=== PATIENT | female | born 1985 | race Caucasian/White ===

== ENCOUNTER 2017-11-25 15:09 | Emergency (ER) | payer MEDICAID, SELFPAY ==
[2017-11-25 15:10] VITALS: BP 127/87; PULSE 89; RESP 16; TEMP 36.2; O2SAT 100; BMI 22.4
--- NOTE | 2017-11-25 15:54 | ED.DCSUM_ITS ---
- ER Visit Summary Date of Service: 11/25/17 Chief Complaint: Wrist pain History of Present Illness: The patient is a 32 F who fractured her left wrist 3 days ago. She was seen at urgent care. She did not require reduction. She was placed in a sugar tong splint. She has had increasing pain yesterday and today. She has been elevating her wrist. Denies any numbness. Has any systemic symptoms. Physical Examination: Vitals unremarkable. Neurovascular intact distally. Mild diffuse swelling to the hand and wrist. Compartments are soft. Good range of motion. Skin intact. Test Results: None indicated Emergency Department Course and Treatment: Old splint was removed. Patient had some swelling and pain. The pain is not out of proportion. She does not have pulselessness, paresthesias, pain with passive range of motion, pallor, or any other signs of compartment syndrome. Skin is intact. AP splint applied. Patient tolerated this well. Neurovascularly intact distally. OARRS report was negative. Patient was given a short course of [place]. Rest, ice, elevate. Follow-up with orthopedics as planned in 3 days. Treatment Plan: As above Disposition: Discharged Impression: 1. Fractured left wrist subsequent encounter This note was generated with [employer] dictation software. It may contain incorrect words, spelling, and punctuation that were not noted in review of the chart prior to signing ED Disposition - Plan for ED Patient: Chief Complaint: Upper Extremity Injury Referrals: Care Physician,No Primary [Primary Care Provider] -
--- NOTE | 2017-11-25 15:56 | DCINST.ED_ITS ---
ED Disposition - Plan for ED Patient: Chief Complaint: Upper Extremity Injury Instructions: ED Splint Care Fiberglass Prescriptions: Hydrocodone Bitart/Apap 5-325 [[place] 5MG-325MG] 1 tab PO Q6H PRN PRN 3 Days #10 tab PRN Reason: Pain Additional Instructions: Follow-up with your orthopedic doctor as scheduled.
== END 2017-11-25 16:04 | disposition home or self-care (01) ==
LOC: ED 15:33
PROVIDERS: Emergency Provider Emergency Medicine
DX: S62.102A Fracture of unspecified carpal bone, left wrist, initial encounter for closed fracture (principal); X58.XXXA Exposure to other specified factors, initial encounter; Y93.9 Activity, unspecified; Y92.9 Unspecified place or not applicable; Z72.0 Tobacco use
CPT/HCPCS: 29125; 99282

== ENCOUNTER → 2017-12-28 13:46 | Outpatient (CLI) | payer MEDICAID, SELFPAY ==
[2017-12-28 16:05] LABS: Anion Gap 7 (5-15); BUN 24 mg/dL (7-18); BUN/Creat Ratio 30.9 RATIO (10-20); Calcium,Total 9.1 mg/dL (8.5-10.1); Chloride 103 mmol/L (98-107); Creatinine, Serum 0.78 mg/dL (0.55-1.02); EST Glomerular Filtration Rate 91 mL/min (>60); Est Glom Filt Rate - Afr Amer 111 mL/min (>60); Free T3 2.5 pg/mL (2.18-3.98); Glucose 95 mg/dL (74-106); Sodium Level 136 mmol/L (136-145); T4 Free Direct 0.81 ng/dL (0.76-1.46); Thyroid Stim Hormone (TSH) 0.34 uIU/mL (0.358-3.74)
[2017-12-28 17:21] LABS: Chlamydia Trachomatis by PCR Negative (Negative); Neisserai gonorrhoeae by PCR Negative (Negative); Probe Check PASS; Sample Adequacy Control PASS; Specimen Processing Control PASS
[2018-01-05 11:47] LABS: HPV HC, High Risk Positive (Negative)
[2018-01-05 12:30] LABS: HPV Reflexed? YES, CHARGE PATIENT
== END ==
PROVIDERS: Visit Provider Obstetrics & Gynecology
DX: R60.9 Edema, unspecified (principal); R23.8 Other skin changes; Z12.4 Encounter for screening for malignant neoplasm of cervix; Z11.3 Encounter for screening for infections with a predominantly sexual mode of transmission
CPT/HCPCS: 36415; 80048; 84439; 84443; 84481; 87491; 87591; 87624; 88175; G0145

== ENCOUNTER 2018-12-31 10:13 | Inpatient (IN) | payer MEDICAID, SELFPAY ==
[2018-12-31] VITALS (8 sets, daily range): BP systolic 86–119; BP diastolic 49–70; PULSE 79–125; RESP 12–16; TEMP 37.2–38.6; O2SAT 94–100; BMI 26.4; BMI 26.7; BMI 26.8
[2018-12-31 10:51] LABS: Mucous, Urine 0 SEEN /hpf (<or=2+)
[2018-12-31] MEDS: 0.9% Normal Saline 1,000 ML 999 ML IV (10:51)
[2018-12-31 11:00] LABS: Absolute Lymphocyte Count 0.56 X10^3/uL (0.83-4.51); Absolute Neutrophil Count 1.2 X10^3/uL (2.0-7.7); Hematocrit 43.3 % (37-47); Hemoglobin 15.2 g/dL (12.0-15.0); Lymphocyte # 0.56 X10^3/ul (4.0); Lymphocyte % 29.2 % (19-41); Mean Corp Hgb Conc 35.1 g/dL (32-36); Mean Corpuscular Hgb 33.5 pg (27.0-32.0); Mean Corpuscular Volume 95.4 fL (81-99); Mean Platelet Vol. 9.9 fl (6.2-12.0); Monocyte# 0.13 X10^3/uL; Monocyte% 6.8 % (0-10); NRBC Flagged by Analyzer 0 % (0-5); Neutrophil # 1.22 X10^3/uL (2.7-7.7); Neutrophil % 63.5 % (47-70); POSITIVE DIFFERENTIAL YES; POSITIVE MORPHOLOGY YES; Platelet Count 88 K/mm3 (150-450); RBC Distribution Width SD 45.1 fl (35.1-43.9); Red Blood Count 4.54 M/mm3 (4.2-5.4); White Blood Count 1.9 K/mm3 (4.4-11.0)
--- NOTE | 2018-12-31 11:00 | ED.DCSUM_ITS ---
- ER Visit Summary Date of Service: 12/31/18 Chief Complaint: UTI History of Present Illness: The patient is a 33 F with UTI symptoms. She has urinary frequency and dysuria as well as lower abdominal pain and mid back pain. She was started on antibiotics 3 days ago at urgent care. She is not feeling any better. She thinks she was started on Bactrim but is not 100% sure. Reports fevers as high as 102. Denies any other associated symptoms. Physical Examination: Afebrile and vital signs unremarkable except for heart rate of 125. No acute distress. Skin appears normal. Abdomen soft and nontender. No guarding or rebound. CVAs are nontender. Test Results: Basic labs, lactate, urinalysis, hCG pending. Culture pending. Emergency Department Course and Treatment: Patient treated with fluids and Toradol while awaiting results. White count is 1.9 and hemoglobin 15.2. Sodium 132, potassium 3.1, creatinine 1.37. Urinalysis shows elevated leukocyte esterase, nitrites, blood, 5-10 white cells. Culture pending. Lactate negative. hCG negative. Treatment Plan: Patient treated with fluids and Toradol. On reevaluation, she is stable. She does meet sepsis criteria. I believe she would benefit from inpatient care even her failed outpatient care. Hospitalist will admit. She was treated with Rocephin. Disposition: As above Impression: 1. UTI 2. Sepsis This note was generated with [employer] dictation software. It may contain incorrect words, spelling, and punctuation that were not noted in review of the chart prior to signing ED Disposition - Plan for ED Patient: Referrals: Care Physician,No Primary [Primary Care Provider] -
[2018-12-31 11:10] LABS: Differential Indicated SCAN CRITERIA MET
[2018-12-31 11:11] LABS: Anion Gap 9 (5-15); BUN 11 mg/dL (7-18); Calcium,Total 8.5 mg/dL (8.5-10.1); Chloride 101 mmol/L (98-107); Creatinine, Serum 1.37 mg/dL (0.55-1.02); EST Glomerular Filtration Rate 47 mL/min (>60); Est Glom Filt Rate - Afr Amer 57 mL/min (>60); Estimated Creatinine Clearance 41.95 ml/min; Glucose 102 mg/dL (74-106); Potassium 3.1 mmol/L (3.5-5.1); Sodium Level 132 mmol/L (136-145)
[2018-12-31 11:19] LABS: Color, Urine Yellow (Yellow); Glucose, Dipstick Normal (Normal); Ketone-Dipstick 5 mg/dl (Negative); Leukocyte Esterase-Dipstick 100 /ul (Negative); Nitrite-Dipstick Positive (Negative); Occult Blood-Urine 150 /ul (Negative); Protein-Dipstick 100 mg/dl (Negative); Urine Bilirubin Dipstick 1 mg/dL (Negative); Urine Clarity Cloudy (Clear); Urine Urobilinogen 1 mg/dl (Normal)
[2018-12-31 11:20] LABS: Lactic Acid 0.8 mmol/L (0.4-2.0)
[2018-12-31 11:20] LABS: Internal QC Validated? YES +Cl - CLEAR BKGD; Pregnancy, Urine Negative Negative
[2018-12-31] MEDS: Ketorolac 15 MG/ML Vial IV ×2 (11:21→22:18)
[2018-12-31 11:30] LABS: Bacteria 1+ /hpf (None Seen); Red Blood Cells-Urine 0-5 SEEN /hpf (0-5); Squamous Epithelial Cells - UA 5-10 SEEN /hpf (5-10); White Blood Cells 5-10 SEEN /hpf (0-5)
[2018-12-31 11:48] LABS: Platelet Estimate MOD DEC (ADEQ)
[2018-12-31 11:49] LABS: Red Cell Morphology NORM C+C NORMAL (NORM C&C)
[2018-12-31] MEDS: Ceftriaxone 1 GM/50 ML BAG IV (12:42)
[2018-12-31] MEDS: 0.9% Normal Saline 1,000 ML 150 ML IV ×2 (13:50→20:25)
[2018-12-31 15:08] LABS: Prothrombin Time (Protime)PT. 12.9 SECONDS (11.7-14.9)
--- NOTE | 2018-12-31 15:20 | CT_ITS ---
STUDY: CT ABDOMEN AND PELVIS WITHOUT CONTRAST REASON FOR EXAM: Female, 33 years old. UTI SYMPTOMS/LOW ABD AND BACK PAIN RADIATION DOSAGE (If Supplied By Facility): CTDIvol = ( 6.86 ) mGy, DLP = ( 310.58 ) mGycm TECHNIQUE: Transaxial images were obtained from the dome of the diaphragm to the symphysis pubis without oral contrast, and without intravenous contrast. Sagittal and coronal images were reconstructed. Individualized dose optimization techniques were used for this CT. COMPARISON: None. FINDINGS: The visualized lung bases are unremarkable. The visualized portions of the heart are within normal limits. Normal liver. The gallbladder is contracted. Normal spleen. Normal pancreas. Normal bilateral adrenal glands. Normal right kidney. Normal left kidney. No definite renal or ureteral stones are seen. There is no hydronephrosis on either side. Evaluation of the GI tract is limited by absence of oral contrast. Cannot exclude stomach wall thickening. No dilated loops of bowel or evidence for obstruction. Cannot exclude segmental thickening of the guillermo of the small or large bowel. Cannot exclude enteritis or colitis. Moderate diffuse fecal retention. Question previous appendectomy. Correlate with history. Normal abdominal aorta. Normal inferior vena cava. Normal retroperitoneum. Normal urinary bladder. Normal visualized uterus. Normal abdominal wall. Normal osseous structures. CT/Abdomen/Pelvis without Cont IMPRESSION: No definite acute abnormality. Evaluation of the GI tract is limited without oral contrast. Electronically Signed: Lucho Nguyen MD at 17:06 EDT , Service support ,
[2018-12-31] MEDS: Potassium Chloride 10mEq/100mL 10 MEQ/100 ML IV.SOLN. 100 MEQ IV BOLUS ×3 (16:19→18:34)
[2018-12-31] MEDS: Acetaminophen 325 MG Tablet 650 MG PO ×2 (17:10→23:11)
--- NOTE | 2018-12-31 19:45 | HP.PCM_ITS ---
Problem List (1) Pyelonephritis Status: Acute (2) Severe sepsis Status: Acute (3) Leukopenia Status: Acute Qualifiers: Neutropenia type: other drug-induced Comment: Likely secondary to Bactrim (4) Thrombocytopenia Status: Acute (5) Tobacco dependence Status: Chronic (6) Migraines Status: Chronic Comment: pt has self diagnosed herself (7) Adverse drug reaction Status: Acute Comment: Leukopenia and thrombocytopenia suspected to be secondary to Bactrim (8) Hyponatremia Status: Acute (9) Hypokalemia Status: Acute History of Present Illness Date of Admission: 12/31/18 Chief Complaint: Urinary frequency, urgency and dysuria The patient is a 33 year old F with no significant past medical history who presented to the emergency department at [facility] on 12/31/2018 complaining of burning with urination, urinary frequency, low back pain and suprapubic discomfort. She had recently been seen in an urgent care and was placed on Bactrim for suspected urinary tract infection. She has had fevers to 103 degrees. Vital signs of presentation to the emergency room were temperature 98.9, pulse rate 125, blood pressure 119/70, respiratory rate 16 and she was 94 to 97% saturated on room air. CBC was remarkable for a white blood cell count of 1.9 and platelets of 88,000. BMP was remarkable for a low sodium at 132, low potassium at 3.1, BUN of 11 and a creatinine of 1.37. Creatinine on 12/28/2017 was 0.78. UA showed positive nitrites with 5-10 WBCs per high-power field, 5-10 squamous epithelial cells and +1 bacteria. Urine culture and blood cultures were sent. She was admitted to the hospital with a diagnosis of severe sepsis with acute renal failure likely secondary to acute pyelonephritis, and thrombocytopenia and leukopenia likely secondary to adverse reaction to Bactrim. 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 Denies: Chills, Fever, Weight Change HEENT: Reports: Head Aches. Denies: Sinus Congestion, Sinus Drainage Cardiovascular: Denies: Chest Pain, Palpitations Respiratory: Denies: Cough, Shortness of breath at rest, Sputum production Gastrointestinal: Reports: Abdominal Pain - Suprapubic in location, Nausea. Denies: Vomiting Genitourinary: Reports: Frequency, Hesitancy, Urgency. Denies: Dysuria Gynecological: Denies: Vaginal discharge Musculoskeletal: Reports: Back Pain - Low back pain bilaterally, no flank tenderness. Denies: Joint Pain, Joint Tenderness Skin: Denies: Rash, Wounds Neurological: Denies: Numbness, Tingling, Focal weakness Psychiatric: Denies: Anxiety, Depression, Homicidal Ideations, Suicidal Ideations Hematologic/ Lymphatic: Denies: Easy Bruising, Easy Bleeding, Hx of blood clot VTE Information - Inpt Only VTE Present on Admission: No VTE Mechan Device Prophylaxis: None VTE Pharm Prophylaxis ordered?: No Reason prophylaxis not ordered:: Treatment Not Indicated - Low risk for DVT the patient is ambulatory Patient Problems: Active and Suspected Problems Pyelonephritis (Acute) Severe sepsis (Acute) Leukopenia (Acute) Likely secondary to Bactrim Thrombocytopenia (Acute) Adverse drug reaction (Acute) Leukopenia and thrombocytopenia suspected to be secondary to Bactrim Hyponatremia (Acute) Hypokalemia (Acute) - Physical Exam General: Alert, Oriented x3, Cooperative HEENT: Atraumatic, PERRLA, EOMI, Normocephalic Neck: Supple, No JVD, Negative Carotid Bruits Lungs: No rhonchi, No rales, Wheezes - She has persistent inspiratory wheeze in the right base posteriorly Cardiovascular: Regular rate, No murmurs Abdomen: Bowel Sounds Present, Soft, Non Tender, Non-Distended Extremities: No clubbing, No cyanosis, No edema, Capillary Refill Less than 3 Seconds Skin: No rashes, No breakdown Musculoskeletal: No Tenderness to Palpation of Joints or Extremities Neurological: Cranial nerves II-XII grossly intact, Neuro grossly intact Psych/Mental Status: Normal Affect, Appropriate Vital Signs Temp Pulse Resp BP Pulse Ox 100.2 F H 83 16 101/49 L 99 12/31/18 18:00 12/31/18 17:31 12/31/18 17:31 12/31/18 17:31 12/31/18 17:31 Oxygen Delivery Method Room Air Weight: 137 lb 2 oz Body Mass Index (BMI) 26.7 Intake and Output for Last 24 Hours 12/29/18 12/30/18 12/31/18 23:59 23:59 23:59 Intake Total 1242 / 1242 Balance 1242 / 1242 Laboratory Tests Past 24 Hrs 12/31/18 12/31/18 12/31/18 10:10 10:10 10:40 WBC 1.9 L RBC 4.54 Hgb 15.2 H Hct 43.3 MCV 95.4 MCH 33.5 H MCHC 35.1 RDW Std Deviation 45.1 H RDW Coeff of Deb 13.0 Plt Count 88 L MPV 9.9 Immature Gran % (Auto) 0.500 Neut % (Auto) 63.5 Lymph % (Auto) 29.2 [place] % (Auto) 6.8 Eos % (Auto) 0.0 Baso % (Auto) 0.0 Absolute Neuts (auto) 1.2 L Absolute Lymphs (auto) 0.56 L Nucleated RBC % 0 Differential Comment Diff Path Review May foll Platelet Estimate MOD DEC RBC Morphology NORM C+C PT INR Sodium Potassium Chloride Carbon Dioxide Anion Gap BUN Creatinine Estim Creat Clear Calc Est GFR (MDRD) Af Amer Est GFR (MDRD) Non-Af BUN/Creatinine Ratio Glucose Lactic Acid Calcium Urine Color Yellow Urine Clarity Cloudy Urine pH 6.0 Ur Specific [place] 1.020 Urine Protein 100 H Urine Glucose (UA) Normal Urine Ketones 5 H Urine Occult Blood 150 H Urine Nitrite Positive H Urine Bilirubin 1 H Urine Urobilinogen 1 H Ur Leukocyte Esterase 100 H Urine RBC 0-5 SEEN Urine WBC 5-10 SEEN Ur Squamous Epith Cells 5-10 SEEN Urine Bacteria 1+ Urine Mucus 0 SEEN Urine Test Negative 12/31/18 12/31/18 12/31/18 10:40 10:40 14:35 WBC RBC Hgb Hct MCV MCH MCHC RDW Std Deviation RDW Coeff of Deb Plt Count MPV Immature Gran % (Auto) Neut % (Auto) Lymph % (Auto) [place] % (Auto) Eos % (Auto) Baso % (Auto) Absolute Neuts (auto) Absolute Lymphs (auto) Nucleated RBC % Differential Comment Diff Path Review Platelet Estimate RBC Morphology PT 12.9 INR 1.0 Sodium 132 L Potassium 3.1 L Chloride 101 Carbon Dioxide 22.0 Anion Gap 9 BUN 11 Creatinine 1.37 H Estim Creat Clear Calc 41.95 Est GFR (MDRD) Af Amer 57 L Est GFR (MDRD) Non-Af 47 L BUN/Creatinine Ratio 8.0 L Glucose 102 Lactic Acid 0.8 Calcium 8.5 Urine Color Urine Clarity Urine pH Ur Specific [place] Urine Protein Urine Glucose (UA) Urine Ketones Urine Occult Blood Urine Nitrite Urine Bilirubin Urine Urobilinogen Ur Leukocyte Esterase Urine RBC Urine WBC Ur Squamous Epith Cells Urine Bacteria Urine Mucus Urine Test Assessment/Plan All Active Problems Pyelonephritis (Acute) Severe sepsis (Acute) Leukopenia (Acute) Thrombocytopenia (Acute) Adverse drug reaction (Acute) Hyponatremia (Acute) Hypokalemia (Acute) Impressions 1. Severe sepsis secondary to pyelonephritis with acute renal failure 2. Leukopenia and thrombocytopenia-suspect secondary to adverse reaction to Bactrim 3. Tobacco dependence 4. Hyponatremia 5. Hypokalemia Urine and blood cultures X 2 Hydrate Recheck the lab in the AM Start Rocephin 1 g IV daily No DVT prophylaxis needed because the risk is 0-1 and the patient is ambulatory She was able to eat a regular lunch with no nausea no vomiting. CT scan of the abdomen and pelvis without contrast to rule out nephrolithiasis Code Visit Inpatient E&M: 21674 Init Hosp L3
[2018-12-31] MEDS: 0.9% NaCl Peripheral Flush Adult/Peds IV (22:18)
[2019-01-01] VITALS (9 sets, daily range): BP systolic 85–115; BP diastolic 50–66; PULSE 78–90; RESP 16–18; TEMP 36.8–38.1; O2SAT 94–100
[2019-01-01] MEDS: 0.9% Normal Saline 1,000 ML 150 ML IV ×4 (03:45→23:50)
[2019-01-01] MEDS: Acetaminophen 325 MG Tablet 650 MG PO ×4 (05:13→23:50)
[2019-01-01 06:55] LABS: Hematocrit 36.1 % (37-47); Hemoglobin 12.4 g/dL (12.0-15.0); Mean Corp Hgb Conc 34.3 g/dL (32-36); Mean Corpuscular Hgb 33.6 pg (27.0-32.0); Mean Corpuscular Volume 97.8 fL (81-99); Mean Platelet Vol. 10.4 fl (6.2-12.0); POSITIVE COUNT YES; Platelet Count 67 K/mm3 (150-450); RBC Distribution Width CV 13.2 % (11.6-14.6); RBC Distribution Width SD 47.1 fl (35.1-43.9); Red Blood Count 3.69 M/mm3 (4.2-5.4)
[2019-01-01 07:06] LABS: White Blood Count 1.4 K/mm3 (4.4-11.0)
[2019-01-01 07:07] LABS: Scan Indicated on CBC? Y/N YES- FLAGS NOTED
[2019-01-01 07:28] LABS: ALB/GLOB Ratio 0.9 RATIO (0.9-2.4); AST(SGOT) 48 U/L (15-37); Alanine Aminotransfer ALT/SGPT 32 U/L (13-56); Albumin, Serum 2.4 g/dL (3.2-5.0); Alkaline Phosphatase 74 U/L (45-117); Anion Gap 8 (5-15); BUN 7 mg/dL (7-18); BUN/Creat Ratio 8.5 RATIO (10-20); Calcium,Total 7.2 mg/dL (8.5-10.1); Chloride 113 mmol/L (98-107); Creatinine, Serum 0.83 mg/dL (0.55-1.02); EST Glomerular Filtration Rate 85 mL/min (>60); Est Glom Filt Rate - Afr Amer 102 mL/min (>60); Estimated Creatinine Clearance 69.25 ml/min; Globulin 2.7 g/dL (2.2-4.2); Glucose 108 mg/dL (74-106); Protein, Total 5.1 g/dL (6.4-8.2); Sodium Level 141 mmol/L (136-145)
--- NOTE | 2019-01-01 09:19 | PN_ITS ---
Patient Problems: Active and Suspected Problems Pyelonephritis (Acute) Severe sepsis (Acute) Leukopenia (Acute) Likely secondary to Bactrim Thrombocytopenia (Acute) Adverse drug reaction (Acute) Leukopenia and thrombocytopenia suspected to be secondary to Bactrim Hyponatremia (Acute) Hypokalemia (Acute) Subjective: Day #2 Rocephin, Day #1 Levaquin Patient has severe sepsis secondary to UTI that was started on Bactrim on Monday. Today, she still has a low WBC count, neutropenic and thrombocytopenic. She is placed on a neutropenic diet and is placed on reverse isolation protocol. Patient admitted to abdominal and back pain consistent with the pain she was having yesterday. She admitted that she did not get much sleep overnight due to the pain and that the Percocet that she was given only helped temporarily. She had chills overnight and was placed on scheduled acetaminophen. She said that she feels less dehydrated and denies having dysuria. Temperature has returned to normal at 98.3, on scheduled Tylenol Blood pressure remains low-normal at 85/50 to 119/70 with the left arm running lower than the right arm over the past 24hrs. Patient is 98% on room air. - Physical Exam General: Alert, Oriented x3, Cooperative, - - mild distress secondary to abdominal and back pain HEENT: Atraumatic, PERRLA, EOMI Oral: Moist Mucosa Lungs: Clear to auscultation, Normal air movement, No rhonchi Cardiovascular: Regular rate, Regular Rhythm, Normal S1, Normal S2, No murmurs Abdomen: Bowel Sounds Present, Non-Distended, Tender - No guarding with palpatio n, no masses, - - pain unchanged from yesterday Extremities: No clubbing, No cyanosis, No edema Neurological: Neuro grossly intact Psych/Mental Status: Normal Affect, Appropriate Vital Signs Temp Pulse Resp BP Pulse Ox 98.3 F 78 16 94/52 L 98 01/01/19 03:29 01/01/19 03:29 01/01/19 03:29 01/01/19 06:33 01/01/19 07:06 Oxygen Delivery Method Room Air Weight: 137 lb 2 oz Body Mass Index (BMI) 26.7 Intake and Output for Last 24 Hours 12/30/18 12/31/18 01/01/19 23:59 23:59 23:59 Intake Total 2867 / 2867 627 / 627 Balance 2867 / 2867 627 / 627 Laboratory Tests Past 24 Hrs 12/31/18 12/31/18 12/31/18 10:10 10:10 10:40 WBC 1.9 L RBC 4.54 Hgb 15.2 H Hct 43.3 MCV 95.4 MCH 33.5 H MCHC 35.1 RDW Std Deviation 45.1 H RDW Coeff of Deb 13.0 Plt Count 88 L MPV 9.9 Immature Gran % (Auto) 0.500 Neut % (Auto) 63.5 Lymph % (Auto) 29.2 [place] % (Auto) 6.8 Eos % (Auto) 0.0 Baso % (Auto) 0.0 Absolute Neuts (auto) 1.2 L Absolute Lymphs (auto) 0.56 L Nucleated RBC % 0 Differential Comment Diff Path Review May foll Platelet Estimate MOD DEC RBC Morphology NORM C+C PT INR Sodium Potassium Chloride Carbon Dioxide Anion Gap BUN Creatinine Estim Creat Clear Calc Est GFR (MDRD) Af Amer Est GFR (MDRD) Non-Af BUN/Creatinine Ratio Glucose Lactic Acid Calcium Total Bilirubin AST ALT Alkaline Phosphatase Total Protein Albumin Globulin Albumin/Globulin Ratio Urine Color Yellow Urine Clarity Cloudy Urine pH 6.0 Ur Specific [place] 1.020 Urine Protein 100 H Urine Glucose (UA) Normal Urine Ketones 5 H Urine Occult Blood 150 H Urine Nitrite Positive H Urine Bilirubin 1 H Urine Urobilinogen 1 H Ur Leukocyte Esterase 100 H Urine RBC 0-5 SEEN Urine WBC 5-10 SEEN Ur Squamous Epith Cells 5-10 SEEN Urine Bacteria 1+ Urine Mucus 0 SEEN Urine Test Negative 12/31/18 12/31/18 12/31/18 10:40 10:40 14:35 WBC RBC Hgb Hct MCV MCH MCHC RDW Std Deviation RDW Coeff of Deb Plt Count MPV Immature Gran % (Auto) Neut % (Auto) Lymph % (Auto) [place] % (Auto) Eos % (Auto) Baso % (Auto) Absolute Neuts (auto) Absolute Lymphs (auto) Nucleated RBC % Differential Comment Diff Path Review Platelet Estimate RBC Morphology PT 12.9 INR 1.0 Sodium 132 L Potassium 3.1 L Chloride 101 Carbon Dioxide 22.0 Anion Gap 9 BUN 11 Creatinine 1.37 H Estim Creat Clear Calc 41.95 Est GFR (MDRD) Af Amer 57 L Est GFR (MDRD) Non-Af 47 L BUN/Creatinine Ratio 8.0 L Glucose 102 Lactic Acid 0.8 Calcium 8.5 Total Bilirubin AST ALT Alkaline Phosphatase Total Protein Albumin Globulin Albumin/Globulin Ratio Urine Color Urine Clarity Urine pH Ur Specific [place] Urine Protein Urine Glucose (UA) Urine Ketones Urine Occult Blood Urine Nitrite Urine Bilirubin Urine Urobilinogen Ur Leukocyte Esterase Urine RBC Urine WBC Ur Squamous Epith Cells Urine Bacteria Urine Mucus Urine Test 01/01/19 01/01/19 05:29 05:29 WBC 1.4 L* RBC 3.69 L Hgb 12.4 Hct 36.1 L MCV 97.8 MCH 33.6 H MCHC 34.3 RDW Std Deviation 47.1 H RDW Coeff of Deb 13.2 Plt Count 67 L MPV 10.4 Immature Gran % (Auto) Neut % (Auto) Lymph % (Auto) [place] % (Auto) Eos % (Auto) Baso % (Auto) Absolute Neuts (auto) Absolute Lymphs (auto) Nucleated RBC % Differential Comment Diff Path Review Platelet Estimate RBC Morphology PT INR Sodium 141 Potassium 4.0 Chloride 113 H Carbon Dioxide 20.0 L Anion Gap 8 BUN 7 Creatinine 0.83 Estim Creat Clear Calc 69.25 Est GFR (MDRD) Af Amer 102 Est GFR (MDRD) Non-Af 85 BUN/Creatinine Ratio 8.5 L Glucose 108 H Lactic Acid Calcium 7.2 L Total Bilirubin 0.20 AST 48 H ALT 32 Alkaline Phosphatase 74 Total Protein 5.1 L Albumin 2.4 L Globulin 2.7 Albumin/Globulin Ratio 0.9 Urine Color Urine Clarity Urine pH Ur Specific [place] Urine Protein Urine Glucose (UA) Urine Ketones Urine Occult Blood Urine Nitrite Urine Bilirubin Urine Urobilinogen Ur Leukocyte Esterase Urine RBC Urine WBC Ur Squamous Epith Cells Urine Bacteria Urine Mucus Urine Test Medical Necessity - Tobacco Use Smoking Status: Current every day smoker - 1 pack/day x 20 years Tobacco Use: Cigarettes Assessment/Plan All Active Problems Pyelonephritis (Acute) Severe sepsis (Acute) Leukopenia (Acute) Thrombocytopenia (Acute) Adverse drug reaction (Acute) Hyponatremia (Acute) Hypokalemia (Acute) Impressions 1. Severe sepsis secondary to UTI/ pyelonephritis 2. WBC count down to 1.4 from 1.9 and platelets are down to 67 from 88 secondary to adverse reaction to Bactrim 3. Tobacco dependence -Start Oxycodan q4hrs PRN for severe pain -continue acetaminophen 650mg PO Q6hr scheduled to control fever and chills -continue Rocephin 1gm in 50mL @ 200mL/hr IV Q24hrs -start Levaquin 500mg in 100mL @ 100mL/hr IV Q24hr for better coverage until cultures and sensitivities return -Start Granix to help stimulate WBC production -Start neutropenic diet and reverse isolation to prevent spread of infection while leukopenic -CT ruled out kidney stones was negative and no chris-nephric stranding -Consult to infectious disease placed to discuss severity of symptoms -Consult to heme/onc placed to discuss leukopenia -encourage smoking cessation -Patient does not require DVT prophylaxis secondary to low risk and she is ambulatory -Recheck lab in the a.m. Code Visit Inpatient E&M: 20559 Subs Hosp L2
[2019-01-01] MEDS: levoFLOXacin IV 500 MG/100 ML BAG 100 MG IV (09:49)
[2019-01-01] MEDS: Ceftriaxone 1 GM/50 ML BAG IV (09:49)
[2019-01-01] MEDS: oxyCODONE 5 MG Tablet 10 MG PO ×3 (09:49→19:15)
[2019-01-01 10:05] LABS: Lactic Acid 0.8 mmol/L (0.4-2.0)
[2019-01-01] MEDS: TBO-FILGRASTIM 300 MCG/0.5 ML ML SC (10:37)
--- NOTE | 2019-01-01 11:16 | CASEMGMT ---
CHAS STRAUSS assessment: Face to Face with patient for initial transition planning/care coordination assessment. CHAS STRAUSS introduced self and role at [facility], pt voices understanding and consents to assessment at this time. Pt is sitting up in chair in no distress at this time. Pt is A/Ox4 at this time and answers all questions appropriately at this time. Care providers, pharmacy, and demographics verified at this time. PCP: Pt states currently has no PCP, but would like a list of in-network providers. Specialists: Pt states no current specialists. [facility]erred [facility]: [facility] Insurance: [facility] Prescription Benefit: [facility] Living Will/HPOA: Pt states does not have LW/HPOA and declines info at this time. LNOK: Ilan Dow, father; Lili Dow, father Living Arrangements: Pt states lives with her children in a house and states no concerns at home at this time. Pt states is independent with ADL's. Transportation: Pt states she drives her self and states no transportation concerns. DME/HHC: Pt states no current DME or need for any at this time. Pt states no hx of HHC or SNF at this time. Pt states no concerns with going home at time of discharge. 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 Pt states does smoke 1 pk/day and rarely drinks ETOH. Pt states no further concerns/needs at this time. CM to follow for any further discharge planning/needs. Advised pt to ask for CM if any further questions/concerns/needs arise, voices understanding. Pt Goal: Home [place] CHAS STRAUSS
--- NOTE | 2019-01-01 16:26 | NURSING ---
REPORT CALLED AND GIVEN TO MIKEL DOHERTY AND NO QUESTIONS VOICED. PT MADE AWARE AND ASSISTED WITH PACKING UP BELONGINGS FOR TRANSFER.
--- NOTE | 2019-01-01 17:05 | ONC.CONS.INP ---
Consult Referring Physician: Dr. Brad Deleon. Consult Results: Leukopenia and Thrombocytopenia. Subjective Date of Service:: 01/01/19 Chief Complaint: Back pain/Dysuria History of Present Illness: 33 y.o.woman with no significant past medical history presented to [facility] emergency department on 12/31/2018 complaining of burning with urination, urinary frequency, low back pain, fever and suprapubic discomfort. She had recently been seen in an urgent care and was placed on Bactrim for suspected urinary tract infection. CBC was remarkable for a white blood cell count of 1.9 and platelets of 88,000. She was therefore admitted to the hospital with sepsis and on Ceftriaxone. She is feeling better now. Past Medical History: Chronic Problems Tobacco dependence (Chronic) Migraines (Chronic) pt has self diagnosed herself Past Medical/Surgical History: Past Medical History - Most Recent Inpatient Visit Past Medical History Start: 12/31/18 13:16 Text: Status: Complete Freq: ONCE Protocol: Document 12/31/18 13:16 KB (Rec: 12/31/18 13:26 KB [id number]) BMI Required to complete PMH What is Patient's BMI 26.8 Past Medical History Unable History Recalled Yes Query Text:Pt Unable/Family Not Present Neurologic Medical History Hx Stroke/TIA No Hx Dementia/Alzheimer's No Hx Parkinson's Disease No Hx Seizures No Hx Multiple Sclerosis No Hx Migraines Yes: Not diagnosed Cardiac Medical History VTE Present on Admission No Hx of Deep Vein Thrombosis/VTE/PE No Hx Hypertension No Hx Chest Pain/Angina No Hx Heart Attack No Hx Cardiac Surgery/Stents/Etc. No Hx Heart Failure No Hx Pacemaker/AICD No Hx Irregular Heartbeat and/or Afib No Hx Anticoagulant Therapy No Query Text:(Coumadin, Aspirin, Plavix, Xarelto, etc.) Hx Pain in Legs when Walking/Leg Cramps No Respiratory Medical History Hx COPD No Hx Emphysema No Hx Smoking Yes Smoking Status Current every day smoker Years Smoking 20 Packs Smoked per Day 1 Hx Smoking Cessation Counseling No Hx Smoking Exposure No Hx Tobacco Use in last 12 months Yes Sent to [facility] Yes Hx of Pipe Smoking No Hx of Cigar Smoking No Hx Sleep Apnea No Do you snore loudly (louder than talking No or can be heard through closed doors)? Do you often feel tired/ fatigued/ No sleepy during daytime? Has anyone observed you stop breathing No during sleep? STOP Results Negative GI Medical History Hx Ulcer No Hx Hepatitis No Hx Cirrhosis No Hx GI Bleed No Hx Unplanned Weight Loss No Genitourinary Medical History Indwelling Catheter in Place on Arrival/ No Admission Hx Renal Disease No Hx Dialysis No Musculoskeletal History Hx Arthritis No Hx Rheumatoid Arthritis No Endocrine Medical History Hx Diabetes No Hx Thyroid Disease No Hematologic Medical History Hx of Blood Transfusion No Hx of Transfusion in last 3 Months No Ever experience any problems with No transfusion(s)? Hx of Preganancy in last 3 Months No Nurse Filling Out Transfusion & KBRENNER Questions: Date: 12/31/18 Time: 13:25 Psycho/Social Medical History Hx Depression No Hx Anxiety No Hx Behavior Disorder No Hx Alcohol Use Yes: On occasion Hx Substance Use No Other Medical History Hx Blood Disorders No Hx Anemia No Hx Cancer No Hx Drug Resistant Organism No Wound/Pressure Injury Present on Arrival No /Admission Query Text:If yes, chart assessment in Shift/Clinical Findings Central Line/PICC/VAD Present on Arrival Yes /Admission Antibiotics within last 7 days? Yes Name of Antibiotic (Include dose/# days Bactrim taken if known) Last day ATB taken 12/31/18 Methicillin Resistant Staphylococcus aureus Screening Active MRSA No Risk for Readmission Number of Risk Factors 1 At Risk for Readmission Patient is Not at Risk Patient is eligible for Call Back N Maternal Family History: No pertinent history, - - No family history nephrolithiasis Paternal Family History: No pertinent history, - - No family history of kidney stones - Social History Smoking Status: Current every day smoker - 1 pack/day x 20 years Tobacco Use: Cigarettes Alcohol: Occasional Drugs: None Allergies/Adverse Reactions: Allergy/AdvReac Type Severity Reaction Status Date / Time sulfamethoxazole Allergy Low Verified 01/01/19 08:52 [From Bactrim] neutrophils trimethoprim [From Bactrim] Allergy Low Verified 01/01/19 08:52 neutrophils Review of Systems Constitutional:: Denies: Fever, Sweats, Weight loss, Appetite change, Chills Cardiovascular:: Denies: Chest pain, Palpitations, Dyspnea on exertion, Orthopnea, PND, Shortness of breath Respiratory: Denies: Cough, Hemoptysis, Shortness of Breath, Wheezing Gastrointestinal:: Denies: Abdominal pain, Nausea, Vomiting, Diarrhea, Constipation, Hematochezia Genitourinary: Denies: Dysuria, Hematuria, 15, Flank pain Musculoskeletal:: Denies: Back pain, Myalgia, Arthralgia Skin: Denies: Rash, Skin Changes, Wounds Neurological:: Denies: Headache, Dizziness, Visual changes, Tinnitus, Hearing loss Psychiatric: Denies: Anxiety, Depression, Homicidal Ideations, Suicidal Ideations Vital Signs Height 5 ft Weight: 62.199 kg Weight in Pounds 137.1 lbs Pulse Ox 98 Temperature 100.5 F Pulse Rate 83 Respiratory Rate 16 Blood Pressure [BP] 103/63 Blood Pressure 115/60 Blood Pressure Position [BP] Semi-Fowlers Blood Pressure Position Semi-Fowlers - Physical Exam General: Alert, Oriented x3, No apparent distress HEENT: Atraumatic, PERRLA, EOMI, Normocephalic Oropharynx:: Dry mucosa Neck:: Supple, Trachea midline. Negative for: JVD, bilateral Cardiac:: Regular rate, Regular rhythm, Normal S1, Normal S2. Negative for: Murmur Lungs: Clear to auscultation, Excusion symmetrical. Negative for: Rhonchi, Wheezes Abdomen:: Bowel sounds x 4, Soft, Non-tender, Non-distended. Negative for: Hepatosplenomegaly Extremities:: Negative for: Cyanosis, Edema Neurological: Neuro grossly intact Skin:: Negative for: Lesions, Rash, Petechiae, Ecchymosis Psychiatric:: Appropriate affect, Euthymic Lymphatics:: Negative for: Cervical lymphadenopathy, Supraclavicular lymphadenopathy, Axillary lymphadenopathy Laboratory Data: Microbiology 12/31/18 10:10 Urine Culture - Preliminary Urine, Clean Catch Culture exhibits no growth. Laboratory Tests 01/01/19 01/01/19 01/01/19 Range/Units 09:05 05:29 05:29 WBC 1.4 L* (4.4-11.0) K/mm3 RBC 3.69 L (4.2-5.4) M/mm3 Hgb 12.4 (12.0-15.0) g/dL Hct 36.1 L (37-47) % MCV 97.8 (81-99) fL MCH 33.6 H (27.0-32.0) pg MCHC 34.3 (32-36) g/dL RDW Std Deviation 47.1 H (35.1-43.9) fl RDW Coeff of Deb 13.2 (11.6-14.6) % Plt Count 67 L (150-450) K/mm3 MPV 10.4 (6.2-12.0) fl Differential Comment Sodium 141 (136-145) mmol/L Potassium 4.0 (3.5-5.1) mmol/L Chloride 113 H (98-107) mmol/L Carbon Dioxide 20.0 L (21.0-32.0) mmol/L Anion Gap 8 (5-15) BUN 7 (7-18) mg/dL Creatinine 0.83 (0.55-1.02) mg/dL Estim Creat Clear Calc 69.25 ml/min Est GFR (MDRD) Af Amer 102 (>60) mL/min Est GFR (MDRD) Non-Af 85 (>60) mL/min BUN/Creatinine Ratio 8.5 L (10-20) RATIO Glucose 108 H (74-106) mg/dL Lactic Acid 0.8 (0.4-2.0) mmol/L Calcium 7.2 L (8.5-10.1) mg/dL Total Bilirubin 0.20 (0.20-1.00) mg/dL AST 48 H (15-37) U/L ALT 32 (13-56) U/L Alkaline Phosphatase 74 (45-117) U/L Total Protein 5.1 L (6.4-8.2) g/dL Albumin 2.4 L (3.2-5.0) g/dL Globulin 2.7 (2.2-4.2) g/dL Albumin/Globulin Ratio 0.9 (0.9-2.4) RATIO Diagnostic Data: Diagnostic Data Abdomen/Pelvis CT 12/31/18 15:20 IMPRESSION: No definite acute abnormality. Evaluation of the GI tract is limited without oral contrast. Electronically Signed: Lucho Nguyen MD at 17:06 EDT , Service support , Assessment and Plan Leukopenia and Thrombocytopenia, etiology is multifactorial including sepsis, reaction to Bactrim. I believe it will resolved as sepsis is controlled and pt is off Bactrim. Suggestion is observe for now and continue management for sepsis. Transfuse Platelets if it decreases to 10K or less. Will not follow further during this admission. Call if new problems arise. Thank Medications: Prescriptions This Visit Medication Instructions Recorded NK 12/31/18 Medications Added to Medication List This Visit Category Date Time Status Ceftriaxone [Rocephin] Med 01/01/19 10:00 Active 1 gm in 50 ml IV Q24 Oxycodone [Oxyir] Med 01/01/19 09:36 Active 10 mg PO Q4H PRN PRN Tbo-Filgrastim [Granix] Med 01/01/19 10:00 Active 300 mcg SC DAILY levoFLOXacin IV [Levaquin IV] Med 01/01/19 10:00 Active 500 mg in 100 ml IV Q24 Primary Care Provider: No Primary Care Phys Referring Provider: Dariela Deleon DO - Problem List (1) Severe sepsis Status: Acute (2) Leukopenia Status: Acute Qualifiers: Neutropenia type: due to infection Comment: Likely secondary to Bactrim (3) Thrombocytopenia Status: Acute Code Visit Office Visits / Consults: [id number] IP Consult L5
[2019-01-01] MEDS: Ondansetron 4 MG/2 ML Vial IV (17:12)
[2019-01-02] VITALS (9 sets, daily range): BP systolic 90–120; BP diastolic 54–72; PULSE 87–99; RESP 16–24; TEMP 37.6–38.7; O2SAT 86–96
[2019-01-02] MEDS: Acetaminophen 325 MG Tablet 650 MG PO ×2 (05:04→20:21)
[2019-01-02] MEDS: oxyCODONE 5 MG Tablet 10 MG PO ×3 (05:06→17:28)
--- NOTE | 2019-01-02 05:21 | RAD_ITS ---
STUDY: X-RAY CHEST REASON FOR EXAM: Female, 33 years old. Inspiratory wheezing and shortness of breath. TECHNIQUE: Single AP portable view of the chest. COMPARISON: Prior comparison studies are not available for review at this time. FINDINGS: There is hyperinflation of the lungs consistent with chronic obstructive lung disease (COPD). There is mild prominence of bronchovascular markings. There is no demonstrated pleural abnormality. Normal size heart. Normal mediastinum and ish. There is prominence of the pulmonary hilar arteries with peripheral pulmonary vascular congestion. Normal visualized aortic arch and descending thoracic aorta. Normal visualized thoracic spine. Normal visualized ribs, clavicles, and shoulders. There is no demonstrated abnormality of the visualized soft tissue structures of the upper abdomen. RAD/Chest 1 View (Portable) IMPRESSION: Mild pulmonary congestion. Differential considerations include acute exacerbation of reactive airway disease or COPD; a viral infection or mycoplasma pneumonitis. Electronically Signed: Lesia Ding MD at 6:24 EDT , Service support ,
[2019-01-02] MEDS: 0.9% NaCl Peripheral Flush Adult/Peds IV ×2 (05:44→10:36)
[2019-01-02] MEDS: Ondansetron 4 MG/2 ML Vial IV (05:44)
[2019-01-02 06:14] LABS: Absolute Lymphocyte Count 1.33 X10^3/uL (0.83-4.51); Absolute Neutrophil Count 11.3 X10^3/uL (2.0-7.7); Basophil# 0.02 X10^3/uL; Basophil% 0.2 % (0-1); Hematocrit 36.8 % (37-47); Hemoglobin 12.7 g/dL (12.0-15.0); Lymphocyte # 1.33 X10^3/ul (4.0); Lymphocyte % 10.1 % (19-41); Mean Corp Hgb Conc 34.5 g/dL (32-36); Mean Corpuscular Volume 98.7 fL (81-99); Mean Platelet Vol. 10.7 fl (6.2-12.0); Monocyte# 0.16 X10^3/uL; Monocyte% 1.2 % (0-10); NRBC Flagged by Analyzer 0 % (0-5); Neutrophil # 11.25 X10^3/uL (2.7-7.7); Neutrophil % 85.6 % (47-70); POSITIVE MORPHOLOGY YES; Platelet Count 71 K/mm3 (150-450); RBC Distribution Width CV 13.6 % (11.6-14.6); RBC Distribution Width SD 49.2 fl (35.1-43.9); Red Blood Count 3.73 M/mm3 (4.2-5.4); White Blood Count 13.1 K/mm3 (4.4-11.0)
[2019-01-02 06:19] LABS: Differential Indicated SCAN CRITERIA MET
--- NOTE | 2019-01-02 06:31 | NURSING ---
Pt very distressed with her breathing. Was on the phone asking to be picked up saying 'she just wants to get out of here'. Pt states she feels worse today than she has felt. Pt remains to have 02 sats of 95% on RA and lungs now sound clear anteriorly. Placed pt on 2L 02 for comfort. Explained physiological process of sepsis. Pt distressed that her weight is up and concerned about fluid overload. Asked for the IV to be stopped. Same attended. Reassured pt that this nurse was doing everything to assist her. Offered to call to Dr to obtain an order for a breathing treatment to see if that would help her SOB - pt declined. Educated pt on positional changes to assist with breathing, incentive spirometer and reassured pt. Will continue to monitor closely.
[2019-01-02 07:06] LABS: Differential Comment SCANNED; Platelet Estimate MOD DEC (ADEQ)
--- NOTE | 2019-01-02 07:20 | NURSING ---
Pt's mother arrived on unit. Concerned about daughter's complaints. Vitals taken again as charted. Pt had removed 02. Reiterated same information about sepsis to mother. Pt stated she now had chest pain due to all the anxiety she was having. Stated she wanted to get out of here and go to [facility] and that we 'were doing nothing for her'. This nurse tried to reassure pt that all necessary actions were being taken. Advised pt that I would have to notify the Dr that she was having chest pain and get an EKG ordered. The pt said 'not to bother' as she would refuse the EKG and wanted to leave. Tried again to reassure pt and asked again about her chest pain. She denied having any chest pain. Pt's mother would like to speak to the Dr about their concerns. Stated the charge nurse had alerted the Dr of this. Will follow up on same.
--- NOTE | 2019-01-02 08:35 | CPS ---
Pt family member made me aware of a white pill under patient table on the floor. Lisset DOHERTY was called and came to room to address issue.
[2019-01-02] MEDS: Ceftriaxone 1 GM/50 ML BAG IV (10:33)
[2019-01-02] MEDS: TBO-FILGRASTIM 300 MCG/0.5 ML ML SC (10:33)
[2019-01-02] MEDS: levoFLOXacin IV 500 MG/100 ML BAG 100 MG IV (11:27)
--- NOTE | 2019-01-02 13:46 | PCM.HP.ID ---
Problem List (1) Pyelonephritis Status: Acute Reason for Consult: pyelonephritis Consulted by: Dr. Deleon History of Present Illness: The patient is a 33 year old F with no prior h/o uti, developed moderate sharp/aching back pain across lower back on 12/26. Denies abd pain or dysuria. Associated fever and chills. Went to urgent care, ucx done, given bactrim. Was feeling worse, came to ED 12/31, CT done, admitted on ceftriaxone. Developed dry cough, still with fever. Had leukopenia and thrombocytopenia as well as ANDREA. Seen by heme. Grider added 01/01. Labs improved, still some fever, back pain better. Full ROS performed and neg except as noted above. - Medical History Past Medical History (Chronic Problems): Chronic Problems Tobacco dependence (Chronic) Migraines (Chronic) pt has self diagnosed herself Allergies/Adverse Reactions: Allergies sulfamethoxazole [From Bactrim] Allergy (Verified 01/01/19 08:52) Low neutrophils trimethoprim [From Bactrim] Allergy (Verified 01/01/19 08:52) Low neutrophils Home Medications: Ambulatory Orders Medication Instructions Recorded NK 12/31/18 - Social History Tobacco Use: cigarettes Vital Signs Temp Pulse Resp BP Pulse Ox 99.7 F H 87 16 94/61 95 01/02/19 12:59 01/02/19 12:59 01/02/19 12:59 01/02/19 12:59 01/02/19 12:59 Oxygen Flow Rate (L/min) 2 Oxygen Delivery Method Room Air Weight: 66 kg Body Mass Index (BMI) 26.7 Microbiology Past 72 Hours 12/31/18 14:35 Blood Culture - Preliminary Blood Culture (Wb) - Arm Right No growth in 48 hours. 12/31/18 10:10 Urine Culture - Final Urine, Clean Catch Mixed Gram Positive Organisms Laboratory Tests Past 24 Hrs 01/02/19 06:00 WBC 13.1 H RBC 3.73 L Hgb 12.7 Hct 36.8 L MCV 98.7 MCH 34.0 H MCHC 34.5 RDW Std Deviation 49.2 H RDW Coeff of Deb 13.6 Plt Count 71 L MPV 10.7 Immature Gran % (Auto) 2.900 H Neut % (Auto) 85.6 H Lymph % (Auto) 10.1 L [place] % (Auto) 1.2 Eos % (Auto) 0.0 Baso % (Auto) 0.2 Absolute Neuts (auto) 11.3 H Absolute Lymphs (auto) 1.33 Nucleated RBC % 0 Differential Comment SCANNED Platelet Estimate MOD DEC - Other Studies Radiology: [] reviewed Other Studies: [] Route of nutrition/ use of supplements: [] Nutritional Intake: [] IV Site: [] Hernandez Catheter: [] - Physical Exam General: Alert, Oriented x3, Cooperative, No apparent distress HEENT: Atraumatic, PERRLA, EOMI Neck: Supple, No Nodes Lungs: Clear to auscultation, Normal air movement Cardiovascular: Regular rate, Regular Rhythm Abdomen: Soft, Non Tender, Non-Distended, - - no back pain Extremities: No edema Skin: No rashes IV Site: Peripheral, without redness Musculoskeletal: No Tenderness to Palpation of Joints or Extremities Neurological: Cranial nerves II-XII grossly intact - Assessment/Plan Antibiotics: [] Assessment/Plan: [] Active and Suspected Problems Pyelonephritis (Acute) Severe sepsis (Acute) Leukopenia (Acute) Likely secondary to Bactrim Thrombocytopenia (Acute) Adverse drug reaction (Acute) Leukopenia and thrombocytopenia suspected to be secondary to Bactrim Hyponatremia (Acute) Hypokalemia (Acute) Enterococcus pyelonephritis - complicated by bone marrow suppression and ANDREA associated with bactrim. Spoke with [facility] micro lab, cxs and susc to be faxed to floor. Will stop ceftriaxone. Check resp viral pcr given ongoing fever and cough. Will continue levaquin while fax is pending; may be able to narrow to amoxicillin if it is sensitive. Will follow, thank you.
[2019-01-02 15:36] LABS: Pathologist Review Reviewed
[2019-01-02 15:45] LABS: Pathologist Review Reviewed
[2019-01-03] MEDS: Acetaminophen 325 MG Tablet 650 MG PO ×3 (00:55→11:26)
[2019-01-03 02:12] VITALS: BP 98/47; PULSE 70; RESP 16; TEMP 37.2; O2SAT 97
--- NOTE | 2019-01-03 06:08 | PN_ITS ---
Patient Problems: Active and Suspected Problems Pyelonephritis (Acute) Severe sepsis (Acute) Leukopenia (Acute) Likely secondary to Bactrim Thrombocytopenia (Acute) Adverse drug reaction (Acute) Leukopenia and thrombocytopenia suspected to be secondary to Bactrim Hyponatremia (Acute) Hypokalemia (Acute) Subjective: Day #3 Levaquin All events the past [address] Arellano's consult-lab at [facility] confirms the patient grew enterococcus from the initial urine culture. Rocephin was discontinued and the patient remains on Levaquin. T-max yesterday was 101.6. Current temperature is 99 ?F..... She last had acetaminophen at 0549 Respiratory panel ordered by Dr. Arellano is pending. - Physical Exam Vital Signs Temp Pulse Resp BP Pulse Ox 99 F 70 16 98/47 L 97 01/03/19 02:12 01/03/19 02:12 01/03/19 02:12 01/03/19 02:12 01/03/19 02:12 Oxygen Flow Rate (L/min) 2 Oxygen Delivery Method Room Air Weight: 145 lb 8.081 oz Body Mass Index (BMI) 26.7 Intake and Output for Last 24 Hours 01/01/19 01/02/19 01/03/19 23:59 23:59 23:59 Intake Total 4822 / 4822 1520 / 1920 400 / 400 Output Total 350 / 350 Balance 4472 / 4472 1520 / 1920 400 / 400 Microbiology Past 72 Hours 12/31/18 14:35 Blood Culture - Preliminary Blood Culture (Wb) - Arm Right No growth in 48 hours. 12/31/18 10:10 Urine Culture - Final Urine, Clean Catch Mixed Gram Positive Organisms Laboratory Tests Past 24 Hrs 12/31/18 01/01/19 01/02/19 10:40 05:29 06:00 WBC 13.1 H RBC 3.73 L Hgb 12.7 Hct 36.8 L MCV 98.7 MCH 34.0 H MCHC 34.5 RDW Std Deviation 49.2 H RDW Coeff of Deb 13.6 Plt Count 71 L MPV 10.7 Immature Gran % (Auto) 2.900 H Neut % (Auto) 85.6 H Lymph % (Auto) 10.1 L [place] % (Auto) 1.2 Eos % (Auto) 0.0 Baso % (Auto) 0.2 Absolute Neuts (auto) 11.3 H Absolute Lymphs (auto) 1.33 Nucleated RBC % 0 Differential Comment SCANNED Diff Path Review Reviewed Reviewed Platelet Estimate MOD DEC Medical Necessity - Tobacco Use Smoking Status: Current every day smoker - 1 pack/day x 20 years Tobacco Use: Cigarettes Assessment/Plan All Active Problems Pyelonephritis (Acute) Severe sepsis (Acute) Leukopenia (Acute) Thrombocytopenia (Acute) Adverse drug reaction (Acute) Hyponatremia (Acute) Hypokalemia (Acute)
[2019-01-03 06:49] LABS: Hematocrit 38.7 % (37-47); Hemoglobin 13.5 g/dL (12.0-15.0); Mean Corp Hgb Conc 34.9 g/dL (32-36); Mean Corpuscular Hgb 34.3 pg (27.0-32.0); Mean Corpuscular Volume 98.2 fL (81-99); Mean Platelet Vol. 10.2 fl (6.2-12.0); Platelet Count 91 K/mm3 (150-450); RBC Distribution Width CV 13.6 % (11.6-14.6); RBC Distribution Width SD 49.6 fl (35.1-43.9); Red Blood Count 3.94 M/mm3 (4.2-5.4); White Blood Count 19.3 K/mm3 (4.4-11.0)
[2019-01-03] MEDS: oxyCODONE 5 MG Tablet 10 MG PO ×2 (06:54→11:25)
[2019-01-03 07:08] LABS: Anion Gap 10 (5-15); BUN 4 mg/dL (7-18); BUN/Creat Ratio 5.2 RATIO (10-20); Calcium,Total 8.3 mg/dL (8.5-10.1); Chloride 105 mmol/L (98-107); Creatinine, Serum 0.77 mg/dL (0.55-1.02); EST Glomerular Filtration Rate 91 mL/min (>60); Est Glom Filt Rate - Afr Amer 111 mL/min (>60); Estimated Creatinine Clearance 74.64 ml/min; Glucose 88 mg/dL (74-106); Potassium 3.8 mmol/L (3.5-5.1); Sodium Level 139 mmol/L (136-145)
[2019-01-03 10:06] VITALS: BP 93/55; PULSE 83; RESP 18; TEMP 37.4; O2SAT 97
[2019-01-03] MEDS: 0.9% NaCl Peripheral Flush Adult/Peds IV (10:16)
[2019-01-03] MEDS: levoFLOXacin IV 500 MG/100 ML BAG 100 MG IV (10:17)
[2019-01-03 10:38] VITALS: O2SAT 96
--- NOTE | 2019-01-03 11:40 | CASEMGMT ---
RN CM NOTE: Pt given list of local PCP's from [facility] website. Pt voices appreciation. Jorge AGUILAR RN CM
--- NOTE | 2019-01-03 11:59 | DCINST_ITS ---
- Discharge Diagnoses Current Active Problems: Current Active and Chronic Problems Pyelonephritis (Acute) Severe sepsis (Acute) Leukopenia (Acute) Likely secondary to Bactrim Thrombocytopenia (Acute) Tobacco dependence (Chronic) Migraines (Chronic) pt has self diagnosed herself Adverse drug reaction (Acute) Leukopenia and thrombocytopenia suspected to be secondary to Bactrim Hyponatremia (Acute) Hypokalemia (Acute) You will use the following diet at home:: No restrictions, Other - I recommend you takea probiotic while taking antibiotics or eat yogurt daily to prevent yeast infections and loose stools Your food should be the consistency of: Regular Your liquids should be the consistency of: Regular/Thin Discharge Activity: May not drive while taking narcotic pain medications. Return to work on:: 01/07/19 Call your doctor if you observe: Fever of 101 or Higher, Inability to urinate, - - Call your PCP if severe diarrhea ( > 5 stools a day), painful sores in the mouth, painful swallowing, rash or itching. Taking a probiotic such as Lactobacillus or Kefir can help with loose stools while taking antibiotics. Additional Instructions: You should list Bactrim/sulfa drugs as an allergy in the future because you should never take this medication again. Make sure to TAKE ALL of the antibiotics or the infection may come back. If you are taking control pills you should use additional protection for the next month because the antibiotics can cause the pill to be ineffective. Allergies/Adverse Reactions: Allergies sulfamethoxazole [From Bactrim] Allergy (Verified 01/01/19 08:52) Low neutrophils trimethoprim [From Bactrim] Allergy (Verified 01/01/19 08:52) Low neutrophils Medications to take at Discharge Amoxicillin 1,000 mg PO TID #42 tab 01/03/19 Oxycodone HCl/Acetaminophen [Percocet 5/325] 1 tab PO Q4H PRN PRN 7 Days #12 tab 01/03/19 The following prescriptions were given: Amoxicillin 1,000 mg PO TID #42 tab Prescription Printed Oxycodone HCl/Acetaminophen [Percocet 5/325] 1 tab PO Q4H PRN PRN 7 Days #12 tab PRN Reason: Pain Prescription Printed Primary Care Physician: Care Physician,No Primary [Primary Care Provider] - Please follow up with your Primary Care Physician in: 7-10 days Test Results: Test results from this visit will be discussed in further detail at your follow- up appointment, if applicable. Proposed Discharge Date: 01/03/19
--- NOTE | 2019-01-03 12:05 | PCM.DC.SUM ---
Discharge Date and Diagnosis Date of Admission: 12/31/18 Date of Discharge: 01/03/19 - Primary Discharge Diagnosis Active and Suspected Problems Pyelonephritis (Acute) Severe sepsis (Acute) secondary to suspected pyelonephritis due to enterococcus faecalis Adverse drug reaction (Acute) - Leukopenia and thrombocytopenia suspected to be secondary to Bactrim Acute renal failure-resolved Hypokalemia-resolved Hyponatremia-resolved Dehydration - Secondary Discharge Diagnosis Chronic Problems Tobacco dependence (Chronic) Migraines (Chronic) pt has self diagnosed herself Hospital Course and Treatment Imaging Results: Clinical Impression(s) from Imaging Studies Abdomen/Pelvis CT 12/31/18 15:20 IMPRESSION: No definite acute abnormality. Evaluation of the GI tract is limited without oral contrast. Electronically Signed: Lucho Nguyen MD at 17:06 EDT , Service support , Chest X-Ray 01/02/19 05:21 IMPRESSION: Mild pulmonary congestion. Differential considerations include acute exacerbation of reactive airway disease or COPD; a viral infection or mycoplasma pneumonitis. Electronically Signed: Lesia Ding MD at 6:24 EDT , Service support , Laboratory Results - last 24 hr 01/03/19 01/03/19 06:36 06:36 WBC 19.3 H RBC 3.94 L Hgb 13.5 Hct 38.7 MCV 98.2 MCH 34.3 H MCHC 34.9 RDW Std Deviation 49.6 H RDW Coeff of Deb 13.6 Plt Count 91 L MPV 10.2 Sodium 139 Potassium 3.8 Chloride 105 Carbon Dioxide 24.0 Anion Gap 10 BUN 4 L Creatinine 0.77 Estim Creat Clear Calc 74.64 Est GFR (MDRD) Af Amer 111 Est GFR (MDRD) Non-Af 91 BUN/Creatinine Ratio 5.2 L Glucose 88 Calcium 8.3 L Microbiology 01/02/19 13:15 Mucosa - Nasopharyngeal Respiratory Panel (PCR) - Final 12/31/18 14:35 Blood Culture (Wb) - Arm Right Blood Culture - Preliminary No growth in 48 hours. 12/31/18 10:10 Urine, Clean Catch Urine Culture - Final Mixed Gram Positive Organisms Dr. Chidi Arellano-infectious disease Dr. Michael Hannah-hematology Operations: None Procedures: None Summary of Care Provided: The patient is a 33 year old F with no significant past medical history other than tobacco dependence who presented to the emergency department at [facility] on 12/31/2018 complaining of burning with urination, urinary frequency, low back pain and suprapubic discomfort. She had recently been seen in an urgent care and was placed on Bactrim for suspected urinary tract infection. She had fevers to 103 degrees. Vital signs at presentation to the emergency room were temperature 98.9, pulse rate 125, blood pressure 119/70, respiratory rate 16 and she was 94 to 97% saturated on room air. CBC was remarkable for a white blood cell count of 1.9 and platelets of 88,000. BMP was remarkable for a low sodium at 132, low potassium at 3.1, BUN of 11 and a creatinine of 1.37. Creatinine on 12/28/2017 was 0.78. Lactic acid was 0.8. UA showed positive nitrites with 5-10 WBCs per high-power field, 5-10 squamous epithelial cells and +1 bacteria. Urine culture and blood cultures were sent. She was admitted to the hospital with a diagnosis of severe sepsis with acute renal failure likely secondary to acute pyelonephritis, and thrombocytopenia and leukopenia likely secondary to adverse reaction to Bactrim. She was started on Rocephin and intravenous fluids. DVT pharmacologic prophylaxis was held due to thrombocytopenia. CT scan of the abdomen and pelvis was ordered mild nephrolithiasis, hydronephrosis and perinephric stranding. The CT scan showed no definite acute abnormality. The left kidney and right kidney were normal. There were no definite stone seen. On 01/01/2019 the white blood cell count dropped to 1.4 and platelets were 67,000. She continued to have fevers. Dr. Hannah from hematology was consulted and felt that the leukopenia and thrombocytopenia were likely secondary to combined reaction to Bactrim and sepsis. Creatinine improved with hydration and on 01/01/2019 was 0.83. Sodium was 141 and the potassium was 4.0. she was started on Granix to stimulate WBC production. Levaquin was added to the Rocephin. On 01/02/19 the white blood cell count was 13.1. Hemoglobin was stable and the platelets were up to 71,000. She continued to have fevers and Dr. Arellano was consulted to participate in care. Dr. Arellano was able to obtain a report from [facility] lab and the urine culture was + for enterococcus. The urine culture at [facility] was negative with less than 1000 colonies of mixed contaminants. On 01/03/2019 we received a faxed copy of the enterococcal sensitivities and the bacteria was sensitive to amoxicillin. Temperature on the date of discharge was 98.6 prior to discharge. Vital signs were stable and she denied dysuria, urinary frequency, urinary hesitancy, suprapubic pain and back pain. She was discharged home on amoxicillin 1 g p.o. every 8 hours to complete 10 days of treatment. She will follow-up with her PCP in 7 to 10 days. She was advised to use an alternate method of control other than control pills for the next month as the control pills may not be effective with recent antibiotic. PHYSICAL EXAM: GENERAL: alert, oriented X 3, Cooperative, NAD ORAL: moist mucosa, no mucosal lesions NECK: No JVD, supple, trachea midline LUNGS: CTA, symmetric chest expansion HEART: RRR, Normal S1 and S2, no rub, no gallop ABDOMEN: soft, NT, ND, BS present, no guarding with palpation EXTREMITIES: no edema, no cyanosis, no calf tenderness SKIN: No rashes, no breakdown NEUROLOGIC: no focal neurologic deficits PSYCH: appropriate, normal affect, pleasant This note was generated with [employer] dictation software. It may contain incorrect words, spelling, and punctuation that were not noted in checking the note before signing. - Physical Exam Vital Signs Temp Pulse Resp BP Pulse Ox 99.4 F H 83 18 93/55 L 96 01/03/19 10:01/03/19 10:01/03/19 10:01/03/19 10:01/03/19 10:38 Oxygen Flow Rate (L/min) 2 Oxygen Delivery Method Room Air Weight: 145 lb 8.081 oz Body Mass Index (BMI) 26.7 Intake and Output for Last 24 Hours 01/01/19 01/02/19 01/03/19 23:59 23:59 23:59 Intake Total 4822 / 4822 1520 / 1920 1000 / 1000 Output Total 350 / 350 Balance 4472 / 4472 1520 / 1920 1000 / 1000 Microbiology Past 72 Hours 01/02/19 13:15 Respiratory Panel (PCR) - Final Mucosa - Nasopharyngeal 12/31/18 14:35 Blood Culture - Preliminary Blood Culture (Wb) - Arm Right No growth in 48 hours. 12/31/18 10:10 Urine Culture - Final Urine, Clean Catch Mixed Gram Positive Organisms Laboratory Tests Past 24 Hrs 12/31/18 01/01/19 01/03/19 10:40 05:29 06:36 WBC 19.3 H RBC 3.94 L Hgb 13.5 Hct 38.7 MCV 98.2 MCH 34.3 H MCHC 34.9 RDW Std Deviation 49.6 H RDW Coeff of Deb 13.6 Plt Count 91 L MPV 10.2 Differential Comment Diff Path Review Reviewed Reviewed Sodium Potassium Chloride Carbon Dioxide Anion Gap BUN Creatinine Estim Creat Clear Calc Est GFR (MDRD) Af Amer Est GFR (MDRD) Non-Af BUN/Creatinine Ratio Glucose Calcium 01/03/19 06:36 WBC RBC Hgb Hct MCV MCH MCHC RDW Std Deviation RDW Coeff of Deb Plt Count MPV Differential Comment Diff Path Review Sodium 139 Potassium 3.8 Chloride 105 Carbon Dioxide 24.0 Anion Gap 10 BUN 4 L Creatinine 0.77 Estim Creat Clear Calc 74.64 Est GFR (MDRD) Af Amer 111 Est GFR (MDRD) Non-Af 91 BUN/Creatinine Ratio 5.2 L Glucose 88 Calcium 8.3 L Discharge Activity: May not drive while taking narcotic pain medications. Return to work on:: 01/07/19 Call your doctor if you observe: Fever of 101 or Higher, Inability to urinate, - - Call your PCP if severe diarrhea ( > 5 stools a day), painful sores in the mouth, painful swallowing, rash or itching. Taking a probiotic such as Lactobacillus or Kefir can help with loose stools while taking antibiotics. Home Medications: Medications to take at Discharge Amoxicillin 1,000 mg PO TID #42 tab 01/03/19 Oxycodone HCl/Acetaminophen [Percocet 5/325] 1 tab PO Q4H PRN PRN 7 Days #12 tab 01/03/19 Following Prescrptions Were Given to Patient: Amoxicillin 1,000 mg PO TID #42 tab Prescription Printed Oxycodone HCl/Acetaminophen [Percocet 5/325] 1 tab PO Q4H PRN PRN 7 Days #12 tab PRN Reason: Pain Prescription Printed Primary Care Physician: Care Physician,No Primary [Primary Care Provider] - Please follow up with your Primary Care Physician in: 7-10 days Disposition: Home Minutes spent on discharge:: 30 Patient Condition:: Good Medical Necessity - Tobacco Use Smoking Status: Current every day smoker - 1 pack/day x 20 years Tobacco Use: Cigarettes Meaningful Use Info Meaningful Use Diagnoses (Choose all that apply): None applicable Code Visit Inpatient E&M: 27965 Disch Hosp
[2019-01-03 13:24] VITALS: BP 92/62; PULSE 78; RESP 16; TEMP 37; O2SAT 95
--- NOTE | 2019-01-03 18:06 | PN_ITS ---
Progress Note Late entry for 01/02/2019-computer was down Continued to have fevers with a T-max of 101.6. Vital signs are stable. Pulse ox is 95 to 97% on room air. All lab was personally reviewed. The white blood cell count is 13.1 today after starting Granix yesterday. Hemoglobin is stable and platelets are 71,000, up from 67,000 yesterday. Urine culture grew mixed gram-positive organisms, less than 1000 colonies. She does not know if her urine culture was done at [facility] on the date that she presented with urinary tract symptoms. She denies dysuria, urinary hesitancy or suprapubic pain today. PHYSICAL EXAM: GENERAL: alert, oriented X 3, Cooperative, NAD ORAL: moist mucosa, no mucosal lesions NECK: No JVD, supple, trachea midline LUNGS: CTA, symmetric chest expansion HEART: RRR, Normal S1 and S2, no rub, no gallop ABDOMEN: soft, NT, ND, BS present, no guarding with palpation EXTREMITIES: no edema, no cyanosis, no calf tenderness SKIN: No rashes, no breakdown NEUROLOGIC: no focal neurologic deficits PSYCH: appropriate, normal affect, pleasant 1. Severe sepsis secondary to UTI/ pyelonephritis 2. Leukopenia and thrombocytopenia secondary to adverse drug reaction to Bactrim 3. Tobacco dependence Will call [facility] to see if they have a urine culture prior to starting Bactrim Continue Rocephin and Levaquin Consult Dr. Arellano to participate in management Recheck BMP and CBC in the a.m. If the white blood cell count remains greater than 10,000 we will discontinue Granix at that time. Code Visit Inpatient E&M: 59362 Subs Hosp L2
== END 2019-01-03 13:25 | disposition home or self-care (01) | DRG 720 ==
LOC: ED 11:16 → PCU 13:01 → MS3 01-01 16:23
PROVIDERS: Admitting Provider Internal Medicine; Emergency Provider Emergency Medicine; Referring Provider Internal Medicine; Visit Provider Internal Medicine
DX: A41.9 Sepsis, unspecified organism (principal); N10 Acute pyelonephritis; B95.2 Enterococcus as the cause of diseases classified elsewhere; R65.20 Severe sepsis without septic shock; N17.9 Acute kidney failure, unspecified; D70.2 Other drug-induced agranulocytosis; D69.59 Other secondary thrombocytopenia; T36.8X5A Adverse effect of other systemic antibiotics, initial encounter; E87.6 Hypokalemia; E87.1 Hypo-osmolality and hyponatremia; E86.0 Dehydration; F17.210 Nicotine dependence, cigarettes, uncomplicated
CPT/HCPCS: 36415; 71045; 74176; 80048; 80053; 81001; 81025; 83605; 85025; 85027; 85610; 87040; 87086; 87088; 87633; 94762; 97802; 99284; 99406; J7030; A4216; J1447; J2405

== ENCOUNTER 2019-02-04 19:09 | Emergency (ER) | payer MEDICAID, SELFPAY ==
[2018-12-31 13:16] VITALS: BMI 26.7
[2019-02-04 19:09] VITALS: BP 133/81; PULSE 99; RESP 18; TEMP 36.8; O2SAT 98; BMI 25.6
--- NOTE | 2019-02-04 19:26 | ED.DCSUM_ITS ---
History of Present Illness Chief Complaint: Bite Informant: Patient Onset: Today - Bit by cat multiple times this morning Context: Sudden Onset Quality: Swelling and pain Location: Upper extremity bilateral Current Severity: Mild Maximum Severity: Moderate Worsened by: Touching volar surface left long finger Relieved by: Nothing Associated Symptoms: Pain and swelling Narrative: Patient States that her because dog entered area. She has multiple bite to the right and left hand as well as right arm. There are scratches noted right and left forearm. She has not noted any drainage. Her concern is swelling of the left long finger. She was admitted 3 weeks ago for sepsis. She just completed a course of antibiotics. She is on no immunosuppressive meds. She states she is allergic to sulfa. She denies fever or chills. She denies nausea or vomiting. She denies loss of use of her fingers/hands. Prior similar symptoms: No Recent Illness/Hospitalization: Yes - Past Medical History (1) Pyelonephritis Status: Acute (2) Thrombocytopenia Status: Acute (3) Acute renal failure Status: Resolved Past Medical History - Allergies and Home Meds Allergies/Adverse Reactions: Allergies sulfamethoxazole [From Bactrim] Allergy (Verified 01/01/19 08:52) Low neutrophils trimethoprim [From Bactrim] Allergy (Verified 01/01/19 08:52) Low neutrophils Primary Care Physician: Care Physician,No Primary [Primary Care Provider] - Prior records reviewed: Yes Surgical History: noncontributory Lives: With Family Smoking Status: Current every day smoker - 1 pack/day x 20 years Alcohol: Rare Drugs: None - Family History Maternal Family History: Reports: No pertinent history, - - No family history nephrolithiasis Paternal Family History: Reports: No pertinent history, - - No family history of kidney stones Review of Systems General: Denies: Chills, Fever, Malaise, Sweats Cardiovascular: Denies: Chest pain, Palpitations Respiratory: Denies: Dyspnea, Dyspnea on exertion Gastrointestinal: Denies: Nausea, Vomiting, Diarrhea Musculoskeletal: Reports: Swelling - Left long finger. Denies: Myalgias, Arthralgias, Neck pain, Back pain, Extremity Pain - Right and left hand Skin: Reports: Wounds - Bite katz right and left upper extremity. Denies: Rash, Abscess, Abrasions Endocrine: Denies: Polyuria, Polydipsia Hematologic: Denies: Easy bruising, Easy bleeding Allergy: Denies: Uticaria, Swelling of the mouth, Swelling of the tongue Physical Exam Vital Signs/Narrative: Vital Signs Temp Pulse Resp BP Pulse Ox 02/04/19 19:09 98.2 F 99 18 133/81 H 98 Inital Vital Signs reviewed: Yes General: Well nourished, Well developed, No Acute Distress Head: Normocephalic, Atraumatic Eyes: Perrl, EOMI ENT: Moist mucous membranes, No rhinorrhea Neck: Supple, Nontender Cardiovascular: Regular rate, Regular rhythm, No murmurs Respiratory: No distress, CTA bilaterally, Chest nontender Back: Nontender, Normal Inspection Extremities: No edema, Tenderness Skin: Normal color, No rash, Trauma - There are 3 puncture wounds noted left long finger. There is one on the radial and ulnar side of the left long finger between the DIP and PIP joint. There is a puncture wound radial side proximal to the PIP joint. There is swelling of that digit. There is no pain to palpation over the flexor tendon. There is no pain with forced extension of the finger. There is a puncture wound crease of the MCP joint volar surface left index finger. There is no pain the patient over the flexor tendons. There is no pain with forced extension of the digit. There is no swelling noted. There is no erythema with any of the wounds nor is or lymphangitis. There is no epitrochlear or axillary lymphadenopathy. There are scratches noted forearm. There is a possible bite radial/volar proximal right arm. Neurological: Alert, Oriented x3, Cranial nerves II-XII grossly intact, Normal Strength, Normal Sensation Psychological: Normal affect, Normal Mood Diagnostic/Tx/Re-eval - Medical Decision Making Patient has multiple bite katz from cat scratch. Since she does not have all ergy to penicillin she was treated with Augmentin. She received first dose in the emergency department. She was instructed that she cannot follow-up with her primary care physician in 48 hours to return to the emergency department for evaluation. ED Disposition - Plan for ED Patient: Disposition: Home or Assisted Living Diagnosis: Cat bite of finger, Cat bite of left hand, Cat scratch of left forearm, Cat bite of right upper arm Instructions: Cat Bite Prescriptions: Amox/Clavulanate Tablet [Augmentin Tablet] 875 mg PO Q12H #14 tab Prescription Printed Referrals: Care Physician,No Primary [Primary Care Provider] - Additional Instructions: The name of your primary care provider is on your insurance card provided to you by care source. If you are not able to be seen by that provider in 48 hours please return to the emergency department for reevaluation. In spite of treatment with antibiotics there is still a significant chance of developing infection. If you note colored drainage. Have pain with movement of any of your fingers or red streak extending into your hand or forearm return to the emergency department immediately. Take antibiotics until gone
[2019-02-04 19:27] VITALS: BP 132/83; PULSE 82; RESP 16; TEMP 36.7; O2SAT 99
[2019-02-04] MEDS: Amox/Clavulanate 875 MG Tablet PO (19:40)
[2019-02-04 19:43] VITALS: BP 132/83; PULSE 82; RESP 16; O2SAT 99
== END 2019-02-04 19:44 | disposition home or self-care (01) ==
PROVIDERS: Emergency Provider Emergency Medicine
DX: S61.452A Open bite of left hand, initial encounter (principal); W55.01XA Bitten by cat, initial encounter; S61.451A Open bite of right hand, initial encounter; S41.151A Open bite of right upper arm, initial encounter; S50.812A Abrasion of left forearm, initial encounter; S50.811A Abrasion of right forearm, initial encounter
CPT/HCPCS: 99282

== ENCOUNTER → 2019-05-23 13:16 | Outpatient (CLI) | payer MEDICAID, SELFPAY | PROVIDERS: Referring Provider Obstetrics & Gynecology; Visit Provider Obstetrics & Gynecology | DX: Z12.4 Encounter for screening for malignant neoplasm of cervix (principal); Z11.3 Encounter for screening for infections with a predominantly sexual mode of transmission ==

== ENCOUNTER → 2019-07-03 | Outpatient (CLI) | payer MEDICAID, SELFPAY ==
--- NOTE | 2019-07-03 | IMM_PTH ---
PATIENT: ALMA DELIA HAYNES LOC: [facility] U#:[id number] AGE/SX: 33/F ROOM: RE07/03/[address]: Dr. Margie Nolen MD : 1985 BED: DIS: 07/03/2019 SPEC #: [id number] RECD: 07/05/19 13:10 STATUS: AVELINO REQ #: [id number] AARON: 07/03/19 00:[address]: Margie Baker DEPT: IMMUNOHISTOCHEMISTRY RECD BY: Shawna Novak ENTERED: 07/05/19 13:11 SP TYPE: IMMUNO OTHR DR: No Primary Care Phys Tissues: C - Uterine cervix, NOS Procedures: p16 (initial) KI-67 (add) PHYSICIAN & INSTITUTION [place] [id number] SPECIMEN INFORMATION: Tissue Source: C - Cervical biopsy at 1 o'clock Clinical Info: LGSIL, positive HR/HPV Specimen Number: [id number] CPT code: 57415, 87140 METHODOLOGY: Deparaffinized sections of prefer/formalin-fixed tissue or PAP/DQ stained slides are incubated with monoclonal/polyclonal antibodies/oligonucleotide probes. Localization is made via biotin free immunoperoxidase method. Appropriate controls are performed and reacted as expected. Results on target cell population are indicated in the following table: RESULTS: ANTIBODY / CLONE RESULT Block C P16 (E6H4) positive, focal, patchy Ki-67 (30-9) negative These tests were developed and their performance characteristics determined by [facility]. They may not have been cleared or approved by the U.S. Food and Drug Administration. The FDA has determined that such clearance or approval is not necessary. The above immunohistochemical/dualISH markers are ordered and reviewed by the Pathologist. INTERPRETATION: C. Cervix at 1 o'clock, biopsy: Consistent with focal HPV change/KIM I. AM:nirmal 07/08/19
--- NOTE | 2019-07-03 10:20 | CER_PTH ---
PATIENT: ALMA DELIA HAYNES LOC: [facility] U#:[id number] AGE/SX: 33/F ROOM: RE07/03/[address]: Dr. Margie Nolen MD : 1985 BED: DIS: 07/03/2019 SPEC #: [id number] RECD: 07/03/19 15:56 STATUS: AVELINO RENiharika #: [id number] AARON: 07/03/19 10:[address]: Margie Baker DEPT: SURGICAL PATHOLOGY RECD BY: Raji Maurer ENTERED: 07/04/19 08:13 SP TYPE: CERV OTHR DR: No Primary Care Phys Tissues: A - Uterine cervix, NOS B - Uterine cervix, NOS C - Uterine cervix, NOS Procedures: Surgery Specimen Level IV HEADER OPERATION: Colposcopy PRE-OP DIAGNOSIS: LGSIL, positive HR/HPV TISSUE SUBMITTED: A - ECC, B - Cervical biopsy 10 o'clock, C - Cervical biopsy 1 o'clock MICROSCOPIC DIAGNOSIS A. Endocervix, curettings: Fragments of endometrium with marked chronic endometritis. Scant strips of benign superficial endocervix. B. Cervix at 10 o'clock, biopsy: Rare fragments of endocervix with mild chronic inflammation. C. Cervix at 1 o'clock, biopsy: Focal HPV change/KIM I (LGSIL). Squamous metaplasia and chronic inflammation. See comment. AM:nirmal 07/05/19 COMMENT C. Results from immunohistochemistry ([id number]) for surrogate HPV marker (p16) will be reported separately. Reference is made to the patient's previous cervical biopsy from 2014 ([id number]) in which mild and focal moderate squamous dysplasia was identified. Case has been reviewed in consultation with Dr. Hernandez who concurs with the above diagnosis. IDC:[id number] MICROSCOPIC DESCRIPTION Slides are reviewed. GROSS DESCRIPTION A - Received in fixative is one container labeled with the patient's name and designated ECC. The specimen consists of multiple fragments of hemorrhagic mucoid tissue that in aggregate measure 3 x 2.5 x 0.1 cm. The specimen is totally submitted in one cassette. B - Received in fixative is one container labeled with the patient's name and designated cervical biopsy 10 o'clock. The specimen consists of multiple irregular fragments of garcia mucoid tissue that in aggregate measure 1 x 0.1 x 0.1 cm. The specimen is totally submitted in one cassette. C - Received in fixative is one container labeled with the patient's name and designated cervical biopsy 1 o'clock. The specimen consists of one irregular fragment of light garcia soft tissue that measures 0.3 x 0.2 x 0.1 cm. The specimen is totally submitted in one cassette. / SJ:rg 07/04/19 TC:3 CPT: 61410 x3
[2019-07-03 17:19] LABS: Probe Check PASS; Sample Adequacy Control PASS; Specimen Processing Control PASS; Trichomonas Vag DNA by PCR Negative (Negative)
== END | disposition home or self-care (01) ==
LOC: LABSPEC 14:23
PROVIDERS: Visit Provider Obstetrics & Gynecology
DX: A59.01 Trichomonal vulvovaginitis (principal); R87.612 Low grade squamous intraepithelial lesion on cytologic smear of cervix (LGSIL)
CPT/HCPCS: 87661; 88305; 88341; 88342

== ENCOUNTER → 2019-11-13 | Outpatient (CLI) | payer MEDICAID, SELFPAY ==
[2019-07-11 10:26] VITALS: BMI 25.6
--- OUTSIDE RECORDS SUMMARY | 2020-03-22 11:24 | XMS RPT_ITS | CCD ---
:1985 External Reference #:[id number] Author Organization [facility] Care Team Providers Name Role Phone Unavailable Unavailable Unavailable Results Result Name Value Range Unit Interpretation Flag Date Location tsh on 2019-05-03 TSH Qn 0.502 0.270-4.200 uU/mL Normal 05-03-2019 [facility] ([id number]) Comment: Result Comment: If the patie nt is , TSH reference range varies by gestational period: First Trimester (weeks 9-12) : 0.180-2.990 mcIU/mL Second Trimester: 0.110-3.98 0 mcIU/mL Third Trimester: 0.480-4.710 mcIU/mL Salvatore Dorsey et al. A Practica l Approach for the Verifications and Determination of Site- and Trimester-Specific Reference Intervals for Thyroid Function tests in . Thyroid, 2019:29:3:412-420. Al agueda Bryant, et al. 2017 Guide lines of the [place] [employer] Association for the Diagnosis and Management of Thyroid Disease during and the . Thyroid, 2017:27:3:315-389. Performed By: #### TSH, FT4, T3, MICRO, TG ####[facility] [address] [place], [place] [phone] tpo antibody on 201 02-13-29 TPO Antibody 2.0 <5.6 IU/mL Normal 05-03-2019 [facility] ([id number]) Comment: Performed By: #### TSH, FT4, T3, MICRO, TG ####[facility] [address] [place], [place] [phone] thyroglobulin on 20 23-04-29 TG Antibody Screen 3.2 <14.4 IU/mL Normal 05-03-2019 [facility] ([id number]) Comment: Performed By: #### TSH, FT4, T3, MICRO, TG ####[facility] [place], [place] [phone] Thyroglobulin 13.3 1.6-59.9 ng/mL Normal 05-03-2019 [facility] ([id number]) Comment: Result Comment: Test analyze d by the Siemens Immulite method Performed By: #### TSH, FT4, T3, MICRO, TG ####[facility] [place] [phone] t3 on 2019-05-03 T3 182 79-165 ng/dL High 05-03-2019 [facility] ([id number]) Comment: Performed By: #### TSH, FT4, T3, MICRO, TG ####[place] [address] [place], [place] [phone] free t4 on Free T4 [Mass/Vol] 1.3 0.9-1.7 ng/dL Normal 05-03-2019 [facility] ([id number]) Comment: Performed By: #### TSH, FT4, T3, MICRO, TG ####[place] [address] [place] [phone] urine culture on 21-12-26 Bacteria Sp. Request/Comment: - Specimen received in preservative Critically 12-29-2018 [place] identified Cx Culture Result - >=100,000 C FU/ml Enterococcus faecalis --> ABNORMAL ALERT Cephalosporins, clindamycin, and TMP-SMX are not effective for the treatment of enterococcal infections. --> ABNORMAL abnormal Clinic Nom (U) ALERT <10,000 CFU/ml Normal urogenital marques [place] ORGANISM: Enterococcus faecalis ([id number]) METHOD: Minimum inhibitory concentration(Vitek) Antibiotic Interp MARQUIS Status Ampicillin SUSCEPTIBLE <=2 F Nitrofurantoin SUSCEPTIBLE <=16 F Vancomycin SUSCEPTIBLE 1 F Comment: Performed By: #### URCUL ### #[facility], [place] [phone] progress on 2018-12 PROGRESS HNO ID: [id number] Normal 12-29-2018 [facility] Author: Liana Guthrie [place] ([id number]) Service: ? Author Type: Nurse Practitioner Type: Progress Notes Filed: 12/29/2018 3:57 PM Note Text: Subjective HPI Alma Delia Dow is a 33 year old female who presents with fever and dysuria for the last 2-3 days. Patient also reports some mid back pain that has been worse the last 24 hours. Has taken ibuprofen a nd AZO as needed. She has felt feverish, but no nausea, vomiting, or d iaphoresis. Normal appetite and energy level. Review of Systems Constitutional: Positive for chills and fever. Negative for diaphoresis. Respiratory: Negative for shortness of breath. Cardiovascular: Negative for chest pain. Genitourinary: Positive for dysuria. Negative for flank pain , frequency, hematuria and urgency. Musculoskeletal: Negative for back pain, joint pain and myal gias. Neurological: Negative for dizziness, seizures, loss of cons ciousness and weakness. BP 102/78 Pulse 86 Temp (!) 38.8 ?C (101.8 ?F) (Right Ty mpanic) Resp 14 Wt 61.2 kg (135 lb) BMI 26.37 kg/m? PAST MEDICAL HISTORY Diagnosis Date - NEGATIVE MEDICAL HISTORY PAST SURGICAL HISTORY Procedure Laterality Date - APPENDECTOMY age 12 - TONSILLECTOMY AND ADENOIDECTOMY HX age 6 ALLERGIES Patient has no known allergies. MEDICATIONS buPROPion XL (WELLBUTRIN XL) 300 mg 24 hr tablet Take 1 tabl et by mouth once daily. Ethinyl Estradiol-Norelgestrom (ORTHO EVRA) 150-35 mcg/24 hr Apply 1 Patch as directed once each week. sulfamethoxazole-trimethoprim (BACTRIM DS,SEPTRA DS) 800-160 mg per tablet Take 1 tablet by mouth twice daily for 7 days. SUMAtriptan (IMITREX) 25 mg tablet Take 1 tablet by mouth as needed. May repeat dose after 2 hours if ineffective albuterol HFA (VENTOLIN HFA) 90 mcg/actuation inhaler Inhale 2 Puffs as instructed every 4 hours as needed for Wheezing/Shortness of Breath. Czkefawrphsnhgz-Htiydomcd-VV (BROMFED DM) 2-30-10 mg/5 mL sy rup Take 5-10 ml po q6h prn pseudoephedrine (SUDAFED) 30 mg tablet Take 1 tablet by mout h every 4 hours as needed. fluticasone (FLONASE) 50 mcg/actuation nasal spray Use 1 Spr ay in each nostril once daily. FAMILY HISTORY Problem Relation Age of Onset - Diabetes Father type 2 - other (parkinsons) Maternal Grandmother Social History Tobacco Use - Smoking status: Current Every Day Smoker Packs/day: 0.50 Start date: 06/25/2003 - Smokeless tobacco: Never Used Substance Use Topics - Alcohol use: Yes Comment: rare - Drug use: No Objective Physical Exam Constitutional: She is oriented to person, place, and time a nd well-developed, well-nourished, and in no distress. She appe ars to not be writhing in pain and not dehydrated. She does not have a sic kly appearance. HENT: Head: Normocephalic and atraumatic. Eyes: Conjunctivae are normal. Cardiovascular: Normal rate, regular rhythm, normal heart so unds and intact distal pulses. Exam reveals no gallop and no friction rub. No murmur heard. Pulmonary/Chest: Effort normal and breath sounds normal. No respiratory distress. She has no wheezes. She has no rales. She exhibits no tenderness. Abdominal: Soft. Bowel sounds are normal. She exhibits no di stension and no mass. There is no tenderness. There is no rebound, no gua rding and no CVA tenderness. Musculoskeletal: She exhibits no edema. Lymphadenopathy: She has no cervical adenopathy. Neurological: She is alert and oriented to person, place, an d time. Gait normal. Skin: Skin is warm and dry. She is not diaphoretic. Psychiatric: Mood, memory, affect and judgment normal. ASSESSMENT/PLAN: 1. Dysuria - ICD9: 788.1, ICD10: R30.0 (primary diagnosis) Acute - no acute abdomen on exam, no CVA tenderness with percussio n - urine result suspected to be skewed due to AZO - concern of fever with inaccurate urine result, discussed t his with patient - red flag symptoms reviewed- instructed to go to ED immedia tely if symptoms do not improve in the next 8-12 hours or if worse b efore that time - Send urine for culture - Patient education for prevention given - URINE CULTURE - SULFAMETHOXAZOLE 800 MG-TRIMETHOPRIM 160 MG TABLET 2. Acute midline low back pain without sciatica - ICD9: 724. 2, ICD10: M54.5 - 2/2 to urinary symptoms suspected - Bedrest for 2-3 days - Warm moist heat for 20 min three times a day - NSAIDS All of the above discussed with the patient in detail. [place]y wells is in agreement with the above plan. Treatment and plan of care di scussed including course of treatment, possible medication side effe cts, and what to watch for in regards to worsening signs and symptoms. All questions addressed. FIORELLA Lincoln on 2018-12-29 CNOV Office Visit (UCWSTR) Normal 12-30-19 [place] ALMA DELIA Hudson ([id number]) 1985 [facility] Date Time Provider Department ([id number]) 12/29/18 3:00 PM LIANA GUTHRIE [facility] During your visit today, we recorded the following informati on about you: Temperature Pulse Respiration Blood pressure 101.8 degrees 86/minute 14/minute 102/78 Weight 61.2 kg Liana Guthrie APRN.CNP 12/29/2018 3:57 PM Signed Subjective HPI Alma Delia Wyman Paloma is a 33 year old female who pr esents with fever and dysuria for the last 2-3 days. Patient also reports some mid b ack pain that has been worse the last 24 hours. Has taken ibuprofen and AZO a s needed. She has felt feverish, but no nausea, vomiting, or diaphoresi s. Normal appetite and energy level. Review of Systems Constitutional: Positive for chills and fever. Negative for diaphoresis. Respiratory: Negative for shortness of breath. Cardiovascular: Negative for chest pain. Genitourinary: Positive for dysuria. Negative for flank pain , frequency, hematuria and urgency. Musculoskeletal: Negative for back pain, joint pain and myal gias. Neurological: Negative for dizziness, seizures, loss of cons ciousness and weakness. BP 102/78 Pulse 86 Temp (!) 38.8 ?C (101.8 ?F) (Right Ty mpanic) Resp 14 Wt 61.2 kg (135 lb) BMI 26.37 kg/m? PAST MEDICAL HISTORY Diagnosis Date - NEGATIVE MEDICAL HISTORY PAST SURGICAL HISTORY Procedure Laterality Date - APPENDECTOMY age 12 - TONSILLECTOMY AND ADENOIDECTOMY HX age 6 ALLERGIES Patient has no known allergies. MEDICATIONS buPROPion XL (WELLBUTRIN XL) 300 mg 24 hr tablet Take 1 tablet by mouth once daily. Ethinyl Estradiol-Norelgestrom (ORTHO EVRA) 150- 35 mcg/24 hr Apply 1 Patch as directed once each week. sulfamethoxazole-trimethopri m (BACTRIM DS,SEPTRA DS) 800-160 mg per tablet Take 1 tablet by mouth twice daily for 7 days. SUMAtriptan (IMITREX) 25 mg tablet Take 1 tablet by mouth as needed. May repeat dose after 2 hours if ineffective albuterol HFA (VENTOLIN HFA) 90 mcg/actuation inhaler Inhale 2 Puffs as instructed every 4 hours as needed for Wheezing/Shortness of Breath. Fenfnbekshuwzgh-Hlmjktwro-OV (BROMFED DM) 2-30-10 mg/5 mL syrup Take 5-10 ml po q6h prn pseudoephedrine (SUDAFED) 30 mg tablet T hawk 1 tablet by mouth every 4 hours as needed. fluticasone (FLONASE) 50 mcg/actuation n wade spray Use 1 [place] in each nostril once daily. FAMILY HISTORY Problem Relation Age of Onset - Diabetes Father type 2 - other (parkinsons) Maternal Grandmother Social History Tobacco Use - Smoking status: Current Every Day Smoker Packs/day: 0.50 Start date: 06/25/2003 - Smokeless tobacco: Never Used Substance Use Topics - Alcohol use: Yes Comment: rare - Drug use: No Objective Physical Exam Constitutional: She is oriented to perso n, place, and time and well-developed, well-nourished, and in no distress. She appears to not be writhing in pain and not dehydrated. She does not have a sickly appearance. HENT: Head: Normocephalic and atraumatic. Eyes: Conjunctivae are normal. Cardiovascular: Normal rate, regular rhythm, normal heart sounds and intact distal pulses. Exam reveals no gallop and no friction rub. No murmur heard. Pulmonary/Chest: Effort normal and breath sounds normal. No respiratory distress. She has no wheezes. She has no rales. She exhibi ts no tenderness. Abdominal: Soft. Bowel sounds are normal. She exhibits no distension and no mass. There is no tenderness. There is no rebound, no guardi ng and no CVA tenderness. Musculoskeletal: She exhibits no edema. Lymphadenopathy: She has no cervical adenopathy. Neurological: She is alert and oriented to person, place, an d time. Gait normal. Skin: Skin is warm and dry. She is not diaphoretic. Psychiatric: Mood, memory, affect and judgment normal. ASSESSMENT/PLAN: 1. Dysuria - ICD9: 788.1, ICD10: R30.0 (primary diagnosis) Acute - no acute abdomen on exam, no CVA tenderness with percussio n - urine result suspected to be skewed due to AZO - concern of fever with inaccurate urine result, discu ssed this with patient - red flag symptoms reviewed - instructed to go to ED immediately if symptoms do not improve in the next 8-12 hours or if worse before that t citlali - Send urine for culture - Patient education for prevention given - URINE CULTURE - SULFAMETHOXAZOLE 800 MG-TRIMETHOPRIM 160 MG TABLET 2. Acute midline low back pain without sciatica - ICD9: 72 4.2, ICD10: M54.5 - 2/2 to urinary symptoms suspected - Bedrest for 2-3 days - Warm moist heat for 20 min three times a day - NSAIDS All of the above discussed with the celia ent in detail. Patient is in agreement with the above plan. Treatment and plan of care discussed including course of treatment, possible medication side effects, and what to watch for in regards to worsening signs and symptoms. All questions addressed. Liana Guthrie, CRISTINO.ACCOUNT RESOLUTION SPECIALIST Referring Provider: SELF [[id number]] Allergies As of Date: 12/29/2018 (No Known Allergies) Date Reviewed: 12/29/2018 Reviewed by: Liana Guthrie - Fully Assessed Reason for Visit: possible kidney infection [Other] Primary Visit Diagnosis:Dysuria [R30.0] Other Visit Diagnosis:Acute midline low back pain without sc iatica [M54.5] Order(s):UA DIP, URINE (POC) [[id number]] Order #: [id number] ec. #:[id number] URINE CULTURE [SQURCUL] Order #: [id number] sulfamethoxazole-trimethoprim (BACTRIM DS,SEPTRA DS) 800-160 mg per tabletTake 1 tablet by mouth twice daily for 7 days.Disp: 14 tabletRfl: 0 Prescriptions as of 12/29/2018 Sig: BUPROPION XL 300 MG 24 HR TAB Take 1 tablet by mouth once d* NORELGESTROMIN 150 MCG-E.ESTR* Apply 1 Patch as directed onc * SULFAMETHOXAZOLE 800 MG-TRIME* Take 1 tablet by mouth twice * SUMATRIPTAN 25 MG TABLET Take 1 tablet by mouth as nee* ALBUTEROL SULFATE HFA 90 MCG/* Inhale 2 Puffs as instructed * Patient not taking: Reported on 09/11/2018 BROMPHENIRAMINE-PSEUDOEPHEDRI* Take 5-10 ml po q6h prn Patient not taking: Reported on 09/11/2018 PSEUDOEPHEDRINE 30 MG TABLET Take 1 tablet by mouth every * Patient not taking: Reported on 11/23/2017 FLUTICASONE PROPIONATE 50 MCG* Use 1 [place] in each nostril o * Problem List As Of Date 12/29/2018 Noted Resolved Tobacco dependence [F17.200] INVALID FOR* Prescriptions ordered this encounter Disp Refills Start End SULFAMETHOXAZOLE 800 MG-TRIMETHOPRIM* 14 t* 0 12/29/201808/2018 Route: ORAL Sig: Take 1 tablet by mouth twice daily for 7 days. Encounter Status:Closed by NICOLAS GREGG.LIANA BAILEY on 12/29 us thyroid/parathyroid on 2018-09-25 US THYROID/PARATHYROID * * *Final Report* * * Jay Jay spencer 09-25-2018 [place] DATE OF EXAM: Sep 25 2018 9:49AM Clinic WRU [id number] - US THYROID/PARATHYROID / [place] PROCEDURE REASON: multiple diagnoses ([id number]) * * * * Physician Interpretation * * * * ULTRASOUND OF THE THYROID GLAND HISTORY: Hoarse voice quality Neck fullness TECHNIQUE: Ultrasound of the thyroid gland. Grayscale and co gracie Doppler images. Images were obtained and stored in a permanent archi ve. COMPARISON: none RESULT: Thyroid gland is normal size. The right thyroid lobe measures 5.3 x 1.6 x 1.5 cm. The left thyroid lobe measures 4.9 x 1 x 1.8 cm. The thyroid isthmus measures 2 mm in thickness. Parenchyma: The parenchyma is homogeneous. Right-sided nodules: none. Left-sided nodules: none. - IMPRESSION: No abnormality identified. Store Protection Specialist: PSCMaximino Transcribe Date/Time: Sep 25 2018 1:13P Dictated by : COLIN CALLOWAY MD This examination was interpreted and the report reviewed and electronically signed by: COLIN CALLOWAY MD on Sep 25 2018 1:14PM EST [id number] progress on 2018-09 PROGRESS HNO ID: [id number] Normal 09-25-2018 [facility] Author: Sharon Carrillo Rdms [place] ([id number]) Service: ? Author Type: ? Type: Progress Notes Filed: 09/25/2018 10:00 AM Note Text: Radiology Service Progress Note PATIENT NAME: Alma Delia Dow DATE OF SERVICE: September 25, 2018 TIME: 9:59 AM PATIENT IDENTITY VERIFICATION COMPLETED USING TWO (2) METHOD S: Patient confirmed name verbally and Date of . PATIENT GENDER DATA: Female. status: status: NO. PATIENT RELEVANT IMPLANT DATA REVIEWED: Not Applicable RADIOLOGY DEPARTMENT: Ultrasound PERIPHERAL IV DATA: Not applicable SIGNED BY: Sharon Carr[address] Rdms September 25, 2018 9:59 AM vitamin d 25 hydroxy on 2018-09-11 Vitamin D 25 Hydroxy 31.4 31.0-80.0 ng/mL Normal 9 [facility] ([id number]) Comment: Result Comment: Classificati on of 25 [place] Vitamin D status: Insufficiency/Moderate Defic iency: < or = 30 ng/mL Sufficiency/Optimal Levels: 31 to 80 ng/mL Toxicity: > 100 ng/mL Test performed by chemilumin escent immunoassay. Performed By: #### CBC, TSH, WSR, VITD, FT4, T3, B12, ANAIFS #### [facility] [address] [place], [place] [phone] vitamin b12 on 2018 Cobalamin (Vitamin B12) 797 237-4748 pg/mL Normal 2018 [facility] [Mass/Vol] [place] ([id number]) Comment: Performed By: #### CBC, TSH, WSR, VITD, FT4, T3, B12, ANAIFS ####[facility] [address] [place], [place] [phone] tsh on 2018-09-11 TSH Qn 0.616 0.400-5.500 uU/mL Normal 09-11-2018 [facility] ([id number]) Comment: Result Comment: If the patie nt is , TSH reference range varies by gestational period: First Trimester 0.100-2.500 uU/mL Second Trimester 0.200-3.000 uU/mL Third Trimester 0.300-3.000 uU/mL References: 1. Cardoso, Kristin rivers M, Cody EK, et al. Management of Thyroid Dysfunction during and : An Endocrine Society Clinical Practice Guideline. J Clin Endocrinol Metab, 2012:97:3366-5443. 2. Jez BRUNO. Overview of thyroid disease in . UpToDate. 2016. Accessed on November 20, 2015. Performed By: #### CBC, TSH, WSR, VITD, FT4, T3, B12, ANAIFS #### [facility] [address] [place], [place] [address] t3 on 2018-09-11 T3 175 79-165 ng/dL High 09-11-2018 [facility] ([id number]) Comment: Performed By: #### CBC, TSH, WSR, VITD, FT4, T3, B12, ANAIFS ####[facility] [address] [place], [place] [phone] sed rate westergren on 2018-09-11 Sed Rate Westergren 5 0-20 mm/hr Normal 09-11-2018 [facility] ([id number]) Comment: Performed By: #### CBC, TSH, WSR, VITD, FT4, T3, B12, ANAIFS #### [facility] [address] [place], [place] [address] progress on 2018-09 PROGRESS HNO ID: [id number] Normal 09-11-2018 [facility] Author: Ward (Larry Operator) Al [place] ([id number]) Service: ? Author Type: Nurse Practitioner Type: Progress Notes Filed: 09/11/2018 10:24 AM Note Text: HPI/CC: Alma Delia Dow is a 32 year old female who presen for [facility] adult [facility]. New concerns today include Thyroid Thyroid concerns: ongoing for the last ~6 years. 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 States she has been borderline. Lately sh wes has been extremely fatigued- sleeps 7-8 hours a night, complains of c hange in voice quality since being sick over ~3 months ago, gaining weight despite exercise and diet- up almost 10 lbs since May. Associat ed symptoms include dry eyes and skin, hot and cold intolerances, sweati ng and swelling and numbness/tingling of the hands and feet intermi ttently. Exercises regularly with Walking squats, ab roller and push ups. Eats a lot of veggies. Works 2 jobs. Smoker 1/2 ppd. Interested in quitting. Complains of chronic headaches. Occurring nearly daily, star ting gradually. Located at neck, temporal and occipital lobe. Exa cerbated by light and sound. Better with rest and dark room. Occasional nausea. No hx of migraines. Treated with Tylenol and ibuprofen with limite d relief. Drinks no/minimal caffeine and ETOH. No recent head injury o r trauma. REVIEW OF SYSTEMS: GENERAL:night sweats, gained ~10lbs since May DERMATOLOGIC: Denies any new skin conditions, rashes or quiroz ging moles. EYES: Denies recent visual changes. and Last eye exam was 2018 ENT: Denies hearing loss or tinnitus, last dental exam 6-8 m onths ago RESPIRATORY: Positive for cough. CARDIOVASCULAR: Denies any chest pain with exertion or at re st, palpitations, syncope BREASTS: Denies any breast lumps, tenderness, dimpling, skin changes, or nipple discharge. GASTROINTESTINAL: Denies any nausea, vomiting, abdominal george n, heartburn, changes in bowel habit, Denies any rectal bleeding. GENITOURINARY: Denies any urinary frequency, urgency, incont inence, dysuria. Denies vaginal odor, discharge or lesions. Denies i rregular vaginal bleeding or spotting. BSE? 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 HISTORIES PAST MEDICAL HISTORY Diagnosis Date - NEGATIVE MEDICAL HISTORY PAST SURGICAL HISTORY Procedure Laterality Date - APPENDECTOMY age 12 - TONSILLECTOMY AND ADENOIDECTOMY HX age 6 FAMILY HISTORY Problem Relation Age of Onset - Diabetes Father type 2 - other (parkinsons) Maternal Grandmother Social History Socioeconomic History Marital status: Single Spouse name: Not on file Number of children: Not on file Years of education: Not on file Highest education level: Not on file Social Needs Financial resource strain: Not on file Food insecurity - worry: Not on file Food insecurity - inability: Not on file Transportation needs - medical: Not on file Transportation needs - non-medical: Not on file Occupational History Not on file Tobacco Use Smoking status: Current Every Day Smoker Packs/day: 0.50 Start date: 06/25/2003 Smokeless tobacco: Never Used Substance and Sexual Activity Alcohol use: Yes Comment: rare Drug use: No Sexual activity: Yes Partners: Male control/protection: Other Comment: OrthoEva Patch Other Topics Concerns: Not on file Social History Narrative Engaged, has 3 children with 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 Exercises with weights at home, regularly. Healthier diet most of the time. Current Outpatient Medications on File Prior to Visit: albuterol HFA (VENTOLIN HFA) 90 mcg/actuation inhaler Inhale 2 Puffs as instructed every 4 hours as needed for Wheezing/Shortness of Breath. (Patient not taking: Reported on 09/11/2018 ) Gnfansivirkblfq-Lafwfnzta-WZ (BROMFED DM) 2-30-10 mg/5 mL sy rup Take 5-10 ml po q6h prn (Patient not taking: Reported on 09/11/2018 ) pseudoephedrine (SUDAFED) 30 mg tablet Take 1 tablet by mout h every 4 hours as needed. (Patient not taking: Reported on 11/23/2017 ) fluticasone (FLONASE) 50 mcg/actuation nasal spray Use 1 Spr ay in each nostril once daily. Ethinyl Estradiol-Norelgestrom (ORTHO EVRA) 150-35 mcg/24 hr Apply 1 Patch as directed once each week. No current facility-administered medications on file prior t o visit. ALLERGIES No Known Allergies OBJECTIVE/PHYSICAL EXAMINATION: BP 112/66 Pulse 82 Temp 37 ?C (98.6 ?F) (Temporal) Res p 16 Wt 64.4 kg (142 lb) SpO2 98% BMI 27.73 kg/m? General appearance: Well appearing, alert, in no acute distr ess, well-hydrated, well nourished. Skin: Skin color, texture, turgor normal, no suspicious rash es or lesions Head: Normocephalic, no masses, lesions, tenderness or abnor malities Eyes: Anicteric sclera. Extraocular movements are intact. Ears: External ears normal, canals clear, TM's normal Nose/Sinuses: Nares normal, septum midline, Oropharynx: Lips, mucosa, and tongue normal, teeth and gums normal, oropharynx normal Neck: Supple, no adenopathy; neck fullness without palpable nodules Lungs: Lungs clear to auscultation. No wheezing, rhonchi, ra les Heart: regular rate and rythm without murmur, normal S1 and S2 Abdomen: Normal abdominal exam, Abdomen soft, non-tender. Vaibhav wel sounds normal. No masses, organomegaly Extremities: No deformities, edema, skin discoloration, club paola or cyanosis. Good capillary refill. Musculoskeletal: {musculoskeletal:803::Spine range of motio n normal. Muscular strength intact,No joint Neuro:Awake, alert and oriented x 3, Cranial nerves II-XII g rossly intact, Normal gait and No involuntary motions. ASSESSMENT/PLAN: 1. Encounter for well adult exam with abnormal findings - IC D9: V70.0, ICD10: Z00.01 (primary diagnosis) - Encouraged monthly Breast Self Exam - Recommended regular aerobic exercise. - Check labs as ordered - Follow up for annual exam in one year. 2. Fatigue, unspecified type - ICD9: 780.79, ICD10: R53.83 - TSH BLD - T4 FREE/FREE THYROX - T3 BLD - CBC - VITAMIN D 25 HYDROXY - VITAMIN B12 BLOOD - Follow up to be determined by laboratory studies 3. Hoarse voice quality - ICD9: 784.42, ICD10: R49.0 - TSH BLD - T4 FREE/FREE THYROX - T3 BLD - US THYROID/PARATHYROID - Follow up to be determined by laboratory studies 4. Edema of hand - ICD9: 782.3, ICD10: R60.0 - TSH BLD - T4 FREE/FREE THYROX - T3 BLD - DEDRICK BY IFA SCREEN - SED RATE WESTERGREN - Follow up to be determined by laboratory studies 5. Edema of both feet - ICD9: 782.3, ICD10: R60.0 - TSH BLD - T4 FREE/FREE THYROX - T3 BLD - DEDRICK BY IFA SCREEN - SED RATE WESTERGREN - Follow up to be determined by laboratory studies 6. Dry eye - ICD9: 375.15, ICD10: H04.129 - TSH BLD - T4 FREE/FREE THYROX - T3 BLD - DEDRICK BY IFA SCREEN - SED RATE WESTERGREN - Follow up to be determined by laboratory studies 7. Chronic nonintractable headache, unspecified headache typ e - ICD9: 784.0, ICD10: R51 - SUMATRIPTAN 25 MG TABLET 8. Neck fullness - ICD9: 784.2, ICD10: R22.1 - US THYROID/PARATHYROID 9. Tobacco abuse counseling - ICD9: V65.42, 305.1, ICD10: Z7 1.6 - Cessation encouraged. - Physiologic and physical aspects of tobacco addiction as w ell as strategies for quitting were discussed. - Counseling was given focusing on the harmful effects of th is addiction especially given the patient's medical condition(s) which wi ll be worsened because of the chemicals in tobacco. - Counseling was given 3-4 minutes. - Recommended to called 1-800-QUIT NOW - Prescription for bupropion (Wellbutrin) given - BUPROPION XL 300 MG 24 HR TAB Prescription instructions reviewed with patient as applicabl e. Potential red flag symptoms discussed with the patient. Reviewed appro priate action plan to take if red flag symptoms occur. Patient agreeable t o treatment plan. Ward Bloom APRN.ACCOUNT RESOLUTION SPECIALIST free t4 on Free T4 [Mass/Vol] 1.1 0.9-1.7 ng/dL Normal 09-11-2018 [facility] ([id number]) Comment: Performed By: #### CBC, TSH, WSR, VITD, FT4, T3, B12, ANAIFS ####[facility] [id number] [place], [place] [phone] cnov on 2018-09-11 CNOV Office Visit (INTMWS) Normal 09-12-[address] [facility] ALMA DELIA DOW ([id number]) 1985 [facility] Date Time Provider Department ([id number]) 09/11/18 9:00 AM WARD BLOOM (ACCOUNT RESOLUTION SPECIALIST) INTMWS During your visit today, we recorded the following informati on about you: Temperature Pulse Respiration Blood pressure 98.6 degrees 82/minute 16/minute 112/66 Weight 64.4 kg Ward Bloom APRN.CNP 09/11/2018 10:24 AM Signed HPI/CC: Alma Deliagerri Dow is a 32 year old female who presents for a well adult [facility]. New concerns today include Thyroid Thyroid concerns: ongoing for the last ~6 years. Lab w ork previously checked by EVENT REPRESENTATIVE. States she has been borderline. Lately she has be en extremely fatigued- sleeps 7-8 hours a night, comp lains of change in voice quality since being sick over ~3 months ago, gaining weight despite exer cise and diet- up almost 10 lbs since May. Associated symptoms incl ude dry eyes and skin, hot and cold intolerances, sweating and swelling and numbness/tingling of the hands and feet intermittently. Exercises regularly with Walking squats, ab roller and push ups. Eats a lot of veggies. Works 2 jobs. Smoker 1/2 ppd. Interested in quitting. Complains of chronic headaches. Occurring nearly daily, st arting gradually. Located at neck, temporal and occipital lobe. Ex acerbated by light and sound. Better with rest and dark room. Occasion al nausea. No hx of migraines. Treated with Tylenol and ibuprofen with limited relief. Drinks no/minimal caffeine and ETOH. No recent head injury or trauma. REVIEW OF SYSTEMS: GENERAL:night sweats, gained ~10lbs since May DERMATOLOGIC: Denies any new skin conditions, rashes or quiroz ging moles. EYES: Denies recent visual changes. and Last eye exam was 2018 ENT: Denies hearing loss or tinnitus, last dental exam 6-8 m onths ago RESPIRATORY: Positive for cough. CARDIOVASCULAR: Denies any chest pain with exert ion or at rest, palpitations, syncope BREASTS: Denies any breast l umps, tenderness, dimpling, skin changes, or nipple discharge. GASTROINTESTINAL: Denies any nausea, vomiting, abdominal george n, heartburn, changes in bowel habit, Denies any rectal bleeding. GENITOURINARY: Denies any urinary frequency, urgency, incontinence, dysuria. Denies vaginal odor, dischar ge or lesions. Denies irregular vaginal bleeding or spotting. BSE? yes Last Pap 8 months ago PIT LABORER: NEURO: Denies any tremors, dizziness, ve rtigo, memory loss, confusion., Denies weakness, See HPI PSYCHIATRIC: + anxiety ENDOCRINE: Denies any polyuria or polydipsia. HISTORIES PAST MEDICAL HISTORY Diagnosis Date - NEGATIVE MEDICAL HISTORY PAST SURGICAL HISTORY Procedure Laterality Date - APPENDECTOMY age 12 - TONSILLECTOMY AND ADENOIDECTOMY HX age 6 FAMILY HISTORY Problem Relation Age of Onset - Diabetes Father type 2 - other (parkinsons) Maternal Grandmother Social History Socioeconomic History Marital status: Single Spouse name: Not on file Number of children: Not on file Years of education: Not on file Highest education level: Not on file Social Needs Financial resource strain: Not on file Food insecurity - worry: Not on file Food insecurity - inability: Not on file Transportation needs - medical: Not on file Transportation needs - non-medical: Not on file Occupational History Not on file Tobacco Use Smoking status: Current Every Day Smoker Packs/day: 0.50 Start date: 06/25/2003 Smokeless tobacco: Never Used Substance and Sexual Activity Alcohol use: Yes Comment: rare Drug use: No Sexual activity: Yes Partners: Male control/protection: Other Comment: OrthoEva Patch Other Topics Concerns: Not on file Social History Narrative Engaged, has 3 children with 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 Exercises with weights at home, regularly. Healthier diet most of the time. Current Outpatient Medications on File Prior to Visit: albuterol HFA (VENTOLIN HFA) 90 mcg/actuation inhaler Inhale 2 Puffs as instructed every 4 hours as needed for Wheezing/ Shortness of Breath. (Patient not taking: Reported on 09/11/2018 ) Aanoytwniwaxdcq-Huhijxxyb-DC (BROMFED DM) 2-30-10 mg/5 mL syrup Take 5-10 ml po q6h prn (Patient not taking: Reported on 09/11/2018 ) pseudoephedrine (SUDAFED) 30 mg tablet T hawk 1 tablet by mouth every 4 hours as needed. (Patient not taking: Reported on 11/23/2017 ) fluticasone (FLONASE) 50 mcg/actuation n wade spray Use 1 Chugwater in each nostril once daily. Ethinyl Estradiol-Norelgestrom (ORTHO EVRA) 150- 35 mcg/24 hr Apply 1 Patch as directed once each week. No current facility-administered medications on file prior t o visit. ALLERGIES No Known Allergies OBJECTIVE/PHYSICAL EXAMINATION: BP 112/66 Pulse 82 Temp 37 ?C (98.6 ?F) (Temporal) Res p 16 Wt 64.4 kg (142 lb) SpO2 98% BMI 27.73 kg/m? General appearance: Well robinson earing, alert, in no acute distress, well-hydrated, well nourished. Skin: Skin color, texture, turgor normal, no suspicious rash es or lesions Head: Normocephalic, no masses, lesions, tenderness or abnor malities Eyes: Anicteric sclera. Extraocular movements are intact. Ears: External ears normal, canals clear, TM's normal Nose/Sinuses: Nares normal, septum midline, Oropharynx: Lips, mucosa, and tongue nor mal, teeth and gums normal, oropharynx normal Neck: Supple, no adenopathy; neck fullness without palpable nodules Lungs: Lungs clear to auscultation. No wheezing, rhonchi, ra les Heart: regular rate and rythm without murmur, normal S1 and S2 Abdomen: Normal abdominal exam, Abdomen soft, non-tender. Bowel sounds normal. No masses, organomegaly Extremities: No deformities, edema, skin discolo ration, clubbing or cyanosis. Good capillary refill. Musculoskeletal: {musculoskeletal:803:: Spine range of motion normal. Muscular strength intact,No joint Neuro:Awake, alert and oriented x 3, Cranial nerves II-XII g rossly intact, Normal gait and No involuntary motions. ASSESSMENT/PLAN: 1. Encounter for well adult exam with abnormal f indings - ICD9: V70.0, ICD10: Z00.01 (primary diagnosis) - Encouraged monthly Breast Self Exam - Recommended regular aerobic exercise. - Check labs as ordered - Follow up for annual exam in one year. 2. Fatigue, unspecified type - ICD9: 780.79, ICD10: R53.83 - TSH BLD - T4 FREE/FREE THYROX - T3 BLD - CBC - VITAMIN D 25 HYDROXY - VITAMIN B12 BLOOD - Follow up to be determined by laboratory studies 3. Hoarse voice quality - ICD9: 784.42, ICD10: R49.0 - TSH BLD - T4 FREE/FREE THYROX - T3 BLD - US THYROID/PARATHYROID - Follow up to be determined by laboratory studies 4. Edema of hand - ICD9: 782.3, ICD10: R60.0 - TSH BLD - T4 FREE/FREE THYROX - T3 BLD - DEDRICK BY IFA SCREEN - SED RATE WESTERGREN - Follow up to be determined by laboratory studies 5. Edema of both feet - ICD9: 782.3, ICD10: R60.0 - TSH BLD - T4 FREE/FREE THYROX - T3 BLD - DEDRICK BY IFA SCREEN - SED RATE WESTERGREN - Follow up to be determined by laboratory studies 6. Dry eye - ICD9: 375.15, ICD10: H04.129 - TSH BLD - T4 FREE/FREE THYROX - T3 BLD - DEDRICK BY IFA SCREEN - SED RATE WESTERGREN - Follow up to be determined by laboratory studies 7. Chronic nonintractable headache, unspecified headac he type - ICD9: 784.0, ICD10: R51 - SUMATRIPTAN 25 MG TABLET 8. Neck fullness - ICD9: 784.2, ICD10: R22.1 - US THYROID/PARATHYROID 9. Tobacco abuse counseling - ICD9: V65.42, 305.1, ICD10: Z7 1.6 - Cessation encouraged. - Physiologic and physical aspects of tobacco ad diction as well as strategies for quitting were discussed. - Counseling was given focusing on the harmful effects of th is addiction especially given the patient's medical condition(s) which wi ll be worsened because of the chemicals in tobacco. - Counseling was given 3-4 minutes. - Recommended to called 1-800-QUIT NOW - Prescription for bupropion (Wellbutrin) given - BUPROPION XL 300 MG 24 HR TAB Prescription instructions reviewed with patient as robinson licable. Potential red flag symptoms discussed with the patient. Review ed appropriate action plan to take if red flag symptoms occur. Patient agreeable to treatm ent plan. Ward Bloom APRN.LEO Bloom APRN.LEO 09/11/2018 9:51 AM Signed SMOKING CESSATION Stopping smoking is the most important thing you can do to protect your current and future health, as well as that of your famil y. It is the most potent risk factor for the future develo pment of coronary artery disease and heart attacks. Smoking is both an addiction and a learned behavior. T he nicotine withdrawal takes anywhere from 2-4 weeks and results in symptoms such as irritability, fatigue, insomnia, coughing, dizziness, poor concentration, hunger and cigarette cravings. After the nicotine withdrawa l period, the learned linkage between certain acts or situations and cigarette use remain. Strategies to deal with these must be deve loped along with new behaviors to ensure successful smoking cessation. STRATEGIES TOWARD SMOKING CESSATION - Make a list of the reasons why you want to quit, plus the benefits to be gained, and compare them to the reasons why you should sarah nue to smoke. - Pick a specific quit date. - If you are interested in using nicotine patches or gum t o assist with the nicotine withdrawal, let the staff know. - Inform friends, family, and co-workers that you are quitting and when your quit date is. Ask for their understanding and support. - Prepare your environment by removing a ll cigarettes prior to your quit date. - Prior to your quit date, avoid smoking in places where y ou spend a lot of time (such as the house, work, car). - From previous quit attempts, identify what helped you to s top smoking. - From previous quit attempts, identify what triggered rel apse. How can you avoid that again? - What things (situations, emotions) do you anticipate will be most challenging, especially in the first few weeks, to your quit ting effort? - What can you do to address these challenges? - Avoid (or limit) alcohol consumption during the quitting p rocess. - If your spouse or close coworker tash zepeda smoke, consider quitting together or at the very least, develop specific plans to maintain you r cigarette abstinence while in the home or at work. - Take each day, each hour, each craving, one at a time. Every step or action you take toward smoking cessation is a success. The only roger lure is the failure to try. - The health of you and your family, is worth the effort. STOP SMOKING CHECK LIST Preparing to Quit: ___ Make a personal pact with yourself to quit. ___ Pick a date for quitting completely. (My date to quit is ____.) ___ Write down on a card the three most importan t reasons for quitting. Carry the card with you from now on. Look at it several times a da y. ___ Prior to quitting, elimi darby smoking completely in 2 or 3 of your high risk situations. ___ Reduce consumption to one pack per day or less. ___ Change to a less desirable brand of cigarettes. ___ Discard your coffee roaster helper. Use matches. Carry your cigarett es in a different place. ___ Spend a little time each day picturing in your mind stre ssful events occurring in the future and you not smoking. Actual Quitting: The First Two Weeks ___ Get rid of all cigarettes. Put away all smoking relate d objects such as ashtrays. Ask the people you live with not to smoke in your presence for the first two weeks. ___ Spend as much time as possible with non-smoking people. ___ Keep busy, especially on evenings and weekends. ___ Avoid high risk situations (large parties, bars, etc.). ___ Spend lots of time in places that prohibit or discoura ge smoking (e.g., theaters, libraries.) ___ Drink plenty of fluids. ___ Don't substitute food or sugar based products for cigarettes. Use approved substitutions. (... ice water, high bulk/low calorie foods, sugarless gum, mouthwash, brushing teeth.) ___ Begin or increase regular exercise program. ___ When experiencing withdrawal effects: 1. Remind yourself why you are quitting (from your card). 2. Remind yourself that whatever discomfort you are experien cing is only a tiny fraction of the probable discomfort ass ociated with continued smoking. 3. Practice deep breathing or other relaxation techniques - tapes. ___ Remind yourself that you can free yo urself from this unhealthy, expensive, messy habit and become a non-smoker. Maintenance of Quitting: After two weeks ___ Remind yourself that the desire to smoke is linked to a great many situations, people and emotional stress. ___ When you do have a desire to smoke, remember that it onl y lasts a few seconds: distract yourself and leave the situation if necess kan. ___ After each desire to smoke has passed, pat y ourself on the back, you have just made progress in breaking the habit forever. ___ Save the money on wasted on cigarettes in a special fund and buy yourself something nice. Maintenance of Quitting: After Two Months ___ Be particularly vigilant when unusual life events occur. (.. weddings, holidays, vacations.) ___ Be particularly vigilant when stressful life events occu r (e.g., relationship problems, financial or work problems.) ___ Remind yourself regularly that not smoking is completely within your personal control. ___ Never lull yourself into thinking yo u are out of danger and you can safely have a cigarette or two. -- you cannot!!!!! ___ If, by chance, you do sl ip and have one or more cigarettes, do not conclude that all is lost. Return to complete abstinence imme diately and learn from your experience. ___ If you have gained signi ficant weight since quitting, now is the time to do something about it. ___ Each time you see a cigarettes advertisement, shane nd yourself of why you quit. Also remember that a powerful industry spends bi llions of dollars each year trying to get people like yourself re-hooked. Recommend: [place] Tobacco Quit Line: 2-218-Doiu-Now (8-832-163 -4968) [place] [employer] [employer]: for help and tip s to quit smoking Referring Provider: SELF [200] Allergies As of Date: 09/11/2018 (No Known Allergies) Date Reviewed: 09/11/2018 Reviewed by: Maddy Reynolds Ma - Fully Assessed Reason for Visit: Establish Care [42] Cmt: Needs primary care Primary Visit Diagnosis:Encounter for well adult exam with abnormal findings [Z00.01] Other Visit Diagnoses:Fatigue, unspecified type [R53.83] Hoarse voice quality [R49.0] Edema of hand [R60.0] Edema of both feet [R60.0] Dry eye [H04.129] Chronic nonintractable headache, unspecified headache type [R51] Neck fullness [R22.1] Tobacco abuse counseling [Z71.6] Order(s):TSH BLD [SQTSH] Order #: [id number] FUTURE T4 FREE/FREE THYROX [SQFT4] Order #: [id number] FUTURE T3 BLD [SQT3] Order #: [id number] FUTURE DEDRIKC BY IFA SCREEN [SQANAIFS] Order #: [id number] FUTURE SED RATE WESTERGREN [SQWSR] Order #: [id number] FUTURE CBC [SQCBC] Order #: [id number] FUTURE VITAMIN D 25 HYDROXY [SQVITD] Order #: [id number] FUTURE VITAMIN B12 BLOOD [SQB12] Order #: [id number] FUTURE SUMAtriptan (IMITREX) 25 mg tabletTake 1 tablet by mouth as needed. May repeat dose after 2 hours if ineffectiveDisp: 9 tabletRf l: 1 buPROPion XL (WELLBUTRIN XL) 300 mg 24 hr tabletTake 1 table t by mouth once daily.Disp: 30 tabletRfl: 2 US THYROID/PARATHYROID [[id number]] Order #: [id number] FUTURE Prescriptions as of 09/11/2018 Sig: SUMATRIPTAN 25 MG TABLET Take 1 tablet by mouth as nee* BUPROPION XL 300 MG 24 HR TAB Take 1 tablet by mouth once d* ALBUTEROL SULFATE HFA 90 MCG/* Inhale 2 Puffs as instructed * Patient not taking: Reported on 09/11/2018 BROMPHENIRAMINE-PSEUDOEPHEDRI* Take 5-10 ml po q6h prn Patient not taking: Reported on 09/11/2018 PSEUDOEPHEDRINE 30 MG TABLET Take 1 tablet by mouth every * Patient not taking: Reported on 11/23/2017 FLUTICASONE PROPIONATE 50 MCG* Use 1 Chugwater in each nostril o * NORELGESTROMIN 150 MCG-E.ESTR* Apply 1 Patch as directed onc * Problem List As Of Date 09/11/2018 Noted Resolved Tobacco dependence [F17.200] INVALID FOR* Other instructions from your clinician: SMOKING CESSATION Stopping smoking is the most important thing you can do to p rotect your current and future health, as well as that of your family. I t is the most potent risk factor for the future development of coronary ar kiana disease and heart attacks. Smoking is both an addiction and a learned behavior. The bernie otine withdrawal takes anywhere from 2-4 weeks and results in symp toms such as irritability, fatigue, insomnia, coughing, dizziness, poor c oncentration, hunger and cigarette cravings. After the nicotine withdrawal period, the learned linkage between certain acts or situations and cigar ette use remain. Strategies to deal with these must be developed gladys g with new behaviors to ensure successful smoking cessation. STRATEGIES TOWARD SMOKING CESSATION - Make a list of the reasons why you want to quit, plus the benefits to be gained, and compare them to the reasons why you should sarah nue to smoke. - Pick a specific quit date. - If you are interested in using nicotine patches or gum to assist with the nicotine withdrawal, let the staff know. - Inform friends, family, and co-workers that you are quitti ng and when your quit date is. Ask for their understanding and support. - Prepare your environment by removing all cigarettes prior to your quit date. - Prior to your quit date, avoid smoking in places where you spend a lot of time (such as the house, work, car). - From previous quit attempts, identify what helped you to s top smoking. - From previous quit attempts, identify what triggered relap se. How can you avoid that again? - What things (situations, emotions) do you anticipate will be most challenging, especially in the first few weeks, to your quit ting effort? - What can you do to address these challenges? - Avoid (or limit) alcohol consumption during the quitting p rocess. - If your spouse or close coworker currently smoke, consider quitting together or at the very least, develop specific plans to sonya ntain your cigarette abstinence while in the home or at work. - Take each day, each hour, each craving, one at a time. Jen ry step or action you take toward smoking cessation is a success. The o nly failure is the failure to try. - The health of you and your family, is worth the effort. STOP SMOKING CHECK LIST Preparing to Quit: ___ Make a personal pact with yourself to quit. ___ Pick a date for quitting completely. (My date to quit is ____.) ___ Write down on a card the three most important reasons fo r quitting. Carry the card with you from now on. Look at it several time s a day. ___ Prior to quitting, eliminate smoking completely in 2 or 3 of your high risk situations. ___ Reduce consumption to one pack per day or less. ___ Change to a less desirable brand of cigarettes. ___ Discard your coffee roaster helper. Use matches. Carry your cigarettes in a different place. ___ Spend a little time each day picturing in your mind stre ssful events occurring in the future and you not smoking. Actual Quitting: The First Two Weeks ___ Get rid of all cigarettes. Put away all smoking related objects such as ashtrays. Ask the people you live with not to smoke in yo ur presence for the first two weeks. ___ Spend as much time as possible with non-smoking people. ___ Keep busy, especially on evenings and weekends. ___ Avoid high risk situations (large parties, bars, etc.). ___ Spend lots of time in places that prohibit or discourage smoking (e.g., theaters, libraries.) ___ Drink plenty of fluids. ___ Don't substitute food or sugar based products for cigare ttes. Use approved substitutions. (... ice water, high bulk/low calori e foods, sugarless gum, mouthwash, brushing teeth.) ___ Begin or increase regular exercise program. ___ When experiencing withdrawal effects: 1. Remind yourself why you are quitting (from your card). 2. Remind yourself that whatever discomfort you are experiencing is only a tiny fraction of the probable discomf ort associated with continued smoking. 3. Practice deep breathing or other relaxation techniques - tapes. ___ Remind yourself that you can free yourself from this unh ealthy, expensive, messy habit and become a non-smoker. Maintenance of Quitting: After two weeks ___ Remind yourself that the desire to smoke is linked to a great many situations, people and emotional stress. ___ When you do have a desire to smoke, remember that it onl y lasts a few seconds: distract yourself and leave the situation if necess kan. ___ After each desire to smoke has passed, pat yourself on t he back, you have just made progress in breaking the habit forever. ___ Save the money on wasted on cigarettes in a special fun d and buy yourself something nice. Maintenance of Quitting: After Two Months ___ Be particularly vigilant when unusual life events occur. (.. weddings, holidays, vacations.) ___ Be particularly vigilant when stressful life events occu r (e.g., relationship problems, financial or work problems.) ___ Remind yourself regularly that not smoking is completely within your personal control. ___ Never lull yourself into thinking you are out of danger and you can safely have a cigarette or two. -- you cannot!!!!! ___ If, by chance, you do slip and have one or more cigarett es, do not conclude that all is lost. Return to complete abstinence i mmediately and learn from your experience. ___ If you have gained significant weight since quitting, no w is the time to do something about it. ___ Each time you see a cigarettes advertisement, remind you rself of why you quit. Also remember that a [employer] industry spends bill ions of dollars each year trying to get people like yourself cortney maryamshadia. Recommend: [place] Tobacco Quit Line: 2-176-Hqpg-Now () [place] [employer] [employer]: for help and tips to quit smoking Prescriptions ordered this encounter Disp Refills Start End SUMATRIPTAN 25 MG TABLET 9 ta* 1 09/11/2018 Route: ORAL Sig: Take 1 tablet by mouth as needed. May repeat dose after 2 hours if ineffective BUPROPION XL 300 MG 24 HR TAB 30 t* 2 09/11/2018 Route: ORAL Sig: Take 1 tablet by mouth once daily. Encounter Status:Closed by WARD BLOOM CNP on 09/11/18 cbc on 2018-09-11 Absolute nRBC <0.01 <0.01 Normal 09-11-2018 [facility] ([id number]) Comment: Performed By: #### CBC, TSH, WSR, VITD, FT4, T3, B12, ANAIFS #### [facility] [address] [address] Erythrocyte distribution 13.2 11.5-15.0 % Normal 09-11 [facility] width (RBC) [Ratio] [place] ([id number]) Comment: Performed By: #### CBC, TSH, WSR, VITD, FT4, T3, B12, ANAIFS #### [facility] [address] [address] Hematocrit (Bld) [Volume 38.8 36.0-46.0 % Normal 09-11 [facility] fraction] [place] ([id number]) Comment: Performed By: #### CBC, TSH, WSR, VITD, FT4, T3, B12, ANAIFS #### [facility] [address] [address] Hemoglobin (Bld) 12.8 11.5-15.5 g/dL Normal 09-11-2018 [facility] [Mass/Vol] [place] ([id number]) Comment: Performed By: #### CBC, TSH, WSR, VITD, FT4, T3, B12, ANAIFS #### [facility] [address] [address] MCH (RBC) [Entitic mass] 33.2 26.0-34.0 pG Normal 09-11 [facility] ([id number]) Comment: Performed By: #### CBC, TSH, WSR, VITD, FT4, T3, B12, ANAIFS #### [facility] [address] [address] MCHC (RBC) [Mass/Vol] 33.0 30.5-36.0 g/dL Normal 09-12-19 19 [facility] ([id number]) Comment: Performed By: #### CBC, TSH, WSR, VITD, FT4, T3, B12, ANAIFS #### [facility] [address] [place], [place] [address] MCV (RBC) [Entitic vol] 100.5 80.0-100.0 fL High 09-11 [facility] ([id number]) Comment: Performed By: #### CBC, TSH, WSR, VITD, FT4, T3, B12, ANAIFS #### [facility] [place], [place] [address] Platelet mean volume 9.5 9.0-12.7 fL Normal 9 [facility] (Bld) [Entitic vol] ([id number]) Comment: Performed By: #### CBC, TSH, WSR, VITD, FT4, T3, B12, ANAIFS #### [facility] [place], [place] [address] Platelets (Bld) [#/Vol] 407 150-400 k/uL High 2018 [facility] ([id number]) Comment: Performed By: #### CBC, TSH, WSR, VITD, FT4, T3, B12, ANAIFS #### [facility] [place], [place] [address] RBC (Bld) [#/Vol] 3.86 3.90-5.20 m/uL Low 09-11-2018 C [facility] ([id number]) Comment: Performed By: #### CBC, TSH, WSR, VITD, FT4, T3, B12, ANAIFS #### [facility] [address] [place], [place] [address] WBC (Bld) [#/Vol] 8.25 3.70-11.00 k/uL Normal 09-11-2018 [facility] ([id number]) Comment: Performed By: #### CBC, TSH, WSR, VITD, FT4, T3, B12, ANAIFS #### [facility] [address] [place], [place] [address] dedrick by ifa on 09-11 DEDRICK Pattern Not applicable for Normal 9 [facility] negative result. [facility] ([id number]) Comment: Performed By: #### CBC, TSH, WSR, VITD, FT4, T3, B12, ANAIFS ####[facility] [address] [place], [place] [phone] DEDRICK Titer Negative Negative Normal 09-11-2018 [facility] ([id number]) Comment: Result Comment: Normal range : negative at <1:80 serum dilution. Performed By: #### CBC, TSH, WSR, VITD, FT4, T3, B12, ANAIFS ####[facility] [address] [place], [place] [phone] Nuclear Ab IF (S) Negative Negative Normal 09-11-2018 [facility] [Titer] [place] ([id number]) Comment: Result Comment: Normal range : negative at <1:80 serum dilution. Approximately 6% of patients with connective tissue diseases with low positive EIA values are negative by IFA. Recommend follow-up with specific antinuclear antibodies if clinically indicated. Performed By: #### CBC, TSH, WSR, VITD, FT4, T3, B12, ANAIFS ####[facility] [id number] [place], [place] [phone] xr chest 2v frontal/lat on 2018-05-11 XR CHEST 2V * * *Final Report* * * Normal 05-11 [facility] FRONTAL/LAT DATE OF EXAM: May 11 2018 2:03PM [place] WOX [id number] - XR CHEST 2V FRONTAL/LAT / ([id number]) PROCEDURE REASON: Cough * * * * Physician Interpretation * * * * EXAMINATION: CHEST RADIOGRAPH (2 VIEW FRONTAL and LATERAL) Clinical History: Cough M: XC2_4 Comparison: None RESULT: Lines, tubes, and devices: None. Lungs and pleura: No consolidation, pleural effusion or pneu mothorax. Cardiomediastinal silhouette: Within normal limits. Other: No acute osseous abnormality. IMPRESSION: No acute radiographic abnormality. Store Protection Specialist: SILAS Transcribe Date/Time: May 11 2018 2:07P Dictated by : NIC GUTIERREZ MD This examination was interpreted and the report reviewed and electronically signed by: NIC GUTIERREZ MD on May 11 2018 2:08PM EST [id number] progress on 2018-05 PROGRESS HNO ID: [id number] Normal 05-11-2018 [facility] Author: Delmy () Elliot Dingveland ([id number]) Service: (none) Author Type: Cake Press Operator Helper Type: Progress Notes Filed: 05/11/2018 2:04 PM Note Text: Radiology Service Progress Note PATIENT NAME: Alma Delia Dow DATE OF SERVICE: May 11, 2018 TIME: 2:04 PM PATIENT IDENTITY VERIFICATION COMPLETED USING TWO (2) METHOD S: Patient confirmed name verbally and Date of . PATIENT GENDER DATA: Female. status: : No status: NO. PATIENT RELEVANT IMPLANT DATA REVIEWED: Not Applicable RADIOLOGY DEPARTMENT: General X-ray: Exam(s) Completed: Ches t X-Ray PERIPHERAL IV DATA: Not applicable SIGNED BY: RT Mj May 11, 2018 2:04 PM PROGRESS HNO ID: [id number] Normal 05-11-2018 [facility] Author: Roselyn Esparza ([id number]) Service: (none) Author Type: Nurse Practitioner Type: Progress Notes Filed: 05/11/2018 3:09 PM Note Text: Subjective HPI HPI Alma Delia Dow is a 32 year old female who presents t manasa for CC of cough, nasal congestion. This started 7 days ago. Has tried otc medication. Was seen in on 05/02 treated for URI and OM. Cough worse. Patient is an everyday smoker. Denies possibility of being p regnant. .Patient presents with: Cough Sinus Infection,frequent/recurring PAST MEDICAL HISTORY Diagnosis Date - NEGATIVE MEDICAL HISTORY PAST SURGICAL HISTORY Procedure Laterality Date - APPENDECTOMY age 12 - TONSILLECTOMY AND ADENOIDECTOMY HX age 6 ALLERGIES Patient has no known allergies. -This section reviewed with patient, no changes MEDICATIONS Rouqzzmsvfvuvcu-Dhvhijvzy-QH (BROMFED DM) 2-30-10 mg/5 mL sy rup Take 5-10 ml po q6h prn cefdinir (OMNICEF) 300 mg capsule Take 1 capsule by mouth tw ice daily for 10 days. fluticasone (FLONASE) 50 mcg/actuation nasal spray Use 1 Spr ay in each nostril once daily. Ethinyl Estradiol-Norelgestrom (ORTHO EVRA) 150-35 mcg/24 hr Apply 1 Patch as directed once each week. pseudoephedrine (SUDAFED) 30 mg tablet Take 1 tablet by mout h every 4 hours as needed. FAMILY HISTORY Problem Relation Age of Onset - Diabetes Father type 2 - other (parkinsons [Other]) Maternal Grandmother Social History Substance Use Topics - Smoking status: Current Every Day Smoker Packs/day: 0.50 Start date: 06/25/2003 - Smokeless tobacco: Never Used - Alcohol use Yes Comment: rare Review of Systems Constitutional: Negative for chills, fever and weight loss. HENT: Positive for congestion and sore throat. Negative for ear pain and nosebleeds. Respiratory: Positive for cough. Negative for shortness of b reath and wheezing. Musculoskeletal: Negative for neck pain. Objective Blood pressure 100/86, pulse 109, temperature 37.5 ?C (99.5 ?F), temperature source Left Tympanic, resp. rate 16, weight 60.3 kg (133 lb), SpO2 96 %. Physical Exam Constitutional: She is oriented to person, place, and time a nd well-developed, well-nourished, and in no distress. Non-toxi c appearance. She does not have a sickly appearance. No distress. HENT: Head: Normocephalic and atraumatic. Right Ear: Hearing, tympanic membrane, external ear and ear canal normal. Left Ear: Hearing, tympanic membrane, external ear and ear c anal normal. Nose: Nose normal. Mouth/Throat: Uvula is midline, oropharynx is clear and mois t and mucous membranes are normal. Eyes: Pupils are equal, round, and reactive to light. Conjun ctivae and lids are normal. Right eye exhibits no discharge. Left eye e xhibits no discharge. No scleral icterus. Neck: Trachea normal and normal range of motion. Neck supple . Cardiovascular: Normal rate, regular rhythm and normal heart sounds. Pulmonary/Chest: Effort normal. She has rales in the left lo wer field. Lungs clear after nebulizer treatment Lymphadenopathy: She has no cervical adenopathy. Neurological: She is alert and oriented to person, place, an d time. Skin: No rash noted. She is not diaphoretic. ASSESSMENT/PLAN: 1. Cough - ICD9: 786.2, ICD10: R05 (primary diagnosis) As below, discussed smoking cessation -If you experience chest pain/shortness of breath go to ER - ALBUTEROL SULFATE 2.5 MG/3 ML (0.083 %) SOLUTION FOR NEBUL IZATION - XR CHEST 2V FRONTAL/LAT - Dictated by : NIC Vee MD Impression IMPRESSION: No acute radiographic abnormality. - PREDNISONE 20 MG TABLET - ALBUTEROL SULFATE HFA 90 MCG/ACTUATION AEROSOL INHALER 2. URI with cough and congestion - ICD9: 465.9, ICD10: J06.9 - Discussed viral etiology and rationale for treatment. - Symptomatic treatment with prn analgesia - Supportive care with fluids and rest - Follow up in 3-5 days if symptoms persist or sooner if wor sening of symptoms - ALBUTEROL SULFATE 2.5 MG/3 ML (0.083 %) SOLUTION FOR NEBUL IZATION - XR CHEST 2V FRONTAL/LAT - PREDNISONE 20 MG TABLET - ALBUTEROL SULFATE HFA 90 MCG/ACTUATION AEROSOL INHALER Prescription instructions reviewed with patient as applicabl e. Patient advised if symptoms do not improve or if symptoms worsen jason ner, to contact the office for further evaluation by their primary c are physician. Potential red flag symptoms discussed with the patient. Revteresa ewed appropriate action plan to take if red flag symptoms occur. Patient agreeable to treatment plan. Roselyn Knott APRN.LEO gonzalez on 2018-05-11 CNOV Office Visit (UCWSTR) Normal 05-11-20 18 [place] [facility] ALMA DELIA DOW ([id number]) 1985 [address] [place] Date Time Provider Department ([id number]) 05/11/18 1:00 PM ROSELYN KNOTT (LEO) [facility] During your visit today, we recorded the following informati on about you: Temperature Pulse Respiration Blood pressure 99.5 degrees 109/minute 16/minute 100/86 Weight 60.3 kg Roselyn Knott APRN.CNP 05/11/2018 3:09 PM Signed Subjective HPI HPI Alma Delia Dow is a 32 year old female who presents t manasa for CC of cough, nasal congestion. This started 7 days ago. Has trie d otc medication. Was seen in on 05/02 treated for URI and OM. Cough worse. Patient is an everyday smoker. Denies possibility of being . .Patient presents with: Cough Sinus Infection,frequent/recurring PAST MEDICAL HISTORY Diagnosis Date - NEGATIVE MEDICAL HISTORY PAST SURGICAL HISTORY Procedure Laterality Date - APPENDECTOMY age 12 - TONSILLECTOMY AND ADENOIDECTOMY HX age 6 ALLERGIES Patient has no known allergies. -This section reviewed with patient, no changes MEDICATIONS Mspkekwbeevuoaw-Ipaqvfaem-JG (BROMFED DM) 2-30-10 mg/5 mL syrup Take 5-10 ml po q6h prn cefdinir (OMNICEF) 300 mg capsule Take 1 capsule by mo uth twice daily for 10 days. fluticasone (FLONASE) 50 mcg/actuation n wade spray Use 1 [place] in each nostril once daily. Ethinyl Estradiol-Norelgestrom (ORTHO EVRA) 150- 35 mcg/24 hr Apply 1 Patch as directed once each week. pseudoephedrine (SUDAFED) 30 mg tablet T hawk 1 tablet by mouth every 4 hours as needed. FAMILY HISTORY Problem Relation Age of Onset - Diabetes Father type 2 - other (parkinsons [Other]) Maternal Grandmother Social History Substance Use Topics - Smoking status: Current Every Day Smoker Packs/day: 0.50 Start date: 06/25/2003 - Smokeless tobacco: Never Used - Alcohol use Yes Comment: rare Review of Systems Constitutional: Negative for chills, fever and weight loss. HENT: Positive for congestion and sore throat. Negative for ear pain and nosebleeds. Respiratory: Positive for co ugh. Negative for shortness of breath and wheezing. Musculoskeletal: Negative for neck pain. Objective Blood pressure 100/86, pulse 109, temperature 37.5 ?C (99.5 ?F), temperature source Left Tympanic, resp. rate 16, weight 60.3 kg (133 lb) , SpO2 96 %. Physical Exam Constitutional: She is oriented to perso n, place, and time and well-developed, well-nourished, and in no distress. Non-toxic ap pearance. She does not have a sickly appearance. No distress. HENT: Head: Normocephalic and atraumatic. Right Ear: Hearing, tympanic membrane, external ear and ear canal normal. Left Ear: Hearing, tympanic membrane, external ear and ear c anal normal. Nose: Nose normal. Mouth/Throat: Uvula is midline, oropharynx is clear and mois t and mucous membranes are normal. Eyes: Pupils are equal, roun d, and reactive to light. Conjunctivae and lids are normal. Right eye exhibits no discharge. Left eye exhibits no discharge. No scleral icterus. Neck: Trachea normal and normal range of motion. Neck supple . Cardiovascular: Normal rate, regular rhythm and normal heart sounds. Pulmonary/Chest: Effort normal. She has rales in the left lo wer field. Lungs clear after nebulizer treatment Lymphadenopathy: She has no cervical adenopathy. Neurological: She is alert and oriented to person, place, an d time. Skin: No rash noted. She is not diaphoretic. ASSESSMENT/PLAN: 1. Cough - ICD9: 786.2, ICD10: R05 (primary diagnosis) As below, discussed smoking cessation -If you experience chest pain/shortness of breath go to ER - ALBUTEROL SULFATE 2.5 MG/3 ML (0.083 %) SOLUTION FOR NEBUL IZATION - XR CHEST 2V FRONTAL/LAT - Dictated by : NIC Vee MD Impression IMPRESSION: No acute radiographic abnormality. - PREDNISONE 20 MG TABLET - ALBUTEROL SULFATE HFA 90 MCG/ACTUATION AEROSOL INHALER 2. URI with cough and congestion - ICD9: 465.9, ICD10: J06.9 - Discussed viral etiology and rationale for treatment. - Symptomatic treatment with prn analgesia - Supportive care with fluids and rest - Follow up in 3-5 days if symptoms pers ist or sooner if worsening of symptoms - ALBUTEROL SULFATE 2.5 MG/3 ML (0.083 %) SOLUTION FOR NEBUL IZATION - XR CHEST 2V FRONTAL/LAT - PREDNISONE 20 MG TABLET - ALBUTEROL SULFATE HFA 90 MCG/ACTUATION AEROSOL INHALER Prescription instructions reviewed with patient as applicable. Patient advised if symptoms do not improve or if symptom s worsen sooner, to contact the office for further evaluation by their primary care physician. Birdie wellsial red flag symptoms discussed with the patient. Reviewed ap propriate action plan to take if red flag symptoms occur. Patient agreeable to treatment p vernell. Roselyn Knott APRN.LEO Childs Ma 05/11/2018 1:37 PM Signed 2.5 solution aerosol treatme nt given per doctor's orders. Prior to treatment O2 Sat is 96%. Treatment completed. O2 sat is 99%. Tolerated we ll. Referring Provider: SELF [[id number]] Allergies As of Date: 05/11/2018 (No Known Allergies) Date Reviewed: 05/11/2018 Reviewed by: Roselyn (Larry Operator) - Fully Assessed Reason for Visit: Cough [28] Sinus Infection,frequent/recurring [1167] Primary Visit Diagnosis:Cough [R05] Other Visit Diagnosis:URI with cough and congestion [J06.9] Order(s):[] albuterol 2.5 mg /3 mL (0.083 %) 2.5 mg (PROVENTIL)Disp: Rfl: XR CHEST 2V FRONTAL/LAT [[id number]] Order #: [id number] FUTURE predniSONE (DELTASONE) 20 mg tabletTake 2 tablets by mouth o nce daily for 5 days.Disp: 10 tabletRfl: 0 albuterol HFA (VENTOLIN HFA) 90 mcg/actuation inhalerInhale 2 Puffs as instructed every 4 hours as needed for Wheezing/Shortness of Breath.Disp: 1 InhalerRfl: 0 Prescriptions as of 05/11/2018 Sig: BROMPHENIRAMINE-PSEUDOEPHEDRI* Take 5-10 ml po q6h prn CEFDINIR 300 MG CAPSULE Take 1 capsule by mouth twice* FLUTICASONE 50 MCG/ACTUATION * Use 1 [place] in each nostril o * NORELGESTROMIN 150 MCG-E.ESTR* Apply 1 Patch as directed onc * PREDNISONE 20 MG TABLET Take 2 tablets by mouth once * ALBUTEROL SULFATE HFA 90 MCG/* Inhale 2 Puffs as instructed * PSEUDOEPHEDRINE 30 MG TABLET Take 1 tablet by mouth every * Patient not taking: Reported on 11/23/2017 Problem List As Of Date 05/11/2018 Noted Resolved Tobacco dependence [F17.200] INVALID FOR* Visit Notes: >> Liana Childs Ma MonMay 11, 2018 1:36 PM Status: Si gned 2.5 solution aerosol treatment given per doctor's orders. Pr ior to treatment O2 Sat is 96%. Treatment completed. O2 sat is 99%. Tolerated well. Prescriptions ordered this encounter Disp Refills Start End ALBUTEROL SULFATE 2.5 MG/3 ML (0.083* 05/11/2018 05/11/2018 Route: INHALATION PREDNISONE 20 MG TABLET 10 t* 0 05/11/2018 05/16/2018 Route: ORAL Sig: Take 2 tablets by mouth once daily for 5 days. ALBUTEROL SULFATE HFA 90 MCG/ACTUATI* 1 In* 0 05/11/2018 Route: INHALATION Sig: Inhale 2 Puffs as instructed every 4 hours as needed fo r Wheezing/Shortness of Breath. Encounter Status:Closed by ROSELYN KNOTT CNP on 05/11/18 Summary Purpose Family History No Family History Records Found Advance Directives No Advanced Directives Records Found Additional Source Comments FOR RECORDS PERTAINING TO PATIENTS WHO ARE OR HAVE BEEN ENROLLED IN A CHEMICAL DEPENDENCY/SUBSTANCE ABUSE PROGRAM, SOME INFORMATION MAY BE OMITTED. This clinical summary was aggregated from multiple sources. Caution should be exercised in using it in the provision of clinical care. This summary normalizes information from multiple sources, and as a consequence, information in this document may materially changethe coding, format and clinical context of patient data. In addition, data may be omittedin some cases. CLINICAL DECISIONS SHOULD BE BASED ON THE PRIMARY CLINICAL RECORDS. [facility] provides no warranty or guarantee of the accuracy or completeness of information in this document. UNRECOGNIZED CONTENT PROVIDED BELOW FOR UNRECOGNIZED SECTION INFORMATION SOURCE DATE CREATED AUTHOR AUTHOR'S DALTON N 05/09/2019 [facility]
== END | disposition home or self-care (01) ==
PROVIDERS: Visit Provider Obstetrics & Gynecology
DX: N30.00 Acute cystitis without hematuria (principal)
CPT/HCPCS: 87086

== ENCOUNTER → 2019-11-22 16:41 | Outpatient (CLI) | payer MEDICAID, SELFPAY ==
[2019-07-11 10:26] VITALS: BMI 25.6
[2019-11-22 17:02] LABS: Bacteria 0 SEEN /hpf (None Seen); Mucous, Urine 0 SEEN /hpf (<or=2+); Red Blood Cells-Urine 0 SEEN /hpf (0-5); Squamous Epithelial Cells - UA 0 SEEN /hpf (5-10); White Blood Cells 0 SEEN /hpf (0-5)
[2019-11-22 17:20] LABS: Color, Urine Straw (Yellow); Glucose, Dipstick Normal (Normal); Ketone-Dipstick Negative (Negative); Leukocyte Esterase-Dipstick Negative /ul (Negative); Nitrite-Dipstick Negative (Negative); Occult Blood-Urine 50 /ul (Negative); Protein-Dipstick Negative (Negative); Specific Gravity, Urine 1.005 (1.002-1.030); Urine Bilirubin Dipstick Negative (Negative); Urine Clarity Clear (Clear); Urine Urobilinogen Normal (Normal); Urine pH 6.5 (5.0 - 8.0)
== END ==
PROVIDERS: Referring Provider Obstetrics & Gynecology; Visit Provider Obstetrics & Gynecology
DX: R30.0 Dysuria (principal)
CPT/HCPCS: 81001; 87086; 87088

== ENCOUNTER 2021-01-07 21:46 | Emergency (ER) | payer MEDICAID, SELFPAY ==
[2019-07-11 10:26] VITALS: BMI 25.6
[2021-01-07 21:48] VITALS: BP 126/99; PULSE 128; RESP 16; TEMP 36.2; O2SAT 98; BMI 30.5
--- NOTE | 2021-01-07 22:41 | ED.RN ---
PT LEFT WITHOUT BEING SEEN AT 2225, REPORTED TO STAFF THAT SHE WAS NOT BEING SEEN FAST ENOUGH.
== END 2021-01-07 22:25 | disposition left against medical advice (07) ==
LOC: ED 22:41
DX: R69 Illness, unspecified (principal); Z53.21 Procedure and treatment not carried out due to patient leaving prior to being seen by health care provider

== ENCOUNTER 2021-03-19 12:33 | Emergency (ER) | payer MEDICAID, SELFPAY ==
[2021-03-19 12:33] VITALS: BP 139/90; PULSE 99; RESP 18; TEMP 36.2; O2SAT 98; BMI 30.4
--- NOTE | 2021-03-19 15:31 | ED.RN ---
prior to pt going back to ED room, she yelled at education counselor because a critical patient was taken back to a room before her. The patient ended up leaving prior to being seen by ED physician. Nikky, special police officer, also talked to pt about her behavior and negative comments being made about nursing staff.
== END 2021-03-19 15:00 | disposition left against medical advice (07) ==
LOC: ED 15:03
PROVIDERS: Emergency Provider Emergency Medicine
DX: R69 Illness, unspecified (principal); Z53.21 Procedure and treatment not carried out due to patient leaving prior to being seen by health care provider
CPT/HCPCS: 99281

== ENCOUNTER 2022-01-29 21:09 | Emergency (ER) | payer MEDICAID, SELFPAY ==
[2022-01-29 21:11] VITALS: BP 136/96; PULSE 141; RESP 15; TEMP 37.2; O2SAT 99; BMI 32.2
--- NOTE | 2022-01-29 21:25 | RAD_ITS ---
STUDY: X-RAY - LEFT RADIUS AND ULNA REASON FOR EXAM: Female, 36 years old. INJURY TECHNIQUE: 2 view(s) of the forearm. COMPARISON: None. FINDINGS: There is no demonstrated soft tissue swelling. Acute medially displaced oblique fractures of the distal shaft of the radius and ulna. RAD/Forearm 2 Views IMPRESSION: Acute medially displaced oblique fractures of the distal shaft of the radius and ulna. Electronically Signed: Lamin Curry MD at 22:08 EDT ,
--- NOTE | 2022-01-29 22:00 | EX.ED.UPPERE ---
HPI History of Present Illness Chief Complaint: Upper Extremity Injury Informant: patient Occured/Mechanism Mechanism/Context: Yes fall Onset/Context/Timing Onset: Today (JPTA) Context: Sudden Onset Timing: Continuous Quality of Pain: Aching Location: L forearm Current Severity: Severe Maximum Severity: Severe Worsened by: movement Relieved by: nothing Associated Symptoms Associated Symptoms: Positive for Loss of Funtion; Negative for Parasthesia or Weakness Narrative Narrative: Patient states she fell off of a porch step, injured her left forearm, scraped her right leg as well but she is able to walk on it and it is not hurting. Just her left forearm is injured. Last ate around 1800, 4 hours prior to arrival. Vwei-iyue-ibblvpxz. [facility], [facility] Medical History Abnormal results of thyroid function studies Hair loss Hx of sepsis Insomnia Malaise and fatigue Smoker Unspecified voice and resonance disorder Home Medications hydrocodone-acetaminophen 5-325mg 5mg-325mg 1 tab PO Q4H PRN PRN Pain 2 days #10 TABLETS 01/29/22 [Rx Last Taken Unknown] Allergy/AdvReac Type Severity Reaction Status Date / Time sulfamethoxazole Allergy Low Verified 03/19/21 12:33 [From Bactrim] neutrophils trimethoprim [From Bactrim] Allergy Low Verified 03/19/21 12:33 neutrophils Family History Mother Cancer Aunt Thyroid disorder Grandfather CVA (cerebral vascular accident) Parkinsons Surgical History History of appendectomy History of oral surgery History of tonsillectomy Social History Smoking Status: Current every day smoker tobacco type: cigarettes alcohol intake: current alcohol intake frequency: a few times a month substance use type: does not use what type of physical activity do you participate in: other ROS ROS ED Constitutional Constitutional ED: Denies chills or fever(s) Musculoskeletal Musculoskeletal: Reports extremity pain; Denies neck pain Integumentary Denies Abrasions, rash or wounds Neurologic Neurologic: Denies paresthesias or weakness EXAM Physical Exam Const Vital Signs: 01/29/22 21:11 Temperature 98.9 F Temperature Source Temporal Pulse Rate 141 H Respiratory Rate 15 Blood Pressure 136/96 H Blood Pressure Mean 109 Pulse Ox 99 Oxygen Delivery Method Room Air Positive well nourished and well developed General Appearance ED: well developed and NAD Neck full ROM and supple Back/Spine normal ROM and normal to inspection Extremity Extremity Narrative: Close deformity of the right mid forearm. 2+/4 radial pulse. Neurovascularly intact distally. Limited range of motion of the elbow and wrist due to pain. No other major trauma to the other 3 extremities, shoulder nontender on the left. Neuro oriented x3, no focal motor deficits and no sensory deficits noted Sensorium / Orientation: alert Psych mental status grossly normal and thought process normal Mood & Affect: tearful Skin no wounds Skin Narrative: Abrasion medial aspect of right lower leg, no bony tenderness, no ankle tenderness. Rashes: no rashes MDM MDM MDM Narrative Medical decision making narrative: X-rays 2 view left forearm on my interpretation shows displaced and overriding both bone mid forearm fracture. Discussed this with orthopedics Dr. Armstrong. He advises splinting the patient in position as is and referring to the office and outpatient schedule outpatient surgery. This was done see the procedure note. She tolerated it well, she was treated with analgesics prior. Procedures Upper Extremity Splints Upper Extremity Splint: Orthoglass and - (Sugar-tong anterior-posterior splint down to the hand, placed elbow at 90 degrees. Neurovascularly intact distally after placement. Tolerated well. No complications.) Splint Fabrication: Fabricated Location: Left Discharge Plan Triage Chief Complaint: Upper Extremity Injury ED Provider: Spencer Hernández Dx/Rx/DC Orders Clinical Impression: Closed fracture of multiple bones of left forearm Instructions: ED Fracture, Upper Extremity Prescriptions: New hydrocodone-acetaminophen [hydrocodone-acetaminophen] 5-325 mg tablet 1 tab PO Q4H PRN PRN (Reason: Pain) 2 Days Qty: 10 0RF Primary Care Provider: Care Physician,No Primary Referrals: Joseph Armstrong DO [Med Staff - Active Staff] - As soon as possible Care Physician,No Primary [Primary Care Provider] - Disposition Disposition: Home, Self Care
[2022-01-29] MEDS: Ondansetron 4 MG/2 ML Vial IV (22:08)
[2022-01-29] MEDS: fentaNYL 100 MCG/2 ML Ampul 50 MCG IV (22:08)
[2022-01-29] MEDS: Morphine 4 MG/ML Syringe IV (22:57)
[2022-01-29 23:17] VITALS: RESP 18
== END 2022-01-29 23:17 | disposition home or self-care (01) ==
PROVIDERS: Emergency Provider Emergency Medicine; Visit Provider Emergency Medicine
DX: S52.332A Displaced oblique fracture of shaft of left radius, initial encounter for closed fracture (principal); S52.232A Displaced oblique fracture of shaft of left ulna, initial encounter for closed fracture; W10.9XXA Fall (on) (from) unspecified stairs and steps, initial encounter; F17.210 Nicotine dependence, cigarettes, uncomplicated
CPT/HCPCS: 29126; 73090; 96374; 96375; 99283; A4216; J2405

== ENCOUNTER 2022-02-04 11:04 | Day surgery (SDC) | payer MEDICAID, SELFPAY ==
[2022-02-04 11:29] VITALS: BP 110/56; PULSE 110; RESP 16; TEMP 36.3; O2SAT 99; BMI 33.6
[2022-02-04] MEDS: Lactated Ringers 1,000 ML 15 ML IV (11:33)
[2022-02-04 11:34] LABS: Internal QC Validated? YES +Cl - CLEAR BKGD; Pregnancy, Urine Negative Negative
[2022-02-04] MEDS: Cefazolin 2 GM in 0.9% Normal Saline 100 ML IV (12:49)
--- NOTE | 2022-02-04 12:50 | RAD_ITS ---
STUDY: X-RAY - LEFT WRIST REASON FOR EXAM: Female, 36 years old. FX TECHNIQUE: 1 view(s) of the wrist were obtained. COMPARISON: 01/29/2022 FINDINGS: Extending across the distal radial ulnar shafts or surgical placement there is anatomic alignment of the fractures RAD/Wrist 2 Views IMPRESSION: ORIF distal radial and ulnar shaft fractures. Electronically Signed: Yanick Perez MD, ANCELMO at 16:53 EDT ,
[2022-02-04 15:19] VITALS: BP 110/56; BP 117/75; PULSE 99; RESP 16; TEMP 36.8; O2SAT 90
--- NOTE | 2022-02-04 15:28 | DCINST_ITS ---
Discharge Instructions Follow Up Care Test Results: Test results from this visit will be discussed in further detail at your follow- up appointment, if applicable. Discharge Plan Admission Primary Reason for Your Visit: Left forearm surgery Attending Provider: Joseph Reece Primary Care Provider: Ewa Mcgowan Primary Instructions Additional Instructions / Restrictions: Follow preprinted instructions from your surgeons office Discharge Orders/Prescriptions Prescriptions: New oxycodone 5 mg tablet 5 mg PO Q4H PRN (Reason: pain) 7 Days Qty: 42 0RF No Action acetaminophen [Tylenol] 325 mg Tablet 650 mg PO Q6H PRN (Reason: PRN) oxycodone-acetaminophen [Percocet] 5-325 mg Tablet 1 - 2 tab PO Q6H PRN (Reason: Pain) Referrals / Follow Up: Care Physician,Ewa Primary [Primary Care Provider] - Disposition Disposition (needs filled in before D/C Order can be placed): Home, Self Care
--- NOTE | 2022-02-04 15:28 | OP.PCM_ITS ---
Report of Operation Date of Procedure: 02/04/22 Description of Surgical Findings:: Preoperative diagnosis: 1. Closed distal transverse third left radial shaft fracture 2. Closed distal transverse third left ulnar shaft fracture Postoperative diagnosis: 1. Closed distal transverse third left radial shaft fracture 2. Closed distal transverse third left ulnar shaft fracture Procedure: 1. Open reduction internal fixation left radial shaft 2. Open reduction internal fixation left ulnar shaft Surgeon: Joseph Reece DO Navy Material Inspector: Lelia Allen PA-C Anesthesia: General endotracheal with axillary block Anesthesiologist: Dr. Hernandez Complications: None Drains: None Estimated blood loss: 50 cc Urinary output: None recorded IV fluids: 1400 cc crystalloid Specimens: None Surgical implants: Synthes 3.5 mm LCDC plate 7 hole x2 with cortical screws x12 Surgical indications: This is a 36-year-old female [id number] who had a fall on an outstretched left hand when she fell off a porch step 01/29/2022. This was an isolated injury. She was seen in the emergency department at [facility] that evening. X-rays revealed a distal third both bone forearm fracture. She was splinted. She followed up in my office 01/31/2022. Patient was neurovascularly intact. There was no concern for compartment syndrome at that time. I recommended surgical intervention in the form of open reduction internal fixation of both the radius and ulna. I reviewed the risks, benefits, alternatives the procedure. Risks included but were not limited to bleeding, infection, loss of life limb, need for additional surgery, nonhealing bone or wounds, compartment syndrome, neurovascular injury, DVT or PE, restricted range of motion, prolonged immobilization, risk of anesthesia. Patient expressed understanding his risk and wished to proceed with surgery. Description of procedure: Patient was seen in preoperative holding area. She was identified by name, medical record number, date of . The operative extremity was marked with a surgical marker. We confirmed informed consent with the patient and all questions were answered to his satisfaction. An axillary block was administered prior to the procedure by anesthesia staff. At time of her procedure, patient was brought to the operative suite and positioned supine on a standard operating table. All bony prominences were well-padded. General anesthesia was administered. After adequate anesthesia and LMA was placed/secured, a well-padded pneumatic tourniquet was applied to the upper arm of the operative extremity. We then spun the bed 90 degrees. We prepped and draped the operative extremity in a normal, sterile orthopedic fashion. We then performed a timeout with all parties in attendance in agreement the side, site, and operation be performed. No concerns were voiced and we elected to proceed. 2 g Ancef was administered for antibiotic prophylaxis prior to the incision by anesthesia staff. I first exsanguinated the operative extremity with an Esmarch bandage. Tourniquet was inflated to 250 mmHg. Esmarch was removed. Tourniquet remained up for approximately 70 minutes. I first turned my attention to the radius. I planned a standard Angel approach to the volar radius. Longitudinal incision was made along the distal third of the forearm in the line connecting the radial styloid to the biceps tendon. Approximately 10 cm full-thickness skin incision was made. I dissected sharply down the level of the fascia. Self-retaining retractors were placed. I opened the volar sheath of the flexor carpi radialis tendon. I split this fascial incision proximally. I retracted the FCR ulnarly. I swept the flexor pollicis longus muscle belly ulnarly as well. This exposed the pronator quadratus which was subperiosteally elevated and its proximal half. Fracture site was encountered. To expose proximally, identified the radial artery and its accompanying veins. Perforating vessels were exposed and cauterized. I mobilized the vessel. The interval between the vessel and the superficial branch of radial nerve was developed radially as well. I then was able to work radially to the vessel identified in the brachial radialis. I bluntly dissected deep identifying the distalmost portion of the pronator teres. I was able to bluntly elevate the distal 1 cm of the pronator teres. I then achieved an anatomic reduction with my production administrative assistant pulling longitudinal traction and using a lobster claw clamps on both bone segments. I then selected a 7 hole 3.5 mm LCDC plate from [employer]. I held this in place with us with the lobster claws. I placed a bicortical cortex screw in the distal segment. I then placed an eccentric bicortical cortex screw in the proximal segment achieving excellent compression across the anatomically reduced radius. C-arm was brought in to confirm anatomic reduction and appropriate hardware positioning. I then drilled for neutral concentric bicortical cortex screws both proximal and distal achieving 3 bicortical cortex screws both proximal and distal to the fracture site. I then turned my attention to the ulna. A standard subcutaneous ulnar approach was planned. Longitudinal incision was made sharply with a 15 blade scalpel through skin and subcutaneous tissue. I elevated the flexor carpi ulnaris from the volar surface of the ulna. Fracture was encountered. I debrided hematoma from the fracture site. I then anatomically reduced the fracture site with a lobster claw clamp. I selected a 7 hole 3.5 mm LCDC plate from [employer]. This was held in place with clamps. In similar fashion of the radius, I drilled a neutral bicortical cortex screw to compress the plate the bone in the distal segment. I then drilled and eccentric compression cortex screw in the proximal segment. This achieved anatomic compression across the fracture site. I then placed additional cortex screws proximal and distal to the fracture site in neutral fashion. I achieved 3 bicortical cortex screws in both the proximal and distal segments. I then brought in fluoroscopy to confirm anatomic reduction and appropriate hardware positioning and size. I brought the forearm through range of motion and was able to passively supinate and pronate the forearm 90 degrees respectively. The DRUJ was then stressed as there appeared to be questionable widening on preoperative films. There was a negative piano lorenz sign and no significant shuck across the DRUJ. I then copiously irrigated the wounds with normal saline solution. Tourniquet was deflated. There was good return of perfusion to the hand. The radial pulse returned without significant bleeding. Hemostasis was excellent. I closed both wounds with buried dermal stitch using a 2-0 Vicryl suture in simple fashion. Skin was finally reapproximated with 3-0 nylon suture with simple sutures in the radial incision and horizontal mattress in the ulnar incision. Skin was under minimal tension. Compartments were soft and compressible. Sterile compression dressing was then applied. A well-padded volar-based short arm splint was applied. Patient was safely extubated in the operative suite after anesthesia was reversed. She was transferred to her gurney and subsequently to PACU in stable condition. Need for skilled production administrative assistant: Lelia Allen PA-C was critical to the outcome of the case. During the course of the procedure the physician production administrative assistant played a vital role. Her intimate knowledge of my steps in the procedure aided in safe and expedient completion of the procedure. The PA played a vital role in positioning particularly in obtaining the appropriate positioning. The PA was also vital in the retraction of soft tissues during the exposure and protecting vital structures. The PA was also vital and obtaining fracture reduction and assisting with hardware placement. She also played a vital role in closure and splint application with my direct supervision. Post Operative Plan: Weightbearing: Nonweightbearing operative extremity Antibiotics: 2 g Ancef x 1 dose preoperatively DVT Prophylaxis: Aspirin 81 mg twice daily starting tomorrow, early mobilization Hernandez: None Dressing: Maintain splint, keep it clean dry and intact until follow-up X-Rays: 2 weeks postop in the office Pain Medication: Oxycodone refill sent to her pharmacy Follow-up: 2 weeks post-operatively with me in the office
[2022-02-04 15:30] VITALS: BP 110/56; BP 113/75; PULSE 100; RESP 16; O2SAT 91
[2022-02-04 15:41] VITALS: BP 109/76; BP 110/56; PULSE 93; RESP 16; TEMP 36.6; O2SAT 92
[2022-02-04 16:16] VITALS: BP 110/56
== END 2022-02-04 16:21 | disposition home or self-care (01) ==
LOC: SDC 11:04 → AC 11:06
PROVIDERS: Anesthesiology; Visit Provider Student in an Organized Health Care Education/Training Program
PROC: (CPT 25575; principal; 2022-02-04 12:15)
DX: S52.322A Displaced transverse fracture of shaft of left radius, initial encounter for closed fracture (principal); S52.602A Unspecified fracture of lower end of left ulna, initial encounter for closed fracture; W17.89XA Other fall from one level to another, initial encounter; F17.210 Nicotine dependence, cigarettes, uncomplicated
CPT/HCPCS: 25575; 01830; 73100; 76000; 81025; C1713; J7120; J2405

== ENCOUNTER → 2022-11-17 | Outpatient (CLI) | payer MEDICAID, SELFPAY ==
[2022-11-21 11:07] LABS: HPV APTIMA, High Risk Negative (Negative)
== END | disposition home or self-care (01) ==
LOC: WOBLAB 11:45
PROVIDERS: Visit Provider Nurse Practitioner Women's Health
DX: Z12.4 Encounter for screening for malignant neoplasm of cervix (principal)
CPT/HCPCS: 87624; 88175; G0145

== ENCOUNTER → 2023-06-08 | Outpatient (CLI) | payer MEDICAID, SELFPAY ==
--- NOTE | 2023-06-08 13:12 | RAD_ITS ---
STUDY: X-RAY - LEFT WRIST REASON FOR EXAM: Female, 37 years old. Wrist pain TECHNIQUE: 4 view(s) of the wrist were obtained. COMPARISON: February 04, 2022 FINDINGS: Plate and screw fixation of the distal radius and ulna with anatomic alignment and callus formation at the fracture sites. Fracture of the distal ulna, unchanged. RAD/Wrist min 3 Views IMPRESSION: Stable ORIF of distal radius and ulna. No complicating features. Electronically Signed: Jacob Comer MD at 13:28 EST ,
--- OUTSIDE RECORDS SUMMARY | 2023-06-08 15:25 | XMS RPT_ITS | CCD ---
Author Name Unknown Address [address] [place] [address] [address] [place] [id number] Organization [facility] Care Team Providers Care Weekday Babysitter Name Role Phone Unavailable Primary Care Provider Unavailabl e Allergies Allergy Classification Reported Allergen(s) Allergy Type Date of Onset Reaction(s) Facility (2 sources) Sulfamethoxazole ; Translations: [SULFAMETHOXAZOL E] Drug Allergy 01-01-2019 Other: See Comments [facility] (2 sources) Trimethoprim; Translations: [TRIMETHOPRIM] Drug Allergy 01-01-2019 Other: See Comments [facility] Medications Current Medications Medication Drug Class(es) Dates Sig (Normalized) Sig (Original) cefdinir 300 mg oral capsule (1 source) Cephalosporin Antibacterial Start: 04-23-2023 End: 04-30-2023 take 1 capsule by mouth twice daily cefdinir (OMNICEF) 300 mg capsule Indications: Acute otitis media, right Take 1 capsule by mouth two times a day for 7 days. 14 capsule 0 04/23/2023 04/30/2023 Active Completed/Discontinued Medications Medication Drug Class(es) Dates Sig (Normalized) Sig (Original) Acetaminophen (1 source) acetaminophen (T YLENOL 8 HOUR ORAL) Take by mouth. 0 Active Problems Problem Classification Problem Date Documented Da te Episodic/Chronic Otitis media and related conditions (1 source) Acute right otitis media; Translations: [Otitis media, unspecified, right ear] 04-23-2023 Episodic Substance-related disorders (1 source) Tobacco dependence syndrome; Translations: [Nicotine dependence, unspecified, uncomplicated] Onset: 03-25-2014 03-25-2014 Chronic Results Test Name Value Interpretation Reference Range Facil ity Vital Signs Date Time Vital Sign Value Performing Clinician Faci lity 04-23-2023 14:42-0500 Body temperature 98.2 [degF] Diana Veronica APRN.INTERFACE ANALYST Work Phone: [facility] 04-23-2023 14:42-0500 Body weight 75.75 kg Diana Veronica APRN.INTERFACE ANALYST Work Phone: [facility] 04-23-2023 14:42-0500 Diastolic blood pressure 90 mm[Hg] Diana Veronica APRN.INTERFACE ANALYST Work Phone: [facility] 04-23-2023 14:42-0500 Heart rate 111 /min Diana Veronica APRN.INTERFACE ANALYST Work Phone: [facility] 04-23-2023 14:42-0500 Respiratory rate 16 /min Diana Veronica APRN.INTERFACE ANALYST Work Phone: [facility] 04-23-2023 14:42-0500 SaO2% (BldA) [Mass fraction] 98 % Diana Veronica APRN.INTERFACE ANALYST Work Phone: [facility] 04-23-2023 14:42-0500 Systolic blood pressure 128 mm[Hg] Diana Veronica APRN.INTERFACE ANALYST Work Phone: [facility] Encounters Encounter Date Encounter Type Care Provider Facility Start: 04-23-2023 End: 04-23-2023 ambulatory Facility:[facility] Start: 04-23-2023 End: 04-23-2023 Patient encounter procedure Diana Veronica APRN.INTERFACE ANALYST Work Phone: [facility] Plan of Treatment Date Care Activity Detail Author Start: 11-05-2026 Urine microalbumin profile DTaP,Tdap,Td Vaccine (2 - Td or Tdap) [facility] Start: 02-03-2023 Influenza vaccination Influenza Vacc ine (#1) [facility] Start: 06-05-2022 Depression Assessment Depression Ass essment [facility] Start: 12-10-2018 Pap Testing Pap Testing [facility] Start: 11-18-2015 HPV Testing HPV Testing [facility] Start: 11-18-2003 Hepatitis C Screening Hepatitis C Sc emili [facility] Start: 11-18-2003 HIV Screening HIV Screening [facility] Start: 11-18-1991 Pneumococcal vaccination Pneum ococcal Vaccine (1 - PCV) [facility] Start: 05-19-1986 Covid-19 Vaccine (#1) Covid-19 Vacci ne (#1) [facility] Start: 1985 Hepatitis B Vaccine (1 of 3 - 3-dose series) Hepatitis B Vaccine (1 of 3 - 3-dose series) [facility] Immunizations Immunization Date Immunization Notes Care Provider Suzie boo 03-02-2009 influenza virus vacc ine, unspecified formulation Diana Veronica APRN.INTERFACE ANALYST Work Phone: [facility] Payers Date Payer Category Payer Medicaid [facility] A[facility] MEDICAID [id number] 2022-Present [phone] [address] [place] [address] Medicaid [id number] 2022 Medicaid [id number] Social History Date Type Detail Facility [facility] Start: 06-25-2003 History of tobacco use Cigarette Smo ker [facility] Start: 05-11-2020 End: 01-17-2022 Cigarettes smoked current (pack per day) - Reported 0.5 [facility] Start: 01-17-2022 Tobacco use and exposure Smoke less tobacco non-user [facility] Start: 04-23-2023 Alcohol intake Current drinke r of alcohol (finding) [facility] Start: 05-11-2020 End: 04-23-2023 Tobacco use panel [facility] National Score (1-10 0), lower number is lower risk Not on file [facility] Start: 03-25-2014 [facility] Start: 1985 Sex Assigned At Not on file [facility] Progress note 04-23-2023 Note Date & Type Note Facility 04-23-2023 Note HNO ID: [id number] Author: Diana Veronica APRN.INTERFACE ANALYST Service: ? Author Type: Nurse Practitioner Type: Progress Notes Filed: 04/23/2023 2:56 PM Note Text: This note was created using NoteWriter. Subjective Alma Delia Haynes is a 37 year old female here for right ear pain. Patient reports she was treated for OM 2 weeks ago with amox however she did not complete it because it made her throw up. Objective BP 128/90 Pulse 111 Temp 36.8 ?C (98.2 ?F) Resp 16 Wt 75.8 kg (167 lb) LMP 01/11/2021 SpO2 98% BMI 32.61 kg/m? Physical Exam PHYSICAL EXAMINATION: General appearance: Well appearing, alert, in no acute distress, well-hydrated, well nourished. Ears: Positive findings: erythema and edema of ear canal: on right Assessment and Plan Problem List Items Addressed This Visit None Visit Diagnoses Acute otitis media, right - Primary Relevant Medications cefdinir (OMNICEF) 300 mg capsule [facility] History of Present illness Narrative 04-23-2023 Diana Veronica APRN.INTERFACE ANALYST - 04/23/2023 2:50 PM EST Note Date & Type Note Facility 04-23-2023 History of Presen t illness Narrative This note was created using [employer]. Subjective Alma Delia Haynes is a 37 year old female here for right ear pain. Patient reports she was treated for OM 2 weeks ago with amox however she did not complete it because it made her throw up. Objective BP 128/90 Pulse 111 Temp 36.8 C (98.2 F) Resp 16 Wt 75.8 kg (167 lb) LMP 01/11/2021 SpO2 98% BMI 32.61 kg/m Physical Exam PHYSICAL EXAMINATION: General appearance: Well appearing, alert, in no acute distress, well-hydrated, well nourished. Ears: Positive findings: erythema and edema of ear canal: on right Assessment and Plan Problem List Items Addressed This Visit None Visit Diagnoses Acute otitis media, right - Primary Relevant Medications cefdinir (OMNICEF) 300 mg capsule documented in this encounter [facility] Evaluation note Note Date & Type Note Facility documented in this encounter [facility] Summary Purpose Family History No Family History Records Found Advance Directives No Advanced Directives Records Found Additional Source Comments Source Comments (unrecognize d section and content) In the event this informatio n is protected by the Federal Confidentiality of Alcohol and Drug Abuse Patient Records regulations: The Federal rules restrict any use of the information to criminally investigate or prosecute any alcohol or drug abuse patient.[facility] Reason for Visit (unrecogniz ed section and content) INFORMATION SOURCE (unrecogn ized section and content) FOR RECORDS PERTAINING TO PATIENTS WHO ARE OR HAVE BEEN ENROLLED IN A CHEMICAL DEPENDENCY/SUBSTANCEABUSE PROGRAM, SOME INFORMATION MAY BE OMITTED. This clinical summary was aggregated from multiple sources. Caution should be exercised in using it in the provision of clinical care. This summary normalizes information from multiple sources, and as a consequence, information in this document may materially change the coding, format and clinical context of patient data. In addition, data may be omitted in some cases. CLINICAL DECISIONS SHOULD BE BASED ON THE PRIMARY CLINICAL RECORDS. [facility]. provides no warranty or guarantee of the accuracy or completeness of information in this document.
== END | disposition home or self-care (01) ==
LOC: MTRAD 13:12
PROVIDERS: Referring Provider Physician Assistant Surgical; Visit Provider Physician Assistant Surgical
DX: S66.912A Strain of unspecified muscle, fascia and tendon at wrist and hand level, left hand, initial encounter (principal)
CPT/HCPCS: 73110

== ENCOUNTER → 2023-06-08 | Outpatient (CLI) | payer MEDICAID, SELFPAY ==
--- NOTE | 2023-06-08 16:41 | CT_ITS ---
STUDY: CT LEFT UPPER EXTREMITY / FOREARM REASON FOR EXAM: Female, 37 years old. left wrist include forearm -- left wrist include forearm - eval fracture pattern RADIATION DOSAGE (If Supplied By Facility): CTDIvol = ( 24.58 ) mGy, DLP = ( 701.96 ) mGycm TECHNIQUE: High resolution transaxial imaging was performed without the administration of intravenous contrast material. Multiplanar coronal, sagittal images and 3-D were reformatted. Individualized dose optimization techniques were used for this CT. COMPARISON: None. FINDINGS: There is a fixation plate through the mid distal radial and ulnar shaft. There is acute comminuted fracture involving the distal ulna including the ulnar styloid process. There is a subtle, slightly oblique fracture of indeterminate age involving the distal radial shaft, crossing the distal screw through the distal fixation plate. Remainder of the radius is normal. CT/Extremity Upper without Contra IMPRESSION: Acute comminuted fracture of the distal ulna at the diaphyseal metaphyseal junction and involving the ulnar styloid process. Slightly oblique fracture involving the distal radial shaft traversing the area of fixation screw of the distal plate of exact age indeterminate. No other fractures are seen. Electronically Signed: Mirtha Whittaker MD at 17:08 EST ,
--- OUTSIDE RECORDS SUMMARY | 2023-06-08 18:53 | XMS RPT_ITS | CCD ---
Author Name Unknown Address [address] [place] [address] [address] [place] [id number] Organization [facility] Care Team Providers Care Obstetrics Tech Name Role Phone Unavailable Primary Care Provider Unavailabl e Allergies Allergy Classification Reported Allergen(s) Allergy Type Date of Onset Reaction(s) Facility (2 sources) Sulfamethoxazole ; Translations: [SULFAMETHOXAZOL E] Drug Allergy 01-01-2019 Other: See Comments [facility] (2 sources) Trimethoprim; Translations: [TRIMETHOPRIM] Drug Allergy 01-01-2019 Other: See Comments [facility] Medications Current Medications Medication Drug Class(es) Dates [...] 14:42-0500 Body temperature 98.2 [degF] Diana Veronica APRN.[employer]ATH [employer]UTION [employer]KER Work Phone: [facility] 04-23-2023 14:42-0500 Body weight 75.75 kg Diana Veronica APRN.[employer] Work Phone: [facility] 04-23-2023 14:42-0500 Diastolic blood pressure 90 mm[Hg] Diana Veronica APRN.[employer] Work Phone: [facility] 04-23-2023 14:42-0500 Heart rate 111 /min Diana Veronica APRN.[employer]UTION [employer] Work Phone: [facility] 04-23-2023 14:42-0500 Respiratory rate 16 /min Diana Veronica APRN.[employer]ATH SOLUTION [employer] Work Phone: [facility] 04-23-2023 14:42-0500 SaO2% (BldA) [Mass fraction] 98 % Diana Veronica APRN.[employer]ATH SOLUTION [employer]ER Work Phone: [facility] 04-23-2023 14:42-0500 Systolic blood pressure 128 mm[Hg] Diana Veronica APRN.[employer]ATH SOLUTION [employer]ER Work Phone: [facility] Encounters Encounter Date Encounter Type Care Provider Facility Start: 04-23-2023 End: 04-23-2023 ambulatory Facility:[facility] Start: 04-23-2023 End: 04-23-2023 Patient encounter procedure Diana Veronica APRN.[employer]ATH [employer]UTION [employer]KER Work Phone: [facility] Plan of Treatment Date Care Activity Detail Author Start: 11-05-2026 Urine microalbumin profile DTaP,Tdap,Td Vaccine (2 - Td or Tdap) [facility] Start: 02-03-2023 Influenza vaccination Influenza Vacc ine (#1) [facility] Start: 06-05-2022 Depression Assessment Depression Ass essment [facility] Start: 12-10-2018 Pap Testing Pap Testing [facility] Start: 11-18-2015 HPV Testing HPV Testing [facility] Start: 11-18-2003 Hepatitis C Screening Hepatitis C Sc emili [facility] Start: 11-18-2003 HIV Screening HIV Screening [facility] Start: 11-18-1991 Pneumococcal vaccination Pneum ococcal Vaccine (1 - PCV) [facility] Start: 05-19-1986 Covid-19 Vaccine (#1) Covid-19 Vacci ne (#1) [facility] Start: 1985 Hepatitis B Vaccine (1 of 3 - 3-dose series) Hepatitis B Vaccine (1 of 3 - 3-dose series) [facility] Immunizations Immunization Date Immunization Notes Care Provider Suzie boo 03-02-2009 influenza virus vacc ine, unspecified formulation Diana Veronica APRN.[employer] Work Phone: [facility] Payers Date Payer Category Payer [facility] MEDICAID [id number] 2022-Present [phone] [address] [place] [address] Medicaid [id number] 2022 Medicaid [id number] Social History Date Type Detail Facility Start: [facility] Start: 06-25-2003 History of tobacco use Cigarette Smo ker [facility] Start: 05-11-2020 End: 01-17-2022 Cigarettes smoked current (pack per day) - Reported 0.5 [facility] Start: 01-17-2022 Tobacco use and exposure Smoke less tobacco non-user [facility] Start: 04-23-2023 Alcohol intake Current drinke r of alcohol (finding) [facility] Start: 05-11-2020 End: 04-23-2023 Tobacco use panel [facility] National Score (1-10 0), lower number is lower risk Not on file [facility] Start: 03-25-2014 [facility] Start: 1985 Sex Assigned At Not on file [facility] Progress note 04-23-2023 Note Date & Type Note Facility 04-23-2023 Note HNO ID: [id number] Author: Diana Veronica APRN.[employer] Service: ? Author Type: Nurse Practitioner Type: [...] Relevant Medications cefdinir (OMNICEF) 300 mg capsule [facility] History of Present illness Narrative 04-23-2023 Diana Veronica APRN.[employer]ATH SOLUTION [employer]KER - 04/23/2023 2:50 PM EST Note Date & Type Note Facility 04-23-2023 History of Presen t illness Narrative This note was created using [employer]. Subjective Alma Delia Haynes is a 37 [...] 300 mg capsule documented in this encounter [facility] Evaluation note Note Date & Type Note Facility documented in this encounter [facility] Summary Purpose Family History No Family History [...] or prosecute any alcohol or drug abuse patient.[facility] Reason for Visit (unrecogniz ed section and [...] BE BASED ON THE PRIMARY CLINICAL RECORDS. [facility]. provides no warranty or guarantee of the accuracy or completeness of information in this document.
== END | disposition home or self-care (01) ==
LOC: CT 16:39
PROVIDERS: Referring Provider Orthopaedic Surgery Sports Medicine; Visit Provider Orthopaedic Surgery Sports Medicine
DX: S52.602A Unspecified fracture of lower end of left ulna, initial encounter for closed fracture (principal); S66.912A Strain of unspecified muscle, fascia and tendon at wrist and hand level, left hand, initial encounter
CPT/HCPCS: 73110; 73200

== ENCOUNTER 2024-11-06 11:14 | Inpatient (IN) | payer MEDICAID, SELFPAY ==
[2024-11-06] VITALS (19 sets, daily range): BP systolic 85–125; BP diastolic 49–84; PULSE 98–132; RESP 16–28; TEMP 36.7–39.4; O2SAT 88–100; BMI 23.3; BMI 24.0
[2024-11-06] MEDS: 0.9% Normal Saline (1000mL) 1,000 ML 1000 ML IV ×2 (11:47→14:14)
[2024-11-06] MEDS: Ondansetron 4 MG/2 ML Vial IV ×3 (11:55→22:04)
--- NOTE | 2024-11-06 11:55 | RAD_ITS ---
PROCEDURE: CHEST PA AND LATERAL 11/06/2024 REASON FOR EXAM: COUGH, FEVER, WHEEZING TECHNIQUE: Frontal and lateral views of the chest. COMPARISON: AP chest of 01/02/2019. RAD/Chest PA and Lateral IMPRESSION: Lungs are relatively hypoinflated, but appear clear of acute disease. No pleural effusion or pneumothorax is noted. The cardiomediastinal silhouette is within the normal range. Mild thoracic spine dextroscoliosis is seen, with mild degenerative changes pre sent. No acute osseous changes seen. Reading Location: [id number]
--- NOTE | 2024-11-06 12:02 | EX.ED.DYSGE1 ---
HPI History of Present Illness Chief Complaint: Shortness of Breath Detail of Chief Complaint: Shortness of breath, nonproductive cough presently, documented Tmax 105.0 ? Informant: patient and spouse/S.O. Onset/Context/Timing Onset: Weeks (Onset of illness approximately 3 weeks ago) Context: Sudden Onset Timing: Continuous and Waxes and wanes Quality: Cough, wheezing, fever Location: Respiratory Current Severity: Mild Maximum Severity: Severe Worsened by: Nothing specific Relieved by: Nothing Associated Symptoms Associated Symptoms: Per HPI narrative Narrative Narrative: Patient is a 38-year-old female. She has been ill for approximately 3 weeks. She initially had a productive cough of colored sputum. Her cough is now nonproductive. She completed a course of doxycycline 3 days ago. In spite of completing the antibiotic she continues to have fevers. Fevers been waxing and waning for the past 3 weeks. She does report mild congestion. Denies headache. Denies ear pain. She does report mild shortness of breath with cough. She denies chest discomfort. She denies history of VTE. She denies leg pain, swelling discoloration other than the bruising from falling yesterday. She denies GI or symptoms. She is a smoker. She was seen at the [facility] urgent care and diagnosed with a clinical pneumonia. Prior similar symptoms: Yes Recent Illness/Hospitalization: Yes PFSH [facility] Medical History Anemia Migraine headache Gastric reflux Hoarseness Hx of sepsis Smoker Abnormal results of thyroid function studies Malaise and fatigue Unspecified voice and resonance disorder Hair loss Insomnia Home Medications ?Medication ?Instructions ?Recorded ?Last Taken ?Type NK 11/06/24 Unknown History Allergy/AdvReac Type Severity Reaction Status Date / Time sulfamethoxazole (From Allergy Low Verified 11/06/24 11:15 Bactrim) neutrophils trimethoprim (From Bactrim) Allergy Low Verified 11/06/24 11:15 neutrophils Family History Mother Cancer Aunt Thyroid disorder Grandfather CVA (cerebral vascular accident) Parkinsons Surgical History Hx of foot surgery History of oral surgery History of appendectomy History of tonsillectomy Social History (Updated 11/06/24 @ 12:17 by Marilyn Gramajo) household members: significant other current occupational status: employed Smoking Status: Current every day smoker tobacco type: cigarettes alcohol intake: current alcohol intake frequency: a few times a month substance use type: does not use what type of physical activity do you participate in: other ROS ROS ED Constitutional Constitutional ED: Reports chills, fever(s) and sweats; Denies subjective or weight loss Eyes Eyes: Denies blurry vision or change in vision ENT ENT ED: Reports sore throat; Denies ear pain or rhinorrhea Cardiovascular Cardiovascular: Denies chest pain, orthopnea, palpitations or paroxysmal nocturnal dyspnea Respiratory/Chest Respiratory/Chest: Reports cough and dyspnea; Denies dyspnea on exertion, orthopnea, paroxysmal nocturnal dyspnea or sputum Gastrointestinal Gastrointestinal: Reports nausea; Denies abdominal pain or vomiting Genitourinary Genitourinary ED: Denies dysuria, hematuria or urinary frequency Musculoskeletal Musculoskeletal: Reports arthralgias and myalgias; Denies back pain Integumentary Denies rash Neurologic Neurologic: Reports weakness; Denies headache(s) or paresthesias Endocrine Endocrinology: Reports cold intolerance and heat intolerance Hematologic/Lymphatic Hematologic/Lymphatic: Reports systems reviewed and no addt'l complaints, except as documented EXAM Physical Exam Const Vital Signs: 11/06/24 11:15 11/06/24 12:07 11/06/24 12:16 Temperature 98.4 F 98.1 F Temperature Source Oral Oral Pulse Rate 117 H 102 H 103 H Respiratory Rate 16 16 18 Respiratory Depth Respiratory Pattern Normal Blood Pressure 94/64 85/49 L Blood Pressure Mean 74 61 Pulse Ox 98 98 Oxygen Delivery Method Room Air 11/06/24 12:18 11/06/24 13:14 11/06/24 15:00 Temperature Temperature Source Pulse Rate 98 100 Respiratory Rate 17 17 Respiratory Depth Normal Respiratory Pattern Normal Blood Pressure 94/66 100/61 Blood Pressure Mean 75 74 Pulse Ox 99 96 Oxygen Delivery Method Room Air Room Air Positive well nourished and well developed General Appearance ED: well developed and NAD; Negative for cyanotic, diaphoretic or pallor HEENT Reports dry mucous membranes Negative for trauma or tenderness Mouth ED: Yes dry mucous membranes Mouth: dry mucous membranes Eyes PERRL and EOMs intact bilaterally General Eye ED: Negative for pale conjunctiva or scleral icterus Neck no lymphadenopathy, supple and no JVD Chest Wall inspection of chest normal and palpation of chest normal Resp normal respiratory effort Auscultation: wheezes expiratory wheezes and scattered wheezes (Predominantly lower lung anne) Cardio regular rhythm, S1 normal heart sound, S2 normal heart sound and no murmurs Rate: tachycardic GI normal to inspection, nondistended, normoactive bowel sounds, non-tender, non-distended and no masses; Negative for hepatosplenomegaly Back/Spine no CVA tenderness Extremity normal to inspection General Extremety ED: Negative for edema or tenderness General Extremity: Negative for edema Neuro oriented x3 and CN's II-XII intact bilaterally Sensorium / Orientation: alert Psych mental status grossly normal Skin Skin Narrative: Patient has a lenticular rash. Capillary refill is delayed. General Skin Exam: Negative for jaundice or pallor MDM MDM MDM Narrative Medical decision making narrative: The patient having symptoms for 3 weeks fever up to 105 with mild arthralgias may represent a viral infection recent antibiotics did not help. Since she is tachycardic mottled with delayed capillary fill 1 L of normal saline was ordered. Sepsis workup was undertaken. Because she is wheezing albuterol was ordered. Patient was seen by orthopedics in 2023 and for wrist problems by Dr. Nitin Scott and Dr. Reece respectively. She was seen by Dr. Shiva Knott for thyroid abnormality. She was seen by me February 2019 for cat bite. And she was admitted in January 2019 for adverse drug reaction and Dr. Arndt's note was reviewed. History & Record Review Additional record(s) reviewed:: Prior inpatient record, Prior outpatient record, Prior ED visit and Prior labs Lab Data Attestation: I reviewed the patient's lab results. Lab results narrative: CBC is normal. Differential reveals a mild shift. H&H is 9.2 and 27.3 with normal indices. Most recent hemoglobin was 13 5 and 38.7 on January 03, 2019. Lactate is less than 1. Electrolyte panel is unremarkable. Liver enzymes are slightly elevated 74 and 42. Alkaline phosphatase elevated at 429. Labs: Laboratory Results - last 24 hr 11/06/24 11:49 WBC 5.1 RBC 3.08 L Hgb 9.2 L Hct 27.3 L MCV 88.6 MCH 29.9 MCHC 33.7 RDW Std Deviation 50.0 H RDW Coeff of Deb 15.5 H Plt Count 155 MPV 11.0 Immature Gran % (Auto) 0.400 Neut % (Auto) 90.1 H Lymph % (Auto) 4.9 L [place] % (Auto) 3.4 Eos % (Auto) 1.0 Baso % (Auto) 0.2 Absolute Neuts (auto) 4.6 Absolute Lymphs (auto) 0.25 L Nucleated RBC % 0 Sodium 135 Potassium 2.8 L Chloride 100 Carbon Dioxide 21.8 Anion Gap 13 BUN 13 Creatinine 0.80 Estim Creat Clear Calc 68.49 Est GFR (MDRD) Non-Af 97 BUN/Creatinine Ratio 16.6 Glucose 105 H Lactic Acid < 1.0 Calcium 9.0 Total Bilirubin 0.45 AST 74 H ALT 42 H Alkaline Phosphatase 429 H Total Protein 6.5 Albumin 3.2 L Globulin 3.3 Albumin/Globulin Ratio 1.0 Rapid antigen for COVID, RSV and influenza was negative. Radiography Chest X-Ray - ED: 2 View and Read by ED Physician (Independently reviewed interpreted by me 46 as negative for any acute process. Question may be some increased interstitial markings near the right heart border. Cardiac size is normal. Hilum is normal. There is no evidence of obvious infiltrate, effusion. There is no pneumothorax. Osseous stru) Diagnostic Testing: Clinical Impression(s) from Imaging Studies Chest X-Ray 11/06/24 11:55 IMPRESSION: Lungs are relatively hypoinflated, but appear clear of acute disease. No pleural effusion or pneumothorax is noted. The cardiomediastinal silhouette is within the normal range. Mild thoracic spine dextroscoliosis is seen, with mild degenerative changes present. No acute osseous changes seen. Reading Location: [address] Management Discussion w/another healthcare provider: Hospitalist (Case discussed with hospitalist. Full admit PCU. Antibiotics were changed after discussion with Dr. Shayy Dodson) Treatment and Re-Evaluation :: Patient was reassessed at 1350. First liter is infused. Her blood pressure is lower. Her systolic is 87. Second liter was ordered wide open. Comments:: Patient was reassessed at 1500. Blood pressure is 106. Pulse ox is 90 to 93% with a good waveform. Amatory pulse ox was ordered. Vital Sign Attestation:: Patient pulse ox was 80% with ambulation. In light of the fact that she had a normal chest x-ray is hypoxic now and has had tachycardia CTA of the chest was obtained to rule out PE. CTA of the chest reveals multilobar pneumonia. Initially ordered Rocephin and azithromycin. After speaking with the hospitalist Dr. Dodson she requested levofloxacin. Critical Care Time Critical Care Time: Yes Critical care time (excluding procedures): 30-74 minutes (32), Including time spent: (History, physical, documentation, independent rotation laboratory results chest x-ray and CT, numerous repeat evaluations and treatment for hypotension), Discussing w/Patient &/or Family/Machine Adjuster, Discussing w/Consultants and Arranging Admission or Transfer Discharge Plan Triage Chief Complaint: Shortness of Breath ED Provider: Parish Frias Dx/Rx/DC Orders Clinical Impression: Bilateral interstitial pneumonia, Acute hypotension, Hypoxia, Rigors Prescriptions: No Action NK Primary Care Provider: Care Physician,No Primary Referrals: Care Physician,No Primary [Primary Care Provider] - Print Language: German Disposition Disposition: Acute Care Hospital [facility]
[2024-11-06] MEDS: Albuterol 2.5 MG/3 ML VIAL.NEB. INHALATION (12:05)
[2024-11-06 12:23] LABS: Absolute Lymphocyte Count 0.25 X10^3/uL (0.83-4.51); Absolute Neutrophil Count 4.6 X10^3/uL (2.0-7.7); Basophil# 0.01 X10^3/uL; Basophil% 0.2 % (0-1); Eosinophil# 0.05 X10^3/uL; Hematocrit 27.3 % (37-47); Hemoglobin 9.2 g/dL (12.0-15.0); Lymphocyte # 0.25 X10^3/ul (0.83-4.51); Lymphocyte % 4.9 % (19-41); Mean Corp Hgb Conc 33.7 g/dL (32-36); Mean Corpuscular Hgb 29.9 pg (27.0-32.0); Mean Corpuscular Volume 88.6 fL (81-99); Monocyte# 0.17 X10^3/uL; Monocyte% 3.4 % (0-10); NRBC Flagged by Analyzer 0 % (0-5); Neutrophil # 4.56 X10^3/uL (2.7-7.7); Neutrophil % 90.1 % (47-70); POSITIVE DIFFERENTIAL YES; Platelet Count 155 K/mm3 (150-450); RBC Distribution Width CV 15.5 % (11.6-14.6); Red Blood Count 3.08 M/mm3 (4.2-5.4); White Blood Count 5.1 K/mm3 (4.4-11.0)
[2024-11-06 12:36] LABS: AST(SGOT) 74 U/L (<=31); Alanine Aminotransfer ALT/SGPT 42 U/L (<=34); Albumin, Serum 3.2 g/dL (3.5-5.0); Alkaline Phosphatase 429 U/L (35-104); Anion Gap 13 (5-15); BUN 13 mg/dL (4-19); BUN/Creat Ratio 16.6 RATIO (10-20); Carbon Dioxide 21.8 mmol/L (21.0-32.0); Chloride 100 mmol/L (98-108); EST Glomerular Filtration Rate 97 (>60); Estimated Creatinine Clearance 68.49 ml/min (50-250); Globulin 3.3 g/dL (2.2-4.2); Glucose 105 mg/dL (70-99); Lactic Acid < 1.0 mmol/L (0.0-2.0); Potassium 2.8 mmol/L (3.3-5.1); Protein, Total 6.5 g/dL (5.9-8.4); Sodium Level 135 mmol/L (133-145); Total Bilirubin 0.45 mg/dL (0.00-1.30)
--- NOTE | 2024-11-06 15:06 | CT_ITS ---
EXAM: CT Angiography Chest Without and With Intravenous Contrast CLINICAL INDICATION: SHORTNESS OF BREATH, HYPOXIA, HISTORY OF SMOKING A TECHNIQUE: Axial computed tomographic angiography images of the chest without and with intravenous contrast. This CT exam was performed using one or more of the following dose reduction techniques: automated exposure control, adjustment of the mA and/or kV according to patient size, and/or use of iterative reconstruction technique. MIP reconstructed images were created and reviewed. COMPARISON: No relevant prior studies available. FINDINGS: LIMITATIONS: Suboptimal opacification of the pulmonary arteries. PULMONARY ARTERIES: No pulmonary embolism is identified. Some of the distal pulmonary arteries cannot be evaluated due to suboptimal opacification. AORTA: No acute findings. No thoracic aortic aneurysm. LUNGS AND PLEURAL SPACES: Multifocal ground-glass attenuation of both lungs, likely multifocal pneumonia. No mass. No significant effusion. HEART: Unremarkable. No cardiomegaly. No significant pericardial effusion. No evidence of RV dysfunction. BONES/JOINTS: No acute fracture. No dislocation. SOFT TISSUES: Unremarkable. LYMPH NODES: Unremarkable. No enlarged lymph nodes. CT/CTA Chest W/WO Contrast IMPRESSION: 1. No pulmonary embolism is identified. Some of the distal pulmonary arteries cannot be evaluated due to suboptimal opacification. 2. Multifocal ground-glass attenuation of both lungs, likely multifocal pneumo ar. Reading Location: [id number]
--- NOTE | 2024-11-06 15:49 | PCM.HP.STD ---
HPI - General General Date of Admission: 11/06/24 Date of Service: 11/06/24 Chief Complaint: Shortness of breath HPI Narrative ALMA DELIA HAYNES, is a 38 F who presented to the emergency department [facility] on 11/06/2024 with a chief complaint of shortness of breath, nonproductive cough and fevers. She reports her Tmax at home has been 105 degrees. She reports that she has been acutely ill for about 3 weeks but has been feeling poorly for about 4 months. She states she has had intermittent fevers and cough. She sought attention for the first time for the symptoms about 3 weeks ago at which time she was prescribed doxycycline. She completed the antibiotic course 3 days ago but continues to feel poorly. She has had weight loss due to decreased appetite, fevers, chills, rigors, mild congestion and cough that has been productive up into the last 24 hours or so. She does not have a family history of autoimmune disease. She denies any rashes but does complain of myalgias particularly in her legs. Vital signs on presentation showed a temperature of 98.4, heart rate 117, respiratory 16, blood pressure was 94/64 and pulse ox was 98% on room air initially. CBC shows a normal white count but it does show an anemia with a hemoglobin of 9.2. Baseline recently is unclear. She has a history of thrombocytopenia but currently her platelet count is elevated at 155,000. Chemistry panel shows significant hypokalemia with potassium of 2.8 but was otherwise unremarkable. Lactic acid was less than 1. LFTs are slightly abnormal with an AST of 74 and an ALT of 42. Alk phos is elevated at 429,000. Chest x-ray was overtly unremarkable. CTA was performed due to her symptoms and showed no PE but multifocal ground glass attenuation in both lungs consistent with multifocal pneumonia. She was treated with Levaquin emergency department and request for admission was made. [facility] Medical History Anemia Migraine headache Gastric reflux Hoarseness Hx of sepsis Smoker Abnormal results of thyroid function studies Malaise and fatigue Unspecified voice and resonance disorder Hair loss Insomnia Home Medications ?Medication ?Instructions ?Recorded ?Last Taken ?Type NK 11/06/24 Unknown History Allergy/AdvReac Type Severity Reaction Status Date / Time sulfamethoxazole (From Allergy Low Verified 11/06/24 11:15 Bactrim) neutrophils trimethoprim (From Bactrim) Allergy Low Verified 11/06/24 11:15 neutrophils Family History Mother Cancer Aunt Thyroid disorder Grandfather CVA (cerebral vascular accident) Parkinsons Surgical History Hx of foot surgery History of oral surgery History of appendectomy History of tonsillectomy Social History household members: significant other current occupational status: employed Smoking Status: Current every day smoker tobacco type: cigarettes alcohol intake: current alcohol intake frequency: a few times a month substance use type: does not use what type of physical activity do you participate in: other ROS Constitutional Constitutional: Reports anorexia, change in weight, chills, fatigue, fever(s), malaise, night sweats and weakness Eyes Eyes: Denies blurry vision, change in eye color, change in vision, discharge from eye(s), double vision, erythema, eye pain, loss of vision or other ENT HEENT: Reports nasal congestion; Denies abnormal hearing, dysphagia, ear pain, epistaxis, headache(s), hearing loss, nasal discharge, post nasal drip, sinus pressure, sore throat or other Cardiovascular Cardiovascular: Reports dyspnea on exertion; Denies chest pain, claudication, edema, lightheadedness, orthopnea, palpitations, paroxysmal nocturnal dyspnea, rapid heart rate, syncope or other Respiratory/Chest Respiratory/Chest: Reports cough, dyspnea, excessive phlegm production, productive cough, shortness of breath at rest, shortness of breath with exertion and wheezing; Denies hemoptysis or other Gastrointestinal Gastrointestinal: Reports nausea; Denies abdominal pain, coffee ground emesis, constipation, diarrhea, dyspepsia, hematemesis, hematochezia, loose stools, melena, vomiting or other Genitourinary Genitourinary: Denies burning urination, difficulty urinating, dysuria, hematuria, nocturia, urinary frequency, urinary hesitancy, urinary incontinence, urinary urgency or other Musculoskeletal Musculoskeletal: Reports myalgias; Denies arthralgias, back pain, joint pain, joint stiffness, joint swelling, neck pain or other Neurologic Neurologic: Denies abnormal gait, abnormal speech, confusion, disequilibrium, dizziness, focal weakness, headache(s), numbness, paresthesias, seizure-like activity, seizures, syncope, tingling, tremor(s) or other Psychiatric Psychiatric: Denies anxiety, depression, homicidal ideation, suicidal ideation or other Endocrine Endocrinology: Denies change in body appearance, cold intolerance, excessive sweating, heat intolerance, polydipsia, polyuria or other Hematologic/Lymphatic Hematologic/Lymphatic: Denies anemia, easy bleeding, easy bruising, lymphadenopathy or other Allergic/Immunologic Allergic/Immunologic: Denies rhinitis, hives, eczemia, asthma or other Vital Signs Vital Signs Vital Signs: 11/06/24 11:15 11/06/24 12:07 11/06/24 12:16 Temperature 98.4 F 98.1 F Temperature Source Oral Oral Pulse Rate 117 H 102 H 103 H Respiratory Rate 16 16 18 Respiratory Depth Respiratory Pattern Normal Blood Pressure 94/64 85/49 L Blood Pressure Mean 74 61 Pulse Ox 98 98 Oxygen Delivery Method Room Air 11/06/24 12:18 11/06/24 13:14 11/06/24 15:00 Temperature Temperature Source Pulse Rate 98 100 Respiratory Rate 17 17 Respiratory Depth Normal Respiratory Pattern Normal Blood Pressure 94/66 100/61 Blood Pressure Mean 75 74 Pulse Ox 99 96 Oxygen Delivery Method Room Air Room Air Weight Weight: 54.1 kg Body Mass Index (BMI) 23.3 Physical Exam Const alert, oriented x3 and average body habitus; Negative for no apparent distress or healthy appearing Constitutional Narrative: Ill-appearing, middle-aged, white female, appears older than stated age, lying in bed, currently has rigors, appears toxic, significant other at bedside General Appearance: cooperative HEENT normocephalic, head/scalp atraumatic, hearing grossly normal bilaterally and moist oral mucous membranes HEENT Narrative: Mallampati 2, no thrush Eyes conjunctivae normal Eyes Narrative: No scleral icterus, conjunctiva are mildly pale bilateral Neck supple Neck Narrative: Trachea midline Resp no retractions, no use of accessory muscles and No clear to auscultation bilaterally Resp Narrative: , Tachypneic scattered crackles and end expiratory wheezes with adventitious sounds noted throughout Auscultation: crackles and wheezes; Negative for rhonchi Cardio regular rhythm, S1 normal heart sound, S2 normal heart sound, no murmurs, no rub, no gallops and no clicks Cardio Narrative: Tachycardia GI normal to inspection, nondistended, normoactive bowel sounds and soft to palpation Extremity no clubbing, cyanosis or edema Extremity Narrative: 2+ pedal and radial pulses Neuro oriented x3, moves all extremities and no focal motor deficits Neuro Narrative: Appears generally weak Speech: speech normal Psych Psych Narrative: Affect is flat but appropriate for current situation Results Lab / Micro Data 11/06/24 11:49 11/06/24 11:49 Labs: Laboratory Results - last 24 hr 11/06/24 11:49: WBC 5.1, RBC 3.08 L, Hgb 9.2 L, Hct 27.3 L, MCV 88.6, MCH 29.9, MCHC 33.7, RDW Std Deviation 50.0 H, RDW Coeff of Deb 15.5 H, Plt Count 155, MPV 11.0, Immature Gran % (Auto) 0.400, Neut % (Auto) 90.1 H, Lymph % (Auto) 4.9 L, [place] % (Auto) 3.4, Eos % (Auto) 1.0, Baso % (Auto) 0.2, Absolute Neuts (auto) 4.6, Absolute Lymphs (auto) 0.25 L, Nucleated RBC % 0, Sodium 135, Potassium 2.8 L, Chloride 100, Carbon Dioxide 21.8, Anion Gap 13, BUN 13, Creatinine 0.80, Estim Creat Clear Calc 68.49, Est GFR (MDRD) Non-Af 97, BUN/Creatinine Ratio 16.6, Glucose 105 H, Lactic Acid < 1.0, Calcium 9.0, Total Bilirubin 0.45, AST 74 H, ALT 42 H, Alkaline Phosphatase 429 H, Total Protein 6.5, Albumin 3.2 L, Globulin 3.3, Albumin/Globulin Ratio 1.0 Micro: Microbiology 11/06/24 11:49 Mucosa - Nose SARS-CoV-2, Influenza & RSV (PCR) - Final Imaging Radiology Impression Chest X-Ray 11/06/24 11:55 IMPRESSION: Lungs are relatively hypoinflated, but appear clear of acute disease. No pleural effusion or pneumothorax is noted. The cardiomediastinal silhouette is within the normal range. Mild thoracic spine dextroscoliosis is seen, with mild degenerative changes present. No acute osseous changes seen. Reading Location: [address] Assessment & Plan Assessment/Plan (1) Hypoxia: (2) Acute hypotension: (3) Bilateral interstitial pneumonia: (4) Anemia: (5) Hypokalemia: PLAN: Plan Hypoxia secondary to bilateral interstitial pneumonia - CT is markedly abnormal - With fevers suspect this is bilateral pneumonia - Check MRSA PCR - Continue Levaquin as initiated emergency department - Add vancomycin for MRSA coverage due to the extensiveness of the pneumonia - Aggressive pulmonary toilet - Solu-Medrol 40 every 8 - I-S and Acapella - COVID/flu/RSV is negative - Check respiratory viral panel - Check strep pneumo and Legionella antigens - Continue oxygen at 2 L and wean as able - will need ambulatory pulse ox prior to discharge - Will check for autoimmune issues with ANCA and DERDICK as well as ESR, CRP due to marked anemia in conjunction with the above and ongoing fevers and rigors for months - Consult pulmonary medicine with the extensiveness of her pneumonia on imaging Hypokalemia - 60 mill equivalents p.o. potassium - Recheck in a.m. - Check a magnesium level Acute hypotension - Has been fluid responsive and maps have all been greater than 65 - Cultures are all pending - Antibiotics as above - Lactic acid was within normal limits Anemia - Recent baseline is unknown - Check iron studies - check ferritin - Check reticulocyte count - Suspect may be related to the acute illness above Transaminitis - Suspect related to the above - Will trend - No current further workup needed at this time Tobacco abuse - Recommend cessation - Nicotine patch available DVT Prophylaxis - Lovenox subcu daily CODE STATUS - Verified is full code on admission Charges/Coding Visit Charges Inpatient E&M: 54148 Init Hosp L3
[2024-11-06] MEDS: levoFLOXacin IV 750 MG/150 ML BAG 100 MG IV (16:17)
[2024-11-06] MEDS: Acetaminophen 325 MG Tablet 650 MG PO (16:53)
[2024-11-06 17:37] LABS: Platelet Count 145 K/mm3 (150-450); RET-HE 29.6 pg (30-35); Reticulocyte Count 1.09 % (0.5-1.5)
[2024-11-06 17:48] LABS: Erythrocyte Sedimentation Rate 28 mm/hr (0-30)
[2024-11-06 17:50] LABS: Internal QC Validated? YES +Cl - CLEAR BKGD; Pregnancy, Urine Negative Negative
[2024-11-06 17:51] LABS: Record Kit Lot#,Urine Preg 947241
[2024-11-06 18:28] LABS: Ferritin 1130 ng/mL (22-378); Procalcitonin 0.53 ng/mL (<=0.10)
--- NOTE | 2024-11-06 18:31 | PCMCONS.TICU ---
HPI Consult Data Date of Consult: 11/06/24 HPI Narrative HPI Narrative: ALMA DELIA HAYNES, is a 38 F who presents [facility] Medical History Anemia Migraine headache Gastric reflux Hoarseness Hx of sepsis Smoker Abnormal results of thyroid function studies Malaise and fatigue Unspecified voice and resonance disorder Hair loss Insomnia Home Medications ?Medication ?Instructions ?Recorded ?Last Taken ?Type NK 11/06/24 Unknown History Allergy/AdvReac Type Severity Reaction Status Date / Time sulfamethoxazole (From Allergy Low Verified 11/06/24 11:15 Bactrim) neutrophils trimethoprim (From Bactrim) Allergy Low Verified 11/06/24 11:15 neutrophils Family History Mother Cancer Aunt Thyroid disorder Grandfather CVA (cerebral vascular accident) Parkinsons Surgical History Hx of foot surgery History of oral surgery History of appendectomy History of tonsillectomy Social History (Updated 11/06/24 @ 12:17 by Marilyn Gramajo) household members: significant other current occupational status: employed Smoking Status: Current every day smoker tobacco type: cigarettes alcohol intake: current alcohol intake frequency: a few times a month substance use type: does not use what type of physical activity do you participate in: other Objective Data Objective Data Vital Signs: Vital Signs Last response Temperature 39.4 C H 11/06/24 16:47 Temperature Source Oral 11/06/24 16:47 Pulse Rate 120 H 11/06/24 16:47 Respiratory Rate 20 H 11/06/24 16:47 Respiratory Effort Short of Breath 11/06/24 17:14 Respiratory Depth Normal 11/06/24 17:14 Respiratory Pattern Normal 11/06/24 17:14 Blood Pressure 125/72 H 11/06/24 16:47 Blood Pressure Mean 89 11/06/24 16:47 Blood Pressure Source Monitor 11/06/24 16:47 Blood Pressure Position Semi-Fowlers 11/06/24 16:47 Blood Pressure Location Left Arm 11/06/24 16:47 Pulse Ox 93 11/06/24 18:00 Oxygen Delivery Method Nasal Cannula 11/06/24 18:00 Oxygen Flow Rate (L/min) 3 11/06/24 18:00 I&O: I&O Last 24 Hours 11/05/24 11/06/24 11/06/24 23:59 11:59 23:59 Intake Total 215 / 2150 Output Total 500 / 500 Balance 1650 / 1650 I&O: Total Stay 11/06/24 11:14 thru 11/06/24 18:07 Intake Total 2150 Output Total 500 Balance 1650 Current Meds Ordered / Administered: Current meds ordered / Administered Generic Name Dose Route Start Last Admin Trade Name Freq PRN Reason Stop Dose Admin Acetaminophen 650 mg 11/06/24 16:42 11/06/24 16:53 Acetaminophen 325 Mg Tablet PO 650 mg Q6H PRN PRN Administration Pain 1-10 Or Fever>100.7 Albuterol Sulfate 2.5 mg 11/06/24 16:42 Albuterol 2.5 Mg/3 Ml Vial.Neb. INHALATION Q2H PRN PRN SOB &/OR WHEEZING Albuterol/Ipratropium 3 ml 11/06/24 16:42 Ipratropium/Albuterol Sulfate 3 Ml Ampul.Neb INHALATION Q4H.RT SHANIA Enoxaparin Sodium 40 mg 11/07/24 10:00 Enoxaparin 40 Mg/0.4 Ml Syringe SC DAILY SHANIA Guaifenesin 1,200 mg 11/06/24 22:00 Guaifenesin 1,200 Mg Tablet PO BID SHANIA Levofloxacin 750 mg in 150 mls @ 100 mls/hr 11/07/24 10:00 Levaquin Iv IV 11/14/24 10:01 Q24 SHANIA Sodium Chloride 250 mls @ 15 mls/hr 11/06/24 17:03 IV .[id number] PRN Saline Flush Sodium Chloride 250 mls @ 15 mls/hr 11/06/24 17:03 IV .[id number] PRN Additional IVPB Infusion Methylprednisolone 40 mg 11/06/24 22:00 Methylprednisolone 40 Mg/Ml Vial IV Q8 SHANIA Nicotine 21 mg 11/07/24 10:00 Nicotine 21 Mg Patch TD DAILY SHANIA Ondansetron HCl 4 mg 11/06/24 16:42 Ondansetron 4 Mg/2 Ml Vial IV Q8H PRN PRN NAUSEA/VOMITING Senna/Docusate Sodium 2 tablet 11/06/24 16:42 Senna/Docusate Sodium 1 Tablet PO BID PRN PRN Constipation Sodium Chloride 10 - 40 ml 11/06/24 17:03 0.9% Saline Lock 10 Ml Syringe IV UD PRN SALINE FLUSH Lab / Micro Data 11/06/24 11:49 11/06/24 11:49 Labs: Laboratory Results - last 24 hr 11/06/24 11:49: WBC 5.1, RBC 3.08 L, Hgb 9.2 L, Hct 27.3 L, MCV 88.6, MCH 29.9, MCHC 33.7, RDW Std Deviation 50.0 H, RDW Coeff of Deb 15.5 H, Plt Count 155, MPV 11.0, Immature Gran % (Auto) 0.400, Neut % (Auto) 90.1 H, Lymph % (Auto) 4.9 L, [place] % (Auto) 3.4, Eos % (Auto) 1.0, Baso % (Auto) 0.2, Absolute Neuts (auto) 4.6, Absolute Lymphs (auto) 0.25 L, Nucleated RBC % 0, Sodium 135, Potassium 2.8 L, Chloride 100, Carbon Dioxide 21.8, Anion Gap 13, BUN 13, Creatinine 0.80, Estim Creat Clear Calc 68.49, Est GFR (MDRD) Non-Af 97, BUN/Creatinine Ratio 16.6, Glucose 105 H, Lactic Acid < 1.0, Calcium 9.0, Total Bilirubin 0.45, AST 74 H, ALT 42 H, Alkaline Phosphatase 429 H, Total Protein 6.5, Albumin 3.2 L, Globulin 3.3, Albumin/Globulin Ratio 1.0 11/06/24 17:23: ESR 28, Retic Count 1.09, Immature Retic Fraction 9.90, Retic Hgb Equivalent 29.6 L, Iron Saturation 10.0 L, Ferritin 1130 H, Procalcitonin 0.53 H, KENNETH-1 Antibody TNP, Sm (Olson) Antibody TNP, [employer] SENIOR MANAGER Antibody TNP, Scl-70 Scleroderma Ab TNP, Antichromatin Antibodies TNP, Centromere B Antibody TNP 11/06/24 : Urine Test Negative Micro: Microbiology 11/06/24 Unknown Urine, Random Legionella Antigen - Final 11/06/24 Unknown Urine, Random Streptococcus pneumoniae Antigen (M - Final 11/06/24 11:49 Mucosa - Nose SARS-CoV-2, Influenza & RSV (PCR) - Final Imaging Radiology Impression Chest X-Ray 11/06/24 11:55 IMPRESSION: Lungs are relatively hypoinflated, but appear clear of acute disease. No pleural effusion or pneumothorax is noted. The cardiomediastinal silhouette is within the normal range. Mild thoracic spine dextroscoliosis is seen, with mild degenerative changes present. No acute osseous changes seen. Reading Location: [id number] Chest CTA 11/06/24 15:06 IMPRESSION: 1. No pulmonary embolism is identified. Some of the distal pulmonary arteries cannot be evaluated due to suboptimal opacification. 2. Multifocal ground-glass attenuation of both lungs, likely multifocal pneumonia. Reading Location: [facility] Assessment and Plan . Assessment and plan: HPI 38 yo previously healthy female smoker admitted 11/06/24 w/ several weeks to months of cough, dyspnea, fever. She says she had influenza infection in Jun, initially felt improved at that time, but soon began to have recurrent symptoms including dry cough, malaise, ARNOLD, and intermittent fevers. She apparently has not sought medical attention until a few weeks ago at which time she was prescribed ABX and prednisone. She says that she did not feel much better when taking these. She has not had much in the wasof associated symptoms - no CP, no edema, no hemoptysis, minimal sputum. She is a smoker. She drinks alcohol occasionally. She denies illicit drug use. No significant travel. No known ill contacts. No reported exposures. 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 She does not report known illnesses and does not report taking any medications routinely. Noted fever in the ED. She is breathing 3 LPM O2 comfortably at rest. She appears ill, but NAD and is not toxic. Lab reveals anemia as well as elevated LFT, w/ significant elevation alkaline phosphatase. Micro studies are pending. CT chest reveals extensive bilateral alveolar infiltrates in all lobes. No significant LULU, no effusions. She has been started on empiric anti-bacterials and IV steroids. EXAM GEN NAD VS as above HEENT o/p clear NECK supple COR RRR CHEST bronchial ABD soft EXT no edema SKIN w/d EL NF ASSESSMENT/PLAN 1. Subacute febrile illness w/ extensive bilateral alveolar infiltrates on CT chest. Extensive DDX at this time. Micro studies are pending. At this time, check UA, LDH, p-BNP, UDS, HIV serology. Await micro studies. Follow clinically on empiric treatment. Anticipate a high likelihood she will require diagnostic bronchoscopy at some point soon. The entirety of this encounter was done via Telemedicine
[2024-11-06 19:25] LABS: Iron 23 ug/dL (50-170); Iron Binding Capacity,Unsat 198 ug/dL (228-428)
[2024-11-06 19:45] LABS: Iron Binding Capacity,Total 221 ug/dL (250-450); PERCENT IRON SATURATION 10.4 % (13-59)
[2024-11-06] MEDS: Ipratropium/Albuterol Sulfate 3 ML AMPUL.NEB INHALATION (19:55)
--- OUTSIDE RECORDS SUMMARY | 2024-11-06 20:53 | XMS RPT_ITS | CCD ---
Author Organization [facility] Care Team Providers Care Tub Wash Operator Name Role Phone Unavailable Primary Care Provider Unavailabl e Care Physician, No Primary Primary Care Provider Unavailable Care Physician, No Primary Referring Provider Un available LILLI Melgar Attending Provider MD Nitin Scott Attending Provider Care Physician, No Primary Referring Unava ilable Care Physician, No Primary Primary Care Unava ilable Nitin Scott Attending Unavailable Care Physician, No Primary Referring Unava ilable Care Physician, No Primary Primary Care Unava ilable Nitin Scott Attending Unavailable Care Physician, No Primary Primary Care Unava ilable Care Physician, No Primary Referring Unava ilable Nitin Scott Attending Unavailable Mitchell Palmer Attending Unavailable Care Physician, No Primary Primary Care Unava ilable Care Physician, No Primary Referring Unava ilable Care Physician, No Primary Primary Care Unava ilable Nitin Scott Attending Unavailable Care Physician, No Primary Referring Unava ilable Care Physician, No Primary Primary Care Unava ilable Nitin Scott Attending Unavailable Casey Melgar Attending Unavailable Care Physician, No Primary Primary Care Unava ilable Care Physician, No Primary Referring Unava ilMarilyn Malone Attending Unavailable Care Physician, No Primary Primary Care Unava ilable Nitin Scott Referring Unavailable Care Physician, No Primary Primary Care Unava ilNitin Frank Attending Unavailable Casey Melgar Attending Unavailable Care Physician, No Primary Primary Care Gayva Casey Singletary Referring Unavailable Unavailable Primary Care Provider Cirilo Potts MD, Kyung Primary Care Provider Allergies Allergy Classification Reported Allergen(s) Allergy Type Date of Onset Reaction(s) Facility (9 sources) Sulfamethoxazole; Translations: [SULFAMETHOXAZOLE] Drug Allergy 9 Other: See [facility] (9 sources) Trimethoprim; Translations: [TRIMETHOPRIM] Drug Allergy 9 Other: See Comments [facility] (1 source) Sulfamethoxazole Drug Allergy 4 [facility] (1 source) Trimethoprim Drug Allergy 4 [facility] Medications Current Medications Medication Drug Class(es) Dates Sig (Normalized) Sig (Original) acetaminophen 325 mg oral tablet (8 sources) Start: 02-03-2022 take 2 tablets by mouth every six hours Acetaminophen (Tylenol) 325 mg Tablet Active 650 MG PO EVERY 6 HOURS February 02, 2022 11:00pm End: 01-15-2024 acetaminophen (TYLENOL 8 LALO R ORAL) Take by mouth. 01/15/2024 Discontinued End: 01-15-2024 acetaminophen (TYLENOL 8 LALO R ORAL) Take by mouth. 0 01/15/2024 Discontinued acetaminophen (T YLENOL 8 HOUR ORAL) Take by mouth. 0 Active Comment on above: Take by mouth. [id number] 200 actuat albuterol 0.09 mg/actuat metered dose inhaler (5 sources) beta2-Adrenergic Agonist Start: 01-15-2024 take 2 puff(s) by inhalation every four hours as needed for wheezing albuterol HFA (PROVENTIL HFA, VENTOLIN HFA) 90 mcg/actuation inhaler Indications: Wheezing Inhale 2 Puffs as instructed every 4 hours as needed for wheezing/shortness of breath. 18 g 0 01/15/2024 Active Start: 05-11-2018 End: 01-15-2024 take 2 puff(s) by inhalation every four hours as needed for wheezing albuterol HFA (VENTOLIN HFA) 90 mcg/actuation inhaler Indications: Cough , URI with cough and congestion Inhale 2 Puffs as instructed every 4 hours as needed for Wheezing/Shortness of Breath. 1 Inhaler 05/11/2018 01/15/2024 Discontinued Comment on above: Inhale 2 Puffs as in structed every 4 hours as needed for Wheezing/Shortness of Breath. benzonatate 100 mg oral capsule (1 source) Non-narcotic Antitussive Start: 2023 End: 2023 take 1 capsule by mouth every eight hours as needed for cough and cough benzonatate (TESSALON PERLE) 100 mg capsule Indications: Acute cough Take 1 capsule by mouth every 8 hours as needed for cough for up to 15 days. 30 capsule 0 01/15/2024 01/30/2024 Active cefdinir 300 mg oral capsule (1 source) Cephalosporin Antibacterial Start: 2022 End: 2022 take 1 capsule by mouth twice daily cefdinir (OMNICEF) 300 mg capsule Indications: Acute otitis media, right Take 1 capsule by mouth two times a day for 7 days. 14 capsule 0 04/23/2023 04/30/2023 Active Comment on above: Take 1 capsule by mo [facility] two times a day for 7 days. 168 hr ethinyl estradiol 0.88599 mg/hr / norelgestromin 0.15334 mg/hr transdermal system (4 sources) Progestin, Estrogen apply 1 dose transdermal route every week norelgestromin-et hinyl estradiol (XULANE, ZAFEMY) patch 150-35 mcg/24 hr Apply 1 Patch as directed once each week. Active Comment on above: Apply 1 Patch as dir ected once each week. fluticasone propionate 0.05 mg/actuat metered dose nasal spray (7 sources) Corticosteroid Start: 2020 take 2 spray(s) by mouth once daily fluticasone (FLONASE) 50 mcg/actuation nasal spray Use 2 Sprays in each nostril once daily. Rinse mouth after use. 1 Each 0 02/03/2021 Active Start: 08-06-2016 End: 01-15-2024 take 1 spray(s) nasal route once daily fluticasone (FLONASE) 50 mcg/actuation nasal spray Indications: Acute OREN (middle ear effusion), left Use 1 [place]ox[place] in each nostril once daily. 16 g 2 08/06/2016 01/15/2024 Discontinued Comment on above: Use 1 [place] in each nostril once daily. Use 2 Sprays in each nostril once daily. Rinse mouth after use. Inhalational Spacing Device (1 source) Start: 01-15-2024 End: 01-15-2024 Inhalational Spacing Device Indications: Wheezing 1 Device one time only for 1 dose. 1 Each 0 01/15/2024 01/15/2024 Active Completed/Discontinued Medications Medication Drug Class(es) Dates Sig (Normalized) Sig (Original) acetaminophen 325 mg / oxyCODONE hydrochloride 5 mg oral tablet (10 sources) Opioid Agonist Start: 06-08-2023 End: 06-12-2023 take 1 tablet by mouth every four hours Oxycodone-Acetamino phen (Percocet) 5-325 mg tablet Discontinued 1 TABLET PO Q4H 22 09June 08, 2023 June 12, 2023 12:04am Start: 02-03-2022 End: 06-08-2023 take 1 tablet by mouth every six hours Oxycodone-Acetaminophen (Percocet) 5-325 mg Tablet Discontinued 1 - 2 TABLET PO EVERY 6 HOURS February 02, 2022 11:00pm June 08, 2023 2:32pm Start: 01-03-2019 End: 01-12-2019 take 1 tablet by mouth every four hours as needed Oxycodone-Acetaminophen Discontinued 1 TABLET PO EVERY 4 HOURS NEEDED 12 7 January 03, 2019 January 11, 2019 11:09pm amoxicillin 500 mg oral tablet (4 sources) Penicillin-class Antibacterial Start: 01-03-2019 End: 07-08-2019 take 1000 mg by mouth three times daily Amoxicillin Discontinued 1000 MG PO THREE TIMES A DAY 42 January 02, 2019 11:00pm July 08, 2019 9:28am amoxicillin 875 mg / clavulanate 125 mg oral tablet (4 sources) Penicillin-class Antibacterial Start: 02-04-2019 End: 07-08-2019 take 875 mg by mouth every twelve hours Amoxicillin-Pot Clavulanate Discontinued 875 MG PO Q12H 14 February 03, 2019 11:00pm July 08, 2019 9:28am brompheniramine maleate 0.4 mg/ml / dextromethorphan hydrobromide 2 mg/ml / pseudoephedrine hydrochloride 6 mg/ml oral solution (4 sources) alpha-Adrenergic Agonist, Uncompetitive F-tvcbwk-J-aspartate Receptor Antagonist, Sigma-1 Agonist Start: 05-02-2018 End: 01-15-2024 take 5-10 mL by mouth every six hours as needed Brompheniramine-Pse udoeph-DM (BROMFED DM) 2-30-10 mg/5 mL syrup Take 5-10 ml po q6h prn 120 mL 05/02/2018 01/15/2024 Discontinued Comment on above: Take 5-10 ml po q6h prn 24 hr buPROPion hydrochloride 300 mg extended release oral tablet (4 sources) Aminoketone Start: 09-11-2018 End: 01-15-2024 take 1 tablet by mouth once daily buPROPion XL (WELLBUTRIN XL) 300 mg 24 hr tablet Indications: Tobacco abuse counseling Take 1 tablet by mouth once daily. 30 tablet 2 09/11/2018 01/15/2024 Discontinued Comment on above: Take 1 tablet by soren th once daily. cyclobenzaprine hydrochloride 10 mg oral tablet (3 sources) Muscle Relaxant Start: 01-28-2021 End: 01-15-2024 take 1 tablet by mouth every eight hours as needed cyclobenzaprine (FLEXERIL) 10 mg tablet Take 1 tablet by mouth three times daily as needed for muscle spasm. 21 tablet 0 01/28/2021 01/15/2024 Discontinued Comment on above: Take 1 tablet by soren th three times daily as needed for muscle spasm. oxyCODONE hydrochloride 5 mg oral tablet (4 sources) Opioid Agonist Start: 02-04-2022 End: 06-08-2023 take 5 mg by mouth every four hours Oxycodone Discontinued 5 MG PO Q4H 42 7 February 04, 2022 June 08, 2023 1:00pm pseudoephedrine hydrochloride 30 mg oral tablet (4 sources) alpha-Adrenergic Agonist Start: 08-06-2016 End: 01-15-2024 take 1 tablet by mouth every four hours as needed pseudoephedrine (SUDAFED) 30 mg tablet Indications: Acute OREN (middle ear effusion), left Take 1 tablet by mouth every 4 hours as needed. 30 tablet 08/06/2016 01/15/2024 Discontinued Comment on above: Take 1 tablet by soren th every 4 hours as needed. SUMAtriptan 25 mg oral tablet (4 sources) Serotonin-1b and Serotonin-1d Receptor Agonist Start: 09-11-2018 End: 01-15-2024 take 1 tablet by mouth every two hours as needed SUMAtriptan (IMITREX) 25 mg tablet Indications: Chronic nonintractable headache, unspecified headache type Take 1 tablet by mouth as needed. May repeat dose after 2 hours if ineffective 9 tablet 1 09/11/2018 01/15/2024 Discontinued Comment on above: Take 1 tablet by soren th as needed. May repeat dose after 2 hours if ineffective Problems Active Problems Problem Classification Problem Date Documented Da te Episodic/Chronic Acute and unspecified renal failure (4 sources) Acute renal failure syndrome; Translations: [Acute kidney failure, unspecified] 02-04-2019 Episodic Coagulation and hemorrhagic disorders (4 sources) Platelet count below reference range; Translations: [Thrombocytopenia, unspecified] 02-04-2019 Chronic Diseases of white blood cells (4 sources) Leukopenia; Translations: [Decreased white blood cell count, unspecified] 02-04-2019 Chronic E Codes: Adverse effects of medical drugs (4 sources) Adverse reaction to drug; Translations: [Adverse effect of unspecified drugs, medicaments and biological substances, initial encounter] 02-04-2019 Episodic Fluid and electrolyte disorders (8 sources) Hyponatremia; Translations: [Hypo-osmolality and hyponatremia] 02-04-2019 Episodic Fracture of upper limb (11 sources) Multiple fractures of forearm; Translations: [Unspecified fracture of left forearm, initial encounter for closed fracture] Onset: 07-04-2023 02-06-2022 Episodic Headache; including migraine (4 sources) Migraine; Translations: [Migraine, unspecified, not intractable, without status migrainosus] 02-04-2019 Chronic Open wounds of extremities (12 sources) Cat bite - wound; Translations: [Open bite of unspecified finger without damage to nail, initial encounter] 02-05-2019 Episodic Other injuries and conditions due to external causes (4 sources) Puncture wound - injury; Translations: [Other injury of unspecified body region, initial encounter] 11-06-2016 Episodic Other lower respiratory disease (1 source) Cough; Translations: [Acute cough] 01-15-2024 Episodic Other lower respiratory disease (1 source) Wheezing; Translations: [Wheezing] 01-15-2024 Episodic Other non-traumatic joint disorders (1 source) Pain in right shoulder; Translations: [Pain in joint, shoulder region] 01-28-2021 Episodic Other upper respiratory infections (1 source) Sore throat symptom; Translations: [Acute pharyngitis, unspecified] 01-15-2024 Episodic Otitis media and related conditions (2 sources) Acute right otitis media; Translations: [Otitis media, unspecified, right ear] 04-23-2023 Episodic Septicemia (except in labor) (4 sources) Sepsis; Translations: [Sepsis, unspecified organism] 02-04-2019 Episodic Sprains and strains (5 sources) Injury of wrist; Translations: [Strain of unspecified muscle, fascia and tendon at wrist and hand level, left hand, initial encounter] Onset: 06-14-2023 06-08-2023 Episodic Substance-related disorders (8 sources) Tobacco dependence syndrome; Translations: [Nicotine dependence, unspecified, uncomplicated] Onset: 03-25-2014 02-04-2019 Chronic Superficial injury; contusion (5 sources) Cat scratch injury; Translations: [Abrasion of left forearm, initial encounter] 02-05-2019 Episodic Urinary tract infections (4 sources) Pyelonephritis; Translations: [Tubulo-interstitia l nephritis, not specified as acute or chronic] 02-04-2019 Episodic Past or Other Problems Problem Classification Problem Date Documented Da te Episodic/Chronic Other screening for suspected conditions (not mental disorders or infectious disease) (1 source) Encounter for screening for malignant neoplasm of cervix; Translations: [Encounter for screening for malignant neoplasm of cervix] Onset: 11-22-2022 Episodic Results Test Name Value Interpretation Reference Range Facility [facility] 01-15-2024 CNOV Office Visit (UCWSTR ) ALMA DELIA DOW ([id number]) 1985 F Date Time Provider Department 01/15/24 6:45 PM KENDRICK CABRERA [facility] During your visit today, we recorded the following information about you: Temperature Pulse Respiration Blood pressure 98 degrees 101/minute 18/minute 138/84 Weight 73.5 kg Kendrick Cabrera MD 01/15/2024 7:18 PM Signed Patient presents with: Sore Throat: ST x 1 week HPI: Feeling sick for 1 week. Negative COVID test 3 days ago, worried she has strep throat or pneumonia. Positive symptoms: sore throat, feels a lump in the upper throat today, waxing and waning Cough, chest tightness/burning, Feverish/sweats, Body Aches, Earache, Nasal Congestion, Rhinorrhea, Headache, Negative symptoms: Vomiting, Diarrhea, OTC: Dayquil, salt water. Son's inhaler relieved chest tightness. Smoker. PAST MEDICAL HISTORY No date: NEGATIVE MEDICAL HISTORY MEDICATIONS: Current Outpatient Medications Medication Sig fluticasone (FLONASE) 50 mcg/actuation nasal spray Use 2 Sprays in each nostril once daily. Rinse mouth after use. norelgestromin-ethiny l estradiol (XULANE, ZAFEMY) patch 150-35 mcg/24 hr Apply 1 Patch as directed once each week. No current facility-administered medications for this visit. ALLERGIES: ALLERGIES Allergen Reactions Sulfamethoxazole Other: See Comments Low neutrophils Trimethoprim Other: See Comments Low neutrophils VITALS: BP 138/84 Pulse 101 Temp 36.7 ?C (98 ?F) (Tympanic) Resp 18 Wt 73.5 kg (162 lb 0.6 oz) LMP 01/11/2021 SpO2 98% BMI 31.65 kg/m? PHYSICAL EXAM: GEN: mildly ill appearing HEENT: PERRL, EOMI, conjunctiva clear Ears: canals clear. Remote TM scars. TMs without erythema, bulge, or effusion Sinuses: non-tender frontal sinus, non-tender maxillary sinuses Throat: moist mucous membranes, mild erythema, no exudate Neck: supple, no thyromegaly, no lymphadenopathy HEART: regular rate and rhythm, no murmurs LUNGS: clear to auscultation, no wheezes or crackles, no increased WOB ASSESSMENT/PLAN: 1. Sore throat - ICD9: 462, ICD10: J02.9 (primary diagnosis) - STREP A MOLECULAR (POC) - negative. 2. Acute cough - ICD9: 786.2, ICD10: R05.1 3. Wheezing - ICD9: 786.07, ICD10: R06.2 - suspect viral URI. - Discussed supportive care treatment with rest, cold medicine, and analgesia. - ALBUTEROL SULFATE HFA 90 MCG/ACTUATION AEROSOL INHALER - has used in the past, likely some component of COPD. - INHALATIONAL SPACING DEVICE - BENZONATATE 100 MG CAPSULE Kendrick Cabrera MD Allergies As of Date: 01/15/2024 Noted Allergy Reaction SULFAMETHOXAZOLE 01/01/2019 14 - Other: See Comments Comments: Low neutrophils TRIMETHOPRIM 01/01/2019 14 - Other: See Comments Comments: Low neutrophils Date Reviewed: 01/15/2024 Reviewed by: Kaylee Adler LPN - Fully Assessed Reason for Visit: Sore Throat [200] Cmt: ST x 1 week Primary Visit Diagnosis:Sore throat [J02.9] Other Visit Diagnoses:Acute cough [R05.1] Wheezing [R06.2] Order(s):STREP A MOLECULAR (POC) [1834480] Order #: [id number]. #:[id number] albuterol HFA (PROVENTIL HFA, VENTOLIN HFA) 90 mcg/actuation inhalerInhale 2 Puffs as instructed every 4 hours as needed for wheezing/shortness of breath.Disp: 18 gRfl: 0 Inhalational Spacing Device1 Device one time only for 1 dose.Disp: 1 EachRfl: 0 benzonatate (TESSALON PERLE) 100 mg capsuleTake 1 capsule by mouth every 8 hours as needed for cough for up to 15 days.Disp: 30 capsuleRfl: 0 Prescriptions as of 01/15/2024 - albuterol HFA (PROVENTIL HFA, VENTOLIN HFA) 90 mcg/actuation inhaler Inhale 2 Puffs as instructed every 4 hours as needed for wheezing/shortness of breath. - Inhalational Spacing Device 1 Device one time only for 1 dose. - benzonatate (TESSALON PERLE) 100 mg capsule Take 1 capsule by mouth every 8 hours as needed for cough for up to 15 days. - fluticasone (FLONASE) 50 mcg/actuation nasal spray Use 2 Sprays in each nostril once daily. Rinse mouth after use. - norelgestromin-ethiny l estradiol (XULANE, ZAFEMY) patch 150-35 mcg/24 hr Apply 1 Patch as directed once each week. Problem List As Of Date 01/15/2024 Noted Resolved Tobacco dependence [F17.200] 03/25/2014 Prescriptions ordered this encounter Disp Refills Start End ALBUTEROL SULFATE HFA 90 MCG/ACTUATI* 18 g 0 01/15/2024 Cmt: Generic or brand: dispense inhaler preferred by patient/insurance unless CODY flag is selected. Route: INHALATION Sig: Inhale 2 Puffs as instructed every 4 hours as needed for wheezing/shortness of breath. INHALATIONAL SPACING DEVICE 1 Ea* 0 01/15/2024 01/15/2024 Route: Misc Si Device one time only for 1 dose. BENZONATATE 100 MG CAPSULE 30 c* 0 01/15/2024 01/30/2024 Route: ORAL Sig: Take 1 capsule by mouth every 8 hours as needed for cough for up to 15 days. Medications Dis (more content not included)... Normal [facility] STREP A MOLECULAR (POC)on Procedural Control Valid [facility] Strep A (POCT) Negative Negative [facility] CNOVon 08-21-2023 CNOV Office Visit (UCWSTR ) ALMA DELIA DOW ([id number]) 1985 F Date Time Provider Department 08/21/23 7:00 PM DEL WU [facility] During your visit today, we recorded the following information about you: Temperature Pulse Respiration Blood pressure 98.8 degrees 94/minute 16/minute 122/78 Weight 73.3 kg Del Wu APRN.ASSISTANT ASSOCIATE PROFESSOR 08/21/2023 7:02 PM Signed Subjective HPI Nontoxic-appearing female presents urgent care chief complaint bilateral ear pain. Duration of symptoms 4 days. Associated symptoms bilateral ear discomfort. States recently got over the flu or a similar virus. Presents today for evaluation. Most bothersome symptom today is ear pressure. States has some discomfort. Feels like ears are clogged. No ear trauma otorrhea loss hearing. Denies any fever body aches chills productive cough chest pain shortness of breath pleuritic pain hemoptysis nausea vomiting abdominal pain change in bowel or bladder habits. Past medical history prescription medication use and allergies reviewed. .Patient presents with: Ear Pain: Bilateral ear pain x 4 days PAST MEDICAL HISTORY Diagnosis Date NEGATIVE MEDICAL HISTORY PAST SURGICAL HISTORY Procedure Laterality Date APPENDECTOMY age 12 TONSILLECTOMY AND ADENOIDECTOMY HX age 6 ALLERGIES Sulfamethoxazole and Trimethoprim MEDICATIONS fluticasone (FLONASE) 50 mcg/actuation nasal spray Use 2 Sprays in each nostril once daily. Rinse mouth after use. norelgestromin-ethiny l estradiol (XULANE, ZAFEMY) patch 150-35 mcg/24 hr Apply 1 Patch as directed once each week. acetaminophen (TYLENOL 8 HOUR ORAL) Take by mouth. (Patient not taking: Reported on 04/23/2023) cyclobenzaprine (FLEXERIL) 10 mg tablet Take 1 tablet by mouth three times daily as needed for muscle spasm. (Patient not taking: Reported on 03/17/2021) SUMAtriptan (IMITREX) 25 mg tablet Take 1 tablet by mouth as needed. May repeat dose after 2 hours if ineffective (Patient not taking: Reported on 01/28/2021) buPROPion XL (WELLBUTRIN XL) 300 mg 24 hr tablet Take 1 tablet by mouth once daily. (Patient not taking: Reported on 01/28/2021) albuterol HFA (VENTOLIN HFA) 90 mcg/actuation inhaler Inhale 2 Puffs as instructed every 4 hours as needed for Wheezing/Shortness of Breath. (Patient not taking: Reported on 04/23/2023) Brompheniramine-Pseud oeph-DM (BROMFED DM) 2-30-10 mg/5 mL syrup Take 5-10 ml po q6h prn (Patient not taking: Reported on 03/17/2021) pseudoephedrine (SUDAFED) 30 mg tablet Take 1 tablet by mouth every 4 hours as needed. (Patient not taking: Reported on 03/17/2021) fluticasone (FLONASE) 50 mcg/actuation nasal spray Use 1 [place] in each nostril once daily. (Patient not taking: Reported on 04/23/2023) FAMILY HISTORY Problem Relation Age of Onset Diabetes Father type 2 other (parkinsons) Maternal Grandmother Social History Tobacco Use Smoking status: Every Day Packs/day: .5 Types: Cigarettes Start date: 06/25/2003 Smokeless tobacco: Never Substance Use Topics Alcohol use: Yes Comment: rare Drug use: No BP 122/78 Pulse 94 Temp 37.1 ?C (98.8 ?F) (Tympanic) Resp 16 Wt 73.3 kg (161 lb 9.6 oz) LMP 01/11/2021 SpO2 97% BMI 31.56 kg/m? Review of Systems Constitutional: Negative for chills, fever and malaise/fatigue. HENT: Positive for congestion and ear pain. Negative for ear discharge, hearing loss, sinus pain, sore throat and tinnitus. Eyes: Negative for blurred vision, pain, discharge and redness. Respiratory: Negative for cough, hemoptysis, sputum production, shortness of breath, wheezing and stridor. Cardiovascular: Negative for chest pain. Gastrointestinal: Negative for abdominal pain, diarrhea, nausea and vomiting. Musculoskeletal: Negative for myalgias. Skin: Negative for itching and rash. Neurological: Negative for dizziness and headaches. Objective Physical Exam Constitutional: General: She is not in acute distress. Appearance: She is not diaphoretic. HENT: Head: Normocephalic. Jaw: No trismus, tenderness, swelling or pain on movement. Right Ear: Tympanic membrane, ear canal and external ear normal. Left Ear: Tympanic membrane, ear canal and external ear normal. Ears: Comments: Clear fluid noted behind bilateral TMs. Mouth/Throat: Mouth: Mucous membranes are moist. Pharynx: Oropharynx is clear. Uvula midline. No pharyngeal swelling, oropharyngeal exudate, posterior oropharyngeal erythema or uvula swelling. Eyes: Conjunctiva/sclera: Conjunctivae normal. Pupils: Pupils are equal, round, and reactive to light. Cardiovascular: Rate and Rhythm: Normal rate and regular rhythm. Heart sounds: Normal heart sounds. Pulmonary: Effort: Pulmonary effort is normal. No tachypnea, accessory muscle usage or respiratory distress. Breath sounds: Normal breath sounds. No stridor. No wheezing, rhonchi or rale (more content not included)... Normal [facility] Orthopedic Visit Reporton Orthopedic Visit Report [facility] [address] [place] [id number] OFFICE VISIT Date of Service: 07/04/23 MR#: [id number] Acct: [id number] Name: ALMA DELIA DOW Rep #: [id number] : 1985 Provider: Dr. Nitin ahuja MD Age/Sex: 37/F Location: [facility] Status: Signed Intake Vital Signs 06/08/23 12:59 07/03/23 08:44 Height 5 ft 5 ft Intake Visit Reasons: LEFT WRIST Chief Complaint: left wrist injury Accompanied by: Self Allergies sulfamethoxazole [From Bactrim] Allergy (Verified 07/04/23 15:52) Low neutrophils trimethoprim [From Bactrim] Allergy (Verified 07/04/23 15:52) Low neutrophils Medications acetaminophen 325 mg tablet (Tylenol) 650 mg PO Q6H PRN PRN 02/03/22 [History Confirmed 07/04/23] PFSH Medical History Abnormal results of thyroid function studies Anemia Gastric reflux Hair loss Hoarseness Hx of sepsis Insomnia Malaise and fatigue Migraine headache Smoker Unspecified voice and resonance disorder Surgical History History of appendectomy History of oral surgery History of tonsillectomy Hx of foot surgery Family History Mother Cancer Aunt Thyroid disorder Grandfather CVA (cerebral vascular accident) Parkinsons Social History Smoking Status: Current every day smoker tobacco type: cigarettes alcohol intake: current alcohol intake frequency: a few times a month substance use type: does not use what type of physical activity do you participate in: other HPI LEFT WRIST Details: This documentation accurately reflects the service provided and the decisions made by me, Dr. Nitin Scott MD 07/04/23 1111. Part of today???s visit was documented by [ ], acting as scribe. ALMA DELIA DOW is a 37 year old F here today for 3 weeks FU left distal ulna fracture. doing well, sometimes gets some swelling, cast fitting well though, no pain, able to do some light carrying at work. Ortho Exam General General: Yes no acute distress Neurologic: Yes alert and Yes oriented x3 Psychologic: Yes reasonable and appropriate Right Wrist/Hand Skin/Wound: Yes CDI, No Swelling, No Ecchymosis and Yes nail intact Left Wrist/Hand Skin/Wound: Yes CDI, No Swelling, No Ecchymosis, Yes nail intact, Yes capillary refill normal and No erythema Motor: EPL: 4, FDP-2: 4, 1st Dorsal Interosseous: 4 and APB: 4 Sensation: Radial: I, Ulnar: I and Median: I WRIST: hand normal Supplemental Info xr of the wrist 3 views - callous at radius and ulna indicating was both bones fractures, but alignment is same and in acceptable position Coding Level of Care Code Off vis,est,level 3 Diagnoses Fracture of distal end of left ulna S52.602A Assessment and Plan Assessment and Plan (1) Fracture of distal end of left ulna: Status: Acute Plan: ALMA DELIA DOW is a 37 year old F here today for 3 weeks FU left distal radius and ulna fracture. Patient doing well. Alignment acceptable. Recommend avoid heavy lifting, FU in 3 more weeks to dc cast. No further concerns. Orders: Orders Wrist min 3 Views Today S52.602A - Unspecified fracture of lower end of left ulna, initial encounter for closed fracture 07/04/23 1607 Date Nitin Scott MD [facility] Signature: Date (if applicable) CC: Normal [facility] Wrist min 3 Viewson 07-04-19 24 Wrist min 3 Views [facility] [address] [place] [address] Wrist min 3 Views MR#: [id number] Acct: [id number] Name: ALMA DELIA DOW Rep #: [id number] : 1985 F 37 From: Joseph Morgan DO PCP: Care Physician,No Primary Status: DEP AMB Study: Wrist min 3 Views Date of Exam: 07/04/23 Exam# [id number] Ordering Dr: Nitin Scott MD [id number] INDICATION: fu EXAMINATION/TECHNIQUE : X-RAY - LEFT XR Wrist Min 3 Views 3 VIEWS COMPARISON: June 08, 2023 wrist x-rays. __ FINDINGS: Fine osseous detail appeared by casting material. SOFT TISSUES: Interval decrease in soft tissue swelling. No soft tissue gas. BONES/JOINTS: Internal fixation plate volar, distal radial and ulnar diaphysis. Hardware obscuring is radius and ulna fractures. There is some visible periosteal reaction and subtle cortical irregularity distal radius at the level of the distal end of the hardware. There is also a transverse fracture distal ulnar metadiaphysis, unchanged. This is not covered by the internal fixation plate. New periosteal bone formation at this fracture. Ulnar styloid process fracture is visible. RAD/Wrist min 3 Views IMPRESSION: Internal fixation plates distal radius and ulna metadiaphysis. Stabilized fracture is not visible through the hardware. Additional nonstabilized transverse fracture distal ulnar metaphysis and ulnar styloid process with associated new bone formation. No significant malalignment. Electronically Signed: Joseph Morgan DO at 23:10 EST , CC: Dr. Nitin Scott MD; No Primary Care Physician Rn Endocrinology: Signed Normal [facility] Orthopedic Visit Reporton Orthopedic Visit Report [facility] [address] [place] [address] [address] [place] [address] OFFICE VISIT Date of Service: 06/13/23 MR#: [id number] Acct: [id number] Name: ALMA DELIA ODW Zamzam Rep #: [id number] : 1985 Provider: Dr. Nitin ahuja MD Age/Sex: 37/F Location: [facility] Status: Signed with Addenda ADDENDUM by Amber Kellogg on 06/13/23 at 1058 Office Procedure Documentation entered by Amber Kellogg 06/13/23 10:58: Cast Applied Cast Cast placed: Short arm cast applied to Left Asher Asher Material: No Date cc: * Signed Intake Vital Signs 06/08/23 12:59 Height 5 ft Weight: 168 lb 4 oz BMI 32.8 BP 110/74 Blood Pressure Location Rt brachial Position Sitting Respiration 16 Pulse 110 H Pulse Source NIBP Temp 98.3 F Temp Source Temporal Pulse Oximetry (%) 98 Oxygen Delivery Method room air Intake Visit Reasons: LEFT WRIST Chief Complaint: left wrist injury Accompanied by: Mother Is patient in pain?: Yes Allergies sulfamethoxazole [From Bactrim] Allergy (Verified 06/13/23 10:00) Low neutrophils trimethoprim [From Bactrim] Allergy (Verified 06/13/23 10:00) Low neutrophils Medications acetaminophen 325 mg tablet (Tylenol) 650 mg PO Q6H PRN PRN 02/03/22 [History Confirmed 06/13/23] PFSH Medical History Abnormal results of thyroid function studies Anemia Gastric reflux Hair loss Hoarseness Hx of sepsis Insomnia Malaise and fatigue Migraine headache Smoker Unspecified voice and resonance disorder Surgical History History of appendectomy History of oral surgery History of tonsillectomy Hx of foot surgery Family History Mother Cancer Aunt Thyroid disorder Grandfather CVA (cerebral vascular accident) Parkinsons Social History Smoking Status: Current every day smoker tobacco type: cigarettes alcohol intake: current alcohol intake frequency: a few times a month substance use type: does not use what type of physical activity do you participate in: other HPI LEFT WRIST Details: This documentation accurately reflects the service provided and the decisions made by me, Dr. Nitin Sctot MD 06/13/23925. Part of today???s visit was documented by [ ], acting as scribe. ALMA DELIA DOW is a 37 year old F here today for FU L wrist CT to eval Distal ulna fracture. Ortho Exam General General: Yes no acute distress Neurologic: Yes alert and Yes oriented x3 Psychologic: Yes reasonable and appropriate Right Wrist/Hand Skin/Wound: Yes Swelling and No Ecchymosis Left Wrist/Hand Skin/Wound: Yes CDI, Yes Swelling, No Ecchymosis, Yes nail intact, Yes capillary refill normal and No erythema Motor: EPL: 4, FDP-2: 4, 1st Dorsal Interosseous: 4 and APB: 4 Sensation: Radial: I, Ulnar: I and Median: I WRIST: hand swollen Supplemental Info [facility] Imaging Services [address] [address] Extremity Upper without Contra MR#: [id number] Acct: [id number] Name: ALMA DELIA DOW Rep #: [id number] : 1985 F 37 From: Mirtha Whittaker MD PCP: Care Physician,No Primary Status: REG CLI Study: Extremity Upper without Contra Date of Exam: 06/08/23 Exam# [id number] Ordering Dr: Nitin Scott MD [id number] STUDY: CT LEFT UPPER EXTREMITY / FOREARM REASON FOR EXAM: Female, 37 years old. left wrist include forearm -- left wrist include forearm - eval fracture pattern RADIATION DOSAGE (If Supplied By Facility): CTDIvol = ( 24.58 ) mGy, DLP = ( 701.96 ) mGycm TECHNIQUE: High resolution transaxial imaging was performed without the administration of intravenous contrast material. Multiplanar coronal, sagittal images and 3-D were reformatted. Individualized dose optimization techniques were used for this CT. COMPARISON: None. FINDINGS: There is a fixation plate through the mid distal radial and ulnar shaft. There is acute comminuted fracture involving the distal ulna including the ulnar styloid process. There is a subtle, slightly oblique fracture of indeterminate age involving the distal radial shaft, crossing the distal screw through the distal fixation plate. Remainder of the radius is normal. CT/Extremity Upper without Contra IMPRESSION: Acute comminuted fracture of the distal (more content not included)... Normal [facility] Extremity Upper without Cont raon 06-08-2023 Extremity Upper without Contra [facility] Imaging Services [address] [place] [address] Extremity Upper without Contra MR#: [id number] Acct: [id number] Name: ALMA DELIA DOW Rep #: [id number] : 1985 F 37 From: Mirtha Wihttaker MD PCP: Care Physician,No Primary Status: REG CLI Study: Extremity Upper without Contra Date of Exam: 0 06/08/23 Exam# [id number] Ordering Dr: Nitin Scott MD [id number] STUDY: CT LEFT UPPER EXTREMITY / FOREARM REASON FOR EXAM: Female, 37 years old. left wrist include forearm -- left wrist include forearm - eval fracture pattern RADIATION DOSAGE (If Supplied By Facility): CTDIvol = ( 24.58 ) mGy, DLP = ( 701.96 ) mGycm TECHNIQUE: High resolution transaxial imaging was performed without the administration of intravenous contrast material. Multiplanar coronal, sagittal images and 3-D were reformatted. Individualized dose optimization techniques were used for this CT. COMPARISON: None. FINDINGS: There is a fixation plate through the mid distal radial and ulnar shaft. There is acute comminuted fracture involving the distal ulna including the ulnar styloid process. There is a subtle, slightly oblique fracture of indeterminate age involving the distal radial shaft, crossing the distal screw through the distal fixation plate. Remainder of the radius is normal. CT/Extremity Upper without Contra IMPRESSION: Acute comminuted fracture of the distal ulna at the diaphyseal metaphyseal junction and involving the ulnar styloid process. Slightly oblique fracture involving the distal radial shaft traversing the area of fixation screw of the distal plate of exact age indeterminate. No other fractures are seen. Electronically Signed: Mirtha Whittaker MD at 17:08 EST , CC: Dr. Nitin Scott MD; No Primary Care Physician Rn Endocrinology: Signed [facility] Orthopedic Visit Reporton Orthopedic Visit Report [facility] [address] [place] [address] [address] [place] [address] OFFICE VISIT Date of Service: 06/08/23 MR#: [id number] Acct: [id number] Name: ALMA DELIA DOW Zamzam Rep #: [id number] : 1985 Provider: Dr. Nitin ahuja MD Age/Sex: 37/F Location: [facility] Status: Signed Intake Vital Signs 02/04/22 11:29 06/08/23 12:59 Height 5 ft 5 ft Intake Visit Reasons: LEFT WRIST Chief Complaint: left wrist injury Accompanied by: Significant Other Is patient in pain?: Yes (9-10) Allergies sulfamethoxazole [From Bactrim] Allergy (Verified 06/08/23 14:32) Low neutrophils trimethoprim [From Bactrim] Allergy (Verified 06/08/23 14:32) Low neutrophils Medications acetaminophen 325 mg tablet (Tylenol) 650 mg PO Q6H PRN PRN 02/03/22 [History Confirmed 06/08/23] oxycodone-acetaminoph en 5 mg-325 mg tablet (Percocet) 1 tab PO Q4H PRN pain 4 days #20 tabs 06/08/23 [Rx Confirmed 06/08/23] PFSH Medical History Abnormal results of thyroid function studies Anemia Gastric reflux Hair loss Hoarseness Hx of sepsis Insomnia Malaise and fatigue Migraine headache Smoker Unspecified voice and resonance disorder Surgical History History of appendectomy History of oral surgery History of tonsillectomy Hx of foot surgery Family History Mother Cancer Aunt Thyroid disorder Grandfather CVA (cerebral vascular accident) Parkinsons Social History Smoking Status: Current every day smoker tobacco type: cigarettes alcohol intake: current alcohol intake frequency: a few times a month substance use type: does not use what type of physical activity do you participate in: other HPI LEFT WRIST Details: This documentation accurately reflects the service provided and the decisions made by me, Dr. Nitin Scott MD 06/08/23 7552. Part of today???s visit was documented by [ ], acting as scribe. ALMA DELIA DOW is a 37 year old F here today for L wrist injury, yesterday, tripped over dog leash, L handed, FOOSH now, mostly ulnar pain but whole wrist hurts, had a prior injury had a both bones forearm fracture, the steps flipped 1 year ago feb [address]. saw [address] phan 1 yr ago for both bones ORIF, but now refusing her insurance. cigs - 1 ppd. 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 [employer]. Ortho Exam General General: Yes no acute distress Neurologic: Yes alert and Yes oriented x3 Psychologic: Yes reasonable and appropriate Right Wrist/Hand Skin/Wound: Yes Swelling (++) and Yes Ecchymosis Left Wrist/Hand Skin/Wound: Yes CDI, Yes Swelling (++), Yes Ecchymosis, Yes nail intact, Yes capillary refill normal and No erythema Left Wrist: Yes Tender to palpate triangular fibrocartilage complex and Yes Distal radioulnar joint Motor: EPL: 4, FDP-2: 4, 1st Dorsal Interosseous: 4 and APB: 4 Sensation: Radial: I, Ulnar: I and Median: I WRIST: ++ swelling ulnar side, pain at both DR and DU, healed incisions, lateral incision mid ulna healed. Supplemental Info [facility] Imaging Services [address] [address] Wrist 2 Views MR#: [id number] Acct: [id number] Name: POLLO DOWHENRY Reno Rep #: [id number] : 1985 F 36 From: Yanick Perez MD PCP: Care Physician,No Primary Status: DEP [facility] Study: Wrist 2 Views Date of Exam: 02/04/22 Exam# [id number] Ordering Dr: Joseph Phan DO STUDY: X-RAY - LEFT WRIST REASON FOR EXAM: Female, 36 years old. FX TECHNIQUE: 1 view(s) of the wrist were obtained. COMPARISON: 01/29/2022 FINDINGS: Extending across the distal radial ulnar shafts or surgical placement there is anatomic alignment of the fractures RAD/Wrist 2 Views IMPRESSION: ORIF distal radial and ulnar shaft fractures. Electronically Signed: Yanick Perez MD, ANCELMO at 16:53 EDT , [facility] Imaging Services [address] [place] [address] Wrist min 3 Views MR#: [id number] Acct: [id number] Name: ALMA DELIA DOW Rep #: [id number] : 1985 F 37 From: Jacob Comer MD PCP: Care Physician,No Primary Status: REG CLI Study: Wrist min 3 Views Date of Exam: 06/08/23 Exam# [id number] Ordering Dr: Casey Padilla (more content not included)... [facility] Urgent Care Visit Reporton 0 06-08-2023 Urgent Care Visit Report [facility] [address], [address] [place] [address] OFFICE VISIT Date of Service: 06/08/23 MR#: [id number] Acct: [id number] Name: ALMA DELIA DOW Rep #: [id number] : 1985 Provider: LILLI Chavez Age/Sex: 37/F Location: [facility] Status: Signed Intake Vital Signs 02/04/22 11:29 06/08/23 12:59 Height 5 ft 5 ft Weight: 168 lb 4 oz BMI 32.8 BP 110/74 Blood Pressure Location Rt brachial Position Sitting Respiration 16 Pulse 110 H Pulse Source NIBP Temp 98.3 F Temp Source Temporal Pulse Oximetry (%) 98 Oxygen Delivery Method room air Intake Visit Reasons: LEFT WRIST INJURY Chief Complaint: left wrist injury Senior Financial Consultant Required: No Is patient in pain?: Yes Allergies sulfamethoxazole [From Bactrim] Allergy (Verified 06/08/23 13:00) Low neutrophils trimethoprim [From Bactrim] Allergy (Verified 06/08/23 13:00) Low neutrophils Medications acetaminophen 325 mg tablet (Tylenol) 650 mg PO Q6H PRN PRN 02/03/22 [History Confirmed 02/03/22] oxycodone-acetaminoph en 5 mg-325 mg tablet (Percocet) 1 - 2 tab PO Q6H PRN Pain 02/03/22 [History Confirmed 02/03/22] Is last menstrual period known: No Post menopausal: No Patient : No Nurse's Note: left wrist injury yesterday. + swelling to left wrist and left hand/ fingers. pt unsure if injury to hand or forearm. previous surgery to forearm with hardware. PFSH Medical History Abnormal results of thyroid function studies Anemia Gastric reflux Hair loss Hoarseness Hx of sepsis Insomnia Malaise and fatigue Migraine headache Smoker Unspecified voice and resonance disorder Surgical History History of appendectomy History of oral surgery History of tonsillectomy Hx of foot surgery Family History Mother Cancer Aunt Thyroid disorder Grandfather CVA (cerebral vascular accident) Parkinsons Social History Smoking Status: Current every day smoker tobacco type: cigarettes alcohol intake: current alcohol intake frequency: a few times a month substance use type: does not use what type of physical activity do you participate in: other HPI HPI Chief Complaint: left wrist injury Details: ALMA DELIA MALCUIT, is a 37 F who presents to the office today for initial evaluation of left wrist injury. Patient states that yesterday she tripped and fell catching herself with her left hand and has had pain to the left hand since then. She localizes most of her pain to the distal ulnar left wrist. Patient does have a history of fixation of both the left ulna and radius approximately year ago. Patient states that she has had some swelling to the left wrist and will not move it secondary to the pain. No other associated symptoms or alleviating/aggravati ng factors. ROS Const Constitutional: No other (6 system ROS completed with pertinent findings in the HPI otherwise normal.) Exam Const General: cooperative and healthy appearing Skin General: no rashes or lesions noted Neuro General: patient alert and CN's II-XI intact bilaterally Extrem General: capillary refill normal Other: Pain to palpation left lateral wrist distal ulna with slight deformity upon palpation. Appropriate distal pulses intact throughout as well as sensation to light touch. Psych Appearance: grossly normal Mental Status: mental status grossly normal Coding Level of Care Code Off vis,new,level 4 Diagnoses Strain of left wrist S66.912A Fracture of distal end of left ulna S52.602A Assessment and Plan Assessment and Plan (1) Strain of left wrist: Status: Acute (2) Fracture of distal end of left ulna: Status: Acute Orders: Orders Wrist min 3 Views Today S66.912A - Strain of unspecified muscle, fascia and tendon at wrist and hand level, left hand, initial encounter Plan X-ray of the left wrist read and interpreted by myself finding a comminuted fracture of the left distal ulna. Awaiting radiology interpretation at time of patient discharge. Conversation was had with [facility] as the patient did have an appointment scheduled for tomorrow and it was determined to have the patient report there for further evaluation and joseph atment of the ulna. Patient verbalized understanding and agreement with all the above. 06/08/23 1422 Date Casey REEDER Cosignly Signature: Date (if applicable) CC: Normal [facility] Wrist min 3 Viewson 06-08-19 Wrist min 3 Views [facility] Imaging Services [address] [place] [address] Wrist min 3 Views MR#: [id number] Acct: [id number] Name: ALMA DELIA DOW Rep #: [id number] : 1985 F 37 From: Jacob Comer MD PCP: Care Physician,No Primary Status: REG CLI Study: Wrist min 3 Views Date of Exam: 06/08/23 Exam# [id number] Ordering Dr: Casey Padilla ADDENDUM by Dr. Jacob Comer MD on 06/08/23 at 1422 ======== ADDENDUM ======== [id number] Patient has a history of fall. New comminuted distal ulnar fracture which was not seen on the comparison study of February 04, 2022. Electronically Signed: Jacob Comer MD at 14:22 EST , 06/08/23 1422 Date cc: LILLI Chavez; No Primary Care Physician * Signed ADDENDUM by Dr. Jacob Comer MD on 06/08/23 at 1422 RAD/Wrist min 3 Views IMPRESSION: undefined 06/08/23 1429 Date cc: LILLI Chavez; No Primary Care Physician * Signed [id number] STUDY: X-RAY - LEFT WRIST REASON FOR EXAM: Female, 37 years old. Wrist pain TECHNIQUE: 4 view(s) of the wrist were obtained. COMPARISON: February 04, 2022 FINDINGS: Plate and screw fixation of the distal radius and ulna with anatomic alignment and callus formation at the fracture sites. Fracture of the distal ulna, unchanged. RAD/Wrist min 3 Views IMPRESSION: Stable ORIF of distal radius and ulna. No complicating features. Electronically Signed: Jacob Comer MD at 13:28 EST Reading Location ID and State: [address] [facility] , Service support , CC: LILLI Chavez; No Primary Care Physician Rn Endocrinology: Signed [facility] CNOVon 04-23-2023 CNOV Office Visit (UCWSTR ) ALMA DELIA DOW ([id number]) 1985 F Date Time Provider Department 04/23/23 2:30 PM [facility] During your visit today, we recorded the following information about you: Temperature Pulse Respiration Blood pressure 98.2 degrees 111/minute 16/minute 128/90 Weight 75.8 kg Marina Veronica APRN.ASSISTANT ASSOCIATE PROFESSOR 04/23/2023 2:56 PM Signed This note was created using NoteWriter. Subjective Alma Delia Zamzam Paloma is a 37 year old female here [...] Relevant Medications cefdinir (OMNICEF) 300 mg capsule Referring Provider: SELF [200] Allergies As of Date: 04/23/2023 Noted Allergy Reaction SULFAMETHOXAZOLE 01/01/2019 14 - Other: See Comments Comments: Low neutrophils TRIMETHOPRIM 01/01/2019 14 - Other: See Comments Comments: Low neutrophils Date Reviewed: 04/23/2023 Reviewed by: Xochitl Padilla LPN - Fully Assessed Reason for Visit: Ear Pain [817] Cmt: Right ear x4 days Primary Visit Diagnosis:Acute otitis media, right [H66.91] Order(s):cefdinir (OMNICEF) 300 mg capsuleTake 1 capsule by mouth two times a day for 7 days.Disp: 14 capsuleRfl: 0 Prescriptions as of 04/23/2023 - cefdinir (OMNICEF) 300 mg capsule Take 1 capsule by mouth two times a day for 7 days. - fluticasone (FLONASE) 50 mcg/actuation nasal spray Use 2 Sprays in each nostril once daily. Rinse mouth after use. - acetaminophen (TYLENOL 8 HOUR ORAL) Take by mouth. - cyclobenzaprine (FLEXERIL) 10 mg tablet Take 1 tablet by mouth three times daily as needed for muscle spasm. - SUMAtriptan (IMITREX) 25 mg tablet Take 1 tablet by mouth as needed. May repeat dose after 2 hours if ineffective - buPROPion XL (WELLBUTRIN XL) 300 mg 24 hr tablet Take 1 tablet by mouth once daily. - albuterol HFA (VENTOLIN HFA) 90 mcg/actuation inhaler Inhale 2 Puffs as instructed every 4 hours as needed for Wheezing/Shortness of Breath. - Brompheniramine-Pseud oeph-DM (BROMFED DM) 2-30-10 mg/5 mL syrup Take 5-10 ml po q6h prn - pseudoephedrine (SUDAFED) 30 mg tablet Take 1 tablet by mouth every 4 hours as needed. - fluticasone (FLONASE) 50 mcg/actuation nasal spray Use 1 Roxobel in each nostril once daily. - norelgestromin-ethiny l estradiol (XULANE, ZAFEMY) patch 150-35 mcg/24 hr Apply 1 Patch as directed once each week. Problem List As Of Date 04/23/2023 Noted Resolved Tobacco dependence [F17.200] 03/25/2014 Prescriptions ordered this encounter Disp Refills Start End CEFDINIR 300 MG CAPSULE 14 c* 0 04/23/2023 04/30/2023 Route: ORAL Sig: Take 1 capsule by mouth two times a day for 7 days. Encounter Status:Closed by MARINA VERONICA on 04/23/23 Normal [facility] PAP IG HPV APTIMA 16/18,45on 11-21-2022 ADEQ Comment Normal . [facility] Comment on above: Order Comment: Speci men Comment: [id number] Specimen Comment: Source.............Cervix;Endocervix Specimen Comment: LMP / Prev Treat...[id number] Specimen Comment: No. of containers..01 ThinPrep Vial Result Comment: Sati sfactory for evaluation. Endocervical and/or squamous metaplastic cells (endocervical component) are present. Performed By: #### L 7400.0280 #### [facility] [address] [place], [place], [id number] COMM . Normal . [facility] Comment on above: Order Comment: Speci men Comment: [id number] Specimen Comment: Source.............Cervix;Endocervix Specimen Comment: LMP / Prev Treat...[id number] Specimen Comment: No. of containers..01 ThinPrep Vial Performed By: #### L 7400.0280 #### [facility] [address] [place], [place], [address] COMMENT Comment Normal . [facility] Comment on above: Order Comment: Speci men Comment: [id number] Specimen Comment: Source.............Cervix;Endocervix Specimen Comment: LMP / Prev Treat...[id number] Specimen Comment: No. of containers..01 ThinPrep Vial Result Comment: This liquid based ThinPrep(R) pap test was screened with the use of an image guided system. Performed By: #### L 7400.0280 #### [facility] [address] [place], [place], [id number] DIAG Comment Normal . [facility] Comment on above: Order Comment: Speci men Comment: [id number] Specimen Comment: Source.............Cervix;Endocervix Specimen Comment: LMP / Prev Treat...[id number] Specimen Comment: No. of containers..01 ThinPrep Vial Result Comment: NEGA TIVE FOR INTRAEPITHELIAL LESION OR MALIGNANCY. Performed By: #### L 7400.0280 #### [facility] [address] [place], [place], [id number] HPV APTIMA, HR Negative Normal Negative [facility] Comment on above: Order Comment: Speci men Comment: [id number] Specimen Comment: Source.............Cervix;Endocervix Specimen Comment: LMP / Prev Treat...[id number] Specimen Comment: No. of containers..01 ThinPrep Vial Result Comment: This nucleic acid amplification test detects fourteen high- risk HPV types (16,18,31,33,35,39,45,51,52,56,58,59,66,68) without differentiation. Performed By: #### L 7400.0280 #### [facility] [address] [place], [place], [id number] HPV Genesis Rfx Comment Normal . [facility] Comment on above: Order Comment: Speci men Comment: [id number] Specimen Comment: Source.............Cervix;Endocervix Specimen Comment: LMP / Prev Treat...[id number] Specimen Comment: No. of containers..01 ThinPrep Vial Result Comment: Crit erophelia not met, HPV Genotype not performed. Performed at: - [address] [id number] Instrumentation Tech: Adele Nino MD, Phone: [phone] Performed at: = - [facility] [id number] Instrumentation Tech: Adele Nino MD, Phone: [phone] Performed By: #### L [id number] #### [facility] [address] [facility] [place], [address] PAPSMR Comment Normal . [facility] Comment on above: Order Comment: Speci men Comment: [id number] Specimen Comment: Source.............Cervix;Endocervix Specimen Comment: LMP / Prev Treat...[id number] Specimen Comment: No. of containers..01 ThinPrep Vial Result Comment: The Pap smear is a screening test designed to aid in the detection of premalignant and malignant conditions of the uterine cervix. It is not a diagnostic procedure and should not be used as the sole means of detecting cervical cancer. Both false-positive and false-negative reports do occur. Performed By: #### L 7400.0280 #### [facility] [address] [place], [place], [id number] PERFORM Comment Normal . [facility] Comment on above: Order Comment: Speci men Comment: [id number] Specimen Comment: Source.............Cervix;Endocervix Specimen Comment: LMP / Prev Treat...[id number] Specimen Comment: No. of containers..01 ThinPrep Vial Result Comment: Sam Guthrie Outpatient Physical Therapist Assistant (ASCP) Performed By: #### L [id number] #### [facility] [address] [place], [address] Cervical or vagninal specime n microscopic examination by cytology stain (reported asOrdered By: Marilyn Hazel on 2022 Cytology report Cyto stain Doc (Cvx/Vag) Comment . [facility] Comment on above: The Pap smear is a s creening test designed to aid in thedetection of premalignant and malignant conditions of theuterine cervix. It is not a diagnostic procedure andshould not be used as the sole means of detecting cervicalcancer. Both false-positive and false-negative reports dooccur. Detection in cervical specim en of any of human papilloma virus (HPV) 16, 18, 31, 33,Ordered By: Marilyn Hazel on 2022 HPV 16+18+31+33+35+39+45+51 +52+56+58+59+66+68 DNA Probe+sig amp Ql (Cvx) Negative Negative [facility] Comment on above: This nucleic acid am plification test detects fourteen high-risk HPV types (16,18,31,33,35,39,45,51,52,56,58,59,66,68)without differentiation. Laboratory - CytologyOrdered By: Marilyn Hazel on 2022 Director Of Patient Financial Services Cyto stain Nom (Cvx/Vag) [ID] Comment . [facility] Comment on above: Nitin Guthrie, Cyto technologist (ASCP) Laboratory - Miscellaneous t estsOrdered By: Marilyn Haezl on 2022 Service comment (Unsp spec) [Interp] Comment . [facility] Comment on above: This liquid based Th inPrep(R) pap test was screened withthe use of an image guided system. Service comment (Unsp spec) [Interp] . . [facility] Liquid-based cerv Pap + CT/G C by JULISSA hough reflex to high-risk HPV for ASCUSOrdered By: Marilyn Hazel on 2022 Cytology report Cyto stain.thin prep Doc (Cvx/Vag) Comment . [facility] Comment on above: Criteria not met, HP V Genotype not performed.Performed at: [address] [id number] Director: Adele Nino MD, Phone: [phone] at: =G - [facility] [place], [place] [id number] Director: Adele Nino MD, Phone: [phone] No Panel InformationOrdered By: Marilyn Hazel on 2022 Pathology report final diagnosis Narrative Comment . [facility] Comment on above: NEGATIVE FOR INTRAEP ITHELIAL LESION OR MALIGNANCY. Laboratory - Chemistry and C hemistry - challengeon 02-04-2022 HCG ( test) Ql (U) Negative [facility] Work Phone: Comment on above: Very dilute urine sp ecimens, as indicated by a low specificgravity, may not contain industrial sales representative levels of hCG. If is still suspected, a first morning urinespecimen should be collected 48 hours later and tested. No Panel Informationon 01-28 Radiology Study observation (narrative) [facility] XR Ribs - right Views and est PAon 01-28-2021 IMPRESSION: No acute findings. Rn Endocrinology: SILAS Transcribe Date/Time: Jan 28 2021 4:50P Dictated by : JUNG ASHLEY MD This examination was interpreted and the report reviewed and electronically signed by: JUNG ASHLEY MD on Jan 28 2021 4:55PM EST DIVISION OF RADIOLOGY * * *Final Report* * * DATE OF EXAM: Jan 28 2021 4:46PM WOX 5244 - XR RIB/CHST 3V AP RIB/OBL/CHST R / PROCEDURE REASON: multiple diagnoses * * * * Physician Interpretation * * * * XR RIB/CHST 3V AP RIB/OBL/CHST R CLINICAL HISTORY: Acute pain of right shoulder Contusion of chest wall, unspecified laterality, initial encounter COMPARISON: None. RESULT: Lungs are clear. No cardiomegaly. No pulmonary edema. No acute right rib fracture. DIVISION OF RADIOLOGY Provider, Jacinda Juan Carlos Peres - 01/28/2021 * * *Final Report* * * DATE OF EXAM: Jan 28 2021 4:46PM WOX 5244 - XR RIB/CHST 3V AP RIB/OBL/CHST R / PROCEDURE REASON: multiple diagnoses * * * * Physician Interpretation * * * * XR RIB/CHST 3V AP RIB/OBL/CHST R CLINICAL HISTORY: Acute pain of right shoulder Contusion of chest wall, unspecified laterality, initial encounter COMPARISON: None. RESULT: Lungs are clear. No cardiomegaly. No pulmonary edema. No acute right rib fracture. IMPRESSION IMPRESSION: No acute findings. Rn Endocrinology: PSCB Transcribe Date/Time: Jan 28 2021 4:50P Dictated by : JUNG ASHLEY MD This examination was interpreted and the report reviewed and electronically signed by: JUNG ASHLEY MD on Jan 28 2021 4:55PM EST [facility] XR Shoulder - right 3 Viewso n 01-28-2021 IMPRESSION: No acute radiographic abnormalities seen in the right shoulder. Rn Endocrinology: PSCB Transcribe Date/Time: Jan 28 2021 4:49P Dictated by : PRITESH ROBINS MD This examination was interpreted and the report reviewed and electronically signed by: PRITESH ROBINS MD on Jan 28 2021 4:51PM EST DIVISION OF RADIOLOGY * * *Final Report* * * DATE OF EXAM: Jan 28 2021 4:46PM WOX 5253 - XR SHLDR >/=3V AP/GOLDIE AP/OTHR RT / PROCEDURE REASON: multiple diagnoses * * * * Physician Interpretation * * * * EXAM TITLE: XR SHLDR >/=3V AP/GOLDIE AP/OTHR RT EXAM DATE/TIME: 01/28/2021 4:46 PM COMPARISON: None. CLINICAL INDICATION/HISTORY: Injury to weeks ago. TECHNIQUE: AP, true AP and Y views of the right shoulder are presented FINDINGS: No acute fractures or subluxations are noted. The acromioclavicular and glenohumeral joint spaces are preserved. The acromiohumeral interval is maintained. The mineralization of the bones is normal. There is no significant soft tissue swelling. DIVISION OF RADIOLOGY Provider, Violetta Rangel [facility] - 01/28/2021 * * *Final Report* * * DATE OF EXAM: Jan 28 2021 4:46PM WOX 5253 - XR SHLDR >/=3V AP/GOLDIE AP/OTHR RT / PROCEDURE REASON: multiple diagnoses * * * * Physician Interpretation * * * * EXAM TITLE: XR SHLDR >/=3V AP/GOLDIE AP/OTHR RT EXAM DATE/TIME: 01/28/2021 4:46 PM COMPARISON: None. CLINICAL INDICATION/HISTORY: Injury to weeks ago. TECHNIQUE: AP, true AP and Y views of the right shoulder are presented FINDINGS: No acute fractures or subluxations are noted. The acromioclavicular and glenohumeral joint spaces are preserved. The acromiohumeral interval is maintained. The mineralization of the bones is normal. There is no significant soft tissue swelling. IMPRESSION IMPRESSION: No acute radiographic abnormalities seen in the right shoulder. Rn Endocrinology: PSCB Transcribe Date/Time: Jan 28 2021 4:49P Dictated by : PRITESH ROBINS MD This examination was interpreted and the report reviewed and electronically signed by: PRITESH ROBINS MD on Jan 28 2021 4:51PM EST [facility] XR Shoulder - right 3 ViewsO rdered By: [facility] Provider on 01-28-2021 [facility] Vital Signs Date Time Vital Sign Value Performing Clinician Facility 01-15-2024 18:47-0400 Body mass index (BMI) [Ratio] 31.65 kg/m2 Kendrick Cabrera MD Work Phone: [facility] 01-15-2024 18:47-0400 Body temperature 98.01 [degF] Kendrick Cabrera MD Work Phone: [facility] 01-15-2024 18:47-0400 Body weight 73.5 kg Kendrick Cabrera MD Work Phone: [facility] 01-15-2024 18:47-0400 Diastolic blood pressure 84 mm[Hg] Kendrick Cabrera MD Work Phone: [facility] 01-15-2024 18:47-0400 Heart rate 101 /min Kendrick Cabrera MD Work Phone: [facility] 01-15-2024 18:47-0400 Respiratory rate 18 /min Kendrick Cabrera MD Work Phone: [facility] 01-15-2024 18:47-0400 SaO2% (BldA) [Mass fraction] 98 % Kendrick Cabrera MD Work Phone: [facility] 01-15-2024 18:47-0400 Systolic blood pressure 138 mm[Hg] Kendrick Cabrera MD Work Phone: [facility] 08-21-2023 18:51-0400 Body temperature 98.8 [degF] Del Pendlebury FACILITY OPERATIONS MANAGER.ASSISTANT ASSOCIATE PROFESSOR Work Phone: [facility] 08-21-2023 18:51-0400 Body weight 73.3 kg Del Pendlebury FACILITY OPERATIONS MANAGER.ASSISTANT ASSOCIATE PROFESSOR Work Phone: [facility] 08-21-2023 18:51-0400 Diastolic blood pressure 78 mm[Hg] Del Pendlebury FACILITY OPERATIONS MANAGER.ASSISTANT ASSOCIATE PROFESSOR Work Phone: [facility] 08-21-2023 18:51-0400 Heart rate 94 /min Del Pendlebury FACILITY OPERATIONS MANAGER.ASSISTANT ASSOCIATE PROFESSOR Work Phone: [facility] 08-21-2023 18:51-0400 Respiratory rate 16 /min Del Pendlebury FACILITY OPERATIONS MANAGER.ASSISTANT ASSOCIATE PROFESSOR Work Phone: [facility] 08-21-2023 18:51-0400 SaO2% (BldA) [Mass fraction] 97 % Del Pendlebury FACILITY OPERATIONS MANAGER.ASSISTANT ASSOCIATE PROFESSOR Work Phone: [facility] 08-21-2023 18:51-0400 Systolic blood pressure 122 mm[Hg] Del Pendlebury FACILITY OPERATIONS MANAGER.ASSISTANT ASSOCIATE PROFESSOR Work Phone: [facility] 06-08-2023 12:59-0500 Body height 152.4 cm No Primary Care Physician [facility] 06-08-2023 12:59-0500 Body mass index (BMI) [Ratio] 32.8 kg/m2 No Primary Care Physician [facility] 06-08-2023 12:59-0500 Body temperature 98.3 [degF] No Primary Care Physician [facility] 06-08-2023 12:59-0500 Body weight 76.31 kg No Primary Care Physician [facility] 06-08-2023 12:59-0500 Diastolic blood pressure 74 mm[Hg] No Primary Care Physician [facility] 06-08-2023 12:59-0500 Heart rate 110 /min No Primary Care Physician [facility] 06-08-2023 12:59-0500 Respiratory rate 16 /min No Primary Care Physician [facility] 06-08-2023 12:59-0500 SaO2% (BldA) [Mass fraction] 98 % No Primary Care Physician [facility] 06-08-2023 12:59-0500 Systolic blood pressure 110 mm[Hg] No Primary Care Physician [facility] 04-23-2023 14:42-0500 Body temperature 98.2 [degF] Marina Veronica APRN.ASSISTANT ASSOCIATE PROFESSOR Work Phone: [facility] 04-23-2023 14:42-0500 Body weight 75.75 kg Marina Veronica APRN.ASSISTANT ASSOCIATE PROFESSOR Work Phone: [facility] 04-23-2023 14:42-0500 Diastolic blood pressure 90 mm[Hg] Marina Veronica APRN.ASSISTANT ASSOCIATE PROFESSOR Work Phone: [facility] 04-23-2023 14:42-0500 Heart rate 111 /min Marina Veronica APRN.ASSISTANT ASSOCIATE PROFESSOR Work Phone: [facility] 04-23-2023 14:42-0500 Respiratory rate 16 /min Marina Veronica APRN.ASSISTANT ASSOCIATE PROFESSOR Work Phone: [facility] 04-23-2023 14:42-0500 SaO2% (BldA) [Mass fraction] 98 % Marina Veronica APRN.ASSISTANT ASSOCIATE PROFESSOR Work Phone: [facility] 04-23-2023 14:42-0500 Systolic blood pressure 128 mm[Hg] Marina Veronica APRN.ASSISTANT ASSOCIATE PROFESSOR Work Phone: [facility] 02-04-2022 15:41-0400 Body temperature 97.9 [degF] [facility] Work Phone: 02-04-2022 15:41-0400 Diastolic blood pressure 76 mm[Hg] [facility] Work Phone: 02-04-2022 15:41-0400 Heart rate 93 /min [facility] Work Phone: 02-04-2022 15:41-0400 Respiratory rate 16 /min [facility] Work Phone: 02-04-2022 15:41-0400 SaO2% (BldA) [Mass fraction] 92 % [facility] Work Phone: 02-04-2022 15:41-0400 Systolic blood pressure 109 mm[Hg] [facility] Work Phone: 02-04-2022 11:29-0400 Body height 152.4 cm [facility] Work Phone: 02-04-2022 11:29-0400 Body mass index (BMI) [Ratio] 33.6 kg/m2 [facility] Work Phone: 02-04-2022 11:29-0400 Body weight 78.1 kg [facility] Work Phone: 01-29-2022 23:17-0400 Respiratory rate 18 /min [facility] Work Phone: 01-29-2022 21:11-0400 Body mass index (BMI) [Ratio] 32.2 kg/m2 [facility] Work Phone: 01-29-2022 21:11-0400 Body temperature 98.9 [degF] [facility] Work Phone: 01-29-2022 21:11-0400 Body weight 74.84 kg [facility] Work Phone: 01-29-2022 21:11-0400 Diastolic blood pressure 96 mm[Hg] [facility] Work Phone: 01-29-2022 21:11-0400 Heart rate 141 /min [facility] Work Phone: 01-29-2022 21:11-0400 SaO2% (BldA) [Mass fraction] 99 % [facility] Work Phone: 01-29-2022 21:11-0400 Systolic blood pressure 136 mm[Hg] [facility] Work Phone: Encounters Encounter Date Encounter Type Care Provider Facility Start: 01-15-2024 End: 01-15-2024 ambulatory Facility:[facility] Start: 01-15-2024 End: 01-15-2024 Patient encounter procedure Kendrick Cabrera MD Work Phone: [facility] Comment on above: Sore throat (Primary Dx); Acute cough; Wheezing Start: 08-21-2023 End: 08-21-2023 ambulatory Facility:[facility] Start: 08-21-2023 End: 08-21-2023 Office outpatient visit 15 minutes Del Wu APRN.CNP Work Phone: [facility] Comment on above: Eustachian tube dysf unction, bilateral (Primary Dx) Start: 07-25-2023 ambulatory No Primary Car e Physician Facility:[facility] Start: 07-04-2023 End: 07-04-2023 ambulatory No Primary Care Physician Facility:[facility] Start: 06-27-2023 ambulatory No Primary Car e Physician Facility:[facility] Start: 06-13-2023 End: 06-13-2023 ambulatory No Primary Care Physician Facility:[facility] Start: 06-13-2023 Patient encounter procedure No Primary Care Physician [facility] Work Phone: Start: 06-08-2023 End: 06-08-2023 Patient encounter procedure No Primary Care Physician [facility] Work Phone: Start: 06-08-2023 End: 06-08-2023 ambulatory No Primary Care Physician [facility] Work Phone: Start: 06-08-2023 End: 06-08-2023 ambulatory Casey REEDER Facility:[facility] Start: 06-08-2023 End: 06-08-2023 Patient encounter procedure No Primary Care Physician [facility] Work Phone: Start: 06-08-2023 End: 06-08-2023 ambulatory No Primary Care Physician [facility] Work Phone: Start: 06-08-2023 End: 06-08-2023 Patient encounter procedure No Primary Care Physician [facility] Work Phone: Start: 04-23-2023 End: 04-23-2023 ambulatory Facility:[facility] Start: 04-23-2023 End: 04-23-2023 Patient encounter procedure Marina Veronica APRN.ASSISTANT ASSOCIATE PROFESSOR Work Phone: [facility] Comment on above: Acute otitis media, right (Primary Dx) Start: 2022 End: 2022 ambulatory Marilyn Hazel [facility] Work Phone: Start: 2022 End: 2022 Patient encounter procedure [facility] [place] [facility] Start: 02-04-2022 End: 02-04-2022 Admission to same day surgery center [facility] Start: 02-04-2022 End: 02-04-2022 ambulatory [facility] Work Phone: Start: 01-29-2022 End: 01-29-2022 Emergency department patient visit [facility] Start: 01-28-2021 End: 01-28-2021 Subsequent hospital visit by physician Salvador [facility] Work Phone: Radiology Comment on above: Acute pain of right shoulder [M25.511] Procedures Date Procedure Procedure Detail Performing Clinician Start: 01-15-2024 AYLEEN Foster MOLECULAR (POC) Samantha Guzmán APRN.ASSISTANT ASSOCIATE PROFESSOR Work Phone: Start: 06-08-2023 CT of upper limb wit hout contrast No Primary Care Physician Start: 06-08-2023 Plain x-ray of wrist No Primary Care Physician Start: 02-04-2022 Fluoroscopic guidance Start: 02-04-2022 Open reduction of fr acture with internal fixation Start: 01-29-2022 X-ray of radius and ulna Start: 01-28-2021 Radex ribs uni w/posteroant ch minimum 3 views Nalini Allen FACILITY OPERATIONS MANAGER.ASSISTANT ASSOCIATE PROFESSOR Work Phone: Plan of Treatment Date Care Activity Detail Author Start: 11-05-2026 Urine microalbumin profile DTaP,Tdap,Td Vaccine (2 - Td or Tdap) [facility] Start: 02-04-2024 Covid-19 Vaccine ( season) Covid-19 Vaccine ( season) [facility] Start: 02-04-2024 Influenza vaccination Influenza Vaccine (#1) [facility] Start: 06-08-2023 Radex wrist complete minimum 3 views X-RAY EXAM OF WRIST [facility] Start: 06-05-2023 Depression Assessment Depression Assessment [facility] Start: 02-03-2023 Covid-19 Vaccine ( season) Covid-19 Vaccine ( season) [facility] Start: 02-03-2023 Influenza vaccination Influenza Vaccine (#1) [facility] Start: 06-05-2022 Depression Assessment Depression Assessment [facility] Start: 02-04-2022 Application of ice collar, cap or bag [facility] Work Phone: Start: 02-04-2022 Catheterization of vein [facility] Work Phone: Start: 02-04-2022 Elevation of affected extremity [facility] Work Phone: Start: 02-04-2022 Following clinical pathway protocol [facility] Work Phone: Start: 02-04-2022 Patient discharge [facility] Work Phone: Start: 02-04-2022 Procedure discontinued [facility] Work Phone: Start: 02-04-2022 Taking patient vital signs [facility] Work Phone: Start: 02-04-[address] [facility] Work Phone: Start: 02-04-2022 [facility] Work Phone: Start: 02-04-2022 Plain x-ray of wrist Wrist 2 Views [facility] Work Phone: Start: 02-04-2022 XR Wrist 2 Views [facility] Work Phone: Start: 02-04-2022 Medication education [facility] Work Phone: Start: 01-29-2022 Application short arm splint dynamic APPLY FOREARM SPLINT [facility] Work Phone: Start: 12-10-2018 Pap Testing Pap Testing [facility] Start: 12-10-2018 Screening for malignant neoplasm of cervix Pap Testing [facility] Start: 12-10-2016 Screening for malignant neoplasm of cervix Cervical Cancer Screening [facility] Start: 11-18-2015 HPV Testing HPV Testing [facility] Start: 11-18-2015 Screening for malignant neoplasm of cervix HPV Testing [facility] Start: 2004 Hepatitis B Vaccine (1 of 3 - 19+ 3-dose series) Hepatitis B Vaccine (1 of 3 - 19+ 3-dose series) [facility] Start: 11-18-2003 Anxiety Screening Anxiety Screening [facility] Start: 11-18-2003 Depression Screening Depression Screening [facility] Start: 11-18-2003 Hepatitis C Screening Hepatitis C Screening [facility] Start: 11-18-2003 Hepatitis C screening Hepatitis C Screening [facility] Start: 11-18-2003 HIV Screening HIV Screening [facility] Start: 11-18-2003 HIV screening HIV Screening [facility] Start: 11-18-1991 Pneumococcal vaccination [facility] Start: 05-19-1986 Covid-19 Vaccine (#1) Covid-19 Vaccine (#1) [facility] Start: 1985 Hepatitis B Vaccine (1 of 3 - 3-dose series) Hepatitis B Vaccine (1 of 3 - 3-dose series) [facility] Patient Education ED Fracture, U pper Extremity [facility] Work Phone: Patient referral [facility] Work Phone: Immunizations Immunization Date Immunization Notes Care Provider Suzie boo 11-05-2016 tetanus toxoid, redu blake diphtheria toxoid, and acellular pertussis vaccine, adsorbed [facility] 03-02-2009 influenza virus vaccine, unspecified formulation Marina Veronica APRN.ASSISTANT ASSOCIATE PROFESSOR Work Phone: [facility] Payers Date Payer Category Payer Self-pay [id number] 2022 Unknown [id number] 2022 Unknown [id number] 2011 Medicaid [id number] Unknown [id number] 2.16.8 [id number] Unknown [id number] 2.16.8 [id number] Unknown [id number] 2.16.8 [id number] Unknown [id number] 2.16.8 [id number] Unknown [id number] 2.16.8 [id number] Unknown [id number] 2.16.8 [id number] Unknown [id number] 2.16.8 [id number] Unknown [id number] 2.16.8 [id number] Unknown [id number] 2.16.8 [id number] Unknown [id number] 2.16.8 [id number] Social History Date Type Detail Facility Start: 02-03-2022 End: 06-13-2023 Tobacco smoking status CAIS Unknown if ever smoked [facility] Start: 02-04-2019 Rare [facility] Start: 02-04-2019 None [facility] Start: 02-04-2019 With Family [facility] Start: 12-31-2018 Cigarettes [facility] Start: 1985 Sex Assigned At Female [facility] Start: 06-25-2003 End: 01-17-2022 Tobacco smoking status NHIS Smokes tobacco daily [facility] Start: 06-25-2003 History of tobacco use Cigarette Smoker [facility] Start: 05-11-2020 End: 01-17-2022 Cigarettes smoked current (pack per day) - Reported 0.5 [facility] Start: 03-25-2014 End: 01-17-2022 Tobacco use and exposure Smokeless tobacco non-user [facility] Start: 01-28-2021 End: 04-23-2023 Alcohol intake Current drinker of alcohol (finding) [facility] Start: 05-11-2020 End: 04-23-2023 Tobacco use panel [facility] National Score (1-100), lower number is lower risk Not on file [facility] Start: 03-25-2014 Alcohol Comment [facility] Start: 1985 Sex Assigned At Not on file C [facility] Start: 12-29-2020 End: 01-28-2021 Exposure to SARS-CoV-2 (event) Yes [facility] NEGATED: Highlighted row [facility] Work Phone: Medical Equipment Procedure Code Equipment Code Equipment Origin al Text Equipment Identifier Dates ORIF, fracture, wrist 3.5 mm cortex screws, self-tapping FDA Start: 02-04-2022 ORIF, fracture, wrist ([id number]) Orthopaedic bone screw, non-bioabsorbable, non-sterile ()[id number] FDA Start: 02-04-2022 ORIF, fracture, wrist ([id number]) Orthopaedic fixation plate, non-bioabsorbable, sterile ()[id number] FDA Start: 02-04-2022 ORIF, fracture, wrist 3.5 mm cortex screws, self-tapping FDA Start: 02-04-2022 ORIF, fracture, wrist 3.5 mm cortex screws, self-tapping FDA Start: 02-04-2022 ORIF, fracture, wrist 3.5 mm cortex screws, self-tapping FDA Start: 02-04-2022 ORIF, fracture, wrist 3.5 mm cortex screws, self-tapping FDA Start: 02-04-2022 ORIF, fracture, wrist 3.5 mm cortex screws, self-tapping FDA Start: 02-04-2022 ORIF, fracture, wrist 3.5 mm cortex screws, self-tapping FDA Start: 02-04-2022 ORIF, fracture, wrist 3.5 mm cortex screws, self-tapping FDA Start: 02-04-2022 ORIF, fracture, wrist 3.5 mm cortex screws, self-tapping FDA Start: 02-04-2022 ORIF, fracture, wrist 3.5 mm cortex screws, self-tapping FDA Start: 02-04-2022 ORIF, fracture, wrist 3.5 mm cortex screws, self-tapping FDA Start: 02-04-2022 ORIF, fracture, wrist 3.5 mm cortex screws, self-tapping FDA Start: 02-04-2022 ORIF, fracture, wrist 3.5 mm cortex screws, self-tapping FDA Start: 02-04-2022 ORIF, fracture, wrist 3.5 mm cortex screws, self-tapping FDA Start: 02-04-2022 ORIF, fracture, wrist 3.5 mm cortex screws, self-tapping FDA Start: 02-04-2022 ORIF, fracture, wrist 3.5 mm cortex screws, self-tapping FDA Start: 02-04-2022 ORIF, fracture, wrist 3.5 mm cortex screws, self-tapping FDA Start: 02-04-2022 ORIF, fracture, wrist 3.5 mm cortex screws, self-tapping FDA Start: 02-04-2022 Goals Date Patient Goal Desired Activity /State Mental Status Date Assessment Result Facility 02-04-2022 Cognitive function Voice/Name [facility] Work Phone: Clinical Notes 01-28-2021 to 01-15-2024 Kendrick Cabrera MD - 01/15/2024 6:51 PM Del Saucedo APRN.ASSISTANT ASSOCIATE PROFESSOR - 08/21/2023 6:59 PM Marina Vazquez APRN.ASSISTANT ASSOCIATE PROFESSOR - 04/23/2023 2:50 PM EST Note Date & Type Note Facility 01-15-2024 Note HNO ID: [id number] Author: KENDRICK CABRERA MD Service: ? Author Type: Physician Type: Progress Notes Filed: 01/15/2024 19:18 Note Text: Patient presents with: Sore Throat: ST x 1 week HPI: Feeling sick for 1 week. Negative COVID test 3 days ago, worried she has strep throat or pneumonia. Positive symptoms: sore throat, feels a lump in the upper throat today, waxing and waning Cough, chest tightness/burning, Feverish/sweats, Body Aches, Earache, Nasal Congestion, Rhinorrhea, Headache, Negative symptoms: Vomiting, Diarrhea, OTC: Dayquil, salt water. Son's inhaler relieved chest tightness. Smoker. PAST MEDICAL HISTORY No date: NEGATIVE MEDICAL HISTORY MEDICATIONS: Current Outpatient Medications Medication Sig fluticasone (FLONASE) 50 mcg/actuation nasal spray Use 2 Sprays in each nostril once daily. Rinse mouth after use. norelgestromin-ethinyl estradiol (XULANE, ZAFEMY) patch 150-35 mcg/24 hr Apply 1 Patch as directed once each week. No current facility-administered medications for this visit. ALLERGIES: ALLERGIES Allergen Reactions Sulfamethoxazole Other: See Comments Low neutrophils Trimethoprim Other: See Comments Low neutrophils VITALS: BP 138/84 Pulse 101 Temp 36.7 ?C (98 ?F) (Tympanic) Resp 18 Wt 73.5 kg (162 lb 0.6 oz) LMP 01/11/2021 SpO2 98% BMI 31.65 kg/m? PHYSICAL EXAM: GEN: mildly ill appearing HEENT: PERRL, EOMI, conjunctiva clear Ears: canals clear. Remote TM scars. TMs without erythema, bulge, or effusion Sinuses: non-tender frontal sinus, non-tender maxillary sinuses Throat: moist mucous membranes, mild erythema, no exudate Neck: supple, no thyromegaly, no lymphadenopathy HEART: regular rate and rhythm, no murmurs LUNGS: clear to auscultation, no wheezes or crackles, no increased WOB ASSESSMENT/PLAN: 1. Sore throat - ICD9: 462, ICD10: J02.9 (primary diagnosis) - STREP A MOLECULAR (POC) - negative. 2. Acute cough - ICD9: 786.2, ICD10: R05.1 3. Wheezing - ICD9: 786.07, ICD10: R06.2 - suspect viral URI. - Discussed supportive care treatment with rest, cold medicine, and analgesia. - ALBUTEROL SULFATE HFA 90 MCG/ACTUATION AEROSOL INHALER - has used in the past, likely some component of COPD. - INHALATIONAL SPACING DEVICE - BENZONATATE 100 MG CAPSULE Kendrick Cabrera MD [facility] 01-15-2024 History of Present illness Narrative Patient presents with: Sore Throat: ST x 1 week HPI: Feeling sick for 1 week. Negative COVID test 3 days ago, worried she has strep throat or pneumonia. Positive symptoms: sore throat, feels a lump in the upper throat today, waxing and waning Cough, chest tightness/burning, Feverish/sweats, Body Aches, Earache, Nasal Congestion, Rhinorrhea, Headache, Negative symptoms: Vomiting, Diarrhea, OTC: Dayquil, salt water. Son's inhaler relieved chest tightness. Smoker. PAST MEDICAL HISTORY No date: NEGATIVE MEDICAL HISTORY MEDICATIONS: Current Outpatient Medications Medication Sig fluticasone (FLONASE) 50 mcg/actuation nasal spray Use 2 Sprays in each nostril once daily. Rinse mouth after use. norelgestromin-ethinyl estradiol (XULANE, ZAFEMY) patch 150-35 mcg/24 hr Apply 1 Patch as directed once each week. No current facility-administered medications for this visit. ALLERGIES: ALLERGIES Allergen Reactions Sulfamethoxazole Other: See Comments Low neutrophils Trimethoprim Other: See Comments Low neutrophils VITALS: BP 138/84 Pulse 101 Temp 36.7 C (98 F) (Tympanic) Resp 18 Wt 73.5 kg (162 lb 0.6 oz) LMP 01/11/2021 SpO2 98% BMI 31.65 kg/m PHYSICAL EXAM: GEN: mildly ill appearing HEENT: PERRL, EOMI, conjunctiva clear Ears: canals clear. Remote TM scars. TMs without erythema, bulge, or effusion Sinuses: non-tender frontal sinus, non-tender maxillary sinuses Throat: moist mucous membranes, mild erythema, no exudate Neck: supple, no thyromegaly, no lymphadenopathy HEART: regular rate and rhythm, no murmurs LUNGS: clear to auscultation, no wheezes or crackles, no increased WOB ASSESSMENT/PLAN: 1. Sore throat - ICD9: 462, ICD10: J02.9 (primary diagnosis) - STREP A MOLECULAR (POC) - negative. 2. Acute cough - ICD9: 786.2, ICD10: R05.1 3. Wheezing - ICD9: 786.07, ICD10: R06.2 - suspect viral URI. - Discussed supportive care treatment with rest, cold medicine, and analgesia. - ALBUTEROL SULFATE HFA 90 MCG/ACTUATION AEROSOL INHALER - has used in the past, likely some component of COPD. - INHALATIONAL SPACING DEVICE - BENZONATATE 100 MG CAPSULE Kendrick Cabrera MD documented in this encounter [facility] 08-21-2023 Note HNO ID: [id number] Author: DEL WU APRN.ASSISTANT ASSOCIATE PROFESSOR Service: ? Author Type: Nurse Practitioner Type: Progress Notes Filed: 08/21/2023 19:02 Note Text: Subjective HPI Nontoxic-appearing female presents urgent care chief complaint bilateral ear pain. Duration of symptoms 4 days. Associated symptoms bilateral ear discomfort. States recently got over the flu or a similar virus. Presents today for evaluation. Most bothersome symptom today is ear pressure. States has some discomfort. Feels like ears are clogged. No ear trauma otorrhea loss hearing. Denies any fever body aches chills productive cough chest pain shortness of breath pleuritic pain hemoptysis nausea vomiting abdominal pain change in bowel or bladder habits. Past medical history prescription medication use and allergies reviewed. .Patient presents with: Ear Pain: Bilateral ear pain x 4 days PAST MEDICAL HISTORY Diagnosis Date NEGATIVE MEDICAL HISTORY PAST SURGICAL HISTORY Procedure Laterality Date APPENDECTOMY age 12 TONSILLECTOMY AND ADENOIDECTOMY HX age 6 ALLERGIES Sulfamethoxazole and Trimethoprim MEDICATIONS fluticasone (FLONASE) 50 mcg/actuation nasal spray Use 2 Sprays in each nostril once daily. Rinse mouth after use. norelgestromin-ethinyl estradiol (XULANE, ZAFEMY) patch 150-35 mcg/24 hr Apply 1 Patch as directed once each week. acetaminophen (TYLENOL 8 HOUR ORAL) Take by mouth. (Patient not taking: Reported on 04/23/2023) cyclobenzaprine (FLEXERIL) 10 mg tablet Take 1 tablet by mouth three times daily as needed for muscle spasm. (Patient not taking: Reported on 03/17/2021) SUMAtriptan (IMITREX) 25 mg tablet Take 1 tablet by mouth as needed. May repeat dose after 2 hours if ineffective (Patient not taking: Reported on 01/28/2021) buPROPion XL (WELLBUTRIN XL) 300 mg 24 hr tablet Take 1 tablet by mouth once daily. (Patient not taking: Reported on 01/28/2021) albuterol HFA (VENTOLIN HFA) 90 mcg/actuation inhaler Inhale 2 Puffs as instructed every 4 hours as needed for Wheezing/Shortness of Breath. (Patient not taking: Reported on 04/23/2023) Dghndlsrqfznbly-Preymvxgy-NK (BROMFED DM) 2-30-10 mg/5 mL syrup Take 5-10 ml po q6h prn (Patient not taking: Reported on 03/17/2021) pseudoephedrine (SUDAFED) 30 mg tablet Take 1 tablet by mouth every 4 hours as needed. (Patient not taking: Reported on 03/17/2021) fluticasone (FLONASE) 50 mcg/actuation nasal spray Use 1 [place] in each nostril once daily. (Patient not taking: Reported on 04/23/2023) FAMILY HISTORY Problem Relation Age of Onset Diabetes Father type 2 other (parkinsons) Maternal Grandmother Social History Tobacco Use Smoking status: Every Day Packs/day: .5 Types: Cigarettes Start date: 06/25/2003 Smokeless tobacco: Never Substance Use Topics Alcohol use: Yes Comment: rare Drug use: No BP 122/78 Pulse 94 Temp 37.1 ?C (98.8 ?F) (Tympanic) Resp 16 Wt 73.3 kg (161 lb 9.6 oz) LMP 01/11/2021 SpO2 97% BMI 31.56 kg/m? Review of Systems Constitutional: Negative for chills, fever and malaise/fatigue. HENT: Positive for congestion and ear pain. Negative for ear discharge, hearing loss, sinus pain, sore throat and tinnitus. Eyes: Negative for blurred vision, pain, discharge and redness. Respiratory: Negative for cough, hemoptysis, sputum production, shortness of breath, wheezing and stridor. Cardiovascular: Negative for chest pain. Gastrointestinal: Negative for abdominal pain, diarrhea, nausea and vomiting. Musculoskeletal: Negative for myalgias. Skin: Negative for itching and rash. Neurological: Negative for dizziness and headaches. Objective Physical Exam Constitutional: General: She is not in acute distress. Appearance: She is not diaphoretic. HENT: Head: Normocephalic. Jaw: No trismus, tenderness, swelling or pain on movement. Right Ear: Tympanic membrane, ear canal and external ear normal. Left Ear: Tympanic membrane, ear canal and external ear normal. Ears: Comments: Clear fluid noted behind bilateral TMs. Mouth/Throat: Mouth: Mucous membranes are moist. Pharynx: Oropharynx is clear. Uvula midline. No pharyngeal swelling, oropharyngeal exudate, posterior oropharyngeal erythema or uvula swelling. Eyes: Conjunctiva/sclera: Conjunctivae normal. Pupils: Pupils are equal, round, and reactive to light. Cardiovascular: Rate and Rhythm: Normal rate and regular rhythm. Heart sounds: Normal heart sounds. Pulmonary: Effort: Pulmonary effort is normal. No tachypnea, accessory muscle usage or respiratory distress. Breath sounds: Normal breath sounds. No stridor. No wheezing, rhonchi or rales. Abdominal: General: There is no distension. Palpations: Abdomen is soft. Tenderness: There is no abdominal tenderness. There is no guarding or rebound. Musculoskeletal: Cervical back: Normal range of motion and neck supple. No edema, erythema, rigidity or tenderness. No pain with (more content not included)... [facility] 08-21-2023 History of Present illness Narrative Subjective HPI Nontoxic-appearing female presents urgent care chief complaint bilateral ear pain. Duration of symptoms 4 days. Associated symptoms bilateral ear discomfort. States recently got over the flu or a similar virus. Presents today for evaluation. Most bothersome symptom today is ear pressure. States has some discomfort. Feels like ears are clogged. No ear trauma otorrhea loss hearing. Denies any fever body aches chills productive cough chest pain shortness of breath pleuritic pain hemoptysis nausea vomiting abdominal pain change in bowel or bladder habits. Past medical history prescription medication use and allergies reviewed. .Patient presents with: Ear Pain: Bilateral ear pain x 4 days PAST MEDICAL HISTORY Diagnosis Date NEGATIVE MEDICAL HISTORY PAST SURGICAL HISTORY Procedure Laterality Date APPENDECTOMY age 12 TONSILLECTOMY AND ADENOIDECTOMY HX age 6 ALLERGIES Sulfamethoxazole and Trimethoprim MEDICATIONS fluticasone (FLONASE) 50 mcg/actuation nasal spray Use 2 Sprays in each nostril once daily. Rinse mouth after use. norelgestromin-ethinyl estradiol (XULANE, ZAFEMY) patch 150-35 mcg/24 hr Apply 1 Patch as directed once each week. acetaminophen (TYLENOL 8 HOUR ORAL) Take by mouth. (Patient not taking: Reported on 04/23/2023) cyclobenzaprine (FLEXERIL) 10 mg tablet Take 1 tablet by mouth three times daily as needed for muscle spasm. (Patient not taking: Reported on 03/17/2021) SUMAtriptan (IMITREX) 25 mg tablet Take 1 tablet by mouth as needed. May repeat dose after 2 hours if ineffective (Patient not taking: Reported on 01/28/2021) buPROPion XL (WELLBUTRIN XL) 300 mg 24 hr tablet Take 1 tablet by mouth once daily. (Patient not taking: Reported on 01/28/2021) albuterol HFA (VENTOLIN HFA) 90 mcg/actuation inhaler Inhale 2 Puffs as instructed every 4 hours as needed for Wheezing/Shortness of Breath. (Patient not taking: Reported on 04/23/2023) Xxzatuowhchgnhq-Yjvfeqjiv-GT (BROMFED DM) 2-30-10 mg/5 mL syrup Take 5-10 ml po q6h prn (Patient not taking: Reported on 03/17/2021) pseudoephedrine (SUDAFED) 30 mg tablet Take 1 tablet by mouth every 4 hours as needed. (Patient not taking: Reported on 03/17/2021) fluticasone (FLONASE) 50 mcg/actuation nasal spray Use 1 [place] in each nostril once daily. (Patient not taking: Reported on 04/23/2023) FAMILY HISTORY Problem Relation Age of Onset Diabetes Father type 2 other (parkinsons) Maternal Grandmother Social History Tobacco Use Smoking status: Every Day Packs/day: .5 Types: Cigarettes Start date: 06/25/2003 Smokeless tobacco: Never Substance Use Topics Alcohol use: Yes Comment: rare Drug use: No BP 122/78 Pulse 94 Temp 37.1 C (98.8 F) (Tympanic) Resp 16 Wt 73.3 kg (161 lb 9.6 oz) LMP 01/11/2021 SpO2 97% BMI 31.56 kg/m Review of Systems Constitutional: Negative for chills, fever and malaise/fatigue. HENT: Positive for congestion and ear pain. Negative for ear discharge, hearing loss, sinus pain, sore throat and tinnitus. Eyes: Negative for blurred vision, pain, discharge and redness. Respiratory: Negative for cough, hemoptysis, sputum production, shortness of breath, wheezing and stridor. Cardiovascular: Negative for chest pain. Gastrointestinal: Negative for abdominal pain, diarrhea, nausea and vomiting. Musculoskeletal: Negative for myalgias. Skin: Negative for itching and rash. Neurological: Negative for dizziness and headaches. Objective Physical Exam Constitutional: General: She is not in acute distress. Appearance: She is not diaphoretic. HENT: Head: Normocephalic. Jaw: No trismus, tenderness, swelling or pain on movement. Right Ear: Tympanic membrane, ear canal and external ear normal. Left Ear: Tympanic membrane, ear canal and external ear normal. Ears: Comments: Clear fluid noted behind bilateral TMs. Mouth/Throat: Mouth: Mucous membranes are moist. Pharynx: Oropharynx is clear. Uvula midline. No pharyngeal swelling, oropharyngeal exudate, posterior oropharyngeal erythema or uvula swelling. Eyes: Conjunctiva/sclera: Conjunctivae normal. Pupils: Pupils are equal, round, and reactive to light. Cardiovascular: Rate and Rhythm: Normal rate and regular rhythm. Heart sounds: Normal heart sounds. Pulmonary: Effort: Pulmonary effort is normal. No tachypnea, accessory muscle usage or respiratory distress. Breath sounds: Normal breath sounds. No stridor. No wheezing, rhonchi or rales. Abdominal: General: There is no distension. Palpations: Abdomen is soft. Tenderness: There is no abdominal tenderness. There is no guarding or rebound. Musculoskeletal: Cervical back: Normal range of motion and neck supple. No edema, erythema, rigidity or tenderness. No pain with movement. Normal range of motion. Lymphadenopathy: Cervical: No cervical adenopathy. Skin: General: Skin is warm and dry. Neurological: Mental Status: She is alert and oriented to person, place, and time. ASSESSMENT/PLAN: 1. Eustachian tube dysfunction, bilateral - ICD9: 381.81, ICD10: H69.93 No evidence of bacterial infection noted on today's exam. Treat as eustachian tube dysfunction. Antihistamines and Flonase discussed. Patient was educated on supportive therapies. Patient will follow up with primary care provider as needed. Patient was instructed to immediately proceed to emergency room for any new, worsening, or symptoms lasting longer than anticipated. The patient's clinical presentation is otherwise unremarkable at this time. Based on exam and clinical finding, the patient is stable for discharge. Plan of care was discussed with patient. Patient verbalizes understanding and agrees to plan of care. This note was generated using WiLin[employer] software. It may contain errors in wording, punctuation, or spelling. Del Wu APRN.LEO documented in this encounter [facility] 04-23-2023 Note HNO ID: [id number] Author: Marina Veronica APRN.LEO Service: ? Author Type: Nurse Practitioner Type: Progress Notes Filed: 04/23/2023 2:56 PM Note Text: This note was created using shopp. Subjective Alma Delia Dow is a 37 year old female here [...] Relevant Medications cefdinir (OMNICEF) 300 mg capsule [facility] 04-23-2023 History of Present illness Narrative This note was created using shopp. Subjective Alma Delia Dow is a 37 year old female here [...] 300 mg capsule documented in this encounter [facility] 2022 Note [facility] Pap Smear Specimen Adequacy 2022 11:30am Comment . Satisfactory for evaluation. Endocervical and/or squamous metaplasticcells (endocervical component) are present. Comment on above: Satisfactory for wes luation. Endocervical and/or squamous metaplasticcells (endocervical component) are present. 01-28-2021 History of Present illness Narrative Radiology Service Progress Note PATIENT NAME: Alma Delia Dow DATE OF SERVICE: January 28, 2021 TIME: 4:28 PM PATIENT IDENTITY VERIFICATION COMPLETED USING TWO (2) IDENTIFIERS: Name and Date of confirmed by patient verbally. FALL SCREENING: Has the patient had 2 falls in the last year or 1 fall with injury or currently using an Ambulatory Assistive Device (Walker, Cane, Wheelchair, Crutches, etc.)? No PATIENT GENDER DATA: Female. status: : No status: NO. PATIENT RELEVANT IMPLANT DATA REVIEWED: Not Applicable RADIOLOGY DEPARTMENT: General X-ray: Exam(s) Completed: Rib X-Ray: Right Upper Extremity X-Ray(s): Shoulder, AP / TRUE AP / SUPRA OUTLET right PERIPHERAL IV DATA: Not applicable SIGNED BY: RT Jacob(R) January 28, 2021 4:28 PM documented in this encounter [facility] Evaluation note No assessment inform ation available [facility] Work Phone: Evaluation note Diagnosis Acute otitis media, right- Primary Unspecified otitis media [facility] Diagnosis Onset Date Resolution Status Fracture of distal end of left ulna acute Strain of left wrist acute Fracture of distal end of left ulna acute [facility] Work Phone: Evaluation note* Diagnosis Eustachian tube dysfunction, bilateral- Primary documented in this encounter [facility] note* Diagnosis Sore throat- Primary Acute pharyngitis Acute cough Wheezing [facility] Diagnosis Acute pain of right shoulder Contusion of chest wall, unspecified laterality, initial encounter documented in this encounter [facility] Discharge instructions Additional Instructions Follow preprinted instructions from your surgeons office Implant Used?: Yes [facility] Work Phone: Reason for referral (narrative)* Diagnostic Procedure Only (Urgent) - Closed Specialty Diagnoses / Procedures Referred By Contac t Referred To Contact XR IMAGING Diagnoses Acute pain of right shoulder Contusion of chest wall, unspecified laterality, initial encounter Procedures XR RIBS/CHEST 3V AP RIB/OBLS/CXR RT X-RAY RIBS, CHEST 3+ VW Nalini Allen, CRISTINO.ASSISTANT ASSOCIATE PROFESSOR [address] [place] [address] [place] [id number] Referral ID Status Reason Start Date Expiration Date V isits Requested Visits Authorized Closed Auto-Generate d Referral 01/28/2021 02/27/2022 1 1 * Diagnostic Procedure Only (Urgent) - Closed Specialty Diagnoses / Procedures Referred By Contac t Referred To Contact XR IMAGING Diagnoses Acute pain of right shoulder Contusion of chest wall, unspecified laterality, initial encounter Procedures XR SHOULDER GENERAL 3V OR MORE AP/TRUE AP/OTHER RT X-RAY SHOULDER COMPLET MIN 2 VIEWS Nalini Allen APRN.ASSISTANT ASSOCIATE PROFESSOR [address] [place] [address] [place] [address] Referral ID Status Reason Start Date Expiration Date V isits Requested Visits Authorized Closed Auto-Generate d Referral 01/28/2021 02/27/2022 1 1 [facility] Diagnostic Procedure Only (Urgent) - Closed Specialty Diagnoses / Procedures Referred By Contac t Referred To Contact XR IMAGING Diagnoses Acute pain of right shoulder Contusion of chest wall, unspecified laterality, initial encounter Procedures XR RIBS/CHEST 3V AP RIB/OBLS/CXR RT X-RAY RIBS, CHEST 3+ VW Nalini Allen, CRISTINO.ASSISTANT ASSOCIATE PROFESSOR [address] [facility] [place] [address] [place] [address] Referral ID Status Reason Start Date Expiration Date V isits Requested Visits Authorized [id number] Closed Auto-Generate d Referral 01/28/2021 02/27/2022 1 1 [facility] Chief Complaint and Reason for Visit Chief Complaint LEFT ARM PAIN R/T IN JURY LT ORIF RADIUS ULNA Chief Complaint LEFT WRIST INJURY left wrist pain LEFT WRIST LT WRIST - EVAL FRACTURE PATTERN LEFT WRIST Reason for Visit Fracture of distal e nd of left ulna Strain of left wrist Fracture of distal end of left ulna Family History Relationship Condition Age at Onset Recorded Date/T citlali mother Malignant neoplasm Unknown aunt Disorder of thyroid Unknown grandfather Cerebrovascular accident (CVA) Unknown Parkinson's disease Unknown Advance Directives Advance Directive Response Recorded Date/ Time Living Will No February 03 11:56am Power of Tray Line Supervisor No February 03, 2022 11:56am Advance Directive Response Recorded Date/ Time Living Will No February 03 10:56am Power of Tray Line Supervisor No February 03, 2022 10:56am Summary Purpose Additional Source Comments Care Teams (unrecognized sec tion and content) Team Status: Active Member Role Status Dates No Primary Care Physician Family Provider Active No Primary Care Physician Primary Care Provider Active Team Status: Inactive Member Role Status Dates No Primary Care Physician Primary Care Provider Active LILI Long Attending Provider Active Team Status: Inactive Member Role Status Dates No Primary Care Physician Primary Care Provider, Refer ring Provider Active Nitin Scott MD Attending Provider Active Team Status: Inactive Member Role Status Dates No Primary Care Physician Primary Care Provider, Refer ring Provider Active Casey Randy PA, PA Attending Provider Active Team Status: Active Member Role Status Dates No Primary Care Physician Primary Care Provider, Refer ring Provider Active Nitin Scott MD Attending Provider Active Team Status: Inactive Member Role Status Dates No Primary Care Physician Primary Care Provider Active LILLI Prieto Attending Provider, Referring Provi tracy Active Team Status: Active Member Role Status Dates No Primary Care Physician Primary Care Provider Active Nitin Scott MD Attending Provider, Referring Prov ider Active Team Status: Inactive Member Role Status Dates No Primary Care Physician Primary Care Provider Active Nitin Scott MD Attending Provider, Referring Prov ider Active Tub Wash Operator Relationship Specialty Start Date End Date Kyung Potts MD [address] [place] [address] PCP - General Internal Medicine 09/26/18 01/16/22 Goals (unrecognized section and content) Goals may be documented in a n alternate sectionGoals may be documented in an alternate sectionGoals may be documented in an alternate section Source Comments (unrecognize d section and content) In the event this informatio n is protected by the Federal Confidentiality of Alcohol and Drug Abuse Patient Records regulations: The Federal rules restrict any use of the information to criminally investigate or prosecute any alcohol or drug abuse patient.[facility] the event this information is protected by the Federal Confidentiality of Alcohol and Drug Abuse Patient Records regulations: The Federal rules restrict any use of the information to criminally investigate or prosecute any alcohol or drug abuse patient.[facility] the event this information is protected by the Federal Confidentiality of Alcohol and Drug Abuse Patient Records regulations: The Federal rules restrict any use of the information to criminally investigate or prosecute any alcohol or drug abuse patient.[facility] the event this information is protected by the Federal Confidentiality of Alcohol and Drug Abuse Patient Records regulations: The Federal rules restrict any use of the information to criminally investigate or prosecute any alcohol or drug abuse patient.[facility] Reason for Visit (unrecogniz ed section and content) Reason Comments Ear Pain Right ear x4 days Reason Comments Ear Pain Bilateral ear pain x 4 days Reason Comments Sore Throat ST x 1 week INFORMATION SOURCE (unrecogn ized section and content) DATE CREATED AUTHOR 07/26/2023 [facility] DATE CREATED AUTHOR AUTHOR'S ORGANDORINA ATION 01/17/2024 [facility] FOR RECORDS PERTAINING TO PATIENTS WHO ARE [...] BE BASED ON THE PRIMARY CLINICAL RECORDS. [facility]. provides no warranty or guarantee of the accuracy or completeness of information in this document.
[2024-11-06 21:08] LABS: HIV Reactive (Nonreactive); Pro- Brain NATRIURETIC PEPTIDE 317 pg/mL (<=450)
[2024-11-06 21:23] LABS: LDH 467 U/L (84-246)
[2024-11-06 21:35] LABS: Bacteria 0 SEEN /hpf (None Seen); Mucous, Urine 0 SEEN /hpf (<or=2+)
[2024-11-06 21:41] LABS: Color, Urine Straw (Yellow); Glucose, Dipstick Normal (Normal); Ketone-Dipstick Negative (Negative); Leukocyte Esterase-Dipstick Negative /ul (Negative); Nitrite-Dipstick Negative (Negative); Occult Blood-Urine Negative /ul (Negative); Protein-Dipstick 15 mg/dl (Negative); Urine Bilirubin Dipstick Negative (Negative); Urine Clarity Clear (Clear); Urine Urobilinogen Normal (Normal); Urine pH 6.5 (5.0 - 8.0)
[2024-11-06 22:01] LABS: Amphetamine Urine NEGATIVE (<1000 ng/mL); Barbiturate Urine NEGATIVE (< 200 ng/mL); Benzodiazepine Urine NEGATIVE (< 200 ng/mL); Buprenorphine Urine NEGATIVE (< 200 ng/mL); Cocaine Urine NEGATIVE (< 300 ng/mL); Fentanyl, Urine NEGATIVE; Methadone Urine NEGATIVE (< 300 ng/mL); Opiates Urine NEGATIVE (< 300 ng/mL); Oxycodone, Urine NEGATIVE (< 100 ng/mL); PCP Urine NEGATIVE (< 25 ng/mL); THC Urine NEGATIVE (< 50 ng/mL)
[2024-11-06] MEDS: 0.9% Saline Lock 10 ML Syringe IV (22:04)
[2024-11-06] MEDS: Vancomycin HCl 1,500 MG in 0.9% Normal Saline (500mL Bag) 500 ML 250 MG IV (22:05)
[2024-11-06] MEDS: Ibuprofen 600 MG Tablet PO (22:15)
[2024-11-06 22:16] LABS: Red Blood Cells-Urine 0-5 SEEN /hpf (0-5); Squamous Epithelial Cells - UA 0-5 SEEN /hpf (5-10); White Blood Cells 0-5 SEEN /hpf (0-5)
[2024-11-06] MEDS: Potassium Chloride Oral Tablet 20 MEQ 60 MEQ PO (22:47)
[2024-11-06] MEDS: NYSTATIN 500,000 UNIT/5 ML UDC 500000 UNIT PO (22:53)
[2024-11-06] MEDS: guaiFENesin 1,200 MG Tablet 1200 MG PO (22:53)
--- NOTE | 2024-11-06 23:01 | PCM.RX.CS ---
Consult Antibiotic Management Pharmacy has been consulted to manage selected antibiotic: Vancomycin Type of Intervention Type of Consult: New start Suspected Infection Suspected Infection: Pneumonia Labs Labs: Sodium 135 mmol/L (133-145) 11/06/24 11:49 Potassium 2.8 mmol/L (3.3-5.1) L 11/06/24 11:49 Chloride 100 mmol/L (98-108) 11/06/24 11:49 Carbon Dioxide 21.8 mmol/L (21.0-32.0) 11/06/24 11:49 Anion Gap 13 (5-15) 11/06/24 11:49 BUN 13 mg/dL (4-19) 11/06/24 11:49 Creatinine 0.80 mg/dL (0.70-1.20) 11/06/24 11:49 Est GFR (MDRD) Non-Af 97 (>60) 11/06/24 11:49 BUN/Creatinine Ratio 16.6 RATIO (10-20) 11/06/24 11:49 Glucose 105 mg/dL (70-99) H 11/06/24 11:49 Microbiology Microbiology: Microbiology 11/06/24 17:54 Mucosa - Nasopharyngeal Respiratory Panel (PCR) - Final 11/06/24 Unknown Urine, Random Legionella Antigen - Final 11/06/24 Unknown Urine, Random Streptococcus pneumoniae Antigen (M - Final 11/06/24 11:49 Mucosa - Nose SARS-CoV-2, Influenza & RSV (PCR) - Final Dosing Weight Weight used for dosin.8 kg Estimated Creatinine Clearance Estimated Creatinine Clearance: 68 Goal Trough Goal Trough: 15-20 mcg/mL Pharmacy Plan for Drug Dosing Pharmacy Plan for Drug Dosing: Pharmacy Service will continue to monitor and adjust dosing as required. Follow-Up Labs Follow-Up Labs: Trough: Vancomycin Date/Time Labs Ordered Labs to be done on [date and time ordered]: 11/08/24 @3797
[2024-11-07] VITALS (12 sets, daily range): BP systolic 93–117; BP diastolic 58–79; PULSE 68–124; RESP 16–30; TEMP 36.4–38.8; O2SAT 93–99
--- NOTE | 2024-11-07 00:15 | PCM.HOSP.N ---
Hospitalist Note Patient with increasing oxygen requirements, ongoing tachypnea. BL multifocal PNA admission. Will obtain ABG to be cautious.
[2024-11-07] MEDS: Acetaminophen 325 MG Tablet 650 MG PO ×3 (00:48→18:19)
[2024-11-07] MEDS: 0.9% Normal Saline (1000mL) 1,000 ML 100 ML IV (00:49)
[2024-11-07 00:55] LABS: Allen Test Positive; Base Excess 0 mmol/L (-2 to +2); Bicarbonate 22.7 mmol/L (22-26); Blood Gas Specimen Type ART; Mode Not entered; O2 Delivery Device Cannula; PO2 69 mmHG (75-100); SITE L Radial; SO2 96 % (95-99); Total Carbon Dioxide 24 mmol/L; pCO2 28.6 mmHg (35-45); pH 7.51 (7.35-7.45)
[2024-11-07 03:15] LABS: M R Staph aureus DNA By PCR Negative (Negative); Probe Check PASS; Specimen Processing Control PASS
[2024-11-07] MEDS: 0.9% Saline Lock 10 ML Syringe IV ×2 (05:26→21:13)
[2024-11-07] MEDS: Ibuprofen 600 MG Tablet PO ×2 (05:26→19:58)
[2024-11-07 05:45] LABS: Absolute Neutrophil Count 4.8 X10^3/uL (2.0-7.7); Basophil# 0.01 X10^3/uL; Basophil% 0.2 % (0-1); Eosinophil# 0.01 X10^3/uL; Eosinophils% 0.2 % (0-5); Hematocrit 26.8 % (37-47); Hemoglobin 8.9 g/dL (12.0-15.0); Lymphocyte % 3.9 % (19-41); Mean Corp Hgb Conc 33.2 g/dL (32-36); Mean Corpuscular Hgb 30.1 pg (27.0-32.0); Mean Corpuscular Volume 90.5 fL (81-99); Mean Platelet Vol. 11.1 fl (6.2-12.0); Monocyte# 0.08 X10^3/uL; Monocyte% 1.6 % (0-10); NRBC Flagged by Analyzer 0 % (0-5); Neutrophil # 4.78 X10^3/uL (2.7-7.7); Neutrophil % 93.7 % (47-70); POSITIVE DIFFERENTIAL YES; Platelet Count 127 K/mm3 (150-450); RBC Distribution Width CV 15.7 % (11.6-14.6); RBC Distribution Width SD 52.1 fl (35.1-43.9); Red Blood Count 2.96 M/mm3 (4.2-5.4); White Blood Count 5.1 K/mm3 (4.4-11.0)
[2024-11-07 06:22] LABS: AST(SGOT) 89 U/L (<=31); Alanine Aminotransfer ALT/SGPT 39 U/L (<=34); Alkaline Phosphatase 463 U/L (35-104); Anion Gap 12 (5-15); BUN 11 mg/dL (4-19); BUN/Creat Ratio 13.5 RATIO (10-20); Calcium,Total 8.4 mg/dL (7.6-11.0); Carbon Dioxide 18.8 mmol/L (21.0-32.0); Chloride 107 mmol/L (98-108); Creatinine, Serum 0.79 mg/dL (0.70-1.20); EST Glomerular Filtration Rate 99 (>60); Estimated Creatinine Clearance 75.63 ml/min (50-250); Glucose 182 mg/dL (70-99); Magnesium 1.7 mg/dL (1.5-2.2); Potassium 3.8 mmol/L (3.3-5.1); Sodium Level 139 mmol/L (133-145); Total Bilirubin 0.48 mg/dL (0.00-1.30)
[2024-11-07] MEDS: Ipratropium/Albuterol Sulfate 3 ML AMPUL.NEB INHALATION ×2 (08:08→11:48)
--- NOTE | 2024-11-07 08:18 | PCM.PN.HOSP ---
Reason for Visit Reason for Visit: Diagnoses Anemia, unspecified (11/06/24) Hypokalemia (11/06/24) Hypotension, unspecified (11/06/24) Interstitial pulmonary disease, unspecified (11/06/24) Hypoxemia (11/06/24) Subjective Subjective Feeling much better. Had been ill for weeks. Denies IV drug abuse. Objective Data Objective Data Vital Signs: Vital Signs Temp Pulse Resp BP Pulse Ox O2 Del Method O2 Flow Rate 36.4 C L 78 20 H 96/66 94 Nasal Cannula 2 11/07/24 05:22 11/07/24 05:22 11/07/24 05:22 11/07/24 05:22 11/07/24 05:22 11/07/24 05:22 11/07/24 05:22 Oxygen Flow Rate (L/min) 2 Oxygen Delivery Method Nasal Cannula Weight: 55.8 kg Body Mass Index (BMI) 24.0 Intake & Output: Intake and Output for Last 24 Hours 11/05/24 11/06/24 11/07/24 23:59 23:59 23:59 Intake Total 2150 / 2150 530 / 530 Output Total 500 / 500 Balance 1650 / 1650 530 / 530 Lab / Micro Data 11/07/24 04:55 11/07/24 04:55 Labs: Laboratory Results - last 24 hr 11/06/24 11:49: WBC 5.1, RBC 3.08 L, Hgb 9.2 L, Hct 27.3 L, MCV 88.6, MCH 29.9, MCHC 33.7, RDW Std Deviation 50.0 H, RDW Coeff of Deb 15.5 H, Plt Count 155, MPV 11.0, Immature Gran % (Auto) 0.400, Neut % (Auto) 90.1 H, Lymph % (Auto) 4.9 L, [place] % (Auto) 3.4, Eos % (Auto) 1.0, Baso % (Auto) 0.2, Absolute Neuts (auto) 4.6, Absolute Lymphs (auto) 0.25 L, Nucleated RBC % 0, Sodium 135, Potassium 2.8 L, Chloride 100, Carbon Dioxide 21.8, Anion Gap 13, BUN 13, Creatinine 0.80, Estim Creat Clear Calc 68.49, Est GFR (MDRD) Non-Af 97, BUN/Creatinine Ratio 16.6, Glucose 105 H, Lactic Acid < 1.0, Calcium 9.0, Total Bilirubin 0.45, AST 74 H, ALT 42 H, Alkaline Phosphatase 429 H, Lactate Dehydrogenase 467 H, NT pro BNP II 317, Total Protein 6.5, Albumin 3.2 L, Globulin 3.3, Albumin/Globulin Ratio 1.0, HIV 1&2 Antibody Reactive H 11/06/24 17:23: ESR 28, Retic Count 1.09, Immature Retic Fraction 9.90, Retic Hgb Equivalent 29.6 L, Iron 23 L, TIBC 221 L, Iron Saturation 10.4 L, Unsaturated IBC 198 L, Ferritin 1130 H, C-React Prot Ext Range 56.70 H, Procalcitonin 0.53 H, KENNETH-1 Antibody Cancelled, SS-A/Ro IgG Antibody Cancelled, SS-B/La IgG Antibody Cancelled, Sm (Olson) Antibody Cancelled, CONCRETE LAYER Antibody Cancelled, Scl-70 Scleroderma Ab Cancelled, Double Strand DNA Ab Cancelled, Antichromatin Antibodies Cancelled, Centromere B Antibody Cancelled 11/06/24 18:26: ANCA Immunofluorescen Cancelled, c-ANCA Antibody Cancelled, Atypical p-ANCA Cancelled, p-ANCA Antibody Cancelled 11/06/24 18:31: Urine Color Straw, Urine Clarity Clear, Urine pH 6.5, Ur Specific [place] 1.010, Urine Protein 15 H, Urine Glucose (UA) Normal, Urine Ketones Negative, Urine Occult Blood Negative, Urine Nitrite Negative, Urine Bilirubin Negative, Urine Urobilinogen Normal, Ur Leukocyte Esterase Negative, Urine RBC 0-5 SEEN, Urine WBC 0-5 SEEN, Ur Squamous Epith Cells 0-5 SEEN, Urine Bacteria 0 SEEN, Urine Mucus 0 SEEN, Urine Opiates Screen NEGATIVE, U Buprenorphine Qual NEGATIVE, Ur Oxycodone Screen NEGATIVE, Urine Methadone Screen NEGATIVE, Urine Fentanyl Screen NEGATIVE, Ur Barbiturates Screen NEGATIVE, Ur Phencyclidine Scrn NEGATIVE, Ur Amphetamines Screen NEGATIVE, U Benzodiazepines Scrn NEGATIVE, Urine Cocaine Screen NEGATIVE, U Cannabinoids Screen NEGATIVE 11/06/24 22:22: MRSA (PCR) Negative 11/06/24 : Urine Test Negative 11/07/24 04:55: WBC 5.1, RBC 2.96 L, Hgb 8.9 L, Hct 26.8 L, MCV 90.5, MCH 30.1, MCHC 33.2, RDW Std Deviation 52.1 H, RDW Coeff of Deb 15.7 H, Plt Count 127 L, MPV 11.1, Immature Gran % (Auto) 0.400, Neut % (Auto) 93.7 H, Lymph % (Auto) 3.9 L, [place] % (Auto) 1.6, Eos % (Auto) 0.2, Baso % (Auto) 0.2, Absolute Neuts (auto) 4.8, Absolute Lymphs (auto) 0.20 L, Nucleated RBC % 0, Sodium 139, Potassium 3.8, Chloride 107, Carbon Dioxide 18.8 L, Anion Gap 12, BUN 11, Creatinine 0.79, Estim Creat Clear Calc 75.63, Est GFR (MDRD) Non-Af 99, BUN/Creatinine Ratio 13.5, Glucose 182 H, Calcium 8.4, Phosphorus 4.0, Magnesium 1.7, Total Bilirubin 0.48, AST 89 H, ALT 39 H, Alkaline Phosphatase 463 H, Total Protein 6.0, Albumin 3.0 L, Globulin 3.0, Albumin/Globulin Ratio 1.0 Micro: Microbiology 11/06/24 17:54 Mucosa - Nasopharyngeal Respiratory Panel (PCR) - Final 11/06/24 Unknown Urine, Random Legionella Antigen - Final 11/06/24 Unknown Urine, Random Streptococcus pneumoniae Antigen (M - Final 11/06/24 11:49 Mucosa - Nose SARS-CoV-2, Influenza & RSV (PCR) - Final ABG Data ABG results: ABG 11/07/24 00:52 Specimen Type ART Sample Site L Radial pH 7.51 H Bicarbonate Actual 22.7 Total CO2 24 Base Excess 0 O2 Saturation 96 O2 % 6.0 ABG pCO2 28.6 L ABG pO2 69 L Gaston Test Positive O2 Delivery Device Cannula Vent Mode Not entered Radiography Diagnostic Testing: Radiology Impression Chest X-Ray 11/06/24 11:55 IMPRESSION: Lungs are relatively hypoinflated, but appear clear of acute disease. No pleural effusion or pneumothorax is noted. The cardiomediastinal silhouette is within the normal range. Mild thoracic spine dextroscoliosis is seen, with mild degenerative changes present. No acute osseous changes seen. Reading Location: [address] Chest CTA 11/06/24 15:06 IMPRESSION: 1. No pulmonary embolism is identified. Some of the distal pulmonary arteries cannot be evaluated due to suboptimal opacification. 2. Multifocal ground-glass attenuation of both lungs, likely multifocal pneumonia. Reading Location: [facility] Physical Exam Const alert and no apparent distress Constitutional Narrative: up in chair. Became exasperated when told about the +HIV test. HEENT head/scalp atraumatic and moist oral mucous membranes Resp normal respiratory effort, no retractions, no use of accessory muscles and clear to auscultation bilaterally Cardio regular rate, regular rhythm, S1 normal heart sound and S2 normal heart sound GI normal to inspection, nondistended, normoactive bowel sounds, soft to palpation, non-tender and non-distended Assessment & Plan Assessment/Plan (1) Bilateral interstitial pneumonia: PLAN: Diffuse bilaterally. Unclear type. Given the +HIV test, concern for Pneumocystis jiroveci infection. On LVQ and vancomycin. Methylpred Methylpred, BDs, respiratory panel Blood culture pending autoimmune work ordered DW Dr. Cardona, plan for endoscopy. (2) HIV (human immunodeficiency virus infection): PLAN: Concern for active infection, even AIDS. ID consulted. CD4, Discussed with patient about the HIV test, need for additional testing. PLAN: Plan VTE prophylaxis: LMWH. Greater than 50 minutes of which was spent discussing with the patient about the HIV test results, discussing with specialists. Charges/Coding Visit Charges Inpatient E&M: 34735 Subs Hosp L3
--- NOTE | 2024-11-07 09:36 | PCM.PN.INT ---
Assessment & Plan Assessment/Plan (1) HIV (human immunodeficiency virus infection): (2) Hypoxia: PLAN: Plan RECOMMENDATIONS: 1. Supplemental oxygen to maintain saturations at or above 90%. 2. Continue empiric antimicrobials and steroids. 3. Given positive HIV screen, will proceed with bronchoscopy tomorrow, given concern for opportunistic infections. 4. N.p.o. after midnight. IMPRESSIONS: 1. Shortness of breath and hypoxemia Initially felt to be multifocal pneumonia. However, the patient subsequently screened positive for HIV. This would raise the concern for an opportunistic infection. Accordingly, antimicrobial therapy will be deferred to infectious diseases. Will plan to proceed with bronchoscopy tomorrow with BAL. The patient should be made n.p.o. after midnight. Supplemental oxygen will be weaned to maintain saturations at or above 90%. 2. Chronic tobacco dependency Complicates care, management, recovery and prognosis. Smoking cessation is advisable. This note was generated with [employer] dictation software. It may contain incorrect words, spelling, and punctuation that were not noted in checking the note before signing. Subjective Subjective The patient was seen and examined at the bedside this morning. Events from the last 24 hours have been reviewed. The patient is currently afebrile, hemodynamically stable and maintaining appropriate oxygen saturations on 2 L/min via nasal cannula. The patient reported that, overall, she feels much improved from a respiratory perspective since her admission. White blood cell count is normal. Chemistry profile was unremarkable. The patient is HIV test was found to be reactive. Therefore, infectious diseases consultation is going to be obtained. Objective Data Objective Data The patient's most recent lab work, culture data and imaging studies have all been personally reviewed. COVID, influenza and RSV PCR's were negative. Respiratory viral panel was negative. Blood cultures are pending. Strep and urine Legionella antigens were negative. Vital Signs: Vital Signs Temp Pulse Resp BP Pulse Ox O2 Del Method O2 Flow Rate 98.5 F 100 24 H 93/62 95 Nasal Cannula 2 11/07/24 08:24 11/07/24 08:52 11/07/24 08:52 11/07/24 08:24 11/07/24 08:53 11/07/24 08:57 11/07/24 08:57 Oxygen Flow Rate (L/min) 2 Oxygen Delivery Method Nasal Cannula Weight: 123 lb 0.287 oz Body Mass Index (BMI) 24.0 Intake & Output: Intake and Output for Last 24 Hours 11/05/24 11/06/24 11/07/24 23:59 23:59 23:59 Intake Total 2150 / 2150 530 / 530 Output Total 500 / 500 Balance 1650 / 1650 530 / 530 Lab / Micro Data Attestation: I reviewed the patient's lab results. 11/07/24 04:55 11/07/24 04:55 Labs: Laboratory Results - last 24 hr 11/06/24 11:49: WBC 5.1, RBC 3.08 L, Hgb 9.2 L, Hct 27.3 L, MCV 88.6, MCH 29.9, MCHC 33.7, RDW Std Deviation 50.0 H, RDW Coeff of Deb 15.5 H, Plt Count 155, MPV 11.0, Immature Gran % (Auto) 0.400, Neut % (Auto) 90.1 H, Lymph % (Auto) 4.9 L, [place] % (Auto) 3.4, Eos % (Auto) 1.0, Baso % (Auto) 0.2, Absolute Neuts (auto) 4.6, Absolute Lymphs (auto) 0.25 L, Nucleated RBC % 0, Sodium 135, Potassium 2.8 L, Chloride 100, Carbon Dioxide 21.8, Anion Gap 13, BUN 13, Creatinine 0.80, Estim Creat Clear Calc 68.49, Est GFR (MDRD) Non-Af 97, BUN/Creatinine Ratio 16.6, Glucose 105 H, Lactic Acid < 1.0, Calcium 9.0, Total Bilirubin 0.45, AST 74 H, ALT 42 H, Alkaline Phosphatase 429 H, Lactate Dehydrogenase 467 H, NT pro BNP II 317, Total Protein 6.5, Albumin 3.2 L, Globulin 3.3, Albumin/Globulin Ratio 1.0, HIV 1&2 Antibody Reactive H 11/06/24 17:23: ESR 28, Retic Count 1.09, Immature Retic Fraction 9.90, Retic Hgb Equivalent 29.6 L, Iron 23 L, TIBC 221 L, Iron Saturation 10.4 L, Unsaturated IBC 198 L, Ferritin 1130 H, C-React Prot Ext Range 56.70 H, Procalcitonin 0.53 H, KENNETH-1 Antibody Cancelled, SS-A/Ro IgG Antibody Cancelled, SS-B/La IgG Antibody Cancelled, Sm (Olson) Antibody Cancelled, CHARGE ACCOUNT IDENTIFICATION CLERK Antibody Cancelled, Scl-70 Scleroderma Ab Cancelled, Double Strand DNA Ab Cancelled, Antichromatin Antibodies Cancelled, Centromere B Antibody Cancelled 11/06/24 18:26: ANCA Immunofluorescen Cancelled, c-ANCA Antibody Cancelled, Atypical p-ANCA Cancelled, p-ANCA Antibody Cancelled 11/06/24 18:31: Urine Color Straw, Urine Clarity Clear, Urine pH 6.5, Ur Specific [place] 1.010, Urine Protein 15 H, Urine Glucose (UA) Normal, Urine Ketones Negative, Urine Occult Blood Negative, Urine Nitrite Negative, Urine Bilirubin Negative, Urine Urobilinogen Normal, Ur Leukocyte Esterase Negative, Urine RBC 0-5 SEEN, Urine WBC 0-5 SEEN, Ur Squamous Epith Cells 0-5 SEEN, Urine Bacteria 0 SEEN, Urine Mucus 0 SEEN, Urine Opiates Screen NEGATIVE, U Buprenorphine Qual NEGATIVE, Ur Oxycodone Screen NEGATIVE, Urine Methadone Screen NEGATIVE, Urine Fentanyl Screen NEGATIVE, Ur Barbiturates Screen NEGATIVE, Ur Phencyclidine Scrn NEGATIVE, Ur Amphetamines Screen NEGATIVE, U Benzodiazepines Scrn NEGATIVE, Urine Cocaine Screen NEGATIVE, U Cannabinoids Screen NEGATIVE 11/06/24 22:22: MRSA (PCR) Negative 11/06/24 : Urine Test Negative 11/07/24 04:55: WBC 5.1, RBC 2.96 L, Hgb 8.9 L, Hct 26.8 L, MCV 90.5, MCH 30.1, MCHC 33.2, RDW Std Deviation 52.1 H, RDW Coeff of Deb 15.7 H, Plt Count 127 L, MPV 11.1, Immature Gran % (Auto) 0.400, Neut % (Auto) 93.7 H, Lymph % (Auto) 3.9 L, [place] % (Auto) 1.6, Eos % (Auto) 0.2, Baso % (Auto) 0.2, Absolute Neuts (auto) 4.8, Absolute Lymphs (auto) 0.20 L, Nucleated RBC % 0, Sodium 139, Potassium 3.8, Chloride 107, Carbon Dioxide 18.8 L, Anion Gap 12, BUN 11, Creatinine 0.79, Estim Creat Clear Calc 75.63, Est GFR (MDRD) Non-Af 99, BUN/Creatinine Ratio 13.5, Glucose 182 H, Calcium 8.4, Phosphorus 4.0, Magnesium 1.7, Total Bilirubin 0.48, AST 89 H, ALT 39 H, Alkaline Phosphatase 463 H, Total Protein 6.0, Albumin 3.0 L, Globulin 3.0, Albumin/Globulin Ratio 1.0 Micro: Microbiology 11/06/24 17:54 Mucosa - Nasopharyngeal Respiratory Panel (PCR) - Final 11/06/24 Unknown Urine, Random Legionella Antigen - Final 11/06/24 Unknown Urine, Random Streptococcus pneumoniae Antigen (M - Final 11/06/24 11:49 Mucosa - Nose SARS-CoV-2, Influenza & RSV (PCR) - Final ABG Data ABG results: ABG 11/07/24 00:52 Specimen Type ART Sample Site L Radial pH 7.51 H Bicarbonate Actual 22.7 Total CO2 24 Base Excess 0 O2 Saturation 96 O2 % 6.0 ABG pCO2 28.6 L ABG pO2 69 L Gaston Test Positive O2 Delivery Device Cannula Vent Mode Not entered Radiography Diagnostic Testing: Radiology Impression Chest X-Ray 11/06/24 11:55 IMPRESSION: Lungs are relatively hypoinflated, but appear clear of acute disease. No pleural effusion or pneumothorax is noted. The cardiomediastinal silhouette is within the normal range. Mild thoracic spine dextroscoliosis is seen, with mild degenerative changes present. No acute osseous changes seen. Reading Location: [address] Chest CTA 11/06/24 15:06 IMPRESSION: 1. No pulmonary embolism is identified. Some of the distal pulmonary arteries cannot be evaluated due to suboptimal opacification. 2. Multifocal ground-glass attenuation of both lungs, likely multifocal pneumonia. Reading Location: [id number] Physical Exam Const alert and no apparent distress Constitutional Narrative: Sitting in bedside recliner. General Appearance: cooperative HEENT normocephalic, head/scalp atraumatic and moist oral mucous membranes Eyes PERRL, EOMs intact bilaterally and conjunctivae normal Neck supple General: trachea midline Chest inspection of chest normal Resp normal respiratory effort Auscultation: rales Cardio regular rate and regular rhythm GI normal to inspection, nondistended, normoactive bowel sounds Extremity no clubbing, cyanosis or edema Skin no rashes or lesions noted Neuro CN's II-XII intact bilaterally, moves all extremities and no focal motor deficits Psych cooperative and affect normal Charges/Coding Visit Charges Inpatient E&M: 66834 Subs Hosp L2
[2024-11-07] MEDS: Ondansetron 4 MG/2 ML Vial IV ×2 (10:54→19:58)
[2024-11-07] MEDS: Vancomycin HCl 750 MG in 0.9% Normal Saline (250mL Bag) 250 ML 250 MG IV ×2 (10:54→22:18)
[2024-11-07] MEDS: guaiFENesin 1,200 MG Tablet 1200 MG PO ×3 (10:55→20:57)
[2024-11-07] MEDS: Enoxaparin 40 MG/0.4 ML Syringe SC (10:55)
[2024-11-07] MEDS: NYSTATIN 500,000 UNIT/5 ML UDC 500000 UNIT PO ×4 (10:55→21:11)
--- NOTE | 2024-11-07 11:05 | CON.PCM.ID_ITS ---
Assessment & Plan Assessment/Plan (1) Bilateral interstitial pneumonia: (2) HIV (human immunodeficiency virus infection): PLAN: HIV prelim (+) with hypoxia and several months of dyspnea, dry cough, fatigue, weight loss. CT shows bilat interstitial infiltrates. Concern for OI. Will test for ebv, cmv, histo, crypto, toxo. Uags neg. Resp pcr panel neg. D/w pulm, bronch planned for tomorrow; would send for PJP staining, AFB, fungal, and bacterial cultures. High concern for PJP, will check LDH. ABG done. On solumedrol. Has h/o bactrim reaction (ANDREA and bone marrow suppression), so will order clinda and primaquine if available. Cover with vanc/cefepime for now. For HIV, counseled her re: risk factors for HIV spread, natural history of illness, and role of treatment. Will check viral load, genotype, CD4, STI screen, TB IGRA, lipid panel, and hepatitis screen. Mild transaminitis here. She does not want family to know diagnosis. For reported thrush, will do fluconazole. Will follow, thank you, d/w Dr. Adams and Dr. Cardona HPI Consult Data Date of Consult: 11/07/24 HPI Narrative Reason for Consultation: hiv HPI Narrative: ALMA DELIA HAYNES, is a 38 F with minimal PMH, presented 6/4 to ED with 5 months dry cough, dyspnea, 20lb weight loss, chills/sweats/fever, and fatigue. Reports poor appetite due to her shortness of breath. No pain or difficulty swallowing. No rash. No diarrhea. No vision changes. No swollen lymph nodes. No sick contacts. Came to ED, CT showed diffuse interstitial infiltrates, admitted on vanc, levaquin, and solumedrol. HIV prelim test now (+). She does not want her family to know at this point. Full ROS performed and neg except as noted above. Exposure history: Denies h/o IVDU, no known HIV (+) partners. Has 3 children, 12, 16, and 18. Does not know when last hiv test was. Denies any h/o STI in the past. Has a dog and cats at home, no exposure to other animals. Only travel recently was to [place] in August. [facility] Medical History Anemia Migraine headache Gastric reflux Hoarseness Hx of sepsis Smoker Abnormal results of thyroid function studies Malaise and fatigue Unspecified voice and resonance disorder Hair loss Insomnia Home Medications ?Medication ?Instructions ?Recorded ?Last Taken ?Type NK 11/06/24 Unknown History Allergy/AdvReac Type Severity Reaction Status Date / Time sulfamethoxazole (From Allergy Low Verified 11/06/24 11:15 Bactrim) neutrophils trimethoprim (From Bactrim) Allergy Low Verified 11/06/24 11:15 neutrophils Family History Mother Cancer Aunt Thyroid disorder Grandfather CVA (cerebral vascular accident) Parkinsons Surgical History Hx of foot surgery History of oral surgery History of appendectomy History of tonsillectomy Social History household members: significant other current occupational status: employed Smoking Status: Current every day smoker tobacco type: cigarettes alcohol intake: current alcohol intake frequency: a few times a month substance use type: does not use what type of physical activity do you participate in: other Physical Exam Const alert, oriented x3 and no apparent distress General Appearance: cooperative HEENT normocephalic and head/scalp atraumatic Eyes PERRL and EOMs intact bilaterally Neck supple and No nodes Resp clear to auscultation bilaterally Auscultation: diminished lung sounds Cardio regular rate and regular rhythm GI soft to palpation, non-tender and non-distended Extremity General Extremity: Negative for edema Skin no rashes or lesions noted Neuro CN's II-XII intact bilaterally Lab / Micro Data Attestation: I reviewed the patient's lab results. 11/07/24 04:55 11/07/24 04:55 Labs: Laboratory Results - last 24 hr 11/06/24 11:49: WBC 5.1, RBC 3.08 L, Hgb 9.2 L, Hct 27.3 L, MCV 88.6, MCH 29.9, MCHC 33.7, RDW Std Deviation 50.0 H, RDW Coeff of Deb 15.5 H, Plt Count 155, MPV 11.0, Immature Gran % (Auto) 0.400, Neut % (Auto) 90.1 H, Lymph % (Auto) 4.9 L, [place] % (Auto) 3.4, Eos % (Auto) 1.0, Baso % (Auto) 0.2, Absolute Neuts (auto) 4.6, Absolute Lymphs (auto) 0.25 L, Nucleated RBC % 0, Sodium 135, Potassium 2.8 L, Chloride 100, Carbon Dioxide 21.8, Anion Gap 13, BUN 13, Creatinine 0.80, Estim Creat Clear Calc 68.49, Est GFR (MDRD) Non-Af 97, BUN/Creatinine Ratio 16.6, Glucose 105 H, Lactic Acid < 1.0, Calcium 9.0, Total Bilirubin 0.45, AST 74 H, ALT 42 H, Alkaline Phosphatase 429 H, Lactate Dehydrogenase 467 H, NT pro BNP II 317, Total Protein 6.5, Albumin 3.2 L, Globulin 3.3, Albumin/Globulin Ratio 1.0, HIV 1&2 Antibody Reactive H 11/06/24 17:23: ESR 28, Retic Count 1.09, Immature Retic Fraction 9.90, Retic Hgb Equivalent 29.6 L, Iron 23 L, TIBC 221 L, Iron Saturation 10.4 L, U nsaturated IBC 198 L, Ferritin 1130 H, C-React Prot Ext Range 56.70 H, P rocalcitonin 0.53 H, KENNETH-1 Antibody Cancelled, SS-A/Ro IgG Antibody Cancelled, SS-B/La IgG Antibody Cancelled, Sm ([place]) Antibody Cancelled, [employer] Antibody Cancelled, Scl-70 Scleroderma Ab Cancelled, Double Strand DNA Ab Cancelled, Antichromatin Antibodies Cancelled, Centromere B Antibody Cancelled 11/06/24 18:26: ANCA Immunofluorescen Cancelled, c-ANCA Antibody Cancelled, Atypical p-ANCA Cancelled, p-ANCA Antibody Cancelled 11/06/24 18:31: Urine Color Straw, Urine Clarity Clear, Urine pH 6.5, Ur Specific [place] 1.010, Urine Protein 15 H, Urine Glucose (UA) Normal, Urine Ketones Negative, Urine Occult Blood Negative, Urine Nitrite Negative, Urine Bilirubin Negative, Urine Urobilinogen Normal, Ur Leukocyte Esterase Negative, Urine RBC 0-5 SEEN, Urine WBC 0-5 SEEN, Ur Squamous Epith Cells 0-5 SEEN, Urine Bacteria 0 SEEN, Urine Mucus 0 SEEN, Urine Opiates Screen NEGATIVE, U Buprenorphine Qual NEGATIVE, Ur Oxycodone Screen NEGATIVE, Urine Methadone Screen NEGATIVE, Urine Fentanyl Screen NEGATIVE, Ur Barbiturates Screen NEGATIVE, Ur Phencyclidine Scrn NEGATIVE, Ur Amphetamines Screen NEGATIVE, U Benzodiazepines Scrn NEGATIVE, Urine Cocaine Screen NEGATIVE, U Cannabinoids Screen NEGATIVE 11/06/24 22:22: MRSA (PCR) Negative 11/06/24 : Urine Test Negative 11/07/24 04:55: WBC 5.1, RBC 2.96 L, Hgb 8.9 L, Hct 26.8 L, MCV 90.5, MCH 30.1, MCHC 33.2, RDW Std Deviation 52.1 H, RDW Coeff of Deb 15.7 H, Plt Count 127 L, MPV 11.1, Immature Gran % (Auto) 0.400, Neut % (Auto) 93.7 H, Lymph % (Auto) 3.9 L, [place] % (Auto) 1.6, Eos % (Auto) 0.2, Baso % (Auto) 0.2, Absolute Neuts (auto) 4.8, Absolute Lymphs (auto) 0.20 L, Nucleated RBC % 0, Sodium 139, Potassium 3.8, Chloride 107, Carbon Dioxide 18.8 L, Anion Gap 12, BUN 11, Creatinine 0.79, Estim Creat Clear Calc 75.63, Est GFR (MDRD) Non-Af 99, BUN/Creatinine Ratio 13.5, Glucose 182 H, Calcium 8.4, Phosphorus 4.0, Magnesium 1.7, Total Bilirubin 0.48, AST 89 H, ALT 39 H, Alkaline Phosphatase 463 H, Total Protein 6.0, Albumin 3.0 L, Globulin 3.0, Albumin/Globulin Ratio 1.0 Micro: Microbiology 11/06/24 17:54 Mucosa - Nasopharyngeal Respiratory Panel (PCR) - Final 11/06/24 Unknown Urine, Random Legionella Antigen - Final 11/06/24 Unknown Urine, Random Streptococcus pneumoniae Antigen (M - Final 11/06/24 11:49 Mucosa - Nose SARS-CoV-2, Influenza & RSV (PCR) - Final ABG Data ABG results: ABG 11/07/24 00:52 Specimen Type ART Sample Site L Radial pH 7.51 H Bicarbonate Actual 22.7 Total CO2 24 Base Excess 0 O2 Saturation 96 O2 % 6.0 ABG pCO2 28.6 L ABG pO2 69 L [place] Test Positive O2 Delivery Device Cannula Vent Mode Not entered Imaging Radiology Impression Chest X-Ray 11/06/24 11:55 IMPRESSION: Lungs are relatively hypoinflated, but appear clear of acute disease. No pleural effusion or pneumothorax is noted. The cardiomediastinal silhouette is within the normal range. Mild thoracic spine dextroscoliosis is seen, with mild degenerative changes present. No acute osseous changes seen. Reading Location: [id number] Chest CTA 11/06/24 15:06 IMPRESSION: 1. No pulmonary embolism is identified. Some of the distal pulmonary arteries cannot be evaluated due to suboptimal opacification. 2. Multifocal ground-glass attenuation of both lungs, likely multifocal pneumonia. Reading Location: [id number]
[2024-11-07 11:48] LABS: Hepatitis B Surface Antigen Nonreactive (Nonreactive); Hepatitis C Antibody Nonreactive (Nonreactive); LDH 599 U/L (84-246); Syphilis Antibodies Nonreactive (Nonreactive)
[2024-11-07] MEDS: Cefepime HCl 2 GM in 0.9% Normal Saline (100mL MB+) 100 ML IV ×3 (11:54→21:01)
[2024-11-07 12:06] LABS: Hepatitis B Surface Antibody Nonreactive
[2024-11-07] MEDS: Fluconazole 100 MG Tablet 200 MG PO (12:54)
[2024-11-07] MEDS: Clindamycin 600 MG/50 ML BAG 100 MG IV ×2 (14:41→21:02)
[2024-11-07] MEDS: LORazepam 1 MG Tablet PO (18:19)
--- OUTSIDE RECORDS SUMMARY | 2024-11-07 21:08 | XMS RPT_ITS | CCD ---
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 Name Role Phone Unavailable Primary Care Provider Unavailabl e Care Physician, No Primary Primary Care Provider Unavailable Care Physician, No Primary Referring Provider Un available LILLI Melgar Attending Provider MD Nitin Scott Attending Provider Unavailable Primary Care Provider UnavailKyung Thompson MD Primary Care Provider Care Physician, No Primary Primary Care Unava ilShayy Lin Attending Unavailable Shayy Dodson Admitting Unavailable Damian Lorenzo Consulting Unavailable Rick Charles Consulting Unavailable Kee Rodgers Consulting Unavailable Rangel Cardona Consulting Unavailable Martell Yin Consulting Unavailable Martin Rodriguez Consulting Unavailable Irving Torres Consulting Unavailable Krissy Wolfe Consulting Unavailab Miguel Vogt Consulting Unavailable Jimmy Nelson Consulting Unavailable Juan Carlos Padilla Consulting Unavailable Maddie Hess Consulting Unavailable Nan Watson Consulting Unavailable Sabina Balderas Consulting Unavailable Nicole, Davey Consulting Unavailable Wilmer Amin Consulting Unavailable Juan DavidIgor carrion Consulting Unavailable Dhesuresh, Sammy Consulting Unavailable Noah Peterson Consulting Unavailable Suhail Thorpe Consulting Unavailable Antwon Razo Consulting Unavailable Mark Coker Consulting Unavailable Walt Krishnan Consulting Unavailable Shayy Dodson Consulting Unavailable Mora López Attending Unavailable Pb Adams Attending Unavailable Chidi Arellano Consulting Unavailable Rangel Cardona Attending Unavailable Pb Adams Consulting Unavailable Allergies Allergy Classification Reported Allergen(s) Allergy Type Date of Onset Reaction(s) Facility (9 sources) Sulfamethoxazole; Translations: [SULFAMETHOXAZOLE] Drug Allergy 201 9 Other: See [facility] (9 sources) Trimethoprim; Translations: [TRIMETHOPRIM] Drug Allergy 9 Other: See Comments [facility] (1 source) Sulfamethoxazole Drug Allergy 5 [facility] (1 source) Trimethoprim Drug Allergy 5 [facility] Medications Current Medications Medication Drug [...] Active Comment on above: Take by mouth. [id number] 200 actuat albuterol 0.09 mg/actuat metered dose [...] Comment on above: Take 1 capsule by [facility] two times a day for 7 days. 168 hr ethinyl estradiol 0.42638 mg/hr / norelgestromin 0.85036 mg/hr transdermal system (4 sources) Progestin, Estrogen [...] OREN (middle ear effusion), left Use 1 Peel in each nostril once daily. 16 g 2 08/06/2016 01/15/2024 Discontinued Comment on above: Use 1 Peel in each nostril once daily. Use 2 [...] oral solution (4 sources) alpha-Adrenergic Agonist, Uncompetitive L-zbzkad-Y-aspartate Receptor Antagonist, Sigma-1 Agonist Start: 05-02-2018 End: [...] dose after 2 hours if ineffective Problems Problem Classification Problem Date Documented Date Episodic/Chronic Acute and unspecified renal failure (4 sources) Acute renal failure syndrome; Translations: [Acute kidney failure, unspecified] 02-04-2019 Episodic Coagulation and hemorrhagic disorders (4 sources) Platelet count below reference range; Translations: [Thrombocytopenia, unspecified] 02-04-2019 Chronic Deficiency and other anemia (1 source) Anemia, unspecified; Translations: [Anemia, unspecified] Onset: 11-07-2024 Episodic Diseases of white blood cells (4 sources) Leukopenia; Translations: [Decreased white blood cell count, unspecified] 02-04-2019 Chronic E Codes: Adverse effects of medical drugs (4 sources) Adverse reaction to drug; Translations: [Adverse effect of unspecified drugs, medicaments and biological substances, initial encounter] 02-04-2019 Episodic Fluid and electrolyte disorders (9 sources) Hyponatremia; Translations: [Hypo-osmolality and hyponatremia] Onset: 11-07-2024 02-04-2019 Episodic Fracture of upper limb (10 sources) Multiple fractures of forearm; Translations: [Unspecified fracture of left forearm, initial encounter for closed fracture] 02-06-2022 Episodic Headache; including migraine (4 sources) Migraine; Translations: [Migraine, unspecified, not intractable, without status migrainosus] 02-04-2019 Chronic HIV infection (1 source) Asymptomatic human immunodeficiency virus [HIV] infection status; Translations: [Asymptomatic human immunodeficiency virus [HIV] infection status] Onset: 11-07-2024 Chronic Open wounds of extremities (12 sources) Cat bite - wound; Translations: [Open bite of unspecified finger without damage to nail, initial encounter] 02-05-2019 Episodic Other circulatory disease (1 source) Hypotension, unspecified; Translations: [Hypotension, unspecified] Onset: 11-07-2024 Episodic Other injuries and conditions due to external causes (4 sources) Puncture wound - injury; Translations: [Other injury of unspecified body region, initial encounter] 11-06-2016 Episodic Other lower respiratory disease (1 source) Interstitial pulmonary disease, unspecified; Translations: [Interstitial pulmonary disease, unspecified] Onset: 11-07-2024 Chronic Other lower respiratory disease (1 source) Cough; Translations: [Acute cough] 01-15-2024 Episodic Other lower respiratory disease (1 source) Wheezing; Translations: [Wheezing] 01-15-2024 Episodic Other lower respiratory disease (1 source) Hypoxemia; Translations: [Hypoxemia] Onset: 11-07-2024 Episodic Other non-traumatic joint disorders (1 source) [...] unspecified organism] 02-04-2019 Episodic Sprains and strains (4 sources) Injury of wrist; Translations: [Strain of unspecified muscle, fascia and tendon at wrist and hand level, left hand, initial encounter] 06-08-2023 Episodic Substance-related disorders (8 sources) Tobacco dependence syndrome; Translations: [Nicotine dependence, unspecified, uncomplicated] Onset: 03-25-2014 02-04-2019 Chronic Superficial injury; contusion (5 sources) Cat scratch injury; Translations: [Abrasion of left forearm, initial encounter] 02-05-2019 Episodic Urinary tract infections (4 sources) Pyelonephritis; Translations: [Tubulo-interstitial nephritis, not specified as acute or chronic] 02-04-2019 Episodic Results Test Name Value Interpretation Reference Range Facil ity Blood Gases by [facility] 025 NEGIN TEST Positive Normal [facility] Comment on above: Performed By: #### L 509.7001, L501.6710, L503.6030, L100.9950, L503.6550, L101.9900 #### [facility] [address] [place], [address] Base excess Calc (Bld) [Moles/Vol] 0 mmol/L Normal -2 to +2 [facility] Comment on above: Performed By: #### L 509.7001, L501.6710, L503.6030, L100.9950, L503.6550, L101.9900 #### [facility] [address] [place], [address] Blood Gas Type ART [facility] Comment on above: Performed By: #### L 509.7001, L501.6710, L503.6030, L100.9950, L503.6550, L101.9900 #### [facility] [address] [place], [address] CO2 [Moles/Vol] 24 mmol/L Normal [facility] Comment on above: Performed By: #### L 509.7001, L501.6710, L503.6030, L100.9950, L503.6550, L101.9900 #### [facility] [address] [place], [address] FI02 6.0 [facility] Comment on above: Performed By: #### L 509.7001, L501.6710, L503.6030, L100.9950, L503.6550, L101.9900 #### [facility] [address] [place], [address] HCO3 (Bld) [Moles/Vol] 22.7 mmol/L Normal 22-26 [facility] Comment on above: Performed By: #### L 509.7001, L501.6710, L503.6030, L100.9950, L503.6550, L101.9900 #### [facility] [address] [place], [address] Mode Not entered [facility] Comment on above: Performed By: #### L 509.7001, L501.6710, L503.6030, L100.9950, L503.6550, L101.9900 #### [facility] [address] [place], [address] O2 Delivery Dev Cannula Normal [facility] Comment on above: Performed By: #### L 509.7001, L501.6710, L503.6030, L100.9950, L503.6550, L101.9900 #### [facility] [address] [place], [address] pCO2 28.6 mmHg Low 35-45 [facility] Comment on above: Performed By: #### L 509.7001, L501.6710, L503.6030, L100.9950, L503.6550, L101.9900 #### [facility] [address] [place], [address] pH (Bld) 7.51 [pH] High 7.35-7.45 [facility] Comment on above: Performed By: #### L 509.7001, L501.6710, L503.6030, L100.9950, L503.6550, L101.9900 #### [facility] [address] [place], [address] PO2 69 mmHG Low 75-100 [facility] Comment on above: Performed By: #### L 509.7001, L501.6710, L503.6030, L100.9950, L503.6550, L101.9900 #### [facility] [address] [place], [address] SITE L Radial Normal [facility] Comment on above: Performed By: #### L 509.7001, L501.6710, L503.6030, L100.9950, L503.6550, L101.9900 #### [facility] [address] [place], [address] SO2 96 Normal 95-99 [facility] Comment on above: Performed By: #### L 509.7001, L501.6710, L503.6030, L100.9950, L503.6550, L101.9900 #### [facility] [address] [place], [address] CBC W/Diff, Automatedon 06-0 5-2025 Absolute Lymph 0.20 X10 3/uL Low 0.83-4.51 [facility] Comment on above: Performed By: #### L 509.7001, L501.6710, L503.6030, L100.9950, L503.6550, L101.9900 #### [facility] [address] [place], [address] Absolute Neut 4.8 X10 3/uL Normal 2.0-7.7 [facility] Comment on above: Performed By: #### L 509.7001, L501.6710, L503.6030, L100.9950, L503.6550, L101.9900 #### [facility] [address] [place], [address] Basophils/100 WBC (Bld) 0.2 % Normal 0-1 [facility] Comment on above: Performed By: #### L 509.7001, L501.6710, L503.6030, L100.9950, L503.6550, L101.9900 #### [facility] [address] [place], [address] Eosinophils/100 WBC (Bld) 0.2 % Normal 0-5 [facility] Comment on above: Performed By: #### L 509.7001, L501.6710, L503.6030, L100.9950, L503.6550, L101.9900 #### [facility] [address] [place], [address] Erythrocyte distribution width (RBC) [Ratio] 15.7 % High 11.6-14.6 [facility] Comment on above: Performed By: #### L 509.7001, L501.6710, L503.6030, L100.9950, L503.6550, L101.9900 #### [facility] [address] [place], [address] Hematocrit (Bld) [Volume fraction] 26.8 % Low 37-47 [facility] Comment on above: Performed By: #### L 509.7001, L501.6710, L503.6030, L100.9950, L503.6550, L101.9900 #### [facility] [address] [place], [address] Hemoglobin (Bld) [Mass/Vol] 8.9 g/dL Low 12.0-15.0 [facility] Comment on above: Performed By: #### L 509.7001, L501.6710, L503.6030, L100.9950, L503.6550, L101.9900 #### [facility] [address] [place], [address] IG% 0.400 Normal 0.0-0.9 [facility] Comment on above: Result Comment: IG% - Immature Granulocytes (promyelocytes, myelocytes and metamyelocytes) > 1% indicates that a LEFT SHIFT is Present. Performed By: #### L 509.7001, L501.6710, L503.6030, L100.9950, L503.6550, L101.9900 #### [facility] [address] [place], [address] Lymphocytes/100 WBC (Bld) 3.9 % Low 19-41 [facility] Comment on above: Performed By: #### L 509.7001, L501.6710, L503.6030, L100.9950, L503.6550, L101.9900 #### [facility] [address] [place], [address] MCH (RBC) [Entitic mass] 30.1 pg Normal 27.0-32.0 [facility] Comment on above: Performed By: #### L 509.7001, L501.6710, L503.6030, L100.9950, L503.6550, L101.9900 #### [facility] [address] [place], [address] MCHC (RBC) [Mass/Vol] 33.2 g/dL Normal 32-36 [facility] Comment on above: Performed By: #### L 509.7001, L501.6710, L503.6030, L100.9950, L503.6550, L101.9900 #### [facility] [address] [place], [address] MCV (RBC) [Entitic vol] 90.5 fL Normal 81-99 [facility] Comment on above: Performed By: #### L 509.7001, L501.6710, L503.6030, L100.9950, L503.6550, L101.9900 #### [facility] [address] [place], [address] Monocytes/100 WBC (Bld) 1.6 % Normal 0-10 [facility] Comment on above: Performed By: #### L 509.7001, L501.6710, L503.6030, L100.9950, L503.6550, L101.9900 #### [facility] [address] [place], [address] Neutrophils/100 WBC (Bld) 93.7 % High 47-70 [facility] Comment on above: Performed By: #### L 509.7001, L501.6710, L503.6030, L100.9950, L503.6550, L101.9900 #### [facility] [address] [place], [address] Nucleated RBC (Bld) [#/Vol] 0 10*3/uL Normal 0-5 [facility] Comment on above: Performed By: #### L 509.7001, L501.6710, L503.6030, L100.9950, L503.6550, L101.9900 #### [facility] [address] [place], [address] Platelet mean volume (Bld) [Entitic vol] 11.1 fL Normal 6.2-12.0 [facility] Comment on above: Performed By: #### L 509.7001, L501.6710, L503.6030, L100.9950, L503.6550, L101.9900 #### [facility] [address] [place], [address] Platelets (Bld) [#/Vol] 127 10*3/uL Low 150-450 [facility] Comment on above: Performed By: #### L 509.7001, L501.6710, L503.6030, L100.9950, L503.6550, L101.9900 #### [facility] [address] [place], [address] RBC (Bld) [#/Vol] 2.96 10*6/uL Low 4.2-5.4 [facility] Comment on above: Performed By: #### L 509.7001, L501.6710, L503.6030, L100.9950, L503.6550, L101.9900 #### [facility] [address] [place], [address] RDW SD 52.1 fl High 35.1-43.9 [facility] Comment on above: Performed By: #### L 509.7001, L501.6710, L503.6030, L100.9950, L503.6550, L101.9900 #### [facility] [address] [place], [address] WBC (Bld) [#/Vol] 5.1 10*3/uL Normal 4.4-11.0 [facility] Comment on above: Performed By: #### L 509.7001, L501.6710, L503.6030, L100.9950, L503.6550, L101.9900 #### [facility] [address] [place], [address] Comprehensive Metabolic Prof mton 11-07-2024 Albumin [Mass/Vol] 3.0 g/dL Low 3.5-5.0 [facility] Comment on above: Performed By: #### L 509.7001, L501.6710, L503.6030, L100.9950, L503.6550, L101.9900 #### [facility] [address] [place], [address] Albumin/Globulin [Mass ratio] 1.0 {ratio} Normal 0.9-2.4 [facility] Comment on above: Performed By: #### L 509.7001, L501.6710, L503.6030, L100.9950, L503.6550, L101.9900 #### [facility] [address] [place], [address] ALK PHOS 463 U/L High 35-104 [facility] Comment on above: Performed By: #### L 509.7001, L501.6710, L503.6030, L100.9950, L503.6550, L101.9900 #### [facility] [address] [place], [address] ALT [Catalytic activity/Vol] 39 U/L High <=34 [facility] Comment on above: Performed By: #### L 509.7001, L501.6710, L503.6030, L100.9950, L503.6550, L101.9900 #### [facility] [address] [place], [address] AST [Catalytic activity/Vol] 89 U/L High <=31 [facility] Comment on above: Performed By: #### L 509.7001, L501.6710, L503.6030, L100.9950, L503.6550, L101.9900 #### [facility] [address] [place], [address] Bilirubin [Mass/Vol] 0.48 mg/dL Normal 0.00-1.30 [facility] Comment on above: Performed By: #### L 509.7001, L501.6710, L503.6030, L100.9950, L503.6550, L101.9900 #### [facility] [address] [place], [address] BUN/CRE 13.5 RATIO Normal 10-20 [facility] Comment on above: Performed By: #### L 509.7001, L501.6710, L503.6030, L100.9950, L503.6550, L101.9900 #### [facility] [address] [place], [address] Calcium [Mass/Vol] 8.4 mg/dL Normal 7.6-11.0 [facility] Comment on above: Performed By: #### L 509.7001, L501.6710, L503.6030, L100.9950, L503.6550, L101.9900 #### [facility] [address] [place], [address] Chloride [Moles/Vol] 107 mmol/L Normal 98-108 [facility] Comment on above: Performed By: #### L 509.7001, L501.6710, L503.6030, L100.9950, L503.6550, L101.9900 #### [facility] [address] [place], [address] CO2 [Moles/Vol] 18.8 mmol/L Low 21.0-32.0 [facility] Comment on above: Performed By: #### L 509.7001, L501.6710, L503.6030, L100.9950, L503.6550, L101.9900 #### [facility] [address] [place], [address] Creatinine [Mass/Vol] 0.79 mg/dL Normal 0.70-1.20 [facility] Comment on above: Performed By: #### L 509.7001, L501.6710, L503.6030, L100.9950, L503.6550, L101.9900 #### [facility] [address] [place], [address] ECRCL 75.63 ml/min Normal 50-250 [facility] Comment on above: Performed By: #### L 509.7001, L501.6710, L503.6030, L100.9950, L503.6550, L101.9900 #### [facility] [address] [place], [address] GAP 12 Normal 5-15 [facility] Comment on above: Performed By: #### L 509.7001, L501.6710, L503.6030, L100.9950, L503.6550, L101.9900 #### [facility] [address] [place], [address] GFR/1.73 sq M.predicted among non-blacks MDRD (S/P/Bld) [Vol rate/Area] 99 mL/min/{1.73_m2} Normal >60 [facility] Comment on above: Result Comment: mL/m in/1.73m2 CKD-EPI Creatinine Equation (2020) Performed By: #### L 509.7001, L501.6710, L503.6030, L100.9950, L503.6550, L101.9900 #### [facility] [address] [place], [address] Globulin (S) [Mass/Vol] 3.0 g/dL Normal 2.2-4.2 [facility] Comment on above: Performed By: #### L 509.7001, L501.6710, L503.6030, L100.9950, L503.6550, L101.9900 #### [facility] [address] [place], [address] Glucose [Mass/Vol] 182 mg/dL High 70-99 [facility] Comment on above: Performed By: #### L 509.7001, L501.6710, L503.6030, L100.9950, L503.6550, L101.9900 #### [facility] [address] [place], [address] Potassium [Moles/Vol] 3.8 mmol/L Normal 3.3-5.1 [facility] Comment on above: Performed By: #### L 509.7001, L501.6710, L503.6030, L100.9950, L503.6550, L101.9900 #### [facility] [address] [place], [address] Sodium [Moles/Vol] 139 mmol/L Normal 133-145 [facility] Comment on above: Performed By: #### L 509.7001, L501.6710, L503.6030, L100.9950, L503.6550, L101.9900 #### [facility] [address] [place], [address] T PROT 6.0 g/dL Normal 5.9-8.4 [facility] Comment on above: Performed By: #### L 509.7001, L501.6710, L503.6030, L100.9950, L503.6550, L101.9900 #### [facility] [address] [place], [address] Urea nitrogen [Mass/Vol] 11 mg/dL Normal 4-19 [facility] Comment on above: Performed By: #### L 509.7001, L501.6710, L503.6030, L100.9950, L503.6550, L101.9900 #### [facility] [address] [place], [address] Consultation - Infectious Dx on 11-07-2024 Consultation - Infectious Dx [facility] Medical Records Department [address] [place] [address] Consultation - Infectious Dx 11/07/24 1105 MR#: [id number] Acct: [id number] Name: ALMA DELIA DOW Rep #: [id number] : 1985 38 From: Chidi Arellano MD PCP: Care Physician,No Primary Status:ADM CAROLEE Location: [place] [address] Assessment Plan Assessment/Plan (1) Bilateral interstitial pneumonia: (2) HIV (human immunodeficiency virus infection): PLAN: HIV prelim (+) with hypoxia and several months of dyspnea, dry cough, fatigue, weight loss. CT shows bilat interstitial infiltrates. Concern for OI. Will test for ebv, cmv, histo, crypto, toxo. Uags neg. Resp pcr panel neg. D/w pulm, bronch planned for tomorrow; would send for PJP staining, AFB, fungal, and bacterial cultures. High concern for PJP, will check LDH. ABG done. On solumedrol. Has h/o bactrim reaction (ANDREA and bone marrow suppression), so will order clinda and primaquine if available. Cover with vanc/cefepime for now. For HIV, counseled her re: risk factors for HIV spread, natural history of illness, and role of treatment. Will check viral load, genotype, CD4, STI screen, TB IGRA, lipid panel, and hepatitis screen. Mild transaminitis here. She does not want family to know diagnosis. For reported thrush, will do fluconazole. Will follow, thank you, d/w Dr. Adams and Dr. Cardona HPI Consult Data Date of Consult: 11/07/24 HPI Narrative Reason for Consultation: hiv HPI Narrative: ALMA DELIA DOW, is a 38 F with minimal PMH, presented 11/06 to ED with 5 months dry cough, dyspnea, 20lb weight loss, chills/sweats/fever, and fatigue. Reports poor appetite due to her shortness of breath. No pain or difficulty swallowing. No rash. No diarrhea. No vision changes. No swollen lymph nodes. No sick contacts. Came to ED, CT showed diffuse interstitial infiltrates, admitted on vanc, levaquin, and solumedrol. HIV prelim test now (+). She does not want her family to know at this point. Full ROS performed and neg except as noted above. Exposure history: Denies h/o IVDU, no known HIV (+) partners. Has 3 children, 12, 16, and 18. Does not know when last hiv test was. Denies any h/o STI in the past. Has a dog and cats at home, no exposure to other animals. Only travel recently was to [place] in August. [facility] Medical History Anemia Migraine headache Gastric reflux Hoarseness Hx of sepsis Smoker Abnormal results of thyroid function studies Malaise and fatigue Unspecified voice and resonance disorder Hair loss Insomnia Home Medications ???Medication ???Instructions ???Recorded ???Last Taken ???Type NK 11/06/24 Unknown History Allergy/AdvReac Type Severity Reaction Status Date / Time sulfamethoxazole (From Allergy Low Verified 11/06/24 11:15 Bactrim) neutrophils trimethoprim (From Bactrim) Allergy Low Verified 11/06/24 11:15 neutrophils Family History Mother Cancer Aunt Thyroid disorder Grandfather CVA (cerebral vascular accident) Parkinsons Surgical History Hx of foot surgery History of oral surgery History of appendectomy History of tonsillectomy Social History household members: significant other current occupational status: employed Smoking Status: Current every day smoker tobacco type: cigarettes alcohol intake: current alcohol intake frequency: a few times a month substance use type: does not use what type of physical activity do you participate in: other Physical Exam Const alert, oriented x3 and no apparent distress General Appearance: cooperative HEENT normocephalic and head/scalp atraumatic Eyes PERRL and EOMs intact bilaterally Neck supple and No nodes Resp clear to auscultation bilaterally Auscultation: diminished lung sounds Cardio regular rate and regular rhythm GI soft to palpation, non-tender and non-distended Extremity General Extremity: Negative for edema Skin no rashes or lesions noted Neuro CN's II-XII intact bilaterally Lab / Micro Data Attestation: I reviewed the patient's lab results. 11/07/24 04:55 11/07/24 04:55 Labs: Laboratory Results - last 24 hr 11/06/24 11:49: WBC 5.1, RBC 3.08 L, Hgb 9.2 L, Hct 27.3 L, MCV 88.6, MCH 29.9, MCHC 33.7, RDW Std Deviation 50.0 H, RDW Coeff of Deb 15.5 H, Plt Count 155, MPV 11.0, Immature Gran % (Auto) 0.400, N eut % (Auto) 90.1 H, Lymph % (Auto) 4.9 L, Hughes % (Auto) 3.4, Eos % (Auto) 1.0, Baso % (Auto) 0.2, Absolute Neuts (auto) 4.6, Absolute Lymphs (auto) 0.25 L, Nucleated RBC % 0, Sodium 135, Potassium 2.8 L, Chloride 100, Carbon Dioxide 21.8, Anion Gap 13, BUN 13, Creatinine 0 (more content not included)... Normal [facility] Hepatitis B Surface Antibody on 11-07-2024 HEP B Surf Ab Non-Reactive Normal [facility] Comment on above: Result Comment: <8.5 mIU/mL: Non-Reactive 8.5<= x <11.5 mIU/mL: Indeterminate >=11.5 mIU/mL: Reactive Non Reactive: Inconsistent with immunity less than <10 mIU/mL Reactive: Consistent with immunity greater than or equal to 10 mIU/mL Performed By: #### L 509.4191, L501.6710, L503.6030, L100.9950, L503.6550, L101.9900 #### [facility] [address] [place], [place], [id number] Hepatitis C Antibodyon 11-07 Hepatitis C Ab Non-Reactive Normal Nonreactive [facility] Comment on above: Order Comment: Reaso n for Exam: transaminitis Result Comment: Reac tive: Presumptive evidence of antibodies to HCV. Follow CDC recommendations for supplemental testing. Non-Reactive: Antibodies to HCV were not detected; does not exclude the possibility of exposure to HCV Reactive Results are presumptive evidence of antibodies to HCV. Follow CDC recommendations for supplemental testing. Order confirmation testing: HCV Quant by PCR testing - HCVPCR #[id number] Non Reactive: < 0.8 Equivocal: >/= 0.8 to < 1.0 Reactive: >/= 1.0 The [facility] requires that a reactive/equivocal HCV antibody result be sent out for confirmation. HCV Quant by PCR testing. Performed By: #### L 509.7001, L501.6710, L503.6030, L100.9950, L503.6550, L101.9900 #### [facility] [address] [place], [place], [id number] 11-07-2024 HEP B Surf Ag Non-Reactive Normal Nonreactive [facility] Comment on above: Order Comment: Reaso n for Exam: transaminitis Result Comment: Reac tive: Presumptive evidence of HBV. Repeatedly reactive samples must be confirmed using a neutralization test ([employer] HBsAg Confirmatory Test) Non-Reactive: HBsAg not detected; does not exclude the possibility of exposure to HBV Performed By: #### L 509.7001, L501.6710, L503.6030, L100.9950, L503.6550, L101.9900 #### [facility] [address] [place], [address] LDHon 11-07-2024 LDH 599 U/L High 84-246 [facility] Comment on above: Order Comment: Reaso n for Exam: transaminitis Performed By: #### L 509.7001, L501.6710, L503.6030, L100.9950, L503.6550, L101.9900 #### [facility] [address] [place], [address] M R Staph Aureus DNA by PCRo n 11-07-2024 MRSA DNA ASSAY Negative Normal Negative [facility] Comment on above: Performed By: #### L 509.7001, L501.6710, L503.6030, L100.9950, L503.6550, L101.9900 #### [facility] [address] [place], [address] Magnesiumon 11-07-2024 Magnesium [Mass/Vol] 1.7 mg/dL Normal 1.5-2.2 [facility] Comment on above: Performed By: #### L 509.7001, L501.6710, L503.6030, L100.9950, L503.6550, L101.9900 #### [facility] [address] [place], [place], [id number] Phosphoruson 11-07-2024 Phosphate [Mass/Vol] 4.0 mg/dL Normal 2.7-4.5 [facility] Comment on above: Performed By: #### L 509.7001, L501.6710, L503.6030, L100.9950, L503.6550, L101.9900 #### [facility] [address], [address] Syphilis Antibodieson 2024 Syphilis Abs Non-Reactive Normal Nonreactive [facility] Comment on above: Order Comment: Reaso n for Exam: transaminitis Performed By: #### L 509.7001, L501.6710, L503.6030, L100.9950, L503.6550, L101.9900 #### [facility] [address] [place], [address] DEDRICK Comprehensive Panelon DEDRICK TABLE TNP Normal [facility] Comment on above: Result Comment: WRON G TEST Performed By: #### L 3100.5440, L3300.1200 #### [facility] [address] [place], [address] ANTI-CENT B AB TNP Normal [facility] Comment on above: Result Comment: WRON G TEST Performed By: #### L 3100.5440, L3300.1200 #### [facility] [address] [place], [address] ANTI-KENNETH-1 TNP Normal [facility] Comment on above: Result Comment: WRON G TEST Performed By: #### L 3100.5440, L3300.1200 #### [facility] [address] [place], [address] ANTICHROMATIN TNP Normal [facility] Comment on above: Result Comment: WRON G TEST Performed By: #### L 3100.5440, L3300.1200 #### [facility] [address] [place], [address] ANTISCLERODERM TNP Normal [facility] Comment on above: Result Comment: WRON G TEST Performed By: #### L 3100.5440, L3300.1200 #### [facility] [address] [place], [address] BOX PULLER Ab TNP Normal [facility] Comment on above: Result Comment: WRON G TEST Performed By: #### L 3100.5440, L3300.1200 #### [facility] [address] [place], [address] TABARES Ab TNP Normal [facility] Comment on above: Result Comment: WRON G TEST Performed By: #### L 3100.5440, L3300.1200 #### [facility] [address] [place], [address] ANTI-DNA (DS)AB Normal [facility] Comment on above: Result Comment: WRON G TEST Performed By: #### L 3100.5440, L3300.1200 #### [facility] [address] [place], [address] ANTI-SS-A Normal [facility] Comment on above: Result Comment: WRON G TEST Performed By: #### L 3100.5440, L3300.1200 #### [facility] [address] [place], [address] ANTI-SS-B Normal [facility] Comment on above: Result Comment: WRON G TEST Performed By: #### L 3100.5440, L3300.1200 #### [facility] [address] [place], [address] ANCAon 11-06-2024 Cytoplasmic Ab Normal Neg:<1:20 [facility] Comment on above: Result Comment: DUPL ICATE Performed By: #### L 3100.5440, L3300.1200 #### [facility] [address] [place], [address] Perinuclear Ab. Normal Neg:<1:20 [facility] Comment on above: Result Comment: DUPL ICATE Performed By: #### L 3100.5440, L3300.1200 #### [facility] [address] [place], [address] CBC W/Diff, Automatedon 06-0 Absolute Lymph 0.25 X10 3/uL Low 0.83-4.51 [facility] Comment on above: Performed By: #### L 500.4050, L503.6005, L100.0100 #### [facility] [address] [place], [address] Absolute Neut 4.6 X10 3/uL Normal 2.0-7.7 [facility] Comment on above: Performed By: #### L 500.4050, L503.6005, L100.0100 #### [facility] [address] [place], [address] Basophils/100 WBC (Bld) 0.2 % Normal 0-1 [facility] Comment on above: Performed By: #### L 500.4050, L503.6005, L100.0100 #### [facility] [address] [place], [address] Eosinophils/100 WBC (Bld) 1.0 % Normal 0-5 [facility] Comment on above: Performed By: #### L 500.4050, L503.6005, L100.0100 #### [facility] [address] [place], [address] Erythrocyte distribution width (RBC) [Ratio] 15.5 % High 11.6-14.6 [facility] Comment on above: Performed By: #### L 500.4050, L503.6005, L100.0100 #### [facility] [address] [place], [address] Hematocrit (Bld) [Volume fraction] 27.3 % Low 37-47 [facility] Comment on above: Performed By: #### L 500.4050, L503.6005, L100.0100 #### [facility] [address] [place], [address] Hemoglobin (Bld) [Mass/Vol] 9.2 g/dL Low 12.0-15.0 [facility] Comment on above: Performed By: #### L 500.4050, L503.6005, L100.0100 #### [facility] [address] [place], [address] IG% 0.400 Normal 0.0-0.9 [facility] Comment on above: Result Comment: IG% - Immature Granulocytes (promyelocytes, myelocytes and metamyelocytes) > 1% indicates that a LEFT SHIFT is Present. Performed By: #### L 500.4050, L503.6005, L100.0100 #### [facility] [address] [place], [address] Lymphocytes/100 WBC (Bld) 4.9 % Low 19-41 [facility] Comment on above: Performed By: #### L 500.4050, L503.6005, L100.0100 #### [facility] [address] [place], [address] MCH (RBC) [Entitic mass] 29.9 pg Normal 27.0-32.0 [facility] Comment on above: Performed By: #### L 500.4050, L503.6005, L100.0100 #### [facility] [address] [place], [address] MCHC (RBC) [Mass/Vol] 33.7 g/dL Normal 32-36 [facility] Comment on above: Performed By: #### L 500.4050, L503.6005, L100.0100 #### [facility] [address] [place], [address] MCV (RBC) [Entitic vol] 88.6 fL Normal 81-99 [facility] Comment on above: Performed By: #### L 500.4050, L503.6005, L100.0100 #### [facility] [address] [place], [address] Monocytes/100 WBC (Bld) 3.4 % Normal 0-10 [facility] Comment on above: Performed By: #### L 500.4050, L503.6005, L100.0100 #### [facility] [address] [place], [address] Neutrophils/100 WBC (Bld) 90.1 % High 47-70 [facility] Comment on above: Performed By: #### L 500.4050, L503.6005, L100.0100 #### [facility] [address] [place], [address] Nucleated RBC (Bld) [#/Vol] 0 10*3/uL Normal 0-5 [facility] Comment on above: Performed By: #### L 500.4050, L503.6005, L100.0100 #### [facility] [address] [place], [address] Platelet mean volume (Bld) [Entitic vol] 11.0 fL Normal 6.2-12.0 [facility] Comment on above: Performed By: #### L 500.4050, L503.6005, L100.0100 #### [facility] [address] [place], [address] Platelets (Bld) [#/Vol] 155 10*3/uL Normal 150-450 [facility] Comment on above: Performed By: #### L 500.4050, L503.6005, L100.0100 #### [facility] [address] [place], [address] RBC (Bld) [#/Vol] 3.08 10*6/uL Low 4.2-5.4 [facility] Comment on above: Performed By: #### L 500.4050, L503.6005, L100.0100 #### [facility] [address] [place], [address] RDW SD 50.0 fl High 35.1-43.9 [facility] Comment on above: Performed By: #### L 500.4050, L503.6005, L100.0100 #### [facility] [address] [place], [address] WBC (Bld) [#/Vol] 5.1 10*3/uL Normal 4.4-11.0 [facility] Comment on above: Performed By: #### L 500.4050, L503.6005, L100.0100 #### [facility] [address] [place], [address] CRPon 11-06-2024 C-REACTIVE PROT 56.70 mg/L High 0.0-3.0 [facility] Comment on above: Performed By: #### L 509.7001, L501.6710, L503.6030, L100.9950, L503.6550, L101.9900 #### [facility] [address] [place], [address] CTA Chest W/WO Contraston CTA Chest W/WO Contrast [facility] [address] [place] [address] CTA Chest W/WO Contrast MR#: [id number] Acct: [id number] Name: ALMA DELIA DOW Rep #: [id number] : 1985 F 38 From: Yanick Davila MD PCP: Care Physician,No Primary Status: ADM IN Study: CTA Chest W/WO Contrast Date of Exam: 11/06/24 Exam# [id number] Ordering Dr: Parish Frias MD EXAM: CT Angiography Chest Without and With Intravenous Contrast CLINICAL INDICATION: SHORTNESS OF BREATH, HYPOXIA, HISTORY OF SMOKING A TECHNIQUE: Axial computed tomographic angiography images of the chest without and with intravenous contrast. This CT exam was performed using one or more of the following dose reduction techniques: automated exposure control, adjustment of the mA and/or kV according to patient size, and/or use of iterative reconstruction technique. MIP reconstructed images were created and reviewed. COMPARISON: No relevant prior studies available. FINDINGS: LIMITATIONS: Suboptimal opacification of the pulmonary arteries. PULMONARY ARTERIES: No pulmonary embolism is identified. Some of the distal pulmonary arteries cannot be evaluated due to suboptimal opacification. AORTA: No acute findings. No thoracic aortic aneurysm. LUNGS AND PLEURAL SPACES: Multifocal ground-glass attenuation of both lungs, likely multifocal pneumonia. No mass. No significant effusion. HEART: Unremarkable. No cardiomegaly. No significant pericardial effusion. No evidence of RV dysfunction. BONES/JOINTS: No acute fracture. No dislocation. SOFT TISSUES: Unremarkable. LYMPH NODES: Unremarkable. No enlarged lymph nodes. CT/CTA Chest W/WO Contrast IMPRESSION: 1. No pulmonary embolism is identified. Some of the distal pulmonary arteries cannot be evaluated due to suboptimal opacification. 2. Multifocal ground-glass attenuation of both lungs, likely multifocal pneumonia. Reading Location: [facility] CC: Dr. Parish Frias MD; No Primary Care Physician Surveillance Camera Technician: Signed Normal [facility] Chest PA and Lateralon 11-06 Chest PA and Lateral [facility] [address] [place], [place] [address] Chest PA and Lateral MR#: [id number] Acct: [id number] Name: ALMA DELIA DOW Rep #: [id number] : 1985 F 38 From: Martell Wyman PCP: Care Physician,No Primary Status: REG ER Study: Chest PA and Lateral Date of Exam: 11/06/24 Exam# [id number] Ordering Dr: Parish Frias MD PROCEDURE: CHEST PA AND LATERAL 11/06/2024 REASON FOR EXAM: COUGH, FEVER, WHEEZING TECHNIQUE: Frontal and lateral views of the chest. COMPARISON: AP chest of 01/02/2019. RAD/Chest PA and Lateral IMPRESSION: Lungs are relatively hypoinflated, but appear clear of acute disease. No pleural effusion or pneumothorax is noted. The cardiomediastinal silhouette is within the normal range. Mild thoracic spine dextroscoliosis is seen, with mild degenerative changes present. No acute osseous changes seen. Reading Location: [id number] CC: Dr. Parish Frias MD; No Primary Care Physician Surveillance Camera Technician: Signed Normal [facility] Comprehensive Metabolic Prof ilon 11-06-2024 Albumin [Mass/Vol] 3.2 g/dL Low 3.5-5.0 [facility] Comment on above: Performed By: #### L 500.4050, L503.6005, L100.0100 #### [facility] [address] [place], [place], [address] Albumin/Globulin [Mass ratio] 1.0 {ratio} Normal 0.9-2.4 [facility] Comment on above: Performed By: #### L 500.4050, L503.6005, L100.0100 #### [facility] [address] [place], [address] ALK PHOS 429 U/L High 35-104 [facility] Comment on above: Performed By: #### L 500.4050, L503.6005, L100.0100 #### [facility] [address] [place], [address] ALT [Catalytic activity/Vol] 42 U/L High <=34 [facility] Comment on above: Performed By: #### L 500.4050, L503.6005, L100.0100 #### [facility] [address] [place], [address] AST [Catalytic activity/Vol] 74 U/L High <=31 [facility] Comment on above: Performed By: #### L 500.4050, L503.6005, L100.0100 #### [facility] [address] [place], [address] Bilirubin [Mass/Vol] 0.45 mg/dL Normal 0.00-1.30 [facility] Comment on above: Performed By: #### L 500.4050, L503.6005, L100.0100 #### [facility] [address] [place], [address] BUN/CRE 16.6 RATIO Normal 10-20 [facility] Comment on above: Performed By: #### L 500.4050, L503.6005, L100.0100 #### [facility] [address] [place], [address] Calcium [Mass/Vol] 9.0 mg/dL Normal 7.6-11.0 [facility] Comment on above: Performed By: #### L 500.4050, L503.6005, L100.0100 #### [facility] [address] [place], [address] Chloride [Moles/Vol] 100 mmol/L Normal 98-108 [facility] Comment on above: Performed By: #### L 500.4050, L503.6005, L100.0100 #### [facility] [address] [place], [address] CO2 [Moles/Vol] 21.8 mmol/L Normal 21.0-32.0 [facility] Comment on above: Performed By: #### L 500.4050, L503.6005, L100.0100 #### [facility] [address] [place], [address] Creatinine [Mass/Vol] 0.80 mg/dL Normal 0.70-1.20 [facility] Comment on above: Performed By: #### L 500.4050, L503.6005, L100.0100 #### [facility] [address] [place], [address] ECRCL 68.49 ml/min Normal 50-250 [facility] Comment on above: Performed By: #### L 500.4050, L503.6005, L100.0100 #### [facility] [address] [place], [address] GAP 13 Normal 5-15 [facility] Comment on above: Performed By: #### L 500.4050, L503.6005, L100.0100 #### [facility] [address] [place], [address] GFR/1.73 sq M.predicted among non-blacks MDRD (S/P/Bld) [Vol rate/Area] 97 mL/min/{1.73_m2} Normal >60 [facility] Comment on above: Result Comment: mL/m in/1.73m2 CKD-EPI Creatinine Equation (2020) Performed By: #### L 500.4050, L503.6005, L100.0100 #### [facility] [address] [place], [address] Globulin (S) [Mass/Vol] 3.3 g/dL Normal 2.2-4.2 [facility] Comment on above: Performed By: #### L 500.4050, L503.6005, L100.0100 #### [facility] [address] [place], [address] Glucose [Mass/Vol] 105 mg/dL High 70-99 [facility] Comment on above: Performed By: #### L 500.4050, L503.6005, L100.0100 #### [facility] [address] [place], [address] Potassium [Moles/Vol] 2.8 mmol/L Low 3.3-5.1 [facility] Comment on above: Performed By: #### L 500.4050, L503.6005, L100.0100 #### [facility] [address] [place], [address] Sodium [Moles/Vol] 135 mmol/L Normal 133-145 [facility] Comment on above: Performed By: #### L 500.4050, L503.6005, L100.0100 #### [facility] [address] [place], [address] T PROT 6.5 g/dL Normal 5.9-8.4 [facility] Comment on above: Performed By: #### L 500.4050, L503.6005, L100.0100 #### [facility] [address] [place], [address] Urea nitrogen [Mass/Vol] 13 mg/dL Normal 4-19 [facility] Comment on above: Performed By: #### L 500.4050, L503.6005, L100.0100 #### [facility] [address] [place], [address] Consultation - Intensiviston 11-06-2024 Consultation - Raise Driller [facility] Medical Records Department [address] [place] [address] Consultation - Raise Driller 11/06/24 1831 MR#: [id number] Acct: [id number] Name: ALMA DELIA DOW Rep #: [id number] : 1985 38 From: Walt Krishnan MD PCP: Care Physician,No Primary Status:ADM IN Location: [place] [address] HPI Consult Data Date of Consult: 11/06/24 HPI Narrative HPI Narrative: ALMA DELIA DOW, is a 38 F who presents [facility] Medical History Anemia Migraine headache Gastric reflux Hoarseness Hx of sepsis Smoker Abnormal results of thyroid function studies Malaise and fatigue Unspecified voice and resonance disorder Hair loss Insomnia Home Medications ???Medication ???Instructions ???Recorded ???Last Taken ???Type NK 11/06/24 Unknown History Allergy/AdvReac Type Severity Reaction Status Date / Time sulfamethoxazole (From Allergy Low Verified 11/06/24 11:15 Bactrim) neutrophils trimethoprim (From Bactrim) Allergy Low Verified 11/06/24 11:15 neutrophils Family History Mother Cancer Aunt Thyroid disorder Grandfather CVA (cerebral vascular accident) Parkinsons Surgical History Hx of foot surgery History of oral surgery History of appendectomy History of tonsillectomy Social History (Updated 11/06/24 @ 12:17 by Marilyn Gramajo) household members: significant other current occupational status: employed Smoking Status: Current every day smoker tobacco type: cigarettes alcohol intake: current alcohol intake frequency: a few times a month substance use type: does not use what type of physical activity do you participate in: other Objective Data Objective Data Vital Signs: Vital Signs Last response 3 Temperature 39.4 C H 11/06/24 16:47 Temperature Source Oral 11/06/24 16:47 Pulse Rate 120 H 11/06/24 16:47 Respiratory Rate 20 H 11/06/24 16:47 Respiratory Effort Short of Breath 11/06/24 17:14 Respiratory Depth Normal 11/06/24 17:14 Respiratory Pattern Normal 11/06/24 17:14 Blood Pressure 125/72 H 11/06/24 16:47 Blood Pressure Mean 89 11/06/24 16:47 Blood Pressure Source Monitor 11/06/24 16:47 Blood Pressure Position Semi-Fowlers 11/06/24 16:47 Blood Pressure Location Left Arm 11/06/24 16:47 Pulse Ox 93 11/06/24 18:00 Oxygen Delivery Method Nasal Cannula 11/06/24 18:00 Oxygen Flow Rate (L/min) 3 11/06/24 18:00 I O: I O Last 24 Hours 3 11/05/24 11/06/24 11/06/24 23:59 11:59 23:59 Intake Total 2150 / 2150 Output Total 500 / 500 Balance 1650 / 1650 I O: Total Stay 3 11/06/24 11:14 thru 11/06/24 18:07 Intake Total 2150 Output Total 500 Balance 1650 Current Meds Ordered / Administered: Current meds ordered / Administered 3 Generic Name Dose Route Start Last Admin Trade Name Freq PRN Reason Stop Dose Admin Acetaminophen 650 mg 11/06/24 16:42 11/06/24 16:53 Acetaminophen 325 Mg Tablet PO 650 mg Q6H PRN PRN Administration Pain 1-10 Or Fever>100.7 Albuterol Sulfate 2.5 mg 11/06/24 16:42 Albuterol 2.5 Mg/3 Ml Vial.Neb. INHALATION Q2H PRN PRN SOB /OR WHEEZING Albuterol/Ipratropium 3 ml 11/06/24 16:42 Ipratropium/Albuterol Sulfate 3 Ml Ampul.Neb INHALATION Q4H.RT SHANIA Enoxaparin Sodium 40 mg 11/07/24 10:00 Enoxaparin 40 Mg/0.4 Ml Syringe SC DAILY SHANIA Guaifenesin 1,200 mg 11/06/24 22:00 Guaifenesin 1,200 Mg Tablet PO BID SHANIA Levofloxacin 750 mg in 150 mls @ 100 mls/hr 11/07/24 10:00 Levaquin Iv IV 11/14/24 10:01 Q24 SHANIA Sodium Chloride 250 mls @ 15 mls/hr 11/06/24 17:03 IV .[id number] PRN Saline Flush Sodium Chloride 250 mls @ 15 mls/hr 11/06/24 17:03 IV .[id number] PRN Additional IVPB Infusion Methylprednisolone 40 mg 11/06/24 22:00 Methylprednisolone 40 Mg/Ml Vial IV Q8 SHANIA Nicotine 21 mg 11/07/24 10:00 Nicotine 21 Mg Patch TD DAILY SHANIA Ondansetron HCl 4 mg 11/06/24 16:42 Ondansetron 4 Mg/2 Ml Vial IV Q8H PRN PRN NAUSEA/VOMITING Senna/Docusate Sodium 2 tablet 11/06/24 16:42 Senna/Docusate Sodium 1 Tablet PO BID PRN PRN Constipation Sodium Chloride 10 - 40 ml 11/06/24 17:03 0.9% Saline Lock 10 Ml Syringe IV UD PRN SALINE FLUSH Lab / Micro Data 11/06/24 11:49 11/06/24 11:49 Labs: Laboratory Results - last 24 hr 11/06/24 11:49: WBC 5.1, RBC 3.08 L, Hgb 9.2 L, Hct 27.3 L, MCV 88.6, MCH 29.9, MCHC 33.7, RDW Std Deviation 50.0 H, RDW Coeff of Deb 15.5 H, Plt Count 155, MPV 11.0, Immature Gran % (Auto) 0.400, N eut % (Auto) 90.1 H, Lymph % (Auto) 4.9 L, Hughes % (Auto) 3.4, Eos % (Auto) 1.0, Baso % (Auto) 0.2, Absolute Neuts (auto) 4.6, Abs (more content not included)... Normal [facility] Emergency Department Summary on 11-06-2024 Emergency Department Summary [facility] Medical Records Department [address] [place] [address] Emergency Department Summary 11/06/24 MR#: [id number] Acct: [id number] Name: ALMA DELIA DOW Rep #: [id number] : 1985 38 From: Parish Frais MD PCP: Care Physician,No Primary Status:REG ER Location: ED HPI History of Present Illness Chief Complaint: Shortness of Breath Detail of Chief Complaint: Shortness of breath, nonproductive cough presently, documented Tmax 105.0 ??? Informant: patient and spouse/S.O. Onset/Context/Timing Onset: Weeks (Onset of illness approximately 3 weeks ago) Context: Sudden Onset Timing: Continuous and Waxes and wanes Quality: Cough, wheezing, fever Location: Respiratory Current Severity: Mild Maximum Severity: Severe Worsened by: Nothing specific Relieved by: Nothing Associated Symptoms Associated Symptoms: Per HPI narrative Narrative Narrative: Patient is a 38-year-old female. She has been ill for approximately 3 weeks. She initially had a productive cough of colored sputum. Her cough is now nonproductive. She completed a course of doxycycline 3 days ago. In spite of completing the antibiotic she continues to have fevers. Fevers been waxing and waning for the past 3 weeks. She does report mild congestion. Denies headache. Denies ear pain. She does report mild shortness of breath with cough. She denies chest discomfort. She denies history of VTE. She denies leg pain, swelling discoloration other than the bruising from falling yesterday. She denies GI or symptoms. She is a smoker. She was seen at the [facility] urgent care and diagnosed with a clinical pneumonia. Prior similar symptoms: Yes Recent Illness/Hospitalizati on: Yes PFSH PFSH Medical History Anemia Migraine headache Gastric reflux Hoarseness Hx of sepsis Smoker Abnormal results of thyroid function studies Malaise and fatigue Unspecified voice and resonance disorder Hair loss Insomnia Home Medications ???Medication ???Instructions ???Recorded ???Last Taken ???Type NK 11/06/24 Unknown History Allergy/AdvReac Type Severity Reaction Status Date / Time sulfamethoxazole (From Allergy Low Verified 11/06/24 11:15 Bactrim) neutrophils trimethoprim (From Bactrim) Allergy Low Verified 11/06/24 11:15 neutrophils Family History Mother Cancer Aunt Thyroid disorder Grandfather CVA (cerebral vascular accident) Parkinsons Surgical History Hx of foot surgery History of oral surgery History of appendectomy History of tonsillectomy Social History (Updated 11/06/24 @ 12:17 by Marilyn Gramajo) household members: significant other current occupational status: employed Smoking Status: Current every day smoker tobacco type: cigarettes alcohol intake: current alcohol intake frequency: a few times a month substance use type: does not use what type of physical activity do you participate in: other ROS ROS ED Constitutional Constitutional ED: Reports chills, fever(s) and sweats; Denies subjective or weight loss Eyes Eyes: Denies blurry vision or change in vision ENT ENT ED: Reports sore throat; Denies ear pain or rhinorrhea Cardiovascular Cardiovascular: Denies chest pain, orthopnea, palpitations or paroxysmal nocturnal dyspnea Respiratory/Chest Respiratory/Chest: Reports cough and dyspnea; Denies dyspnea on exertion, orthopnea, paroxysmal nocturnal dyspnea or sputum Gastrointestinal Gastrointestinal: Reports nausea; Denies abdominal pain or vomiting Genitourinary Genitourinary ED: Denies dysuria, hematuria or urinary frequency Musculoskeletal Musculoskeletal: Reports arthralgias and myalgias; Denies back pain Integumentary Denies rash Neurologic Neurologic: Reports weakness; Denies headache(s) or paresthesias Endocrine Endocrinology: Reports cold intolerance and heat intolerance Hematologic/Lymphatic Hematologic/Lymphatic : Reports systems reviewed and no addt'l complaints, except as documented EXAM Physical Exam Const Vital Signs: 11/06/24 11:15 11/06/24 12:07 11/06/24 12:16 Temperature 98.4 F 98.1 F Temperature Source Oral Oral Pulse Rate 117 H 102 H 103 H Respiratory Rate 16 16 18 Respiratory Depth Respiratory Pattern Normal Blood Pressure 94/64 85/49 L Blood Pressure Mean 74 61 Pulse Ox 98 98 Oxygen Delivery Method Room Air 11/06/24 12:18 11/06/24 13:14 11/06/24 15:00 Temperature Temperature Source Pulse Rate 98 100 Respiratory Rate 17 17 Respiratory Depth Normal Respiratory Pattern Normal Blood Pressure 94/66 100/61 Blood Pressure Mean 75 74 Pulse Ox 99 96 Oxygen Delivery Method Room (more content not included)... Normal [facility] Erythrocyte Sed Rateon 11-06 SED RATE 28 mm/hr Normal 0-30 [facility] Comment on above: Performed By: #### L 509.7001, L501.6710, L503.6030, L100.9950, L503.6550, L101.9900 #### [facility] [address] [place], [address] Ferritinon 11-06-2024 Ferritin [Mass/Vol] 1130 ng/mL High 22-378 [facility] Comment on above: Performed By: #### L 509.7001, L501.6710, L503.6030, L100.9950, L503.6550, L101.9900 #### [facility] [address] [place], [address] H AND P Exam - Hospitaliston 11-06-2024 H&P Exam - Hospitalist [facility] Medical Records Department [address] [place] [address] H P Exam - Hospitalist 11/06/24 1549 MR#: [id number] Acct: [id number] Name: ALMA DELIA DOW Rep #: [id number] : 1985 38 From: Shayy Dodson DO PCP: Care Physician,No Primary Status:ADM IN Location: [place] [address] HPI - General General Date of Admission: 11/06/24 Date of Service: 11/06/24 Chief Complaint: Shortness of breath HPI Narrative ALMA DELIA DOW, is a 38 F who presented to the emergency department [facility] on 11/06/2024 with a chief complaint of shortness of breath, nonproductive cough and fevers. She reports her Tmax at home has been 105 degrees. She reports that she has been acutely ill for about 3 weeks but has been feeling poorly for about 4 months. She states she has had intermittent fevers and cough. She sought attention for the first time for the symptoms about 3 weeks ago at which time she was prescribed doxycycline. She completed the antibiotic course 3 days ago but continues to feel poorly. She has had weight loss due to decreased appetite, fevers, chills, rigors, mild congestion and cough that has been productive up into the last 24 hours or so. She does not have a family history of autoimmune disease. She denies any rashes but does complain of myalgias particularly in her legs. Vital signs on presentation showed a temperature of 98.4, heart rate 117, respiratory 16, blood pressure was 94/64 and pulse ox was 98% on room air initially. CBC shows a normal white count but it does show an anemia with a hemoglobin of 9.2. Baseline recently is unclear. She has a history of thrombocytopenia but currently her platelet count is elevated at 155,000. Chemistry panel shows significant hypokalemia with potassium of 2.8 but was otherwise unremarkable. Lactic acid was less than 1. LFTs are slightly abnormal with an AST of 74 and an ALT of 42. Alk phos is elevated at 429,000. Chest x-ray was overtly unremarkable. CTA was performed due to her symptoms and showed no PE but multifocal ground glass attenuation in both lungs consistent with multifocal pneumonia. She was treated with [facility] emergency department and request for admission was made. [facility] Medical History Anemia Migraine headache Gastric reflux Hoarseness Hx of sepsis Smoker Abnormal results of thyroid function studies Malaise and fatigue Unspecified voice and resonance disorder Hair loss Insomnia Home Medications ???Medication ???Instructions ???Recorded ???Last Taken ???Type NK 11/06/24 Unknown History Allergy/AdvReac Type Severity Reaction Status Date / Time sulfamethoxazole (From Allergy Low Verified 11/06/24 11:15 Bactrim) neutrophils trimethoprim (From Bactrim) Allergy Low Verified 11/06/24 11:15 neutrophils Family History Mother Cancer Aunt Thyroid disorder Grandfather CVA (cerebral vascular accident) Parkinsons Surgical History Hx of foot surgery History of oral surgery History of appendectomy History of tonsillectomy Social History household members: significant other current occupational status: employed Smoking Status: Current every day smoker tobacco type: cigarettes alcohol intake: current alcohol intake frequency: a few times a month substance use type: does not use what type of physical activity do you participate in: other ROS Constitutional Constitutional: Reports anorexia, change in weight, chills, fatigue, fever(s), malaise, night sweats and weakness Eyes Eyes: Denies blurry vision, change in eye color, change in vision, discharge from eye(s), double vision, erythema, eye pain, loss of vision or other ENT HEENT: Reports nasal congestion; Denies abnormal hearing, dysphagia, ear pain, epistaxis, headache(s), hearing loss, nasal discharge, post nasal drip, sinus pressure, sore throat or other Cardiovascular Cardiovascular: Reports dyspnea on exertion; Denies chest pain, claudication, edema, lightheadedness, orthopnea, palpitations, paroxysmal nocturnal dyspnea, rapid heart rate, syncope or other Respiratory/Chest Respiratory/Chest: Reports cough, dyspnea, excessive phlegm production, productive cough, shortness of breath at rest, shortness of breath with exertion and wheezing; Denies hemoptysis or other Gastrointestinal Gastrointestinal: Reports nausea; Denies abdominal pain, coffee ground emesis, constipation, diarrhea, dyspepsia, hematemesis, hematochezia, loose stools, melena, vomiting or other Genitourinary Genitourinary: Denies burning urination, difficulty urinating, dysuria, hematuria, nocturia, urinary frequency, urinary hesitancy (more content not included)... Normal [facility] HIVon 11-06-2024 HIV Reactive Abnormal Nonreactive [facility] Comment on above: Result Comment: Non- Reactive Reactive Repeatedly reactive samples must be confirmed according to CDC recommended confirmatory algorithms. The subresults for either HIVAG or AHIV can be used as an aid in the selection of the confirmation algorithm for reactive samples. Send out specimens with Reactive results to [facility] for confirmation. Order the HIV antibody detection and differentiation: #[id number] Performed By: #### L 509.7001, L501.6710, L503.6030, L100.9950, L503.6550, L101.9900 #### [facility] [address] [place], [address] Iron+Iron Binding Capacityon 11-06-2024 IRON SATURATION 10.4 Low 13-59 [facility] Comment on above: Result Comment: AMENDED REPORT 11/06/241944 IRON SATURATION previously reported as: 10.0 L % Performed By: #### L 509.7001, L501.6710, L503.6030, L100.9950, L503.6550, L101.9900 #### [facility] [address] [place], [address] TIBC 221 ug/dL Low 250-450 [facility] Comment on above: Performed By: #### L 509.7001, L501.6710, L503.6030, L100.9950, L503.6550, L101.9900 #### [facility] [address] [place], [address] L503.7505on 11-06-2024 Natriuretic peptide B (Bld) [Mass/Vol] 317 pg/mL Normal <=450 [facility] Comment on above: Result Comment: Hear t Failure Unlikely: < 300 pg/mL Heart Failure Likely < 50 Years: > 450 pg/mL 50-75 Years: > 900 pg/mL >75 Years: > 1800 pg/mL Performed By: #### L 509.7001, L501.6710, L503.6030, L100.9950, L503.6550, L101.9900 #### [facility] [address] [place], [address] L509.7001on 11-06-2024 Procalcitonin 0.53 ng/mL High <=0.10 [facility] Comment on above: Result Comment: Inte rpretation: <0.10-0.25 ng/mL: Antibiotic therapy discouraged. Bacterial infection unlikely. 0.25-0.50 ng/mL: Antibiotic therapy encouraged. Bacterial infection possible. >0.50 ng/mL: Antibiotic therapy strongly encouraged. Suggestive of presence of bacterial infection. PCT should always be interpreted in the clinical context of the patient. Therefore, clinicians should use the PCT results in conjunction with other laboratory findings and clinical signs of the patient. Performed By: #### L 509.7001, L501.6710, L503.6030, L100.9950, L503.6550, L101.9900 #### [facility] [address] [place], [address] LDHon 11-06-2024 LDH 467 U/L High 84-246 [facility] Comment on above: Performed By: #### L 509.7001, L501.6710, L503.6030, L100.9950, L503.6550, L101.9900 #### [facility] [address] [place], [address] Lactic Acidon 11-06-2024 Lactate [Moles/Vol] mmol/L Normal 0.0-2.0 [facility] Comment on above: Order Comment: Y Performed By: #### L 509.7001, L501.6710, L503.6030, L100.9950, L503.6550, L101.9900 #### [facility] [address] [place], [address] Legionella Antigen Urineon 0 11-06-2024 LEGU Comments: Only Recommended for severe cases of pneumonia Only Recommended for severe cases of pneumonia Legionella Antigen result interpretation: L pneumo Ag Ur Ql Negative Presumptive negative for Legionella pneumophila serogroup 1 antigen in urine, suggesting no recent or current infection. Legionella Ag, Urine Negative (See interpretation below) Normal [facility] Comment on above: Performed By: #### L 509.7001, L501.6710, L503.6030, L100.9950, L503.6550, L101.9900 #### [facility] [address] [place], [address] M100.678on 11-06-2024 M100.678 SARS-CoV-2 (COVID 19 ) Negative INFLUENZA A Negative INFLUENZA B Negative RSV PCR Negative Normal [facility] Comment on above: Performed By: #### L 509.7001, L501.6710, L503.6030, L100.9950, L503.6550, L101.9900 #### [facility] [address] [place], [place], [id number] ,Urineon 11-06-2024 Beta HCG ( test) Ql (U) Negative Normal [facility] Comment on above: Result Comment: Very dilute urine specimens, as indicated by a low specific gravity, may not contain sales support representative levels of hCG. If is still suspected, a first morning urine specimen should be collected 48 hours later and tested. Performed By: #### L 509.7001, L501.6710, L503.6030, L100.9950, L503.6550, L101.9900 #### [facility] [address] [place], [place], [id number] RESPIRATORY PANEL MOLECULARo n 11-06-2024 RP PANEL ADENOVIRUS Not Detected INFLUENZA A Not Detected INFLUENZA A (SUBTYPE H1) Not Detected INFLUENZA A (SUBTYPE H3) Not Detected INFLUENZA B Not Detected HUMAN METAPHNEUMO Not Detected PARAINFLUENZA 1 Not Detected PARAINFLUENZA 2 Not Detected PARAINFLUENZA 3 Not Detected PARAINFLUENZA 4 Not Detected RHINOVIRUS Not Detected RSV A Not Detected RSV B Not Detected Normal [facility] Comment on above: Performed By: #### L 509.7001, L501.6710, L503.6030, L100.9950, L503.6550, L101.9900 #### [facility] [address] [place], [address] Retic Panelon 11-06-2024 IM RET FRACTION 9.90 Normal 3.00-15.90 [facility] Comment on above: Performed By: #### L 509.7001, L501.6710, L503.6030, L100.9950, L503.6550, L101.9900 #### [facility] [address] [place], [place], [id number] RET-HE 29.6 pg Low 30-35 [facility] Comment on above: Performed By: #### L 509.7001, L501.6710, L503.6030, L100.9950, L503.6550, L101.9900 #### [facility] [address] [place], [place], [id number] Retic Count 1.09 Normal 0.5-1.5 [facility] Comment on above: Performed By: #### L 509.7001, L501.6710, L503.6030, L100.9950, L503.6550, L101.9900 #### [facility] [address] [place], [place], [id number] Strep pneumoniae Antig(UR,CS F)on 11-06-2024 STPAG Comments: Only Recommended for severe cases of pneumonia URINE INTERPRETATION Strep pneumoniae Antig(UR,CSF) Strep pneumoniae Antig(UR,CSF) Negative Urine Presumptive negative for pneumococcal pneumonia, suggesting no current or recent pneumococcal infection. Infection due to S pneumoniae cannot be ruled out since the antigen present in the sample may be below the detection limit of the test. Strep pneumo Test Negative URINE (See interpretation below) Normal [facility] Comment on above: Performed By: #### L 509.7001, L501.6710, L503.6030, L100.9950, L503.6550, L101.9900 #### [facility] [address] [facility] [address] [place], [address] Urinalysis, Completeon 11-06 EPI,SQUAMOUS 0-5 SEEN Normal 5-10 [facility] Comment on above: Order Comment: Urine , Random Performed By: #### L 509.7001, L501.6710, L503.6030, L100.9950, L503.6550, L101.9900 #### [facility] [address] [place], [place], [id number] RBC 0-5 SEEN Normal 0-5 [facility] Comment on above: Order Comment: Urine , Random Performed By: #### L 509.7001, L501.6710, L503.6030, L100.9950, L503.6550, L101.9900 #### [facility] [address] [place], [address] WBC 0-5 SEEN Normal 0-5 [facility] Comment on above: Order Comment: Urine , Random Performed By: #### L 509.7001, L501.6710, L503.6030, L100.9950, L503.6550, L101.9900 #### [facility] [address] [place], [address] BACTERIA 0 SEEN Normal None Seen [facility] Comment on above: Order Comment: Urine , Random Performed By: #### L 509.7001, L501.6710, L503.6030, L100.9950, L503.6550, L101.9900 #### [facility] [address] [place], [address] Mucus Ql (Urine sed) 0 SEEN Normal [facility] Comment on above: Order Comment: Urine , Random Performed By: #### L 509.7001, L501.6710, L503.6030, L100.9950, L503.6550, L101.9900 #### [facility] [address] [place], [address] Urine Drug Screen (VISTA)on 11-06-2024 AMPHETAMINES Negative Normal <1000 ng/mL [facility] Comment on above: Performed By: #### L 509.7001, L501.6710, L503.6030, L100.9950, L503.6550, L101.9900 #### [facility] [address] [place], [address] BARBITIURATES Negative Normal < 200 ng/mL [facility] Comment on above: Performed By: #### L 509.7001, L501.6710, L503.6030, L100.9950, L503.6550, L101.9900 #### [facility] [address] [place], [address] BENZODIAZIPINE Negative Normal < 200 ng/mL [facility] Comment on above: Performed By: #### L 509.7001, L501.6710, L503.6030, L100.9950, L503.6550, L101.9900 #### [facility] [address] [place], [place], [facility] BUP Ur Drug Scr Negative Normal < 200 ng/mL [facility] Comment on above: Performed By: #### L 509.7001, L501.6710, L503.6030, L100.9950, L503.6550, L101.9900 #### [facility] [address] [place], [address] COCAINE Negative Normal < 300 ng/mL [facility] Comment on above: Performed By: #### L 509.7001, L501.6710, L503.6030, L100.9950, L503.6550, L101.9900 #### [facility] [address] [place], [place], [facility] Fentanyl Negative Normal [facility] Comment on above: Performed By: #### L 509.7001, L501.6710, L503.6030, L100.9950, L503.6550, L101.9900 #### [facility] [address] [place], [place], [facility] METHADONE Negative Normal < 300 ng/mL [facility] Comment on above: Performed By: #### L 509.7001, L501.6710, L503.6030, L100.9950, L503.6550, L101.9900 #### [facility] [address] [place], [address] OPIATES Negative Normal < 300 ng/mL [facility] Comment on above: Performed By: #### L 509.7001, L501.6710, L503.6030, L100.9950, L503.6550, L101.9900 #### [facility] [address] [place], [address] OXYCODONE Negative Normal < 100 ng/mL [facility] Comment on above: Performed By: #### L 509.7001, L501.6710, L503.6030, L100.9950, L503.6550, L101.9900 #### [facility] [address] [place], [address] PCP Negative Normal < 25 ng/mL [facility] Comment on above: Performed By: #### L 509.7001, L501.6710, L503.6030, L100.9950, L503.6550, L101.9900 #### [facility] [address] [place], [facility] THC Negative Normal < 50 ng/mL [facility] Comment on above: Performed By: #### L 509.7001, L501.6710, L503.6030, L100.9950, L503.6550, L101.9900 #### [facility] [address] [place], [address] AMPHETAMINES Normal <1000 ng/mL [facility] Comment on above: Result Comment: DUPL ICATE ORDER, CONFIRMED WITH MARK (PCU) Performed By: #### L 509.7001, L501.6710, L503.6030, L100.9950, L503.6550, L101.9900 #### [facility] [address] [place], [address] BARBITIURATES Normal < 200 ng/mL [facility] Comment on above: Result Comment: DUPL ICATE ORDER, CONFIRMED WITH MARK (PCU) Performed By: #### L 509.7001, L501.6710, L503.6030, L100.9950, L503.6550, L101.9900 #### [facility] [address] [place], [place], [id number] ([address]) BENZODIAZIPINE Normal < 200 ng/mL [facility] Comment on above: Result Comment: DUPL ICATE ORDER, CONFIRMED WITH MARK (PCU) Performed By: #### L 509.7001, L501.6710, L503.6030, L100.9950, L503.6550, L101.9900 #### [facility] [address] [place], [address] BUP Ur Drug Scr Normal < 200 ng/mL [facility] Comment on above: Result Comment: DUPL ICATE ORDER, CONFIRMED WITH MARK (PCU) Performed By: #### L 509.7001, L501.6710, L503.6030, L100.9950, L503.6550, L101.9900 #### [facility] [address] [place], [address] COCAINE Normal < 300 ng/mL [facility] Comment on above: Result Comment: DUPL ICATE ORDER, CONFIRMED WITH MARK (PCU) Performed By: #### L 509.7001, L501.6710, L503.6030, L100.9950, L503.6550, L101.9900 #### [facility] [address] [place], [address] Fentanyl Normal [facility] Comment on above: Result Comment: DUPL ICATE ORDER, CONFIRMED WITH MARK (PCU) Performed By: #### L 509.7001, L501.6710, L503.6030, L100.9950, L503.6550, L101.9900 #### [facility] [address] [place], [address] METHADONE Normal < 300 ng/mL [facility] Comment on above: Result Comment: DUPL ICATE ORDER, CONFIRMED WITH MARK (PCU) Performed By: #### L 509.7001, L501.6710, L503.6030, L100.9950, L503.6550, L101.9900 #### [facility] [address] [place], [address] OPIATES Normal < 300 ng/mL [facility] Comment on above: Result Comment: DUPL ICATE ORDER, CONFIRMED WITH MARK (PCU) Performed By: #### L 509.7001, L501.6710, L503.6030, L100.9950, L503.6550, L101.9900 #### [facility] [address] [place], [address] OXYCODONE Normal < 100 ng/mL [facility] Comment on above: Result Comment: DUPL ICATE ORDER, CONFIRMED WITH MARK (PCU) Performed By: #### L 509.7001, L501.6710, L503.6030, L100.9950, L503.6550, L101.9900 #### [facility] [address] [place], [address] PCP Normal < 25 ng/mL [facility] Comment on above: Result Comment: DUPL ICATE ORDER, CONFIRMED WITH MARK (PCU) Performed By: #### L 509.7001, L501.6710, L503.6030, L100.9950, L503.6550, L101.9900 #### [facility] [address] [place], [address] THC Normal < 50 ng/mL [facility] Comment on above: Result Comment: DUPL ICATE ORDER, CONFIRMED WITH MARK (PCU) Performed By: #### L 509.7001, L501.6710, L503.6030, L100.9950, L503.6550, L101.9900 #### [facility] [address] [place], [address] CNOVon 01-15-2024 CNOV Office Visit (UCTR ) ALMA DELIA DOW ([id number]) 1985 F Date Time Provider Department 01/15/24 6:45 PM KENDRICK CABRERA [facility] During your visit today, we recorded the [...] [R05.1] Wheezing [R06.2] Order(s):STREP A MOLECULAR (POC) [[id number]] Order #: [id number]. #:[id number] albuterol HFA (PROVENTIL HFA, VENTOLIN HFA) 90 [...] Medications Dis (more content not included)... Normal [facility] STREP A MOLECULAR (POC)on Procedural Control Valid [facility] Strep A (POCT) Negative Negative [facility] CNOVon 08-21-2023 CNOV Office Visit (UCWSTR ) ALMA DELIA DOW ([id number]) 1985 F Date Time Provider Department 08/21/23 7:00 PM BRYCECLIFTONDEL [facility] During your visit today, we recorded the following information about you: Temperature Pulse Respiration Blood pressure 98.8 degrees 94/minute 16/minute 122/78 Weight 73.3 kg Del Wu APRN.FIGHTING VEHICLE INFANTRYMAN 08/21/2023 7:02 PM Signed Subjective HPI Nontoxic-appearing [...] (FLONASE) 50 mcg/actuation nasal spray Use 1 Peel in each nostril once daily. (Patient not [...] or rale (more content not included)... Normal [facility] CNOVon 04-23-2023 CNOV Office Visit (UCWSTR ) ALMA DELIA DOW ([id number]) 1985 F Date Time Provider Department 04/23/23 2:30 PM MARINA VERONICA [facility] During your visit today, we recorded the following information about you: Temperature Pulse Respiration Blood pressure 98.2 degrees 111/minute 16/minute 128/90 Weight 75.8 kg Marina Veronica APRN.FIGHTING VEHICLE INFANTRYMAN 04/23/2023 2:56 PM Signed This note was created using GLGriter. Subjective Alma Delia Wyman Paloma is a 37 year old female [...] (FLONASE) 50 mcg/actuation nasal spray Use 1 Peel in each nostril once daily. - norelgestromin-ethiny [...] Status:Closed by MARINA VERONICA on 04/23/23 Normal [facility] Cervical or vagninal specime n microscopic examination by cytology stain (reported asOrdered By: Marilyn Hazel on 2022 Cytology report Cyto stain Doc (Cvx/Vag) Comment . [facility] Comment on above: The Pap smear [...] 33,Ordered By: Marilyn Hazel on 2022 HPV 16+18+31+33+35+39+45+5 1+52+56+58+59+66+68 DNA Probe+sig amp Ql (Cvx) Negative Negative [facility] Comment on above: This nucleic acid am plification test detects fourteen high- risk HPV types (16,18,31,33,35,39,45,51,52,56,58,59,66,68)without differentiation. Laboratory - CytologyOrdered By: Marilyn Hazel on 2022 General Practitioner Cyto stain Nom (Cvx/Vag) [ID] Comment . [facility] Comment on above: Nitin Guthrie, Cyto technologist (ASCP) Laboratory - Miscellaneous t estsOrdered By: Marilyn Hazel on 2022 Service comment (Unsp spec) [Interp] Comment . [facility] Comment on above: This liquid based Th inPrep(R) pap test was screened withthe use of an image guided system. Service comment (Unsp spec) [Interp] . . [facility] Liquid-based cerv Pap + CT/G C by JULISSA w reflex to high-risk HPV for ASCUSOrdered By: Marilyn Hazel on 2022 Cytology report Cyto stain.thin prep Doc (Cvx/Vag) Comment . [facility] Comment on above: Criteria not met, HP V Genotype not performed.Performed at: WB - [facility] [address] [place], [place] [id number] Director: Adele Nino MD, Phone: [phone] at: =G - [facility] [address] [place], [place] [id number] Director: Adele Nino MD, Phone: [phone] No Panel InformationOrdered By: Marilyn Hazel on 2022 Pathology report final diagnosis Narrative Comment . [facility] Comment on above: NEGATIVE FOR INTRAEP ITHELIAL LESION OR MALIGNANCY. Laboratory - Chemistry and C hemistry - challengeon 02-04-2022 HCG ( test) Ql (U) Negative [facility] Work Phone: Comment on above: Very dilute urine sp ecimens, as indicated by a low specificgravity, may not contain sales support representative levels of hCG. If is still suspected, a first morning urinespecimen should be collected 48 hours later and tested. No Panel Informationon 01-28 Radiology Study observation (narrative) [facility] XR Ribs - right Views and est PAon 01-28-2021 IMPRESSION: No acute findings. Surveillance Camera Technician: SILAS Transcribe Date/Time: Jan 28 2021 4:50P Dictated by : JUNG ASHLEY MD This examination was interpreted and the report reviewed and electronically signed by: JUNG ASHLEY MD on Jan 28 2021 4:55PM [facility] DIVISION OF RADIOLOGY * * *Final Report* [...] right rib fracture. DIVISION OF RADIOLOGY Provider, [facility] - 01/28/2021 * * *Final Report* * [...] rib fracture. IMPRESSION IMPRESSION: No acute findings. Surveillance Camera Technician: [facility] HOSPITALInboundWriter Transcribe Date/Time: Jan 28 2021 4:50P Dictated by : JUNG ASHLEY MD This examination was interpreted and the report reviewed and electronically signed by: JUNG ASHLEY MD on Jan 28 2021 4:55PM [facility] XR Shoulder - right 3 Viewso n 01-28-2021 IMPRESSION: No acute radiographic abnormalities seen in the right shoulder. Surveillance Camera Technician: PSCInboundWriter Transcribe Date/Time: Jan 28 2021 4:49P Dictated by : PRITESH ROBINS MD This examination was interpreted and the report reviewed and electronically signed by: PRITESH ROBINS MD on Jan 28 2021 4:51PM [facility] DIVISION OF RADIOLOGY * * *Final Report* [...] tissue swelling. DIVISION OF RADIOLOGY Provider, Violetta gambino [place] - 01/28/2021 * * *Final Report* * [...] radiographic abnormalities seen in the right shoulder. Surveillance Camera Technician: SILAS Transcribe Date/Time: Jan 28 2021 4:49P Dictated by : PRITESH ROBINS MD This examination was interpreted and the report reviewed and electronically signed by: PRITESH ROBINS MD on Jan 28 2021 4:51PM [facility] XR Shoulder - right 3 ViewsO rdered By: Ccf Provider on 01-28-2021 [facility] Vital Signs Date Time Vital Sign Value Performing Clinician Facility 01-15-2024 18:47-0400 Body mass index (BMI) [Ratio] 31.65 kg/m2 Kendrick Cabrera MD Work Phone: [facility] 01-15-2024 18:47-0400 Body temperature 98.01 [degF] Kendrick Cabrera MD Work Phone: [facility] 01-15-2024 18:47-0400 Body weight 73.5 kg Kendrick Cabrera MD Work Phone: [facility] 01-15-2024 18:47-0400 Diastolic blood pressure 84 mm[Hg] Kendrick Cabrera MD Work Phone: [facility] 01-15-2024 18:47-0400 Heart rate 101 /min Kendrick Cabrera MD Work Phone: [facility] 01-15-2024 18:47-0400 Respiratory rate 18 /min Kendrick Cabrera MD Work Phone: [facility] 01-15-2024 18:47-0400 SaO2% (BldA) [Mass fraction] 98 % Kendrick Cabrera MD Work Phone: [facility] 01-15-2024 18:47-0400 Systolic blood pressure 138 mm[Hg] Kendrick Cabrera MD Work Phone: [facility] 08-21-2023 18:51-0400 Body temperature 98.8 [degF] Del Francesledestinee SHOE COBBLER.FIGHTING VEHICLE INFANTRYMAN Work Phone: [facility] 08-21-2023 18:51-0400 Body weight 73.3 kg Delorin Wu SHOE COBBLER.FIGHTING VEHICLE INFANTRYMAN Work Phone: [facility] 08-21-2023 18:51-0400 Diastolic blood pressure 78 mm[Hg] Del Pendledestinee SHOE COBBLER.FIGHTING VEHICLE INFANTRYMAN Work Phone: [facility] 08-21-2023 18:51-0400 Heart rate 94 /min Del Bryce SHOE COBBLER.FIGHTING VEHICLE INFANTRYMAN Work Phone: [facility] 08-21-2023 18:51-0400 Respiratory rate 16 /min Del Pendledestinee SHOE COBBLER.FIGHTING VEHICLE INFANTRYMAN Work Phone: [facility] 08-21-2023 18:51-0400 SaO2% (BldA) [Mass fraction] 97 % Del Wu SHOE COBBLER.FIGHTING VEHICLE INFANTRYMAN Work Phone: [facility] 08-21-2023 18:51-0400 Systolic blood pressure 122 mm[Hg] Del Wu SHOE COBBLER.FIGHTING VEHICLE INFANTRYMAN Work Phone: [facility] 06-08-2023 12:59-0500 Body height 152.4 cm No Primary Care Physician [facility] 06-08-2023 12:59-0500 Body mass index (BMI) [Ratio] 32.8 kg/m2 No Primary Care Physician [facility] 06-08-2023 12:59-0500 Body temperature 98.3 [degF] No Primary Care Physician [facility] 06-08-2023 12:59-0500 Body weight 76.31 kg No Primary Care Physician [facility] 06-08-2023 12:59-0500 Diastolic blood pressure 74 mm[Hg] No Primary Care Physician [facility] 06-08-2023 12:59-0500 Heart rate 110 /min No Primary Care Physician [facility] 06-08-2023 12:59-0500 Respiratory rate 16 /min No Primary Care Physician [facility] 06-08-2023 12:59-0500 SaO2% (BldA) [Mass fraction] 98 % No Primary Care Physician [facility] 06-08-2023 12:59-0500 Systolic blood pressure 110 mm[Hg] No Primary Care Physician [facility] 04-23-2023 14:42-0500 Body temperature 98.2 [degF] Marina Veronica APRN.FIGHTING VEHICLE INFANTRYMAN Work Phone: [facility] 04-23-2023 14:42-0500 Body weight 75.75 kg Marina Veronica APRN.FIGHTING VEHICLE INFANTRYMAN Work Phone: [facility] 04-23-2023 14:42-0500 Diastolic blood pressure 90 mm[Hg] Marina Veronica APRN.FIGHTING VEHICLE INFANTRYMAN Work Phone: [facility] 04-23-2023 14:42-0500 Heart rate 111 /min Marina Veronica APRN.FIGHTING VEHICLE INFANTRYMAN Work Phone: [facility] 04-23-2023 14:42-0500 Respiratory rate 16 /min Marina Veronica APRN.FIGHTING VEHICLE INFANTRYMAN Work Phone: [facility] 04-23-2023 14:42-0500 SaO2% (BldA) [Mass fraction] 98 % Marina Veronica APRN.FIGHTING VEHICLE INFANTRYMAN Work Phone: [facility] 04-23-2023 14:42-0500 Systolic blood pressure 128 mm[Hg] Marina Veronica APRN.FIGHTING VEHICLE INFANTRYMAN Work Phone: [facility] 02-04-2022 15:41-0400 Body temperature 97.9 [degF] [facility] Work Phone: 02-04-2022 15:41-0400 Diastolic blood pressure 76 mm[Hg] [facility] Work Phone: 02-04-2022 15:41-0400 Heart rate 93 /min [facility] Work Phone: 02-04-2022 15:41-0400 Respiratory rate 16 /min [facility] Work Phone: 02-04-2022 15:41-0400 SaO2% (BldA) [Mass fraction] 92 % [facility] Work Phone: 02-04-2022 15:41-0400 Systolic blood pressure 109 mm[Hg] [facility] Work Phone: 02-04-2022 11:29-0400 Body height 152.4 cm [facility] Work Phone: 02-04-2022 11:29-0400 Body mass index (BMI) [Ratio] 33.6 kg/m2 [facility] Work Phone: 02-04-2022 11:29-0400 Body weight 78.1 kg [facility] Work Phone: 01-29-2022 23:17-0400 Respiratory rate 18 /min [facility] Work Phone: 01-29-2022 21:11-0400 Body mass index (BMI) [Ratio] 32.2 kg/m2 [facility] Work Phone: 01-29-2022 21:11-0400 Body temperature 98.9 [degF] [facility] Work Phone: 01-29-2022 21:11-0400 Body weight 74.84 kg [facility] Work Phone: 01-29-2022 21:11-0400 Diastolic blood pressure 96 mm[Hg] [facility] Work Phone: 01-29-2022 21:11-0400 Heart rate 141 /min [facility] Work Phone: 01-29-2022 21:11-0400 SaO2% (BldA) [Mass fraction] 99 % [facility] Work Phone: 01-29-2022 21:11-0400 Systolic blood pressure 136 mm[Hg] [facility] Work Phone: Encounters Encounter Date Encounter Type Care Provider Facility Start: 11-06-2024 ambulatory No Primary Car e Physician Facility:[facility] Start: 11-06-2024 Evaluation and management of inpatient No Primary Care Physician Facility:[facility] Start: 01-15-2024 End: 01-15-2024 ambulatory Facility:[facility] Start: 01-15-2024 End: 01-15-2024 Patient encounter procedure Kendrick Cabrera MD Work Phone: [facility] Comment on above: Sore throat (Primary Dx); Acute cough; Wheezing Start: 08-21-2023 End: 08-21-2023 ambulatory Facility:[facility] Start: 08-21-2023 End: 08-21-2023 Office outpatient visit 15 minutes Del Wu APRN.CNP Work Phone: [facility] Comment on above: Eustachian tube dysf unction, bilateral (Primary Dx) Start: 06-13-2023 Patient encounter procedure No Primary Care Physician [facility] Work Phone: Start: 06-08-2023 End: 06-08-2023 ambulatory No Primary Care Physician [facility] Work Phone: Start: 06-08-2023 End: 06-08-2023 Patient encounter procedure No Primary Care Physician [facility] Work Phone: Start: 06-08-2023 End: 06-08-2023 Patient encounter procedure No Primary Care Physician [facility] Work Phone: Start: 06-08-2023 End: 06-08-2023 ambulatory No Primary Care Physician [facility] Work Phone: Start: 06-08-2023 End: 06-08-2023 Patient encounter procedure No Primary Care Physician [facility] Work Phone: Start: 04-23-2023 End: 04-23-2023 ambulatory Facility:[facility] Start: 04-23-2023 End: 04-23-2023 Patient encounter procedure Marina Veronica APRN.FIGHTING VEHICLE INFANTRYMAN Work Phone: [facility] Comment on above: Acute otitis media, right (Primary Dx) Start: 2022 End: 2022 ambulatory [facility] Work Phone: Start: 2022 End: 2022 Patient encounter procedure [facility] [place] [facility] Start: 02-04-2022 End: 02-04-2022 Admission to same day surgery center [facility] Start: 02-04-2022 End: 02-04-2022 ambulatory [facility] Work Phone: Start: 01-29-2022 End: 01-29-2022 Emergency department patient visit [facility] Start: 01-28-2021 End: 01-28-2021 Subsequent hospital visit by physician Xr [facility] Work Phone: Radiology Comment on above: Acute pain of right shoulder [M25.511] Procedures Date Procedure Procedure Detail Performing Clinician Start: 01-15-2024 STREP A MOLECULAR (POC) Samantha Guzmán APRN.FIGHTING VEHICLE INFANTRYMAN Work Phone: Start: 06-08-2023 CT of upper limb wit hout contrast No Primary Care Physician Start: 06-08-2023 Plain x-ray of wrist No Primary Care Physician Start: 02-04-2022 Fluoroscopic guidance Start: 02-04-2022 Open reduction of fr acture with internal fixation Start: 01-29-2022 X-ray of radius and ulna Start: 01-28-2021 Radex ribs uni w/posteroant ch minimum 3 views Nalini Allen APRN.FIGHTING VEHICLE INFANTRYMAN Work Phone: Plan of Treatment Date Care Activity Detail Author Start: 11-05-2026 Urine microalbumin profile DTaP,Tdap,Td Vaccine (2 - Td or Tdap) [facility] Start: 02-04-2024 Covid-19 Vaccine ( season) Covid-19 Vaccine () [facility] Start: 02-04-2024 Influenza vaccination Influenza Vaccine (#1) [facility] Start: 06-08-2023 Radex wrist complete minimum 3 views X-RAY EXAM OF WRIST [facility] Start: 06-05-2023 Depression Assessment Depression Assessment [facility] Start: 02-03-2023 Covid-19 Vaccine ( season) Covid-19 Vaccine ( season) [facility] Start: 02-03-2023 Influenza vaccination Influenza Vaccine (#1) [facility] Start: 06-05-2022 Depression Assessment Depression Assessment [facility] Start: 02-04-2022 Application of ice collar, cap or bag [facility] Work Phone: Start: 02-04-2022 Catheterization of vein [facility] Work Phone: Start: 02-04-2022 Elevation of affected extremity [facility] Work Phone: Start: 02-04-2022 Following clinical pathway protocol [facility] Work Phone: Start: 02-04-2022 Patient discharge [facility] Work Phone: Start: 02-04-2022 Procedure discontinued [facility] Work Phone: Start: 02-04-2022 Taking patient vital signs [facility] Work Phone: Start: 02-04-2022 Vital signs measurements [facility] Work Phone: Start: 02-04-2022 [facility] Work Phone: Start: 02-04-2022 Plain x-ray of wrist Wrist 2 Views [facility] Work Phone: Start: 02-04-2022 XR Wrist 2 Views [facility] Work Phone: Start: 02-04-2022 Medication education [facility] Work Phone: Start: 01-29-2022 Application short arm splint dynamic APPLY FOREARM SPLINT [facility] Work Phone: Start: 12-10-2018 Pap Testing Pap Testing [facility] Start: 12-10-2018 Screening for malignant neoplasm of cervix Pap Testing [facility] Start: 12-10-2016 Screening for malignant neoplasm of cervix Cervical Cancer Screening [facility] Start: 11-18-2015 HPV Testing HPV Testing [facility] Start: 11-18-2015 Screening for malignant neoplasm of cervix HPV Testing [facility] Start: 2004 Hepatitis B Vaccine (1 of 3 - 19+ 3-dose series) Hepatitis B Vaccine (1 of 3 - 19+ 3-dose series) [facility] Start: 11-18-2003 Anxiety Screening Anxiety Screening [facility] Start: 11-18-2003 Depression Screening Depression Screening [facility] Start: 11-18-2003 Hepatitis C Screening Hepatitis C Screening [facility] Start: 11-18-2003 Hepatitis C screening Hepatitis C Screening [facility] Start: 11-18-2003 HIV Screening HIV Screening [facility] Start: 11-18-2003 HIV screening HIV Screening [facility] Start: 11-18-1991 Pneumococcal vaccination [facility] Start: 05-19-1986 Covid-19 Vaccine (#1) Covid-19 Vaccine (#1) [facility] Start: 1985 Hepatitis B Vaccine (1 of 3 - 3-dose series) Hepatitis B Vaccine (1 of 3 - 3-dose series) [facility] Patient Education ED Fracture, U pper Extremity [facility] Work Phone: Patient referral [facility] Work Phone: Immunizations Immunization Date Immunization Notes Care Provider Suzie boo 11-05-2016 tetanus toxoid, redu blake diphtheria toxoid, and acellular pertussis vaccine, adsorbed [facility] 03-02-2009 influenza virus vaccine, unspecified formulation Marina Veronica APRN.FIGHTING VEHICLE INFANTRYMAN Work Phone: [facility] Payers Date Payer Category Payer Self-pay [id number] 2022 Medicaid [id number] 2022 Unknown [id number] 2011 Medicaid [id number] Unknown [id number] Unknown [id number] Unknown [id number] Unknown [id number] Social History Date Type Detail Facility Start: 02-03-2022 End: 06-13-2023 Tobacco smoking status [facility] Unknown if ever smoked [facility] Start: 02-04-2019 Rare [facility] Start: 02-04-2019 None [facility] Start: 02-04-2019 With Family [facility] Start: 12-31-2018 Cigarettes [facility] Start: 1985 Sex Assigned At Female W [facility] Start: 06-25-2003 End: 01-17-2022 Tobacco smoking status MEIS Smokes tobacco daily [facility] Start: 06-25-2003 History of tobacco use Cigarette Smoker [facility] Start: 05-11-2020 End: 01-17-2022 Cigarettes smoked current (pack per day) - Reported 0.5 [facility] Start: 03-25-2014 End: 01-17-2022 Tobacco use and exposure Smokeless tobacco non-user [facility] Start: 01-28-2021 End: 04-23-2023 Alcohol intake Current drinker of alcohol (finding) [facility] Start: 05-11-2020 End: 04-23-2023 Tobacco use panel [facility] National Score (1-100), lower number is lower risk Not on file [facility] Start: 03-25-2014 Alcohol Comment rare Eleanor kilgore [facility] Start: 1985 [facility]igned At [facility] Start: 12-29-2020 End: 01-28-2021 Exposure to SARS-CoV-2 (event) Yes [facility] NEGATED: Highlighted row [facility] Work Phone: Medical Equipment Procedure Code Equipment Code Equipment Origin al Text Equipment Identifier Dates ORIF, fracture, wrist 3.5 mm cortex screws, self-tapping FDA Start: 02-04-2022 ORIF, fracture, wrist ([id number]) Orthopaedic bone screw, non-bioabsorbable, non-sterile ()[id number] FDA Start: 02-04-2022 ORIF, fracture, wrist ([id number]) Orthopaedic fixation plate, non-bioabsorbable, sterile ()[id number] FDA Start: 02-04-2022 ORIF, fracture, wrist 3.5 [...] Assessment Result Facility 02-04-2022 Cognitive function Voice/Name [facility] Work Phone: Clinical Notes 01-28-2021 to 01-15-2024 Kendrick Cabrera MD - 01/15/2024 6:51 PM Del Saucedo APRN.FIGHTING VEHICLE INFANTRYMAN - 08/21/2023 6:59 PM Marina Vazquez APRN.FIGHTING VEHICLE INFANTRYMAN - 04/23/2023 2:50 PM EST Note Date & Type Note Facility 01-15-2024 Note HNO ID: [id number] Author: KENDRICK CABRERA MD Service: ? Author [...] BENZONATATE 100 MG CAPSULE Kendrick Cabrera MD [facility] 01-15-2024 History of Present illness Narrative [...] Kendrick Cabrera MD documented in this encounter [facility] 08-21-2023 Note HNO ID: [id number] Author: DEL WU APRN.FIGHTING VEHICLE INFANTRYMAN Service: ? Author Type: Nurse Practitioner Type: [...] Breath. (Patient not taking: Reported on 04/23/2023) Adthmkbpfputdoq-Dtruwztvm-ZH (BROMFED DM) 2-30-10 mg/5 mL syrup Take 5-10 ml po q6h prn (Patient not taking: Reported on 03/17/2021) pseudoephedrine (SUDAFED) 30 mg tablet Take 1 tablet by mouth every 4 hours as needed. (Patient not taking: Reported on 03/17/2021) fluticasone (FLONASE) 50 mcg/actuation nasal spray Use 1 Peel in each nostril once daily. (Patient not [...] No pain with (more content not included)... [facility] 08-21-2023 History of Present illness Narrative [...] Breath. (Patient not taking: Reported on 04/23/2023) Diejogvepxcmxay-Zyymkeaot-YH (BROMFED DM) 2-30-10 mg/5 mL syrup Take 5-10 ml po q6h prn (Patient not taking: Reported on 03/17/2021) pseudoephedrine (SUDAFED) 30 mg tablet Take 1 tablet by mouth every 4 hours as needed. (Patient not taking: Reported on 03/17/2021) fluticasone (FLONASE) 50 mcg/actuation nasal spray Use 1 Peel in each nostril once daily. (Patient not [...] of care. This note was generated using [employer] software. It may contain errors in wording, punctuation, or spelling. Del Wu APRN.ELO documented in this encounter [facility] 04-23-2023 Note HNO ID: [id number] Author: Marina Veronica APRN.LEO Service: ? Author Type: Nurse Practitioner Type: Progress Notes Filed: 04/23/2023 2:56 PM Note Text: This note was created using [employer]. Subjective Alma Delia Dow is a 37 [...] Relevant Medications cefdinir (OMNICEF) 300 mg capsule [facility] 04-23-2023 History of Present illness Narrative This note was created using [employer]. Subjective Alma Delia Dow is a 37 [...] 300 mg capsule documented in this encounter [facility] 2022 Note [facility] Pap Smear Specimen Adequacy 2022 11:30am [...] 2021 4:28 PM documented in this encounter [facility] Evaluation note No assessment inform ation available [facility] Work Phone: Evaluation note Diagnosis Acute otitis media, right- Primary Unspecified otitis media [facility] Diagnosis Onset Date Resolution Status Fracture of distal end of left ulna acute Strain of left wrist acute Fracture of distal end of left ulna acute [facility] Work Phone: Evaluation note* Diagnosis Eustachian tube dysfunction, bilateral- Primary [facility] Diagnosis Sore throat- Primary Acute pharyngitis Acute cough Wheezing [facility] Acute pain of right shoulder Contusion of chest wall, unspecified laterality, initial encounter documented in this encounter [facility] Discharge instructions Additional Instructions Follow preprinted instructions from your surgeons office Implant Used?: Yes [facility] Work Phone: Reason for referral (narrative)* Diagnostic Procedure Only (Urgent) - Closed Specialty Diagnoses / Procedures Referred By Ricardo t Referred To Contact XR IMAGING Diagnoses Acute pain of right shoulder Contusion of chest wall, unspecified laterality, initial encounter Procedures XR RIBS/CHEST 3V AP RIB/OBLS/CXR RT X-RAY RIBS, CHEST 3+ VW Nalini Allen APRN.FIGHTING VEHICLE INFANTRYMAN [address] [place] [address] [place] [address] Referral ID Status Reason Start Date Expiration Date V isits Requested Visits Authorized Closed Auto-Generate d Referral 01/28/2021 02/27/2022 1 1 * Diagnostic Procedure Only (Urgent) - Closed Specialty Diagnoses / Procedures Referred By Ricardo t Referred To Contact XR IMAGING Diagnoses Acute pain of right shoulder Contusion of chest wall, unspecified laterality, initial encounter Procedures XR SHOULDER GENERAL 3V OR MORE AP/TRUE AP/OTHER RT X-RAY SHOULDER COMPLET MIN 2 VIEWS Nalini Allen APRN.FIGHTING VEHICLE INFANTRYMAN [address] [phone] [place] [address] Referral ID Status Reason Start Date Expiration Date V isits Requested Visits Authorized Closed Auto-Generate d Referral 01/28/2021 02/27/2022 1 1 [facility] for visit Narrative* Diagnostic Procedure Only (Urgent) - Closed Specialty Diagnoses / Procedures Referred By Contac t Referred To Contact XR IMAGING Diagnoses Acute pain of right shoulder Contusion of chest wall, unspecified laterality, initial encounter Procedures XR RIBS/CHEST 3V AP RIB/OBLS/CXR RT X-RAY RIBS, CHEST 3+ VW Nalini Allen APRN.FIGHTING VEHICLE INFANTRYMAN [address] [phone] [place] [address] Referral ID Status Reason Start Date Expiration Date V isits Requested Visits Authorized [id number] Closed Auto-Generate d Referral 01/28/2021 02/27/2022 1 1 [facility] Chief Complaint and Reason for Visit Chief Complaint LEFT ARM PAIN R/T IN JURY LT ORIF RADIUS ULNA Chief Complaint LEFT WRIST INJURY left wrist pain LEFT WRIST LT WRIST - EVAL FRACTURE PATTERN LEFT WRIST Reason for Visit Fracture of distal e nd of left ulna Strain of left wrist Fracture of distal end of left ulna Family History No Family History Records Found Relationship Condition Age at Onset Recorded Date/T citlali mother Malignant neoplasm Unknown aunt Disorder of thyroid Unknown grandfather Cerebrovascular accident (CVA) Unknown Parkinson's disease Unknown Advance Directives No Advanced Directives Records Found Advance Directive Response Recorded Date/ Time Living Will No February 03 11:56am Power of [employer] Printing Machinist No February 03, 2022 11:56am Advance Directive Response Recorded Date/ Time Living Will No February 03 10:56am Power of [employer] Printing Machinist No February 03, 2022 10:56am Summary Purpose [...] Primary Care Provider, Refer ring Provider Active LILLI Prieto Attending Provider Active Team Status: Active Member [...] MD Attending Provider, Referring Prov ider Active [employer]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 Printing Relationship Specialty Start Date End Date Kyung Potts MD [address] [place] [address] PCP - General Internal Medicine 09/26/18 01/16/22 [...] or prosecute any alcohol or drug abuse patient.[facility] the event this information is protected by the Federal Confidentiality of Alcohol and Drug Abuse Patient Records regulations: The Federal rules restrict any use of the information to criminally investigate or prosecute any alcohol or drug abuse patient.[facility] the event this information is protected by the Federal Confidentiality of Alcohol and Drug Abuse Patient Records regulations: The Federal rules restrict any use of the information to criminally investigate or prosecute any alcohol or drug abuse patient.[facility] the event this information is protected by the Federal Confidentiality of Alcohol and Drug Abuse Patient Records regulations: The Federal rules restrict any use of the information to criminally investigate or prosecute any alcohol or drug abuse patient.[facility] Reason for Visit (unrecogniz ed section and content) Reason Comments Ear Pain Right ear x4 days Reason Comments Ear Pain Bilateral ear pain x 4 days Reason Comments Sore Throat ST x 1 week INFORMATION SOURCE (unrecogn ized section and content) DATE CREATED AUTHOR 01/17/2024 [facility] DATE CREATED AUTHOR AUTHOR'S FLOYD ATION 11/07/2024 [facility] FOR RECORDS PERTAINING TO PATIENTS WHO ARE [...] BE BASED ON THE PRIMARY CLINICAL RECORDS. [employer] [facility]. provides no warranty or guarantee of the accuracy or completeness of information in this document.
--- OUTSIDE RECORDS SUMMARY | 2024-11-07 21:08 | XMS RPT_ITS | CCD ---
Author Organization [facility] Care Team Providers Care Supervisor [employer] Name Role Phone Unavailable Primary Care Provider [...] [SULFAMETHOXAZOLE] Drug Allergy 201 9 Other: See [facility] (9 sources) Trimethoprim; Translations: [TRIMETHOPRIM] Drug Allergy 9 Other: See Comments [facility] (1 source) Sulfamethoxazole Drug Allergy 5 [facility] (1 source) Trimethoprim Drug Allergy 5 [facility] Medications Current Medications Medication Drug Class(es) [...] Active Comment on above: Take by mouth. [id number] 200 actuat albuterol 0.09 mg/actuat metered dose [...] Comment on above: Take 1 capsule by [facility] two times a day for 7 days. 168 hr ethinyl estradiol 0.50683 mg/hr / norelgestromin 0.37189 mg/hr transdermal system (4 sources) Progestin, Estrogen [...] OREN (middle ear effusion), left Use 1 [place] in each nostril once daily. 16 g 2 08/06/2016 01/15/2024 Discontinued Comment on above: Use 1 [place] in each nostril once daily. Use 2 [...] oral solution (4 sources) alpha-Adrenergic Agonist, Uncompetitive Z-mkxvfz-M-aspartate Receptor Antagonist, Sigma-1 Agonist Start: 05-02-2018 End: [...] Reference Range Facil ity Blood Gases by [facility] 025 NEGIN TEST Positive Normal [facility] Comment on above: Performed By: #### L 509.7001, L501.6710, L503.6030, L100.9950, L503.6550, L101.9900 #### [facility] [address] [place], [address] Base excess Calc (Bld) [Moles/Vol] 0 mmol/L Normal -2 to +2 [facility] Comment on above: Performed By: #### L 509.7001, L501.6710, L503.6030, L100.9950, L503.6550, L101.9900 #### [facility] [address] [place], [address] Blood Gas Type ART [facility] Comment on above: Performed By: #### L 509.7001, L501.6710, L503.6030, L100.9950, L503.6550, L101.9900 #### [facility] [address] [place], [address] CO2 [Moles/Vol] 24 mmol/L Normal [facility] Comment on above: Performed By: #### L 509.7001, L501.6710, L503.6030, L100.9950, L503.6550, L101.9900 #### [facility] [address] [place], [address] FI02 6.0 [facility] Comment on above: Performed By: #### L 509.7001, L501.6710, L503.6030, L100.9950, L503.6550, L101.9900 #### [facility] [address] [place], [address] HCO3 (Bld) [Moles/Vol] 22.7 mmol/L Normal 22-26 [facility] Comment on above: Performed By: #### L 509.7001, L501.6710, L503.6030, L100.9950, L503.6550, L101.9900 #### [facility] [address] [place], [address] Mode Not entered [facility] Comment on above: Performed By: #### L 509.7001, L501.6710, L503.6030, L100.9950, L503.6550, L101.9900 #### [facility] [address] [place], [address] O2 Delivery Dev Cannula Normal [facility] Comment on above: Performed By: #### L 509.7001, L501.6710, L503.6030, L100.9950, L503.6550, L101.9900 #### [facility] [address] [place], [address] pCO2 28.6 mmHg Low 35-45 [facility] Comment on above: Performed By: #### L 509.7001, L501.6710, L503.6030, L100.9950, L503.6550, L101.9900 #### [facility] [address] [place], [address] pH (Bld) 7.51 [pH] High 7.35-7.45 [facility] Comment on above: Performed By: #### L 509.7001, L501.6710, L503.6030, L100.9950, L503.6550, L101.9900 #### [facility] [address] [place], [address] PO2 69 mmHG Low 75-100 [facility] Comment on above: Performed By: #### L 509.7001, L501.6710, L503.6030, L100.9950, L503.6550, L101.9900 #### [facility] [address] [place], [address] SITE L Radial Normal [facility] Comment on above: Performed By: #### L 509.7001, L501.6710, L503.6030, L100.9950, L503.6550, L101.9900 #### [facility] [address] [place], [address] SO2 96 Normal 95-99 [facility] Comment on above: Performed By: #### L 509.7001, L501.6710, L503.6030, L100.9950, L503.6550, L101.9900 #### [facility] [address] [place], [address] CBC W/Diff, Automatedon 06-0 5-2025 Absolute Lymph 0.20 X10 3/uL Low 0.83-4.51 [facility] Comment on above: Performed By: #### L 509.7001, L501.6710, L503.6030, L100.9950, L503.6550, L101.9900 #### [facility] [address] [place], [address] Absolute Neut 4.8 X10 3/uL Normal 2.0-7.7 [facility] Comment on above: Performed By: #### L 509.7001, L501.6710, L503.6030, L100.9950, L503.6550, L101.9900 #### [facility] [address] [place], [address] Basophils/100 WBC (Bld) 0.2 % Normal 0-1 [facility] Comment on above: Performed By: #### L 509.7001, L501.6710, L503.6030, L100.9950, L503.6550, L101.9900 #### [facility] [address] [place], [address] Eosinophils/100 WBC (Bld) 0.2 % Normal 0-5 [facility] Comment on above: Performed By: #### L 509.7001, L501.6710, L503.6030, L100.9950, L503.6550, L101.9900 #### [facility] [address] [place], [address] Erythrocyte distribution width (RBC) [Ratio] 15.7 % High 11.6-14.6 [facility] Comment on above: Performed By: #### L 509.7001, L501.6710, L503.6030, L100.9950, L503.6550, L101.9900 #### [facility] [address] [place], [address] Hematocrit (Bld) [Volume fraction] 26.8 % Low 37-47 [facility] Comment on above: Performed By: #### L 509.7001, L501.6710, L503.6030, L100.9950, L503.6550, L101.9900 #### [facility] [address] [place], [address] Hemoglobin (Bld) [Mass/Vol] 8.9 g/dL Low 12.0-15.0 [facility] Comment on above: Performed By: #### L 509.7001, L501.6710, L503.6030, L100.9950, L503.6550, L101.9900 #### [facility] [address] [place], [address] IG% 0.400 Normal 0.0-0.9 [facility] Comment on above: Result Comment: IG% - Immature Granulocytes (promyelocytes, myelocytes and metamyelocytes) > 1% indicates that a LEFT SHIFT is Present. Performed By: #### L 509.7001, L501.6710, L503.6030, L100.9950, L503.6550, L101.9900 #### [facility] [address] [place], [address] Lymphocytes/100 WBC (Bld) 3.9 % Low 19-41 [facility] Comment on above: Performed By: #### L 509.7001, L501.6710, L503.6030, L100.9950, L503.6550, L101.9900 #### [facility] [address] [place], [address] MCH (RBC) [Entitic mass] 30.1 pg Normal 27.0-32.0 [facility] Comment on above: Performed By: #### L 509.7001, L501.6710, L503.6030, L100.9950, L503.6550, L101.9900 #### [facility] [address] [place], [address] MCHC (RBC) [Mass/Vol] 33.2 g/dL Normal 32-36 [facility] Comment on above: Performed By: #### L 509.7001, L501.6710, L503.6030, L100.9950, L503.6550, L101.9900 #### [facility] [address] [place], [address] MCV (RBC) [Entitic vol] 90.5 fL Normal 81-99 [facility] Comment on above: Performed By: #### L 509.7001, L501.6710, L503.6030, L100.9950, L503.6550, L101.9900 #### [facility] [address] [place], [address] Monocytes/100 WBC (Bld) 1.6 % Normal 0-10 [facility] Comment on above: Performed By: #### L 509.7001, L501.6710, L503.6030, L100.9950, L503.6550, L101.9900 #### [facility] [address] [place], [address] Neutrophils/100 WBC (Bld) 93.7 % High 47-70 [facility] Comment on above: Performed By: #### L 509.7001, L501.6710, L503.6030, L100.9950, L503.6550, L101.9900 #### [facility] [address] [place], [address] Nucleated RBC (Bld) [#/Vol] 0 10*3/uL Normal 0-5 [facility] Comment on above: Performed By: #### L 509.7001, L501.6710, L503.6030, L100.9950, L503.6550, L101.9900 #### [facility] [address] [place], [address] Platelet mean volume (Bld) [Entitic vol] 11.1 fL Normal 6.2-12.0 [facility] Comment on above: Performed By: #### L 509.7001, L501.6710, L503.6030, L100.9950, L503.6550, L101.9900 #### [facility] [address] [place], [address] Platelets (Bld) [#/Vol] 127 10*3/uL Low 150-450 [facility] Comment on above: Performed By: #### L 509.7001, L501.6710, L503.6030, L100.9950, L503.6550, L101.9900 #### [facility] [address] [place], [address] RBC (Bld) [#/Vol] 2.96 10*6/uL Low 4.2-5.4 [facility] Comment on above: Performed By: #### L 509.7001, L501.6710, L503.6030, L100.9950, L503.6550, L101.9900 #### [facility] [address] [place], [address] RDW SD 52.1 fl High 35.1-43.9 [facility] Comment on above: Performed By: #### L 509.7001, L501.6710, L503.6030, L100.9950, L503.6550, L101.9900 #### [facility] [address] [place], [address] WBC (Bld) [#/Vol] 5.1 10*3/uL Normal 4.4-11.0 [facility] Comment on above: Performed By: #### L 509.7001, L501.6710, L503.6030, L100.9950, L503.6550, L101.9900 #### [facility] [address] [place], [address] Comprehensive Metabolic Prof alon 11-07-2024 Albumin [Mass/Vol] 3.0 g/dL Low 3.5-5.0 [facility] Comment on above: Performed By: #### L 509.7001, L501.6710, L503.6030, L100.9950, L503.6550, L101.9900 #### [facility] [address] [place], [address] Albumin/Globulin [Mass ratio] 1.0 {ratio} Normal 0.9-2.4 [facility] Comment on above: Performed By: #### L 509.7001, L501.6710, L503.6030, L100.9950, L503.6550, L101.9900 #### [facility] [address] [place], [address] ALK PHOS 463 U/L High 35-104 [facility] Comment on above: Performed By: #### L 509.7001, L501.6710, L503.6030, L100.9950, L503.6550, L101.9900 #### [facility] [address] [place], [address] ALT [Catalytic activity/Vol] 39 U/L High <=34 [facility] Comment on above: Performed By: #### L 509.7001, L501.6710, L503.6030, L100.9950, L503.6550, L101.9900 #### [facility] [address] [place], [address] AST [Catalytic activity/Vol] 89 U/L High <=31 [facility] Comment on above: Performed By: #### L 509.7001, L501.6710, L503.6030, L100.9950, L503.6550, L101.9900 #### [facility] [address] [place], [address] Bilirubin [Mass/Vol] 0.48 mg/dL Normal 0.00-1.30 [facility] Comment on above: Performed By: #### L 509.7001, L501.6710, L503.6030, L100.9950, L503.6550, L101.9900 #### [facility] [address] [place], [address] BUN/CRE 13.5 RATIO Normal 10-20 [facility] Comment on above: Performed By: #### L 509.7001, L501.6710, L503.6030, L100.9950, L503.6550, L101.9900 #### [facility] [address] [place], [address] Calcium [Mass/Vol] 8.4 mg/dL Normal 7.6-11.0 [facility] Comment on above: Performed By: #### L 509.7001, L501.6710, L503.6030, L100.9950, L503.6550, L101.9900 #### [facility] [address] [place], [address] Chloride [Moles/Vol] 107 mmol/L Normal 98-108 [facility] Comment on above: Performed By: #### L 509.7001, L501.6710, L503.6030, L100.9950, L503.6550, L101.9900 #### [facility] [address] [place], [address] CO2 [Moles/Vol] 18.8 mmol/L Low 21.0-32.0 [facility] Comment on above: Performed By: #### L 509.7001, L501.6710, L503.6030, L100.9950, L503.6550, L101.9900 #### [facility] [address] [place], [address] Creatinine [Mass/Vol] 0.79 mg/dL Normal 0.70-1.20 [facility] Comment on above: Performed By: #### L 509.7001, L501.6710, L503.6030, L100.9950, L503.6550, L101.9900 #### [facility] [address] [place], [address] ECRCL 75.63 ml/min Normal 50-250 [facility] Comment on above: Performed By: #### L 509.7001, L501.6710, L503.6030, L100.9950, L503.6550, L101.9900 #### [facility] [address] [place], [address] GAP 12 Normal 5-15 [facility] Comment on above: Performed By: #### L 509.7001, L501.6710, L503.6030, L100.9950, L503.6550, L101.9900 #### [facility] [address] [place], [address] GFR/1.73 sq M.predicted among non-blacks MDRD (S/P/Bld) [Vol rate/Area] 99 mL/min/{1.73_m2} Normal >60 [facility] Comment on above: Result Comment: mL/m in/1.73m2 CKD-EPI Creatinine Equation (2020) Performed By: #### L 509.7001, L501.6710, L503.6030, L100.9950, L503.6550, L101.9900 #### [facility] [address] [place], [address] Globulin (S) [Mass/Vol] 3.0 g/dL Normal 2.2-4.2 [facility] Comment on above: Performed By: #### L 509.7001, L501.6710, L503.6030, L100.9950, L503.6550, L101.9900 #### [facility] [address] [place], [address] Glucose [Mass/Vol] 182 mg/dL High 70-99 [facility] Comment on above: Performed By: #### L 509.7001, L501.6710, L503.6030, L100.9950, L503.6550, L101.9900 #### [facility] [address] [place], [address] Potassium [Moles/Vol] 3.8 mmol/L Normal 3.3-5.1 [facility] Comment on above: Performed By: #### L 509.7001, L501.6710, L503.6030, L100.9950, L503.6550, L101.9900 #### [facility] [address] [place], [address] Sodium [Moles/Vol] 139 mmol/L Normal 133-145 [facility] Comment on above: Performed By: #### L 509.7001, L501.6710, L503.6030, L100.9950, L503.6550, L101.9900 #### [facility] [address] [place], [address] T PROT 6.0 g/dL Normal 5.9-8.4 [facility] Comment on above: Performed By: #### L 509.7001, L501.6710, L503.6030, L100.9950, L503.6550, L101.9900 #### [facility] [address] [place], [address] Urea nitrogen [Mass/Vol] 11 mg/dL Normal 4-19 [facility] Comment on above: Performed By: #### L 509.7001, L501.6710, L503.6030, L100.9950, L503.6550, L101.9900 #### [facility] [address] [place], [address] Consultation - Infectious Dx on 11-07-2024 Consultation - Infectious Dx [facility] Medical Records Department [address] [place] [address] Consultation - Infectious Dx 11/07/24 1105 MR#: [id number] Acct: [id number] Name: ALMA DELIA DOW Rep #: [id number] : 1985 38 From: Chidi Arellano MD PCP: Care Physician,No Primary Status:ADM CAROLEE Location: [place] [address] Assessment Plan Assessment/Plan (1) Bilateral interstitial pneumonia: [...] other animals. Only travel recently was to [place] in August. [facility] Medical History Anemia Migraine headache Gastric reflux [...] 90.1 H, Lymph % (Auto) 4.9 L, [place] % (Auto) 3.4, Eos % (Auto) 1.0, Baso % (Auto) 0.2, Absolute Neuts (auto) 4.6, Absolute Lymphs (auto) 0.25 L, Nucleated RBC % 0, Sodium 135, Potassium 2.8 L, Chloride 100, Carbon Dioxide 21.8, Anion Gap 13, BUN 13, Creatinine 0 (more content not included)... Normal [facility] Hepatitis B Surface Antibody on 11-07-2024 HEP B Surf Ab Non-Reactive Normal [facility] Comment on above: Result Comment: <8.5 mIU/mL: Non-Reactive 8.5<= x <11.5 mIU/mL: Indeterminate >=11.5 mIU/mL: Reactive Non Reactive: Inconsistent with immunity less than <10 mIU/mL Reactive: Consistent with immunity greater than or equal to 10 mIU/mL Performed By: #### L 509.5391, L501.6710, L503.6030, L100.9950, L503.6550, L101.9900 #### [facility] [address] [place], [place], [id number] Hepatitis C Antibodyon 11-07 Hepatitis C Ab Non-Reactive Normal Nonreactive [facility] Comment on above: Order Comment: Reaso n [...] HCV Quant by PCR testing - HCVPCR #[id number] Non Reactive: < 0.8 Equivocal: >/= 0.8 to < 1.0 Reactive: >/= 1.0 The [facility] requires that a reactive/equivocal HCV antibody result be sent out for confirmation. HCV Quant by PCR testing. Performed By: #### L 509.7001, L501.6710, L503.6030, L100.9950, L503.6550, L101.9900 #### [facility] [address] [facility] [place], [place], [address] L3890.6102on 11-07-2024 HEP B Surf Ag Non-Reactive Normal Nonreactive [facility] Comment on above: Order Comment: Reaso n for Exam: transaminitis Result Comment: Reac tive: Presumptive evidence of HBV. Repeatedly reactive samples must be confirmed using a neutralization test ([facility] HBsAg Confirmatory Test) Non-Reactive: HBsAg not detected; does not exclude the possibility of exposure to HBV Performed By: #### L 509.7001, L501.6710, L503.6030, L100.9950, L503.6550, L101.9900 #### [facility] [address] [place], [address] LDHon 11-07-2024 LDH 599 U/L High 84-246 [facility] Comment on above: Order Comment: Reaso n for Exam: transaminitis Performed By: #### L 509.7001, L501.6710, L503.6030, L100.9950, L503.6550, L101.9900 #### [facility] [address] [facility] [place], [address] M R Staph Aureus DNA by PCRo n 11-07-2024 MRSA DNA ASSAY Negative Normal Negative [facility] Comment on above: Performed By: #### L 509.7001, L501.6710, L503.6030, L100.9950, L503.6550, L101.9900 #### [facility] [address] [place], [address] Magnesiumon 11-07-2024 Magnesium [Mass/Vol] 1.7 mg/dL Normal 1.5-2.2 [facility] Comment on above: Performed By: #### L 509.7001, L501.6710, L503.6030, L100.9950, L503.6550, L101.9900 #### [facility] [address] [place], [place], [address] Phosphoruson 11-07-2024 Phosphate [Mass/Vol] 4.0 mg/dL Normal 2.7-4.5 [facility] Comment on above: Performed By: #### L 509.7001, L501.6710, L503.6030, L100.9950, L503.6550, L101.9900 #### [facility] [address] [facility] [place], [address] Syphilis Antibodieson 2024 Syphilis Abs Non-Reactive Normal Nonreactive [facility] Comment on above: Order Comment: Reaso n for Exam: transaminitis Performed By: #### L 509.7001, L501.6710, L503.6030, L100.9950, L503.6550, L101.9900 #### [facility] [address] [place], [address] DEDRICK Comprehensive Panelon DEDRICK TABLE TNP Normal [facility] Comment on above: Result Comment: WRON G TEST Performed By: #### L 3100.5440, L3300.1200 #### [facility] [address] [place], [address] ANTI-CENT B AB TNP Normal [facility] Comment on above: Result Comment: WRON G TEST Performed By: #### L 3100.5440, L3300.1200 #### [facility] [address] [place], [address] ANTI-KENNETH-1 TNP Normal [facility] Comment on above: Result Comment: WRON G TEST Performed By: #### L 3100.5440, L3300.1200 #### [facility] [address] [place], [address] ANTICHROMATIN TNP Normal [facility] Comment on above: Result Comment: WRON G TEST Performed By: #### L 3100.5440, L3300.1200 #### [facility] [address] [place], [address] ANTISCLERODERM TNP Normal [facility] Comment on above: Result Comment: WRON G TEST Performed By: #### L 3100.5440, L3300.1200 #### [facility] [address] [place], [address] NIPPLE MAKER Ab TNP Normal [facility] Comment on above: Result Comment: WRON G TEST Performed By: #### L 3100.5440, L3300.1200 #### [facility] [address] [place], [address] TABARES Ab TNP Normal [facility] Comment on above: Result Comment: WRON G TEST Performed By: #### L 3100.5440, L3300.1200 #### [facility] [address] [place], [address] ANTI-DNA (DS)AB Normal [facility] Comment on above: Result Comment: WRON G TEST Performed By: #### L 3100.5440, L3300.1200 #### [facility] [address] [place], [address] ANTI-SS-A Normal [facility] Comment on above: Result Comment: WRON G TEST Performed By: #### L 3100.5440, L3300.1200 #### [facility] [address] [place], [address] ANTI-SS-B Normal [facility] Comment on above: Result Comment: WRON G TEST Performed By: #### L 3100.5440, L3300.1200 #### [facility] [address] [place], [address] ANCAon 11-06-2024 Cytoplasmic Ab Normal Neg:<1:20 [facility] Comment on above: Result Comment: DUPL ICATE Performed By: #### L 3100.5440, L3300.1200 #### [facility] [address] [place], [address] Perinuclear Ab. Normal Neg:<1:20 [facility] Comment on above: Result Comment: DUPL ICATE Performed By: #### L 3100.5440, L3300.1200 #### [facility] [address] [place], [address] CBC W/Diff, Automatedon 06-0 Absolute Lymph 0.25 X10 3/uL Low 0.83-4.51 [facility] Comment on above: Performed By: #### L 500.4050, L503.6005, L100.0100 #### [facility] [address] [place], [address] Absolute Neut 4.6 X10 3/uL Normal 2.0-7.7 [facility] Comment on above: Performed By: #### L 500.4050, L503.6005, L100.0100 #### [facility] [address] [place], [address] Basophils/100 WBC (Bld) 0.2 % Normal 0-1 [facility] Comment on above: Performed By: #### L 500.4050, L503.6005, L100.0100 #### [facility] [address] [place], [address] Eosinophils/100 WBC (Bld) 1.0 % Normal 0-5 [facility] Comment on above: Performed By: #### L 500.4050, L503.6005, L100.0100 #### [facility] [address] [place], [address] Erythrocyte distribution width (RBC) [Ratio] 15.5 % High 11.6-14.6 [facility] Comment on above: Performed By: #### L 500.4050, L503.6005, L100.0100 #### [facility] [address] [place], [address] Hematocrit (Bld) [Volume fraction] 27.3 % Low 37-47 [facility] Comment on above: Performed By: #### L 500.4050, L503.6005, L100.0100 #### [facility] [address] [place], [address] Hemoglobin (Bld) [Mass/Vol] 9.2 g/dL Low 12.0-15.0 [facility] Comment on above: Performed By: #### L 500.4050, L503.6005, L100.0100 #### [facility] [address] [place], [address] IG% 0.400 Normal 0.0-0.9 [facility] Comment on above: Result Comment: IG% - Immature Granulocytes (promyelocytes, myelocytes and metamyelocytes) > 1% indicates that a LEFT SHIFT is Present. Performed By: #### L 500.4050, L503.6005, L100.0100 #### [facility] [address] [place], [address] Lymphocytes/100 WBC (Bld) 4.9 % Low 19-41 [facility] Comment on above: Performed By: #### L 500.4050, L503.6005, L100.0100 #### [facility] [address] [place], [address] MCH (RBC) [Entitic mass] 29.9 pg Normal 27.0-32.0 [facility] Comment on above: Performed By: #### L 500.4050, L503.6005, L100.0100 #### [facility] [address] [place], [address] MCHC (RBC) [Mass/Vol] 33.7 g/dL Normal 32-36 [facility] Comment on above: Performed By: #### L 500.4050, L503.6005, L100.0100 #### [facility] [address] [place], [address] MCV (RBC) [Entitic vol] 88.6 fL Normal 81-99 [facility] Comment on above: Performed By: #### L 500.4050, L503.6005, L100.0100 #### [facility] [address] [place], [address] Monocytes/100 WBC (Bld) 3.4 % Normal 0-10 [facility] Comment on above: Performed By: #### L 500.4050, L503.6005, L100.0100 #### [facility] [address] [place], [address] Neutrophils/100 WBC (Bld) 90.1 % High 47-70 [facility] Comment on above: Performed By: #### L 500.4050, L503.6005, L100.0100 #### [facility] [address] [place], [address] Nucleated RBC (Bld) [#/Vol] 0 10*3/uL Normal 0-5 [facility] Comment on above: Performed By: #### L 500.4050, L503.6005, L100.0100 #### [facility] [address] [place], [address] Platelet mean volume (Bld) [Entitic vol] 11.0 fL Normal 6.2-12.0 [facility] Comment on above: Performed By: #### L 500.4050, L503.6005, L100.0100 #### [facility] [address] [place], [address] Platelets (Bld) [#/Vol] 155 10*3/uL Normal 150-450 [facility] Comment on above: Performed By: #### L 500.4050, L503.6005, L100.0100 #### [facility] [address] [place], [address] RBC (Bld) [#/Vol] 3.08 10*6/uL Low 4.2-5.4 [facility] Comment on above: Performed By: #### L 500.4050, L503.6005, L100.0100 #### [facility] [address] [place], [address] RDW SD 50.0 fl High 35.1-43.9 [facility] Comment on above: Performed By: #### L 500.4050, L503.6005, L100.0100 #### [facility] [address] [place], [address] WBC (Bld) [#/Vol] 5.1 10*3/uL Normal 4.4-11.0 [facility] Comment on above: Performed By: #### L 500.4050, L503.6005, L100.0100 #### [facility] [address] [place], [address] CRPon 11-06-2024 C-REACTIVE PROT 56.70 mg/L High 0.0-3.0 [facility] Comment on above: Performed By: #### L 509.7001, L501.6710, L503.6030, L100.9950, L503.6550, L101.9900 #### [facility] [address] [place], [address] CTA Chest W/WO Contraston CTA Chest W/WO Contrast [facility] Imaging Services [address] [place] [address] CTA Chest W/WO Contrast MR#: [id number] Acct: [id number] Name: ALMA DELIA DOW Rep #: [id number] : 1985 F 38 From: Yanick Davila MD PCP: Care Physician,No Primary Status: ADM IN Study: CTA Chest W/WO Contrast Date of Exam: 11/06/24 Exam# [id number] Ordering Dr: Parish Frias MD EXAM: CT [...] both lungs, likely multifocal pneumonia. Reading Location: [facility] CC: Dr. Parish Frias MD; No Primary Care Physician Engraver Tender: Signed Normal [facility] Chest PA and Lateralon 11-06 Chest PA and Lateral [facility] Imaging Services [address] [place], [place] [address] Chest PA and Lateral MR#: [id number] Acct: [id number] Name: ALMA DELIA DOW Rep #: [id number] : 1985 F 38 From: Martell Wyman PCP: Care Physician,No Primary Status: REG ER Study: Chest PA and Lateral Date of Exam: 11/06/24 Exam# [id number] Ordering Dr: Parish Frias MD PROCEDURE: CHEST [...] No acute osseous changes seen. Reading Location: [id number] CC: Dr. Parish Frias MD; No Primary Care Physician Engraver Tender: Signed Normal [facility] Comprehensive Metabolic Prof ilon 11-06-2024 Albumin [Mass/Vol] 3.2 g/dL Low 3.5-5.0 [facility] Comment on above: Performed By: #### L 500.4050, L503.6005, L100.0100 #### [facility] [address] [facility] [place], [place], [id number] Albumin/Globulin [Mass ratio] 1.0 {ratio} Normal 0.9-2.4 [facility] Comment on above: Performed By: #### L 500.4050, L503.6005, L100.0100 #### [facility] [address] [place], [address] ALK PHOS 429 U/L High 35-104 [facility] Comment on above: Performed By: #### L 500.4050, L503.6005, L100.0100 #### [facility] [address] [place], [address] ALT [Catalytic activity/Vol] 42 U/L High <=34 [facility] Comment on above: Performed By: #### L 500.4050, L503.6005, L100.0100 #### [facility] [address] [place], [address] AST [Catalytic activity/Vol] 74 U/L High <=31 [facility] Comment on above: Performed By: #### L 500.4050, L503.6005, L100.0100 #### [facility] [address] [place], [address] Bilirubin [Mass/Vol] 0.45 mg/dL Normal 0.00-1.30 [facility] Comment on above: Performed By: #### L 500.4050, L503.6005, L100.0100 #### [facility] [address] [place], [address] BUN/CRE 16.6 RATIO Normal 10-20 [facility] Comment on above: Performed By: #### L 500.4050, L503.6005, L100.0100 #### [facility] [address] [place], [address] Calcium [Mass/Vol] 9.0 mg/dL Normal 7.6-11.0 [facility] Comment on above: Performed By: #### L 500.4050, L503.6005, L100.0100 #### [facility] [address] [place], [address] Chloride [Moles/Vol] 100 mmol/L Normal 98-108 [facility] Comment on above: Performed By: #### L 500.4050, L503.6005, L100.0100 #### [facility] [address] [place], [address] CO2 [Moles/Vol] 21.8 mmol/L Normal 21.0-32.0 [facility] Comment on above: Performed By: #### L 500.4050, L503.6005, L100.0100 #### [facility] [address] [place], [address] Creatinine [Mass/Vol] 0.80 mg/dL Normal 0.70-1.20 [facility] Comment on above: Performed By: #### L 500.4050, L503.6005, L100.0100 #### [facility] [address] [place], [address] ECRCL 68.49 ml/min Normal 50-250 [facility] Comment on above: Performed By: #### L 500.4050, L503.6005, L100.0100 #### [facility] [address] [place], [address] GAP 13 Normal 5-15 [facility] Comment on above: Performed By: #### L 500.4050, L503.6005, L100.0100 #### [facility] [address] [place], [address] GFR/1.73 sq M.predicted among non-blacks MDRD (S/P/Bld) [Vol rate/Area] 97 mL/min/{1.73_m2} Normal >60 [facility] Comment on above: Result Comment: mL/m in/1.73m2 CKD-EPI Creatinine Equation (2020) Performed By: #### L 500.4050, L503.6005, L100.0100 #### [facility] [address] [place], [address] Globulin (S) [Mass/Vol] 3.3 g/dL Normal 2.2-4.2 [facility] Comment on above: Performed By: #### L 500.4050, L503.6005, L100.0100 #### [facility] [address] [place], [address] Glucose [Mass/Vol] 105 mg/dL High 70-99 [facility] Comment on above: Performed By: #### L 500.4050, L503.6005, L100.0100 #### [facility] [address] [place], [address] Potassium [Moles/Vol] 2.8 mmol/L Low 3.3-5.1 [facility] Comment on above: Performed By: #### L 500.4050, L503.6005, L100.0100 #### [facility] [address] [place], [address] Sodium [Moles/Vol] 135 mmol/L Normal 133-145 [facility] Comment on above: Performed By: #### L 500.4050, L503.6005, L100.0100 #### [facility] [address] [place], [address] T PROT 6.5 g/dL Normal 5.9-8.4 [facility] Comment on above: Performed By: #### L 500.4050, L503.6005, L100.0100 #### [facility] [address] [place], [address] Urea nitrogen [Mass/Vol] 13 mg/dL Normal 4-19 [facility] Comment on above: Performed By: #### L 500.4050, L503.6005, L100.0100 #### [facility] [address] [place], [address] Consultation - Intensiviston 11-06-2024 Consultation - Manager Van [facility] Medical Records Department [address] [place] [address] Consultation - Manager Van 11/06/24 1831 MR#: [id number] Acct: [id number] Name: ALMA DELIA DOW Rep #: [id number] : 1985 38 From: Walt Krishnan MD PCP: Care Physician,No Primary Status:ADM IN Location: [place] [address] HPI Consult Data Date of Consult: 11/06/24 HPI Narrative HPI Narrative: ALMA DELIA DOW, is a 38 F who presents [facility] Medical History Anemia Migraine headache Gastric reflux [...] mls @ 15 mls/hr 11/06/24 17:03 IV .[id number] PRN Saline Flush Sodium Chloride 250 mls @ 15 mls/hr 11/06/24 17:03 IV .[id number] PRN Additional IVPB Infusion Methylprednisolone 40 mg [...] 90.1 H, Lymph % (Auto) 4.9 L, [place] % (Auto) 3.4, Eos % (Auto) 1.0, Baso % (Auto) 0.2, Absolute Neuts (auto) 4.6, Abs (more content not included)... Normal [facility] Emergency Department Summary on 11-06-2024 Emergency Department Summary [facility] Medical Records Department [address] [place] [address] Emergency Department Summary 11/06/24 MR#: [id number] Acct: [id number] Name: ALMA DELIA DOW Rep #: [id number] : 1985 38 From: Parish Frias MD PCP: Care Physician,No Primary Status:REG ER [...] a smoker. She was seen at the [facility] urgent care and diagnosed with a clinical [...] Method Room (more content not included)... Normal [facility] Erythrocyte Sed Rateon 11-06 SED RATE 28 mm/hr Normal 0-30 [facility] Comment on above: Performed By: #### L 509.7001, L501.6710, L503.6030, L100.9950, L503.6550, L101.9900 #### [facility] [address] [place], [address] Ferritinon 11-06-2024 Ferritin [Mass/Vol] 1130 ng/mL High 22-378 [facility] Comment on above: Performed By: #### L 509.7001, L501.6710, L503.6030, L100.9950, L503.6550, L101.9900 #### [facility] [address] [place], [address] H AND P Exam - Hospitaliston 11-06-2024 H&P Exam - Hospitalist [facility] Medical Records Department [address] [place] [address] H P Exam - Hospitalist 11/06/24 1549 MR#: [id number] Acct: [id number] Name: ALMA DELIA DOW Rep #: [id number] : 1985 38 From: Shayy Dodson DO PCP: Care Physician,No Primary Status:ADM IN Location: [place] [address] HPI - General General Date of Admission: 11/06/24 Date of Service: 11/06/24 Chief Complaint: Shortness of breath HPI Narrative ALMA DELIA DOW, is a 38 F who presented to the emergency department [facility] on 11/06/2024 with a chief complaint of [...] department and request for admission was made. [facility] Medical History Anemia Migraine headache Gastric reflux [...] urinary hesitancy (more content not included)... Normal [facility] HIVon 11-06-2024 HIV Reactive Abnormal Nonreactive [facility] Comment on above: Result Comment: Non- Reactive Reactive Repeatedly reactive samples must be confirmed according to CDC recommended confirmatory algorithms. The subresults for either HIVAG or AHIV can be used as an aid in the selection of the confirmation algorithm for reactive samples. Send out specimens with Reactive results to [facility] for confirmation. Order the HIV antibody detection and differentiation: #[id number] Performed By: #### L 509.7001, L501.6710, L503.6030, L100.9950, L503.6550, L101.9900 #### [facility] [address] [place], [address] Iron+Iron Binding Capacityon 11-06-2024 IRON SATURATION 10.4 Low 13-59 [facility] Comment on above: Result Comment: AMENDED REPORT 11/06/241944 IRON SATURATION previously reported as: 10.0 L % Performed By: #### L 509.7001, L501.6710, L503.6030, L100.9950, L503.6550, L101.9900 #### [facility] [address] [place], [address] TIBC 221 ug/dL Low 250-450 [facility] Comment on above: Performed By: #### L 509.7001, L501.6710, L503.6030, L100.9950, L503.6550, L101.9900 #### [facility] [address] [place], [address] L503.7505on 11-06-2024 Natriuretic peptide B (Bld) [Mass/Vol] 317 pg/mL Normal <=450 [facility] Comment on above: Result Comment: Hear t Failure Unlikely: < 300 pg/mL Heart Failure Likely < 50 Years: > 450 pg/mL 50-75 Years: > 900 pg/mL >75 Years: > 1800 pg/mL Performed By: #### L 509.7001, L501.6710, L503.6030, L100.9950, L503.6550, L101.9900 #### [facility] [address] [place], [address] L509.7001on 11-06-2024 Procalcitonin 0.53 ng/mL High <=0.10 [facility] Comment on above: Result Comment: Inte rpretation: [...] 509.7001, L501.6710, L503.6030, L100.9950, L503.6550, L101.9900 #### [facility] [address] [place], [address] LDHon 11-06-2024 LDH 467 U/L High 84-246 [facility] Comment on above: Performed By: #### L 509.7001, L501.6710, L503.6030, L100.9950, L503.6550, L101.9900 #### [facility] [address] [place], [address] Lactic Acidon 11-06-2024 Lactate [Moles/Vol] mmol/L Normal 0.0-2.0 [facility] Comment on above: Order Comment: Y Performed By: #### L 509.7001, L501.6710, L503.6030, L100.9950, L503.6550, L101.9900 #### [facility] [address] [place], [address] Legionella Antigen Urineon 0 11-06-2024 LEGU Comments: Only Recommended for severe cases of pneumonia Only Recommended for severe cases of pneumonia Legionella Antigen result interpretation: L pneumo Ag Ur Ql Negative Presumptive negative for Legionella pneumophila serogroup 1 antigen in urine, suggesting no recent or current infection. Legionella Ag, Urine Negative (See interpretation below) Normal [facility] Comment on above: Performed By: #### L 509.7001, L501.6710, L503.6030, L100.9950, L503.6550, L101.9900 #### [facility] [address] [place], [address] M100.678on 11-06-2024 M100.678 SARS-CoV-2 (COVID 19 ) Negative INFLUENZA A Negative INFLUENZA B Negative RSV PCR Negative Normal [facility] Comment on above: Performed By: #### L 509.7001, L501.6710, L503.6030, L100.9950, L503.6550, L101.9900 #### [facility] [address] [place], [place], [id number] ,Urineon 11-06-2024 Beta HCG ( test) Ql (U) Negative Normal [facility] Comment on above: Result Comment: Very dilute urine specimens, as indicated by a low specific gravity, may not contain food products sales representative levels of hCG. If is still suspected, a first morning urine specimen should be collected 48 hours later and tested. Performed By: #### L 509.7001, L501.6710, L503.6030, L100.9950, L503.6550, L101.9900 #### [facility] [address] [place], [place], [id number] RESPIRATORY PANEL MOLECULARo n 11-06-2024 RP PANEL ADENOVIRUS Not Detected INFLUENZA A Not Detected INFLUENZA A (SUBTYPE H1) Not Detected INFLUENZA A (SUBTYPE H3) Not Detected INFLUENZA B Not Detected HUMAN METAPHNEUMO Not Detected PARAINFLUENZA 1 Not Detected PARAINFLUENZA 2 Not Detected PARAINFLUENZA 3 Not Detected PARAINFLUENZA 4 Not Detected RHINOVIRUS Not Detected RSV A Not Detected RSV B Not Detected Normal [facility] Comment on above: Performed By: #### L 509.7001, L501.6710, L503.6030, L100.9950, L503.6550, L101.9900 #### [facility] [address] [place], [address] Retic Panelon 11-06-2024 IM RET FRACTION 9.90 Normal 3.00-15.90 [facility] Comment on above: Performed By: #### L 509.7001, L501.6710, L503.6030, L100.9950, L503.6550, L101.9900 #### [facility] [address] [place], [place], [id number] RET-HE 29.6 pg Low 30-35 [facility] Comment on above: Performed By: #### L 509.7001, L501.6710, L503.6030, L100.9950, L503.6550, L101.9900 #### [facility] [address] [place], [place], [address] Retic Count 1.09 Normal 0.5-1.5 [facility] Comment on above: Performed By: #### L 509.7001, L501.6710, L503.6030, L100.9950, L503.6550, L101.9900 #### [facility] [address] [place], [place], [address] Strep pneumoniae Antig(UR,CS F)on 11-06-2024 STPAG Comments: [...] Test Negative URINE (See interpretation below) Normal [facility] Comment on above: Performed By: #### L 509.7001, L501.6710, L503.6030, L100.9950, L503.6550, L101.9900 #### [facility] [address] [facility] [place], [address] Urinalysis, Completeon 11-06 EPI,SQUAMOUS 0-5 SEEN Normal 5-10 [facility] Comment on above: Order Comment: Urine , Random Performed By: #### L 509.7001, L501.6710, L503.6030, L100.9950, L503.6550, L101.9900 #### [facility] [address] [place], [place], [address] RBC 0-5 SEEN Normal 0-5 [facility] Comment on above: Order Comment: Urine , Random Performed By: #### L 509.7001, L501.6710, L503.6030, L100.9950, L503.6550, L101.9900 #### [facility] [address] [place], [address] WBC 0-5 SEEN Normal 0-5 [facility] Comment on above: Order Comment: Urine , Random Performed By: #### L 509.7001, L501.6710, L503.6030, L100.9950, L503.6550, L101.9900 #### [facility] [address] [place], [address] BACTERIA 0 SEEN Normal None Seen [facility] Comment on above: Order Comment: Urine , Random Performed By: #### L 509.7001, L501.6710, L503.6030, L100.9950, L503.6550, L101.9900 #### [facility] [address] [place], [address] Mucus Ql (Urine sed) 0 SEEN Normal [facility] Comment on above: Order Comment: Urine , Random Performed By: #### L 509.7001, L501.6710, L503.6030, L100.9950, L503.6550, L101.9900 #### [facility] [address] [place], [address] Urine Drug Screen (VISTA)on 11-06-2024 AMPHETAMINES Negative Normal <1000 ng/mL [facility] Comment on above: Performed By: #### L 509.7001, L501.6710, L503.6030, L100.9950, L503.6550, L101.9900 #### [facility] [address] [place], [address] BARBITIURATES Negative Normal < 200 ng/mL [facility] Comment on above: Performed By: #### L 509.7001, L501.6710, L503.6030, L100.9950, L503.6550, L101.9900 #### [facility] [address] [place], [address] BENZODIAZIPINE Negative Normal < 200 ng/mL [facility] Comment on above: Performed By: #### L 509.7001, L501.6710, L503.6030, L100.9950, L503.6550, L101.9900 #### [facility] [address] [place], [place], [facility] BUP Ur Drug Scr Negative Normal < 200 ng/mL [facility] Comment on above: Performed By: #### L 509.7001, L501.6710, L503.6030, L100.9950, L503.6550, L101.9900 #### [facility] [address] [place], [address] COCAINE Negative Normal < 300 ng/mL [facility] Comment on above: Performed By: #### L 509.7001, L501.6710, L503.6030, L100.9950, L503.6550, L101.9900 #### [facility] [address] [place], [place], [facility] Fentanyl Negative Normal [facility] Comment on above: Performed By: #### L 509.7001, L501.6710, L503.6030, L100.9950, L503.6550, L101.9900 #### [facility] [address] [place], [place], [facility] METHADONE Negative Normal < 300 ng/mL [facility] Comment on above: Performed By: #### L 509.7001, L501.6710, L503.6030, L100.9950, L503.6550, L101.9900 #### [facility] [address] [place], [address] OPIATES Negative Normal < 300 ng/mL [facility] Comment on above: Performed By: #### L 509.7001, L501.6710, L503.6030, L100.9950, L503.6550, L101.9900 #### [facility] [address] [place], [address] OXYCODONE Negative Normal < 100 ng/mL [facility] Comment on above: Performed By: #### L 509.7001, L501.6710, L503.6030, L100.9950, L503.6550, L101.9900 #### [facility] [address] [place], [address] PCP Negative Normal < 25 ng/mL [facility] Comment on above: Performed By: #### L 509.7001, L501.6710, L503.6030, L100.9950, L503.6550, L101.9900 #### [facility] [address] [place], [place], [facility] THC Negative Normal < 50 ng/mL [facility] Comment on above: Performed By: #### L 509.7001, L501.6710, L503.6030, L100.9950, L503.6550, L101.9900 #### [facility] [address] [place], [address] AMPHETAMINES Normal <1000 ng/mL [facility] Comment on above: Result Comment: DUPL ICATE ORDER, CONFIRMED WITH MARK (PCU) Performed By: #### L 509.7001, L501.6710, L503.6030, L100.9950, L503.6550, L101.9900 #### [facility] [address] [place], [address] BARBITIURATES Normal < 200 ng/mL [facility] Comment on above: Result Comment: DUPL ICATE ORDER, CONFIRMED WITH MARK (PCU) Performed By: #### L 509.7001, L501.6710, L503.6030, L100.9950, L503.6550, L101.9900 #### [facility] [address] [place], [place], [id number] ([address]) BENZODIAZIPINE Normal < 200 ng/mL [facility] Comment on above: Result Comment: DUPL ICATE ORDER, CONFIRMED WITH MARK (PCU) Performed By: #### L 509.7001, L501.6710, L503.6030, L100.9950, L503.6550, L101.9900 #### [facility] [address] [place], [address] BUP Ur Drug Scr Normal < 200 ng/mL [facility] Comment on above: Result Comment: DUPL ICATE ORDER, CONFIRMED WITH MARK (PCU) Performed By: #### L 509.7001, L501.6710, L503.6030, L100.9950, L503.6550, L101.9900 #### [facility] [address] [place], [address] COCAINE Normal < 300 ng/mL [facility] [facility] Comment on above: Result Comment: DUPL ICATE ORDER, CONFIRMED WITH MARK (PCU) Performed By: #### L 509.7001, L501.6710, L503.6030, L100.9950, L503.6550, L101.9900 #### [facility] [address] [place], [address] Fentanyl Normal [facility] Comment on above: Result Comment: DUPL ICATE ORDER, CONFIRMED WITH MARK (PCU) Performed By: #### L 509.7001, L501.6710, L503.6030, L100.9950, L503.6550, L101.9900 #### [facility] [address] [place], [address] METHADONE Normal < 300 ng/mL [facility] Comment on above: Result Comment: DUPL ICATE ORDER, CONFIRMED WITH MARK (PCU) Performed By: #### L 509.7001, L501.6710, L503.6030, L100.9950, L503.6550, L101.9900 #### [facility] [address] [place], [address] OPIATES Normal < 300 ng/mL [facility] Comment on above: Result Comment: DUPL ICATE ORDER, CONFIRMED WITH MARK (PCU) Performed By: #### L 509.7001, L501.6710, L503.6030, L100.9950, L503.6550, L101.9900 #### [facility] [address] [place], [address] OXYCODONE Normal < 100 ng/mL [facility] Comment on above: Result Comment: DUPL ICATE ORDER, CONFIRMED WITH MARK (PCU) Performed By: #### L 509.7001, L501.6710, L503.6030, L100.9950, L503.6550, L101.9900 #### [facility] [address] [place], [address] PCP Normal < 25 ng/mL [facility] Comment on above: Result Comment: DUPL ICATE ORDER, CONFIRMED WITH MARK (PCU) Performed By: #### L 509.7001, L501.6710, L503.6030, L100.9950, L503.6550, L101.9900 #### [facility] [address] [place], [address] THC Normal < 50 ng/mL [facility] Comment on above: Result Comment: DUPL ICATE ORDER, CONFIRMED WITH MARK (PCU) Performed By: #### L 509.7001, L501.6710, L503.6030, L100.9950, L503.6550, L101.9900 #### [facility] [address] [place], [address] CNOVon 01-15-2024 CNOV Office Visit (UCTR ) ALMA DELIA DOW ([id number]) 1985 F Date Time Provider Department 01/15/24 6:45 PM KENDRICK CABRERA [facility] During your visit today, we recorded [...] [R05.1] Wheezing [R06.2] Order(s):STREP A MOLECULAR (POC) [[id number]] Order #: [id number]. #:[id number] albuterol HFA (PROVENTIL HFA, VENTOLIN HFA) 90 [...] Medications Dis (more content not included)... Normal [facility] STREP A MOLECULAR (POC)on Procedural Control Valid [facility] Strep A (POCT) Negative Negative [facility] CNOVon 08-21-2023 CNOV Office Visit (UCWSTR ) ALMA DELIA DOW ([id number]) 1985 F Date Time Provider Department 08/21/23 7:00 PM BRYCECLIFTONDEL [facility] During your visit today, we recorded the following information about you: Temperature Pulse Respiration Blood pressure 98.8 degrees 94/minute 16/minute 122/78 Weight 73.3 kg Del Wu APRN.TRAVEL GUIDE 08/21/2023 7:02 PM Signed Subjective HPI Nontoxic-appearing [...] (FLONASE) 50 mcg/actuation nasal spray Use 1 [place] in each nostril once daily. (Patient not [...] or rale (more content not included)... Normal [facility] CNOVon 04-23-2023 CNOV Office Visit (UCWSTR ) ALMA DELIA DOW ([id number]) 1985 F Date Time Provider Department 04/23/23 2:30 PM MARINA VERONICA [facility] During your visit today, we recorded the following information about you: Temperature Pulse Respiration Blood pressure 98.2 degrees 111/minute 16/minute 128/90 Weight 75.8 kg Marina Veronica APRN.TRAVEL GUIDE 04/23/2023 2:56 PM Signed This note was created using Fanwardsriter. Subjective Alma Delia Wyman Paloma is a [...] (FLONASE) 50 mcg/actuation nasal spray Use 1 [place] in each nostril once daily. - norelgestromin-ethiny [...] Status:Closed by MARINA VERONICA on 04/23/23 Normal [facility] Cervical or vagninal specime n microscopic examination by cytology stain (reported asOrdered By: Marilyn Hazel on 2022 Cytology report Cyto stain Doc (Cvx/Vag) Comment . [facility] Comment on above: The Pap smear is [...] DNA Probe+sig amp Ql (Cvx) Negative Negative [facility] Comment on above: This nucleic acid am plification test detects fourteen high- risk HPV types (16,18,31,33,35,39,45,51,52,56,58,59,66,68)without differentiation. Laboratory - CytologyOrdered By: Marilyn Hazel on 2022 Leaf Conditioner Cyto stain Nom (Cvx/Vag) [ID] Comment . [facility] Comment on above: Nitin Guthrie, Cyto technologist (ASCP) Laboratory - Miscellaneous t estsOrdered By: Marilyn Hazel on 2022 Service comment (Unsp spec) [Interp] Comment . [facility] Comment on above: This liquid based Th inPrep(R) pap test was screened withthe use of an image guided system. Service comment (Unsp spec) [Interp] . . [facility] Liquid-based cerv Pap + CT/G C by JULISSA w reflex to high-risk HPV for ASCUSOrdered By: Marilyn Hazel on 2022 Cytology report Cyto stain.thin prep Doc (Cvx/Vag) Comment . [facility] Comment on above: Criteria not met, HP V Genotype not performed.Performed at: [facility] - [facility] [address] [place], [place] [id number] Director: Adele Nino MD, Phone: [phone] at: =G - [facility] [address] [place], [place] [id number] Director: Adele Nino MD, Phone: [phone] No Panel InformationOrdered By: Marilyn Hazel on 2022 Pathology report final diagnosis Narrative Comment . [facility] Comment on above: NEGATIVE FOR INTRAEP ITHELIAL LESION OR MALIGNANCY. Laboratory - Chemistry and C hemistry - challengeon 02-04-2022 HCG ( test) Ql (U) Negative [facility] Work Phone: Comment on above: Very dilute urine sp ecimens, as indicated by a low specificgravity, may not contain food products sales representative levels of hCG. If is still suspected, a first morning urinespecimen should be collected 48 hours later and tested. No Panel Informationon 01-28 Radiology Study observation (narrative) [facility] XR Ribs - right Views and est PAon 01-28-2021 IMPRESSION: No acute findings. Engraver Tender: SILAS Transcribe Date/Time: Jan 28 2021 4:50P Dictated by : JUNG ASHLEY MD This examination was interpreted and the report reviewed and electronically signed by: JUNG ASHLEY MD on Jan 28 2021 4:55PM [facility] DIVISION OF RADIOLOGY * * [...] right rib fracture. DIVISION OF RADIOLOGY Provider, [facility] - 01/28/2021 * * *Final Report* * [...] rib fracture. IMPRESSION IMPRESSION: No acute findings. Engraver Tender[facility] Transcribe Date/Time: Jan 28 2021 4:50P Dictated by : JUNG ASHLEY MD This examination was interpreted and the report reviewed and electronically signed by: JUNG ASHLEY MD on Jan 28 2021 4:55PM [facility] XR Shoulder - right 3 Viewso n 01-28-2021 IMPRESSION: No acute radiographic abnormalities seen in the right shoulder. Engraver Tender: [facility] Transcribe Date/Time: Jan 28 2021 4:49P Dictated by : PRITESH ROBINS MD This examination was interpreted and the report reviewed and electronically signed by: PRITESH ROBINS MD on Jan 28 2021 4:51PM [facility] DIVISION OF RADIOLOGY * * [...] swelling. DIVISION OF RADIOLOGY Provider, Violetta gambino [place] - 01/28/2021 * * *Final Report* * [...] radiographic abnormalities seen in the right shoulder. Engraver Tender: SILAS Transcribe Date/Time: Jan 28 2021 4:49P Dictated by : PRITESH ROBINS MD This examination was interpreted and the report reviewed and electronically signed by: PRITESH ROBINS MD on Jan 28 2021 4:51PM [facility] XR Shoulder - right 3 ViewsO rdered By: [facility] Provider on 01-28-2021 [facility] Vital Signs Date Time Vital Sign Value Performing Clinician Facility 01-15-2024 18:47-0400 Body mass index (BMI) [Ratio] 31.65 kg/m2 Kendrick Cabrera MD Work Phone: [facility] 01-15-2024 18:47-0400 Body temperature 98.01 [degF] Kendrick Cabrera MD Work Phone: [facility] 01-15-2024 18:47-0400 Body weight 73.5 kg Kendrick Cabrera MD Work Phone: [facility] 01-15-2024 18:47-0400 Diastolic blood pressure 84 mm[Hg] Kendrick Cabrera MD Work Phone: [facility] 01-15-2024 18:47-0400 Heart rate 101 /min Kendrick Cabrera MD Work Phone: [facility] 01-15-2024 18:47-0400 Respiratory rate 18 /min Kendrick Cabrera MD Work Phone: [facility] 01-15-2024 18:47-0400 SaO2% (BldA) [Mass fraction] 98 % Kendrick Cabrera MD Work Phone: [facility] 01-15-2024 18:47-0400 Systolic blood pressure 138 mm[Hg] Kendrick Cabrera MD Work Phone: [facility] 08-21-2023 18:51-0400 Body temperature 98.8 [degF] Del Francesledestinee TEST FIXTURE DESIGNER.TRAVEL GUIDE Work Phone: [facility] 08-21-2023 18:51-0400 Body weight 73.3 kg Delorin Wu TEST FIXTURE DESIGNER.TRAVEL GUIDE Work Phone: [facility] 08-21-2023 18:51-0400 Diastolic blood pressure 78 mm[Hg] Del Pendledestinee TEST FIXTURE DESIGNER.TRAVEL GUIDE Work Phone: [facility] 08-21-2023 18:51-0400 Heart rate 94 /min Del Bryce TEST FIXTURE DESIGNER.TRAVEL GUIDE Work Phone: [facility] 08-21-2023 18:51-0400 Respiratory rate 16 /min Del Pendledestinee TEST FIXTURE DESIGNER.TRAVEL GUIDE Work Phone: [facility] 08-21-2023 18:51-0400 SaO2% (BldA) [Mass fraction] 97 % Del Wu TEST FIXTURE DESIGNER.TRAVEL GUIDE Work Phone: [facility] 08-21-2023 18:51-0400 Systolic blood pressure 122 mm[Hg] Del Wu TEST FIXTURE DESIGNER.TRAVEL GUIDE Work Phone: [facility] 06-08-2023 12:59-0500 Body height 152.4 cm No Primary Care Physician [facility] 06-08-2023 12:59-0500 Body mass index (BMI) [Ratio] 32.8 kg/m2 No Primary Care Physician [facility] 06-08-2023 12:59-0500 Body temperature 98.3 [degF] No Primary Care Physician [facility] 06-08-2023 12:59-0500 Body weight 76.31 kg No Primary Care Physician [facility] 06-08-2023 12:59-0500 Diastolic blood pressure 74 mm[Hg] No Primary Care Physician [facility] 06-08-2023 12:59-0500 Heart rate 110 /min No Primary Care Physician [facility] 06-08-2023 12:59-0500 Respiratory rate 16 /min No Primary Care Physician [facility] 06-08-2023 12:59-0500 SaO2% (BldA) [Mass fraction] 98 % No Primary Care Physician [facility] 06-08-2023 12:59-0500 Systolic blood pressure 110 mm[Hg] No Primary Care Physician [facility] 04-23-2023 14:42-0500 Body temperature 98.2 [degF] Marina Veronica APRN.TRAVEL GUIDE Work Phone: [facility] 04-23-2023 14:42-0500 Body weight 75.75 kg Marina Vreonica APRN.TRAVEL GUIDE Work Phone: [facility] 04-23-2023 14:42-0500 Diastolic blood pressure 90 mm[Hg] Marina Veronica APRN.TRAVEL GUIDE Work Phone: [facility] 04-23-2023 14:42-0500 Heart rate 111 /min Marina Veronica APRN.TRAVEL GUIDE Work Phone: [facility] 04-23-2023 14:42-0500 Respiratory rate 16 /min Marina Veronica APRN.TRAVEL GUIDE Work Phone: [facility] 04-23-2023 14:42-0500 SaO2% (BldA) [Mass fraction] 98 % Marina Veronica APRN.TRAVEL GUIDE Work Phone: [facility] 04-23-2023 14:42-0500 Systolic blood pressure 128 mm[Hg] Marina Veronica APRN.TRAVEL GUIDE Work Phone: [facility] 02-04-2022 15:41-0400 Body temperature 97.9 [degF] [facility] Work Phone: 02-04-2022 15:41-0400 Diastolic blood pressure 76 mm[Hg] [facility] Work Phone: 02-04-2022 15:41-0400 Heart rate 93 /min [facility] Work Phone: 02-04-2022 15:41-0400 Respiratory rate 16 /min [facility] Work Phone: 02-04-2022 15:41-0400 SaO2% (BldA) [Mass fraction] 92 % [facility] Work Phone: 02-04-2022 15:41-0400 Systolic blood pressure 109 mm[Hg] [facility] Work Phone: 02-04-2022 11:29-0400 Body height 152.4 cm [facility] Work Phone: 02-04-2022 11:29-0400 Body mass index (BMI) [Ratio] 33.6 kg/m2 [facility] Work Phone: 02-04-2022 11:29-0400 Body weight 78.1 kg [facility] Work Phone: 01-29-2022 23:17-0400 Respiratory rate 18 /min [facility] Work Phone: 01-29-2022 21:11-0400 Body mass index (BMI) [Ratio] 32.2 kg/m2 [facility] Work Phone: 01-29-2022 21:11-0400 Body temperature 98.9 [degF] [facility] Work Phone: 01-29-2022 21:11-0400 Body weight 74.84 kg [facility] Work Phone: 01-29-2022 21:11-0400 Diastolic blood pressure 96 mm[Hg] [facility] Work Phone: 01-29-2022 21:11-0400 Heart rate 141 /min [facility] Work Phone: 01-29-2022 21:11-0400 SaO2% (BldA) [Mass fraction] 99 % [facility] Work Phone: 01-29-2022 21:11-0400 Systolic blood pressure 136 mm[Hg] [facility] Work Phone: Encounters Encounter Date Encounter Type Care Provider Facility Start: 11-06-2024 ambulatory No Primary Car e Physician Facility:[facility] Start: 11-06-2024 Evaluation and management of inpatient No Primary Care Physician Facility:[facility] Start: 01-15-2024 End: 01-15-2024 ambulatory Facility:[facility] Start: 01-15-2024 End: 01-15-2024 Patient encounter procedure Kendrick Cabrera MD Work Phone: [facility] Comment on above: Sore throat (Primary Dx); Acute cough; Wheezing Start: 08-21-2023 End: 08-21-2023 ambulatory Facility:[facility] Start: 08-21-2023 End: 08-21-2023 Office outpatient visit 15 minutes Del Wu APRN.CNP Work Phone: [facility] Comment on above: Eustachian tube dysf unction, bilateral (Primary Dx) Start: 06-13-2023 Patient encounter procedure No Primary Care Physician [facility] Work Phone: Start: 06-08-2023 End: 06-08-2023 ambulatory No Primary Care Physician [facility] Work Phone: Start: 06-08-2023 End: 06-08-2023 Patient encounter procedure No Primary Care Physician [facility] Work Phone: Start: 06-08-2023 End: 06-08-2023 Patient encounter procedure No Primary Care Physician [facility] Work Phone: Start: 06-08-2023 End: 06-08-2023 ambulatory No Primary Care Physician [facility] Work Phone: Start: 06-08-2023 End: 06-08-2023 Patient encounter procedure No Primary Care Physician 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 Start: 02-04-2022 End: 02-04-2022 Admission to same day surgery center [facility] Start: 02-04-2022 End: 02-04-2022 ambulatory [facility] Work Phone: Start: 01-29-2022 End: 01-29-2022 Emergency department patient visit [facility] Start: 01-28-2021 End: 01-28-2021 Subsequent hospital visit by physician Xr [facility] Work Phone: Radiology Comment on above: Acute pain of right shoulder [M25.511] Procedures Date Procedure Procedure Detail Performing Clinician Start: 01-15-2024 STREP A MOLECULAR (POC) Samantha Guzmán APRN.TRAVEL GUIDE Work Phone: Start: 06-08-2023 CT of upper limb wit hout contrast No Primary Care Physician Start: 06-08-2023 Plain x-ray of wrist No Primary Care Physician Start: 02-04-2022 Fluoroscopic guidance Start: 02-04-2022 Open reduction of fr acture with internal fixation Start: 01-29-2022 X-ray of radius and ulna Start: 01-28-2021 Radex ribs uni w/posteroant ch minimum 3 views Nalini Allen APRN.TRAVEL GUIDE Work Phone: Plan of Treatment Date Care Activity Detail Author Start: 11-05-2026 Urine microalbumin profile DTaP,Tdap,Td Vaccine (2 - Td or Tdap) [facility] Start: 02-04-2024 Covid-19 Vaccine ( season) Covid-19 Vaccine () [facility] Start: 02-04-2024 Influenza vaccination Influenza Vaccine (#1) [facility] Start: 06-08-2023 Radex wrist complete minimum 3 views X-RAY EXAM OF WRIST [facility] Start: 06-05-2023 Depression Assessment Depression Assessment [facility] Start: 02-03-2023 Covid-19 Vaccine ( season) Covid-19 Vaccine ( season) [facility] Start: 02-03-2023 Influenza vaccination Influenza Vaccine (#1) [facility] Start: 06-05-2022 Depression Assessment Depression Assessment [facility] Start: 02-04-2022 Application of ice collar, cap or bag [facility] Work Phone: Start: 02-04-2022 Catheterization of vein [facility] Work Phone: Start: 02-04-2022 Elevation of affected extremity [facility] Work Phone: Start: 02-04-2022 Following clinical pathway protocol [facility] Work Phone: Start: 02-04-2022 Patient discharge [facility] Work Phone: Start: 02-04-2022 Procedure discontinued [facility] Work Phone: Start: 02-04-2022 Taking patient vital signs [facility] Work Phone: Start: 02-04-2022 Vital signs measurements [facility] Work Phone: Start: 02-04-2022 [facility] Work Phone: Start: 02-04-2022 Plain x-ray of wrist Wrist 2 Views [facility] Work Phone: Start: 02-04-2022 XR Wrist 2 Views [facility] Work Phone: Start: 02-04-2022 Medication education [facility] Work Phone: Start: 01-29-2022 Application short arm splint dynamic APPLY FOREARM SPLINT [facility] Work Phone: Start: 12-10-2018 Pap Testing Pap Testing [facility] Start: 12-10-2018 Screening for malignant neoplasm of cervix Pap Testing [facility] Start: 12-10-2016 Screening for malignant neoplasm of cervix Cervical Cancer Screening [facility] Start: 11-18-2015 HPV Testing HPV Testing [facility] Start: 11-18-2015 Screening for malignant neoplasm of cervix HPV Testing [facility] Start: 2004 Hepatitis B Vaccine (1 of 3 - 19+ 3-dose series) Hepatitis B Vaccine (1 of 3 - 19+ 3-dose series) [facility] Start: 11-18-2003 Anxiety Screening Anxiety Screening [facility] Start: 11-18-2003 Depression Screening Depression Screening [facility] Start: 11-18-2003 Hepatitis C Screening Hepatitis C Screening [facility] Start: 11-18-2003 Hepatitis C screening Hepatitis C Screening [facility] Start: 11-18-2003 HIV Screening HIV Screening [facility] Start: 11-18-2003 HIV screening HIV Screening [facility] Start: 11-18-1991 Pneumococcal vaccination [facility] Start: 05-19-1986 Covid-19 Vaccine (#1) Covid-19 Vaccine (#1) [facility] Start: 1985 Hepatitis B Vaccine (1 of 3 - 3-dose series) Hepatitis B Vaccine (1 of 3 - 3-dose series) [facility] Patient Education ED Fracture, U pper Extremity [facility] Work Phone: Patient referral [facility] Work Phone: Immunizations Immunization Date Immunization Notes Care Provider Suzie boo 11-05-2016 tetanus toxoid, redu blake diphtheria toxoid, and acellular pertussis vaccine, adsorbed [facility] 03-02-2009 influenza virus vaccine, unspecified formulation Marina Veronica APRN.TRAVEL GUIDE Work Phone: [facility] Payers Date Payer Category Payer Self-pay [id number] 2022 Medicaid [id number] 2022 Unknown [id number] 2011 Medicaid [id number] Unknown [id number] Unknown [id number] Unknown [id number] Unknown [id number] [id number] Social History Date Type Detail Facility Start: 02-03-2022 End: 06-13-2023 Tobacco smoking status [facility] Unknown if ever smoked [facility] Start: 02-04-2019 Rare [facility] Start: 02-04-2019 None [facility] Start: 02-04-2019 With Family [facility] Start: 12-31-2018 Cigarettes [facility] Start: 1985 Sex Assigned At Female [facility] Start: 06-25-2003 End: 01-17-2022 Tobacco smoking status [facility] Smokes tobacco daily [facility] Start: 06-25-2003 History of tobacco use Cigarette Smoker [facility] Start: 05-11-2020 End: 01-17-2022 Cigarettes smoked current (pack per day) - Reported 0.5 [facility] Start: 03-25-2014 End: 01-17-2022 Tobacco use and exposure Smokeless tobacco non-user [facility] Start: 01-28-2021 End: 04-23-2023 Alcohol intake Current drinker of alcohol (finding) [facility] Start: 05-11-2020 End: 04-23-2023 Tobacco use panel [facility] National Score (1-100), lower number is lower risk Not on file [facility] Start: 03-25-2014 Alcohol Comment rare Eleanor kilgore [facility] Start: 1985 [facility] Start: 12-29-2020 End: 01-28-2021 Exposure to SARS-CoV-2 (event) Yes [facility] NEGATED: Highlighted row [facility] Work Phone: Medical Equipment Procedure Code Equipment Code Equipment Origin al Text Equipment Identifier Dates ORIF, fracture, wrist 3.5 mm cortex screws, self-tapping FDA Start: 02-04-2022 ORIF, fracture, wrist ([id number]) Orthopaedic bone screw, non-bioabsorbable, non-sterile ()[id number] FDA Start: 02-04-2022 ORIF, fracture, wrist ([id number]) Orthopaedic fixation plate, non-bioabsorbable, sterile ()[id number] FDA Start: 02-04-2022 ORIF, fracture, wrist 3.5 [...] Result Facility 02-04-2022 Cognitive function Voice/Name [facility] Work Phone: Clinical Notes 01-28-2021 to 01-15-2024 Kendrick Cabrera MD - 01/15/2024 6:51 PM Del Saucedo APRN.TRAVEL GUIDE - 08/21/2023 6:59 PM Marina Vazquez APRN.TRAVEL GUIDE - 04/23/2023 2:50 PM EST Note Date & Type Note Facility 01-15-2024 Note HNO ID: [id number] Author: KENDRICK CABRERA MD Service: ? Author [...] BENZONATATE 100 MG CAPSULE Kendrick Cabrera MD [facility] 01-15-2024 History of Present illness Narrative [...] Kendrick Cabrera MD documented in this encounter [facility] 08-21-2023 Note HNO ID: [id number] Author: DEL WU APRN.TRAVEL GUIDE Service: ? Author Type: Nurse Practitioner Type: [...] Breath. (Patient not taking: Reported on 04/23/2023) Rudgnmkrcqmrsfo-Ryqecbyij-FB (BROMFED DM) 2-30-10 mg/5 mL syrup Take 5-10 ml po q6h prn (Patient not taking: Reported on 03/17/2021) pseudoephedrine (SUDAFED) 30 mg tablet Take 1 tablet by mouth every 4 hours as needed. (Patient not taking: Reported on 03/17/2021) fluticasone (FLONASE) 50 mcg/actuation nasal spray Use 1 [place] in each nostril once daily. (Patient not [...] No pain with (more content not included)... [facility] 08-21-2023 History of Present illness Narrative [...] Breath. (Patient not taking: Reported on 04/23/2023) Ijwzuzfwjcxzqim-Twksjijoz-HH (BROMFED DM) 2-30-10 mg/5 mL syrup Take 5-10 ml po q6h prn (Patient not taking: Reported on 03/17/2021) pseudoephedrine (SUDAFED) 30 mg tablet Take 1 tablet by mouth every 4 hours as needed. (Patient not taking: Reported on 03/17/2021) fluticasone (FLONASE) 50 mcg/actuation nasal spray Use 1 [place] in each nostril once daily. (Patient not [...] of care. This note was generated using [employer] software. It may contain errors in wording, punctuation, or spelling. Del Wu APRN.ELO documented in this encounter [facility] 04-23-2023 Note HNO ID: [id number] Author: Marina Veronica APRN.LEO Service: ? Author Type: Nurse Practitioner Type: Progress Notes Filed: 04/23/2023 2:56 PM Note Text: This note was created using RF Arrays. Subjective Alma Delia Dow is a 37 [...] Relevant Medications cefdinir (OMNICEF) 300 mg capsule [facility] 04-23-2023 History of Present illness Narrative This note was created using RF Arrays. Subjective Alma Delia Dow is a 37 [...] 300 mg capsule documented in this encounter [facility] 2022 Note [facility] Pap Smear Specimen Adequacy 2022 11:30am Comment [...] 2021 4:28 PM documented in this encounter [facility] Evaluation note No assessment inform ation available [facility] Work Phone: Evaluation note Diagnosis Acute otitis media, right- Primary Unspecified otitis media [facility] Diagnosis Onset Date Resolution Status Fracture of distal end of left ulna acute Strain of left wrist acute Fracture of distal end of left ulna acute [facility] Work Phone: Evaluation note* Diagnosis Eustachian tube dysfunction, bilateral- Primary [facility] Diagnosis Sore throat- Primary Acute pharyngitis Acute cough Wheezing [facility] Acute pain of right shoulder Contusion of chest wall, unspecified laterality, initial encounter [facility] Additional Instructions Follow preprinted instructions from your surgeons office Implant Used?: Yes [facility] Work Phone: Reason for referral (narrative)* Diagnostic Procedure Only (Urgent) - Closed Specialty Diagnoses / Procedures Referred By Ricardo t Referred To Contact XR IMAGING Diagnoses Acute pain of right shoulder Contusion of chest wall, unspecified laterality, initial encounter Procedures XR RIBS/CHEST 3V AP RIB/OBLS/CXR RT X-RAY RIBS, CHEST 3+ VW Nalini Allen APRN.[employer]AV[employer] [address] [place] [address] [place] [address] Referral ID Status Reason Start Date Expiration [...] SHOULDER COMPLET MIN 2 VIEWS Nalini Allen APRN.[employer] [address] [place] [phone] [place] [address] Referral ID Status Reason Start Date Expiration Date V isits Requested Visits Authorized Closed Auto-Generate d Referral 01/28/2021 02/27/2022 1 1 [facility] for visit Narrative* Diagnostic Procedure Only (Urgent) - Closed Specialty Diagnoses / Procedures Referred By Contac t Referred To Contact XR IMAGING Diagnoses Acute pain of right shoulder Contusion of chest wall, unspecified laterality, initial encounter Procedures XR RIBS/CHEST 3V AP RIB/OBLS/CXR RT X-RAY RIBS, CHEST 3+ VW Nalini Allen APRN.TRAVEL GUIDE [address] [place] [phone] [place] [id number] Referral ID Status Reason Start Date Expiration Date V isits Requested Visits Authorized [id number] Closed Auto-Generate d Referral 01/28/2021 02/27/2022 1 1 [facility] Chief Complaint and Reason for Visit [...] Will No February 03 11:56am Power of Cribber No February 03, 2022 11:56am Advance Directive Response Recorded Date/ Time Living Will No February 03 10:56am Power of Cribber No February 03, 2022 10:56am Summary Purpose [...] MD Attending Provider, Referring Prov ider Active 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 [employer] Relationship Specialty Start Date End Date Kyung Potts MD [address] [place] [address] PCP - General Internal Medicine 09/26/18 01/16/22 [...] or prosecute any alcohol or drug abuse patient.[facility] the event this information is protected by the Federal Confidentiality of Alcohol and Drug Abuse Patient Records regulations: The Federal rules restrict any use of the information to criminally investigate or prosecute any alcohol or drug abuse patient.[facility] the event this information is protected by the Federal Confidentiality of Alcohol and Drug Abuse Patient Records regulations: The Federal rules restrict any use of the information to criminally investigate or prosecute any alcohol or drug abuse patient.[facility] the event this information is protected by the Federal Confidentiality of Alcohol and Drug Abuse Patient Records regulations: The Federal rules restrict any use of the information to criminally investigate or prosecute any alcohol or drug abuse patient.[facility] Reason for Visit (unrecogniz ed section and content) Reason Comments Ear Pain Right ear x4 days Reason Comments Ear Pain Bilateral ear pain x 4 days Reason Comments Sore Throat ST x 1 week INFORMATION SOURCE (unrecogn ized section and content) DATE CREATED AUTHOR 01/17/2024 [facility] DATE CREATED AUTHOR AUTHOR'S FLOYD ATION 11/07/2024 [facility] FOR RECORDS PERTAINING TO PATIENTS WHO [...] BE BASED ON THE PRIMARY CLINICAL RECORDS. [employer] [facility]. provides no warranty or guarantee of the accuracy or completeness of information in this document.
[2024-11-08] VITALS (10 sets, daily range): BP systolic 95–117; BP diastolic 58–84; PULSE 66–88; RESP 16–18; TEMP 36.2–36.7; O2SAT 96–100
--- NOTE | 2024-11-08 | FLU_PTH ---
PATIENT: ALMA DELIA HAYNES LOC: [facility] U#:[id number] AGE/SX: 38/F ROOM: [facility] RE11/06/[address]: Dr. Pb Adams DO : 1985 BED: 1 DIS: 11/09/2024 SPEC #: [id number] RECD: 11/08/24 11:38 STATUS: SOUT REQ #: [id number] AARON: 11/08/24 00:[address]: Rangel Cardona DEPT: CYTOLOGY RECD BY: Salo Alegria ENTERED: 11/08/24 13:42 SP TYPE: Fluid OTHR DR: MD Dr. Rick Duggan MD Dr. Bruce Arthur, MD Dr. Derek Brown, DO Dr. David P Myers, MD Dr. Eric Jopperi, DO Dr. Edward Matheis, MD Dr. Gautam Baskaran, MD Dr. Yordanos Habtegebriel, MD Dr. Hemant Dand, MD Dr. Jose Ochoa, MD Dr. Justin Wong, MD Dr. Kimber Foust, MD Dr. Kathryn Lee, DO Dr. Lamia Aljundi, MD Dr. Marisa Magana, MD Dr. Pritam Ghosh, MD Dr. Pavan Irukulla, MD Dr. Robert Leininger, MD Dr. Saad Farooqi, MD Dr. Sukhdeep Dhesi, DO Dr. Sujoy Gill, MD Dr. Soleyah Groves, MD Dr. Timothy Fernstrom, DO Dr. Vikram Anand, MD Dr. William Haden, MD No Primary Care Phys Tissues: A - Bronchus of right middle lobe Procedures: Special Stain Group II Special Stain Group I Surgery Specimen Level IV AFB Stain (control) GMS Stain (control) Cytospin Fluid Comments: @ Ordering doctor for SSII edited from to @ by AMY at 11/08/24 1345 @ Ordering doctor for SUIV edited from to @ by AMY at 11/08/24 1345 @ Ordering doctor for CYSPIN edited from to @ by AMY at 11/08/24 1345 @ Submitting doctor edited from to @ by AMY at 11/08/24 1345 HEADER OPERATION: Bronchoscopy PRE-OP DIAGNOSIS: Abnormal CT TISSUE SUBMITTED: A- Bronchial fluid for cytology DIAGNOSIS CYTOLOGY A. Right middle lobe, bronchial fluid (cytospin, cellblock), bronchoscopy: * No malignant cells identified. * GMS stain is negative for fungal organisms and pneumocystis. * AFB stain is negative for acid fast bacilli. CYTOLOGY STUDY Slides are reviewed. CYTOLOGY GROSS A. Received is 10 ml of thick-cloudy fluid labeled with the patient's name and and designated per the requisition as Right middle lobe. Submitted for cytology and cell block preparation. 11/08/2024 CPT: 57967 ,10660,46294n2
[2024-11-08] MEDS: LORazepam 1 MG Tablet PO ×3 (03:52→22:30)
[2024-11-08] MEDS: Famotidine 20 MG Tablet PO (04:09)
[2024-11-08 05:16] LABS: Absolute Lymphocyte Count 0.29 X10^3/uL (0.83-4.51); Absolute Neutrophil Count 4.7 X10^3/uL (2.0-7.7); Hematocrit 24.6 % (37-47); Hemoglobin 8.2 g/dL (12.0-15.0); Lymphocyte # 0.29 X10^3/ul (0.83-4.51); Lymphocyte % 5.5 % (19-41); Mean Corp Hgb Conc 33.3 g/dL (32-36); Mean Corpuscular Hgb 30.1 pg (27.0-32.0); Mean Corpuscular Volume 90.4 fL (81-99); Mean Platelet Vol. 10.7 fl (6.2-12.0); Monocyte# 0.21 X10^3/uL; NRBC Flagged by Analyzer 0 % (0-5); Neutrophil # 4.73 X10^3/uL (2.7-7.7); Neutrophil % 89.7 % (47-70); POSITIVE DIFFERENTIAL YES; Platelet Count 125 K/mm3 (150-450); RBC Distribution Width CV 15.7 % (11.6-14.6); Red Blood Count 2.72 M/mm3 (4.2-5.4); White Blood Count 5.3 K/mm3 (4.4-11.0)
[2024-11-08] MEDS: CLARIFY ORDER NOTE (05:39)
[2024-11-08 05:59] LABS: Anion Gap 12 (5-15); BUN 15 mg/dL (4-19); BUN/Creat Ratio 22.5 RATIO (10-20); Calcium,Total 9.1 mg/dL (7.6-11.0); Carbon Dioxide 16.8 mmol/L (21.0-32.0); Chloride 109 mmol/L (98-108); Creatinine, Serum 0.66 mg/dL (0.70-1.20); EST Glomerular Filtration Rate 115 (>60); Estimated Creatinine Clearance 90.53 ml/min (50-250); Glucose 163 mg/dL (70-99); Potassium 3.7 mmol/L (3.3-5.1); Sodium Level 138 mmol/L (133-145)
[2024-11-08] MEDS: Cefepime HCl 2 GM in 0.9% Normal Saline (100mL MB+) 100 ML IV ×3 (06:01→21:08)
[2024-11-08] MEDS: Clindamycin 600 MG/50 ML BAG 100 MG IV ×3 (06:01→21:08)
[2024-11-08] MEDS: 0.9% Saline Lock 10 ML Syringe IV ×5 (06:03→22:30)
[2024-11-08 06:07] LABS: Toxoplasma Gondii IgG < 3.0 IU/mL (0.0-7.1); Toxoplasma Gondii IgM < 3.0 AU/mL (0.0-7.9)
[2024-11-08 06:47] LABS: Cholesterol 177 mg/dL (<=200); High Density Lipoprotein 22 mg/dL; Low Density Lipoprotein Calc. 99 mg/dL; Triglycerides 279 mg/dL; Very Low Density Lipoprotein 56 mg/dL (5-40); cholesterol:hdl ratio screen 7.94
[2024-11-08] MEDS: Ondansetron 4 MG/2 ML Vial IV ×2 (08:49→21:02)
[2024-11-08] MEDS: Vancomycin Trough/Random Due 1 LAB MC ×2 (08:52→12:41)
--- NOTE | 2024-11-08 08:57 | PCM.PN.HOSP ---
Reason for Visit Reason for Visit: Diagnoses Anemia, unspecified (11/06/24) Hypokalemia (11/06/24) Hypotension, unspecified (11/06/24) Interstitial pulmonary disease, unspecified (11/06/24) Hypoxemia (11/06/24) Asymptomatic human immunodeficiency virus [HIV] infection status (11/06/24) Subjective Subjective Breathing better today. Objective Data Objective Data Vital Signs: Vital Signs Temp Pulse Resp BP Pulse Ox O2 Del Method O2 Flow Rate 36.8 C 87 18 116/78 99 Nasal Cannula 1 11/07/24 15:07 11/07/24 15:07 11/07/24 15:07 11/07/24 15:07 11/07/24 15:07 11/07/24 18:00 11/07/24 18:00 Oxygen Flow Rate (L/min) 1 Oxygen Delivery Method Nasal Cannula Weight: 55.8 kg Body Mass Index (BMI) 24.0 Intake & Output: Intake and Output for Last 24 Hours 11/06/24 11/07/24 11/08/24 23:59 23:59 23:59 Intake Total 2150 / 2150 3660 / 3660 150 / 150 Output Total 500 / 500 Balance 1650 / 1650 3660 / 3660 150 / 150 Medical Nutrition Assessment Dietitian: Malnutrition Criteria Met Start: 11/07/24 10:31 Freq: Status: Active Protocol: Document 11/07/24 11:07 SB (Rec: 11/07/24 11:08 SB [id number]) Nutrition Malnutrition Evidence of Yes Malnutrition Exists Malnutrition (severe Chronic ): Evidenced By Suboptimal Energy Intake (Severe),Weight Loss (Severe) Clinical Problem Chronic Disease or Condition Related Malnutrition Etiology severe related to inadequate oral intake Signs/Symptoms as evidenced by PO meeting <75% of estimated nutrition needs x 4 months and 18% weight loss x 6 months. Status Active Problem Recommendation Dietitian Continue regular diet. Recommendations/ Pt denied ONS at this time, will ask again at time of Changes follow up if PO is still poor. Will order orange/red Gatorade per pt request. Will monitor weight trends. Lab / Micro Data 11/08/24 04:19 11/08/24 04:19 Labs: Laboratory Results - last 24 hr 11/07/24 10:30: Lactate Dehydrogenase 599 H, Syphilis Total Ab Nonreactive, Chlamydia DNA (JULISSA) Cancelled, Hep Bs Antigen Nonreactive, Hep Bs Antibody Nonreactive, Hepatitis C Antibody Nonreactive, N.gonorrhoeae DNA (JULISSA) Cancelled, Toxoplasma IgG Ab < 3.0, Toxoplasma gondii IgM < 3.0, Toxoplasma Comment Comment 11/08/24 04:19: WBC 5.3, RBC 2.72 L, Hgb 8.2 L, Hct 24.6 L, MCV 90.4, MCH 30.1, MCHC 33.3, RDW Std Deviation 52.0 H, RDW Coeff of Deb 15.7 H, Plt Count 125 L, MPV 10.7, Immature Gran % (Auto) 0.800, Neut % (Auto) 89.7 H, Lymph % (Auto) 5.5 L, [place] % (Auto) 4.0, Eos % (Auto) 0.0, Baso % (Auto) 0.0, Absolute Neuts (auto) 4.7, Absolute Lymphs (auto) 0.29 L, Nucleated RBC % 0, Sodium 138, Potassium 3.7, Chloride 109 H, Carbon Dioxide 16.8 L, Anion Gap 12, BUN 15, Creatinine 0.66 L, Estim Creat Clear Calc 90.53, Est GFR (MDRD) Non-Af 115, BUN/Creatinine Ratio 22.5 H, Glucose 163 H, Calcium 9.1, Triglycerides 279 H, Cholesterol 177, LDL Cholesterol, Calc 99, VLDL Cholesterol 56 H, HDL Cholesterol 22 L, Cholesterol/HDL Ratio 7.94 Micro: Microbiology 11/07/24 Unknown Urine, Clean Catch Chlamydia/Neisseria (PCR) - Final 11/07/24 11:21 Nasal Secretion MRSA (PCR) - Final 11/06/24 17:54 Mucosa - Nasopharyngeal Respiratory Panel (PCR) - Final 11/06/24 Unknown Urine, Random Legionella Antigen - Final 11/06/24 Unknown Urine, Random Streptococcus pneumoniae Antigen (M - Final 11/06/24 11:49 Mucosa - Nose SARS-CoV-2, Influenza & RSV (PCR) - Final Physical Exam Const alert and no apparent distress HEENT head/scalp atraumatic and moist oral mucous membranes Resp normal respiratory effort, no retractions, no use of accessory muscles and clear to auscultation bilaterally Cardio regular rate, regular rhythm, S1 normal heart sound and S2 normal heart sound GI normal to inspection, nondistended, normoactive bowel sounds, soft to palpation, non-tender and non-distended Extremity normal to inspection and full ROM Assessment & Plan Assessment/Plan (1) Bilateral interstitial pneumonia: PLAN: Diffuse bilaterally. Unclear type. Given the +HIV test, concern for Pneumocystis jiroveci infection. On vancomycin, clindamycin, fluconazole. Methylpred Methylpred, BDs, respiratory panel Blood culture pending autoimmune work ordered DW Dr. Cardona, plan for endoscopy. (2) HIV (human immunodeficiency virus infection): PLAN: Concern for active infection, cannot rule out the possibility of AIDS at this time. ID consulted. CD4, viral load pending PLAN: Plan VTE prophylaxis: LMWH. Charges/Coding Visit Charges Inpatient E&M: 48773 Subs Hosp L2
--- NOTE | 2024-11-08 09:42 | PN.CC_ITS ---
Assessment & Plan Assessment/Plan (1) HIV (human immunodeficiency virus infection): (2) Hypoxia: PLAN: Plan RECOMMENDATIONS: 1. Supplemental oxygen, if needed, to maintain saturations at or above 90%. 2. Continue empiric antimicrobials and steroids, per ID recommendations. 3. Given positive HIV screen, will proceed with bronchoscopy later this morning, given concern for opportunistic infections. IMPRESSIONS: 1. Shortness of breath and hypoxemia Initially felt to be multifocal pneumonia. However, the patient subsequently screened positive for HIV. This would raise the concern for an opportunistic infection. Accordingly, antimicrobial therapy will be deferred to infectious diseases. Will plan to proceed with bronchoscopy with BAL later this morning. Continue supplemental oxygen, if needed, to maintain saturations at or above 90%. Will send BAL for AFB, fungal and bacterial cultures along with PCP stain. 2. Chronic tobacco dependency Complicates care, management, recovery and prognosis. Smoking cessation is advisable. This note was generated with [employer] dictation software. It may contain incorrect words, spelling, and punctuation that were not noted in checking the note before signing. Subjective Subjective The patient was seen and examined at the bedside this morning. Events from the last 24 hours have been reviewed. The patient is clinically stable with no overnight events reported. White blood cell count remains normal. Hemoglobin and platelet count are stable. Creatinine is within normal limits. There are plans to proceed with bronchoscopy with BAL later this morning. Objective Data Objective Data The patient's most recent lab work, culture data and imaging studies have all been personally reviewed. Vital Signs: Vital Signs Temp Pulse Resp BP Pulse Ox O2 Del Method O2 Flow Rate 98.2 F 87 18 116/78 99 Nasal Cannula 1 11/07/24 15:07 11/07/24 15:07 11/07/24 15:11/07/24 15:07 11/07/24 15:07 11/07/24 18:00 11/07/24 18:00 Oxygen Flow Rate (L/min) 1 Oxygen Delivery Method Nasal Cannula Weight: 123 lb 0.287 oz Body Mass Index (BMI) 24.0 Intake & Output: Intake and Output for Last 24 Hours 11/06/24 11/07/24 11/08/24 23:59 23:59 23:59 Intake Total 2150 / 2150 3660 / 3660 150 / 150 Output Total 500 / 500 Balance 1650 / 1650 3660 / 3660 150 / 150 Medical Nutrition Assessment Dietitian: Malnutrition Criteria Met Start: 11/07/24 10:31 Freq: Status: Active Protocol: Document 11/07/24 11:07 SB (Rec: 11/07/24 11:08 SB [id number]) Nutrition Malnutrition Evidence of Yes Malnutrition Exists Malnutrition (severe Chronic ): Evidenced By Suboptimal Energy Intake (Severe),Weight Loss (Severe) Clinical Problem Chronic Disease or Condition Related Malnutrition Etiology severe related to inadequate oral intake Signs/Symptoms as evidenced by PO meeting <75% of estimated nutrition needs x 4 months and 18% weight loss x 6 months. Status Active Problem Recommendation Dietitian Continue regular diet. Recommendations/ Pt denied ONS at this time, will ask again at time of Changes follow up if PO is still poor. Will order orange/red Gatorade per pt request. Will monitor weight trends. Lab / Micro Data Attestation: I reviewed the patient's lab results. 11/08/24 04:19 11/08/24 04:19 Labs: Laboratory Results - last 24 hr 11/07/24 10:30: Lactate Dehydrogenase 599 H, Syphilis Total Ab Nonreactive, Chlamydia DNA (JULISSA) Cancelled, Hep Bs Antigen Nonreactive, Hep Bs Antibody Nonreactive, Hepatitis C Antibody Nonreactive, N.gonorrhoeae DNA (JULISSA) Cancelled, Toxoplasma IgG Ab < 3.0, Toxoplasma gondii IgM < 3.0, Toxoplasma Comment Comment 11/08/24 04:19: WBC 5.3, RBC 2.72 L, Hgb 8.2 L, Hct 24.6 L, MCV 90.4, MCH 30.1, MCHC 33.3, RDW Std Deviation 52.0 H, RDW Coeff of Edb 15.7 H, Plt Count 125 L, MPV 10.7, Immature Gran % (Auto) 0.800, Neut % (Auto) 89.7 H, Lymph % (Auto) 5.5 L, [place] % (Auto) 4.0, Eos % (Auto) 0.0, Baso % (Auto) 0.0, Absolute Neuts (auto) 4.7, Absolute Lymphs (auto) 0.29 L, Nucleated RBC % 0, Sodium 138, Potassium 3.7, Chloride 109 H, Carbon Dioxide 16.8 L, Anion Gap 12, BUN 15, Creatinine 0.66 L, Estim Creat Clear Calc 90.53, Est GFR (MDRD) Non-Af 115, BUN/Creatinine Ratio 22.5 H, Glucose 163 H, Calcium 9.1, Triglycerides 279 H, Cholesterol 177, LDL Cholesterol, Calc 99, VLDL Cholesterol 56 H, HDL Cholesterol 22 L, Cholesterol/HDL Ratio 7.94 Micro: Microbiology 11/07/24 Unknown Urine, Clean Catch Chlamydia/Neisseria (PCR) - Final 11/07/24 11:21 Nasal Secretion MRSA (PCR) - Final 11/06/24 17:54 Mucosa - Nasopharyngeal Respiratory Panel (PCR) - Final 11/06/24 Unknown Urine, Random Legionella Antigen - Final 11/06/24 Unknown Urine, Random Streptococcus pneumoniae Antigen (M - Final 11/06/24 11:49 Mucosa - Nose SARS-CoV-2, Influenza & RSV (PCR) - Final Physical Exam Const alert, oriented x3 and no apparent distress General Appearance: cooperative HEENT normocephalic, head/scalp atraumatic and moist oral mucous membranes Eyes PERRL, EOMs intact bilaterally and conjunctivae normal Neck supple General: trachea midline Chest inspection of chest normal Resp normal respiratory effort Auscultation: rales Cardio regular rate and regular rhythm GI normal to inspection, nondistended, normoactive bowel sounds Extremity no clubbing, cyanosis or edema Skin no rashes or lesions noted Neuro CN's II-XII intact bilaterally, moves all extremities and no focal motor deficits Psych cooperative and affect normal Charges/Coding Visit Charges Inpatient E&M: 95448 Subs Hosp L2
--- NOTE | 2024-11-08 09:53 | PCM.RX.CS ---
Consult Antibiotic Management Pharmacy has been consulted to manage selected antibiotic: Vancomycin Type of Intervention Type of Consult: Follow-up Suspected Infection Suspected Infection: Pneumonia Prior Doses of Antibiotics Prior Doses of Antibiotics Received/Current Regimen: Vancomycin 750mg every 12 hours given 11/07/24 @ 1054,11/07/24 @ 2218 Labs Labs: Sodium 138 mmol/L (133-145) 11/08/24 04:19 Potassium 3.7 mmol/L (3.3-5.1) 11/08/24 04:19 Chloride 109 mmol/L (98-108) H 11/08/24 04:19 Carbon Dioxide 16.8 mmol/L (21.0-32.0) L 11/08/24 04:19 Anion Gap 12 (5-15) 11/08/24 04:19 BUN 15 mg/dL (4-19) 11/08/24 04:19 Creatinine 0.66 mg/dL (0.70-1.20) L 11/08/24 04:19 Est GFR (MDRD) Non-Af 115 (>60) 11/08/24 04:19 BUN/Creatinine Ratio 22.5 RATIO (10-20) H 11/08/24 04:19 Glucose 163 mg/dL (70-99) H 11/08/24 04:19 Vancomycin Trough 13.0 ug/mL (5.0-15.0) 11/08/24 09:10 Microbiology Microbiology: Microbiology 11/07/24 Unknown Urine, Clean Catch Chlamydia/Neisseria (PCR) - Final 11/07/24 11:21 Nasal Secretion MRSA (PCR) - Final 11/06/24 17:54 Mucosa - Nasopharyngeal Respiratory Panel (PCR) - Final 11/06/24 Unknown Urine, Random Legionella Antigen - Final 11/06/24 Unknown Urine, Random Streptococcus pneumoniae Antigen (M - Final 11/06/24 11:49 Mucosa - Nose SARS-CoV-2, Influenza & RSV (PCR) - Final Dosing Weight Weight used for dosin kg Estimated Creatinine Clearance Estimated Creatinine Clearance: 91 Goal Trough Goal Trough: 15-20 mcg/mL Pharmacy Plan for Drug Dosing Pharmacy Plan for Drug Dosing: New dosage due to trough level of 13. Vancomycin 1000mg every 12 hours Pharmacy Service will continue to monitor and adjust dosing as required. Follow-Up Labs Follow-Up Labs: Trough: Vancomycin Date/Time Labs Ordered Labs to be done on [date and time ordered]: 11/09/24 @ 7929
--- NOTE | 2024-11-08 10:09 | EKG12_ITS ---
Test Reason : PRE OP Blood Pressure : */* mmHG Vent. Rate : 71 BPM Atrial Rate : 71 BPM P-R Int : 146 ms QRS Dur : 90 ms QT Int : 396 ms P-R-T Axes : 64 47 24 degrees QTcB Int : 430 ms Normal sinus rhythm with sinus arrhythmia Normal ECG No previous ECGs available Confirmed by Joseph Currie ([id number]), proposal editor ISABELA GAMBOA ([id number]) on 11/11/2024 9:14:09 AM Referred By: JOEL Confirmed By: Joseph Currie
--- NOTE | 2024-11-08 10:09 | PCM.PRE.AN2 ---
ASA Classification* ASA Classification ASA Classification: 3 Assessment & Plan Anesthesia* Anesthesia Assessment Anesthesia Assessment: Discussed sedation and/or anesthesia options, risks, benefits, and alternatives with patient/parents/legal guardian/POA. Questions invited. The patient/parents/legal guardian/POA seems to understand and agrees to proceed with anesthesia plan. Reviewed the physical assessment, medical history, allergy history and patient home medications list prior to surgery/procedure/anesthetic and documented any changes. Performed airway and anesthesia risk assessments. Anesthesia Type Anesthesia Type: MAC (hiv PRECAUTIONS) Anesthesia Focused Assessment* Temperature: 97.5 F Pulse Rate: 71 Blood Pressure: 117/84 Respiratory Rate: 16 Pulse Ox: 96 Oxygen Flow Rate (L/min): 1 Airway Assessment Mouth opens: >3 cm Mallampati Score: II Focused Labs Anesthesia Preop lab: CBC WBC 5.3 K/mm3 (4.4-11.0) 11/08/24 04:19 11/08/24 RBC 2.72 M/mm3 (4.2-5.4) L 11/08/24 04:19 11/08/24 Hgb 8.2 g/dL (12.0-15.0) L 11/08/24 04:19 11/08/24 Hct 24.6 % (37-47) L 11/08/24 04:19 11/08/24 Plt Count 125 K/mm3 (150-450) L 11/08/24 04:19 11/08/24 CHEMISTRY Potassium 3.7 mmol/L (3.3-5.1) 11/08/24 04:19 11/08/24 Sodium 138 mmol/L (133-145) 11/08/24 04:19 11/08/24 Magnesium 1.7 mg/dL (1.5-2.2) 11/07/24 04:55 11/07/24 Phosphorus 4.0 mg/dL (2.7-4.5) 11/07/24 04:55 11/07/24 BUN 15 mg/dL (4-19) 11/08/24 04:19 11/08/24 Creatinine 0.66 mg/dL (0.70-1.20) L 11/08/24 04:19 11/08/24 Glucose 163 mg/dL (70-99) H 11/08/24 04:19 11/08/24 TSH 0.34 uIU/mL (0.358-3.74) L 12/28/17 12:30 12/28/17 COAG PT 12.9 SECONDS (11.7-14.9) 12/31/18 14:35 12/31/18 Urine Test Negative Negative 11/06/24 23:59 11/06/24 Pre-Assessment Diagnosis/Proposed Procedure Planned Operative Procedure(s): Bronchoscopy with washings Anesthesia History Anesthesia History - perl developer: Anesthesia History - perl developer Hx Hospitalization No 07/03/23 08:44 Any Problems With Anesthesia No 07/03/23 08:44 Cholinesterase deficiency No 07/03/23 08:44 You/Your Family Experience No 07/03/23 08:44 fever (hyperthermia) with Relationship Recent Exposure to Contagious No 07/03/23 08:44 Disease Does patient have nerve No 07/03/23 08:44 stimulator Patient instructed to have device shut off --Does patient have Pacemaker or ICD? When Was Last Pacemaker Check QUESTION #4 FULL TEXT: You/Your Family Experience fever (hyperthermia) with Anesthesia Last Oral Intake Last Oral intake: Last Oral Intake NPO since Meds taken in AM with sips of water? Meds patient instructed to take am of surgery PONV PONV - perl developer: PONV - perl developer Female HX of Motion Sickness HX of N/V After Surgery Non-Smoker Duration of Surgery greater than 60 minutes Number of Risk Factors PONV Score Height & Weight Height & Weight: Anesthesia: Height & Weight Height 5 ft 11/07/24 10:17 Weight: 55.8 kg 11/07/24 10:17 Body Mass Index (BMI) 24.0 11/06/24 16:46 Respiratory Assessment Respiratory Assessment - perl developer: Respiratory Tract Infection Hx - perl developer Hx Respiratory Tract Infection No 07/03/23 08:44 STOP Sleep Apnea STOP Sleep Apnea - perl developer: STOP Sleep Apnea - perl developer Hx Hypertension No 11/06/24 16:46 Hx Sleep Apnea No 11/06/24 16:46 CPAP BIPAP Do you snore loudly (louder No 11/06/24 16:46 than talking or can be heard Do you often feel tired/ No 11/06/24 16:46 fatigued/ sleepy during daytime? Has anyone observed you stop No 11/06/24 16:46 breathing during sleep? STOP Results Negative 11/06/24 16:46 QUESTION #5 FULL TEXT : Do you snore loudly (louder than talking or can be heard through closed doors)? Tobacco Use History Tobacco Use History - perl developer: Tobacco Use History - perl developer Tobacco Use Smoking Status Current every day smoker 11/07/24 08:54 Hx Tobacco Use Yes 11/06/24 16:46 Years Smoking Packs Smoked per Day Smoking Cessation Date was within the last 15 years Hx Smoking Cessation Date Hx Smoking Cessation No 11/06/24 16:46 Counseling Hematologic Medial History Hematologic Hx - perl developer: Hematologic Medical Hx - supervisor press room Hx of Blood Transfusion No 11/06/24 16:46 Hx of Transfusion in last 3 No 11/06/24 16:46 Months Date of Last Transfusion (if within last 3 months) Ever experience any problems No 11/06/24 16:46 with transfusion(s)? Specify any problems Hx of Preganancy in last 3 No 11/06/24 16:46 Months Nurse Filling Out Transfusion RVIZZO 11/06/24 16:46 & Questions: Date: 11/06/24 11/06/24 16:46 Time: 17:09 11/06/24 16:46 Patient unable to answer at this time (ie. confused, unrespo /Reproduction History /Reproductive History - perl developer: /Reproductive Hx- perl developer Hx Now Gestational Age (in weeks): EDC: Hx Hx Para Hx Section SAB No 11/06/24 11:15 Active Medications Active Medications: Current Medications Generic Name Dose Route Start Last Admin Trade Name Freq PRN Reason Stop Dose Admin Acetaminophen 650 mg 11/06/24 16:42 11/07/24 18:19 Acetaminophen 325 Mg Tablet PO 650 mg Q6H PRN PRN Administration Pain 1-10 Or Fever>100.7 Albuterol Sulfate 2.5 mg 11/06/24 16:42 Albuterol 2.5 Mg/3 Ml Vial.Neb. INHALATION Q2H PRN PRN SOB &/OR WHEEZING Albuterol/Ipratropium 3 ml 11/07/24 23:03 Ipratropium/Albuterol Sulfate 3 Ml Ampul.Neb INHALATION Q4H PRN PRN SHORTNESS OF BREATH Enoxaparin Sodium 40 mg 11/07/24 10:00 11/07/24 10:55 Enoxaparin 40 Mg/0.4 Ml Syringe SC 40 mg DAILY SHANIA Administration Fluconazole 100 mg 11/08/24 10:00 Fluconazole 100 Mg Tablet PO DAILY SHANIA Guaifenesin 1,200 mg 11/06/24 22:00 11/07/24 20:57 Guaifenesin 1,200 Mg Tablet PO 1,200 mg BID SHANIA Administration Sodium Chloride 250 mls @ 15 mls/hr 11/06/24 17:03 IV .[id number] PRN Saline Flush Sodium Chloride 250 mls @ 15 mls/hr 11/06/24 17:03 IV .[id number] PRN Additional IVPB Infusion Vancomycin IV-PHARMACY TO DOSE 500 mls @ 250 mls/hr 11/06/24 20:03 1 each/ Sodium Chloride IV PRN PRN Rx to Dose Protocol Cefepime HCl 2 gm/ Sodium 100 mls @ 200 mls/hr 11/07/24 09:55 11/08/24 06:35 Chloride IV Infused Q8 SHANIA Infusion Clindamycin Phosphate 600 mg in 50 mls @ 100 mls/hr 11/07/24 14:00 11/08/24 06:35 Cleocin IV Infused Q8 SHANIA Infusion Vancomycin HCl 1,000 mg in 200 mls @ 200 mls/hr 11/08/24 10:30 Vancomycin IV Q12H SHANIA Ibuprofen 600 mg 11/06/24 21:10 11/07/24 19:58 Ibuprofen 600 Mg Tablet PO 600 mg Q6H PRN PRN Administration Pain 1-10 or Fever Lorazepam 1 mg 11/07/24 18:10 11/08/24 03:52 Lorazepam 1 Mg Tablet PO 1 mg Q8H PRN PRN Administration ANXIETY Methylprednisolone 40 mg 11/06/24 22:00 11/08/24 06:00 Methylprednisolone 40 Mg/Ml Vial IV 40 mg Q8 SHANIA Administration Nicotine 21 mg 11/07/24 10:00 11/07/24 10:55 Nicotine 21 Mg Patch TD 21 mg DAILY SHANIA Administration Non-Formulary Medication 30 mg 11/07/24 11:15 Primaquine PO DAILY SHANIA Nystatin 500,000 unit 11/06/24 22:00 11/07/24 21:11 Nystatin 500,000 Unit/5 Ml Udc PO 500,000 unit 4X/DAY SHANIA Administration Ondansetron HCl 4 mg 11/06/24 16:42 11/08/24 08:49 Ondansetron 4 Mg/2 Ml Vial IV 4 mg Q8H PRN PRN Administration NAUSEA/VOMITING Senna/Docusate Sodium 2 tablet 11/06/24 16:42 Senna/Docusate Sodium 1 Tablet PO BID PRN PRN Constipation Sodium Chloride 10 - 40 ml 11/06/24 17:03 11/08/24 08:49 0.9% Saline Lock 10 Ml Syringe IV 10 ml UD PRN Administration SALINE FLUSH Vancomycin Protocol 1 lab 11/08/24 08:30 11/08/24 08:52 Vancomycin Trough/Random Due 11/08/24 10:30 1 lab DAILY SHANIA Administration Vancomycin Protocol 1 lab 11/09/24 21:00 Vancomycin Trough/Random Due 11/09/24 23:00 DAILY SHANIA PFSH Medical History Anemia Migraine headache Gastric reflux Hoarseness Hx of sepsis Smoker Abnormal results of thyroid function studies Malaise and fatigue Unspecified voice and resonance disorder Hair loss Insomnia Home Medications ?Medication ?Instructions ?Recorded ?Last Taken ?Type NK 11/06/24 Unknown History Allergy/AdvReac Type Severity Reaction Status Date / Time sulfamethoxazole (From Allergy Low Verified 11/06/24 11:15 Bactrim) neutrophils trimethoprim (From Bactrim) Allergy Low Verified 11/06/24 11:15 neutrophils Family History Mother Cancer Aunt Thyroid disorder Grandfather CVA (cerebral vascular accident) Parkinsons Surgical History Hx of foot surgery History of oral surgery History of appendectomy History of tonsillectomy Social History household members: significant other current occupational status: employed Smoking Status: Current every day smoker tobacco type: cigarettes alcohol intake: current alcohol intake frequency: a few times a month substance use type: does not use what type of physical activity do you participate in: other Review of Systems (Anesthesia) ROS Narrative System reviewed and no additional complaints, except as documented.
[2024-11-08] MEDS: Lidocaine 2% (5ml sdv) 5 ML VIAL.MPF ×4 (11:09→18:30)
[2024-11-08] MEDS: Lidocaine Jelly 2% 20 ML Syringe (URO-JET) 1 APPLIC (11:10)
--- NOTE | 2024-11-08 11:14 | OP.BRONCH_ITS ---
Patient Name: Rhonda Dow Procedure Date: 11/08/2024 10:39 AM Date of : 1985 Age: 38 Procedure: Bronchoscopy Indications: HIV positive with bilateral infiltrates Providers: Rangel Cardona MD Medicines: See the Anesthesia note for documentation of the administered medications Complications: No immediate complications Procedure: Pre-Anesthesia Assessment: - A History and Physical has been performed. Patient meds and allergies have been reviewed. The risks and benefits of the procedure and the sedation options and risks were discussed with the patient. All questions were answered and informed consent was obtained. Patient identification and proposed procedure were verified prior to the procedure by the physician and the nurse in the procedure room. Mental Status Examination: alert and oriented. Airway Examination: normal oropharyngeal airway. Respiratory Examination: clear to auscultation. CV Examination: normal. ASA Grade Assessment: II - A patient with mild systemic disease. After reviewing the risks and benefits, the patient was deemed in satisfactory condition to undergo the procedure. The anesthesia plan was to use monitored anesthesia care (MAC). Immediately prior to administration of medications, the patient was re-assessed for adequacy to receive sedatives. The heart rate, respiratory rate, oxygen saturations, blood pressure, adequacy of pulmonary ventilation, and response to care were monitored throughout the procedure. The physical status of the patient was re-assessed after the procedure. After I obtained informed consent, the scope was passed under direct vision. Throughout the procedure, the patient's blood pressure, pulse, and oxygen saturations were monitored continuously. The bronchoscope was introduced through the mouth and advanced to the tracheobronchial tree. The procedure was accomplished without difficulty. The patient tolerated the procedure well. Findings: The oropharynx appears normal. The larynx appears normal. The vocal cords appear normal. The subglottic space is normal. The trachea is of normal caliber. The tawanda is sharp. The tracheobronchial tree was examined to at least the first subsegmental level. Bronchial mucosa and anatomy are normal; there are no endobronchial lesions, and no secretions. The bronchoscope was advanced until wedged at the desired location for bronchoalveolar lavage. BAL was performed in the right middle lobe of the lung and sent for cell count, bacterial culture, viral smears & culture, fungal & AFB analysis and cytology for immunocompromised host protocol. 60 mL of fluid were instilled. 20 mL were returned. The return was cloudy. There were no mucoid plugs in the return fluid. Impression: - HIV positive with bilateral infiltrates - The airway examination was normal. - Bronchoalveolar lavage was performed. Recommendation: - Await BAL results. Procedure Code(s): --- Professional --- 68409, Bronchoscopy, rigid or flexible, including fluoroscopic guidance, when performed; with bronchial alveolar lavage Diagnosis Code(s): --- Professional --- B20, Human immunodeficiency virus [HIV] disease R91.8, Other nonspecific abnormal finding of lung field CPT copyright 2021 [employer]. All rights reserved. The codes documented in this report are preliminary and upon software support technician review may be revised to meet current compliance requirements. DO Rangel Cantrell MD 11/08/2024 11:13:51 AM This report has been signed electronically. Number of Addenda: 0 Note Initiated On: 11/08/2024 10:39 AM
--- NOTE | 2024-11-08 11:17 | PCM.POST.ANE ---
Anesthesia: Postop Eval I Current Vital Signs Temperature: 97.1 F Pulse Rate: 66 Blood Pressure: 104/73 Respiratory Rate: 16 Pulse Ox: 100 Oxygen Delivery Method: Non-Rebreather Oxygen Flow Rate (L/min): 10 Assessment Airway patent: No Spontaneous unlabored respirations: No Mental status: Asleep nausea: No Vomiting: No Anesthesia Complication: No Fluid Hydration Crystalloid volume administer (ml): 500 Total IV fluid infused: 500 Progress Note Anesthesia document: Postop Eval 1 completed: Yes
[2024-11-08 11:43] LABS: Cytology, Body Fluid / CSF SEE PATHOLOGY REPORT
[2024-11-08] MEDS: NYSTATIN 500,000 UNIT/5 ML UDC 500000 UNIT PO ×2 (11:54→14:33)
[2024-11-08] MEDS: Fluconazole 100 MG Tablet PO (11:54)
--- NOTE | 2024-11-08 12:17 | POSTOPAN2_ITS ---
Anesthesia Postop Eval I Sum Postop Eval Completion status Anesthesia document: Postop Eval 1 completed: Yes Anesthesia Postop Eval I Summary Anesthesia Postop Eval I Summary: Anesthesia Postop Eval I: Assessment Summary Airway patent No 11/08/24 11:18 DIRECTOR SERVICE.SOBR Spontaneous unlabored No 11/08/24 11:18 DIRECTOR SERVICE.SOBR respirations Mental status Asleep 11/08/24 11:18 DIRECTOR SERVICE.SOBR nausea No 11/08/24 11:18 DIRECTOR SERVICE.SOBR Vomiting No 11/08/24 11:18 DIRECTOR SERVICE.SOBR Anesthesia Postop Eval I: Fluid Summary Crystalloid volume administer 500 11/08/24 11:18 DIRECTOR SERVICE.SOBR (ml) Colloids volume administered ( ml) Blood Product volume administered (ml) Total IV fluid infused 500 11/08/24 11:18 DIRECTOR SERVICE.SOBR Anesthesia Postop Eval I: Summary Notes Anesthesia Complication No 11/08/24 11:18 DIRECTOR SERVICE.SOBR Anesthesia Complication Comment: Post-operative progress note Anesthesia: Postop Eval II Evaluation Mental status: Awake Pain Level: 1 nausea: No Vomiting: No
--- NOTE | 2024-11-08 12:17 | PCM.POSTANE2 ---
Anesthesia Postop Eval I Sum Postop Eval Completion status Anesthesia document: Postop Eval 1 completed: Yes Anesthesia Postop Eval I Summary Anesthesia Postop Eval I Summary: Anesthesia Postop Eval I: Assessment Summary Airway patent No 11/08/24 11:18 BUSINESS UNIT DIRECTOR.SOBR Spontaneous unlabored No 11/08/24 11:18 BUSINESS UNIT DIRECTOR.SOBR respirations Mental status Asleep 11/08/24 11:18 BUSINESS UNIT DIRECTOR.SOBR nausea No 11/08/24 11:18 BUSINESS UNIT DIRECTOR.SOBR Vomiting No 11/08/24 11:18 BUSINESS UNIT DIRECTOR.SOBR Anesthesia Postop Eval I: Fluid Summary Crystalloid volume administer 500 11/08/24 11:18 BUSINESS UNIT DIRECTOR.SOBR (ml) Colloids volume administered ( ml) Blood Product volume administered (ml) Total IV fluid infused 500 11/08/24 11:18 BUSINESS UNIT DIRECTOR.SOBR Anesthesia Postop Eval I: Summary Notes Anesthesia Complication No 11/08/24 11:18 BUSINESS UNIT DIRECTOR.SOBR Anesthesia Complication Comment: Post-operative progress note Anesthesia: Postop Eval II Evaluation Mental status: Awake Pain Level: 1 nausea: No Vomiting: No
[2024-11-08 12:20] LABS: Appearance/Body Fluid CLOUDY; Color/Body Fluid COLORLESS; Source- Body Fluid BRONCHIAL LAVAGE
[2024-11-08 12:25] LABS: Red Cell Count/Body Fluid 130 /mm3; White Blood Count/Body Fluid 670 /mm3
[2024-11-08] MEDS: Vancomycin IV 1,000 MG/200 ML BAG 200 MG IV ×2 (12:41→22:30)
[2024-11-08] MEDS: Enoxaparin 40 MG/0.4 ML Syringe SC (12:41)
--- NOTE | 2024-11-08 13:00 | CASEMGMT ---
CHAS STRAUSS Assessment Face to Face with patient for initial transition planning/care coordination assessment. CHAS STRAUSS introduced self and role at [facility], pt voices understanding. Pt is A&Ox4 and is resting comfortably in bed and is calm. Care providers, pharmacy, and demographics verified. Admitting dx: Hypoxia, CAP LACE Strata: 1 PCP: No PCP. Provider list given and encouraged to get established Specialists: Denies Preferred Pharmacy: [facility] Insurance: [employer] Prescription Benefit: Yes LNOK: Lili (Mom), Ilan (Dad) Living Arrangements: Pt lives with her 3 sons (ages 12, 16, and 18) in a single story home ADLs/IADLs: Indep Transportation: Self, family. Denies concerns DME: Nebulizer. Denies further uses or needs at this time HHC/SNF: Denies hx or needs Pt?s goal: Home Plan: home, anticipate no additional needs. Pt to get established with a PCP for follow up care. Pt states that she smokes around 6 cigarettes per day but denies cessation resources. Pt denies further needs at this time. Report given to GRID OPERATOR CM. Maximino Ding RN, CM
[2024-11-08 13:51] LABS: Lymphocytes 8 %; Neutrophil (Segs) 84 %; Other Cell Type/BF 8 %
[2024-11-08] MEDS: PRIMAQUINE PHOSPHATE 26.3 MG TABLET 52.6 MG PO (15:41)
--- NOTE | 2024-11-08 15:55 | PCM.PN.ID ---
Physical Exam Narrative Bronch done today, feeling better, sweats/fever/breathing improved. No n/v/d. Feeling upset and frustrated. Wants to go home. Const alert and no apparent distress General Appearance: cooperative Resp normal air movement and clear to auscultation bilaterally Cardio regular rate and regular rhythm GI soft to palpation, non-tender and non-distended Extremity General Extremity: Negative for edema Skin no rashes or lesions noted ID ID: Route of nutrition/ use of supplements: [] Nutritional Intake: [] IV Site: [] Hernandez Catheter: [] Assessment & Plan Assessment/Plan (1) Bilateral interstitial pneumonia: (2) HIV (human immunodeficiency virus infection): PLAN: HIV prelim (+) with hypoxia and several months of dyspnea, dry cough, fatigue, weight loss. CT shows bilat interstitial infiltrates. Concern for OI. Will test for ebv, cmv, histo, crypto, toxo. Uags neg. Resp pcr panel neg. D/w pulm, bronch done today; would send for PJP staining, AFB, fungal, and bacterial cultures. High concern for PJP, has elevated LDH. ABG done. On solumedrol. Has h/o bactrim reaction (ANDREA and bone marrow suppression), so 6/ started clinda and primaquine. Cover with vanc/cefepime for now. For HIV, counseled her re: risk factors for HIV spread, natural history of illness, and role of treatment. Checking viral load, genotype, CD4, STI screen, TB IGRA, lipid panel, and hepatitis screen. Mild transaminitis here. She does not want family to know diagnosis. For reported thrush, will do 10 days of fluconazole. Plan for discharge will be cefdinir for CAP coverage, clinda and primaquine for PJP coverage, fluconazole for thrush, and biktarvy for empiric HIV treatment. Gave her the # for [facility] and counseled her re: potential side effects and importance of compliance with hiv therapy. Will follow, thank you, d/w Dr. Adams and Dr. Cardona. ID followup in 1-2 weeks.
[2024-11-08] MEDS: Epinephrine (1 mg/ml) 1 MG/ML VIAL (18:29)
[2024-11-08] MEDS: Ibuprofen 600 MG Tablet PO (20:16)
[2024-11-09 03:15] VITALS: BP 101/67; PULSE 77; RESP 16; TEMP 36.6; O2SAT 99
[2024-11-09] MEDS: 0.9% Saline Lock 10 ML Syringe IV (06:02)
[2024-11-09] MEDS: Cefepime HCl 2 GM in 0.9% Normal Saline (100mL MB+) 100 ML IV (06:02)
[2024-11-09] MEDS: Clindamycin 600 MG/50 ML BAG 100 MG IV (06:02)
[2024-11-09 08:30] VITALS: BP 122/94; PULSE 92; RESP 17; TEMP 36.6; O2SAT 99
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
--- NOTE | 2024-11-09 09:19 | PCM.PN.HOSP ---
Reason for Visit Reason for Visit: Diagnoses Anemia, unspecified (11/06/24) Hypokalemia (11/06/24) Hypotension, unspecified (11/06/24) Interstitial pulmonary disease, unspecified (11/06/24) Hypoxemia (11/06/24) Asymptomatic human immunodeficiency virus [HIV] infection status (11/06/24) Subjective Subjective Feeling well. Breathing well. Objective Data Objective Data Vital Signs: Vital Signs Temp Pulse Resp BP Pulse Ox O2 Del Method O2 Flow Rate 36.6 C 92 17 122/94 H 99 Room Air 10 11/09/24 08:30 11/09/24 08:30 11/09/24 08:30 11/09/24 08:30 11/09/24 08:30 11/09/24 08:33 11/08/24 11:18 Oxygen Flow Rate (L/min) 10 Oxygen Delivery Method Room Air Weight: 55.8 kg Body Mass Index (BMI) 24.0 Intake & Output: Intake and Output for Last 24 Hours 11/07/24 11/08/24 11/09/24 23:59 23:59 23:59 Intake Total 3660 / 3860 1880 / 2880 1150 / 1150 Balance 3660 / 3860 1880 / 2880 1150 / 1150 Medical Nutrition Assessment Dietitian: Malnutrition Criteria Met Start: 11/07/24 10:31 Freq: Status: Active Protocol: Document 11/07/24 11:07 SB (Rec: 11/07/24 11:08 SB [id number]) Nutrition Malnutrition Evidence of Yes Malnutrition Exists Malnutrition (severe Chronic ): Evidenced By Suboptimal Energy Intake (Severe),Weight Loss (Severe) Clinical Problem Chronic Disease or Condition Related Malnutrition Etiology severe related to inadequate oral intake Signs/Symptoms as evidenced by PO meeting <75% of estimated nutrition needs x 4 months and 18% weight loss x 6 months. Status Active Problem Recommendation Dietitian Continue regular diet. Recommendations/ Pt denied ONS at this time, will ask again at time of Changes follow up if PO is still poor. Will order orange/red Gatorade per pt request. Will monitor weight trends. Lab / Micro Data 11/08/24 04:19 11/08/24 04:19 Labs: Laboratory Results - last 24 hr 11/07/24 15:14: Miscellaneous Test 2 Cancelled 11/08/24 09:10: Vancomycin Trough 13.0 11/08/24 11:37: Fluid Source BRONCHIAL LAVAGE, Fluid Color COLORLESS, Fluid Appearance CLOUDY, Fluid WBC 670, Fluid RBC 130, Fluid Tot Cell Count TNP, Fluid Neutrophils 84, Fluid Lymphocytes 8, Fluid Other Cells 8, Fl Pathologist Comment May follow, Fluid Comment 2 Not Reportable Micro: Microbiology 11/07/24 Unknown Urine, Clean Catch Chlamydia/Neisseria (PCR) - Final 11/07/24 11:21 Nasal Secretion MRSA (PCR) - Final 11/06/24 17:54 Mucosa - Nasopharyngeal Respiratory Panel (PCR) - Final 11/06/24 Unknown Urine, Random Legionella Antigen - Final 11/06/24 Unknown Urine, Random Streptococcus pneumoniae Antigen (M - Final 11/06/24 11:49 Mucosa - Nose SARS-CoV-2, Influenza & RSV (PCR) - Final Physical Exam Const alert and no apparent distress Constitutional Narrative: up in chair. no respiratory distress. Assessment & Plan Assessment/Plan (1) Bilateral interstitial pneumonia: PLAN: Diffuse bilaterally. Unclear type. Given the +HIV test, concern for Pneumocystis jiroveci infection. On vancomycin, clindamycin, fluconazole. Methylpred Methylpred, BDs, respiratory panel Blood culture pending autoimmune work ordered Endoscopy performed on 11/08 which was grossly normal DW Dr. Arellano on 11/08: ok for discharge on 11/09. Follow up with ID for results of the studies. Cefdinir for pneumonia. Fluconazole. Biktarvy. Primaquine (discussed w patient--not for malaria, but concern for PCP) (2) HIV (human immunodeficiency virus infection): PLAN: Concern for active infection, cannot rule out the possibility of AIDS at this time. ID consulted. CD4, viral load pending PLAN: Plan VTE prophylaxis: LMWH.
[2024-11-09] MEDS: Enoxaparin 40 MG/0.4 ML Syringe SC (10:02)
[2024-11-09] MEDS: Fluconazole 100 MG Tablet PO (10:02)
[2024-11-09] MEDS: LORazepam 1 MG Tablet PO (10:02)
[2024-11-09] MEDS: guaiFENesin 1,200 MG Tablet 1200 MG PO (10:02)
[2024-11-09] MEDS: Ondansetron 4 MG/2 ML Vial IV (10:02)
[2024-11-09] MEDS: PRIMAQUINE PHOSPHATE 26.3 MG TABLET 52.6 MG PO (10:02)
[2024-11-09] MEDS: Vancomycin IV 1,000 MG/200 ML BAG 200 MG IV (10:03)
[2024-11-09] MEDS: Acetaminophen 325 MG Tablet 650 MG PO (11:49)
--- NOTE | 2024-11-09 12:54 | PCM.DC.SUM ---
Providers Date of Admission: 11/06/24 Primary Care Physician: Ewa Primary Care Phys Consultations 11/06/24 16:42 Consult: Bread Wrapping Machine Feeder / Pulmonary Medicine Routine Consulting Provider: Intensivists/Pulmonary Med Reason for Consult: B interstitial infiltrates EMERGENT Consult: No Notified: Yes Date Notified: 11/06/24 Time Notified: 15:58 Method of Notification: Tele Med Consult placed 11/07/24 09:19 Consult: Infectious Disease Routine Consulting Provider: Chidi Arellano Reason for Consult: HIV + EMERGENT Consult: No Notified: Yes Date Notified: 11/07/24 Time Notified: 09:20 Method of Notification: Verbal Reason For Visit: HYPOXIA 2/2 CAP Diagnosis Discharge Diagnosis (1) Bilateral interstitial pneumonia: Status: Acute Code(s): J84.9 - Interstitial pulmonary disease, unspecified Plan: Diffuse bilaterally. Unclear type. Given the +HIV test, concern for Pneumocystis jiroveci infection. On vancomycin, clindamycin, fluconazole. Methylpred Methylpred, BDs, respiratory panel Blood culture pending autoimmune work ordered Endoscopy performed on 11/08 which was grossly normal DW Dr. Arellano on 11/08: ok for discharge on 11/09. Follow up with ID for results of the studies. Cefdinir for pneumonia. Fluconazole. Biktarvy. Primaquine (discussed w patient--not for malaria, but concern for PCP) (2) HIV (human immunodeficiency virus infection): Status: Acute Code(s): Z21 - Asymptomatic human immunodeficiency virus [HIV] infection status Plan: Concern for active infection, cannot rule out the possibility of AIDS at this time. ID consulted. CD4, viral load pending Plan VTE prophylaxis: LMWH. Medications at Discharge Home Medications bictegravir 50 mg-emtricitabine 200 mg-tenofovir alafenam 25 mg tablet (Biktarvy) 1 tab PO DAILY #30 tabs 11/08/24 cefdinir 300 mg capsule 300 mg PO BID #10 caps 11/08/24 clindamycin HCl 150 mg capsule (Cleocin HCl) 450 mg (3 x 150 mg) PO TID 19 days #171 caps 11/08/24 fluconazole 100 mg tablet 100 mg PO DAILY 7 days #7 tabs 11/08/24 primaquine 26.3 mg (15 mg base) tablet 52.6 mg (2 x 26.3 mg (15 mg base)) PO DAILY 19 days #38 tabs 11/08/24 Hospital Course Operations None Procedures Bronchoscopy Summary of Care Provided Minutes Spent on Discharge: 35 Medical Records Data Medical Nutrition Assessment Dietitian: Malnutrition Criteria Met Start: 11/07/24 10:31 Freq: Status: Active Protocol: Document 11/07/24 11:07 SB (Rec: 11/07/24 11:08 SB [id number]) Nutrition Malnutrition Evidence of Yes Malnutrition Exists Malnutrition (severe Chronic ): Evidenced By Suboptimal Energy Intake (Severe),Weight Loss (Severe) Clinical Problem Chronic Disease or Condition Related Malnutrition Etiology severe related to inadequate oral intake Signs/Symptoms as evidenced by PO meeting <75% of estimated nutrition needs x 4 months and 18% weight loss x 6 months. Status Active Problem Recommendation Dietitian Continue regular diet. Recommendations/ Pt denied ONS at this time, will ask again at time of Changes follow up if PO is still poor. Will order orange/red Gatorade per pt request. Will monitor weight trends. Weight / BMI Weight Weight: 55.8 kg Body Mass Index (BMI) 24.0 ABG / Lab / Microbiology Data 11/08/24 04:19 11/08/24 04:19 Laboratory: Laboratory Results - last 24 hr 11/07/24 15:14: Miscellaneous Test 2 Cancelled 11/08/24 11:37: Fluid Source BRONCHIAL LAVAGE, Fluid Color COLORLESS, Fluid Appearance CLOUDY, Fluid WBC 670, Fluid RBC 130, Fluid Tot Cell Count TNP, Fluid Neutrophils 84, Fluid Lymphocytes 8, Fluid Other Cells 8, Fl Pathologist Comment May follow Microbiology: Microbiology 11/08/24 11:37 Bronchial Lavage - Right Middle Lobe Respiratory Culture - Preliminary Presumptive C albicans 11/07/24 Unknown Urine, Clean Catch Chlamydia/Neisseria (PCR) - Final 11/07/24 11:21 Nasal Secretion MRSA (PCR) - Final 11/06/24 17:54 Mucosa - Nasopharyngeal Respiratory Panel (PCR) - Final 11/06/24 Unknown Urine, Random Legionella Antigen - Final 11/06/24 Unknown Urine, Random Streptococcus pneumoniae Antigen (M - Final 11/06/24 11:49 Mucosa - Nose SARS-CoV-2, Influenza & RSV (PCR) - Final D/C Instructions Discharge Diet: No restrictions DC O2, CPAP, BIPAP Needs Home O2 Discharge instructions: No Meaningful Use Info Meaningful Use Meaningful Use Diagnoses (Choose all that apply): None applicable Ischemic Stroke Statin Dosing Therapy Reference: STATIN DOSE THERAPY REFERENCE: * Patients > 75 years receive moderate or high dose statin therapy. * Patients 75 years or YOUNGER should receive HIGH intensity statin dose unless contraindicated. You will be required to document reason for non-treatment if statin daily dose does not meet guidelines. HIGH DOSE STATIN THERAPY DAILY Atorvastatin > than or = to 40 mg Rosuvastatin > than or = to 20 mg Amlodipine + Atorvastatin > than or = to 2.5/40 mg Ezetimibe + Simvastatin 10/80 mg Simvastatin 80mg Discharge Plan Admission Admit Date/Time: 11/06/24 15:43 Primary Reason for Your Visit: pneumonia Attending Provider: Pb Adams Primary Care Provider: Care Physician,No Primary Consulting Providers: Damian Lorenzo; Rick Charles; Kee Rodgers; Rangel Cardona; Martell Yin; Martin Rodriguez; Irving Torres; Krissy Wolfe; Miguel Bulter; Jimmy Nelson; Juan Carlos Padilla; Maddie Hess; Nan Watson; Sabina Balderas; Davey Rivera; Wilmer Amin; Igor Fall; Sammy Sandhu; Noah Peterson; Suhail Thorpe; Antwon Razo; Mark Coker; Walt Krishnan; Shayy Dodson; Chidi Arellano Discharge Orders/Prescriptions Prescriptions: New fluconazole 100 mg Tablet 100 mg PO DAILY 7 Days Qty: 7 0RF primaquine 26.3 mg (15 mg base) Tablet 52.6 mg PO DAILY 19 Days Qty: 38 0RF clindamycin HCl [Cleocin HCl] 150 mg capsule 450 mg PO TID 19 Days Qty: 171 0RF Biktarvy 50-200-25 mg tablet 1 tab PO DAILY Qty: 30 2RF cefdinir 300 mg capsule 300 mg PO BID Qty: 10 0RF Referrals / Follow Up: Haydee Paloma[facility] [Provider Group] - Within 2 Weeks Chidi Arellano MD [Med Staff - Active Staff] - Within 2 Weeks Care Physician,No Primary [Primary Care Provider] - Disposition Disposition (needs filled in before D/C Order can be placed): Home, Self Care Charges/Coding Visit Charges Inpatient E&M: 70696 Disch Hosp >30min
[2024-11-09 14:14] VITALS: BP 112/89; PULSE 87; RESP 18; TEMP 36.4; O2SAT 100
[2024-11-09 15:08] LABS: Cytoplasmic Ab (C-ANCA) <1:20 titer (Neg:<1:20); Perinuclear Ab (P-ANCA) <1:20 titer (Neg:<1:20)
[2024-11-10 20:12] LABS: Cryptococcus Ag, Serum Negative (Negative)
[2024-11-11 14:08] LABS: HIV-1 RNA by PCR, Quant. 763000 copies/mL (.); LOG10 HIV-1 RNA 5.883 (.)
[2024-11-11 14:08] LABS: Absolute CD4 Helper 47 /uL (359-1519); Basophils (Absolute) 0 x10E3/uL (0.0-0.2); Eosinophils 0 % (Not Estab.); Eosinophils (Absolute) 0 x10E3/uL (0.0-0.4); Hematocrit 28.7 % (34.0-46.6); Hemoglobin 8.6 g/dL (11.1-15.9); Immature Granulocytes 1 % (Not Estab.); Immature Granulocytes Absolute 0 x10E3/uL (0.0-0.1); Lymphs 4 % (Not Estab.); Lymphs (Absolute) 0.4 x10E3/uL (0.7-3.1); MCH 29.5 pg (26.6-33.0); MCV 98 fL (79-97); Monocytes 3 % (Not Estab.); Monocytes (Absolute) 0.2 x10E3/uL (0.1-0.9); Neutrophils 92 % (Not Estab.); Neutrophils (Absolute) 7.9 x10E3/uL (1.4-7.0); Percent % CD4 Pos. Lymph. 11.8 % (30.8-58.5); Platelets 134 x10E3/uL (150-450); RBC Count 2.92 x10E6/uL (3.77-5.28); RDW 15.8 % (11.7-15.4); WBC Count 8.5 x10E3/uL (3.4-10.8)
[2024-11-11 17:08] LABS: CMV Quant DNA log 3.431 (.); EBV Acute VCA IgM < 36.0 U/mL (0.0-35.9); EBV-VCA IgG > 600.0 U/mL (0.0-17.9); Hepatitis A AB, Total Negative (Negative); QNTFERON TB Mitogen Value 1.35 IU/mL (.); QNTFERON TB Nil Value 0.04 IU/mL (.); QNTFERON TB1+ Ag Value 0.04 IU/mL (.); QNTFERON TB2+ Ag Value 0.05 IU/mL (.); QNTIFERON TB Positive Criteria Negative (Negative)
[2024-11-12 11:15] LABS: Pathologist Comment/Body Fluid Reviewed
== END 2024-11-09 14:50 | disposition home or self-care (01) | DRG 142 ==
LOC: ED 15:45 → PCU 11-07 06:57
PROVIDERS: Internal Medicine; Internal Medicine Critical Care Medicine; Internal Medicine Infectious Disease; Admitting Provider Internal Medicine; Emergency Provider Emergency Medicine
PROC: 0BJ08ZZ Inspection of Tracheobronchial Tree, Via Natural or Artificial Opening Endoscopic (ICD-10-PCS; CPT 31622; principal; 2024-11-08 10:45)
DX: J84.9 Interstitial pulmonary disease, unspecified (principal); E43 Unspecified severe protein-calorie malnutrition; Z21 Asymptomatic human immunodeficiency virus [HIV] infection status; D64.9 Anemia, unspecified; E87.6 Hypokalemia; F17.210 Nicotine dependence, cigarettes, uncomplicated
CPT/HCPCS: 36415; 36600; 71046; 71275; 80048; 80053; 80061; 80202; 80307; 81001; 81025; 82728; 82803; 83540; 83550; 83605; 83615; 83735; 83880; 84100; 84145; 85025; 85045; 85652; 86037; 86140; 86225; 86361; 86480; 86664; 86665; 86703; 86706; 86708; 86777; 86778; 86780; 86803; 87015; 87040; 87070; 87101; 87116; 87205; 87206; 87252; 87340; 87449; 87491; 87497; 87536; 87591; 87631; 87633; 87641; 87899; 88108; 88305; 88313; 89050; 93005; 94640; 94668; 97802; 99252; 99285; Q9967; A4216; G0463; J0696; J2405

== ENCOUNTER → 2024-11-19 | Outpatient (CLI) | payer MEDICAID, SELFPAY ==
[2024-11-19 17:04] LABS: Absolute Lymphocyte Count 0.47 X10^3/uL (0.83-4.51); Absolute Neutrophil Count 4.2 X10^3/uL (2.0-7.7); Basophil# 0.02 X10^3/uL; Basophil% 0.4 % (0-1); Eosinophil# 0.13 X10^3/uL; Eosinophils% 2.5 % (0-5); Hematocrit 25.3 % (37-47); Hemoglobin 8.4 g/dL (12.0-15.0); Lymphocyte # 0.47 X10^3/ul (0.83-4.51); Lymphocyte % 9.2 % (19-41); Mean Corp Hgb Conc 33.2 g/dL (32-36); Mean Corpuscular Hgb 29.2 pg (27.0-32.0); Mean Corpuscular Volume 87.8 fL (81-99); Mean Platelet Vol. 11.3 fl (6.2-12.0); Monocyte# 0.26 X10^3/uL; Monocyte% 5.1 % (0-10); NRBC Flagged by Analyzer 0 % (0-5); Neutrophil % 82.4 % (47-70); POSITIVE DIFFERENTIAL YES; POSITIVE MORPHOLOGY YES; Platelet Count 244 K/mm3 (150-450); RBC Distribution Width CV 15.7 % (11.6-14.6); RBC Distribution Width SD 49.9 fl (35.1-43.9); Red Blood Count 2.88 M/mm3 (4.2-5.4); White Blood Count 5.1 K/mm3 (4.4-11.0)
[2024-11-19 17:28] LABS: AST(SGOT) 35 U/L (<=31); Alanine Aminotransfer ALT/SGPT 18 U/L (<=34); Albumin, Serum 3.2 g/dL (3.5-5.0); Alkaline Phosphatase 262 U/L (35-104); Anion Gap 17 (5-15); BUN 19 mg/dL (4-19); BUN/Creat Ratio 16.7 RATIO (10-20); Calcium,Total 9.4 mg/dL (7.6-11.0); Carbon Dioxide 18.6 mmol/L (21.0-32.0); Chloride 96 mmol/L (98-108); Creatinine, Serum 1.13 mg/dL (0.70-1.20); EST Glomerular Filtration Rate 63 (>60); Ferritin 771 ng/mL (22-378); Globulin 3.2 g/dL (2.2-4.2); Glucose 113 mg/dL (70-99); Iron 14 ug/dL (50-170); Iron Binding Capacity,Unsat 209 ug/dL (228-428); Potassium 3.2 mmol/L (3.3-5.1); Protein, Total 6.5 g/dL (5.9-8.4); Sodium Level 131 mmol/L (133-145); Total Bilirubin 0.55 mg/dL (0.00-1.30)
[2024-11-19 17:32] LABS: Differential Indicated SCAN CRITERIA MET
[2024-11-19 19:22] LABS: Iron Binding Capacity,Total 223 ug/dL (250-450)
[2024-11-19 22:51] LABS: Differential Comment SCANNED
[2024-11-19 22:53] LABS: Anisocytosis 1+; Platelet Estimate ADEQUATE (ADEQ); Polychromasia 1+
== END | disposition home or self-care (01) ==
LOC: VSLAB 11:29
PROVIDERS: PCP Nurse Practitioner Family; Visit Provider Nurse Practitioner Family
DX: D64.9 Anemia, unspecified (principal)
CPT/HCPCS: 36415; 80053; 82728; 83540; 83550; 85025

== ENCOUNTER 2024-11-20 13:34 | Inpatient (IN) | payer MEDICAID, SELFPAY ==
[2024-11-20] VITALS (27 sets, daily range): BP systolic 80–142; BP diastolic 40–81; PULSE 97–130; RESP 16–36; TEMP 36.4–39.2; O2SAT 90–99; BMI 21.9; BMI 22.5
[2024-11-20 14:00] LABS: Absolute Lymphocyte Count 0.16 X10^3/uL (0.83-4.51); Absolute Neutrophil Count 2.8 X10^3/uL (2.0-7.7); Basophil# 0.01 X10^3/uL; Basophil% 0.3 % (0-1); Differential Indicated SCAN CRITERIA MET; Eosinophil# 0.21 X10^3/uL; Eosinophils% 6.4 % (0-5); Hematocrit 25.2 % (37-47); Hemoglobin 8.6 g/dL (12.0-15.0); Lymphocyte # 0.16 X10^3/ul (0.83-4.51); Lymphocyte % 4.9 % (19-41); Mean Corp Hgb Conc 34.1 g/dL (32-36); Mean Corpuscular Hgb 29.6 pg (27.0-32.0); Mean Corpuscular Volume 86.6 fL (81-99); Mean Platelet Vol. 10.5 fl (6.2-12.0); Monocyte% 3.1 % (0-10); NRBC Flagged by Analyzer 0 % (0-5); Neutrophil # 2.77 X10^3/uL (2.7-7.7); Neutrophil % 84.7 % (47-70); POSITIVE DIFFERENTIAL YES; POSITIVE MORPHOLOGY YES; Platelet Count 228 K/mm3 (150-450); RBC Distribution Width CV 15.8 % (11.6-14.6); RBC Distribution Width SD 49.8 fl (35.1-43.9); Red Blood Count 2.91 M/mm3 (4.2-5.4); White Blood Count 3.3 K/mm3 (4.4-11.0)
[2024-11-20 14:18] LABS: Anion Gap 14 (5-15); BUN 22 mg/dL (4-19); BUN/Creat Ratio 22.6 RATIO (10-20); Calcium,Total 9.3 mg/dL (7.6-11.0); Carbon Dioxide 19.8 mmol/L (21.0-32.0); Chloride 97 mmol/L (98-108); Creatinine, Serum 0.98 mg/dL (0.70-1.20); EST Glomerular Filtration Rate 75 (>60); Estimated Creatinine Clearance 55.36 ml/min (50-250); Glucose 134 mg/dL (70-99); Potassium 2.9 mmol/L (3.3-5.1); Sodium Level 132 mmol/L (133-145)
--- NOTE | 2024-11-20 14:40 | RAD_ITS ---
PROCEDURE: CHEST PA AND LATERAL 11/20/2024 REASON FOR EXAM: FEVER, COUGH, HYPOXIA TECHNIQUE: CHEST PA AND LATERAL COMPARISON: Prior study dated November 06, 2024. FINDINGS: Hardware: EKG electrodes are seen. Heart: The heart size is normal. Mediastinum: The mediastinal contour is unremarkable. Lungs: Multifocal areas of ground-glass appearance throughout both lungs. Infectious process should be ruled out. Follow-up recommended. Bones: The bones are unremarkable. RAD/Chest PA and Lateral IMPRESSION: Multifocal bilateral areas of patchy airspace disease as described. Infectious process should be ruled out. Radiographic follow-up recommended. Reading Location: [place] [id number]
[2024-11-20] MEDS: Ipratropium/Albuterol Sulfate 3 ML AMPUL.NEB INHALATION (14:50)
[2024-11-20] MEDS: Albuterol 2.5 MG/3 ML VIAL.NEB. INHALATION ×4 (14:50→21:10)
--- NOTE | 2024-11-20 14:55 | EKG12_ITS ---
Test Reason : sob Blood Pressure : */* mmHG Vent. Rate : 127 BPM Atrial Rate : 127 BPM P-R Int : 128 ms QRS Dur : 86 ms QT Int : 298 ms P-R-T Axes : 67 59 19 degrees QTcB Int : 433 ms Sinus tachycardia Otherwise normal ECG Confirmed by LUCIE VELASQUEZ, DEIRDRE ([id number]), mapping editor ISABELA GABMOA ([id number]) on 11/22/2024 1:01:52 PM Referred By: Confirmed By: DEIRDRE FAULKNER MD
--- NOTE | 2024-11-20 14:59 | EX.ED.DYSGE1 ---
HPI History of Present Illness Chief Complaint: Shortness of Breath Informant: patient Onset/Context/Timing Onset: Days Context: Sudden Onset Timing: Intermittent Quality: Fever, chills increased shortness of breath Location: Generalized and respiratory Current Severity: Mild Maximum Severity: Moderate Worsened by: Walking Relieved by: Better with rest Associated Symptoms Associated Symptoms: HPI narrative Narrative Narrative: Patient is a 39-year-old female. She was admitted earlier this month for sepsis due to to bilateral incision ammonia. Patient was found to have HIV. Based on recent blood work that has returned since her admission patient has AIDS. She was unaware that she had AIDS. She is presently on antibiotics, antiviral for HIV and primaquine for presumed pneumocystis opportunistic infection. Patient presents because of fever, chills, increased shortness of breath and cough. She has thrush. She was discharged on a 7-day course of flucanazole. Recent Illness/Hospitalization: Yes [facility] Medical History Anemia Migraine headache Gastric reflux Hoarseness Hx of sepsis Smoker Abnormal results of thyroid function studies Malaise and fatigue Unspecified voice and resonance disorder Hair loss Insomnia Home Medications ?Medication ?Instructions ?Recorded ?Last Taken ?Type bictegravir 50 mg-emtricitabine 1 tab PO DAILY #30 tabs 11/08/24 Unknown Rx 200 mg-tenofovir alafenam 25 mg tablet (Biktarvy) cefdinir 300 mg capsule 300 mg PO BID #10 caps 11/08/24 Unknown Rx clindamycin HCl 150 mg capsule 450 mg (3 x 150 mg) PO TID 19 days 11/08/24 Unknown Rx (Cleocin HCl) #171 caps fluconazole 100 mg tablet 100 mg PO DAILY 7 days #7 tabs 11/08/24 Unknown Rx primaquine 26.3 mg (15 mg base) 52.6 mg (2 x 26.3 mg (15 mg base)) 11/08/24 Unknown Rx tablet PO DAILY 19 days #38 tabs lorazepam 0.5 mg tablet 0.5 mg PO BID PRN anxiety #6 tabs 11/09/24 Unknown Rx ondansetron HCl 8 mg tablet 8 mg PO Q8H PRN nausea and 11/09/24 Unknown Rx vomiting #10 tabs Allergy/AdvReac Type Severity Reaction Status Date / Time sulfamethoxazole (From Allergy Low Verified 11/20/24 13:38 Bactrim) neutrophils trimethoprim (From Bactrim) Allergy Low Verified 11/20/24 13:38 neutrophils Family History Mother Cancer Aunt Thyroid disorder Grandfather CVA (cerebral vascular accident) Parkinsons Surgical History Hx of foot surgery History of oral surgery History of appendectomy History of tonsillectomy Social History household members: significant other current occupational status: employed Smoking Status: Light Smoker (<10/day) alcohol intake: current alcohol intake frequency: a few times a month substance use type: does not use what type of physical activity do you participate in: other ROS ROS ED Constitutional Constitutional ED: Reports chills, fever(s), sweats and weight loss; Denies subjective Eyes Eyes: Denies blurry vision, change in vision or diplopia ENT ENT ED: Denies ear pain, rhinorrhea or sore throat Cardiovascular Cardiovascular: Reports palpitations and racing heartbeat; Denies chest pain, orthopnea or paroxysmal nocturnal dyspnea Respiratory/Chest Respiratory/Chest: Reports cough, dyspnea and dyspnea on exertion; Denies orthopnea or paroxysmal nocturnal dyspnea Gastrointestinal Gastrointestinal: Reports nausea; Denies abdominal pain or vomiting Genitourinary Genitourinary ED: Denies dysuria, hematuria or urinary frequency Musculoskeletal Musculoskeletal: Denies back pain or neck pain Integumentary Denies rash Neurologic Neurologic: Reports weakness; Denies headache(s) or paresthesias Hematologic/Lymphatic Hematologic/Lymphatic: Reports systems reviewed and no addt'l complaints, except as documented EXAM Physical Exam Const Vital Signs: 11/20/24 13:35 11/20/24 13:38 11/20/24 13:42 Temperature 101 F H 101 F H Temperature Source Oral Oral Pulse Rate 130 H 130 H Respiratory Rate 16 16 Respiratory Effort Respiratory Depth Respiratory Pattern Blood Pressure 142/78 H 142/78 H Blood Pressure Mean 99 99 Pulse Ox 92 92 Oxygen Delivery Method Room Air Room Air Room Air 11/20/24 13:42 11/20/24 14:06 11/20/24 14:38 Temperature 100.1 F H Temperature Source Axillary Pulse Rate 117 H Respiratory Rate 32 H Respiratory Effort Short of Breath Respiratory Depth Normal Respiratory Pattern Tachypnea Blood Pressure 80/40 L Blood Pressure Mean 53 Pulse Ox 93 93 Oxygen Delivery Method Room Air Room Air Room Air 11/20/24 14:52 11/20/24 15:29 Temperature Temperature Source Pulse Rate 113 H 127 H Respiratory Rate 18 30 H Respiratory Effort Respiratory Depth Respiratory Pattern Normal Blood Pressure 96/54 L Blood Pressure Mean 68 Pulse Ox 93 Oxygen Delivery Method Room Air Positive well nourished and well developed General Appearance ED: well developed; Negative for cyanotic, diaphoretic, NAD or pallor HEENT Reports dry mucous membranes Mouth ED: Yes dry mucous membranes Mouth: dry mucous membranes Eyes PERRL and EOMs intact bilaterally General Eye ED: Yes pale conjunctiva; Negative for scleral icterus Neck no lymphadenopathy, supple and no JVD Chest Wall inspection of chest normal and palpation of chest normal Resp normal respiratory effort and No clear to auscultation bilaterally Resp Narrative: Bilateral expiratory wheezing heard throughout. Bilateral rales on inspiration heard throughout. Cardio regular rhythm, S1 normal heart sound, S2 normal heart sound and no murmurs Rate: tachycardic GI normal to inspection, nondistended, normoactive bowel sounds, non-tender, non-distended and no masses; Negative for hepatosplenomegaly Back/Spine no CVA tenderness Extremity normal to inspection General Extremety ED: Negative for edema or tenderness General Extremity: Negative for edema Neuro oriented x3 and CN's II-XII intact bilaterally Sensorium / Orientation: alert Psych Mood & Affect: depressed Skin no rashes or lesions noted, no wounds and skin turgor normal General Skin Exam: Negative for jaundice or pallor Sepsis Attestation Sepsis Alert: Yes Sepsis Attestation: Agree w/Sepsis Date exam was performed: 11/20/24 Time exam was performed: 15:29 Possible Source of Sepsis: Pulmonary Sepsis Organ Dysfunction Criteria Present: SBP < 90 mmHg or MAP < 65 mmHg Fluid Resuscitation Fluid resuscitation indicated?: Yes Fluid Resuscitation ordered: 30 ml/kg fluid bolus ordered Amount of fluid ordered: 1,550 Sepsis Note Date exam was performed: 11/20/24 Time exam was performed: 15:57 Sepsis Attestation: Sepsis re-evaluation was performed Response to fluids: Fluid responsive hypotension (Blood pressure is 94/54 with a mean arterial pressure 75) MDM MDM MDM Narrative Medical decision making narrative: Case was discussed with infectious disease. Antibiotics were not initially started since she is present on antibiotics and on primaquine for presumed pneumocystis infection. After discussion with Dr. Arellano patient was started on vancomycin and Zosyn. Since patient was hypotensive she received a 30 cc/kg bolus. The hospitalist was paged for admission. Patient does meet criteria for sepsis. Lab Data Attestation: I reviewed the patient's lab results. Lab results narrative: Patient is neutropenic. She is also anemic. Based on prior labs she has iron deficiency anemia. Electrolyte panel is remarkable for hyponatremia, hypokalemia, CO2 is 19.8 with an anion gap of 14. BUN to creatinine ratio is elevated. Glucose is slightly elevated 134. LDH is greater than 2 times normal which raises concern for pneumocystis jiroveci infection. Labs: Laboratory Results - last 24 hr 11/20/24 11/20/24 13:46 14:15 WBC 3.3 L RBC 2.91 L Hgb 8.6 L Hct 25.2 L MCV 86.6 MCH 29.6 MCHC 34.1 RDW Std Deviation 49.8 H RDW Coeff of Deb 15.8 H Plt Count 228 MPV 10.5 Immature Gran % (Auto) 0.600 Neut % (Auto) 84.7 H Lymph % (Auto) 4.9 L Ripley % (Auto) 3.1 Eos % (Auto) 6.4 H Baso % (Auto) 0.3 Absolute Neuts (auto) 2.8 Absolute Lymphs (auto) 0.16 L Nucleated RBC % 0 Differential Comment COMMENT Sodium 132 L Potassium 2.9 L Chloride 97 L Carbon Dioxide 19.8 L Anion Gap 14 BUN 22 H Creatinine 0.98 Estim Creat Clear Calc 55.36 Est GFR (MDRD) Non-Af 75 BUN/Creatinine Ratio 22.6 H Glucose 134 H Calcium 9.3 Lactate Dehydrogenase 648 H Radiography Chest X-Ray - ED: 2 View and Read by ED Physician (Independent review interpreted by me as multifocal bilateral interstitial patchy infiltrates involving all lung anne. This is a significant change from her chest x-ray dated November 06. CT revealed bilateral interstitial patchy infiltrates that was performed on same date.) Diagnostic Testing: Clinical Impression(s) from Imaging Studies Chest X-Ray 11/20/24 14:40 IMPRESSION: Multifocal bilateral areas of patchy airspace disease as described. Infectious process should be ruled out. Radiographic follow-up recommended. Reading Location: [place] [id number] Management Discussion w/another healthcare provider: Instructor Of Spanish (Spoke with Dr. Arellano who has seen patient on prior admission. He recommended vancomycin and Zosyn. These were ordered.) Treatment and Re-Evaluation :: I was informed by nurse that her blood pressure has dropped to 80/40. She will receive a 30 cc/kg bolus. Blood cultures lactate was ordered. Since she is on multiple antiantibiotics, and concern for opportunistic infection we will contact infectious disease to discuss treatment options and what else should be added to her present regimen. Critical Care Time Critical Care Time: Yes Critical care time (excluding procedures): 30-74 minutes (34), Including time spent: (History, physical, documentation, independent rotation laboratory results and treatment for possible opportunistic infection.), Discussing w/Patient &/or Family/Principal Quality Engineer (Discussion with patient and family member regarding HIV, AIDS opportunistic infection sepsis), Discussing w/Consultants (Hospitalist and infectious disease) and Arranging Admission or Transfer Discharge Plan Triage Chief Complaint: Shortness of Breath ED Provider: Parish Frias Dx/Rx/DC Orders Clinical Impression: Bilateral interstitial pneumonia, Severe sepsis, Neutropenia associated with infection, Hyponatremia, Hypochloremia, Acute prerenal azotemia, Nondiabetic hyperglycemia, Iron deficiency anemia, Hypoxia Prescriptions: No Action fluconazole 100 mg Tablet 100 mg PO DAILY 7 Days Qty: 7 0RF primaquine 26.3 mg (15 mg base) Tablet 52.6 mg PO DAILY 19 Days Qty: 38 0RF clindamycin HCl [Cleocin HCl] 150 mg capsule 450 mg PO TID 19 Days Qty: 171 0RF Biktarvy 50-200-25 mg tablet 1 tab PO DAILY Qty: 30 2RF cefdinir 300 mg capsule 300 mg PO BID Qty: 10 0RF lorazepam 0.5 mg tablet 0.5 mg PO BID PRN (Reason: anxiety) Qty: 6 0RF ondansetron HCl 8 mg tablet 8 mg PO Q8H PRN (Reason: nausea and vomiting) Qty: 10 0RF Primary Care Provider: Tia Hudson Referrals: Tannhof,Tia, CONDUCTOR P[employer]MAN-C [Primary Care Provider] - Print Language: Luxembourger Disposition Disposition: Acute Care Hospital [facility]
[2024-11-20 15:22] LABS: LDH 648 U/L (84-246)
[2024-11-20] MEDS: 0.9% Normal Saline (1000mL) 1,000 ML 999 ML IV ×2 (15:26→16:41)
--- NOTE | 2024-11-20 15:53 | PCM.HP.STD ---
HPI - General General Date of Admission: 11/20/24 Date of Service: 11/20/24 Chief Complaint: Fevers/chills and shortness of breath HPI Narrative ALMA DELIA HAYNES, is a 39 F who presented to [facility] on 11/20/2024 with fever/chills and shortness of breath. Patient was recently hospitalized here from 11/06-11/09. Was found to be HIV positive and had a very low CD4 count of 47 with new diagnosis of AIDS. 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 Had bronchoscopy done with pulmonology but cultures have not resulted from that yet. ID followed and she was discharged home on Proquin and clindamycin for PJP as well as fluconazole for thrush and Biktarvy for HIV. Patient states she was doing fairly well at home until a few days ago when she developed fever/chills and mild worsening shortness of breath. In the ED today she was febrile to 101.0F, had sinus tachycardia in the 130s and was hypotensive to the 80s over 40s. Chest x-ray showed multifocal bilateral areas of airspace disease, similar to previous. Patient was satting in the low 90s on room air at rest. Case was discussed with Dr. Arellano who noted that patient could have new bacterial pneumonia in setting of immunocompromised condition; could also have some degree of immune reconstitution inflammatory syndrome (IRIS). Patient was started on 30 cc/kg fluid bolus as well as IV vancomycin and Zosyn. Hospitalist was then contacted for admission. I saw the patient at bedside in the ED, mother was present. Patient was mildly fatigued. But otherwise sitting back comfortably in bed, conversing normally, in no acute distress. She had fairly clear breath sounds bilaterally throughout and no coughing episodes during my encounter with her. She stated that it was primarily fevers over the past few days that have been concerning to her. She has been taking all of her medications as prescribed. She denies any other acute concerns currently. Will be admitted to the ICU for further management. [facility] Medical History Anemia Migraine headache Gastric reflux Hoarseness Hx of sepsis Smoker Abnormal results of thyroid function studies Malaise and fatigue Unspecified voice and resonance disorder Hair loss Insomnia Home Medications ?Medication ?Instructions ?Recorded ?Last Taken ?Type bictegravir 50 mg-emtricitabine 1 tab PO DAILY #30 tabs 11/08/24 Unknown Rx 200 mg-tenofovir alafenam 25 mg tablet (Biktarvy) cefdinir 300 mg capsule 300 mg PO BID #10 caps 11/08/24 Unknown Rx clindamycin HCl 150 mg capsule 450 mg (3 x 150 mg) PO TID 19 days 11/08/24 Unknown Rx (Cleocin HCl) #171 caps fluconazole 100 mg tablet 100 mg PO DAILY 7 days #7 tabs 11/08/24 Unknown Rx primaquine 26.3 mg (15 mg base) 52.6 mg (2 x 26.3 mg (15 mg base)) 11/08/24 Unknown Rx tablet PO DAILY 19 days #38 tabs lorazepam 0.5 mg tablet 0.5 mg PO BID PRN anxiety #6 tabs 11/09/24 Unknown Rx ondansetron HCl 8 mg tablet 8 mg PO Q8H PRN nausea and 11/09/24 Unknown Rx vomiting #10 tabs Allergy/AdvReac Type Severity Reaction Status Date / Time sulfamethoxazole (From Allergy Low Verified 11/20/24 13:38 Bactrim) neutrophils trimethoprim (From Bactrim) Allergy Low Verified 11/20/24 13:38 neutrophils Family History Mother Cancer Aunt Thyroid disorder Grandfather CVA (cerebral vascular accident) Parkinsons Surgical History Hx of foot surgery History of oral surgery History of appendectomy History of tonsillectomy Social History household members: significant other current occupational status: employed Smoking Status: Light Smoker (<10/day) alcohol intake: current alcohol intake frequency: a few times a month substance use type: does not use what type of physical activity do you participate in: other ROS Constitutional Constitutional: Reports chills, fatigue and fever(s); Denies weakness Eyes Eyes: Denies change in vision Cardiovascular Cardiovascular: Denies chest pain Respiratory/Chest Respiratory/Chest: Reports cough and shortness of breath with exertion; Denies productive cough, shortness of breath at rest or wheezing Gastrointestinal Gastrointestinal: Denies abdominal pain Musculoskeletal Musculoskeletal: Denies arthralgias or myalgias Neurologic Neurologic: Denies dizziness, focal weakness or headache(s) Vital Signs Vital Signs Vital Signs: 11/20/24 13:35 11/20/24 13:38 11/20/24 13:42 Temperature 101 F H 101 F H Temperature Source Oral Oral Pulse Rate 130 H 130 H Respiratory Rate 16 16 Respiratory Effort Respiratory Depth Respiratory Pattern Blood Pressure 142/78 H 142/78 H Blood Pressure Mean 99 99 Pulse Ox 92 92 Oxygen Delivery Method Room Air Room Air Room Air 11/20/24 13:42 11/20/24 14:06 11/20/24 14:38 Temperature 100.1 F H Temperature Source Axillary Pulse Rate 117 H Respiratory Rate 32 H Respiratory Effort Short of Breath Respiratory Depth Normal Respiratory Pattern Tachypnea Blood Pressure 80/40 L Blood Pressure Mean 53 Pulse Ox 93 93 Oxygen Delivery Method Room Air Room Air Room Air 11/20/24 14:52 11/20/24 15:29 Temperature Temperature Source Pulse Rate 113 H 127 H Respiratory Rate 18 30 H Respiratory Effort Respiratory Depth Respiratory Pattern Normal Blood Pressure 96/54 L Blood Pressure Mean 68 Pulse Ox 93 Oxygen Delivery Method Room Air Weight Weight: 50.831 kg Body Mass Index (BMI) 21.9 Physical Exam Const alert, oriented x3, no apparent distress and average body habitus Constitutional Narrative: Younger middle-aged female, mildly fatigued and flushed appearing but otherwise sitting back comfortably in bed, conversing normally, in no acute distress. General Appearance: cooperative and comfortable HEENT normocephalic, head/scalp atraumatic, hearing grossly normal bilaterally, nasal mucous membranes and turbinates normal and moist oral mucous membranes Eyes PERRL, EOMs intact bilaterally and conjunctivae normal Neck full ROM Chest inspection of chest normal Resp normal respiratory effort and no use of accessory muscles Resp Narrative: Breathing comfortably on room air at rest. Mildly diminished breath sounds in bilateral lung bases but otherwise good air movement throughout with no wheezing or crackles noted. Cardio no murmurs and peripheral pulses 2+ throughout Cardio Narrative: Tachycardic, regular rhythm. GI normal to inspection, nondistended, normoactive bowel sounds, soft to palpation, non-tender and non-distended Back/Spine normal ROM Extremity normal to inspection, full ROM and no pedal edema Skin no rashes or lesions noted Psych mental status grossly normal Results Lab / Micro Data 11/20/24 13:46 11/20/24 13:46 Labs: Laboratory Results - last 24 hr 11/20/24 13:46: WBC 3.3 L, RBC 2.91 L, Hgb 8.6 L, Hct 25.2 L, MCV 86.6, MCH 29.6, MCHC 34.1, RDW Std Deviation 49.8 H, RDW Coeff of Deb 15.8 H, Plt Count 228, MPV 10.5, Immature Gran % (Auto) 0.600, Neut % (Auto) 84.7 H, Lymph % (Auto) 4.9 L, [place] % (Auto) 3.1, Eos % (Auto) 6.4 H, Baso % (Auto) 0.3, Absolute Neuts (auto) 2.8, Absolute Lymphs (auto) 0.16 L, Nucleated RBC % 0, Differential Comment COMMENT, Sodium 132 L, Potassium 2.9 L, Chloride 97 L, Carbon Dioxide 19.8 L, Anion Gap 14, BUN 22 H, Creatinine 0.98, Estim Creat Clear Calc 55.36, Est GFR (MDRD) Non-Af 75, BUN/Creatinine Ratio 22.6 H, Glucose 134 H, Calcium 9.3 11/20/24 14:15: Lactate Dehydrogenase 648 H Imaging Radiology Impression Chest X-Ray 11/20/24 14:40 IMPRESSION: Multifocal bilateral areas of patchy airspace disease as described. Infectious process should be ruled out. Radiographic follow-up recommended. Reading Location: [facility]- Assessment & Plan Assessment/Plan (1) Sepsis: (2) Bilateral interstitial pneumonia: PLAN: Plan Patient is a 39-year-old female who presented [facility] ED on 11/20/2024 with fever/chills and shortness of breath. 1. Sepsis secondary to community-acquired bacterial pneumonia in setting of HIV/AIDS with recent PJP infection versus immune reconstitution inflammatory syndrome ? Admit under inpatient status to ICU. 911 Telecommunicator and ID consulted. Recently hospitalized from 11/06-11/09 for bilateral interstitial pneumonia. Found to be HIV positive and had CD4 count of 47 consistent with AIDS. Pulmonology followed and bronchoscopy was done but fluid results for PJP are still pending. ID followed and patient was started on treatment for presumed PJP with clindamycin and primaquine. Was also discharged home on Biktarvy. Presented on 11/20 with fever/chills and mild worsening shortness of breath. Chest x-ray showed bilateral interstitial infiltrates, similar to previous. Patient with saturations in the low 90s on room air at rest but only mild nonproductive cough noted. Met sepsis criteria on admit with SBP less than 90, fever, WBC count low at 3.3, sinus tachycardia and presumed pulmonary source of infection. Per ID, will treat with IV vancomycin and Zosyn for now. Will give 30 cc/kg of IV fluids and monitor blood pressure closely. Sputum culture, urine antigens and respiratory PCR panel sent. Continue clindamycin, primaquine and Biktarvy per ID. Presentation could also be due to IRIS in setting of recently initiated Biktarvy, but need to treat for infection at this time as well. Appreciate further ID and pulmonary recommendations. 2. Chronic normocytic anemia ? Hemoglobin 8.6 on admission, stable at baseline during prior admission. Iron studies during that admission showed elevated ferritin of 770 consistent with anemia of chronic disease. No further workup needed while inpatient. 3. Hypokalemia ? Potassium 2.9 on admit. Mag and Phos ordered. Follow-up a.m. potassium level and replete as needed. 4. Mild hyponatremia ? Sodium 132 on admit, stable from previous. Given IV fluids on admit as noted above. Follow-up a.m. sodium level. DVT prophylaxis: Lovenox CODE STATUS: Full code, verified Expected disposition: Home, TBD Total clinical time spent by myself addressing the patient's medical issues, reviewing all the data, and collaborating with patient's care team: 75 minutes. Charges/Coding Visit Charges Inpatient E&M: 13606 Init Hosp L3
--- NOTE | 2024-11-20 16:29 | PCM.CONS.GEN ---
Assessment & Plan Assessment/Plan (1) Hypoxia: (2) Bilateral interstitial pneumonia: (3) HIV (human immunodeficiency virus infection): PLAN: Recent dx of HIV/AIDS. No h/o ivdu. Treating empirically for PJP with clinda and primaquine. No new focal symptoms. Suspect IRIS as the cause but is at risk for other infections given immunosuppressed state. CD4 47, viral load 763k. Would check sputum cx, full resp pcr panel, and MRSA pcr. With PJP, would be at risk for pneumothorax but no change seen on cxr. Cont primaquine/clinda and biktarvy. Empiric vanc/zosyn. No sign of thrush on exam. If this is IRIS, treatment would be a short course of steroids. Will follow, thank you, d/w Dr. Frias and Tanya. HPI Consult Data Date of Consult: 11/20/24 HPI Narrative Reason for Consultation: fever HPI Narrative: ALMA DELIA HAYNES, is a 39 F with recent admit with new dx HIV/AIDS, treated for thrush and presumed PJP. Discharged on clinda/primaquine, fluconazole, cefdinir, and started biktarvy. Had been feeling better until one day of fever, mild increase in dry cough. No vision changes, no pain or difficulty swallowing. No sick contacts. No chest pain, abd pain, n/v/d. No new rash. Did scrape her knee recently, healing. Reports compliance with meds. Came to ED, had hypotension, plan is admit to icu. Full ROS performed and neg except as noted above. [facility] Medical History Anemia Migraine headache Gastric reflux Hoarseness Hx of sepsis Smoker Abnormal results of thyroid function studies Malaise and fatigue Unspecified voice and resonance disorder Hair loss Insomnia Home Medications ?Medication ?Instructions ?Recorded ?Last Taken ?Type bictegravir 50 mg-emtricitabine 1 tab PO DAILY #30 tabs 11/08/24 Unknown Rx 200 mg-tenofovir alafenam 25 mg tablet (Biktarvy) cefdinir 300 mg capsule 300 mg PO BID #10 caps 11/08/24 Unknown Rx clindamycin HCl 150 mg capsule 450 mg (3 x 150 mg) PO TID 19 days 11/08/24 Unknown Rx (Cleocin HCl) #171 caps fluconazole 100 mg tablet 100 mg PO DAILY 7 days #7 tabs 11/08/24 Unknown Rx primaquine 26.3 mg (15 mg base) 52.6 mg (2 x 26.3 mg (15 mg base)) 11/08/24 Unknown Rx tablet PO DAILY 19 days #38 tabs lorazepam 0.5 mg tablet 0.5 mg PO BID PRN anxiety #6 tabs 11/09/24 Unknown Rx ondansetron HCl 8 mg tablet 8 mg PO Q8H PRN nausea and 11/09/24 Unknown Rx vomiting #10 tabs Allergy/AdvReac Type Severity Reaction Status Date / Time sulfamethoxazole (From Allergy Low Verified 11/20/24 13:38 Bactrim) neutrophils trimethoprim (From Bactrim) Allergy Low Verified 11/20/24 13:38 neutrophils Family History Mother Cancer Aunt Thyroid disorder Grandfather CVA (cerebral vascular accident) Parkinsons Surgical History Hx of foot surgery History of oral surgery History of appendectomy History of tonsillectomy Social History household members: significant other current occupational status: employed Smoking Status: Light Smoker (<10/day) alcohol intake: current alcohol intake frequency: a few times a month substance use type: does not use what type of physical activity do you participate in: other Physical Exam Const alert, oriented x3 and no apparent distress General Appearance: cooperative HEENT normocephalic and head/scalp atraumatic Eyes PERRL and EOMs intact bilaterally Neck supple and No nodes Resp clear to auscultation bilaterally Auscultation: diminished lung sounds Cardio Rate: tachycardic GI soft to palpation, non-tender and non-distended Extremity General Extremity: Negative for edema Skin no rashes or lesions noted Neuro CN's II-XII intact bilaterally Lab / Micro Data Attestation: I reviewed the patient's lab results. 11/20/24 13:46 11/20/24 13:46 Labs: Laboratory Results - last 24 hr 11/20/24 13:46: WBC 3.3 L, RBC 2.91 L, Hgb 8.6 L, Hct 25.2 L, MCV 86.6, MCH 29.6, MCHC 34.1, RDW Std Deviation 49.8 H, RDW Coeff of Deb 15.8 H, Plt Count 228, MPV 10.5, Immature Gran % (Auto) 0.600, Neut % (Auto) 84.7 H, Lymph % (Auto) 4.9 L, [place] % (Auto) 3.1, Eos % (Auto) 6.4 H, Baso % (Auto) 0.3, Absolute Neuts (auto) 2.8, Absolute Lymphs (auto) 0.16 L, Nucleated RBC % 0, Differential Comment COMMENT, Sodium 132 L, Potassium 2.9 L, Chloride 97 L, Carbon Dioxide 19.8 L, Anion Gap 14, BUN 22 H, Creatinine 0.98, Estim Creat Clear Calc 55.36, Est GFR (MDRD) Non-Af 75, BUN/Creatinine Ratio 22.6 H, Glucose 134 H, Calcium 9.3 11/20/24 14:15: Lactate Dehydrogenase 648 H Imaging Radiology Impression Chest X-Ray 11/20/24 14:40 IMPRESSION: Multifocal bilateral areas of patchy airspace disease as described. Infectious process should be ruled out. Radiographic follow-up recommended. Reading Location: [place] [id number]
--- NOTE | 2024-11-20 16:38 | ED.RN ---
ATTEMPTED TO CALL REPORT TO ICU. NO ONE AVAILABLE TO TAKE REPORT AT THIS TIME
[2024-11-20 16:40] LABS: Lactic Acid 1.9 mmol/L (0.0-2.0)
[2024-11-20] MEDS: Piperacil/Tazobactam 3.375 GM in 0.9% Normal Saline (50mL MB+) 50 ML IV ×2 (16:41→21:06)
--- NOTE | 2024-11-20 16:42 | CASEMGMT ---
Social Work Patients last assessment was completed less than 30 days ago, patient verified no changes since last assessment. No further needs identified at this time. Gita Cooper, WELDER TECH, [employer]
[2024-11-20 16:45] LABS: Magnesium 1.7 mg/dL (1.5-2.2); Phosphorus 1.9 mg/dL (2.7-4.5)
--- NOTE | 2024-11-20 17:18 | ED.RN ---
REPORT CALLED TO ICU NURSE RAVINDER AT THIS TIME
[2024-11-20] MEDS: Vancomycin HCl 750 MG in 0.9% Normal Saline (250mL Bag) 250 ML 250 MG IV (17:31)
[2024-11-20] MEDS: Potassium Chloride Oral Tablet 20 MEQ 60 MEQ PO (17:31)
--- NOTE | 2024-11-20 19:48 | PCM.RX.CS ---
Consult Antibiotic Management Pharmacy has been consulted to manage selected antibiotic: Vancomycin Type of Intervention Type of Consult: New start Suspected Infection Suspected Infection: Other Labs Labs: Sodium 132 mmol/L (133-145) L 11/20/24 13:46 Potassium 2.9 mmol/L (3.3-5.1) L 11/20/24 13:46 Chloride 97 mmol/L (98-108) L 11/20/24 13:46 Carbon Dioxide 19.8 mmol/L (21.0-32.0) L 11/20/24 13:46 Anion Gap 14 (5-15) 11/20/24 13:46 BUN 22 mg/dL (4-19) H 11/20/24 13:46 Creatinine 0.98 mg/dL (0.70-1.20) 11/20/24 13:46 Est GFR (MDRD) Non-Af 75 (>60) 11/20/24 13:46 BUN/Creatinine Ratio 22.6 RATIO (10-20) H 11/20/24 13:46 Glucose 134 mg/dL (70-99) H 11/20/24 13:46 Microbiology Microbiology: Microbiology 11/20/24 18:10 Urine, Clean Catch Legionella Antigen - Final 11/20/24 18:10 Urine, Clean Catch Streptococcus pneumoniae Antigen (M - Final Goal Trough Goal Trough: 15-20 mcg/mL Pharmacy Plan for Drug Dosing Pharmacy Plan for Drug Dosing: NEW IV VANCOMYCIN Consulting Physician: Dr. Martínez Indication: R/O bacterial infection Goal Trough: 15-20 SrCr: 0.98 CrCl: 55 mL/min Comments: patient had initial dose of 750mg IV x1 in ED 11/20 @1731 Vancomycin Dose: 500mg IV Q12hr to start 11/21/24 @0500 Pending Level: 11/22/24 @0430, prior to 4th total dose per protocol Pharmacy Service will continue to monitor and adjust dosing as required.
[2024-11-20] MEDS: Ondansetron 4 MG/2 ML Vial IV (21:00)
[2024-11-20] MEDS: busPIRone 5 MG Tablet PO (21:04)
[2024-11-20] MEDS: MELATONIN 3 MG TABLET PO (21:04)
[2024-11-20] MEDS: guaiFENesin 10 ML UDC (200MG/10ML) PO (21:04)
[2024-11-20] MEDS: Acetaminophen 325 MG Tablet 650 MG PO (22:07)
[2024-11-20] MEDS: Clindamycin HCl 150 MG Capsule 450 MG PO (22:11)
--- OUTSIDE RECORDS SUMMARY | 2024-11-20 22:24 | XMS RPT_ITS | CCD ---
Author Organization [facility] Care Team Providers [employer] Name Role Phone Unavailable Primary Care Provider Unavailabl e Care Physician, No Primary Primary Care Provider Unavailable Care Physician, No Primary Referring Provider Un available LILLI Melgar Attending Provider [phone] MD Nitin Scott Attending Provider Unavailable Primary Care Provider Unavaililia Potts MD, Kyung Primary Care Provider Care Physician, No Primary Primary Care Provider Unavailable Rodriguez VELASQUEZ, Dr. Lugo Emergency Provider Dr. Shayy Dodson DO Admit Provider Dr. Shayy Dodson DO Attending Provider Dr. Shayy Dodson DO Other Provider Maura VELASQUEZ, Dr. Salgado Other Provider Araceli VELASQUEZ, Dr. Cabrera Other Provider Dr. Kee Rodgers MD Other Provider Dr. Rangel Cardona DO Other Provider [phone] Martell Yin MD Other Provider Dr. Martin Rodriguez MD Other Provider Melissa VELASQUEZ, Dr. Villatoro Other Provider Aiden VELASQUEZ, Dr. Rey Other Provider Carrie VELASQUEZ, Dr. Rivera Other Provider Dr. Jimmy Nelson MD Other Provider Randy VELASQUEZ, Dr. Rangel Other Provider [phone] Maddie Hess MD Other Provider Walter VELASQUEZ, Dr. [place] Other Provider Unavailabl wes Balderas MD, Dr. Muhammad Other Provider Nicole VELASQUEZ, Dr. Mariscal Other Provider [phone] Brennan VELASQUEZ, Dr. Guillen Other Provider Juan David VELASQUEZ, Dr. Costa Other Provider Phoebe HOOKER, Dr. Christianson Other Provider Kristen VELASQUEZ, Dr. Zamora Other Provider [phone] Maurilio VELASQUEZ, Dr. Jang Other Provider Dung HOOKER, Dr. Kapoor Other Provider John Paul VELASQUEZ, Dr. Flores Other Provider [phone] Eulogio VELASQUEZ, Dr. Godoy Other Provider Eileen VELASQUEZ, Dr. Murillo Other Provider Dr. Pb Adams DO Attending Provider [phone] Shayy Dodson DO Attending Provider Maribel VELASQUEZ, Dr. Mora Dorsey Attending Provider Dr. Rangel Cardona DO Attending Provider [phone] Dr. Pb Adams DO Other Provider [phone] [facility] Care Physician, No Primary Primary Care Unava ilable Damian Lorenzo Consulting Unavailable Shayy Dodson Admitting Unavailable Pb Adams Attending Unavailable Rick Charles Consulting Unavailable Kee Rodgers Consulting Unavailable Rangel Cardona Consulting Unavailable Martell Yin Consulting Unavailable Martin Rodriguez Consulting Unavailable Melissa, Irving Consulting Unavailable Krissy Wolfe Consulting Unavailab Miguel Vogt Consulting Unavailable Jimmy Nelson Consulting Unavailable Juan Carlos Padilla Consulting Unavailable Maddie Hess Consulting Unavailable Nan Watson Consulting Unavailable Sabina Balderas Consulting Unavailable Davey Rivera Consulting Unavailable Wilmer Amin Consulting Unavailable Igor Fall Consulting Unavailable Sammy Sandhu Consulting Unavailable Noah Peterson Consulting Unavailable [place], Soleyah Consulting Unavailable Fernstrom, Antwon Consulting Unavailable John Paul, Mark Consulting Unavailable Walt Krishnan Consulting Unavailable Shayy Dodson Consulting Unavailable Chidi Arellano Consulting Unavailable Care Physician, No Primary Primary Care Unava ilable Damian Lorenzo Consulting Unavailable Mora López Attending Unavailable Shayy Dodson Admitting Unavailable Rick Charles Consulting Unavailable Kee Rodgers Consulting Unavailable Rangel Cardona Consulting Unavailable Martell Yin Consulting Unavailable Martin Rodriguez Consulting Unavailable Irving Torres Consulting Unavailable Krissy Wolfe Consulting UnavailMiguel Leahy Consulting Unavailable NelsonJimmy wilkins Consulting Unavailable Juan Carlos Padilla Consulting Unavailable Maddie Hess Consulting Unavailable Nan Watson Consulting Unavailable Sabina Balderas Consulting Unavailable Davey Rivera Consulting Unavailable Wilmer Amin Consulting Unavailable Juan DavidIgor carrion Consulting Unavailable Dhesi, Sammy Consulting Unavailable Noah Peterson Consulting Unavailable Maurilio, Suhail Consulting Unavailable Fernstrom, Antwon Consulting Unavailable John Paul, Mark Consulting Unavailable Walt Krishnan Consulting Unavailable Shayy Dodson Consulting Unavailable Pb Adams Referring Unavailable Rangel Cardona Attending Unavailable Chidi Arellano Consulting Unavailable Pb Adams Consulting Unavailable Pb Adams Attending Unavailable Care Physician, No Primary Primary Care Unava ilable Joseph Currie Attending Unavailable Shayy Dodson Referring Unavailable Shayy Dodson Attending Unavailable Tia Hudson Primary Care Unavailable Tia Hudson Attending Unavailable Dr. Pb Adams DO Referring Provider [phone] Joseph Currie MD Attending Provider Dr. Shayy Dodson DO Referring Provider [phone] Tia Farrell Primary Care Provider Tia Farrell Attending Provider Dr. Cody Martínez DO Admit Provider Dr. Cody Martínez DO Attending Provider Allergies Allergy Classification Reported Allergen(s) Allergy Type Date of Onset Reaction(s) Facility (12 sources) Sulfamethoxazole; Translations: [SULFAMETHOXAZOLE] Drug Allergy 9 Other: See Comments [facility] (12 sources) Trimethoprim; Translations: [TRIMETHOPRIM] Drug Allergy 9 Other: See Comments [facility] (1 source) Sulfamethoxazole Drug Allergy 5 [facility] (1 source) Trimethoprim Drug Allergy 5 [facility] Medications Current Medications Medication Drug Class(es) Dates Sig (Normalized) Sig (Original) [id number] actuat albuterol 0.09 mg/actuat metered dose inhaler (6 sources) beta2-Adrenergic Agonist Start: 11-20-2024 Albuterol Sulfate 90 mcg/actuation HFA aerosol inhaler Active 2 NMA INHALATION EVERY 4 HOURS NEEDED as needed for wheezing November 20, 2024 12:00am Start: 01-15-2024 take 2 puff(s) by in halation every four hours as needed for wheezing [...] oral capsule (1 source) Non-narcotic Antitussive Start: End: take 1 capsule by mouth every eight hours as needed for cough and cough benzonatate (TESSALON PERLE) 100 mg capsule Indications: Acute cough Take 1 capsule by mouth every 8 hours as needed for cough for up to 15 days. 30 capsule 0 01/15/2024 01/30/2024 Active bictegravir 50 mg / emtricitabine 200 mg / tenofovir alafenamide 25 mg oral tablet (2 sources) Human Immunodeficiency Virus Nucleoside Analog Reverse Transcriptase Inhibitor Start: take 1 tablet by mouth once daily Bictegrav-Emtricit -Tenofov Ala (Biktarvy) 50-200-25 mg tablet Active 1 {tbl} PO DAILY November 08, 2024 12:00am busPIRone hydrochloride 5 mg oral tablet (1 source) Start: take 1 tablet by mouth three times daily Buspirone 5 mg tablet Active 5 mg PO THREE TIMES A DAY November 20, 2024 12:00am cefdinir 300 mg oral capsule (3 sources) Cephalosporin Antibacterial Start: take 1 capsule by mouth twice daily Cefdinir 300 mg capsule Active 300 mg PO TWICE A DAY November 08, 2024 12:00am Start: 04-23-2023 End: 04-30-2023 take 1 capsule by mouth twice daily cefdinir (OMNICEF) 300 mg capsule Indications: Acute otitis media, right Take 1 capsule by mouth two times a day for 7 days. 14 capsule 0 04/23/2023 04/30/2023 Active Comment on above: Take 1 capsule by [facility] two times a day for 7 days. clindamycin 150 mg oral capsule (2 sources) Lincosamide Antibacterial Start: take 3 capsules by mouth three times daily Clindamycin Hcl (Cleocin Hcl) 150 mg capsule Active 450 mg PO THREE TIMES A DAY 171 November 08, 2024 12:00am 168 hr ethinyl estradiol 0.40142 mg/hr / norelgestromin 0.06084 mg/hr transdermal system (4 sources) Progestin, Estrogen apply 1 dose transdermal route every week norelgestromin-eth inyl estradiol (XULANE, ZAFEMY) patch 150-35 mcg/24 hr Apply 1 Patch as directed once each week. Active Comment on above: Apply 1 Patch as dir ected once each week. fluconazole 100 mg oral tablet (2 sources) Azole Antifungal Start: take 1 tablet by mouth once daily Fluconazole 100 mg Tablet Active 100 mg PO DAILY 7 November 08, 2024 12:00am fluticasone propionate 0.05 mg/actuat metered dose nasal spray (7 sources) Corticosteroid Start: 09-01-2 021 take 2 spray(s) by mouth once daily fluticasone (FLONASE) 50 mcg/actuation nasal spray Use 2 Sprays in each nostril once daily. Rinse mouth after use. 1 Each 0 02/03/2021 Active Start: 08-06-2016 End: 01-15-2024 take 1 spray(s) nasal route once daily fluticasone (FLONASE) 50 mcg/actuation nasal spray Indications: Acute OREN (middle ear effusion), left Use 1 [place] in each nostril once daily. 16 g 2 08/06/2016 01/15/2024 Discontinued Comment on above: Use 1 [place] in each nostril once daily. Use 2 Sprays in each nostril once daily. Rinse mouth after use. Inhalational Spacing Device (1 source) Start: 01-15-20 End: 01-15-20 Inhalational Spacing Device Indications: Wheezing 1 Device one time only for 1 dose. 1 Each 0 01/15/2024 01/15/2024 Active LORazepam 0.5 mg oral tablet (2 sources) Benzodiazepine Start: 11-10-19 take 1 tablet by mouth twice daily as needed for anxiety Lorazepam 0.5 mg tablet Active 0.5 mg PO TWICE A DAY as needed for anxiety November 09, 2024 12:00am [place] (Nk) (1 source) Start: 11-07-19 [place] (Nk) Active November 06, 2024 12:00am ondansetron 8 mg oral tablet (2 sources) Serotonin-3 Receptor Antagonist Start: 11-10-19 take 1 tablet by mouth every eight hours as needed for nausea and vomiting Ondansetron Hcl 8 mg tablet Active 8 mg PO Q8H as needed for nausea and vomiting November 09, 2024 1:47pm primaquine phosphate 26.3 mg oral tablet (2 sources) Antimalarial Start: 11-09-19 Primaquine 26.3 mg (15 mg base) Tablet Active 52.6 mg PO DAILY 38 November 08, 2024 12:00am Completed/Discontinued Medications Medication Drug Class(es) Dates Sig (Normalized) Sig (Original) acetaminophen 325 mg oral tablet (11 sources) Start: 02-03-2022 End: 11-06-2024 take 2 tablets by mouth every six hours as needed Acetaminophen (Tylenol) 325 mg Tablet Discontinued 650 mg PO EVERY 6 HOURS as needed for PRN February 03, 2022 12:00am November 06, 2024 12:17pm End: 01-15-2024 acetaminophen (TYLENOL 8 LALO R ORAL) Take by mouth. 01/15/2024 Discontinued End: 01-15-2024 acetaminophen (TYLENOL 8 LALO R ORAL) Take by mouth. 0 01/15/2024 Discontinued acetaminophen (T YLENOL 8 HOUR ORAL) Take by mouth. 0 Active Comment on above: Take by mouth. acetaminophen 325 mg / oxyCODONE hydrochloride 5 mg oral tablet (20 sources) Opioid Agonist Start: 06-13-2023 End: 06-16-2023 Oxycodone-Acetaminophen (Percocet) 5-325 mg tablet Discontinued 1 {tbl} PO Q8H as needed for pain 14 3 June 13, 2023 June 15, 2023 1:00am June 16, 2023 1:05am Start: 06-08-2023 End: 06-12-2023 Oxycodone-Acetaminophen (Per cocet) 5-325 mg tablet Discontinued 1 {tbl} PO Q4H as needed for pain 20 4 June 08, 2023 June 11, 2023 1:00am June 12, 2023 1:04am Start: 02-03-2022 End: 06-08-2023 Oxycodone-Acetaminophen (Per cocet) 5-325 mg Tablet Discontinued 1 - 2 {tbl} PO EVERY 6 HOURS as needed for Pain February 03, 2022 12:00am June 08, 2023 3:32pm Start: 01-03-2019 End: 01-12-2019 Oxycodone-Acetaminophen 1 TA BLET tablet Discontinued 1 {tbl} PO EVERY 4 HOURS NEEDED as needed for Pain 12 January 03, 2019 January 09, 2019 12:00am January 12, 2019 12:09am Start: 01-03-2019 End: 01-12-2019 take 1 tablet by mouth every four hours as needed Oxycodone-Acetaminophen Discontinued 1 TABLET PO EVERY 4 HOURS NEEDED 12 January 03, 2019 January 11, 2019 11:09pm amoxicillin 500 mg oral tablet (7 sources) Penicillin-class Antibacterial Start: 01-03-2019 End: 07-08-2019 take 2 tablets by mouth three times daily Amoxicillin 500 MG tablet Discontinued 1000 mg PO THREE TIMES A DAY January 03, 2019 12:00am July 08, 2019 10:28am Start: 01-03-2019 End: 07-08-2019 take 1000 mg by mouth three times daily Amoxicillin Discontinued 1000 MG PO THREE TIMES A DAY January 02, 2019 11:00pm July 08, 2019 9:28am amoxicillin 875 mg / clavulanate 125 mg oral tablet (7 sources) Penicillin-class Antibacterial Start: 02-04-2019 End: 07-08-2019 take 1 tablet by mouth every twelve hours Amoxicillin-Pot Clavulanate 875 MG tablet Discontinued 875 mg PO Q12H February 04, 2019 12:00am July 08, 2019 10:28am brompheniramine maleate 0.4 mg/ml / dextromethorphan hydrobromide 2 mg/ml / pseudoephedrine hydrochloride 6 mg/ml oral solution (4 sources) alpha-Adrenergic Agonist, Uncompetitive [place]-R-aspartate Receptor Antagonist, Sigma-1 Agonist Start: 05-02-2018 End: [...] on above: Take 1 tablet by soren once daily. cyclobenzaprine hydrochloride 10 mg oral [...] spasm. oxyCODONE hydrochloride 5 mg oral tablet (7 sources) Opioid Agonist Start: 02-04-2022 End: 06-08-2023 take 1 tablet by mouth every four hours as needed for pain Oxycodone 5 mg tablet Discontinued 5 mg PO Q4H as needed for pain 42 7 February 04, 2022 June 08, 2023 2:00pm pseudoephedrine hydrochloride 30 mg oral tablet (4 [...] Date Episodic/Chronic Acute and unspecified renal failure (2 sources) Prerenal azotemia; Translations: [Unspecified kidney failure] 11-20-2024 Chronic Acute and unspecified renal failure (7 sources) Acute renal failure syndrome; Translations: [Acute kidney failure, unspecified] 02-04-2019 Episodic Coagulation and hemorrhagic disorders (7 sources) Platelet count below reference range; Translations: [Thrombocytopenia, unspecified] 02-04-2019 Chronic Deficiency and other anemia (6 sources) Anemia; Translations: [Anemia, unspecified] 11-06-2024 Episodic Deficiency and other anemia (1 source) Anemia, unspecified; Translations: [Anemia, unspecified] Onset: 11-19-2024 Episodic Deficiency and other anemia (2 sources) Iron deficiency anemia; Translations: [Iron deficiency anemia, unspecified] 11-20-2024 Episodic Diabetes mellitus without complication (2 sources) Non-diabetic hyperglycemia; Translations: [Hyperglycemia, unspecified] 11-20-2024 Episodic Diseases of white blood cells (9 sources) Leukopenia; Translations: [Decreased white blood cell count, unspecified] 02-04-2019 Chronic Comment on above: Likely secondary to Bactrim E Codes: Adverse effects of medical drugs (7 sources) Adverse reaction to drug; Translations: [Adverse effect of unspecified drugs, medicaments and biological substances, initial encounter] 02-04-2019 Episodic Comment on above: Leukopenia and throm bocytopenia suspected to be secondary to Bactrim Fluid and electrolyte disorders (20 sources) Hyponatremia; Translations: [Hypo-osmolality and hyponatremia] Onset: 11-18-2024 02-04-2019 Episodic Fracture of upper limb (16 sources) Multiple fractures of forearm; Translations: [Unspecified fracture of left forearm, initial encounter for closed fracture] 02-06-2022 Episodic Headache; including migraine (7 sources) Migraine; Translations: [Migraine, unspecified, not intractable, without status migrainosus] 02-04-2019 Chronic Comment on above: pt has self diagnose d herself HIV infection (6 sources) Human immunodeficiency virus infection; Translations: [Asymptomatic human immunodeficiency virus [HIV] infection status] Onset: 11-18-2024 11-07-2024 Chronic Open wounds of extremities (20 sources) Cat bite - wound; Translations: [Open bite of unspecified finger without damage to nail, initial encounter] 02-05-2019 Episodic Other circulatory disease (6 sources) Low blood pressure; Translations: [Hypotension, unspecified] 11-06-2024 Episodic Other circulatory disease (1 source) Hypotension, unspecified; Translations: [Hypotension, unspecified] Onset: 11-18-2024 Episodic Other injuries and conditions due to external causes (7 sources) Puncture wound - injury; Translations: [Other injury of unspecified body region, initial encounter] 11-06-2016 Episodic Other lower respiratory disease (8 sources) Interstitial pneumonia; Translations: [Interstitial pulmonary disease, unspecified] 11-06-2024 Chronic Other lower respiratory disease (2 sources) Interstitial pulmonary disease, unspecified; Translations: [Interstitial pulmonary disease, unspecified] Onset: 11-18-2024 Chronic Other lower respiratory disease (1 source) Cough; Translations: [Acute cough] 01-15-2024 Episodic Other lower respiratory disease (1 source) Wheezing; Translations: [Wheezing] 01-15-2024 Episodic Other lower respiratory disease (8 sources) Hypoxia; Translations: [Hypoxemia] 11-06-2024 Episodic Other lower respiratory disease (1 source) Hypoxemia; Translations: [Hypoxemia] Onset: 11-18-2024 Episodic Other non-traumatic joint disorders (1 source) Pain in right shoulder; Translations: [Pain in joint, shoulder region] 01-28-2021 Episodic Other upper respiratory infections (1 source) Sore throat symptom; Translations: [Acute pharyngitis, unspecified] 01-15-2024 Episodic Otitis media and related conditions (2 sources) Acute right otitis media; Translations: [Otitis media, unspecified, right ear] 04-23-2023 Episodic Residual codes; unclassified (6 sources) Rigor; Translations: [Other general symptoms and signs] 11-06-2024 Episodic Septicemia (except in labor) (11 sources) Sepsis; Translations: [Sepsis, unspecified organism] 02-04-2019 Episodic Sprains and strains (7 sources) Injury of wrist; Translations: [Strain of unspecified muscle, fascia and tendon at wrist and hand level, left hand, initial encounter] 06-08-2023 Episodic Substance-related disorders (11 sources) Tobacco dependence syndrome; Translations: [Nicotine dependence, unspecified, uncomplicated] Onset: 03-25-2014 02-04-2019 Chronic Superficial injury; contusion (8 sources) Cat scratch injury; Translations: [Abrasion of left forearm, initial encounter] 02-05-2019 Episodic Urinary tract infections (7 sources) Pyelonephritis; Translations: [Tubulo-interstitial nephritis, not specified as acute or chronic] 02-04-2019 Episodic Results Test Name Value Interpretation Reference Range Facility Absolute lymphocyte countOrd ered By: ED PROVIDER on 11-20-2024 Lymphocytes Auto (Unsp spec) [#/Vol] 0.16 10*3/uL Low 0.83-4.51 [facility] Absolute neutrophil countOrd ered By: ED PROVIDER on 11-20-2024 Neutrophils (Bld) [#/Vol] 2.8 10*3/uL 2.0-7.7 [facility] Anion gap in Serum or Plasma Ordered By: Parish Frias on 11-20-2024 Anion gap [Moles/Vol] 14 mmol/L 5-15 [facility] Automated lymphocyte count a s percentage of total leukocytesOrdered By: ED PROVIDER on 11-20-2024 Lymphocytes/100 WBC Auto (Unsp spec) 4.9 % Low 19-41 [facility] BUN/creatinine ratioOrdered By: Parish Frias on 11-20-2024 Urea nitrogen/Creatinine [Mass ratio] 22.6 mg/mg High 10-20 [facility] Basophil percentageOrdered B y: ED PROVIDER on 11-20-2024 Basophils/100 WBC (Bld) 0.3 % 0-1 [facility] Blood manual differential co mment interpretation (narrative result)Ordered By: Parish Frias on 11-20-2024 Manual differential comment Gerardo (Bld) [Interp] COMMENT [facility] Comment on above: LYMPHOPENIA. Carbon dioxide, total [Moles /volume] in Central venous bloodOrdered By: Parish Frias on 11-20-2024 CO2 [Moles/Vol] 19.8 mmol/L Low 21.0-32.0 [facility] Chloride assayOrdered By: Kip Frias on 11-20-2024 Chloride [Moles/Vol] 97 mmol/L Low 98-108 [facility] Eosinophil percentageOrdered By: ED PROVIDER on 11-20-2024 Eosinophils/100 WBC (Bld) 6.4 % High 0-5 [facility] Erythrocyte distribution wid th ratioOrdered By: ED PROVIDER on 11-20-2024 Erythrocyte distribution width (RBC) [Ratio] 15.8 % High 11.6-14.6 [facility] Erythrocyte distribution wid th standard deviationOrdered By: ED PROVIDER on 11-20-2024 Erythrocyte distribution width (RBC) [Ratio] 49.8 fl High 35.1-43.9 [facility] Glomerular filtration rate ( GFR) estimation/1.73 sq m using serum, plasma, or whole bOrdered By: Parish Frias on 11-20-2024 GFR/1.73 sq M.predicted among non-blacks MDRD (S/P/Bld) [Vol rate/Area] 75 mL/min/{1.73_m2} >60 [facility] Comment on above: mL/min/1.73m2 CKD-EP I Creatinine Equation (2020) Hematocrit Auto (Bld) [Volum e fraction]Ordered By: ED PROVIDER on 11-20-2024 Hematocrit (Bld) [Volume fraction] 25.2 % Low 37-47 [facility] Hemoglobin measurementOrdere d By: ED PROVIDER on 11-20-2024 Hemoglobin (Bld) [Mass/Vol] 8.6 g/dL Low 12.0-15. 0 [facility] Immature granulocytes/100 WB C Auto (Bld)Ordered By: ED PROVIDER on 11-20-2024 Immature granulocytes/100 WBC (Bld) 0.600 % 0.0-0.9 [facility] Comment on above: IG% - Immature Granu locytes (promyelocytes, myelocytes and metamyelocytes) > 1% indicates that a LEFT SHIFT is Present. Lactate dehydrogenase (LDH) measurementOrdered By: Parish Frias on 11-20-2024 LDH [Catalytic activity/Vol] 648 U/L High 84-246 [facility] Lactic acid measurementOrder ed By: Parish Frias on 11-20-2024 Lactate [Moles/Vol] 1.9 mmol/L 0.0-2.0 [facility] MCV (mean corpuscular volume ) determinationOrdered By: ED PROVIDER on 11-20-2024 MCV (RBC) [Entitic vol] 86.6 fL 81-99 [facility] Magnesium measurement (mass/ volume)Ordered By: Cody Martínez on 11-20-2024 Magnesium (Unsp spec) [Mass/Vol] 1.7 mg/dL 1.5-2.2 [facility] Mean corpuscular hemoglobin (MCH) determinationOrdered By: ED PROVIDER on 11-20-2024 MCH (RBC) [Entitic mass] 29.6 pg 27.0-32.0 [facility] Mean corpuscular hemoglobin concentration (MCHC) determinationOrdered By: ED PROVIDER on 11-20-2024 MCHC (RBC) [Mass/Vol] 34.1 g/dL 32-36 [facility] Mean platelet volume determi nationOrdered By: ED PROVIDER on 11-20-2024 Platelet mean volume (Bld) [Entitic vol] 10.5 fL 6.2-12.0 [facility] Monocyte percentageOrdered B y: ED PROVIDER on 11-20-2024 Monocytes/100 WBC (Bld) 3.1 % 0-10 [facility] Neutrophil percentageOrdered By: ED PROVIDER on 11-20-2024 Neutrophils/100 WBC (Bld) 84.7 % High 47-70 [facility] Nucleated red blood cell per centageOrdered By: ED PROVIDER on 11-20-2024 Nucleated RBC/100 WBC (Bld) [Ratio] 0 % 0-5 [facility] Platelet countOrdered By: ED PROVIDER on 11-20-2024 Platelets (Bld) [#/Vol] 228 10*3/uL 150-450 [facility] Potassium measurement (mass/ volume)Ordered By: Parish Frias on 11-20-2024 Potassium (Unsp spec) [Mass/Vol] 2.9 mmol/L Low 3.3-5.1 [facility] RBC Auto (Bld) [#/Vol]Ordere d By: ED PROVIDER on 11-20-2024 RBC (Bld) [#/Vol] 2.91 10*6/uL Low 4.2-5.4 [facility] Serum creatinine measurement (mass/volume)Ordered By: Parish Frias on 11-20-2024 Creatinine [Mass/Vol] 0.98 mg/dL 0.70-1.20 [facility] Serum glucose measurement (m ass/volume)Ordered By: Parish Frias on 11-20-2024 Glucose [Mass/Vol] 134 mg/dL High 70-99 [facility] Serum or plasma calcium eula urement (mass/volume)Ordered By: Parish Frias on 11-20-2024 Calcium [Mass/Vol] 9.3 mg/dL 7.6-11.0 [facility] Serum or plasma urea nitroge n measurement (mass/volume)Ordered By: Parish Frias on 11-20-2024 Urea nitrogen [Mass/Vol] 22 mg/dL High 4-19 [facility] Sodium levelOrdered By: Parish Frias on 11-20-2024 Sodium [Moles/Vol] 132 mmol/L Low 133-145 [facility] White blood cell (WBC) count Ordered By: ED PROVIDER on 11-20-2024 WBC (Bld) [#/Vol] 3.3 10*3/uL Low 4.4-11.0 [facility] Absolute lymphocyte countOrd ered By: Tia Hudson on 11-19-2024 Lymphocytes Auto (Unsp spec) [#/Vol] 0.47 10*3/uL Low 0.83-4.51 [facility] Absolute neutrophil countOrd ered By: Tia Hudson on 11-19-2024 Neutrophils (Bld) [#/Vol] 4.2 10*3/uL 2.0-7.7 [facility] Anion gap in Serum or Plasma Ordered By: Tia Hudson on 11-19-2024 Anion gap [Moles/Vol] 17 mmol/L High 5-15 [facility] Automated lymphocyte count a s percentage of total leukocytesOrdered By: Tia Hudson on 11-19-2024 Lymphocytes/100 WBC Auto (Unsp spec) 9.2 % Low 19-41 [facility] BUN/creatinine ratioOrdered By: Tia Hudson on 11-19-2024 Urea nitrogen/Creatinine [Mass ratio] 16.7 mg/mg 10-20 [facility] Basophil percentageOrdered B y: Tia Hudson on 11-19-2024 Basophils/100 WBC (Bld) 0.4 % 0-1 [facility] Bilirubin, totalOrdered By: Tia Hudson on 11-19-2024 Bilirubin [Mass/Vol] 0.55 mg/dL 0.00-1.30 [facility] Blood manual differential co mment interpretation (narrative result)Ordered By: Tia Hudson on 11-19-2024 Manual differential comment Gerardo (Bld) [Interp] SCANNED [facility] Blood polychromasia detectio n by light microscopyOrdered By: Tia Hudson on 11-19-2024 Polychromasia LM Ql (Bld) 1+ [facility] Carbon dioxide, total [Moles /volume] in Central venous bloodOrdered By: Tia Hudson on 11-19-2024 CO2 [Moles/Vol] 18.6 mmol/L Low 21.0-32.0 [facility] Chloride assayOrdered By: Jailyn Hudson on 11-19-2024 Chloride [Moles/Vol] 96 mmol/L Low 98-108 [facility] Eosinophil percentageOrdered By: Tia Hudson on 11-19-2024 Eosinophils/100 WBC (Bld) 2.5 % 0-5 [facility] Erythrocyte distribution wid th ratioOrdered By: Tia Hudson on 11-19-2024 Erythrocyte distribution width (RBC) [Ratio] 15.7 % High 11.6-14.6 [facility] Erythrocyte distribution wid th standard deviationOrdered By: Tiajasmin Hudson on 11-19-2024 Erythrocyte distribution width (RBC) [Ratio] 49.9 fl High 35.1-43.9 [facility] Glomerular filtration rate ( GFR) estimation/1.73 sq m using serum, plasma, or whole bOrdered By: Tia Hudson on 11-19-2024 GFR/1.73 sq M.predicted among non-blacks MDRD (S/P/Bld) [Vol rate/Area] 63 mL/min/{1.73_m2} >60 [facility] Comment on above: mL/min/1.73m2 CKD-EP I Creatinine Equation (2020) Hematocrit Auto (Bld) [Volum e fraction]Ordered By: Tia Hudson on 11-19-2024 Hematocrit (Bld) [Volume fraction] 25.3 % Low 37-47 [facility] Hemoglobin measurementOrdere d By: Tia Hudson on 11-19-2024 Hemoglobin (Bld) [Mass/Vol] 8.4 g/dL Low 12.0-15. 0 [facility] Immature granulocytes/100 WB C Auto (Bld)Ordered By: Tia Hudson on 11-19-2024 Immature granulocytes/100 WBC (Bld) 0.400 % 0.0-0.9 [facility] Comment on above: IG% - Immature Granu locytes (promyelocytes, myelocytes and metamyelocytes) > 1% indicates that a LEFT SHIFT is Present. Iron measurement (mass/mass) Ordered By: Tia Hudson on 11-19-2024 Iron (Unsp spec) [Mass/Mass] 14 ug/dL Low 50-170 [facility] - Chemistry and C hemistry - challengeOrdered By: Tia Hudson on 11-19-2024 AST [Catalytic activity/Vol] 35 U/L High <32 [facility] - Hematology and Cell countsOrdered By: Tia Hudson on 11-19-2024 Anisocytosis Ql (Bld) 1+ [facility] MCV (mean corpuscular volume ) determinationOrdered By: Tia Hudson on 11-19-2024 MCV (RBC) [Entitic vol] 87.8 fL 81-99 [facility] Mean corpuscular hemoglobin (MCH) determinationOrdered By: Tia Hudson on 11-19-2024 MCH (RBC) [Entitic mass] 29.2 pg 27.0-32.0 [facility] Mean corpuscular hemoglobin concentration (MCHC) determinationOrdered By: Tia Hudson on 11-19-2024 MCHC (RBC) [Mass/Vol] 33.2 g/dL 32-36 [facility] Mean platelet volume determi nationOrdered By: Tia Hudson on 11-19-2024 Platelet mean volume (Bld) [Entitic vol] 11.3 fL 6.2-12.0 [facility] Monocyte percentageOrdered B y: Tia Hudson on 11-19-2024 Monocytes/100 WBC (Bld) 5.1 % 0-10 [facility] Neutrophil percentageOrdered By: Tia Hudson on 11-19-2024 Neutrophils/100 WBC (Bld) 82.4 % High 47-70 [facility] No Panel InformationOrdered By: Tia Hudson on 11-19-2024 Unsaturated Iron Binding Capacity 209 ug/dL Low 228-428 [facility] Nucleated red blood cell per centageOrdered By: Tia Hudson on 11-19-2024 Nucleated RBC/100 WBC (Bld) [Ratio] 0 % 0-5 [facility] Platelet countOrdered By: Jailyn Hudson on 11-19-2024 Platelets (Bld) [#/Vol] 244 10*3/uL 150-450 [facility] Platelet estimateOrdered By: Tia Hudson on 11-19-2024 Platelets LM Ql (Bld) ADEQUATE ADEQ [facility] Potassium measurement (mass/ volume)Ordered By: Tia Hudson on 11-19-2024 Potassium (Unsp spec) [Mass/Vol] 3.2 mmol/L Low 3.3-5.1 [facility] RBC Auto (Bld) [#/Vol]Ordere d By: Tia Hudson on 11-19-2024 RBC (Bld) [#/Vol] 2.88 10*6/uL Low 4.2-5.4 [facility] Serum creatinine measurement (mass/volume)Ordered By: Tia Hudson on 11-19-2024 Creatinine [Mass/Vol] 1.13 mg/dL 0.70-1.20 [facility] Serum globulin measurementOr dered By: Tia Hudson on 11-19-2024 Globulin (S) [Mass/Vol] 3.2 g/dL 2.2-4.2 [facility] Serum glucose measurement (m ass/volume)Ordered By: Tia Hudson on 11-19-2024 Glucose [Mass/Vol] 113 mg/dL High 70-99 [facility] Serum or plasma alanine foss otransferase (ALT) measurementOrdered By: Tia Hudson on 11-19-2024 ALT [Catalytic activity/Vol] 18 U/L <35 [facility] Serum or plasma albumin eula urement (mass/volume)Ordered By: Tia Hudson on 11-19-2024 Albumin [Mass/Vol] 3.2 g/dL Low 3.5-5.0 [facility] Serum or plasma albumin/glob ulin mass ratioOrdered By: Tia Hudson on 11-19-2024 Albumin/Globulin [Mass ratio] 1.0 {ratio} 0.9-2.4 [facility] Serum or plasma alkaline aida sphatase measurementOrdered By: Tia Hudson 11-19-2024 ALP [Catalytic activity/Vol] 262 U/L High 35-104 [facility] Serum or plasma calcium eula urement (mass/volume)Ordered By: Tia Hudson on 11-19-2024 Calcium [Mass/Vol] 9.4 mg/dL 7.6-11.0 [facility] Serum or plasma ferritin hyun surement (mass/volume)Ordered By: Tia Hudson on 11-19-2024 Ferritin [Mass/Vol] 771 ng/mL High 22-378 [facility] Serum or plasma iron saturat ion measurement (mass fraction)Ordered By: Tia Hudson on 11-19-2024 Iron saturation [Mass fraction] 6.0 % Low 13-59 [facility] Comment on above: Previous reported re sult: 6.0 %Edited by: KYRA on 11/19/24:192 Serum or plasma urea nitroge n measurement (mass/volume)Ordered By: Tia Hudson on 11-19-2024 Urea nitrogen [Mass/Vol] 19 mg/dL 4-19 [facility] Sodium levelOrdered By: Tylor Hudson on 11-19-2024 Sodium [Moles/Vol] 131 mmol/L Low 133-145 [facility] Total proteinOrdered By: Raymond Hudson on 11-19-2024 Protein [Mass/Vol] 6.5 g/dL 5.9-8.4 [facility] White blood cell (WBC) count Ordered By: Tia Hudson on 11-19-2024 WBC (Bld) [#/Vol] 5.1 10*3/uL 4.4-11.0 [facility] L3410.9992on 11-15-2024 [facility] Misc. COMMENT Normal . [facility] Comment on above: Order Comment: Reaso n for Exam: transaminitis Result Comment: Test Ordered: 023084 GenoSure(R) MG Test(s) 403864-EWL GenoSure(R) MG; 587790- HIV GenoSure(R) MG was developed and its performance characteristics determined by [facility]. It has not been cleared or approved by the Food and Drug Administration. HIV GenoSure(R) MG Comment BN Reference Range: . Lalito gene amplicon adequate for sequencing HIV GenoSure(R) MG Comment INTL9 Reference Range: . The HIV-1 GenoSure(R) MG for this specimen has been completed. Performed at: BN - [address] [id number] Joint Creaser: Kendrick Lubin MD, Phone: [phone] Performed at: INTL9 - [employer] [address] [place] [address], [place] [id number] Joint Creaser: Maylin Alfred MD, Phone: [phone] Performed at: [address] [id number] Joint Creaser: Cullen Lema PhD, Phone: [phone] Performed By: #### L 3890.6102, L3400.8500, L509.8002, L3890.6202, L3100.0300, L3890.6301, L3400.8000, L504.2610, L3100.5850, L3890.4000 #### [facility] [address] [place], [address] Body Fluid Cell Count+Diffon 11-12-2024 PATH COMM/BF Reviewed Normal [facility] Comment on above: Order Comment: Reaso n for Exam: transaminitis Result Comment: NEUT ROPHILS - 80 LYMPHOCYTES - 2 MONOCYTES - 2 SQUAMOUS - 12 NO MALIGNANT CELLS IDENTIFIED. MANY CELLS ARE DEGENERATIVE, LIMITING THE DIFFERENTIAL CELL COUNT. Shana Terrazas MD 11/12/2024 AMENDED REPORT 11/12/24 1114 PATH COMM/BF previously reported as: May follow Performed By: #### L 3890.6102, L3400.8500, L509.8002, L3890.6202, L3100.0300, L3890.6301, L3400.8000, L504.2610, L3100.5850, L3890.4000 #### [facility] [address] [place], [place], [id number] Culture, Blood (WB)on 2024 CUB Blood cultures x2, from two different sites No growth in 5 days. Normal [facility] Comment on above: Performed By: #### L 3890.6102, L3400.8500, L509.8002, L3890.6202, L3100.0300, L3890.6301, L3400.8000, L504.2610, L3100.5850, L3890.4000 #### [facility] [address] [place], [address] CUB No growth in 5 days. Normal [facility] Comment on above: Performed By: #### L 3890.6102, L3400.8500, L509.8002, L3890.6202, L3100.0300, L3890.6301, L3400.8000, L504.2610, L3100.5850, L3890.4000 #### [facility] [address] [place], [address] L3410.9992on 11-12-2024 [facility]. COMMENT Normal . [facility] Comment on above: Order Comment: Reaso n for Exam: transaminitis Result Comment: Test Ordered: [id number] Histoplasma Gal'jackie Ag Ur Histoplasma Gal'jackie Ag Ur Negative BN Reference Range: <0.2 ng/mL Performed at: BN - [facility] [id number] Joint Creaser: Kendrick Lubin MD, Phone: [phone] Performed at: - [facility] [id number] Joint Creaser: Cullen Lema PhD, Phone: [phone] Performed By: #### L 3890.6102, L3400.8500, L509.8002, L3890.6202, L3100.0300, L3890.6301, L3400.8000, L504.2610, L3100.5850, L3890.4000 #### [facility] [address] [place], [address] CD4, T Lymph Finley Counton 11-11-2024 % CD4 POS.LYMPH 11.8 Low 30.8-58.5 [facility] Comment on above: Performed By: #### L 3890.0200 ####[facility] [address] [place], [address] ABSOLUTE CD4 47 /uL Low 359-1519 [facility] Comment on above: Performed By: #### L 3890.0200 ####[facility] [address] [place], [address] Basophils 0 Normal Not Estab. [facility] Comment on above: Performed By: #### L 3890.0200 ####[facility] [address] [place], [address] Basos Absolute 0 x10E3/uL Normal 0.0-0.2 [facility] Comment on above: Performed By: #### L 3890.0200 ####[facility] [address] [place], [address] Eos Absolute 0 x10E3/uL Normal 0.0-0.4 [facility] Comment on above: Performed By: #### L 3890.0200 ####[facility] [address] [place], [address] Eosinophils 0 Normal Not Estab. [facility] Comment on above: Performed By: #### L 3890.0200 ####[facility] [address] [place], [address] Erythrocyte distribution width (RBC) [Ratio] 15.8 % High 11.7-15.4 [facility] Comment on above: Performed By: #### L 3890.0200 ####[facility] [address] [place], [address] Hematocrit (Bld) [Volume fraction] 28.7 % Low 34.0-46.6 [facility] Comment on above: Performed By: #### L 3890.0200 ####[facility] [address] [place], [address] Hemoglobin (Bld) [Mass/Vol] 8.6 g/dL Low 11.1-15. 9 [facility] Comment on above: Performed By: #### L 3890.0200 ####[facility] [address] [place], [address] Imm Grans Abs 0 x10E3/uL Normal 0.0-0.1 [facility] Comment on above: Performed By: #### L 3890.0200 ####[facility] [address] [place], [address] Immature Cells TNP Normal . [facility] Comment on above: Performed By: #### L 3890.0200 ####[facility] [address] [place], [address] Immature Grans 1 Normal Not Estab. [facility] Comment on above: Performed By: #### L 3890.0200 ####[facility] [address] [place], [address] Lymphocytes 4 Normal Not Estab. [facility] Comment on above: Performed By: #### L 3890.0200 ####[facility] [address] [place], [address] Lymphocytes (Bld) [#/Vol] 0.4 10*3/uL Low 0.7-3.1 [facility] Comment on above: Performed By: #### L 3890.0200 ####[facility] [address] [place], [address] MCH (RBC) [Entitic mass] 29.5 pg Normal 26.6-33.0 [facility] Comment on above: Performed By: #### L 3890.0200 ####[facility] [address] [place], [address] MCHC (RBC) [Mass/Vol] 30.0 g/dL Low 31.5-35.7 [facility] Comment on above: Performed By: #### L 3890.0200 ####[facility] [address] [place], [address] MCV (RBC) [Entitic vol] 98 fL High 79-97 [facility] Comment on above: Performed By: #### L 3890.0200 ####[facility] [address] [place], [address] Monocytes 3 Normal Not Estab. [facility] Comment on above: Performed By: #### L 3890.0200 ####[facility] [address] [place], [address] Monos Absolute 0.2 x10E3/uL Normal 0.1-0.9 [facility] Comment on above: Performed By: #### L 3890.0200 ####[facility] [address] [place], [address] Neutro Absolute 7.9 x10E3/uL High 1.4-7.0 [facility] Comment on above: Performed By: #### L 3890.0200 ####[facility] [address] [place], [address] Neutrophils 92 Normal Not Estab. [facility] Comment on above: Performed By: #### L 3890.0200 ####[facility] [address] [place], [address] NRBC Count TNP Normal . [facility] Comment on above: Performed By: #### L 3890.0200 ####[facility] [address] [place], [address] Platelets (Bld) [#/Vol] 134 10*3/uL Low 150-450 [facility] Comment on above: Performed By: #### L 3890.0200 ####[facility] [address] [place], [address] RBC (Bld) [#/Vol] 2.92 10*6/uL Low 3.77-5.28 [facility] Comment on above: Performed By: #### L 3890.0200 ####[facility] [address] [place], [place], [address] WBC (Bld) [#/Vol] 8.5 10*3/uL Normal 3.4-10.8 [facility] Comment on above: Performed By: #### L 3890.0200 ####[facility] [address] [place], [place], [address] Cryptococcus Ag, Serumon Crypto.Ag,TITER TNP Normal [facility] Comment on above: Performed By: #### L 3890.6102, L3400.8500, L509.8002, L3890.6202, L3100.0300, L3890.6301, L3400.8000, L504.2610, L3100.5850, L3890.4000 #### [facility] [address] [place], [address] EBV Acute Prof IgG / IgMon 0 11-11-2024 EB Ab VCA, IgG > 600.0 High 0.0-17.9 [facility] Comment on above: Order Comment: Comme nts: urine Result Comment: Nega tive <18.0 Equivocal 18.0 - 21.9 Positive >21.9 Performed By: #### L 3890.6102, L3400.8500, L509.8002, L3890.6202, L3100.0300, L3890.6301, L3400.8000, L504.2610, L3100.5850, L3890.4000 ####[facility] [address] [place], [place], [address] EBV Ab VCA, IgM < 36.0 Normal 0.0-35.9 [facility] Comment on above: Order Comment: Comme nts: urine Result Comment: Nega tive <36.0 Equivocal 36.0 - 43.9 Positive >43.9 Performed By: #### L 3890.6102, L3400.8500, L509.8002, L3890.6202, L3100.0300, L3890.6301, L3400.8000, L504.2610, L3100.5850, L3890.4000 ####[facility] [address] [place], [place], [address] EBV NuAg Ab,IgG 139.0 U/mL High 0.0-17.9 [facility] Comment on above: Order Comment: Comme nts: urine Result Comment: Nega tive <18.0 Equivocal 18.0 - 21.9 Positive >21.9 Performed By: #### L 3890.6102, L3400.8500, L509.8002, L3890.6202, L3100.0300, L3890.6301, L3400.8000, L504.2610, L3100.5850, L3890.4000 ####[facility] [address] [place], [address] INTERPRETATION Comment Normal . [facility] Comment on above: Order Comment: Comme nts: urine Result Comment: EBV Interpretation Chart Lang: Antibody Present + Antibody Absent - Interpretation VCA-IgM VCA-IgG EBNA-IgG No previous infection/ - - - Susceptible Primary infection (new + + - or recent) Past Infection +or- + + See comment below* + - - *Results indicate infection with EBV at some time however cannot predict the timing of the infection since antibodies to EBNA usually develop after primary infection or, alternatively, approximately 5-10% of patients with EBV never develop antibodies to EBNA. Performed By: #### L 3890.6102, L3400.8500, L509.8002, L3890.6202, L3100.0300, L3890.6301, L3400.8000, L504.2610, L3100.5850, L3890.4000 ####[facility] [address] [place], [address] Gram Stainon 11-11-2024 GS Acceptable Specimen? Yes (<25 Epithelial cells per/lpf) Gram Stain Rare Gram positive cocci 2+ White Blood Cells Normal [facility] Comment on above: Performed By: #### L 3890.6102, L3400.8500, L509.8002, L3890.6202, L3100.0300, L3890.6301, L3400.8000, L504.2610, L3100.5850, L3890.4000 #### [facility] [address] [facility] [place], [place], [address] GS UNK UNK Acceptable Specimen? Yes (<25 Epithelial cells per/lpf) Gram Stain 2+ White Blood Cells Rare Gram positive cocci 1+ Epithelial cells Normal [facility] Comment on above: Performed By: #### L 3890.6102, L3400.8500, L509.8002, L3890.6202, L3100.0300, L3890.6301, L3400.8000, L504.2610, L3100.5850, L3890.4000 #### [facility] [address] [facility] [address] [place], [place], [address] HIV Viral Load Quanton 11-11 HIV-1 RNA, PCR 737984 copies/mL Normal . [facility] Comment on above: Result Comment: The reportable range for this assay is 20 to 10,000,000 copies HIV-1 RNA/mL. Performed By: #### L 3890.6102, L3400.8500, L509.8002, L3890.6202, L3100.0300, L3890.6301, L3400.8000, L504.2610, L3100.5850, L3890.4000 #### [facility] [address] [place], [place], [address] log10 HIV-1 RNA 5.883 Normal . [facility] Comment on above: Result Comment: Resu lt Units: nwx08tpwg/mL Performed at: [address] [id number] Joint Creaser: Kendrick Lubin MD, Phone: [phone] Performed By: #### L 3890.6102, L3400.8500, L509.8002, L3890.6202, L3100.0300, L3890.6301, L3400.8000, L504.2610, L3100.5850, L3890.4000 #### [facility] [address] [place], [place], [address] Hepatitis A AB, Totalon 06- HEPATITIS A,TOT Negative Normal Negative [facility] Comment on above: Order Comment: Comme nts: urine Result Comment: Comm ent: The HAV total antibody assay detects both IgG and IgM but does not differentiate between them. A negative result suggests susceptibility to infection. A positive result could be due to vaccination, previously resolved infection or active infection. Testing for HAV IgM should be performed if active HAV infection is suspected. [employer] offers profiles that will automatically reflex positive HAV total antibody results to IgM (e.g., panel #[id number] HAV Antibody w/ Rfx). Performed at: [address] [id number] Joint Creaser: Cullen Lema PhD, Phone: [phone] Performed at: [address] [id number] Joint Creaser: Kendrick Lubin MD, Phone: [phone] Performed By: #### L 3890.6102, L3400.8500, L509.8002, L3890.6202, L3100.0300, L3890.6301, L3400.8000, L504.2610, L3100.5850, L3890.4000 #### [facility] [address] [place], [place], [address] L3400.8500on 11-11-2024 CMV Quant DNA 2700 IU/mL Normal Negative [facility] Comment on above: Order Comment: Comme nts: urine Result Comment: The quantitative range of this assay is 200 to 1 million IU/mL. Performed By: #### L 3890.6102, L3400.8500, L509.8002, L3890.6202, L3100.0300, L3890.6301, L3400.8000, L504.2610, L3100.5850, L3890.4000 ####[facility] [address] [place], [address] CMV Quant DNA 3.431 Normal . [facility] Comment on above: Order Comment: Comme nts: urine Result Comment: Resu lt Units: log10 IU/mL Performed By: #### L 3890.6102, L3400.8500, L509.8002, L3890.6202, L3100.0300, L3890.6301, L3400.8000, L504.2610, L3100.5850, L3890.4000 ####[facility] [address] [place], [place], [address] Quantiferon TB-Gold+on 11-11 QFT MITOGEN DAMI 1.35 IU/mL Normal . [facility] Comment on above: Order Comment: Comme nts: urine Performed By: #### L 3890.6102, L3400.8500, L509.8002, L3890.6202, L3100.0300, L3890.6301, L3400.8000, L504.2610, L3100.5850, L3890.4000 ####[facility] [address] [place], [place], [address] QFT NIL VALUE 0.04 IU/mL Normal . [facility] Comment on above: Order Comment: Comme nts: urine Performed By: #### L 3890.6102, L3400.8500, L509.8002, L3890.6202, L3100.0300, L3890.6301, L3400.8000, L504.2610, L3100.5850, L3890.4000 ####[facility] [address] [place], [address] QFT TB GOLD+ Comment Normal . [facility] Comment on above: Order Comment: Comme nts: urine Result Comment: Segundo tiFERON-TB Gold Plus is a qualitative indirect test for M tuberculosis infection (including disease) and is intended for use in conjunction with risk assessment, radiography, and other medical and diagnostic evaluations. The QuantiFERON-TB Gold Plus result is determined by subtracting the Nil value from either TB antigen (Ag) value. The Mitogen tube serves as a control for the test. Performed By: #### L 3890.6102, L3400.8500, L509.8002, L3890.6202, L3100.0300, L3890.6301, L3400.8000, L504.2610, L3100.5850, L3890.4000 ####[facility] [address] [place], [place], [address] QFT TB POS CRIT Negative Normal Negative [facility] Comment on above: Order Comment: Comme nts: urine Result Comment: No r esponse to M tuberculosis antigens detected. Infection with M tuberculosis is unlikely, but high risk individuals should be considered for additional testing (ATS/IDSA/CDC Clinical Practice Guidelines, 2017). The reference range is an Antigen minus Nil result of <0.35 IU/mL. The specimen received for QuantiFERON testing was incubated by the ordering institution. Specific procedures outlined in our Directory of Services and in the package insert for the QuantiFERON Gold (In Tube) test must be followed to enable for proper stimulation of cells for the production of interferon gamma. Chemiluminescence immunoassay methodology Performed By: #### L 3890.6102, L3400.8500, L509.8002, L3890.6202, L3100.0300, L3890.6301, L3400.8000, L504.2610, L3100.5850, L3890.4000 ####[facility] [address] [place], [address] QFT TB1+ AG DAMI 0.04 IU/mL Normal . [facility] Comment on above: Order Comment: Comme nts: urine Performed By: #### L 3890.6102, L3400.8500, L509.8002, L3890.6202, L3100.0300, L3890.6301, L3400.8000, L504.2610, L3100.5850, L3890.4000 ####[facility] [address] [facility] [place], [address] QFT TB2+ AG DAMI 0.05 IU/mL Normal . [facility] Comment on above: Order Comment: Comme nts: urine Performed By: #### L 3890.6102, L3400.8500, L509.8002, L3890.6202, L3100.0300, L3890.6301, L3400.8000, L504.2610, L3100.5850, L3890.4000 ####[facility] [address] [place], [address] Respiratory Cultureon 2024 RESPC Mixed normal respiratory marques. No Streptococcus pneumoniae, beta-hemolytic Streptococcus or Staphylococcus aureus isolated. Presumptive C albicans Amount Growth Very Rare Normal [facility] Comment on above: Performed By: #### L 3890.6102, L3400.8500, L509.8002, L3890.6202, L3100.0300, L3890.6301, L3400.8000, L504.2610, L3100.5850, L3890.4000 #### [facility] [address] [place], [address] ANCAon 11-09-2024 Atypical pANCA <1:20 Normal Neg:<1:20 [facility] Comment on above: Result Comment: The atypical pANCA pattern has been observed in a significant percentage of patients with ulcerative colitis, primary sclerosing cholangitis and autoimmune hepatitis. Performed at: [address] [id number] Joint Creaser: Cullen Lema PhD, Phone: [phone] Performed By: #### L 3890.6102, L3400.8500, L509.8002, L3890.6202, L3100.0300, L3890.6301, L3400.8000, L504.2610, L3100.5850, L3890.4000 #### [facility] [address] [place], [address] Cytoplasmic Ab <1:20 Normal Neg:<1:20 [facility] Comment on above: Performed By: #### L 3890.6102, L3400.8500, L509.8002, L3890.6202, L3100.0300, L3890.6301, L3400.8000, L504.2610, L3100.5850, L3890.4000 #### [facility] [address] [place], [address] Perinuclear Ab. <1:20 Normal Neg:<1:20 [facility] Comment on above: Result Comment: The presence of positive fluorescence exhibiting P-ANCA or C-ANCA patterns alone is not specific for the diagnosis of Ying's Granulomatosis (WG) or microscopic polyangiitis. Decisions about treatment should not be based solely on ANCA IFA results. The [employer] Consensus recommends follow up testing of positive sera with both PA- 3 and MPO-ANCA enzyme immunoassays. As many as 5% serum samples are positive only by EIA. Ref. AM J Clin Pathol 1999;111:507-513. Performed By: #### L 3890.6102, L3400.8500, L509.8002, L3890.6202, L3100.0300, L3890.6301, L3400.8000, L504.2610, L3100.5850, L3890.4000 #### [facility] [address] [place], [place], [id number] Gram stainOrdered By: Chidi Arellano on 11-09-2024 Microscopic observation Gram stain Nom (Unsp spec) [facility] Microbial respiratory cultur eOrdered By: Chidi Arellano on 11-09-2024 Microorganism identified Cx Nom (Unsp spec) Presumptive C albicans Abnormal [facility] Respiratory Cultureon 2024 RESPC UNK UNK Presumptive C albicans Amount Growth Rare Normal [facility] Comment on above: Performed By: #### L 3890.6102, L3400.8500, L509.8002, L3890.6202, L3100.0300, L3890.6301, L3400.8000, L504.2610, L3100.5850, L3890.4000 #### [facility] [address] [place], [address] 12 Lead EKGon 11-08-2024 12 Lead EKG [facility] Cardi[facility] Services [address] [place] [address] 12 Lead EKG 11/08/24 1016 MR#: [id number] Acct: [id number] Name: ALMA DELIA DOW Rep #: [id number] : 1985 38 From: Joseph Currie MD Attending Dr: Dr. Pb Adams DO Status: DIS IN Ordering Dr: Steven Kiran MD Date: 11/08/24 Location: [facility] Sex: F C Admitted: 11/06/24 Test Reason : PRE OP Blood Pressure : */* mmHG Vent. Rate : 71 BPM Atrial Rate : 71 BPM P-R Int : 146 ms QRS Dur : 90 ms QT Int : 396 ms P-R-T Axes : 64 47 24 degrees QTcB Int : 430 ms Normal sinus rhythm with sinus arrhythmia Normal ECG No previous ECGs available Confirmed by Joseph Currie ([id number]), pictures editor ISAEBLA GAMBOA ([id number]) on 11/11/2024 9:14:09 AM Referred By: JOEL Confirmed By: Joseph Currie 11/11/24913 Date Joseph Currie MD CC: Dr. Steven Kiran MD; Dr. Pb Adams DO; No Primary Care Physician Signed Normal [facility] Absolute CD4 countOrdered By : Chidi Arellano on 11-08-2024 CD3+CD4+ (T4 helper) cells (Bld) [#/Vol] 47 /uL Low 359-1519 [facility] Absolute immature granulocyt e countOrdered By: Chidi Arellano on 11-08-2024 Immature granulocytes (Bld) [#/Vol] 0 10*3/uL 0.0-0.1 [facility] Absolute lymphocyte countOrd ered By: Chidi Arellano on 11-08-2024 Lymphocytes Auto (Unsp spec) [#/Vol] 0.4 10*3/uL Low 0.7-3.1 [facility] Absolute lymphocyte countOrd ered By: Pb Adams on 11-08-2024 Lymphocytes Auto (Unsp spec) [#/Vol] 0.29 10*3/uL Low 0.83-4.51 [facility] Absolute monocyte countOrder ed By: Chidi Arellano on 11-08-2024 Monocytes (Bld) [#/Vol] 0.2 10*3/uL 0.1-0.9 [facility] Absolute neutrophil countOrd ered By: Chidi Arellano on 11-08-2024 Neutrophils (Bld) [#/Vol] 7.9 10*3/uL High 1.4-7.0 [facility] Absolute neutrophil countOrd ered By: Pb Adams on 11-08-2024 Neutrophils (Bld) [#/Vol] 4.7 10*3/uL 2.0-7.7 [facility] Anion gap in Serum or Plasma Ordered By: Pb Adams on 11-08-2024 Anion gap [Moles/Vol] 12 mmol/L 5-15 [facility] Automated lymphocyte count a s percentage of total leukocytesOrdered By: Pb Adams on 11-08-2024 Lymphocytes/100 WBC Auto (Unsp spec) 5.5 % Low 19-41 [facility] BUN/creatinine ratioOrdered By: Pb Adams on 11-08-2024 Urea nitrogen/Creatinine [Mass ratio] 22.5 mg/mg High 10-20 [facility] Basic Metabolic Profile (BMP )on 11-08-2024 BUN/CRE 22.5 RATIO High 10-20 [facility] Comment on above: Performed By: #### L 3890.6102, L3400.8500, L509.8002, L3890.6202, L3100.0300, L3890.6301, L3400.8000, L504.2610, L3100.5850, L3890.4000 #### [facility] [address] [place], [address] Calcium [Mass/Vol] 9.1 mg/dL Normal 7.6-11.0 [facility] Comment on above: Performed By: #### L 3890.6102, L3400.8500, L509.8002, L3890.6202, L3100.0300, L3890.6301, L3400.8000, L504.2610, L3100.5850, L3890.4000 #### [facility] [address] [place], [address] Chloride [Moles/Vol] 109 mmol/L High 98-108 [facility] Comment on above: Performed By: #### L 3890.6102, L3400.8500, L509.8002, L3890.6202, L3100.0300, L3890.6301, L3400.8000, L504.2610, L3100.5850, L3890.4000 #### [facility] [address] [place], [address] CO2 [Moles/Vol] 16.8 mmol/L Low 21.0-32.0 [facility] Comment on above: Performed By: #### L 3890.6102, L3400.8500, L509.8002, L3890.6202, L3100.0300, L3890.6301, L3400.8000, L504.2610, L3100.5850, L3890.4000 #### [facility] [address] [place], [address] Creatinine [Mass/Vol] 0.66 mg/dL Low 0.70-1.20 [facility] Comment on above: Performed By: #### L 3890.6102, L3400.8500, L509.8002, L3890.6202, L3100.0300, L3890.6301, L3400.8000, L504.2610, L3100.5850, L3890.4000 #### [facility] [address] [place], [address] ECRCL 90.53 ml/min Normal 50-250 [facility] Comment on above: Performed By: #### L 3890.6102, L3400.8500, L509.8002, L3890.6202, L3100.0300, L3890.6301, L3400.8000, L504.2610, L3100.5850, L3890.4000 #### [facility] [address] [place], [place], [id number] (342) GAP 12 Normal 5-15 [facility] Comment on above: Performed By: #### L 3890.6102, L3400.8500, L509.8002, L3890.6202, L3100.0300, L3890.6301, L3400.8000, L504.2610, L3100.5850, L3890.4000 #### [facility] [address] [place], [place], [id number] GFR/1.73 sq M.predicted among non-blacks MDRD (S/P/Bld) [Vol rate/Area] 115 mL/min/{1.73_m2} Normal >60 [facility] Comment on above: Result Comment: mL/m in/1.73m2 CKD-EPI Creatinine Equation (2020) Performed By: #### L 3890.6102, L3400.8500, L509.8002, L3890.6202, L3100.0300, L3890.6301, L3400.8000, L504.2610, L3100.5850, L3890.4000 #### [facility] [address] [place], [place], [id number] Glucose [Mass/Vol] 163 mg/dL High 70-99 [facility] Comment on above: Performed By: #### L 3890.6102, L3400.8500, L509.8002, L3890.6202, L3100.0300, L3890.6301, L3400.8000, L504.2610, L3100.5850, L3890.4000 #### [facility] [address] [place], [place], [id number] Potassium [Moles/Vol] 3.7 mmol/L Normal 3.3-5.1 [facility] Comment on above: Performed By: #### L 3890.6102, L3400.8500, L509.8002, L3890.6202, L3100.0300, L3890.6301, L3400.8000, L504.2610, L3100.5850, L3890.4000 #### [facility] [address] [place], [place], [id number] Sodium [Moles/Vol] 138 mmol/L Normal 133-145 [facility] Comment on above: Performed By: #### L 3890.6102, L3400.8500, L509.8002, L3890.6202, L3100.0300, L3890.6301, L3400.8000, L504.2610, L3100.5850, L3890.4000 #### [facility] [address] [place], [place], [id number] Urea nitrogen [Mass/Vol] 15 mg/dL Normal 4-19 [facility] Comment on above: Performed By: #### L 3890.6102, L3400.8500, L509.8002, L3890.6202, L3100.0300, L3890.6301, L3400.8000, L504.2610, L3100.5850, L3890.4000 #### [facility] [address] [place], [place], [id number] Basophil percentageOrdered B y: Pb Adams on 11-08-2024 Basophils/100 WBC (Bld) 0.0 % 0-1 [facility] Basophils/100 WBC Auto (Bld) Ordered By: Chidi Arellano on 11-08-2024 Basophils/100 WBC (Bld) 0 % Not Estab. [facility] Blood basophils count (numbe r/volume)Ordered By: Chidi Arellano on 11-08-2024 Basophils (Bld) [#/Vol] 0 10*3/uL 0.0-0.2 [facility] Blood eosinophils count (num alexis/volume)Ordered By: Chidi Arellano on 11-08-2024 Eosinophils (Bld) [#/Vol] 0 10*3/uL 0.0-0.4 [facility] Blood hematocrit (volume fra ction)Ordered By: Chidi Arellano on 11-08-2024 Hematocrit (Bld) [Volume fraction] 28.7 % Low 34.0-46.6 [facility] Blood immature cells/100 gris kocytesOrdered By: Chidi Arellano on 11-08-2024 Immature cells/100 WBC (Bld) TNP [facility] Comment on above: Test not performed Blood immature granulocytes/ 100 leukocytesOrdered By: Chidi Arellano on 11-08-2024 Immature granulocytes/100 WBC (Bld) 1 % Not Estab. [facility] Blood platelets count (numbe r/volume)Ordered By: Chidi Arellano on 11-08-2024 Platelets (Bld) [#/Vol] 134 10*3/uL Low 150-450 [facility] Body fluid appearance (nomin al result)Ordered By: Pb Adams on 11-08-2024 Appearance (Body fld) CLOUDY [facility] Body fluid color determinati onOrdered By: Pb Adams on 11-08-2024 Color (Body fld) COLORLESS [facility] Body fluid leukocytes count (number/volume)Ordered By: Pb Adams on 11-08-2024 WBC (Body fld) [#/Vol] 670 /mm3 [facility] Body fluid lymphocytes/100 l eukocytesOrdered By: Pb Adams on 11-08-2024 Lymphocytes/100 WBC (Body fld) 8 % [facility] Body fluid other cell count as percentage of leukocytesOrdered By: Pb Adams on 11-08-2024 Other cells/100 WBC (Body fld) 8 % [facility] Body fluid segmented neutrop hils count (number/volume)Ordered By: Pb Adams on 11-08-2024 Segmented neutrophils (Body fld) [#/Vol] 84 % [facility] Bronchoscopy Reporton 2024 Bronchoscopy Report [facility] Medical Records Department [address] [place] [address] Bronchoscopy Report MR#: [id number] Acct: [id number] Name: ALMA DELIA DOW Rep #: [id number] : 1985 38 From: Rangel Cardona DO PCP: Care Physician,No Primary Status:ADM IN Patient Name: Alma Delia Dow Procedure Date: 11/08/2024 10:39 AM Date of : 1985 Age: 38 Procedure: Bronchoscopy Indications: HIV positive with bilateral infiltrates Providers: Rangel Cardona MD Medicines: See the Anesthesia note for documentation of the administered medications Complications: No immediate complications Procedure: Pre-Anesthesia Assessment: - A History and Physical has been performed. Patient meds and allergies have been reviewed. The risks and benefits of the procedure and the sedation options and risks were discussed with the patient. All questions were answered and informed consent was obtained. Patient identification and proposed procedure were verified prior to the procedure by the physician and the nurse in the procedure room. Mental Status Examination: alert and oriented. Airway Examination: normal oropharyngeal airway. Respiratory Examination: clear to auscultation. CV Examination: normal. ASA Grade Assessment: II - A patient with mild systemic disease. After reviewing the risks and benefits, the patient was deemed in satisfactory condition to undergo the procedure. The anesthesia plan was to use monitored anesthesia care (MAC). Immediately prior to administration of medications, the patient was re-assessed for adequacy to receive sedatives. The heart rate, respiratory rate, oxygen saturations, blood pressure, adequacy of pulmonary ventilation, and response to care were monitored throughout the procedure. The physical status of the patient was re-assessed after the procedure. After I obtained informed consent, the scope was passed under direct vision. Throughout the procedure, the patient's blood pressure, pulse, and oxygen saturations were monitored continuously. The bronchoscope was introduced through the mouth and advanced to the tracheobronchial tree. The procedure was accomplished without difficulty. The patient tolerated the procedure well. Findings: The oropharynx appears normal. The larynx appears normal. The vocal cords appear normal. The subglottic space is normal. The trachea is of normal caliber. The tawanda is sharp. The tracheobronchial tree was examined to at least the first subsegmental level. Bronchial mucosa and anatomy are normal; there are no endobronchial lesions, and no secretions. The bronchoscope was advanced until wedged at the desired location for bronchoalveolar lavage. BAL was performed in the right middle lobe of the lung and sent for cell count, bacterial culture, viral smears culture, fungal AFB analysis and cytology for immunocompromised host protocol. 60 mL of fluid were instilled. 20 mL were returned. The return was cloudy. There were no mucoid plugs in the return fluid. Impression: - HIV positive with bilateral infiltrates - The airway examination was normal. - Bronchoalveolar lavage was performed. Recommendation: - Await BAL results. Procedure Code(s): --- Professional --- 79143, Bronchoscopy, rigid or flexible, including fluoroscopic guidance, when performed; with bronchial alveolar lavage Diagnosis Code(s): --- Professional --- B20, Human immunodeficiency virus [HIV] disease R91.8, Other nonspecific abnormal finding of lung field CPT copyright 2021 [employer]. All rights reserved. The codes documented in this report are preliminary and upon medical record coder review may be revised to meet current compliance requirements. DO Rangel Cantrell MD 11/08/2024 11:13:51 AM This report has been signed electronically. Number of Addenda: 0 Note Initiated On: 11/08/2024 10:39 AM 11/08/24 1114 Date Rangel Cardona DO Cosigner Signature: Date (if indicated) CC: Dr. Rangel Cardona DO; No Primary Care Physician Date Dictated: 11/08/24 1039 Date Transcribed: Wallcovering Hanger: PETRA Signed Normal [facility] CBC W/Diff, Automatedon 06-0 Absolute Lymph 0.29 X10 3/uL Low 0.83-4.51 [facility] Comment on above: Performed By: #### L 3890.6102, L3400.8500, L509.8002, L3890.6202, L3100.0300, L3890.6301, L3400.8000, L504.2610, L3100.5850, L3890.4000 #### [facility] [address] [place], [address] Absolute Neut 4.7 X10 3/uL Normal 2.0-7.7 [facility] Comment on above: Performed By: #### L 3890.6102, L3400.8500, L509.8002, L3890.6202, L3100.0300, L3890.6301, L3400.8000, L504.2610, L3100.5850, L3890.4000 #### [facility] [address] [place], [address] ( Basophils/100 WBC (Bld) 0.0 % Normal 0-1 [facility] Comment on above: Performed By: #### L 3890.6102, L3400.8500, L509.8002, L3890.6202, L3100.0300, L3890.6301, L3400.8000, L504.2610, L3100.5850, L3890.4000 #### [facility] [address] [place], [address] Eosinophils/100 WBC (Bld) 0.0 % Normal 0-5 [facility] Comment on above: Performed By: #### L 3890.6102, L3400.8500, L509.8002, L3890.6202, L3100.0300, L3890.6301, L3400.8000, L504.2610, L3100.5850, L3890.4000 #### [facility] [address] [place], [address] Erythrocyte distribution width (RBC) [Ratio] 15.7 % High 11.6-14.6 [facility] Comment on above: Performed By: #### L 3890.6102, L3400.8500, L509.8002, L3890.6202, L3100.0300, L3890.6301, L3400.8000, L504.2610, L3100.5850, L3890.4000 #### [facility] [address] [place], [address] Hematocrit (Bld) [Volume fraction] 24.6 % Low 37-47 [facility] Comment on above: Performed By: #### L 3890.6102, L3400.8500, L509.8002, L3890.6202, L3100.0300, L3890.6301, L3400.8000, L504.2610, L3100.5850, L3890.4000 #### [facility] [address] [place], [address] Hemoglobin (Bld) [Mass/Vol] 8.2 g/dL Low 12.0-15. 0 [facility] Comment on above: Performed By: #### L 3890.6102, L3400.8500, L509.8002, L3890.6202, L3100.0300, L3890.6301, L3400.8000, L504.2610, L3100.5850, L3890.4000 #### [facility] [address] [place], [address] IG% 0.800 Normal 0.0-0.9 [facility] Comment on above: Result Comment: IG% - Immature Granulocytes (promyelocytes, myelocytes and metamyelocytes) > 1% indicates that a LEFT SHIFT is Present. Performed By: #### L 3890.6102, L3400.8500, L509.8002, L3890.6202, L3100.0300, L3890.6301, L3400.8000, L504.2610, L3100.5850, L3890.4000 #### [facility] [address] [place], [address] Lymphocytes/100 WBC (Bld) 5.5 % Low 19-41 [facility] Comment on above: Performed By: #### L 3890.6102, L3400.8500, L509.8002, L3890.6202, L3100.0300, L3890.6301, L3400.8000, L504.2610, L3100.5850, L3890.4000 #### [facility] [address] [place], [address] MCH (RBC) [Entitic mass] 30.1 pg Normal 27.0-32.0 [facility] Comment on above: Performed By: #### L 3890.6102, L3400.8500, L509.8002, L3890.6202, L3100.0300, L3890.6301, L3400.8000, L504.2610, L3100.5850, L3890.4000 #### [facility] [address] [place], [address] MCHC (RBC) [Mass/Vol] 33.3 g/dL Normal 32-36 [facility] Comment on above: Performed By: #### L 3890.6102, L3400.8500, L509.8002, L3890.6202, L3100.0300, L3890.6301, L3400.8000, L504.2610, L3100.5850, L3890.4000 #### [facility] [address] [place], [address] MCV (RBC) [Entitic vol] 90.4 fL Normal 81-99 [facility] Comment on above: Performed By: #### L 3890.6102, L3400.8500, L509.8002, L3890.6202, L3100.0300, L3890.6301, L3400.8000, L504.2610, L3100.5850, L3890.4000 #### [facility] [address] [place], [address] Monocytes/100 WBC (Bld) 4.0 % Normal 0-10 [facility] Comment on above: Performed By: #### L 3890.6102, L3400.8500, L509.8002, L3890.6202, L3100.0300, L3890.6301, L3400.8000, L504.2610, L3100.5850, L3890.4000 #### [facility] [address] [place], [address] (754) Neutrophils/100 WBC (Bld) 89.7 % High 47-70 [facility] Comment on above: Performed By: #### L 3890.6102, L3400.8500, L509.8002, L3890.6202, L3100.0300, L3890.6301, L3400.8000, L504.2610, L3100.5850, L3890.4000 #### [facility] [address] [place], [address] (000) Nucleated RBC (Bld) [#/Vol] 0 10*3/uL Normal 0-5 [facility] Comment on above: Performed By: #### L 3890.6102, L3400.8500, L509.8002, L3890.6202, L3100.0300, L3890.6301, L3400.8000, L504.2610, L3100.5850, L3890.4000 #### [facility] [address] [place], [address] (399) Platelet mean volume (Bld) [Entitic vol] 10.7 fL Normal 6.2-12.0 [facility] Comment on above: Performed By: #### L 3890.6102, L3400.8500, L509.8002, L3890.6202, L3100.0300, L3890.6301, L3400.8000, L504.2610, L3100.5850, L3890.4000 #### [facility] [address] [place], [address] (425) Platelets (Bld) [#/Vol] 125 10*3/uL Low 150-450 [facility] Comment on above: Performed By: #### L 3890.6102, L3400.8500, L509.8002, L3890.6202, L3100.0300, L3890.6301, L3400.8000, L504.2610, L3100.5850, L3890.4000 #### [facility] [address] [place], [place], [id number] (315) RBC (Bld) [#/Vol] 2.72 10*6/uL Low 4.2-5.4 [facility] Comment on above: Performed By: #### L 3890.6102, L3400.8500, L509.8002, L3890.6202, L3100.0300, L3890.6301, L3400.8000, L504.2610, L3100.5850, L3890.4000 #### [facility] [address] [place], [address] (306) RDW SD 52.0 fl High 35.1-43.9 [facility] Comment on above: Performed By: #### L 3890.6102, L3400.8500, L509.8002, L3890.6202, L3100.0300, L3890.6301, L3400.8000, L504.2610, L3100.5850, L3890.4000 #### [facility] [address] [place], [place], [id number] (713) WBC (Bld) [#/Vol] 5.3 10*3/uL Normal 4.4-11.0 [facility] Comment on above: Performed By: #### L 3890.6102, L3400.8500, L509.8002, L3890.6202, L3100.0300, L3890.6301, L3400.8000, L504.2610, L3100.5850, L3890.4000 #### [facility] [address] [place], [address] Calculated very low density lipoprotein (VLDL) cholesterol measurementOrdered By: Chidi Arellano on 11-08-2024 Calculated very low density lipoprotein (VLDL) cholesterol measurement 56 mg/dL High 5-40 [facility] Carbon dioxide, total [Moles /volume] in Central venous bloodOrdered By: Pb Adams on 11-08-2024 CO2 [Moles/Vol] 16.8 mmol/L Low 21.0-32.0 [facility] Chloride assayOrdered By: Roosevelt Adams on 11-08-2024 Chloride [Moles/Vol] 109 mmol/L High 98-108 [facility] Determination of erythrocyte mean corpuscular volume (MCV)Ordered By: Chidi Arellano on 11-08-2024 MCV (RBC) [Entitic vol] 98 fL High 79-97 [facility] Eosinophil percentageOrdered By: Pb Adams on 11-08-2024 Eosinophils/100 WBC (Bld) 0.0 % 0-5 [facility] Eosinophils/100 WBC Auto (Bl d)Ordered By: Chidi Arellano on 11-08-2024 Eosinophils/100 WBC (Bld) 0 % Not Estab. [facility] Erythrocyte distribution wid th ratioOrdered By: Chidi Arellano on 11-08-2024 Erythrocyte distribution width (RBC) [Ratio] 15.8 % High 11.7-15.4 [facility] Erythrocyte distribution wid th ratioOrdered By: Pb dAams on 11-08-2024 Erythrocyte distribution width (RBC) [Ratio] 15.7 % High 11.6-14.6 [facility] Erythrocyte distribution wid th standard deviationOrdered By: Pb Adams on 11-08-2024 Erythrocyte distribution width (RBC) [Ratio] 52.0 fl High 35.1-43.9 [facility] Glomerular filtration rate ( GFR) estimation/1.73 sq m using serum, plasma, or whole bOrdered By: Pb Adams on 11-08-2024 GFR/1.73 sq M.predicted among non-blacks MDRD (S/P/Bld) [Vol rate/Area] 115 mL/min/{1.73_m2} >60 [facility] Comment on above: mL/min/1.73m2 CKD-EP I Creatinine Equation (2020) Gram stainOrdered By: Pb hernandez on 11-08-2024 Microscopic observation Gram stain Nom (Unsp spec) [facility] Hematocrit Auto (Bld) [Volum e fraction]Ordered By: Pb Adams on 11-08-2024 Hematocrit (Bld) [Volume fraction] 24.6 % Low 37-47 [facility] Hemoglobin measurementOrdere d By: Pb Adams on 11-08-2024 Hemoglobin (Bld) [Mass/Vol] 8.2 g/dL Low 12.0-15. 0 [facility] Immature granulocytes/100 WB C Auto (Bld)Ordered By: Pb Adams on 11-08-2024 Immature granulocytes/100 WBC (Bld) 0.800 % 0.0-0.9 [facility] Comment on above: IG% - Immature Granu locytes (promyelocytes, myelocytes and metamyelocytes) > 1% indicates that a LEFT SHIFT is Present. LDL calc ser/plasOrdered By: Chidi Arellano on 11-08-2024 Cholesterol in LDL [Mass/Vol] 99 mg/dL [facility] Comment on above: Cmcuiybiqb=498-966 m g/dL & Higher Welg=190 mg/dL or greater Laboratory - Hematology and Cell countsOrdered By: Chidi Arellano on 11-08-2024 MCH (RBC) [Entitic mass] 29.5 pg 26.6-33.0 [facility] Lipid Profileon 11-08-2024 CHOL:HDL 7.94 Normal [facility] Comment on above: Performed By: #### L 3890.6102, L3400.8500, L509.8002, L3890.6202, L3100.0300, L3890.6301, L3400.8000, L504.2610, L3100.5850, L3890.4000 #### [facility] [address] [place], [address] Cholesterol [Mass/Vol] 177 mg/dL Normal <=200 [facility] Comment on above: Result Comment: Chol esterol level, Desirable <200 mg/dL Borderline high cholesterol 200-239 mg/dL High cholesterol >=240 mg/dL Recommendations of the NCEP Adult Treatment Panel for the following risk-cutoff thresholds for the [place] population. Performed By: #### L 3890.6102, L3400.8500, L509.8002, L3890.6202, L3100.0300, L3890.6301, L3400.8000, L504.2610, L3100.5850, L3890.4000 #### [facility] [address] [place], [address] Cholesterol in HDL [Mass/Vol] 22 mg/dL Low [facility] Comment on above: Result Comment: Megan onal Cholesterol Education Program (NCEP) guidelines: <40 mg/dL: Low HDL-cholesterol (major risk factor for CHD) >= 60 mg/dL: High HDL-cholesterol (negative risk factor for CHD) HDL-cholesterol is affected by a number of factors, e.g. smoking, exercise, hormones, sex and age. Performed By: #### L 3890.6102, L3400.8500, L509.8002, L3890.6202, L3100.0300, L3890.6301, L3400.8000, L504.2610, L3100.5850, L3890.4000 #### [facility] [address] [place], [address] Cholesterol in LDL [Mass/Vol] 99 mg/dL Normal [facility] Comment on above: Result Comment: Bord dzmqpq=212-327 mg/dL Higher Ical=746 mg/dL or greater Performed By: #### L 3890.6102, L3400.8500, L509.8002, L3890.6202, L3100.0300, L3890.6301, L3400.8000, L504.2610, L3100.5850, L3890.4000 #### [facility] [address] [place], [address] Cholesterol in VLDL [Mass/Vol] 56 mg/dL High 5-40 [facility] Comment on above: Performed By: #### L 3890.6102, L3400.8500, L509.8002, L3890.6202, L3100.0300, L3890.6301, L3400.8000, L504.2610, L3100.5850, L3890.4000 #### [facility] [address] [place], [address] Triglyceride [Mass/Vol] 279 mg/dL High [facility] Comment on above: Result Comment: The drugs N-Acetylcysteine and Metamizole may falsely depress this assay. Normal range: <150 mg/dL Borderline High: 150-199 mg/dL High: 200-499 mg/dL Very High: >500 mg/dL Performed By: #### L 3890.6102, L3400.8500, L509.8002, L3890.6202, L3100.0300, L3890.6301, L3400.8000, L504.2610, L3100.5850, L3890.4000 #### [facility] [address] [facility] [place], [address] Lymphocytes/100 WBC Auto (Bl d)Ordered By: Chidi Arellano on 11-08-2024 Lymphocytes/100 WBC (Bld) 4 % Not Estab. [facility] MCHC Auto (RBC) [Mass/Vol]Or dered By: Chidi Arellano on 11-08-2024 MCHC (RBC) [Mass/Vol] 30.0 g/dL Low 31.5-35.7 [facility] MCV (mean corpuscular volume ) determinationOrdered By: Pb Adams on 11-08-2024 MCV (RBC) [Entitic vol] 90.4 fL 81-99 [facility] MR/POSTOP.ANEon 11-08-2024 MR/POSTOP.ANE [facility] Medical Records Department [address] [place] [address] Anesthesia Postop Eval I 11/08/24 1117 MR#: [id number] Acct: [id number] Name: ALMA DELIA DOW Rep #: [id number] : 1985 38 From: Narendra Sandoval CRNA PCP: Care Physician,No Primary Status:ADM IN Y Race: C Location: [place] [address] Anesthesia: Postop Eval I Current Vital Signs Temperature: 97.1 F Pulse Rate: 66 Blood Pressure: 104/73 Respiratory Rate: 16 Pulse Ox: 100 Oxygen Delivery Method: Non-Rebreather Oxygen Flow Rate (L/min): 10 Assessment Airway patent: No Spontaneous unlabored respirations: No Mental status: Asleep nausea: No Vomiting: No Anesthesia Complication: No Fluid Hydration Crystalloid volume administer (ml): 500 Total IV fluid infused: 500 Progress Note Anesthesia document: Postop Eval 1 completed: Yes 11/08/24 1118 Date Narendra Sandoval CRNA Cosigner Signature: Date CC: Signed Normal [facility] MR/VOTBQNUD0ln 11-08-2024 [facility] Medical Records Department [address] [place] [address] Anesthesia Postop Eval II 11/08/24 1217 MR#: [id number] Acct: [id number] Name: BRANTCLEMENTINERAMONEALMA DELIA Wyman Rep #: [id number] : 1985 38 From: Steven Kiran MD PCP: Care Physician,No Primary Status:ADM IN Y Race: C Location: [place] [address] Anesthesia Postop Eval I Sum Postop Eval Completion status Anesthesia document: Postop Eval 1 completed: Yes Anesthesia Postop Eval I Summary Anesthesia Postop Eval I Summary: Anesthesia Postop Eval I: Assessment Summary Airway patent No 11/08/24 11:18 DATA MIGRATION LEAD.SOBR Spontaneous unlabored No 11/08/24 11:18 DATA MIGRATION LEAD.SOBR respirations Mental status Asleep 11/08/24 11:18 DATA MIGRATION LEAD.SOBR nausea No 11/08/24 11:18 DATA MIGRATION LEAD.SOBR Vomiting No 11/08/24 11:18 DATA MIGRATION LEAD.SOBR Anesthesia Postop Eval I: Fluid Summary Crystalloid volume administer 500 11/08/24 11:18 DATA MIGRATION LEAD.SOBR (ml) Colloids volume administered ( ml) Blood Product volume administered (ml) Total IV fluid infused 500 11/08/24 11:18 DATA MIGRATION LEAD.SOBR Anesthesia Postop Eval I: Summary Notes Anesthesia Complication No 11/08/24 11:18 DATA MIGRATION LEAD.SOBR Anesthesia Complication Comment: Post-operative progress note Anesthesia: Postop Eval II Evaluation Mental status: Awake Pain Level: 1 nausea: No Vomiting: No 11/08/24 1217 Date Steven Scott Signature: Date CC: Signed Normal [facility] Mean corpuscular hemoglobin (MCH) determinationOrdered By: Pb Adams on 11-08-2024 MCH (RBC) [Entitic mass] 30.1 pg 27.0-32.0 [facility] Mean corpuscular hemoglobin concentration (MCHC) determinationOrdered By: Pb Adams on 11-08-2024 MCHC (RBC) [Mass/Vol] 33.3 g/dL 32-36 [facility] Mean platelet volume determi nationOrdered By: Pb Adams on 11-08-2024 Platelet mean volume (Bld) [Entitic vol] 10.7 fL 6.2-12.0 [facility] Microbial respiratory cultur eOrdered By: Pb Adams on 11-08-2024 Microorganism identified Cx Nom (Unsp spec) Presumptive C albicans Abnormal [facility] Monocyte detectionOrdered By : Chidi Arellano on 11-08-2024 Monocytes/100 WBC (Bld) 3 % Not Estab. [facility] Monocyte percentageOrdered B y: Pb Adams on 11-08-2024 Monocytes/100 WBC (Bld) 4.0 % 0-10 [facility] Neutrophil countOrdered By: Chidi Arellano on 11-08-2024 Neutrophils/100 WBC (Bld) 92 % Not Estab. [facility] Neutrophil percentageOrdered By: Pb Adams on 11-08-2024 Neutrophils/100 WBC (Bld) 89.7 % High 47-70 [facility] No Panel InformationOrdered By: Pb Adams on 11-08-2024 Body Fluid Comment 2 Not Reportable [facility] Body Fluid RBC 130 /mm3 [facility] Nucleated RBC/100 WBC Auto ( Bld) [Ratio]Ordered By: Chidi Arellano on 11-08-2024 Nucleated RBC/100 WBC (Bld) [Ratio] TNP [facility] Comment on above: Test not performed Nucleated red blood cell per centageOrdered By: Pb Adams on 11-08-2024 Nucleated RBC/100 WBC (Bld) [Ratio] 0 % 0-5 [facility] Pathologist interpretation o f Body fluid testsOrdered By: Pb Adams on 11-08-2024 Pathologist interpretation (Body fld) [Interp] May follow [facility] Pathologist interpretation (Body fld) [Interp] Reviewed [facility] Comment on above: Previous reported re sult: May follow Edited by: AMY on 11/12/24:1114NEUTROPHILS - 80LYMPHOCYTES - 2MONOCYTES - 2SQUAMOUS - 12NO MALIGNANT CELLS IDENTIFIED.MANY CELLS ARE DEGENERATIVE, LIMITING THE DIFFERENTIAL CELL COUNT.Shana Terrazas MD 11/12/2024 AMENDED REPORT 11/12/24 1114 PATH COMM/BF previously reported as: May follow Percent of cells positive fo r CD4 antigenOrdered By: Chidi Arellano on 11-08-2024 CD3+CD4+ (T4 helper) cells/100 cells (Unsp spec) 11.8 % Low 30.8-58.5 [facility] Platelet countOrdered By: Roosevelt Adams on 11-08-2024 Platelets (Bld) [#/Vol] 125 10*3/uL Low 150-450 [facility] Potassium measurement (mass/ volume)Ordered By: Pb Adams on 11-08-2024 Potassium (Unsp spec) [Mass/Vol] 3.7 mmol/L 3.3-5.1 [facility] RBC Auto (Bld) [#/Vol]Ordere d By: Chidi Arellano on 11-08-2024 RBC (Bld) [#/Vol] 2.92 10*6/uL Low 3.77-5.28 [facility] RBC Auto (Bld) [#/Vol]Ordere d By: Pb Adams on 11-08-2024 RBC (Bld) [#/Vol] 2.72 10*6/uL Low 4.2-5.4 [facility] Screening total cholesterol/ high density lipoprotein (HDL) cholesterol ratioOrdered By: Chidi Arellano on 11-08-2024 Cholesterol.total/Cholester ol in HDL [Mass ratio] 7.94 {ratio} [facility] Serum creatinine measurement (mass/volume)Ordered By: Pb Adams on 11-08-2024 Creatinine [Mass/Vol] 0.66 mg/dL Low 0.70-1.20 [facility] Serum glucose measurement (m ass/volume)Ordered By: Pb Adams on 11-08-2024 Glucose [Mass/Vol] 163 mg/dL High 70-99 [facility] Serum or plasma calcium eula urement (mass/volume)Ordered By: Pb Adams on 11-08-2024 Calcium [Mass/Vol] 9.1 mg/dL 7.6-11.0 [facility] Serum or plasma cholesterol in HDL measurement (mass/volume)Ordered By: Chidi Arellano on 11-08-2024 Cholesterol in HDL [Mass/Vol] 22 mg/dL Low >40 [facility] Comment on above: National Cholesterol Education Program (NCEP) guidelines:<40 mg/dL: Low HDL-cholesterol (major risk factor for CHD)>= 60 mg/dL: High HDL-cholesterol (negative risk factor for CHD)HDL-cholesterol is affected by a number of factors, e.g. smoking, exercise, hormones, sex and age. Serum or plasma cholesterol measurement (mass/volume)Ordered By: Chidi Arellano on 11-08-2024 Cholesterol [Mass/Vol] 177 mg/dL <201 [facility] Comment on above: Cholesterol level, D esirable <200 mg/dLBorderline high cholesterol 200-239 mg/dLHigh cholesterol >=240 mg/dLRecommendations of the NCEP Adult Treatment Panel for the following risk-cutoff thresholds for the [place] population. Serum or plasma urea nitroge n measurement (mass/volume)Ordered By: Pb Adams on 11-08-2024 Urea nitrogen [Mass/Vol] 15 mg/dL 4-19 [facility] Sodium levelOrdered By: Pb Adams on 11-08-2024 Sodium [Moles/Vol] 138 mmol/L 133-145 [facility] Specimen source identificati on of body fluidOrdered By: Pb Adams on 11-08-2024 Specimen source Nom (Body fld) BRONCHIAL LAVAGE [facility] Total cell countOrdered By: Pb Adams on 11-08-2024 Cells counted Molgen (Bld/Tiss) [#] TNP [facility] Comment on above: Test not performed Toxoplasma Gondii IgGon TOXOPLASMA IgG < 3.0 Normal 0.0-7.1 [facility] Comment on above: Result Comment: Nega tive <7.2 Equivocal 7.2 - 8.7 Positive >8.7 Performed By: #### L , F3111.6837 ####[facility] [address] [place], [address] Toxoplasma Gondii IgMon Tox. gondii Com Comment Normal . [facility] Comment on above: Result Comment: It i s presumed the patient has not been infected with and is not undergoing an acute infection with Toxoplasma. If symptoms persist, submit a new specimen after three weeks. Performed at: - [facility] [id number] Joint Creaser: Cullen Lema PhD, Phone: [phone] Performed By: #### L , L3465.3900 ####[facility] [address] [facility] [place], [address] TOXOPLASMA IgM < 3.0 Normal 0.0-7.9 [facility] Comment on above: Result Comment: Nega tive <8.0 Equivocal 8.0 - 9.9 Positive >9.9 Performed By: #### L 3400.1980, L3400.3900 ####[facility] [address] [place], [address] Triglycerides measurementOrd ered By: Chidi Arellano on 11-08-2024 Triglyceride [Mass/Vol] 279 mg/dL High <199 [facility] Comment on above: The drugs N-Acetylcy steine and Metamizole may falsely depress this assay. Normal range: <150 mg/dLBorderline High: 150-199 mg/dLHigh: 200-499 mg/dLVery High: >500 mg/dL Trough vancomycin levelOrder ed By: Shayy Dodson on 11-08-2024 Vancomycin trough [Mass/Vol] 13.0 ug/mL 5.0-15.0 [facility] Comment on above: Recommended goal tro ugh ranges are generally 10-15 mcg/ml for less severe/complicated infections such as cellulitis or UTI and 15-20 mcg/ml for more severe/complicated infections such as bacteremia/sepsis, osteomyelitis, pneumonia or meningitis. Goal trough ranges should take into account indication, patient-specific factors and organism MARQUIS.VANCOMYCIN STANDARED DRUG THERAPY TROUGH LEVEL: 5.0 - 15.0 mg/L VANCOMYCIN HIGH INTENSITY THERAPY TROUGH LEVEL: 15.0 - 20.0 mg/L High Intensity therapy recommended for serious lifethreatening infections include:- Werenkefcn-Vxnkzuphxbee-Pxggmrhuj (Ventilator/Healtcare Associated)-Sepsis PLEASE CONTACT PHARMACY SERVICES (#[id number]) FOR INTERPRETATIONOF RESULTS. Vancomycin, Trough Levelon 0 11-08-2024 VANCO, TROUGH 13.0 ug/mL Normal 5.0-15.0 [facility] Comment on above: Order Comment: Reaso n for Exam: transaminitis Result Comment: Jaskaran mmended goal trough ranges are generally 10-15 mcg/ml for less severe/complicated infections such as cellulitis or UTI and 15-20 mcg/ml for more severe/complicated infections such as bacteremia/sepsis, osteomyelitis, pneumonia or meningitis. Goal trough ranges should take into account indication, patient-specific factors and organism MARQUIS. VANCOMYCIN STANDARED DRUG THERAPY TROUGH LEVEL: 5.0 - 15.0 mg/L VANCOMYCIN HIGH INTENSITY THERAPY TROUGH LEVEL: 15.0 - 20.0 mg/L High Intensity therapy recommended for serious life threatening infections include: - Meningitis -Endocarditis -Pneumonia (Ventilator/Healtcare Associated) -Sepsis PLEASE CONTACT PHARMACY SERVICES (#[id number]) FOR INTERPRETATION OF RESULTS. Performed By: #### L 3890.6102, L3400.8500, L509.8002, L3890.6202, L3100.0300, L3890.6301, L3400.8000, L504.2610, L3100.5850, L3890.4000 #### [facility] [address] [facility] [place], [place], [id number] WBC countOrdered By: Chidi Arellano on 11-08-2024 WBC (Bld) [#/Vol] 8.5 10*3/uL 3.4-10.8 [facility] White blood cell (WBC) count Ordered By: Pb Adams on 11-08-2024 WBC (Bld) [#/Vol] 5.3 10*3/uL 4.4-11.0 [facility] Whole blood hemoglobin measu rement (mass/volume)Ordered By: Chidi Arellano on 11-08-2024 Hemoglobin (Bld) [Mass/Vol] 8.6 g/dL Low 11.1-15. 9 [facility] Assessment of wrist artery p atency prior to arterial punctureOrdered By: Shayy Dodson on 11-07-2024 Arterial patency Wrist artery --pre arterial puncture Positive [facility] Bilirubin, totalOrdered By: Shayy Dodson on 11-07-2024 Bilirubin [Mass/Vol] 0.48 mg/dL 0.00-1.30 [facility] Blood Gases by CPSon 025 NEGIN TEST Positive Normal [facility] Comment on above: Performed By: #### L 9000.0800 ####[facility] [address] [facility] [place], [place], [id number] Base excess Calc (Bld) [Moles/Vol] 0 mmol/L Normal -2 to +2 [facility] Comment on above: Performed By: #### L 9000.08 ####[facility] [address] [place], [address] Blood Gas Type ART Normal [facility] Comment on above: Performed By: #### L 8999.0800 ####[facility] [address] [place], [address] CO2 [Moles/Vol] 24 mmol/L Normal [facility] Comment on above: Performed By: #### L 8999.08 ####[facility] [address] [place], [address] FI02 6.0 Normal [facility] Comment on above: Performed By: #### L 8999.0800 ####[facility] [address] [place], [address] HCO3 (Bld) [Moles/Vol] 22.7 mmol/L Normal 22-26 [facility] Comment on above: Performed By: #### L 8999.0800 ####[facility] [address] [place], [address] Mode Not entered [facility] Comment on above: Performed By: #### L 8999.08 ####[facility] [address] [place], [address] O2 Delivery Dev Cannula Normal [facility] Comment on above: Performed By: #### L 8999.0800 ####[facility] [address] [place], [address] pCO2 28.6 mmHg Low 35-45 [facility] Comment on above: Performed By: #### L 8999.0800 ####[facility] [address] [place], [address] pH (Bld) 7.51 [pH] High 7.35-7.45 [facility] Comment on above: Performed By: #### L 0.0800 ####[facility] [address] [place], [address] PO2 69 mmHG Low 75-100 [facility] Comment on above: Performed By: #### L 9000.0800 ####[facility] [address] [place], [address] SITE L Radial Normal [facility] Comment on above: Performed By: #### L 0.0800 ####[facility] [address] [place], [address] SO2 96 Normal 95-99 [facility] Comment on above: Performed By: #### L 0.0800 ####[facility] [address] [place], [address] Blood base excess determinat ionOrdered By: Shayy Dodson on 11-07-2024 Base excess Calc (BldV) [Moles/Vol] 0 mmol/L -2-2 [facility] Blood bicarbonate measuremen tOrdered By: Shayy Dodson on 11-07-2024 HCO3 (Bld) [Moles/Vol] 22.7 mmol/L 22-26 [facility] CBC W/Diff, Automatedon 06- Absolute Lymph 0.20 X10 3/uL Low 0.83-4.51 [facility] Comment on above: Performed By: #### L 501.2300, L100.0100, L501.5200, L500.4050 ####[facility] [address] [place], [address] Absolute Neut 4.8 X10 3/uL Normal 2.0-7.7 [facility] Comment on above: Performed By: #### L 501.2300, L100.0100, L501.5200, L500.4050 ####[facility] [address] [place], [address] Basophils/100 WBC (Bld) 0.2 % Normal 0-1 [facility] Comment on above: Performed By: #### L 501.2300, L100.0100, L501.5200, L500.4050 ####[facility] [address] [place], [address] Eosinophils/100 WBC (Bld) 0.2 % Normal 0-5 [facility] Comment on above: Performed By: #### L 501.2300, L100.0100, L501.5200, L500.4050 ####[facility] [address] [place], [address] Erythrocyte distribution width (RBC) [Ratio] 15.7 % High 11.6-14.6 [facility] Comment on above: Performed By: #### L 501.2300, L100.0100, L501.5200, L500.4050 ####[facility] [address] [place], [address] Hematocrit (Bld) [Volume fraction] 26.8 % Low 37-47 [facility] Comment on above: Performed By: #### L 501.2300, L100.0100, L501.5200, L500.4050 ####[facility] [address] [place], [address] Hemoglobin (Bld) [Mass/Vol] 8.9 g/dL Low 12.0-15. 0 [facility] Comment on above: Performed By: #### L 501.2300, L100.0100, L501.5200, L500.4050 ####[facility] [address] [place], [address] IG% 0.400 Normal 0.0-0.9 [facility] Comment on above: Result Comment: IG% - Immature Granulocytes (promyelocytes, myelocytes and metamyelocytes) > 1% indicates that a LEFT SHIFT is Present. Performed By: #### L 501.2300, L100.0100, L501.5200, L500.4050 ####[facility] [address] [place], [address] Lymphocytes/100 WBC (Bld) 3.9 % Low 19-41 [facility] Comment on above: Performed By: #### L 501.2300, L100.0100, L501.5200, L500.4050 ####[facility] [address] [place], [address] MCH (RBC) [Entitic mass] 30.1 pg Normal 27.0-32.0 [facility] Comment on above: Performed By: #### L 501.2300, L100.0100, L501.5200, L500.4050 ####[facility] [address] [place], [address] MCHC (RBC) [Mass/Vol] 33.2 g/dL Normal 32-36 [facility] Comment on above: Performed By: #### L 501.2300, L100.0100, L501.5200, L500.4050 ####[facility] [address] [place], [address] MCV (RBC) [Entitic vol] 90.5 fL Normal 81-99 [facility] Comment on above: Performed By: #### L 501.2300, L100.0100, L501.5200, L500.4050 ####[facility] [address] [place], [address] Monocytes/100 WBC (Bld) 1.6 % Normal 0-10 [facility] Comment on above: Performed By: #### L 501.2300, L100.0100, L501.5200, L500.4050 ####[facility] [address] [place], [address] Neutrophils/100 WBC (Bld) 93.7 % High 47-70 [facility] Comment on above: Performed By: #### L 501.2300, L100.0100, L501.5200, L500.4050 ####[facility] [address] [place], [address] Nucleated RBC (Bld) [#/Vol] 0 10*3/uL Normal 0-5 [facility] Comment on above: Performed By: #### L 501.2300, L100.0100, L501.5200, L500.4050 ####[facility] [address] [place], [address] Platelet mean volume (Bld) [Entitic vol] 11.1 fL Normal 6.2-12.0 [facility] Comment on above: Performed By: #### L 501.2300, L100.0100, L501.5200, L500.4050 ####[facility] [address] [place], [address] Platelets (Bld) [#/Vol] 127 10*3/uL Low 150-450 [facility] Comment on above: Performed By: #### L 501.2300, L100.0100, L501.5200, L500.4050 ####[facility] [address] [place], [address] RBC (Bld) [#/Vol] 2.96 10*6/uL Low 4.2-5.4 [facility] Comment on above: Performed By: #### L 501.2300, L100.0100, L501.5200, L500.4050 ####[facility] [address] [place], [address] RDW SD 52.1 fl High 35.1-43.9 [facility] Comment on above: Performed By: #### L 501.2300, L100.0100, L501.5200, L500.4050 ####[facility] [address] [place], [address] WBC (Bld) [#/Vol] 5.1 10*3/uL Normal 4.4-11.0 [facility] Comment on above: Performed By: #### L 501.2300, L100.0100, L501.5200, L500.4050 ####[facility] [address] [place], [address] Comprehensive Metabolic Prof ilon 11-07-2024 Albumin [Mass/Vol] 3.0 g/dL Low 3.5-5.0 [facility] Comment on above: Performed By: #### L 501.2300, L100.0100, L501.5200, L500.4050 ####[facility] [address] [place], [address] Albumin/Globulin [Mass ratio] 1.0 {ratio} Normal 0.9-2.4 [facility] Comment on above: Performed By: #### L 501.2300, L100.0100, L501.5200, L500.4050 ####[facility] [address] [place], [address] ALK PHOS 463 U/L High 35-104 [facility] Comment on above: Performed By: #### L 501.2300, L100.0100, L501.5200, L500.4050 ####[facility] [address] [place], [address] ALT [Catalytic activity/Vol] 39 U/L High <=34 [facility] Comment on above: Performed By: #### L 501.2300, L100.0100, L501.5200, L500.4050 ####[facility] [address] [place], [address] AST [Catalytic activity/Vol] 89 U/L High <=31 [facility] Comment on above: Performed By: #### L 501.2300, L100.0100, L501.5200, L500.4050 ####[facility] [address] [place], [address] Bilirubin [Mass/Vol] 0.48 mg/dL Normal 0.00-1.30 [facility] Comment on above: Performed By: #### L 501.2300, L100.0100, L501.5200, L500.4050 ####[facility] [address] [place], [address] BUN/CRE 13.5 RATIO Normal 10-20 [facility] Comment on above: Performed By: #### L 501.2300, L100.0100, L501.5200, L500.4050 ####[facility] [address] [place], [address] Calcium [Mass/Vol] 8.4 mg/dL Normal 7.6-11.0 [facility] Comment on above: Performed By: #### L 501.2300, L100.0100, L501.5200, L500.4050 ####[facility] [address] [place], [address] Chloride [Moles/Vol] 107 mmol/L Normal 98-108 [facility] Comment on above: Performed By: #### L 501.2300, L100.0100, L501.5200, L500.4050 ####[facility] [address] [place], [address] CO2 [Moles/Vol] 18.8 mmol/L Low 21.0-32.0 [facility] Comment on above: Performed By: #### L 501.2300, L100.0100, L501.5200, L500.4050 ####[facility] [address] [place], [address] Creatinine [Mass/Vol] 0.79 mg/dL Normal 0.70-1.20 [facility] Comment on above: Performed By: #### L 501.2300, L100.0100, L501.5200, L500.4050 ####[facility] [address] [place], [address] ECRCL 75.63 ml/min Normal 50-250 [facility] Comment on above: Performed By: #### L 501.2300, L100.0100, L501.5200, L500.4050 ####[facility] [address] [place], [address] GAP 12 Normal 5-15 [facility] Comment on above: Performed By: #### L 501.2300, L100.0100, L501.5200, L500.4050 ####[facility] [address] [place], [address] GFR/1.73 sq M.predicted among non-blacks MDRD (S/P/Bld) [Vol rate/Area] 99 mL/min/{1.73_m2} Normal >60 [facility] Comment on above: Result Comment: mL/m in/1.73m2 CKD-EPI Creatinine Equation (2020) Performed By: #### L 501.2300, L100.0100, L501.5200, L500.4050 ####[facility] [address] [place], [address] Globulin (S) [Mass/Vol] 3.0 g/dL Normal 2.2-4.2 [facility] Comment on above: Performed By: #### L 501.2300, L100.0100, L501.5200, L500.4050 ####[facility] [address] [place], [address] Glucose [Mass/Vol] 182 mg/dL High 70-99 [facility] Comment on above: Performed By: #### L 501.2300, L100.0100, L501.5200, L500.4050 ####[facility] [address] [place], [address] Potassium [Moles/Vol] 3.8 mmol/L Normal 3.3-5.1 [facility] Comment on above: Performed By: #### L 501.2300, L100.0100, L501.5200, L500.4050 ####[facility] [address] [place], [address] Sodium [Moles/Vol] 139 mmol/L Normal 133-145 [facility] Comment on above: Performed By: #### L 501.2300, L100.0100, L501.5200, L500.4050 ####[facility] [address] [place], [address] T PROT 6.0 g/dL Normal 5.9-8.4 [facility] Comment on above: Performed By: #### L 501.2300, L100.0100, L501.5200, L500.4050 ####[facility] [address] [place], [address] Urea nitrogen [Mass/Vol] 11 mg/dL Normal 4-19 [facility] Comment on above: Performed By: #### L 501.2300, L100.0100, L501.5200, L500.4050 ####[facility] [address] [place], [address] Consultation - Infectious Dx on 11-07-2024 Consultation - Infectious Dx [facility] Medical Records Department [address] [place] [address] Consultation - Infectious Dx 11/07/24 1105 MR#: [id number] Acct: [id number] Name: ALMA DELIA DOW Rep #: [id number] : 1985 38 From: Chidi Arellano MD PCP: Care Physician,No Primary Status:ADM CAROLEE Location: [place] [id number] Assessment Plan Assessment/Plan (1) Bilateral interstitial pneumonia: [...] a 38 F with minimal PMH, presented 6/4 to ED with 5 months dry cough, [...] other animals. Only travel recently was to [place] in August. [facility] Medical History Anemia Migraine headache Gastric reflux [...] 90.1 H, Lymph % (Auto) 4.9 L, Roosevelt % (Auto) 3.4, Eos % (Auto) 1.0, Baso % (Auto) 0.2, Absolute Neuts (auto) 4.6, Absolute Lymphs (auto) 0.25 L, Nucleated RBC % 0, Sodium 135, Potassium 2.8 L, Chloride 100, Carbon Dioxide 21.8, Anion Gap 13, BUN 13, Creatinine 0 (more content not included)... Normal [facility] Cryptococcus antigen titerOr dered By: Chidi Arellano on 11-07-2024 Cryptococcus sp Ag (Unsp spec) [Titer] TNP [facility] Comment on above: Test not performed Cytomegalovirus (CMV) DNA me asurement by PCR (log units/volume)Ordered By: Chidi Arellano on 11-07-2024 CMV DNA JULISSA+probe (P) [Log units/Vol] 3.431 IU/mL . [facility] Comment on above: Result Units: log10 IU/mL Hepatitis B Surface Antibody on 11-07-2024 HEP B Surf Ab Non-Reactive Normal [facility] Comment on above: Result Comment: <8.5 mIU/mL: Non-Reactive 8.5<= x <11.5 mIU/mL: Indeterminate >=11.5 mIU/mL: Reactive Non Reactive: Inconsistent with immunity less than <10 mIU/mL Reactive: Consistent with immunity greater than or equal to 10 mIU/mL Performed By: #### L 3890.6102, L3400.8500, L509.8002, L3890.6202, L3100.0300, L3890.6301, L3400.8000, L504.2610, L3100.5850, L3890.4000 #### [facility] [address] [place], [place], [id number] Hepatitis C Antibodyon 11-07 Hepatitis C Ab Non-Reactive Normal Nonreactive [facility] Comment on above: Order Comment: Reaso [...] HCV Quant by PCR testing - HCVPCR #[id number] Non Reactive: < 0.8 Equivocal: >/= 0.8 to < 1.0 Reactive: >/= 1.0 The [facility] requires that a reactive/equivocal HCV antibody result be sent out for confirmation. HCV Quant by PCR testing. Performed By: #### L 3890.6102, L3400.8500, L509.8002, L3890.6202, L3100.0300, L3890.6301, L3400.8000, L504.2610, L3100.5850, L3890.4000 #### [facility] [address] [facility] [place], [place], [id number] L3890.6102on 11-07-2024 HEP B Surf Ag Non-Reactive Normal Nonreactive [facility] Comment on above: Order Comment: Reaso n for Exam: transaminitis Result Comment: Reac tive: Presumptive evidence of HBV. Repeatedly reactive samples must be confirmed using a neutralization test ([employer] HBsAg Confirmatory Test) Non-Reactive: HBsAg not detected; does not exclude the possibility of exposure to HBV Performed By: #### L 3890.6102, L3400.8500, L509.8002, L3890.6202, L3100.0300, L3890.6301, L3400.8000, L504.2610, L3100.5850, L3890.4000 #### [facility] [address] [place], [place], [id number] LDHon 11-07-2024 LDH 599 U/L High 84-246 [facility] Comment on above: Order Comment: Reaso n for Exam: transaminitis Performed By: #### L 3890.6102, L3400.8500, L509.8002, L3890.6202, L3100.0300, L3890.6301, L3400.8000, L504.2610, L3100.5850, L3890.4000 #### [facility] [address] [facility] [place], [place], [id number] Laboratory - Chemistry and C hemistry - challengeOrdered By: Shayy Dodson on 11-07-2024 AST [Catalytic activity/Vol] 89 U/L High <32 [facility] - Microbiology an d Antimicrobial susceptibilityOrdered By: Chidi Arellano on 11-07-2024 HBV surface Ag Ql (S) Non-Reactive Nonreactive [facility] Comment on above: Reactive: Presumptiv e evidence of HBV. Repeatedly reactive samples must be confirmed using a neutralization test ([employer] HBsAg Confirmatory Test)Non-Reactive: HBsAg not detected; does not exclude the possibility of exposure to HBV Lactate dehydrogenase (LDH) measurementOrdered By: Chidi Arellano on 11-07-2024 LDH [Catalytic activity/Vol] 599 U/L High 84-246 [facility] M R Staph Aureus DNA by PCRo n 11-07-2024 MRSA DNA ASSAY Negative Normal Negative [facility] Comment on above: Performed By: #### L 8200.1000 ####[facility] [address] [place], [address] M8200.1000on 11-07-2024 M8200.1000 Negative Normal [facility] Comment on above: Performed By: #### L 3890.6102, L3400.8500, L509.8002, L3890.6202, L3100.0300, L3890.6301, L3400.8000, L504.2610, L3100.5850, L3890.4000 #### [facility] [address] [facility] [place], [address] M8200.2203on 11-07-2024 M8200.2203 Pending Chlamydia Trachomatis PCR NEGATIVE for Chlamydia trachomatis N. gonorrhoeae PCR Negative for N. gonorrhoeae Normal [facility] Comment on above: Performed By: #### L 3890.6102, L3400.8500, L509.8002, L3890.6202, L3100.0300, L3890.6301, L3400.8000, L504.2610, L3100.5850, L3890.4000 #### [facility] [address] [place], [address] Magnesiumon 11-07-2024 Magnesium [Mass/Vol] 1.7 mg/dL Normal 1.5-2.2 [facility] Comment on above: Performed By: #### L 501.2300, L100.0100, L501.5200, L500.4050 ####[facility] [address] [place], [address] Magnesium measurement (mass/ volume)Ordered By: Shayy Dodson on 11-07-2024 Magnesium (Unsp spec) [Mass/Vol] 1.7 mg/dL 1.5-2.2 [facility] Measurement, pHOrdered By: Rosita Dodson on 11-07-2024 pH (Unsp spec) 7.51 [pH] High 7.35-7.45 [facility] Nasal methicillin resistant Staphylococcus aureus (MRSA) DNA detection by PCROrdered By: Chidi Arellano on 11-07-2024 MRSA DNA JULISSA+probe Ql (Nose) [facility] No Panel InformationOrdered By: Chidi Arellano on 11-07-2024 Toxoplasma Comment Comment . [facility] Comment on above: It is presumed the p atient has not been infected with andis not undergoing an acute infection with Toxoplasma. Ifsymptoms persist, submit a new specimen after three weeks.Performed at: [facility] [address] [id number] Director: Cullen Lema PhD, Phone: [phone] No Panel InformationOrdered By: Shayy Dodson on 11-07-2024 Blood Gas Sample Site L Radial [facility] Blood Gas Specimen Type ART W [facility] Blood Gas Vent Mode Not entered [facility] Oxygen Delivery Device Cannula [facility] Phosphoruson 11-07-2024 Phosphate [Mass/Vol] 4.0 mg/dL Normal 2.7-4.5 [facility] Comment on above: Performed By: #### L 501.2300, L100.0100, L501.5200, L500.4050 ####[facility] [address] [place], [address] Plasma HIV 1 RNA viral load by probe and target amplification method (log number/voluOrdered By: Chidi Arellano on 11-07-2024 HIV 1 RNA JULISSA+probe [Log #/Vol] 5.883 . [facility] Comment on above: Result Units: log10c opy/mLPerformed at: - [facility] [address] [id number] Director: Kendrick Lubin MD, Phone: [phone] Qualitative QuantiFERON-TB g old in tube testOrdered By: Chidi Arellano on 11-07-2024 M. tuberculosis tuberculin stim IFN-g Ql (Bld) 0.04 IU/mL . [facility] Serum Israel Gonzalez virus cap brenda IgM antibody assay (units/volume)Ordered By: Chidi Arellano on 11-07-2024 EBV capsid IgM Qn (S) [arb'U]/mL 0.0-35.9 [facility] Comment on above: Negative <36.0 Equiv ocal 36.0 - 43.9 Positive >43.9 Serum Israel Gonzalez virus nuc lear IgG antibody assay (units/volume)Ordered By: Chidi Arellano on 11-07-2024 EBV nuclear IgG Qn (S) 139.0 U/mL High 0.0-17.9 [facility] Comment on above: Negative <18.0 Equiv ocal 18.0 - 21.9 Positive >21.9 Serum Toxoplasma gondii IgG antibody assay (units/volume)Ordered By: Chidi Arellano on 11-07-2024 T. gondii IgG Qn (S) < 3.0 IU/mL 0.0-7.1 [facility] Comment on above: Negative <7.2 Equivo leola 7.2 - 8.7 Positive >8.7 Serum Toxoplasma gondii IgM antibody assay by immunoassay (units/volume)Ordered By: Chidi Arellano on 11-07-2024 T. gondii IgM IA Qn (S) < 3.0 AU/mL 0.0-7.9 [facility] Comment on above: Negative <8.0 Equivo leola 8.0 - 9.9 Positive >9.9 Serum globulin measurementOr dered By: Shayy Dodson on 11-07-2024 Globulin (S) [Mass/Vol] 3.0 g/dL 2.2-4.2 [facility] Serum hepatitis B virus surf gordo antibody detectionOrdered By: Chidi Arellano on 11-07-2024 HBV surface Ab Ql (S) Non-Reactive [facility] Comment on above: <8.5 mIU/mL: Non-[place] ctive8.5<= x <11.5 mIU/mL: Indeterminate>=11.5 mIU/mL: Reactive Non Reactive: Inconsistent with immunity less than <10 mIU/mL Reactive: Consistent with immunity greater than or equal to 10 mIU/mL Serum or plasma alanine foss otransferase (ALT) measurementOrdered By: Shayy Dodosn on 11-07-2024 ALT [Catalytic activity/Vol] 39 U/L High <35 [facility] Serum or plasma albumin uela urement (mass/volume)Ordered By: Shayy Dodson on 11-07-2024 Albumin [Mass/Vol] 3.0 g/dL Low 3.5-5.0 [facility] Serum or plasma albumin/glob ulin mass ratioOrdered By: Shayy Dodson on 11-07-2024 Albumin/Globulin [Mass ratio] 1.0 {ratio} 0.9-2.4 [facility] Serum or plasma alkaline aida sphatase measurementOrdered By: Shayy Dodson on 11-07-2024 ALP [Catalytic activity/Vol] 463 U/L High 35-104 [facility] Syphilis Antibodieson 2024 Syphilis Abs Non-Reactive Normal Nonreactive [facility] Comment on above: Order Comment: Reaso n for Exam: transaminitis Performed By: #### L 3890.6102, L3400.8500, L509.8002, L3890.6202, L3100.0300, L3890.6301, L3400.8000, L504.2610, L3100.5850, L3890.4000 #### [facility] [address] [place], [place], [id number] Total carbon dioxide measure mentOrdered By: Shayy Dodson on 11-07-2024 CO2 [Moles/Vol] 24 mmol/L [facility] Total proteinOrdered By: Shawna Dodson on 11-07-2024 Protein [Mass/Vol] 6.0 g/dL 5.9-8.4 [facility] DEDRICK Comprehensive Panelon DEDRICK TABLE TNP Normal [facility] Comment on above: Result Comment: WRON G TEST Performed By: #### L 3890.6102, L3400.8500, L509.8002, L3890.6202, L3100.0300, L3890.6301, L3400.8000, L504.2610, L3100.5850, L3890.4000 #### [facility] [address] [place], [place], [id number] ANTI-CENT B AB TNP Normal [facility] Comment on above: Result Comment: WRON G TEST Performed By: #### L 3890.6102, L3400.8500, L509.8002, L3890.6202, L3100.0300, L3890.6301, L3400.8000, L504.2610, L3100.5850, L3890.4000 #### [facility] [address] [place], [place], [id number] ANTI-BLOSSOM-1 TNP Normal [facility] Comment on above: Result Comment: WRON G TEST Performed By: #### L 3890.6102, L3400.8500, L509.8002, L3890.6202, L3100.0300, L3890.6301, L3400.8000, L504.2610, L3100.5850, L3890.4000 #### [facility] [address] [place], [place], [phone] (155) ANTICHROMATIN TNP Normal [facility] Comment on above: Result Comment: WRON G TEST Performed By: #### L 3890.6102, L3400.8500, L509.8002, L3890.6202, L3100.0300, L3890.6301, L3400.8000, L504.2610, L3100.5850, L3890.4000 #### [facility] [address] [place], [place], [phone] (622) ANTISCLERODERM TNP Normal [facility] Comment on above: Result Comment: WRON G TEST Performed By: #### L 3890.6102, L3400.8500, L509.8002, L3890.6202, L3100.0300, L3890.6301, L3400.8000, L504.2610, L3100.5850, L3890.4000 #### [facility] [address] [facility] [place], [place], [id number] [employer] Ab TNP Normal [facility] Comment on above: Result Comment: WRON G TEST Performed By: #### L 3890.6102, L3400.8500, L509.8002, L3890.6202, L3100.0300, L3890.6301, L3400.8000, L504.2610, L3100.5850, L3890.4000 #### [facility] [address] [place], [place], [id number] [phone] OLSON Ab TNP Normal [facility] Comment on above: Result Comment: WRON G TEST Performed By: #### L 3890.6102, L3400.8500, L509.8002, L3890.6202, L3100.0300, L3890.6301, L3400.8000, L504.2610, L3100.5850, L3890.4000 #### [facility] [address] [place], [place], [phone] (525) ANTI-DNA (DS)AB Normal [facility] Comment on above: Result Comment: WRON G TEST Performed By: #### L 3890.6102, L3400.8500, L509.8002, L3890.6202, L3100.0300, L3890.6301, L3400.8000, L504.2610, L3100.5850, L3890.4000 #### [facility] [address] [place], [address] ANTI-SS-A Normal [facility] Comment on above: Result Comment: WRON G TEST Performed By: #### L 3890.6102, L3400.8500, L509.8002, L3890.6202, L3100.0300, L3890.6301, L3400.8000, L504.2610, L3100.5850, L3890.4000 #### [facility] [address] [place], [address] ANTI-SS-B Normal [facility] Comment on above: Result Comment: WRON G TEST Performed By: #### L 3890.6102, L3400.8500, L509.8002, L3890.6202, L3100.0300, L3890.6301, L3400.8000, L504.2610, L3100.5850, L3890.4000 #### [facility] [address] [facility] [place], [address] ANCAon 11-06-2024 Cytoplasmic Ab Normal Neg:<1:20 [facility] Comment on above: Result Comment: DUPL ICATE Performed By: #### L 3890.6102, L3400.8500, L509.8002, L3890.6202, L3100.0300, L3890.6301, L3400.8000, L504.2610, L3100.5850, L3890.4000 #### [facility] [address] [place], [address] Perinuclear Ab. Normal Neg:<1:20 [facility] Comment on above: Result Comment: DUPL ICATE Performed By: #### L 3890.6102, L3400.8500, L509.8002, L3890.6202, L3100.0300, L3890.6301, L3400.8000, L504.2610, L3100.5850, L3890.4000 #### [facility] [address], [address] Absolute lymphocyte countOrd ered By: Parish Frias on 11-06-2024 Lymphocytes Auto (Unsp spec) [#/Vol] 0.25 10*3/uL Low 0.83-4.51 [facility] Absolute neutrophil countOrd ered By: Parishmarko Frias on 11-06-2024 Neutrophils (Bld) [#/Vol] 4.6 10*3/uL 2.0-7.7 [facility] Amphetamine detection with 1 000 ng/mL as cutoffOrdered By: Shayy Dodson on 11-06-2024 Amphetamines Screen method >1000 ng/mL Ql (U) Negative < 200 ng/mL [facility] Anion gap in Serum or Plasma Ordered By: Parishmarko Frias on 11-06-2024 Anion gap [Moles/Vol] 13 mmol/L 5-15 [facility] Automated lymphocyte count a s percentage of total leukocytesOrdered By: Parishmarko Frias on 11-06-2024 Lymphocytes/100 WBC Auto (Unsp spec) 4.9 % Low 19-41 [facility] BUN/creatinine ratioOrdered By: Parishmarko Frias on 11-06-2024 Urea nitrogen/Creatinine [Mass ratio] 16.6 mg/mg 10-20 [facility] Basophil percentageOrdered B y: Parish Frias on 11-06-2024 Basophils/100 WBC (Bld) 0.2 % 0-1 [facility] Bilirubin Test strip Ql (U)O rdered By: Walt Krishnan on 11-06-2024 Bilirubin Ql (U) Negative Negative [facility] Bilirubin, totalOrdered By: Parishmarko Frias on 11-06-2024 Bilirubin [Mass/Vol] 0.45 mg/dL 0.00-1.30 [facility] Blood cultureOrdered By: Shawna Dodson on 11-06-2024 Bacteria identified Cx Nom (Bld) No growth in 5 days. [facility] Bacteria identified Cx Nom (Bld) No growth in 5 days. [facility] Blood cultureOrdered By: Parish Frias on 11-06-2024 Bacteria identified Cx Nom (Bld) No growth in 5 days. [facility] Bacteria identified Cx Nom (Bld) No growth in 5 days. [facility] CBC W/Diff, Automatedon 06-0 Absolute Lymph 0.25 X10 3/uL Low 0.83-4.51 [facility] Comment on above: Performed By: #### L 3890.6102, L3400.8500, L509.8002, L3890.6202, L3100.0300, L3890.6301, L3400.8000, L504.2610, L3100.5850, L3890.4000 #### [facility] [address] [place], [address] Absolute Neut 4.6 X10 3/uL Normal 2.0-7.7 [facility] Comment on above: Performed By: #### L 3890.6102, L3400.8500, L509.8002, L3890.6202, L3100.0300, L3890.6301, L3400.8000, L504.2610, L3100.5850, L3890.4000 #### [facility] [address] [place], [address] Basophils/100 WBC (Bld) 0.2 % Normal 0-1 [facility] Comment on above: Performed By: #### L 3890.6102, L3400.8500, L509.8002, L3890.6202, L3100.0300, L3890.6301, L3400.8000, L504.2610, L3100.5850, L3890.4000 #### [facility] [address] [place], [address] Eosinophils/100 WBC (Bld) 1.0 % Normal 0-5 [facility] Comment on above: Performed By: #### L 3890.6102, L3400.8500, L509.8002, L3890.6202, L3100.0300, L3890.6301, L3400.8000, L504.2610, L3100.5850, L3890.4000 #### [facility] [address] [facility] [place], [address] Erythrocyte distribution width (RBC) [Ratio] 15.5 % High 11.6-14.6 [facility] Comment on above: Performed By: #### L 3890.6102, L3400.8500, L509.8002, L3890.6202, L3100.0300, L3890.6301, L3400.8000, L504.2610, L3100.5850, L3890.4000 #### [facility] [address] [place], [address] Hematocrit (Bld) [Volume fraction] 27.3 % Low 37-47 [facility] Comment on above: Performed By: #### L 3890.6102, L3400.8500, L509.8002, L3890.6202, L3100.0300, L3890.6301, L3400.8000, L504.2610, L3100.5850, L3890.4000 #### [facility] [address] [facility] [place], [address] Hemoglobin (Bld) [Mass/Vol] 9.2 g/dL Low 12.0-15. 0 [facility] Comment on above: Performed By: #### L 3890.6102, L3400.8500, L509.8002, L3890.6202, L3100.0300, L3890.6301, L3400.8000, L504.2610, L3100.5850, L3890.4000 #### [facility] [address] [facility] [place], [address] IG% 0.400 Normal 0.0-0.9 [facility] Comment on above: Result Comment: IG% - Immature Granulocytes (promyelocytes, myelocytes and metamyelocytes) > 1% indicates that a LEFT SHIFT is Present. Performed By: #### L 3890.6102, L3400.8500, L509.8002, L3890.6202, L3100.0300, L3890.6301, L3400.8000, L504.2610, L3100.5850, L3890.4000 #### [facility] [address] [place], [address] Lymphocytes/100 WBC (Bld) 4.9 % Low 19-41 [facility] Comment on above: Performed By: #### L 3890.6102, L3400.8500, L509.8002, L3890.6202, L3100.0300, L3890.6301, L3400.8000, L504.2610, L3100.5850, L3890.4000 #### [facility] [address] [place], [address] MCH (RBC) [Entitic mass] 29.9 pg Normal 27.0-32.0 [facility] Comment on above: Performed By: #### L 3890.6102, L3400.8500, L509.8002, L3890.6202, L3100.0300, L3890.6301, L3400.8000, L504.2610, L3100.5850, L3890.4000 #### [facility] [address] [place], [address] MCHC (RBC) [Mass/Vol] 33.7 g/dL Normal 32-36 [facility] Comment on above: Performed By: #### L 3890.6102, L3400.8500, L509.8002, L3890.6202, L3100.0300, L3890.6301, L3400.8000, L504.2610, L3100.5850, L3890.4000 #### [facility] [address] [place], [address] MCV (RBC) [Entitic vol] 88.6 fL Normal 81-99 [facility] Comment on above: Performed By: #### L 3890.6102, L3400.8500, L509.8002, L3890.6202, L3100.0300, L3890.6301, L3400.8000, L504.2610, L3100.5850, L3890.4000 #### [facility] [address] [place], [address] Monocytes/100 WBC (Bld) 3.4 % Normal 0-10 [facility] Comment on above: Performed By: #### L 3890.6102, L3400.8500, L509.8002, L3890.6202, L3100.0300, L3890.6301, L3400.8000, L504.2610, L3100.5850, L3890.4000 #### [facility] [address] [facility] [place], [place], [phone] (277) Neutrophils/100 WBC (Bld) 90.1 % High 47-70 [facility] Comment on above: Performed By: #### L 3890.6102, L3400.8500, L509.8002, L3890.6202, L3100.0300, L3890.6301, L3400.8000, L504.2610, L3100.5850, L3890.4000 #### [facility] [address] [facility] [address] [place], [place], [phone] (945) Nucleated RBC (Bld) [#/Vol] 0 10*3/uL Normal 0-5 [facility] Comment on above: Performed By: #### L 3890.6102, L3400.8500, L509.8002, L3890.6202, L3100.0300, L3890.6301, L3400.8000, L504.2610, L3100.5850, L3890.4000 #### [facility] [address] [facility] [place], [address] Platelet mean volume (Bld) [Entitic vol] 11.0 fL Normal 6.2-12.0 [facility] Comment on above: Performed By: #### L 3890.6102, L3400.8500, L509.8002, L3890.6202, L3100.0300, L3890.6301, L3400.8000, L504.2610, L3100.5850, L3890.4000 #### [facility] [address] [place], [place], [phone] (777) Platelets (Bld) [#/Vol] 155 10*3/uL Normal 150-450 [facility] Comment on above: Performed By: #### L 3890.6102, L3400.8500, L509.8002, L3890.6202, L3100.0300, L3890.6301, L3400.8000, L504.2610, L3100.5850, L3890.4000 #### [facility] [address] [place], [address] (575) RBC (Bld) [#/Vol] 3.08 10*6/uL Low 4.2-5.4 [facility] Comment on above: Performed By: #### L 3890.6102, L3400.8500, L509.8002, L3890.6202, L3100.0300, L3890.6301, L3400.8000, L504.2610, L3100.5850, L3890.4000 #### [facility] [address] [place], [address] (549) RDW SD 50.0 fl High 35.1-43.9 [facility] Comment on above: Performed By: #### L 3890.6102, L3400.8500, L509.8002, L3890.6202, L3100.0300, L3890.6301, L3400.8000, L504.2610, L3100.5850, L3890.4000 #### [facility] [address] [place], [place], [phone] (216) WBC (Bld) [#/Vol] 5.1 10*3/uL Normal 4.4-11.0 [facility] Comment on above: Performed By: #### L 3890.6102, L3400.8500, L509.8002, L3890.6202, L3100.0300, L3890.6301, L3400.8000, L504.2610, L3100.5850, L3890.4000 #### [facility] [address] [facility] [place], [address] CRPon 11-06-2024 C-REACTIVE PROT 56.70 mg/L High 0.0-3.0 [facility] Comment on above: Performed By: #### L 3890.6102, L3400.8500, L509.8002, L3890.6202, L3100.0300, L3890.6301, L3400.8000, L504.2610, L3100.5850, L3890.4000 #### [facility] [address] [facility] [place], [address] CTA Chest W/WO Contraston CTA Chest W/WO Contrast [facility] Imaging Services [address] [place], [place] [id number] CTA Chest W/WO Contrast MR#: [id number] Acct: [id number] Name: ALMA DELIA DOW Rep #: [id number] : 1985 F 38 From: Yanick Davila MD PCP: Care Physician,No Primary Status: ADM IN Study: CTA Chest W/WO Contrast Date of Exam: 11/06/24 Exam# [id number] Ordering Dr: Parish Frias MD EXAM: CT [...] both lungs, likely multifocal pneumonia. Reading Location: [facility] CC: Dr. Parish Frias MD; No Primary Care Physician Wallcovering Hanger: Signed Normal [facility] Carbon dioxide, total [Moles /volume] in Central venous bloodOrdered By: Parish Frias on 11-06-2024 CO2 [Moles/Vol] 21.8 mmol/L 21.0-32.0 [facility] Chest PA and Lateralon 11-06 Chest PA and Lateral [facility] Imaging Services [address] [place] [address] Chest PA and Lateral MR#: [id number] Acct: [id number] Name: PALOMAALMA DELIA Wyman Rep #: [id number] : 1985 F 38 From: Martell Wyman PCP: Care Physician,No Primary Status: [facility] ER Study: Chest PA and Lateral Date of Exam: 11/06/24 Exam# [id number] Ordering Dr: Parish Frias MD PROCEDURE: CHEST [...] No acute osseous changes seen. Reading Location: [id number] CC: Dr. Parish Frias MD; No Primary Care Physician Wallcovering Hanger: Signed Normal [facility] Chloride assayOrdered By: Kip Frias on 11-06-2024 Chloride [Moles/Vol] 100 mmol/L 98-108 [facility] Comprehensive Metabolic Prof ilon 11-06-2024 Albumin [Mass/Vol] 3.2 g/dL Low 3.5-5.0 [facility] Comment on above: Performed By: #### L 3890.6102, L3400.8500, L509.8002, L3890.6202, L3100.0300, L3890.6301, L3400.8000, L504.2610, L3100.5850, L3890.4000 #### [facility] [address] [place], [address] Albumin/Globulin [Mass ratio] 1.0 {ratio} Normal 0.9-2.4 [facility] Comment on above: Performed By: #### L 3890.6102, L3400.8500, L509.8002, L3890.6202, L3100.0300, L3890.6301, L3400.8000, L504.2610, L3100.5850, L3890.4000 #### [facility] [address] [place], [address] ALK PHOS 429 U/L High 35-104 [facility] Comment on above: Performed By: #### L 3890.6102, L3400.8500, L509.8002, L3890.6202, L3100.0300, L3890.6301, L3400.8000, L504.2610, L3100.5850, L3890.4000 #### [facility] [address] [place], [place], [id number] (469) ALT [Catalytic activity/Vol] 42 U/L High <=34 [facility] Comment on above: Performed By: #### L 3890.6102, L3400.8500, L509.8002, L3890.6202, L3100.0300, L3890.6301, L3400.8000, L504.2610, L3100.5850, L3890.4000 #### [facility] [address] [place], [place], [id number] (698) AST [Catalytic activity/Vol] 74 U/L High <=31 [facility] Comment on above: Performed By: #### L 3890.6102, L3400.8500, L509.8002, L3890.6202, L3100.0300, L3890.6301, L3400.8000, L504.2610, L3100.5850, L3890.4000 #### [facility] [address] [place], [place], [id number] Bilirubin [Mass/Vol] 0.45 mg/dL Normal 0.00-1.30 [facility] Comment on above: Performed By: #### L 3890.6102, L3400.8500, L509.8002, L3890.6202, L3100.0300, L3890.6301, L3400.8000, L504.2610, L3100.5850, L3890.4000 #### [facility] [address] [place], [place], [id number] BUN/CRE 16.6 RATIO Normal 10-20 [facility] Comment on above: Performed By: #### L 3890.6102, L3400.8500, L509.8002, L3890.6202, L3100.0300, L3890.6301, L3400.8000, L504.2610, L3100.5850, L3890.4000 #### [facility] [address] [place], [address] Calcium [Mass/Vol] 9.0 mg/dL Normal 7.6-11.0 [facility] Comment on above: Performed By: #### L 3890.6102, L3400.8500, L509.8002, L3890.6202, L3100.0300, L3890.6301, L3400.8000, L504.2610, L3100.5850, L3890.4000 #### [facility] [address] [place], [place], [id number] Chloride [Moles/Vol] 100 mmol/L Normal 98-108 [facility] Comment on above: Performed By: #### L 3890.6102, L3400.8500, L509.8002, L3890.6202, L3100.0300, L3890.6301, L3400.8000, L504.2610, L3100.5850, L3890.4000 #### [facility] [address] [place], [place], [id number] CO2 [Moles/Vol] 21.8 mmol/L Normal 21.0-32.0 [facility] Comment on above: Performed By: #### L 3890.6102, L3400.8500, L509.8002, L3890.6202, L3100.0300, L3890.6301, L3400.8000, L504.2610, L3100.5850, L3890.4000 #### [facility] [address] [place], [place], [id number] Creatinine [Mass/Vol] 0.80 mg/dL Normal 0.70-1.20 [facility] Comment on above: Performed By: #### L 3890.6102, L3400.8500, L509.8002, L3890.6202, L3100.0300, L3890.6301, L3400.8000, L504.2610, L3100.5850, L3890.4000 #### [facility] [address] [place], [address] (485) ECRCL 68.49 ml/min Normal 50-250 [facility] Comment on above: Performed By: #### L 3890.6102, L3400.8500, L509.8002, L3890.6202, L3100.0300, L3890.6301, L3400.8000, L504.2610, L3100.5850, L3890.4000 #### [facility] [address] [place], [address] GAP 13 Normal 5-15 [facility] Comment on above: Performed By: #### L 3890.6102, L3400.8500, L509.8002, L3890.6202, L3100.0300, L3890.6301, L3400.8000, L504.2610, L3100.5850, L3890.4000 #### [facility] [address] [place], [place], [id number] GFR/1.73 sq M.predicted among non-blacks MDRD (S/P/Bld) [Vol rate/Area] 97 mL/min/{1.73_m2} Normal >60 [facility] Comment on above: Result Comment: mL/m in/1.73m2 CKD-EPI Creatinine Equation (2020) Performed By: #### L 3890.6102, L3400.8500, L509.8002, L3890.6202, L3100.0300, L3890.6301, L3400.8000, L504.2610, L3100.5850, L3890.4000 #### [facility] [address] [place], [address] Globulin (S) [Mass/Vol] 3.3 g/dL Normal 2.2-4.2 [facility] Comment on above: Performed By: #### L 3890.6102, L3400.8500, L509.8002, L3890.6202, L3100.0300, L3890.6301, L3400.8000, L504.2610, L3100.5850, L3890.4000 #### [facility] [address] [place], [address] Glucose [Mass/Vol] 105 mg/dL High 70-99 [facility] Comment on above: Performed By: #### L 3890.6102, L3400.8500, L509.8002, L3890.6202, L3100.0300, L3890.6301, L3400.8000, L504.2610, L3100.5850, L3890.4000 #### [facility] [address] [place], [address] Potassium [Moles/Vol] 2.8 mmol/L Low 3.3-5.1 [facility] Comment on above: Performed By: #### L 3890.6102, L3400.8500, L509.8002, L3890.6202, L3100.0300, L3890.6301, L3400.8000, L504.2610, L3100.5850, L3890.4000 #### [facility] [address] [place], [address] Sodium [Moles/Vol] 135 mmol/L Normal 133-145 [facility] Comment on above: Performed By: #### L 3890.6102, L3400.8500, L509.8002, L3890.6202, L3100.0300, L3890.6301, L3400.8000, L504.2610, L3100.5850, L3890.4000 #### [facility] [address] [place], [address] T PROT 6.5 g/dL Normal 5.9-8.4 [facility] Comment on above: Performed By: #### L 3890.6102, L3400.8500, L509.8002, L3890.6202, L3100.0300, L3890.6301, L3400.8000, L504.2610, L3100.5850, L3890.4000 #### [facility] [address] [place], [address] Urea nitrogen [Mass/Vol] 13 mg/dL Normal 4-19 [facility] Comment on above: Performed By: #### L 3890.6102, L3400.8500, L509.8002, L3890.6202, L3100.0300, L3890.6301, L3400.8000, L504.2610, L3100.5850, L3890.4000 #### [facility] [address] [place], [address] Consultation - Intensiviston 11-06-2024 Consultation - Brush Stainer [facility] Medical Records Department [address] [place] [address] Consultation - Brush Stainer 11/06/24 1831 MR#: [id number] Acct: [id number] Name: ALMA DELIA DOW Rep #: [id number] : 1985 38 From: Walt Krishnan MD PCP: Care Physician,No Primary Status:ADM IN Location: [place] [address] HPI Consult Data Date of Consult: 11/06/24 HPI Narrative HPI Narrative: ALMA DELIA DOW, is a 38 F who presents [facility] Medical History Anemia Migraine headache Gastric reflux [...] mls @ 15 mls/hr 11/06/24 17:03 IV .[id number] PRN Saline Flush Sodium Chloride 250 mls @ 15 mls/hr 11/06/24 17:03 IV .[id number] PRN Additional IVPB Infusion Methylprednisolone 40 mg [...] 90.1 H, Lymph % (Auto) 4.9 L, Roosevelt % (Auto) 3.4, Eos % (Auto) 1.0, Baso % (Auto) 0.2, Absolute Neuts (auto) 4.6, Abs (more content not included)... Normal [facility] Emergency Department Summary on 11-06-2024 Emergency Department Summary [facility] Medical Records Department [address] [place] [address] Emergency Department Summary 11/06/24 MR#: [id number] Acct: [id number] Name: ALMA DELIA DOW Rep #: [id number] : 1985 38 From: Parish Frias MD [...] a smoker. She was seen at the [facility] urgent care and diagnosed with a clinical pneumonia. Prior similar symptoms: Yes Recent Illness/Hospitalizati on: Yes [facility] Medical History Anemia Migraine headache Gastric reflux [...] Method Room (more content not included)... Normal [facility] Eosinophil percentageOrdered By: Parish Frias on 11-06-2024 Eosinophils/100 WBC (Bld) 1.0 % 0-5 [facility] Erythrocyte Sed Rateon 11-06 SED RATE 28 mm/hr Normal 0-30 [facility] Comment on above: Performed By: #### L 3890.6102, L3400.8500, L509.8002, L3890.6202, L3100.0300, L3890.6301, L3400.8000, L504.2610, L3100.5850, L3890.4000 #### [facility] [address] [place], [address] Erythrocyte distribution wid th ratioOrdered By: Parishmarko Frias on 11-06-2024 Erythrocyte distribution width (RBC) [Ratio] 15.5 % High 11.6-14.6 [facility] Erythrocyte distribution wid th standard deviationOrdered By: Parishmarko Frias on 11-06-2024 Erythrocyte distribution width (RBC) [Ratio] 50.0 fl High 35.1-43.9 [facility] Erythrocyte sedimentation ra teOrdered By: Shayy Dodson on 11-06-2024 ESR (Bld) [Velocity] 28 mm/h 0-30 [facility] Ferritinon 11-06-2024 Ferritin [Mass/Vol] 1130 ng/mL High 22-378 [facility] Comment on above: Performed By: #### L 3890.6102, L3400.8500, L509.8002, L3890.6202, L3100.0300, L3890.6301, L3400.8000, L504.2610, L3100.5850, L3890.4000 #### [facility] [address] [place], [address] Glomerular filtration rate ( GFR) estimation/1.73 sq m using serum, plasma, or whole bOrdered By: Parish Frias on 11-06-2024 GFR/1.73 sq M.predicted among non-blacks MDRD (S/P/Bld) [Vol rate/Area] 97 mL/min/{1.73_m2} >60 [facility] Comment on above: mL/min/1.73m2 CKD-EP I Creatinine Equation (2020) H AND P Exam - Hospitaliston 11-06-2024 H&P Exam - Hospitalist [facility] Medical Records Department [address] [place] [address] H P Exam - Hospitalist 11/06/24 1549 MR#: [id number] Acct: [id number] Name: ALMA DELIA DOW Rep #: [id number] : 1985 38 From: Shayy Dodson DO PCP: Care Physician,No Primary Status:ADM IN Location: [facility] RCL905-2 HPI - General General Date of Admission: 11/06/24 Date of Service: 11/06/24 Chief Complaint: Shortness of breath HPI Narrative ALMA DELIA DOW, is a 38 F who presented to the emergency department [facility] on 11/06/2024 with a chief complaint [...] request for admission was made. [facility] Medical History Anemia Migraine headache Gastric reflux [...] urinary hesitancy (more content not included)... Normal [facility] HIVon 11-06-2024 HIV Reactive Abnormal Nonreactive [facility] Comment on above: Result Comment: Non- Reactive Reactive Repeatedly reactive samples must be confirmed according to CDC recommended confirmatory algorithms. The subresults for either HIVAG or AHIV can be used as an aid in the selection of the confirmation algorithm for reactive samples. Send out specimens with Reactive results to [facility] for confirmation. Order the HIV antibody detection and differentiation: lc#[id number] Performed By: #### L 3890.6102, L3400.8500, L509.8002, L3890.6202, L3100.0300, L3890.6301, L3400.8000, L504.2610, L3100.5850, L3890.4000 #### [facility] [address] [place], [place], [id number] Hematocrit Auto (Bld) [Volum e fraction]Ordered By: Parish Frias on 11-06-2024 Hematocrit (Bld) [Volume fraction] 27.3 % Low 37-47 [facility] Hemoglobin measurementOrdere d By: Parish Frias on 11-06-2024 Hemoglobin (Bld) [Mass/Vol] 9.2 g/dL Low 12.0-15. 0 [facility] Immature granulocytes/100 WB C Auto (Bld)Ordered By: Parish Frias on 11-06-2024 Immature granulocytes/100 WBC (Bld) 0.400 % 0.0-0.9 [facility] Comment on above: IG% - Immature Granu locytes (promyelocytes, myelocytes and metamyelocytes) > 1% indicates that a LEFT SHIFT is Present. Influenza virus A and B and SARS-CoV-2 (COVID-19) and Respiratory syncytial virus RNAOrdered By: Parish Frias on 11-06-2024 SARS-CoV-2 (COVID-19) RNA JULISSA+probe Ql (Unsp spec) [facility] Iron measurement (mass/mass) Ordered By: Shayy Dodson on 11-06-2024 Iron (Unsp spec) [Mass/Mass] 23 ug/dL Low 50-170 [facility] Iron+Iron Binding Capacityon 11-06-2024 IRON SATURATION 10.4 Low 13-59 [facility] Comment on above: Result Comment: AMENDED REPORT 11/06/241944 IRON SATURATION previously reported as: 10.0 L % Performed By: #### L 3890.6102, L3400.8500, L509.8002, L3890.6202, L3100.0300, L3890.6301, L3400.8000, L504.2610, L3100.5850, L3890.4000 #### [facility] [address] [place], [place], [id number] TIBC 221 ug/dL Low 250-450 [facility] Comment on above: Performed By: #### L 3890.6102, L3400.8500, L509.8002, L3890.6202, L3100.0300, L3890.6301, L3400.8000, L504.2610, L3100.5850, L3890.4000 #### [facility] [address] [place], [address] Ketones Test strip Ql (U)Ord ered By: Walt Krishnan on 11-06-2024 Ketones Ql (U) Negative Negative [facility] L503.7505on 11-06-2024 Natriuretic peptide B (Bld) [Mass/Vol] 317 pg/mL Normal <=450 [facility] Comment on above: Result Comment: Hear t Failure Unlikely: < 300 pg/mL Heart Failure Likely < 50 Years: > 450 pg/mL 50-75 Years: > 900 pg/mL >75 Years: > 1800 pg/mL Performed By: #### L 3890.6102, L3400.8500, L509.8002, L3890.6202, L3100.0300, L3890.6301, L3400.8000, L504.2610, L3100.5850, L3890.4000 #### [facility] [address] [place], [address] L509.7001on 11-06-2024 Procalcitonin 0.53 ng/mL High <=0.10 [facility] Comment on above: Result Comment: Inte [...] of the patient. Performed By: #### L 3890.6102, L3400.8500, L509.8002, L3890.6202, L3100.0300, L3890.6301, L3400.8000, L504.2610, L3100.5850, L3890.4000 #### [facility] [address] [place], [address] LDHon 11-06-2024 LDH 467 U/L High 84-246 [facility] Comment on above: Performed By: #### L 3890.6102, L3400.8500, L509.8002, L3890.6202, L3100.0300, L3890.6301, L3400.8000, L504.2610, L3100.5850, L3890.4000 #### [facility] [address] [place], [place], [id number] Laboratory - Chemistry and C hemistry - challengeOrdered By: Parish Frias on 11-06-2024 AST [Catalytic activity/Vol] 74 U/L High <32 [facility] Lactic Acidon 11-06-2024 Lactate [Moles/Vol] mmol/L Normal 0.0-2.0 [facility] Comment on above: Order Comment: Reaso n for Exam: transaminitis Performed By: #### L 3890.6102, L3400.8500, L509.8002, L3890.6202, L3100.0300, L3890.6301, L3400.8000, L504.2610, L3100.5850, L3890.4000 #### [facility] [address] [place], [address] Lactic acid measurementOrder ed By: Parish Frias on 11-06-2024 Lactate [Moles/Vol] mmol/L 0.0-2.0 [facility] Legionella Antigen Urineon 0 11-06-2024 LEGU Comments: Only Recommended for severe cases of pneumonia Only Recommended for severe cases of pneumonia Legionella Antigen result interpretation: L pneumo Ag Ur Ql Negative Presumptive negative for Legionella pneumophila serogroup 1 antigen in urine, suggesting no recent or current infection. Legionella Ag, Urine Negative (See interpretation below) Normal [facility] Comment on above: Performed By: #### L 3890.6102, L3400.8500, L509.8002, L3890.6202, L3100.0300, L3890.6301, L3400.8000, L504.2610, L3100.5850, L3890.4000 #### [facility] [address] [place], [address] M100.678on 11-06-2024 M100.678 SARS-CoV-2 (COVID 19 ) Negative INFLUENZA A Negative INFLUENZA B Negative RSV PCR Negative Normal [facility] Comment on above: Performed By: #### M 100676 ####[facility] [address] [place], [address] MCV (mean corpuscular volume ) determinationOrdered By: Parish Frias on 11-06-2024 MCV (RBC) [Entitic vol] 88.6 fL 81-99 [facility] Mean corpuscular hemoglobin (MCH) determinationOrdered By: Parishmarko Frias on 11-06-2024 MCH (RBC) [Entitic mass] 29.9 pg 27.0-32.0 [facility] Mean corpuscular hemoglobin concentration (MCHC) determinationOrdered By: Parish Frias on 11-06-2024 MCHC (RBC) [Mass/Vol] 33.7 g/dL 32-36 [facility] Mean platelet volume determi nationOrdered By: Parish Frias on 11-06-2024 Platelet mean volume (Bld) [Entitic vol] 11.0 fL 6.2-12.0 [facility] Microscopic analysis of urin e for red blood cells (RBC)Ordered By: Walt Krishnan on 11-06-2024 Microscopic analysis of urine for red blood cells (RBC) 0-5 SEEN /hpf 0-5 [facility] Monocyte percentageOrdered B y: Parish Frias on 11-06-2024 Monocytes/100 WBC (Bld) 3.4 % 0-10 [facility] Mucus LM Ql (Urine sed)Order ed By: Walt Krishnan on 11-06-2024 Mucus Ql (Urine sed) 0 SEEN /hpf [facility] Natriuretic peptide.B prohor domonique N-Terminal [Mass/volume] in Serum or PlasmaOrdered By: Walt Krishnan on 11-06-2024 Natriuretic peptide.B prohormone N-Terminal [Mass/Vol] 317 pg/mL <450 [facility] Comment on above: Heart Failure Unlike ly: < 300 pg/mLHeart Failure Likely< 50 Years: > 450 pg/mL50-75 Years: > 900 pg/mL>75 Years: > 1800 pg/mL Neutrophil percentageOrdered By: Parish Frias on 11-06-2024 Neutrophils/100 WBC (Bld) 90.1 % High 47-70 [facility] Nitrite Test strip Ql (U)Ord ered By: Walt Krishnan on 11-06-2024 Nitrite Ql (U) Negative Negative [facility] No Panel InformationOrdered By: Shayy Dodson on 11-06-2024 Urine Buprenorphine Qualitative Negative < 200 ng/mL [facility] Urine Oxycodone Screen Negative < 100 ng/mL [facility] Unsaturated Iron Binding Capacity 198 ug/dL Low 228-428 [facility] No Panel InformationOrdered By: Walt Krishnan on 11-06-2024 HIV (1&2) Antibody Reactive High Nonreactive [facility] Comment on above: Non-ReactiveReactive Repeatedly reactive samples must be confirmed according to CDC recommended confirmatory algorithms. The subresults for either HIVAG or AHIV can be used as an aid in the selection of the confirmation algorithm for reactive samples.Send out specimens with Reactive results to [facility] for confirmation.Order the HIV antibody detection and differentiation: #[id number] Nucleated red blood cell per centageOrdered By: Parish Frias on 11-06-2024 Nucleated RBC/100 WBC (Bld) [Ratio] 0 % 0-5 [facility] Platelet countOrdered By: Kip Frias on 11-06-2024 Platelets (Bld) [#/Vol] 155 10*3/uL 150-450 [facility] Potassium measurement (mass/ volume)Ordered By: Parish Frias on 11-06-2024 Potassium (Unsp spec) [Mass/Vol] 2.8 mmol/L Low 3.3-5.1 [facility] ,Urineon 11-06-2024 Beta HCG ( test) Ql (U) Negative Normal [facility] Comment on above: Result Comment: Very dilute urine specimens, as indicated by a low specific gravity, may not contain product sales representative levels of hCG. If is still suspected, a first morning urine specimen should be collected 48 hours later and tested. Performed By: #### L 400.7600 ####[facility] [address] [place], [place], [address] Procalcitonin [Mass/volume] in Serum or Plasma by ImmunoassayOrdered By: Shayy Dodson on 11-06-2024 Procalcitonin IA [Mass/Vol] 0.53 ng/mL High <0.11 [facility] Comment on above: Interpretation:<0.10 -0.25 ng/mL: Antibiotic therapy discouraged. Bacterial infection unlikely.0.25-0.50 ng/mL: Antibiotic therapy encouraged. Bacterial infection possible.>0.50 ng/mL: Antibiotic therapy strongly encouraged. Suggestive of presence of bacterial infection.PCT should always be interpreted in the clinical context of the patient. Therefore, clinicians should use the PCT results in conjunction with other laboratory findings and clinical signs of the patient. Protein Test strip Ql (U)Ord ered By: Walt Krishnan on 11-06-2024 Protein Ql (U) 15 mg/dl High Negative [facility] Quantitative urine opiates m easurementOrdered By: Shayy Dodson on 11-06-2024 Opiates Ql (U) Negative < 300 ng/mL [facility] RBC Auto (Bld) [#/Vol]Ordere d By: Parish Frias on 11-06-2024 RBC (Bld) [#/Vol] 3.08 10*6/uL Low 4.2-5.4 [facility] RESPIRATORY PANEL MOLECULARo n 11-06-2024 RP PANEL ADENOVIRUS Not Detected INFLUENZA A Not Detected INFLUENZA A (SUBTYPE H1) Not Detected INFLUENZA A (SUBTYPE H3) Not Detected INFLUENZA B Not Detected HUMAN METAPHNEUMO Not Detected PARAINFLUENZA 1 Not Detected PARAINFLUENZA 2 Not Detected PARAINFLUENZA 3 Not Detected PARAINFLUENZA 4 Not Detected RHINOVIRUS Not Detected RSV A Not Detected RSV B Not Detected Normal [facility] Comment on above: Performed By: #### L 3890.6102, L3400.8500, L509.8002, L3890.6202, L3100.0300, L3890.6301, L3400.8000, L504.2610, L3100.5850, L3890.4000 #### [facility] [address] [place], [place], [address] Respiratory pathogens detect ion panel by molecular detection methodOrdered By: Shayy Dodson on 11-06-2024 Respiratory pathogens DNA and RNA panel JULISSA+probe (Resp) [facility] Retic Panelon 11-06-2024 IM RET FRACTION 9.90 Normal 3.00-15.90 [facility] Comment on above: Performed By: #### L 3890.6102, L3400.8500, L509.8002, L3890.6202, L3100.0300, L3890.6301, L3400.8000, L504.2610, L3100.5850, L3890.4000 #### [facility] [address] [place], [place], [address] RET-HE 29.6 pg Low 30-35 [facility] Comment on above: Performed By: #### L 3890.6102, L3400.8500, L509.8002, L3890.6202, L3100.0300, L3890.6301, L3400.8000, L504.2610, L3100.5850, L3890.4000 #### [facility] [address] [place], [place], [id number] Retic Count 1.09 Normal 0.5-1.5 [facility] Comment on above: Performed By: #### L 3890.6102, L3400.8500, L509.8002, L3890.6202, L3100.0300, L3890.6301, L3400.8000, L504.2610, L3100.5850, L3890.4000 #### [facility] [address] [place], [place], [address] Reticulocyte hemoglobin equi valent (RET-He) measurementOrdered By: Shayy Dodson on 11-06-2024 Hemoglobin (Reticulocytes) [Entitic mass] 29.6 pg Low 30-35 [facility] Reticulocytes Auto (Bld) [#/ Vol]Ordered By: Shayy Dodson on 11-06-2024 Reticulocytes/100 RBC (Bld) 1.09 % 0.5-1.5 [facility] Screening urine fentanyl hyun surementOrdered By: Shayy Dodson on 11-06-2024 fentaNYL Screen Ql (U) Negative [facility] Serum classic neutrophil cyt oplasmic antibody assay (units/volume)Ordered By: Shayy Dodson on 11-06-2024 Neutrophil cytoplasmic Ab.classic Qn (S) <1:20 titer Neg:<1:20 [facility] Serum creatinine measurement (mass/volume)Ordered By: Parish Frias on 11-06-2024 Creatinine [Mass/Vol] 0.80 mg/dL 0.70-1.20 [facility] Serum globulin measurementOr dered By: Parish Frias on 11-06-2024 Globulin (S) [Mass/Vol] 3.3 g/dL 2.2-4.2 [facility] Serum glucose measurement (m ass/volume)Ordered By: Parish Frias on 11-06-2024 Glucose [Mass/Vol] 105 mg/dL High 70-99 [facility] Serum or plasma C reactive p rotein measurement (mass/volume)Ordered By: Shayy Dodson on 11-06-2024 CRP [Mass/Vol] 56.70 mg/L High 0.0-3.0 [facility] Serum or plasma alanine foss otransferase (ALT) measurementOrdered By: Parish Frias on 11-06-2024 ALT [Catalytic activity/Vol] 42 U/L High <35 [facility] Serum or plasma albumin eula urement (mass/volume)Ordered By: aPrish Frias on 11-06-2024 Albumin [Mass/Vol] 3.2 g/dL Low 3.5-5.0 [facility] Serum or plasma albumin/glob ulin mass ratioOrdered By: Parish Frias on 11-06-2024 Albumin/Globulin [Mass ratio] 1.0 {ratio} 0.9-2.4 [facility] Serum or plasma alkaline aida sphatase measurementOrdered By: Parishmarko Frias on 11-06-2024 ALP [Catalytic activity/Vol] 429 U/L High 35-104 [facility] Serum or plasma calcium eula urement (mass/volume)Ordered By: Parish Frias on 11-06-2024 Calcium [Mass/Vol] 9.0 mg/dL 7.6-11.0 [facility] Serum or plasma ferritin hyun surement (mass/volume)Ordered By: Shayy Dodson on 11-06-2024 Ferritin [Mass/Vol] 1130 ng/mL High 22-378 [facility] Serum or plasma iron saturat ion measurement (mass fraction)Ordered By: Shayy Dodson on 11-06-2024 Iron saturation [Mass fraction] 10.4 % Low 13-59 [facility] Comment on above: Previous reported re sult: 10.0 %Edited by: MARIA GUADALUPE on 11/06/24:1944 AMENDED REPORT 11/06/241944 IRON SATURATION previously reported as: 10.0 L % Serum or plasma urea nitroge n measurement (mass/volume)Ordered By: Parish Frias on 11-06-2024 Urea nitrogen [Mass/Vol] 13 mg/dL 4-19 [facility] Serum perinuclear neutrophil cytoplasmic antibody titer by immunofluorescenceOrdered By: Shayy Dodson on 11-06-2024 Neutrophil cytoplasmic Ab.perinuclear IF (S) [Titer] <1:20 titer Neg:<1:20 [facility] Comment on above: The presence of posi tive fluorescence exhibiting P-ANCA orC-ANCA patterns alone is not specific for the diagnosis ofWegener's Granulomatosis (WG) or microscopic polyangiitis.Decisions about treatment should not be based solely onANCA IFA results. The [employer] ANCA [employer] Consensusrecommends follow up testing of positive sera with both PA-3 and MPO-ANCA enzyme immunoassays. As many as 5% serumsamples are positive only by EIA. Ref. AM J Clin [id number];111:507-513. Sodium levelOrdered By: Parish Frias on 11-06-2024 Sodium [Moles/Vol] 135 mmol/L 133-145 [facility] Squamous epithelial cells de tection in urine sediment by light microscopyOrdered By: Walt Krishnan on 11-06-2024 Epithelial cells.squamous LM Ql (Urine sed) 0-5 SEEN /hpf 5-10 [facility] Strep pneumoniae Antig(UR,CS F)on 11-06-2024 STPAG Comments: [...] Test Negative URINE (See interpretation below) Normal [facility] Comment on above: Performed By: #### L 3890.6102, L3400.8500, L509.8002, L3890.6202, L3100.0300, L3890.6301, L3400.8000, L504.2610, L3100.5850, L3890.4000 #### [facility] [address] [place], [place], [id number] Total proteinOrdered By: Parish Frias on 11-06-2024 Protein [Mass/Vol] 6.5 g/dL 5.9-8.4 [facility] Urinalysis, Completeon 11-06 EPI,SQUAMOUS 0-5 SEEN Normal 5-10 [facility] Comment on above: Order Comment: Reaso n for Exam: transaminitis Performed By: #### L 3890.6102, L3400.8500, L509.8002, L3890.6202, L3100.0300, L3890.6301, L3400.8000, L504.2610, L3100.5850, L3890.4000 #### [facility] [address] [place], [address] (676) RBC 0-5 SEEN Normal 0-5 [facility] Comment on above: Order Comment: Reaso n for Exam: transaminitis Performed By: #### L 3890.6102, L3400.8500, L509.8002, L3890.6202, L3100.0300, L3890.6301, L3400.8000, L504.2610, L3100.5850, L3890.4000 #### [facility] [address] [place], [place], [phone] (624) WBC 0-5 SEEN Normal 0-5 [facility] Comment on above: Order Comment: Reaso n for Exam: transaminitis Performed By: #### L 3890.6102, L3400.8500, L509.8002, L3890.6202, L3100.0300, L3890.6301, L3400.8000, L504.2610, L3100.5850, L3890.4000 #### [facility] [address] [place], [address] BACTERIA 0 SEEN Normal None Seen [facility] Comment on above: Order Comment: Reaso n for Exam: transaminitis Performed By: #### L 3890.6102, L3400.8500, L509.8002, L3890.6202, L3100.0300, L3890.6301, L3400.8000, L504.2610, L3100.5850, L3890.4000 #### [facility] [address] [place], [address] Mucus Ql (Urine sed) 0 SEEN Normal [facility] Comment on above: Order Comment: Reaso n for Exam: transaminitis Performed By: #### L 3890.6102, L3400.8500, L509.8002, L3890.6202, L3100.0300, L3890.6301, L3400.8000, L504.2610, L3100.5850, L3890.4000 #### [facility] [address] [place], [address] Urine Drug Screen (VISTA)on 11-06-2024 AMPHETAMINES Negative Normal <1000 ng/mL [facility] Comment on above: Performed By: #### L 505.5000 ####[facility] [address] [place], [address] BARBITIURATES Negative Normal < 200 ng/mL [facility] Comment on above: Performed By: #### L 505.5000 ####[facility] [address] [place], [address] BENZODIAZIPINE Negative Normal < 200 ng/mL [facility] Comment on above: Performed By: #### L 505.5000 ####[facility] [address] [place] [id number] BUP Ur Drug Scr Negative Normal < 200 ng/mL [facility] Comment on above: Performed By: #### L 505.5000 ####[facility] [address] [facility] [address] COCAINE Negative Normal < 300 ng/mL [facility] Comment on above: Performed By: #### L 505.5000 ####[facility] [address] [place] [id number] Fentanyl Negative Normal [facility] Comment on above: Performed By: #### L 505.5000 ####[facility] [address] [place] [address] METHADONE Negative Normal < 300 ng/mL [facility] Comment on above: Performed By: #### L 505.5000 ####[facility] [address] [place] [address] OPIATES Negative Normal < 300 ng/mL [facility] Comment on above: Performed By: #### L 505.5000 ####[facility] [address] [place] [address] OXYCODONE Negative Normal < 100 ng/mL [facility] Comment on above: Performed By: #### L 505.5000 ####[facility] [address] [place] [address] PCP Negative Normal < 25 ng/mL [facility] Comment on above: Performed By: #### L 505.5000 ####[facility] [address] [place] [address] THC Negative Normal < 50 ng/mL [facility] Comment on above: Performed By: #### L 505.5000 ####[facility] [address] [place] [id number] AMPHETAMINES Normal <1000 ng/mL [facility] Comment on above: Result Comment: DUPL ICATE ORDER, CONFIRMED WITH MARK (PCU) Performed By: #### L 3890.6102, L3400.8500, L509.8002, L3890.6202, L3100.0300, L3890.6301, L3400.8000, L504.2610, L3100.5850, L3890.4000 #### [facility] [address] [place], [place], [id number] BARBITIURATES Normal < 200 ng/mL [facility] Comment on above: Result Comment: DUPL ICATE ORDER, CONFIRMED WITH MARK (PCU) Performed By: #### L 3890.6102, L3400.8500, L509.8002, L3890.6202, L3100.0300, L3890.6301, L3400.8000, L504.2610, L3100.5850, L3890.4000 #### [facility] [address] [place], [place], [phone] BENZODIAZIPINE Normal < 200 ng/mL [facility] Comment on above: Result Comment: DUPL ICATE ORDER, CONFIRMED WITH MARK (PCU) Performed By: #### L 3890.6102, L3400.8500, L509.8002, L3890.6202, L3100.0300, L3890.6301, L3400.8000, L504.2610, L3100.5850, L3890.4000 #### [facility] [address] [place], [place], [phone] [phone] Ur Drug Scr Normal < 200 ng/mL [facility] Comment on above: Result Comment: DUPL ICATE ORDER, CONFIRMED WITH MARK (PCU) Performed By: #### L 3890.6102, L3400.8500, L509.8002, L3890.6202, L3100.0300, L3890.6301, L3400.8000, L504.2610, L3100.5850, L3890.4000 #### [facility] [address] [place], [place], [id number] COCAINE Normal < 300 ng/mL [facility] Comment on above: Result Comment: DUPL ICATE ORDER, CONFIRMED WITH MARK (PCU) Performed By: #### L 3890.6102, L3400.8500, L509.8002, L3890.6202, L3100.0300, L3890.6301, L3400.8000, L504.2610, L3100.5850, L3890.4000 #### [facility] [address] [place], [place], [id number] Fentanyl Normal [facility] Comment on above: Result Comment: DUPL ICATE ORDER, CONFIRMED WITH MARK (PCU) Performed By: #### L 3890.6102, L3400.8500, L509.8002, L3890.6202, L3100.0300, L3890.6301, L3400.8000, L504.2610, L3100.5850, L3890.4000 #### [facility] [address] [place], [place], [phone] METHADONE Normal < 300 ng/mL [facility] Comment on above: Result Comment: DUPL ICATE ORDER, CONFIRMED WITH MARK (PCU) Performed By: #### L 3890.6102, L3400.8500, L509.8002, L3890.6202, L3100.0300, L3890.6301, L3400.8000, L504.2610, L3100.5850, L3890.4000 #### [facility] [address] [place], [place], [id number] OPIATES Normal < 300 ng/mL [facility] Comment on above: Result Comment: DUPL ICATE ORDER, CONFIRMED WITH MARK (PCU) Performed By: #### L 3890.6102, L3400.8500, L509.8002, L3890.6202, L3100.0300, L3890.6301, L3400.8000, L504.2610, L3100.5850, L3890.4000 #### [facility] [address] [place], [address] OXYCODONE Normal < 100 ng/mL [facility] Comment on above: Result Comment: DUPL ICATE ORDER, CONFIRMED WITH MARK (PCU) Performed By: #### L 3890.6102, L3400.8500, L509.8002, L3890.6202, L3100.0300, L3890.6301, L3400.8000, L504.2610, L3100.5850, L3890.4000 #### [facility] [address] [place], [address] PCP Normal < 25 ng/mL [facility] Comment on above: Result Comment: DUPL ICATE ORDER, CONFIRMED WITH MARK (PCU) Performed By: #### L 3890.6102, L3400.8500, L509.8002, L3890.6202, L3100.0300, L3890.6301, L3400.8000, L504.2610, L3100.5850, L3890.4000 #### [facility] [address] [place], [address] THC Normal < 50 ng/mL [facility] Comment on above: Result Comment: DUPL ICATE ORDER, CONFIRMED WITH MARK (PCU) Performed By: #### L 3890.6102, L3400.8500, L509.8002, L3890.6202, L3100.0300, L3890.6301, L3400.8000, L504.2610, L3100.5850, L3890.4000 #### [facility] [address] [place], [address] Urine Legionella pneumophila antigen detectionOrdered By: Shayy Dodson on 11-06-2024 L. pneumophila Ag Ql (U) [facility] Urine benzodiazepine levelOr dered By: Shayy Dodson on 11-06-2024 Benzodiazepines Ql (U) Negative < 200 ng/mL [facility] Urine clarityOrdered By: Saúl Krishnan on 11-06-2024 Clarity (U) Clear Clear [facility] Urine cocaine levelOrdered B y: Shayy Dodson on 11-06-2024 Cocaine Ql (U) Negative < 300 ng/mL [facility] Urine color determinationOrd ered By: Walt Krishnan on 11-06-2024 Color (U) Straw Yellow [facility] Urine suzvb-1-gjdffelhdtrzdf abinol (THC) measurementOrdered By: Shayy Dodson on 11-06-2024 Cannabinoids Screen Ql (U) Negative < 50 ng/m L [facility] Urine glucose detectionOrder ed By: Walt Krishnan on 11-06-2024 Glucose Ql (U) Normal mg/dl Normal [facility] Urine leukocyte esterase det ection by dipstickOrdered By: Walt Krishnan on 11-06-2024 Leukocyte esterase Test strip Ql (U) Negative Negative [facility] Urine pHOrdered By: Walt Krishnan on 11-06-2024 pH (U) 6.5 [pH] 5.0 - 8.0 [facility] Urine phencyclidine (PCP) de tectionOrdered By: Shayy Dodson on 11-06-2024 Phencyclidine Ql (U) Negative < 25 ng/mL [facility] Urine testOrdered By: Shayy Dodson on 11-06-2024 HCG ( test) Ql (U) Negative [facility] Comment on above: Very dilute urine sp ecimens, as indicated by a low specificgravity, may not contain product sales representative levels of hCG. If is still suspected, a first morning urinespecimen should be collected 48 hours later and tested. Urine sediment bacteria coun t by microscopy (number/high power field)Ordered By: Walt Krishnan on 11-06-2024 Bacteria LM.HPF (Urine sed) [#/Area] 0 /[HPF] None Seen [facility] Urine specific gravity measu rementOrdered By: Walt Krishnan on 11-06-2024 Specific gravity (U) [Rel density] 1.010 1.002-1.030 [facility] Urine urobilinogen measureme ntOrdered By: Walt Krishnan on 11-06-2024 Urobilinogen Ql (U) Normal mg/dl Normal [facility] White blood cell (WBC) count Ordered By: Parish Frias on 11-06-2024 WBC (Bld) [#/Vol] 5.1 10*3/uL 4.4-11.0 [facility] White blood cell countOrdere d By: Walt Grahamen on 11-06-2024 White blood cell count 0-5 SEEN /hpf 0-5 [facility] CNOVon 01-15-2024 CNOV Office Visit (UCWSTR ) ALMA DELIA DOW ([id number]) 1985 F Date Time Provider Department 01/15/24 6:45 PM KENDRICK ACOSTA [facility] During your visit today, we recorded the following information about you: Temperature Pulse Respiration Blood pressure 98 degrees 101/minute 18/minute 138/84 Weight 73.5 kg Kendrick Acosta MD 01/15/2024 7:18 PM Signed Patient presents [...] DEVICE - BENZONATATE 100 MG CAPSULE Kendrick Acosta MD Allergies As of Date: 01/15/2024 Noted [...] [R05.1] Wheezing [R06.2] Order(s):STREP A MOLECULAR (POC) [[id number]] Order #: [id number]. #:[id number] albuterol HFA (PROVENTIL HFA, VENTOLIN HFA) 90 [...] Medications Dis (more content not included)... Normal [facility] STREP A MOLECULAR (POC)on Procedural Control Valid [facility] Strep A (POCT) Negative Negative [facility] CNOVon 08-21-2023 CNOV Office Visit (UCWSTR ) ALMA DELIA DOW ([id number]) 1985 F Date Time Provider Department 08/21/23 7:00 PM DEL WU 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 (Patient not [...] or rale (more content not included)... Normal [facility] CNOVon 04-23-2023 CNOV Office Visit (UCTR ) ALMA DELIA DOW ([id number]) 1985 F Date Time Provider Department 04/23/23 2:30 PM MARINA WINCHESTER [facility] During your visit today, we recorded the following information about you: Temperature Pulse Respiration Blood pressure 98.2 degrees 111/minute 16/minute 128/90 Weight 75.8 kg Marina Winchester APRN.TRAILER TRUCK DRIVER 04/23/2023 2:56 PM Signed This note was created using Freeze Tagriter. Subjective Alma Delia Zamzam Paloma is a [...] (FLONASE) 50 mcg/actuation nasal spray Use 1 [place] in each nostril once daily. - norelgestromin-ethiny [...] for 7 days. Encounter Status:Closed by MARINA WINCHESTER on 04/23/23 Normal [facility] Cervical or vagninal specime n microscopic examination by cytology stain (reported asOrdered By: Marilyn Hazel on 2022 Cytology report Cyto stain Doc (Cvx/Vag) Comment . [facility] Comment on above: The Pap smear [...] 33,Ordered By: Marilyn Hazel on 2022 HPV 16+18+31+33+35+39+45+51+52+ 56+58+59+66+68 DNA Probe+sig amp Ql (Cvx) Negative Negative [facility] Comment on above: This nucleic acid am plification test detects fourteen high-risk HPV types (16,18,31,33,35,39,45,51,52,56,58,59,66,68)without differentiation. Laboratory - CytologyOrdered By: Marilyn Hazel on 2022 Movie Actor Cyto stain Nom (Cvx/Vag) [ID] Comment . [facility] Comment on above: Nitin Guthrie, Cyto technologist (ASCP) Laboratory - Miscellaneous t estsOrdered By: Marilyn Hazel on 2022 Service comment (Unsp spec) [Interp] Comment . [facility] Comment on above: This liquid based Th inPrep(R) pap test was screened withthe use of an image guided system. Service comment (Unsp spec) [Interp] . . [facility] Liquid-based cerv Pap + CT/G C by JULISSA w reflex to high-risk HPV for ASCUSOrdered By: Marilyn Hazel on 2022 Cytology report Cyto stain.thin prep Doc (Cvx/Vag) Comment . [facility] Comment on above: Criteria not met, HP V Genotype not performed.Performed at: - [facility] [id number] Director: Adele Nino MD, Phone: [phone] at: = - [facility] [id number] Director: Adele Nino MD, Phone: [phone] No Panel InformationOrdered By: Marilyn Hazel on 2022 Pathology report final diagnosis Narrative Comment . [facility] Comment on above: NEGATIVE FOR INTRAEP ITHELIAL LESION OR MALIGNANCY. Laboratory - Chemistry and C hemistry - challengeon 02-04-2022 HCG ( test) Ql (U) Negative [facility] Work Phone: Comment on above: Very dilute urine sp ecimens, as indicated by a low specificgravity, may not contain product sales representative levels of hCG. If is still suspected, a first morning urinespecimen should be collected 48 hours later and tested. No Panel Informationon 01-28 Radiology Study observation (narrative) [facility] XR Ribs - right Views and Ch est PAon 01-28-2021 IMPRESSION: No acute findings. Wallcovering Hanger: SILAS Transcribe Date/Time: Jan 28 2021 4:50P [...] right rib fracture. DIVISION OF RADIOLOGY Provider, [facility] - 01/28/2021 * * *Final Report* [...] rib fracture. IMPRESSION IMPRESSION: No acute findings. Wallcovering Hanger: [employer]pi[employer] Transcribe Date/Time: Jan 28 2021 4:50P Dictated by : JUNG ASHLEY MD This examination was interpreted and the report reviewed and electronically signed by: JUNG ASHLEY MD on Jan 28 2021 4:55PM EST [facility] XR Shoulder - right 3 Viewso n 01-28-2021 IMPRESSION: No acute radiographic abnormalities seen in the right shoulder. Wallcovering Hanger: [employer] Transcribe Date/Time: Jan 28 2021 4:49P Dictated by : PRITESH ROBINS MD This examination was interpreted and the report reviewed and electronically signed by: PRITESH ROBINS MD on Jan 28 2021 4:51PM [facility] DIVISION OF RADIOLOGY * * *Final Report* [...] soft tissue swelling. DIVISION OF RADIOLOGY Provider, [facility] - 01/28/2021 * * *Final Report* [...] radiographic abnormalities seen in the right shoulder. Wallcovering Hanger[facility] Transcribe Date/Time: Jan 28 2021 4:49P Dictated by : PRITESH ROBINS MD This examination was interpreted and the report reviewed and electronically signed by: PRITESH ROBINS MD on Jan 28 2021 4:51PM EST [facility] XR Shoulder - right 3 ViewsO rdered By: Cc Provider on 01-28-2021 [facility] Vital Signs Date Time Vital Sign Value Performing Clinician Facility 11-20-2024 17:00-0400 Diastolic blood pressure 59 mm[Hg] No Primary Care Physician [facility] 11-20-2024 17:00-0400 Heart rate 113 /min No Primary Care Physician [facility] 11-20-2024 17:00-0400 Inhaled oxygen flow rate 2 L/min No Primary Care Physician [facility] 11-20-2024 17:00-0400 Respiratory rate 32 /min No Primary Care Physician [facility] 11-20-2024 17:00-0400 SaO2% (BldA) [Mass fraction] 95 % No Primary Care Physician [facility] 11-20-2024 17:00-0400 Systolic blood pressure 91 mm[Hg] No Primary Care Physician [facility] 11-20-2024 16:49-0400 Body temperature 99.2 [degF] No Primary Care Physician [facility] 11-20-2024 13:35-0400 Body height 152.4 cm No Primary Care Physician [facility] 11-20-2024 13:35-0400 Body mass index (BMI) [Ratio] 21.9 kg/m2 No Primary Care Physician [facility] 11-20-2024 13:35-0400 Body weight 50.83 kg No Primary Care Physician [facility] 11-09-2024 14:14-0400 Body temperature 97.6 [degF] No Primary Care Physician [facility] 11-09-2024 14:14-0400 Diastolic blood pressure 89 mm[Hg] No Primary Care Physician [facility] 11-09-2024 14:14-0400 Heart rate 87 /min No Primary Care Physician [facility] 11-09-2024 14:14-0400 Respiratory rate 18 /min No Primary Care Physician [facility] 11-09-2024 14:14-0400 SaO2% (BldA) [Mass fraction] 100 % No Primary Care Physician [facility] 11-09-2024 14:14-0400 Systolic blood pressure 112 mm[Hg] No Primary Care Physician [facility] 11-08-2024 11:18-0400 Inhaled oxygen flow rate 10 L/min No Primary Care Physician [facility] 11-07-2024 10:17-0400 Body height 152.4 cm No Primary Care Physician [facility] 11-07-2024 10:17-0400 Body weight 55.8 kg No Primary Care Physician [facility] 11-06-2024 16:46-0400 Body mass index (BMI) [Ratio] 24 kg/m2 No Primary Care Physician [facility] 11-06-2024 16:21-0400 Body temperature 102.4 [degF] No Primary Care Physician [facility] 11-06-2024 16:21-0400 Diastolic blood pressure 84 mm[Hg] No Primary Care Physician [facility] 11-06-2024 16:21-0400 Heart rate 123 /min No Primary Care Physician [facility] 11-06-2024 16:21-0400 Respiratory rate 18 /min No Primary Care Physician [facility] 11-06-2024 16:21-0400 SaO2% (BldA) [Mass fraction] 100 % No Primary Care Physician [facility] 11-06-2024 16:21-0400 Systolic blood pressure 111 mm[Hg] No Primary Care Physician [facility] 11-06-2024 16:04-0400 Inhaled oxygen flow rate 2 L/min No Primary Care Physician [facility] 11-06-2024 11:15-0400 Body height 152.4 cm No Primary Care Physician [facility] 11-06-2024 11:15-0400 Body mass index (BMI) [Ratio] 23.3 kg/m2 No Primary Care Physician [facility] 11-06-2024 11:15-0400 Body weight 54.1 kg No Primary Care Physician [facility] 01-15-2024 18:47-0400 Body mass index (BMI) [Ratio] 31.65 kg/m2 Kendrick Acosta MD Work Phone: [facility] 01-15-2024 18:47-0400 Body temperature 98.01 [degF] Kendrick Acosta MD Work Phone: [facility] 01-15-2024 18:47-0400 Body weight 73.5 kg Kendrick Acosta MD Work Phone: [facility] 01-15-2024 18:47-0400 Diastolic blood pressure 84 mm[Hg] Kendrick Acosta MD Work Phone: [facility] 01-15-2024 18:47-0400 Heart rate 101 /min Kendrick Acosta MD Work Phone: [facility] 01-15-2024 18:47-0400 Respiratory rate 18 /min Kendrick Acosta MD Work Phone: [facility] 01-15-2024 18:47-0400 SaO2% (BldA) [Mass fraction] 98 % Kendrick Acosta MD Work Phone: [facility] 01-15-2024 18:47-0400 Systolic blood pressure 138 mm[Hg] Kendrick Acosta MD Work Phone: [facility] 08-21-2023 18:51-0400 Body temperature 98.8 [degF] Del Pendlebury ENGINEER PROCESS.TRAILER TRUCK DRIVER Work Phone: [facility] 08-21-2023 18:51-0400 Body weight 73.3 kg Del Pendledestinee ENGINEER PROCESS.TRAILER TRUCK DRIVER Work Phone: [facility] 08-21-2023 18:51-0400 Diastolic blood pressure 78 mm[Hg] Del Pendlebury ENGINEER PROCESS.TRAILER TRUCK DRIVER Work Phone: [facility] 08-21-2023 18:51-0400 Heart rate 94 /min Del Pendlebury ENGINEER PROCESS.TRAILER TRUCK DRIVER Work Phone: [facility] 08-21-2023 18:51-0400 Respiratory rate 16 /min Del Pendlebury ENGINEER PROCESS.TRAILER TRUCK DRIVER Work Phone: [facility] 08-21-2023 18:51-0400 SaO2% (BldA) [Mass fraction] 97 % Del Pendledestinee ENGINEER PROCESS.TRAILER TRUCK DRIVER Work Phone: [facility] 08-21-2023 18:51-0400 Systolic blood pressure 122 mm[Hg] Del Pendledestinee ENGINEER PROCESS.TRAILER TRUCK DRIVER Work Phone: [facility] 06-08-2023 12:59-0500 Body height 152.4 cm No Primary Care Physician [facility] 06-08-2023 12:59-0500 Body mass index (BMI) [Ratio] 32.8 kg/m2 No Primary Care Physician [facility] 06-08-2023 12:59-0500 Body temperature 98.3 [degF] No Primary Care Physician [facility] 06-08-2023 12:59-0500 Body weight 76.31 kg No Primary Care Physician [facility] 06-08-2023 12:59-0500 Diastolic blood pressure 74 mm[Hg] No Primary Care Physician [facility] 06-08-2023 12:59-0500 Heart rate 110 /min No Primary Care Physician [facility] 06-08-2023 12:59-0500 Respiratory rate 16 /min No Primary Care Physician [facility] 06-08-2023 12:59-0500 SaO2% (BldA) [Mass fraction] 98 % No Primary Care Physician [facility] 06-08-2023 12:59-0500 Systolic blood pressure 110 mm[Hg] No Primary Care Physician [facility] 04-23-2023 14:42-0500 Body temperature 98.2 [degF] Marina Winchester APRN.TRAILER TRUCK DRIVER Work Phone: [facility] 04-23-2023 14:42-0500 Body weight 75.75 kg Marina Winchester APRN.TRAILER TRUCK DRIVER Work Phone: [facility] 04-23-2023 14:42-0500 Diastolic blood pressure 90 mm[Hg] Marina Winchester APRN.TRAILER TRUCK DRIVER Work Phone: [facility] 04-23-2023 14:42-0500 Heart rate 111 /min Marina Winchester APRN.TRAILER TRUCK DRIVER Work Phone: [facility] 04-23-2023 14:42-0500 Respiratory rate 16 /min Marina Winchester APRN.TRAILER TRUCK DRIVER Work Phone: [facility] 04-23-2023 14:42-0500 SaO2% (BldA) [Mass fraction] 98 % Marina Winchester APRN.TRAILER TRUCK DRIVER Work Phone: [facility] 04-23-2023 14:42-0500 Systolic blood pressure 128 mm[Hg] Marina Winchester APRN.TRAILER TRUCK DRIVER Work Phone: [facility] 02-04-2022 15:41-0400 Body temperature 97.9 [degF] [facility] Work Phone: 02-04-2022 15:41-0400 Diastolic blood pressure 76 mm[Hg] [facility] Work Phone: 02-04-2022 15:41-0400 Heart rate 93 /min [facility] Work Phone: 02-04-2022 15:41-0400 Respiratory rate 16 /min [facility] Work Phone: 02-04-2022 15:41-0400 SaO2% (BldA) [Mass fraction] 92 % [facility] Work Phone: 02-04-2022 15:41-0400 Systolic blood pressure 109 mm[Hg] [facility] Work Phone: 02-04-2022 11:29-0400 Body height 152.4 cm [facility] Work Phone: 02-04-2022 11:29-0400 Body mass index (BMI) [Ratio] 33.6 kg/m2 [facility] Work Phone: 02-04-2022 11:29-0400 Body weight 78.1 kg [facility] Work Phone: 01-29-2022 23:17-0400 Respiratory rate 18 /min [facility] Work Phone: 01-29-2022 21:11-0400 Body mass index (BMI) [Ratio] 32.2 kg/m2 [facility] Work Phone: 01-29-2022 21:11-0400 Body temperature 98.9 [degF] [facility] Work Phone: 01-29-2022 21:11-0400 Body weight 74.84 kg [facility] Work Phone: 01-29-2022 21:11-0400 Diastolic blood pressure 96 mm[Hg] [facility] Work Phone: 01-29-2022 21:11-0400 Heart rate 141 /min [facility] Work Phone: 01-29-2022 21:110400 SaO2% (BldA) [Mass fraction] 99 % [facility] Work Phone: 01-29-2022 21:110400 Systolic blood pressure 136 mm[Hg] [facility] Work Phone: Encounters Encounter Date Encounter Type Care Provider Facility Start: 11-20-2024 Evaluation and management of inpatient Dr. Cody Martínez DO -Intensive Care Unit Work Phone: Start: 11-19-2024 Patient encounter procedure Tia [facility] LABORATORY ASSOCIATE-C -Laboratory Haydee Palomares Start: 11-19-2024 ambulatory [facility] Facility :[facility] Start: 11-09-2024 Non-patient / Non-visit Dr. Pb Adams DO [facility] Work Phone: Start: 11-08-2024 End: 11-08-2024 ambulatory No Primary Care Physician Facility:[facility] Start: 11-08-2024 End: 11-08-2024 Non-patient / Non-visit Dr. Rangel Cardona DO [facility] Start: 11-07-2024 Non-patient / Non-visit Dr. Rangel Cardona DO [facility] Start: 11-07-2024 Non-patient / Non-visit Dr. Mora López MD [facility] Work Phone: Start: 11-06-2024 Non-patient / Non-visit Dr. Shayy Dodson DO [facility] Work Phone: Start: 11-06-2024 ambulatory No Primary Car e Physician Facility:[facility] Start: 11-06-2024 End: 11-09-2024 Evaluation and management of inpatient Dr. Shayy Dodson DO -Progressive Care Unit Work Phone: Start: 01-15-2024 End: 01-15-2024 ambulatory Facility:[facility] Start: 01-15-2024 End: 01-15-2024 Patient encounter procedure Kendrick Acosta MD Work Phone: [facility] Comment on above: Sore throat (Primary Dx); Acute cough; Wheezing Start: 08-21-2023 End: 08-21-2023 ambulatory Facility:[facility] Start: 08-21-2023 End: 08-21-2023 Office outpatient visit 15 minutes Del Wu APRN.TRAILER TRUCK [employer]IVER Work Phone: [facility] Comment on above: Eustachian tube dysf unction, bilateral (Primary Dx) Start: 06-13-2023 Patient encounter procedure No Primary Care Physician [facility] Work Phone: Start: 06-08-2023 End: 06-08-2023 ambulatory No Primary Care Physician [facility] Work Phone: Start: 06-08-2023 End: 06-08-2023 Patient encounter procedure No Primary Care Physician [facility] Work Phone: Start: 06-08-2023 End: 06-08-2023 Patient encounter procedure No Primary Care Physician [facility] Work Phone: Start: 06-08-2023 End: 06-08-2023 ambulatory No Primary Care Physician [facility] Work Phone: Start: 06-08-2023 End: 06-08-2023 Patient encounter procedure No Primary Care Physician [facility] Work Phone: Start: 04-23-2023 End: 04-23-2023 ambulatory Facility:[facility] Start: 04-23-2023 End: 04-23-2023 Patient encounter procedure Marina Winchester APRN.TRAILER TRUCK DRIVER Work Phone: [facility] Comment on above: Acute otitis media, right (Primary Dx) Start: 2022 End: 2022 ambulatory [facility] Work Phone: Start: 2022 End: 2022 Patient encounter procedure [facility], [facility] Start: 02-04-2022 End: 02-04-2022 Admission to same day surgery center [facility] Start: 02-04-2022 End: 02-04-2022 ambulatory [facility] Work Phone: Start: 01-29-2022 End: 01-29-2022 Emergency department patient visit [facility]-Emergency Department Start: 01-28-2021 End: 01-28-2021 Subsequent hospital visit by physician [facility] Work Phone: Radiology Comment on above: Acute pain of right shoulder [M25.511] Procedures Date Procedure Procedure Detail Performing Clinician Start: 11-20-2024 X-ray of chest, PA a nd lateral views No Primary Care Physician Start: 11-20-2024 Estimated creatinine clearance No Primary Care Physician Start: 11-20-2024 Serum inorganic phos phate measurement No Primary Care Physician Start: 11-19-2024 Total iron binding c apacity measurement No Primary Care Physician Start: 11-09-2024 Gram stain microscopy N o Primary Care Physician Start: 11-09-2024 Respiratory microbial culture No Primary Care Physician Start: 11-08-2024 Gram stain microscopy N o Primary Care Physician Start: 11-08-2024 Respiratory microbial culture No Primary Care Physician Start: 11-08-2024 Bronchoscopy No Primary Care Physician Start: 11-08-2024 Estimated creatinine clearance No Primary Care Physician Start: 11-07-2024 Procedure No Primary Care Physician Comment on above: Test Ordered: [id number] Histoplasma Gal'jackie Ag UrHistoplasma Gal'jackie Ag Ur Negative Reference Range: <0.2 ng/mLPerformed at: [facility] [employer] [id number] Director: Kendrick Lubin MD, Phone: [phone] at: [facility] [employer] [id number] Director: Cullen Lema PhD, Phone: [phone] Start: 11-07-2024 Bacterial nucleic acid assay No Primary Care Physician Start: 11-07-2024 End: 11-07-2024 Polymerase chain reaction analysis No Primary Care Physician Start: 11-07-2024 Cryptococcus species antigen assay No Primary Care Physician Comment on above: Performed at: [facility] [address] [id number] Director: Kendrick Lubin MD, Phone: [phone] Start: 11-07-2024 Cytomegalovirus DNA assay No Primary Care Physician Comment on above: The quantitative ran ge of this assay is 200 to 1 millionIU/mL. Start: 11-07-2024 Israel-Gonzalez virus c apsid IgG measurement No Primary Care Physician Comment on above: Negative <18.0 Equiv ocal 18.0 - 21.9 Positive >21.9 Start: 11-07-2024 Israel-Gonzalez virus s erologic test No Primary Care Physician Comment on above: EBV Interpretation C hartKey: Antibody Present + Antibody Absent -Interpretation VCA-IgM VCA-IgG EBNA-IgGNo previous infection/ - - -SusceptiblePrimary infection (new + + -or recent)Past Infection +or- + +See comment below* + - -*Results indicate infection with EBV at some time however cannot predict the timing of the infection since antibodies to EBNA usually develop after primary infection or, alternatively, approximately 5-10% of patients with EBV never develop antibodies to EBNA. Start: 11-07-2024 Hepatitis A virus an tibody, total measurement No Primary Care Physician Comment on above: Comment: The HAV tot al antibody assay detects both IgG andIgM but does not differentiate between them. A negativeresult suggests susceptibility to infection. A positiveresult could be due to vaccination, previously resolvedinfection or active infection. Testing for HAV IgM shouldbe performed if active HAV infection is suspected. Labcorpoffers profiles that will automatically reflex positive HAVtotal antibody results to IgM (e.g., panel #[id number] HAVAntibody w/ Rfx).Performed at: - [facility] [id number] Director: Cullen Lema PhD, Phone: [phone] at: [facility] [address] [id number] Director: Kendrick Lubin MD, Phone: [phone] Start: 11-07-2024 Hepatitis C antibody measurement No Primary Care Physician Comment on above: Reactive: Presumptiv e evidence of antibodies to HCV. Follow CDC recommendations for supplemental testing.Non-Reactive: Antibodies to HCV were not detected; does not exclude the possibility of exposure to HCVReactive Results are presumptive evidence of antibodies to HCV. Follow CDC recommendations for supplemental testing.Order confirmation testing: HCV Quant by PCR testing - HCVPCR #[id number] Non Reactive: < 0.8 Equivocal: >/= 0.8 to < 1.0 Reactive: >/= 1.0The CDC requires that a reactive/equivocal HCV antibody result be sent out for confirmation. HCV Quant by PCR testing. Start: 11-07-2024 In-vitro immunologic test No Primary Care Physician Comment on above: QuantiFERON-TB Gold Plus is a qualitative indirect test forM tuberculosis infection (including disease) and isintended for use in conjunction with risk assessment,radiography, and other medical and diagnostic evaluations.The QuantiFERON-TB Gold Plus result is determined bysubtracting the Nil value from either TB antigen (Ag)value. The Mitogen tube serves as a control for the test. No response to M tub erculosis antigens detected.Infection with M tuberculosis is unlikely, but high riskindividuals should be considered for additional testing(ATS/IDSA/CDC Clinical Practice Guidelines, 2017). Thereference range is an Antigen minus Nil result of <0.35IU/mL.The specimen received for QuantiFERON testing was incubatedby the ordering institution. Specific procedures outlinedin our Directory of Services and in the package insert forthe QuantiFERON Gold (In Tube) test must be followed toenable for proper stimulation of cells for the productionof interferon gamma. Chemiluminescence immunoassaymethodology Start: 11-07-2024 PCR test for HIV 1 No P rimary Care Physician Comment on above: The reportable range for this assay is 20 to 10,000,000copies HIV-1 RNA/mL. Start: 11-07-2024 Serologic test for syphilis No Primary Care Physician Start: 11-07-2024 Serum inorganic phos phate measurement No Primary Care Physician Start: 11-07-2024 Carbon dioxide measu rement, partial pressure No Primary Care Physician Start: 11-07-2024 Gases blood o2 satur ation only direct eula No Primary Care Physician Start: 11-07-2024 Measurement of parti al pressure of oxygen in blood No Primary Care Physician Start: 11-07-2024 Oxygen measurement No P rimary Care Physician Start: 11-06-2024 Bacterial nucleic acid assay No Primary Care Physician Start: 11-06-2024 Methadone measurement, urine No Primary Care Physician Start: 11-06-2024 Urnls dip stick/tabl et reagent auto microscopy No Primary Care Physician Start: 11-06-2024 Antibody measurement No Primary Care Physician Comment on above: The atypical pANCA p attern has been observed in asignificant percentage of patients with ulcerative colitis,primary sclerosing cholangitis and autoimmune hepatitis.Performed at: [address] [id number] Director: Cullen Lema PhD, Phone: [phone] Start: 11-06-2024 Immature reticulocyte fraction No Primary Care Physician Start: 11-06-2024 Total iron binding c apacity measurement No Primary Care Physician Start: 11-06-2024 CT angiography of ch est with contrast No Primary Care Physician Start: 11-06-2024 Blood culture No Primar y Care Physician Start: 11-06-2024 Legionella pneumophi la antigen assay No Primary Care Physician Start: 11-06-2024 Nucleic acid assay No [facility] Phys[facility] Start: 11-06-2024 SARS-CoV-2, Influenz a & RSV (PCR) No Primary Care Physician Start: 11-06-2024 End: 11-06-2024 Streptococcus pneumoniae antigen assay No Primary Care Physician Start: 11-06-2024 X-ray of chest, PA a nd lateral views No Primary Care Physician Start: 11-06-2024 Estimated creatinine clearance No Primary Care Physician Start: 01-15-2024 STREP A MOLECULAR (POC) Samantha Guzmán APRN.TRAILER TR[employer] DRIVER Work Phone: Start: 06-08-2023 CT of upper limb wit hout contrast No Primary Care Physician Start: 06-08-2023 Plain x-ray of wrist No Primary Care Physician Start: 02-04-2022 Fluoroscopic guidance Start: 02-04-2022 Open reduction of fr acture with internal fixation Start: 01-29-2022 X-ray of radius and ulna Start: 01-28-2021 Radex ribs uni w/pos teroant ch minimum 3 views Nalini Allen APRN.TRAILER TRUCK DRIVER Work Phone: Plan of Treatment Date Care Activity Detail Author Start: 11-05-2026 Urine microalbumin profile DTaP,Tdap,Td Vaccine (2 - Td or Tdap) [facility] Start: 11-21-2024 [facility] Start: 11-20-2024 Assessment of risk of venous thromboembolism [facility] Start: 11-20-2024 Bacteria identified in Sputum by Culture [facility] Start: 11-20-2024 Consultation [facility] Start: 11-20-2024 Continuous pulse oximetry [facility] Start: 11-20-2024 Elevation of head of bed [facility] Start: 11-20-2024 Incentive spirometry [facility] Start: 11-20-2024 Insertion of catheter into peripheral vein [facility] Start: 11-20-2024 Measuring intake and output [facility] Start: 11-20-2024 Oxygen therapy [facility] Start: 11-20-2024 Providing care according to standard [facility] Start: 11-20-2024 Referral to occupational therapist [facility] Start: 11-20-2024 Referral to service [facility] Start: 11-20-2024 Respiratory secretion precautions [facility] Start: 11-20-2024 Taking nasal swab [facility] Start: 11-20-2024 Vital signs measurements [facility] Start: 11-20-2024 [facility] Start: 11-20-2024 Following clinical pathway protocol [facility] Start: 11-20-2024 Legionella pneumophila Ag [Presence] in Urine [facility] Start: 11-20-2024 Streptococcus pneumoniae antigen assay [facility] Start: 11-20-2024 Verification routine [facility] Start: 11-20-2024 Admission procedure [facility] Start: 11-20-2024 [facility] Start: 11-20-2024 Bacteria identified in Blood by Culture Blood Culture [facility] Start: 11-20-2024 [facility] Start: 11-09-2024 Microscopic observation [Identifier] in Unspecified specimen by Gram stain [facility] Start: 11-09-2024 Respiratory Culture Respiratory Culture [facility] Start: 11-09-2024 Patient discharge [facility] Start: 11-08-2024 Acid Fast Bacilli Culture Acid Fast Bacilli Culture [facility] Start: 11-08-2024 Acid Fast Bacilli Smear Acid Fast Bacilli Smear [facility] Start: 11-08-2024 Fungal Culture Fungal Culture [facility] Start: 11-08-2024 Microscopic observation [Identifier] in Unspecified specimen by Gram stain [facility] Start: 11-08-2024 Virus Culture Virus Culture [facility] Start: 11-08-2024 Acid fast bacilli culture [facility] Start: 11-08-2024 End: 11-08-2024 Respiratory microbial culture [facility] Start: 11-08-2024 [facility] Start: 11-07-2024 In-vitro immunologic test [facility] Start: 11-07-2024 End: 11-07-2024 Procedure [facility] Start: 11-07-2024 Toxoplasma gondii IgG Ab [Units/volume] in Serum [facility] Start: 11-07-2024 Consultation [facility] Start: 11-06-2024 [facility] Start: 11-06-2024 [facility] Start: 11-06-2024 [facility] Start: 11-06-2024 Following clinical pathway protocol [facility] Start: 11-06-2024 Ambulation without limitation [facility] Start: 11-06-2024 Assessment of risk of venous thromboembolism [facility] Start: 11-06-2024 Catheterization of vein [facility] Start: 11-06-2024 Consultation [facility] Start: 11-06-2024 Elevation of head of bed [facility] Start: 11-06-2024 Inhalation therapy procedure [facility] Start: 11-06-2024 Insertion of catheter into peripheral vein [facility] Start: 11-06-2024 Measuring intake and output [facility] Start: 11-06-2024 Oxygen therapy [facility] Start: 11-06-2024 Patient education [facility] Start: 11-06-2024 Physiotherapy of chest [facility] Start: 11-06-2024 Providing care according to standard [facility] Start: 11-06-2024 End: 11-06-2024 [facility] Start: 11-06-2024 Urine test [facility] Start: 11-06-2024 Bacteria identified in Sputum by Culture [facility] Start: 11-06-2024 Legionella pneumophila Ag [Presence] in Urine [facility] Start: 11-06-2024 Reticulocyte count [facility] Start: 11-06-2024 Streptococcus pneumoniae antigen assay [facility] Start: 11-06-2024 Hospital admission, emergency, from emergency room, medical nature [facility] Start: 11-06-2024 Verification routine [facility] Start: 11-06-2024 Admission procedure [facility] Start: 11-06-2024 Bacteria identified in Blood by Culture Blood Culture [facility] Start: 11-06-2024 Patient referral to dietitian [facility] Start: 02-04-2024 Covid-19 Vaccine () Covid-19 Vaccine () [facility] Start: 02-04-2024 Influenza vaccination Influenza Vaccine (#1) [facility] Start: 06-08-2023 Radex wrist complete minimum 3 views X-RAY EXAM OF WRIST [facility] Start: 06-05-2023 Depression Assessment Depression Assessment [facility] Start: 02-03-2023 Covid-19 Vaccine ( season) Covid-19 Vaccine ( season) [facility] Start: 02-03-2023 Influenza vaccination Influenza Vaccine (#1) [facility] Start: 06-05-2022 Depression Assessment Depression Assessment [facility] Start: 02-04-2022 Application of ice collar, cap or bag [facility] Work Phone: Start: 02-04-2022 Catheterization of vein [facility] Work Phone: Start: 02-04-2022 Elevation of affected extremity [facility] Work Phone: Start: 02-04-2022 Following clinical pathway protocol [facility] Work Phone: Start: 02-04-2022 Patient discharge [facility] Work Phone: Start: 02-04-2022 Procedure discontinued [facility] Work Phone: Start: 02-04-2022 Taking patient vital signs [facility] Work Phone: Start: 02-04-2022 Vital signs measurements [facility] Work Phone: Start: 02-04-2022 [facility] Work Phone: Start: 02-04-2022 Plain x-ray of wrist Wrist 2 Views [facility] Work Phone: Start: 02-04-2022 XR Wrist 2 Views [facility] Work Phone: Start: 02-04-2022 Medication education [facility] Work Phone: Start: 01-29-2022 Application short arm splint dynamic APPLY FOREARM SPLINT [facility] Work Phone: Start: 12-10-2018 Pap Testing Pap Testing [facility] Start: 12-10-2018 Screening for malignant neoplasm of cervix Pap Testing [facility] Start: 12-10-2016 Screening for malignant neoplasm of cervix Cervical Cancer Screening [facility] Start: 11-18-2015 HPV Testing HPV Testing [facility] Start: 11-18-2015 Screening for malignant neoplasm of cervix HPV Testing [facility] Start: 2004 Hepatitis B Vaccine (1 of 3 - 19+ 3-dose series) Hepatitis B Vaccine (1 of 3 - 19+ 3-dose series) [facility] Start: 11-18-2003 Anxiety Screening Anxiety Screening [facility] Start: 11-18-2003 Depression Screening Depression Screening [facility] Start: 11-18-2003 Hepatitis C Screening Hepatitis C Screening [facility] Start: 11-18-2003 Hepatitis C screening Hepatitis C Screening [facility] Start: 11-18-2003 HIV Screening HIV Screening [facility] Start: 11-18-2003 HIV screening HIV Screening [facility] Start: 11-18-1991 Pneumococcal vaccination [facility] Start: 05-19-1986 Covid-19 Vaccine (#1) Covid-19 Vaccine (#1) [facility] Start: 1985 Hepatitis B Vaccine (1 of 3 - 3-dose series) Hepatitis B Vaccine (1 of 3 - 3-dose series) [facility] Alanine aminotransfe rase [Enzymatic activity/volume] in Serum or Plasma [facility] Albumin [Mass/volume ] in Serum or Plasma [facility] Alkaline phosphatase [Enzymatic activity/volume] in Serum or Plasma [facility] Anion gap in Serum o r Plasma [facility] Antibody to lupus La protein measurement [facility] Antibody to Scl-70 measurement [facility] Antibody to SS-A measurement [facility] Bacteria identified in Sputum by Respiratory culture [facility] Basophil count [facility] Basophil percent differential count [facility] Bilirubin, total measurement [facility] BUN/Creatinine ratio [facility] C reactive protein [Mass/volume] in Serum or Plasma [facility] Calcium [Mass/volume ] in Serum or Plasma [facility] Carbon dioxide, tota l [Moles/volume] in Central venous blood [facility] CD3+CD4+ (T4 helper) cells [#/volume] in Blood [facility] Centromere protein B Ab [Units/volume] in Serum [facility] Chromatin Ab [Units/ volume] in Serum or Plasma [facility] Creatinine [Mass/vol ume] in Serum or Plasma [facility] Cryptococcus sp Ag [ Titer] in Unspecified specimen [facility] Cryptococcus species antigen assay [facility] Cytology report of B maldonado fluid Cyto stain [facility] Cytomegalovirus DNA [log units/volume] (viral load) in Plasma by JULISSA with probe detection [facility] Cytomegalovirus DNA assay [facility] DNA double strand Ab [Units/volume] in Serum [facility] Eosinophil percent differential count [facility] Eosinophils [#/volum e] in Blood [facility] Israel Gonzalez virus c apsid IgG Ab [Units/volume] in Serum [facility] Israel Gonzalez virus c apsid IgM Ab [Units/volume] in Serum [facility] Israel Gonzalez virus n uclear IgG Ab [Units/volume] in Cerebral spinal fluid [facility] Israel-Gonzalez virus serologic test [facility] Erythrocyte mean corpuscular volume determination [facility] Erythrocyte mean corpuscular volume determination [facility] Erythrocyte sediment ation rate [facility] Ferritin [Mass/volum e] in Serum or Plasma [facility] Fungus identified in Unspecified specimen by Culture [facility] Glucose [Mass/volume ] in Serum or Plasma [facility] Granulocyte percent differential count [facility] Hematocrit [Volume Fraction] of Blood [facility] Hematocrit [Volume Fraction] of Blood [facility] Hemoglobin [Mass/vol ume] in Blood [facility] Hemoglobin [Mass/vol ume] in Blood [facility] Hemoglobin distribut ion, width determination [facility] Hepatitis A virus Ab [Presence] in Serum [facility] HIV 1 RNA [#/volume] (viral load) in Unspecified specimen by JULISSA with probe detection [facility] HIV 1 RNA [Log #/vol ume] (viral load) in Unspecified specimen by JULISSA with probe detection [facility] Immature granulocyte s [#/volume] in Blood [facility] Iron [Mass/mass] in Unspecified specimen [facility] Iron saturation [Mas s Fraction] in Serum or Plasma [facility] Blossom-1 extractable nuc lear Ab [Units/volume] in Serum [facility] Leukocytes [#/volume ] in Blood [facility] Leukocytes [#/volume ] in Blood [facility] Lymphocyte count [facility] Lymphocyte percent differential count [facility] Mean corpuscular hem oglobin concentration determination [facility] Mean corpuscular hem oglobin concentration determination [facility] Mean corpuscular hem oglobin determination [facility] Mean corpuscular hem oglobin determination [facility] Measurement of renal function [facility] Methicillin resistan t Staphylococcus aureus (MRSA) DNA [Presence] in Nose by JULISSA with probe detection [facility] Monocyte count [facility] Monocyte percent differential count [facility] Mycobacterium sp samson ntified in Unspecified specimen by Organism specific culture [facility] Mycobacterium tuberc ulosis tuberculin stimulated gamma interferon [Presence] in Blood [facility] Neutrophil count [facility] Neutrophil count [facility] Neutrophil cytoplasm ic Ab.classic [Units/volume] in Serum [facility] Neutrophil cytoplasm ic Ab.classic [Units/volume] in Serum [facility] Neutrophil percent differential count [facility] Neutrophil percent differential count [facility] Nucleated red blood cell count procedure [facility] P-ANCA measurement [facility] P-ANCA measurement [facility] Patient Education ED Fracture, U pper Extremity [facility] Work Phone: Patient referral [facility] Work Phone: Percentage CD4 (T4 c ells) count [facility] Platelet count [facility] Platelets [#/volume] in Blood [facility] Potassium measurement [facility] Procalcitonin [Mass/ volume] in Serum or Plasma by Immunoassay [facility] Red blood cell count [facility] Red blood cell count [facility] Red cell distributio n width determination [facility] Respiratory pathogen s DNA and RNA panel - Respiratory specimen by JULISSA with probe detection [facility] Reticulocyte percent count [facility] [employer] antibody measurement [facility] Serum chloride measurement [facility] Olson extractable nu clear Ab [Presence] in Serum [facility] Sodium measurement [facility] Total iron binding c apacity measurement [facility] Total protein measurement [facility] Urea nitrogen [Mass/ volume] in Serum or Plasma [facility] Virus identified in Unspecified specimen by Culture [facility] Immunizations Immunization Date Immunization Notes Care Provider Fa cility 11-05-2016 tetanus toxoid, redu blake diphtheria toxoid, and acellular pertussis vaccine, adsorbed [facility] 03-02-2009 influenza virus vaccine, unspecified formulation Marina Winchester APRN.[employer] Work Phone: [facility] Payers Date Payer Category Payer Self-pay [id number] 2022 Medicaid [id number] 2022 Unknown [id number] 2011 Medicaid [id number] Unknown [id number] 2.16.8 [id number] Unknown [id number] 2.16.8 [id number] Unknown [id number] 2.16.8 [id number] Unknown [id number] 2.16.8 [id number] Unknown [id number] 2.16.8 [id number] Unknown [id number] 2.16.8 [id number] Unknown [id number] 2.16.8 [id number] Unknown [id number] 2.16.8 [id number] Unknown [id number] 2.16.8 [id number] Social History Date Type Detail Facility Start: 02-03-2022 End: 06-13-2023 Tobacco smoking status TXIS Unknown if ever smoked [facility] Start: 02-04-2019 Rare [facility] Start: 02-04-2019 None [facility] Start: 02-04-2019 With Family [facility] Start: 12-31-2018 Cigarettes [facility] Start: 1985 Sex Assigned At Female W [facility] Start: 01-17-2022 End: 11-07-2024 Tobacco smoking status NHIS Smokes tobacco daily [facility] Start: 06-25-2003 History of tobacco use Cigarette Smoker [facility] Start: 05-11-2020 End: 01-17-2022 Cigarettes smoked current (pack per day) - Reported 0.5 [facility] Start: 03-25-2014 End: 01-17-2022 Tobacco use and exposure Smokeless tobacco non-user [facility] Start: 01-28-2021 End: 04-23-2023 Alcohol intake Current drinker of alcohol (finding) [facility] Start: 05-11-2020 End: 04-23-2023 Tobacco use panel [facility] National Score (1-100), lower number is lower risk Not on file [facility] Start: 03-25-2014 [facility] Start: 1985 Sex Assigned At Not on file [facility] Start: 12-29-2020 End: 01-28-2021 Exposure to SARS-CoV-2 (event) Yes [facility] Start: 11-20-2024 Tobacco smoking status NHIS Current Light tobacco smoker [facility] NEGATED: Highlighted row [facility] Work Phone: Medical Equipment Procedure Code Equipment Code Equipment Origin al Text Equipment Identifier Dates ORIF, fracture, wrist 3.5 mm cortex screws, self-tapping FDA Start: 02-04-2022 ORIF, fracture, wrist ([id number]) Orthopaedic bone screw, non-bioabsorbable, non-sterile ()[id number] FDA Start: 02-04-2022 ORIF, fracture, wrist ([id number]) Orthopaedic fixation plate, non-bioabsorbable, sterile ()[id number] FDA Start: 02-04-2022 ORIF, fracture, wrist 3.5 [...] Goals Date Patient Goal Desired Activity /State Functional Status Date Assessment Result Facility 11-09-2024 Functional status Ambulates [facility] Work Phone: 11-08-2024 Functional status None [facility] Work Phone: Mental Status Date Assessment Result Facility 11-09-2024 Cognitive function Voice/Name [facility] Work Phone: 02-04-2022 Cognitive function Voice/Name [facility] Work Phone: Clinical Notes 01-28-2021 to 11-20-2024 Note Date & Type Note Facility 11-20-2024 History and physi leola note Note Date/Time November 20, 2024 4:40pm [facility] Medical Records Department [address] [place] [address] H&P Exam - Hospitalist 11/20/24 1553 MR#: [id number] Acct: [id number] Name: ALMA DELIA DOW Rep #:[id number] 7 : 1985 39 From: Cody stevens DO PCP: LILI Taylor Status:ADM I N Location: ICU CVICU20 4-1 HPI - General General Date of Admission: 11/20/24 Date of Service: 11/20/24 Chief Complaint: Fevers/chills and shortness of breath HPI Narrative ALMA DELIA DOW, is a 39 F who presented to [facility] on 11/20/2024 with fever/chills and shortness of breath. Patient was recently hospitalized here from 11/06-11/09. Was found to be HIV positive and had a very lowCD4 count of 47 with new diagnosis of AIDS. 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 Had bronchoscopy done with pulmonology but cultures have not resulted from that yet. ID followed and she was discharged home on Proquin and clindamycin for PJP as well as fluconazole for thrush and Biktarvy for HIV. Patient states she was doing fairly well at home until a few days ago when she developed fever/chills and mild worsening shortness of breath. In the ED today she was febrile to 101.0F, had sinus tachycardia in the 130s and was hypotensiveto the 80s over 40s. Chest x-ray showed multifocal bilateral areas of airspace disease, similar to previous. Patient was satting in the low 90s on room air atrest. Case was discussed with Dr. Arellano who noted that patient could have new bacterial pneumonia in setting of immunocompromised condition; could also have some degree of immune reconstitution inflammatory syndrome (IRIS). Patientwas started on 30 cc/kg fluid bolus as well as IV vancomycin and Zosyn. Hospitalist was then contacted for admission. I saw the patient at bedside in the ED, mother was present. Patient was mildly fatigued. But otherwise sittingback comfortably in bed, conversing normally, in no acute distress. She had fairly clear breath sounds bilaterally throughout and no coughing episodes during my encounter with her. She stated that it was primarily fevers over the past few days that have been concerning to her. She has been taking all of her medications as prescribed. She denies any other acute concerns currently. Willbe admitted to the ICU for further management. [facility] Medical History Anemia Migraine headache Gastric reflux Hoarseness Hx of sepsis Smoker Abnormal results of thyroid function studies Malaise and fatigue Unspecified voice and resonance disorder Hair loss Insomnia Home Medications ?Medication ?Instructions ?Recorded ?Last Taken ?Type bictegravir 50 mg-emtricitabine 1 tab PO DAILY #30 tab s 11/08/24 Unknown Rx 200 mg-tenofovir alafenam 25 mg tablet (Biktarvy) cefdinir 300 mg capsule 300 mg PO BID #10 caps 11/08 Unknown Rx clindamycin HCl 150 mg capsule 450 mg (3 x 150 mg) PO TID 19 days 11/08/24 Unknown Rx (Cleocin HCl) #171 caps fluconazole 100 mg tablet 100 mg PO DAILY 7 days #7 ta bs 11/08/24 Unknown Rx primaquine 26.3 mg (15 mg base) 52.6 mg (2 x 26.3 mg ( 15 mg base)) 11/08/24 Unknown Rx tablet PO DAILY 19 days #38 tabs lorazepam 0.5 mg tablet 0.5 mg PO BID PRN anxiety #6 tabs 11/09/24 Unknown Rx ondansetron HCl 8 mg tablet 8 mg PO Q8H PRN nausea and 11/09/24 Unknown Rx vomiting #10 tabs Allergy/AdvReac Type Severity Reaction Status Date / Time sulfamethoxazole (From Allergy Low Verified 11/20/24 13:38 Bactrim) neutrophils trimethoprim (From Bactrim) Allergy Low Verified 11/20/24 13:38 neutrophils Family History Mother Cancer Aunt Thyroid disorder Grandfather CVA (cerebral vascular accident) Parkinsons Surgical History Hx of foot surgery History of oral surgery History of appendectomy History of tonsillectomy Social History household members: significant other current occupational status: employed Smoking Status: Light Smoker (<10/day) alcohol intake: current alcohol intake frequency: a few times a month substance use type: does not use what type of physical activity do you participate in: other ROS Constitutional Constitutional: Reports chills, fatigue and fever(s); Denies weakness Eyes Eyes: Denies change in vision Cardiovascular Cardiovascular: Denies chest pain Respiratory/Chest Respiratory/Chest: Reports cough and shortness of breath with exertion; Denies productive cough, shortness of breath at rest or wheezing Gastrointestinal Gastrointestinal: Denies abdominal pain Musculoskeletal Musculoskeletal: Denies arthralgias or myalgias Neurologic Neurologic: Denies dizziness, focal weakness or headache(s) Vital Signs Vital Signs Vital Signs: 11/20/24 13:35 11/20/24 13:38 11/20/24 13:42 Temperature 101 F H 101 F H Temperature Source Oral Oral Pulse Rate 130 H 130 H Respiratory Rate 16 16 Respiratory Effort Respiratory Depth Respiratory Pattern Blood Pressure 142/78 H 142/78 H Blood Pressure Mean 99 99 Pulse Ox 92 92 Oxygen Delivery Method Room Air Room Air Room Air 11/20/24 13:42 11/20/24 14:06 11/20/24 14:38 Temperature 100.1 F H Temperature Source Axillary Pulse Rate 117 H Respiratory Rate 32 H Respiratory Effort Short of Breath Respiratory Depth Normal Respiratory Pattern Tachypnea Blood Pressure 80/40 L Blood Pressure Mean 53 Pulse Ox 93 93 Oxygen Delivery Method Room Air Room Air Room Air 11/20/24 14:52 11/20/24 15:29 Temperature Temperature Source Pulse Rate 113 H 127 H Respiratory Rate 18 30 H Respiratory Effort Respiratory Depth Respiratory Pattern Normal Blood Pressure 96/54 L Blood Pressure Mean 68 Pulse Ox 93 Oxygen Delivery Method Room Air Weight Weight: 50.831 kg Body Mass Index (BMI) 21.9 Physical Exam Const alert, oriented x3, no apparent distress and average body habitus Constitutional Narrative: Younger middle-aged female, mildly fatigued and flushed appearing but otherwise sitting back comfortably in bed, conversing normally, in no acute distress. General Appearance: cooperative and comfortable HEENT normocephalic, head/scalp atraumatic, hearing grossly normal bilaterally, nasal mucous membranes and turbinates normal and moist oral mucous membranes Eyes PERRL, EOMs intact bilaterally and conjunctivae normal Neck full ROM Chest inspection of chest normal Resp normal respiratory effort and no use of accessory muscles Resp Narrative: Breathing comfortably on room air at rest. Mildly diminished breath sounds in bilateral lung bases but otherwise good air movement throughout with no wheezingor crackles noted. Cardio no murmurs and peripheral pulses 2+ throughout Cardio Narrative: Tachycardic, regular rhythm. GI normal to inspection, nondistended, normoactive bowel sounds, soft to palpation,non-tender and non-distended Back/Spine normal ROM Extremity normal to inspection, full ROM and no pedal edema Skin no rashes or lesions noted Psych mental status grossly normal Results Lab / Micro Data 11/20/24 13:46 11/20/24 13:46 Labs: Laboratory Results - last 24 hr 11/20/24 13:46: WBC 3.3 L, RBC 2.91 L, Hgb 8.6 L, Hct 25.2 L, MCV 86.6, MCH 29.6, MCHC 34.1, RDW Std Deviation 49.8 H, RDW Coeff of Deb 15.8 H, Plt Count 228, MPV 10.5, Immature Gran % (Auto) 0.600, Neut % (Auto) 84.7 H, Lymph % (Auto) 4.9 L, Roosevelt % (Auto) 3.1, Eos % (Auto) 6.4 H, Baso % (Auto) 0.3, AbsoluteNeuts (auto) 2.8, Absolute Lymphs (auto) 0.16 L, Nucleated RBC % 0, DifferentialComment COMMENT, Sodium 132 L, Potassium 2.9 L, Chloride 97 L, Carbon Dioxide 19.8 L, Anion Gap 14, BUN 22 H, Creatinine 0.98, Estim Creat Clear Calc 55.36, Est GFR (MDRD) Non-Af 75, BUN/Creatinine Ratio 22.6 H, Glucose 134 H, Calcium 9.3 11/20/24 14:15: Lactate Dehydrogenase 648 H Imaging Radiology Impression Chest X-Ray 11/20/24 14:40 IMPRESSION: Multifocal bilateral areas of patchy airspace disease as described. Infectious process should be ruled out. Radiographic follow-up recommended. Reading Location: [facility] Assessment & Plan Assessment/Plan (1) Sepsis: (2) Bilateral interstitial pneumonia: PLAN: Plan Patient is a 39-year-old female who presented [facility] ED on 11/20/2024 with fever/chills and shortness of breath. 1. Sepsis secondary to community-acquired bacterial pneumonia in setting of HIV/AIDS with recent PJP infection versus immune reconstitution inflammatory syndrome ? Admit under inpatient status to ICU. Brush Stainer and ID consulted. Recently hospitalized from 11/06-11/09 for bilateral interstitial pneumonia. Found to be HIVpositive and had CD4 count of 47 consistent with AIDS. Pulmonology followed andbronchoscopy was done but fluid results for PJP are still pending. ID followed and patient was started on treatment for presumed PJP with clindamycin and primaquine. Was also discharged home on Biktarvy. Presented on 11/20 with fever/chills and mild worsening shortness of breath. Chest x-ray showed bilateral interstitial infiltrates, similar to previous. Patient with saturations in the low 90s on room air at rest but only mild nonproductive coughnoted. Met sepsis criteria on admit with SBP less than 90, fever, WBC count lowat 3.3, sinus tachycardia and presumed pulmonary source of infection. Per ID, will treat with IV vancomycin and Zosyn for now. Will give 30 cc/kg of IV fluids and monitor blood pressure closely. Sputum culture, urine antigens and respiratory PCR panel sent. Continue clindamycin, primaquine and Biktarvy per ID. Presentation could also be due to IRIS in setting of recently initiated Biktarvy, but need to treat for infection at this time as well. Appreciate further ID and pulmonary recommendations. 2. Chronic normocytic anemia ? Hemoglobin 8.6 on admission, stable at baseline during prior admission. Iron studies during that admission showed elevated ferritin of 770 consistent with anemia of chronic disease. No further workup needed while inpatient. 3. Hypokalemia ? Potassium 2.9 on admit. Mag and Phos ordered. Follow-up a.m. potassium leveland replete as needed. 4. Mild hyponatremia ? Sodium 132 on admit, stable from previous. Given IV fluids on admit as noted above. Follow-up a.m. sodium level. DVT prophylaxis: Lovenox CODE STATUS: Full code, verified Expected disposition: Home, TBD Total clinical time spent by myself addressing the patient's medical issues, reviewing all the data, and collaborating with patient's care team: 75 minutes. Charges/Coding Visit Charges Inpatient E&M: 74149 Init Hosp L3 11/20/24 1640 <Electronically signed by Cody Martínez DO> Cosigner Signature (if applicable): CC: DORINDA-Trevor Hudson; Dr. Cody Martínez DO~ Signed [facility] Work Phone: [phone]) 844-280406-18-2025 History and physical note [facility] Medical Records Department [address] [place] [address] H&P Exam - Hospitalist 11/20/24 1553 MR#: [id number] Acct: [id number] Name: ALMA DELIA DOW Rep #:[id number] : 1985 39 From: Cody stevens DO PCP: LILI Taylor Status:ADM I N Location: ICU CVICU20 4-1 HPI - General General Date of Admission: 11/20/24 Date of Service: 11/20/24 Chief Complaint: Fevers/chills and shortness of breath HPI Narrative ALMA DELIA DOW, is a 39 F who presented to [facility] on 11/20/2024 with fever/chills and shortness of breath. Patient was recently hospitalized here from 11/06-11/09. Was found to be HIVpositive and had a very lowCD4 count of 47 with new diagnosis of AIDS. 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 Had bronchoscopy done with pulmonology but cultures have not resulted from that yet. ID followed and she was discharged home on Proquin and clindamycin for PJP as well as fluconazole for thrush and Biktarvy for HIV. Patient states she was doing fairly well at home until a few days ago when she developed fever/chills and mild worsening shortness of breath. In the ED today she was febrile to 101.0F, had sinus tachycardia in the 130s and was hypotensiveto the 80s over 40s. Chest x-ray showed multifocal bilateral areas of airspace disease, similar to previous. Patient was satting in the low 90s on room air atrest. Case was discussed with Dr. Arellano who noted that patient could have new bacterial pneumonia in setting of immunocompromised condition; could also have some degree of immune reconstitution inflammatory syndrome (IRIS). Patientwas started on 30 cc/kg fluid bolus as well as IV vancomycin and Zosyn. Hospitalist was then contacted for admission. I saw the patient at bedside in the ED, mother was present. Patient was mildly fatigued. But otherwise sittingback comfortably in bed, conversing normally, in no acute distress. She had fairly clear breath sounds bilaterally throughout and no coughing episodes during my encounter with her. She stated that it was primarily fevers over the past few days that have been concerning to her. She has been taking all of her medications as prescribed. She denies any other acute concerns currently. Willbe admitted to the ICU for further management. [facility] Medical History Anemia Migraine headache Gastric reflux Hoarseness Hx of sepsis Smoker Abnormal results of thyroid function studies Malaise and fatigue Unspecified voice and resonance disorder Hair loss Insomnia Home Medications ?Medication ?Instructions ?Recorded ?Last Taken ?Type bictegravir 50 mg-emtricitabine 1 tab PO DAILY #30 tab s 11/08/24 Unknown Rx 200 mg-tenofovir alafenam 25 mg tablet (Biktarvy) cefdinir 300 mg capsule 300 mg PO BID #10 caps 11/08 Unknown Rx clindamycin HCl 150 mg capsule 450 mg (3 x 150 mg) PO TID 19 days 11/08/24 Unknown Rx (Cleocin HCl) #171 caps fluconazole 100 mg tablet 100 mg PO DAILY 7 days #7 ta bs 11/08/24 Unknown Rx primaquine 26.3 mg (15 mg base) 52.6 mg (2 x 26.3 mg ( 15 mg base)) 11/08/24 Unknown Rx tablet PO DAILY 19 days #38 tabs lorazepam 0.5 mg tablet 0.5 mg PO BID PRN anxiety #6 tabs 11/09/24 Unknown Rx ondansetron HCl 8 mg tablet 8 mg PO Q8H PRN nausea and 11/09/24 Unknown Rx vomiting #10 tabs Allergy/AdvReac Type Severity Reaction Status Date / Time sulfamethoxazole (From Allergy Low Verified 11/20/24 13:38 Bactrim) neutrophils trimethoprim (From Bactrim) Allergy Low Verified 11/20/24 13:38 neutrophils Family History Mother Cancer Aunt Thyroid disorder Grandfather CVA (cerebral vascular accident) Parkinsons Surgical History Hx of foot surgery History of oral surgery History of appendectomy History of tonsillectomy Social History household members: significant other current occupational status: employed Smoking Status: Light Smoker (<10/day) alcohol intake: current alcohol intake frequency: a few times a month substance use type: does not use what type of physical activity do you participate in: other ROS Constitutional Constitutional: Reports chills, fatigue and fever(s); Denies weakness Eyes Eyes: Denies change in vision Cardiovascular Cardiovascular: Denies chest pain Respiratory/Chest Respiratory/Chest: Reports cough and shortness of breath with exertion; Denies productive cough, shortness of breath at rest or wheezing Gastrointestinal Gastrointestinal: Denies abdominal pain Musculoskeletal Musculoskeletal: Denies arthralgias or myalgias Neurologic Neurologic: Denies dizziness, focal weakness or headache(s) Vital Signs Vital Signs Vital Signs: 11/20/24 13:35 11/20/24 13:38 11/20/24 13:42 Temperature 101 F H 101 F H Temperature Source Oral Oral Pulse Rate 130 H 130 H Respiratory Rate 16 16 Respiratory Effort Respiratory Depth Respiratory Pattern Blood Pressure 142/78 H 142/78 H Blood Pressure Mean 99 99 Pulse Ox 92 92 Oxygen Delivery Method Room Air Room Air Room Air 11/20/24 13:42 11/20/24 14:06 11/20/24 14:38 Temperature 100.1 F H Temperature Source Axillary Pulse Rate 117 H Respiratory Rate 32 H Respiratory Effort Short of Breath Respiratory Depth Normal Respiratory Pattern Tachypnea Blood Pressure 80/40 L Blood Pressure Mean 53 Pulse Ox 93 93 Oxygen Delivery Method Room Air Room Air Room Air 11/20/24 14:52 11/20/24 15:29 Temperature Temperature Source Pulse Rate 113 H 127 H Respiratory Rate 18 30 H Respiratory Effort Respiratory Depth Respiratory Pattern Normal Blood Pressure 96/54 L Blood Pressure Mean 68 Pulse Ox 93 Oxygen Delivery Method Room Air Weight Weight: 50.831 kg Body Mass Index (BMI) 21.9 Physical Exam Const alert, oriented x3, no apparent distress and average body habitus Constitutional Narrative: Younger middle-aged female, mildly fatigued and flushed appearing but otherwise sitting back comfortably in bed, conversing normally, in no acute distress. General Appearance: cooperative and comfortable HEENT normocephalic, head/scalp atraumatic, hearing grossly normal bilaterally, nasal mucous membranes and turbinates normal and moist oral mucous membranes Eyes PERRL, EOMs intact bilaterally and conjunctivae normal Neck full ROM Chest inspection of chest normal Resp normal respiratory effort and no use of accessory muscles Resp Narrative: Breathing comfortably on room air at rest. Mildly diminished breath sounds in bilateral lung bases but otherwise good air movement throughout with no wheezingor crackles noted. Cardio no murmurs and peripheral pulses 2+ throughout Cardio Narrative: Tachycardic, regular rhythm. GI normal to inspection, nondistended, normoactive bowel sounds, soft to palpation,non-tender and non-distended Back/Spine normal ROM Extremity normal to inspection, full ROM and no pedal edema Skin no rashes or lesions noted Psych mental status grossly normal Results Lab / Micro Data 11/20/24 13:46 11/20/24 13:46 Labs: Laboratory Results - last 24 hr 11/20/24 13:46: WBC 3.3 L, RBC 2.91 L, Hgb 8.6 L, Hct 25.2 L, MCV 86.6, MCH 29.6, MCHC 34.1, RDW Std Deviation 49.8 H, RDW Coeff of Deb 15.8 H, Plt Count 228, MPV 10.5, Immature Gran % (Auto) 0.600, Neut % (Auto) 84.7 H, Lymph % (Auto) 4.9 L, Roosevelt % (Auto) 3.1, Eos % (Auto) 6.4 H, Baso % (Auto) 0.3, AbsoluteNeuts (auto) 2.8, Absolute Lymphs (auto) 0.16 L, Nucleated RBC % 0, DifferentialComment COMMENT, Sodium 132 L, Potassium 2.9 L, Chloride 97 L, Carbon Dioxide 19.8 L, Anion Gap 14, BUN 22 H, Creatinine 0.98, Estim Creat Clear Calc 55.36, Est GFR (MDRD) Non-Af 75, BUN/Creatinine Ratio 22.6 H, Glucose 134 H, Calcium 9.3 11/20/24 14:15: Lactate Dehydrogenase 648 H Imaging Radiology Impression Chest X-Ray 11/20/24 14:40 IMPRESSION: Multifocal bilateral areas of patchy airspace disease as described. Infectious process should be ruled out. Radiographic follow-up recommended. Reading Location: [facility]IR[facility] Assessment & Plan Assessment/Plan (1) Sepsis: (2) Bilateral interstitial pneumonia: PLAN: Plan Patient is a 39-year-old female who presented [facility] ED on 11/20/2024 with fever/chills and shortness of breath. 1. Sepsis secondary to community-acquired bacterial pneumonia in setting of HIV/AIDS with recent PJP infection versus immune reconstitution inflammatory syndrome ? Admit under inpatient status to ICU. Brush Stainer and ID consulted. Recently hospitalized from 11/06-11/09 for bilateral interstitial pneumonia. Found to be HIVpositive and had CD4 count of 47 consistent with AIDS. Pulmonology followed andbronchoscopy was done but fluid results for PJP are still pending. ID followed and patient was started on treatment for presumed PJP with clindamycin and primaquine. Was also discharged home on Biktarvy. Presented on 11/20 with fever/chills and mild worsening shortness of breath. Chest x-ray showed bilateral interstitial infiltrates, similar to previous. Patientwith saturations in the low 90s on room air at rest but only mild nonproductive coughnoted. Met sepsis criteria on admit with SBP less than 90, fever, WBC count lowat 3.3, sinus tachycardia and presumed pulmonary source of infection. Per ID, will treat with IV vancomycin and Zosyn for now. Will give 30 cc/kg of IV fluids and monitor blood pressure closely. Sputum culture, urine antigens and respiratory PCR panel sent. Continue clindamycin, primaquine and Biktarvy per ID. Presentation could alsobe due to IRIS in setting of recently initiated Biktarvy, but need to treat for infection at this time as well. Appreciate further ID and pulmonary recommendations. 2. Chronic normocytic anemia ? Hemoglobin 8.6 on admission, stable at baseline during prior admission. Iron studies during that admission showed elevated ferritin of 770 consistent with anemia of chronic disease. No further workup needed while inpatient. 3. Hypokalemia ? Potassium 2.9 on admit. Mag and Phos ordered. Follow-up a.m. potassium leveland replete as needed. 4. Mild hyponatremia ? Sodium 132 on admit, stable from previous. Given IV fluids on admit as noted above. Follow-up a.m. sodium level. DVT prophylaxis: Lovenox CODE STATUS: Full code, verified Expected disposition: Home, TBD Total clinical time spent by myself addressing the patient's medical issues, reviewing all the data, and collaborating with patient's care team: 75 minutes. Charges/Coding Visit Charges Inpatient E&M: 02875 Init Hosp L3 11/20/24 1640 Cosigner Signature (if applicable): CC: LABORATORY ASSOCIATE-C Tia Hudson; Dr. Cody Martínez, DO~ Signed [facility]06-18-2025 Consult note [facility] Medical Records Department [address] [place] [address] Consultation - Infectious Dx 11/20/24 1629 MR#: [id number] Acct: [id number] Name: POLLO DOWHENRY Wyman Rep #:[id number] : 1985 39 From: Chidi vivas MD PCP: LILI Taylor Status:ADM I N Location: ICU CVICU20 4-1 Assessment & Plan Assessment/Plan (1) Hypoxia: (2) Bilateral interstitial pneumonia: (3) HIV (human immunodeficiency virus infection): PLAN: Recent dx of HIV/AIDS. No h/o ivdu. Treating empirically for PJP with clinda and primaquine. No new focal symptoms. Suspect IRIS as the cause but isat risk for other infections given immunosuppressed state. CD4 47, viral load 763k. Would check sputum cx, full resp pcr panel, and MRSA pcr. With PJP, would be at risk for pneumothorax but no change seen on cxr. Cont primaquine/clinda and biktarvy. Empiric vanc/zosyn. No sign of thrush on exam. If this is IRIS, treatment would be a short course of steroids. Will follow, thank you, d/w Dr. Frias and Tanya. HPI Consult Data Date of Consult: 11/20/24 HPI Narrative Reason for Consultation: fever HPI Narrative: ALMA DELIA DOW, is a 39 F with recent admit with new dx HIV/AIDS, treated for thrush and presumed PJP. Discharged on clinda/primaquine, fluconazole, cefdinir, and started biktarvy. Had been feeling better until one day of fever,mild increase in dry cough. No vision changes, no pain or difficulty swallowing. No sick contacts. No chest pain, abd pain, n/v/d. No new rash. Did scrape her knee recently, healing. Reports compliance with meds. Came to ED, had hypotension, plan is admit to icu. Full ROS performed and neg except as noted above. [facility] Medical History Anemia Migraine headache Gastric reflux Hoarseness Hx of sepsis Smoker Abnormal results of thyroid function studies Malaise and fatigue Unspecified voice and resonance disorder Hair loss Insomnia Home Medications ?Medication ?Instructions ?Recorded ?Last Taken ?Type bictegravir 50 mg-emtricitabine 1 tab PO DAILY #30 tab s 11/08/24 Unknown Rx 200 mg-tenofovir alafenam 25 mg tablet (Biktarvy) cefdinir 300 mg capsule 300 mg PO BID #10 caps 11/08 Unknown Rx clindamycin HCl 150 mg capsule 450 mg (3 x 150 mg) PO TID 19 days 11/08/24 Unknown Rx (Cleocin HCl) #171 caps fluconazole 100 mg tablet 100 mg PO DAILY 7 days #7 ta bs 11/08/24 Unknown Rx primaquine 26.3 mg (15 mg base) 52.6 mg (2 x 26.3 mg ( 15 mg base)) 11/08/24 Unknown Rx tablet PO DAILY 19 days #38 tabs lorazepam 0.5 mg tablet 0.5 mg PO BID PRN anxiety #6 tabs 11/09/24 Unknown Rx ondansetron HCl 8 mg tablet 8 mg PO Q8H PRN nausea and 11/09/24 Unknown Rx vomiting #10 tabs Allergy/AdvReac Type Severity Reaction Status Date / Time sulfamethoxazole (From Allergy Low Verified 11/20/24 13:38 Bactrim) neutrophils trimethoprim (From Bactrim) Allergy Low Verified 11/20/24 13:38 neutrophils Family History Mother Cancer Aunt Thyroid disorder Grandfather CVA (cerebral vascular accident) Parkinsons Surgical History Hx of foot surgery History of oral surgery History of appendectomy History of tonsillectomy Social History household members: significant other current occupational status: employed Smoking Status: Light Smoker (<10/day) alcohol intake: current alcohol intake frequency: a [...] auscultation bilaterally Auscultation: diminished lung sounds Cardio Rate: tachycardic GI soft to palpation, non-tender and non-distended Extremity General Extremity: Negative for edema Skin no rashes or lesions noted Neuro CN's II-XII intact bilaterally Lab / Micro Data Attestation: I reviewed the patient's lab results. 11/20/24 13:46 11/20/24 13:46 Labs: Laboratory Results - last 24 hr 11/20/24 13:46: WBC 3.3 L, RBC 2.91 L, Hgb 8.6 L, Hct 25.2 L, MCV 86.6, MCH 29.6, MCHC 34.1, RDW Std Deviation 49.8 H, RDW Coeff of Deb 15.8 H, Plt Count 228, MPV 10.5, Immature Gran % (Auto) 0.600, Neut % (Auto) 84.7 H, Lymph % (Auto) 4.9 L, Roosevelt % (Auto) 3.1, Eos % (Auto) 6.4 H, Baso % (Auto) 0.3, AbsoluteNeuts (auto) 2.8, Absolute Lymphs (auto) 0.16 L, Nucleated RBC % 0, DifferentialComment COMMENT, Sodium 132 L, Potassium 2.9 L, Chloride 97 L, Carbon Dioxide 19.8 L, Anion Gap 14, BUN 22 H, Creatinine 0.98, Estim Creat Clear Calc 55.36, Est GFR (MDRD) Non-Af 75, BUN/Creatinine Ratio 22.6 H, Glucose 134 H, Calcium 9.3 11/20/24 14:15: Lactate Dehydrogenase 648 H Imaging Radiology Impression Chest X-Ray 11/20/24 14:40 IMPRESSION: Multifocal bilateral areas of patchy airspace disease as described. Infectious process should be ruled out. Radiographic follow-up recommended. Reading Location: [facility] 11/20/24 1638 Cosigner Signature (if applicable): CC: LILI Hudson~ Signed [facility]06-18-2025 Discharge summary [facility] Medical Records Department [address] [place] [id number] Emergency Department Summary 11/20/24 MR#: [id number] Acct: [id number] Name: ALMA DELIA DOW Rep #:[id number] : 1985 39 From: Parish Frias MD PCP: LILI Taylor Status:REG E R Location: ED HPI History of Present Illness Chief Complaint: Shortness of Breath Informant: patient Onset/Context/Timing Onset: Days Context: Sudden Onset Timing: Intermittent Quality: Fever, chills increased shortness of breath Location: Generalized and respiratory Current Severity: Mild Maximum Severity: Moderate Worsened by: Walking Relieved by: Better with rest Associated Symptoms Associated Symptoms: HPI narrative Narrative Narrative: Patient is a 39-year-old female. She was admitted earlier this month for sepsisdue to to bilateral incision ammonia. Patient was found to have HIV. Based on recent blood work that has returned since her admission patient has AIDS. She was unaware that she had AIDS. She is presently on antibiotics, antiviral for HIV and primaquine for presumed pneumocystis opportunistic infection. Patient presents because of fever, chills, increased shortness of breath and cough. She has thrush.She was discharged on a 7-day course of flucanazole. Recent Illness/Hospitalization: Yes PFSH PFS Medical History Anemia Migraine headache Gastric reflux Hoarseness Hx of sepsis Smoker Abnormal results of thyroid function studies Malaise and fatigue Unspecified voice and resonance disorder Hair loss Insomnia Home Medications ?Medication ?Instructions ?Recorded ?Last Taken ?Type bictegravir 50 mg-emtricitabine 1 tab PO DAILY #30 tab s 11/08/24 Unknown Rx 200 mg-tenofovir alafenam 25 mg tablet (Biktarvy) cefdinir 300 mg capsule 300 mg PO BID #10 caps 11/08 Unknown Rx clindamycin HCl 150 mg capsule 450 mg (3 x 150 mg) PO TID 19 days 11/08/24 Unknown Rx (Cleocin HCl) #171 caps fluconazole 100 mg tablet 100 mg PO DAILY 7 days #7 ta bs 11/08/24 Unknown Rx primaquine 26.3 mg (15 mg base) 52.6 mg (2 x 26.3 mg ( 15 mg base)) 11/08/24 Unknown Rx tablet PO DAILY 19 days #38 tabs lorazepam 0.5 mg tablet 0.5 mg PO BID PRN anxiety #6 tabs 11/09/24 Unknown Rx ondansetron HCl 8 mg tablet 8 mg PO Q8H PRN nausea and 11/09/24 Unknown Rx vomiting #10 tabs Allergy/AdvReac Type Severity Reaction Status Date / Time sulfamethoxazole (From Allergy Low Verified 11/20/24 13:38 Bactrim) neutrophils trimethoprim (From Bactrim) Allergy Low Verified 11/20/24 13:38 neutrophils Family History Mother Cancer Aunt Thyroid disorder Grandfather CVA (cerebral vascular accident) Parkinsons Surgical History Hx of foot surgery History of oral surgery History of appendectomy History of tonsillectomy Social History household members: significant other current occupational status: employed Smoking Status: Light Smoker (<10/day) alcohol intake: current alcohol intake frequency: a few times a month substance use type: does not use what type of physical activity do you participate in: other ROS ROS ED Constitutional Constitutional ED: Reports chills, fever(s), sweats and weight loss; Denies subjective Eyes Eyes: Denies blurry vision, change in vision or diplopia ENT ENT ED: Denies ear pain, rhinorrhea or sore throat Cardiovascular Cardiovascular: Reports palpitations and racing heartbeat; Denies chest pain, orthopnea or paroxysmal nocturnal dyspnea Respiratory/Chest Respiratory/Chest: Reports cough, dyspnea and dyspnea on exertion; Denies orthopnea or paroxysmal nocturnal dyspnea Gastrointestinal Gastrointestinal: Reports nausea; Denies abdominal pain or vomiting Genitourinary Genitourinary ED: Denies dysuria, hematuria or urinary frequency Musculoskeletal Musculoskeletal: Denies back pain or neck pain Integumentary Denies rash Neurologic Neurologic: Reports weakness; Denies headache(s) or paresthesias Hematologic/Lymphatic Hematologic/Lymphatic: Reports systems reviewed and no addt'l complaints, exceptas documented EXAM Physical Exam Const Vital Signs: 11/20/24 13:35 11/20/24 13:38 11/20/24 13:42 Temperature 101 F H 101 F H Temperature Source Oral Oral Pulse Rate 130 H 130 H Respiratory Rate 16 16 Respiratory Effort Respiratory Depth Respiratory Pattern Blood Pressure 142/78 H 142/78 H Blood Pressure Mean 99 99 Pulse Ox 92 92 Oxygen Delivery Method Room Air Room Air Room Air 11/20/24 13:42 11/20/24 14:06 11/20/24 14:38 Temperature 100.1 F H Temperature Source Axillary Pulse Rate 117 H Respiratory Rate 32 H Respiratory Effort Short of Breath Respiratory Depth Normal Respiratory Pattern Tachypnea Blood Pressure 80/40 L Blood Pressure Mean 53 Pulse Ox 93 93 Oxygen Delivery Method Room Air Room Air Room Air 11/20/24 14:52 11/20/24 15:29 Temperature Temperature Source Pulse Rate 113 H 127 H Respiratory Rate 18 30 H Respiratory Effort Respiratory Depth Respiratory Pattern Normal Blood Pressure 96/54 L Blood Pressure Mean 68 Pulse Ox 93 Oxygen Delivery Method Room Air Positive well nourished and well developed General Appearance ED: well developed; Negative for cyanotic, diaphoretic, NAD or pallor HEENT Reports dry mucous membranes Mouth ED: Yes dry mucous membranes Mouth: dry mucous membranes Eyes PERRL and EOMs intact bilaterally General Eye ED: Yes pale conjunctiva; Negative for scleral icterus Neck no lymphadenopathy, supple and no JVD Chest Wall inspection of chest normal and palpation of chest normal Resp normal respiratory effort and No clear to auscultation bilaterally Resp Narrative: Bilateral expiratory wheezing heard throughout. Bilateral rales on inspiration heard throughout. Cardio regular rhythm, S1 normal heart sound, S2 normal heart sound and no murmurs Rate: tachycardic GI normal to inspection, nondistended, normoactive bowel sounds, non-tender, non- distended and no masses; Negative for hepatosplenomegaly Back/Spine no CVA tenderness Extremity normal to inspection General Extremety ED: Negative for edema or tenderness General Extremity: Negative for edema Neuro oriented x3 and CN's II-XII intact bilaterally Sensorium / Orientation: alert Psych Mood & Affect: depressed Skin no rashes or lesions noted, no wounds and skin turgor normal General Skin Exam: Negative for jaundice or pallor Sepsis Attestation Sepsis Alert: Yes Sepsis Attestation: Agree w/Sepsis Date exam was performed: 11/20/24 Time exam was performed: 15:29 Possible Source of Sepsis: Pulmonary Sepsis Organ Dysfunction Criteria Present: SBP < 90 mmHg or MAP < 65 mmHg Fluid Resuscitation Fluid resuscitation indicated?: Yes Fluid Resuscitation ordered: 30 ml/kg fluid bolus ordered Amount of fluid ordered: 1,550 Sepsis Note Date exam was performed: 11/20/24 Time exam was performed: 15:57 Sepsis Attestation: Sepsis re-evaluation was performed Response to fluids: Fluid responsive hypotension (Blood pressure is 94/54 with amean arterial pressure 75) MDM MDM MDM Narrative Medical decision making narrative: Case was discussed with infectious disease. Antibiotics were not initially started since she is present on antibiotics and on primaquine for presumed pneumocystis infection. After discussion with patient was startedon vancomycin and Zosyn. Since patient was hypotensive she received a 30 cc/kg bolus. The hospitalist was paged for admission. Patient does meet criteria forsepsis. Lab Data Attestation: I reviewed the patient's lab results. Lab results narrative: Patient is neutropenic. She is also anemic. Based on prior labs she has iron deficiency anemia. Electrolyte panel is remarkable for hyponatremia, hypokalemia, CO2 is 19.8 with an anion gap of 14. BUNto creatinine ratio is elevated. Glucose is slightly elevated 134. LDH is greater than 2 times roe lwhich raises concern for pneumocystis jiroveci infection. Labs: Laboratory Results - last 24 hr 11/20/24 11/20/24 13:46 14:15 WBC 3.3 L RBC 2.91 L Hgb 8.6 L Hct 25.2 L MCV 86.6 MCH 29.6 MCHC 34.1 RDW Std Deviation 49.8 H RDW Coeff of Deb 15.8 H Plt Count 228 MPV 10.5 Immature Gran % (Auto) 0.600 Neut % (Auto) 84.7 H Lymph % (Auto) 4.9 L Roosevelt % (Auto) 3.1 Eos % (Auto) 6.4 H Baso % (Auto) 0.3 Absolute Neuts (auto) 2.8 Absolute Lymphs (auto) 0.16 L Nucleated RBC % 0 Differential Comment COMMENT Sodium 132 L Potassium 2.9 L Chloride 97 L Carbon Dioxide 19.8 L Anion Gap 14 BUN 22 H Creatinine 0.98 Estim Creat Clear Calc 55.36 Est GFR (MDRD) Non-Af 75 BUN/Creatinine Ratio 22.6 H Glucose 134 H Calcium 9.3 Lactate Dehydrogenase 648 H Radiography Chest X-Ray - ED: 2 View and Read by ED Physician (Independent review interpreted by me as multifocal bilateral interstitial patchy infiltrates involving all lung anne. This is a significant changefrom her chest x-ray dated November 06. CT revealed bilateral interstitial patchy infiltrates that was pe rformed on same date.) Diagnostic Testing: Clinical Impression(s) from Imaging Studies Chest X-Ray 11/20/24 14:40 IMPRESSION: Multifocal bilateral areas of patchy airspace disease as described. Infectious process should be ruled out. Radiographic follow-up recommended. Reading Location: [facility] Management Discussion w/another healthcare provider: Crepe Machine Operator (Spoke with Dr. Arellano who has seen patienton prior admission. He recommended vancomycin and Zosyn. These were ordered.) Treatment and Re-Evaluation :: I was informed by nurse that her blood pressure has dropped to 80/40. She will receive a 30 cc/kg bolus. Blood cultures lactate was ordered. Since she is on multiple antiantibiotics, and concern for opportunistic infection we will contact infectious disease to discuss treatment options and what else should be added to her present regimen. Critical Care Time Critical Care Time: Yes Critical care time (excluding procedures): 30-74 minutes (34), Including time spent: (History, physical, documentation, independent rotation laboratory results and treatment for possible opportunistic infection.), Discussing w/Patient &/or Family/Operations Administrator (Discussion with patient and family member regarding HIV, AIDS opportunistic infection sepsis), Discussing w/Consultants (Hospitalist andinfectious disease) and Arranging Admission or Transfer Discharge Plan Triage Chief Complaint: Shortness of Breath ED Provider: Parish Frias Dx/Rx/DC Orders Clinical Impression: Bilateral interstitial pneumonia, Severe sepsis, Neutropenia associated with infection, Hyponatremia, Hypochloremia, Acute prerenal azotemia, Nondiabetic hyperglycemia, Iron deficiency anemia, Hypoxia Prescriptions: No Action fluconazole 100 mg Tablet 100 mg PO DAILY 7 Days Qty: 7 0RF primaquine 26.3 mg (15 mg base) Tablet 52.6 mg PO DAILY 19 Days Qty: 38 0RF clindamycin HCl [Cleocin HCl] 150 mg capsule 450 mg PO TID 19 Days Qty: 171 0RF Biktarvy 50-200-25 mg tablet 1 tab PO DAILY Qty: 30 2RF cefdinir 300 mg capsule 300 mg PO BID Qty: 10 0RF lorazepam 0.5 mg tablet 0.5 mg PO BID PRN (Reason: anxiety) Qty: 6 0RF ondansetron HCl 8 mg tablet 8 mg PO Q8H PRN (Reason: nausea and vomiting) Qty: 10 0RF Primary Care Provider: Tia Hudson Referrals: Tia Hudson NP-C [Primary Care Provider] - Print Language: Colombian Disposition Disposition: Acute Care Hospital [facility] What to do if you have Problems For any increased pain, shortness of breath, bleeding, nausea or vomiting, chestpain, or any unexpected problems, contact your Primary Care Provider. Call [facility] ([phone]) or report tothe closest Emergency Room. Call 911 if necessary. 11/20/24 1604 Cosigner Signature (if applicable): CC: LILI Hudson ~ Signed [facility]06-18-2025 Radiology Diagnostic study note [facility] Imaging Services [address] [place] [address] Chest PA and Lateral MR#: [id number] Acct: [id number] Name: POLLO DOWHENRY Wyman Rep #: [id number] : 1985 F 39 From: Roderick Chavira MD PCP: LILI Taylor Status: REG E R Study:Chest PA and Lateral Date of Exam: 11/20/24 Exam# [id number] Ordering Dr: Kip Frias MD PROCEDURE: CHEST PA AND LATERAL 11/20/2024 REASON FOR EXAM: FEVER, COUGH, HYPOXIA TECHNIQUE: CHEST PA AND LATERAL COMPARISON: Prior study dated November 06, 2024. FINDINGS: Hardware: EKG electrodes are seen. Heart: The heart size is normal. Mediastinum: The mediastinal contour is unremarkable. Lungs: Multifocal areas of ground-glass appearance throughout both lungs. Infectious process shouldbe ruled out. Follow-up recommended. Bones: The bones are unremarkable. RAD/Chest PA and Lateral IMPRESSION: Multifocal bilateral areas of patchy airspace disease as described. Infectious process should be ruled out. Radiographic follow-up recommended. Reading Location: [facility] CC: LILI Hudson; Dr. Parish Frias MD ~ Wallcovering Hanger: Signed [facility]06-18-2025 Discharge summary Author Parish Frias [facility] Note Date/Time November 20, 2024 4:04 pm [facility] Medical Records Department [address] [place] [address] Emergency Department Summary 11/20/24 MR#: [id number] Acct: [id number] Name: PALOMAALMA DELIA Wyman Rep #:[id number] : 1985 39 From: Parish Frias MD PCP: Tia Hudson NP-C Status:REG E R Location: ED HPI History of Present Illness Chief Complaint: Shortness of Breath Informant: patient Onset/Context/Timing Onset: Days Context: Sudden Onset Timing: Intermittent Quality: Fever, chills increased shortness of breath Location: Generalized and respiratory Current Severity: Mild Maximum Severity: Moderate Worsened by: Walking Relieved by: Better with rest Associated Symptoms Associated Symptoms: HPI narrative Narrative Narrative: Patient is a 39-year-old female. She was admitted earlier this month for sepsisdue to to bilateral incision ammonia. Patient was found to have HIV. Based on recent blood work that has returned since her admission patient has AIDS. She was unaware that she had AIDS. She is presently on antibiotics, antiviral for HIV and primaquine for presumed pneumocystis opportunistic infection. Patient presents because of fever, chills, increased shortness of breath and cough. She has thrush. She was discharged on a 7-day course of flucanazole. Recent Illness/Hospitalization: Yes PFSH PFSH Medical History Anemia Migraine headache Gastric reflux Hoarseness Hx of sepsis Smoker Abnormal results of thyroid function studies Malaise and fatigue Unspecified voice and resonance disorder Hair loss Insomnia Home Medications ?Medication ?Instructions ?Recorded ?Last Taken ?Type bictegravir 50 mg-emtricitabine 1 tab PO DAILY #30 tab s 11/08/24 Unknown Rx 200 mg-tenofovir alafenam 25 mg tablet (Biktarvy) cefdinir 300 mg capsule 300 mg PO BID #10 caps 11/08 Unknown Rx clindamycin HCl 150 mg capsule 450 mg (3 x 150 mg) PO TID 19 days 11/08/24 Unknown Rx (Cleocin HCl) #171 caps fluconazole 100 mg tablet 100 mg PO DAILY 7 days #7 ta bs 11/08/24 Unknown Rx primaquine 26.3 mg (15 mg base) 52.6 mg (2 x 26.3 mg ( 15 mg base)) 11/08/24 Unknown Rx tablet PO DAILY 19 days #38 tabs lorazepam 0.5 mg tablet 0.5 mg PO BID PRN anxiety #6 tabs 11/09/24 Unknown Rx ondansetron HCl 8 mg tablet 8 mg PO Q8H PRN nausea and 11/09/24 Unknown Rx vomiting #10 tabs Allergy/AdvReac Type Severity Reaction Status Date / Time sulfamethoxazole (From Allergy Low Verified 11/20/24 13:38 Bactrim) neutrophils trimethoprim (From Bactrim) Allergy Low Verified 11/20/24 13:38 neutrophils Family History Mother Cancer Aunt Thyroid disorder Grandfather CVA (cerebral vascular accident) Parkinsons Surgical History Hx of foot surgery History of oral surgery History of appendectomy History of tonsillectomy Social History household members: significant other current occupational status: employed Smoking Status: Light Smoker (<10/day) alcohol intake: current alcohol intake frequency: a few times a month substance use type: does not use what type of physical activity do you participate in: other ROS ROS ED Constitutional Constitutional ED: Reports chills, fever(s), sweats and weight loss; Denies subjective Eyes Eyes: Denies blurry vision, change in vision or diplopia ENT ENT ED: Denies ear pain, rhinorrhea or sore throat Cardiovascular Cardiovascular: Reports palpitations and racing heartbeat; Denies chest pain, orthopnea or paroxysmal nocturnal dyspnea Respiratory/Chest Respiratory/Chest: Reports cough, dyspnea and dyspnea on exertion; Denies orthopnea or paroxysmal nocturnal dyspnea Gastrointestinal Gastrointestinal: Reports nausea; Denies abdominal pain or vomiting Genitourinary Genitourinary ED: Denies dysuria, hematuria or urinary frequency Musculoskeletal Musculoskeletal: Denies back pain or neck pain Integumentary Denies rash Neurologic Neurologic: Reports weakness; Denies headache(s) or paresthesias Hematologic/Lymphatic Hematologic/Lymphatic: Reports systems reviewed and no addt'l complaints, exceptas documented EXAM Physical Exam Const Vital Signs: 11/20/24 13:35 11/20/24 13:38 11/20/24 13:42 Temperature 101 F H 101 F H Temperature Source Oral Oral Pulse Rate 130 H 130 H Respiratory Rate 16 16 Respiratory Effort Respiratory Depth Respiratory Pattern Blood Pressure 142/78 H 142/78 H Blood Pressure Mean 99 99 Pulse Ox 92 92 Oxygen Delivery Method Room Air Room Air Room Air 11/20/24 13:42 11/20/24 14:06 11/20/24 14:38 Temperature 100.1 F H Temperature Source Axillary Pulse Rate 117 H Respiratory Rate 32 H Respiratory Effort Short of Breath Respiratory Depth Normal Respiratory Pattern Tachypnea Blood Pressure 80/40 L Blood Pressure Mean 53 Pulse Ox 93 93 Oxygen Delivery Method Room Air Room Air Room Air 11/20/24 14:52 11/20/24 15:29 Temperature Temperature Source Pulse Rate 113 H 127 H Respiratory Rate 18 30 H Respiratory Effort Respiratory Depth Respiratory Pattern Normal Blood Pressure 96/54 L Blood Pressure Mean 68 Pulse Ox 93 Oxygen Delivery Method Room Air Positive well nourished and well developed General Appearance ED: well developed; Negative for cyanotic, diaphoretic, NAD or pallor HEENT Reports dry mucous membranes Mouth ED: Yes dry mucous membranes Mouth: dry mucous membranes Eyes PERRL and EOMs intact bilaterally General Eye ED: Yes pale conjunctiva; Negative for scleral icterus Neck no lymphadenopathy, supple and no JVD Chest Wall inspection of chest normal and palpation of chest normal Resp normal respiratory effort and No clear to auscultation bilaterally Resp Narrative: Bilateral expiratory wheezing heard throughout. Bilateral rales on inspiration heard throughout. Cardio regular rhythm, S1 normal heart sound, S2 normal heart sound and no murmurs Rate: tachycardic GI normal to inspection, nondistended, normoactive bowel sounds, non-tender, non-distended and no masses; Negative for hepatosplenomegaly Back/Spine no CVA tenderness Extremity normal to inspection General Extremety ED: Negative for edema or tenderness General Extremity: Negative for edema Neuro oriented x3 and CN's II-XII intact bilaterally Sensorium / Orientation: alert Psych Mood & Affect: depressed Skin no rashes or lesions noted, no wounds and skin turgor normal General Skin Exam: Negative for jaundice or pallor Sepsis Attestation Sepsis Alert: Yes Sepsis Attestation: Agree w/Sepsis Date exam was performed: 11/20/24 Time exam was performed: 15:29 Possible Source of Sepsis: Pulmonary Sepsis Organ Dysfunction Criteria Present: SBP < 90 mmHg or MAP < 65 mmHg Fluid Resuscitation Fluid resuscitation indicated?: Yes Fluid Resuscitation ordered: 30 ml/kg fluid bolus ordered Amount of fluid ordered: 1,550 Sepsis Note Date exam was performed: 11/20/24 Time exam was performed: 15:57 Sepsis Attestation: Sepsis re-evaluation was performed Response to fluids: Fluid responsive hypotension (Blood pressure is 94/54 with amean arterial pressure 75) MDM MDM MDM Narrative Medical decision making narrative: Case was discussed with infectious disease. Antibiotics were not initially started since she is present on antibiotics and on primaquine for presumed pneumocystis infection. After discussion with Dr. Arellano patient was startedon vancomycin and Zosyn. Since patient was hypotensive she received a 30 cc/kg bolus. The hospitalist was paged for admission. Patient does meet criteria forsepsis. Lab Data Attestation: I reviewed the patient's lab results. Lab results narrative: Patient is neutropenic. She is also anemic. Based on prior labs she has iron deficiency anemia. Electrolyte panel is remarkable for hyponatremia, hypokalemia, CO2 is 19.8 with an anion gap of 14. BUN to creatinine ratio is elevated. Glucose is slightly elevated 134. LDH is greater than 2 times normalwhich raises concern for pneumocystis jiroveci infection. Labs: Laboratory Results - last 24 hr 11/20/24 11/20/24 13:46 14:15 WBC 3.3 L RBC 2.91 L Hgb 8.6 L Hct 25.2 L MCV 86.6 MCH 29.6 MCHC 34.1 RDW Std Deviation 49.8 H RDW Coeff of Deb 15.8 H Plt Count 228 MPV 10.5 Immature Gran % (Auto) 0.600 Neut % (Auto) 84.7 H Lymph % (Auto) 4.9 L Roosevelt % (Auto) 3.1 Eos % (Auto) 6.4 H Baso % (Auto) 0.3 Absolute Neuts (auto) 2.8 Absolute Lymphs (auto) 0.16 L Nucleated RBC % 0 Differential Comment COMMENT Sodium 132 L Potassium 2.9 L Chloride 97 L Carbon Dioxide 19.8 L Anion Gap 14 BUN 22 H Creatinine 0.98 Estim Creat Clear Calc 55.36 Est GFR (MDRD) Non-Af 75 BUN/Creatinine Ratio 22.6 H Glucose 134 H Calcium 9.3 Lactate Dehydrogenase 648 H Radiography Chest X-Ray - ED: 2 View and Read by ED Physician (Independent review interpreted by me as multifocal bilateral interstitial patchy infiltrates involving all lung anne. This is a significant change from her chest x-ray dated November 06. CT revealed bilateral interstitial patchy infiltrates that was performed on same date.) Diagnostic Testing: Clinical Impression(s) from Imaging Studies Chest X-Ray 11/20/24 14:40 IMPRESSION: Multifocal bilateral areas of patchy airspace disease as described. Infectious process should be ruled out. Radiographic follow-up recommended. Reading Location: [facility] Management Discussion w/another healthcare provider: Crepe Machine Operator (Spoke with Dr. Arellano who has seen patient on prior admission. He recommended vancomycin and Zosyn. These were ordered.) Treatment and Re-Evaluation :: I was informed by nurse that her blood pressure has dropped to 80/40. She will receive a 30 cc/kg bolus. Blood cultures lactate was ordered. Since she is on multiple antiantibiotics, and concern for opportunistic infection we will contact infectious disease to discuss treatment options and what else should be added to her present regimen. Critical Care Time Critical Care Time: Yes Critical care time (excluding procedures): 30-74 minutes (34), Including time spent: (History, physical, documentation, independent rotation laboratory results and treatment for possible opportunistic infection.), Discussing w/Patient &/or Family/Operations Administrator (Discussion with patient and family member regarding HIV, AIDS opportunistic infection sepsis), Discussing w/Consultants (Hospitalist and infectious disease) and Arranging Admission or Transfer Discharge Plan Triage Chief Complaint: Shortness of Breath ED Provider: Parish Frias Dx/Rx/DC Orders Clinical Impression: Bilateral interstitial pneumonia, Severe sepsis, Neutropenia associated with infection, Hyponatremia, Hypochloremia, Acute prerenal azotemia, Nondiabetic hyperglycemia, Iron deficiency anemia, Hypoxia Prescriptions: No Action fluconazole 100 mg Tablet 100 mg PO DAILY 7 Days Qty: 7 0RF primaquine 26.3 mg (15 mg base) Tablet 52.6 mg PO DAILY 19 Days Qty: 38 0RF clindamycin HCl [Cleocin HCl] 150 mg capsule 450 mg PO TID 19 Days Qty: 171 0RF Biktarvy 50-200-25 mg tablet 1 tab PO DAILY Qty: 30 2RF cefdinir 300 mg capsule 300 mg PO BID Qty: 10 0RF lorazepam 0.5 mg tablet 0.5 mg PO BID PRN (Reason: anxiety) Qty: 6 0RF ondansetron HCl 8 mg tablet 8 mg PO Q8H PRN (Reason: nausea and vomiting) Qty: 10 0RF Primary Care Provider: Tia Hudson Referrals: Tia Hudson NP-C [Primary Care Provider] - Print Language: Colombian Disposition Disposition: Acute Care Hospital [facility] What to do if you have Problems For any increased pain, shortness of breath, bleeding, nausea or vomiting, chestpain, or any unexpected problems, contact your Primary Care Provider. Call [facility] ([phone]) or report to the closest Emergency Room. Call 911 if necessary. 11/20/24 1604 <Electronically signed by Parish Frias MD> Cosigner Signature (if applicable): CC: LILI Hudson ~ Signed [facility] Work Phone: [phone]) 555-772606-07-2025 Discharge summary [facility] Medical Records Department [address] [place] [address] Discharge Summary 11/09/24 1254 MR#: [id number] Acct: [id number] Name: ALMA DELIA DOW Rep #:[id number] : 1985 38 From: Pb Adams DO PCP: Care Physician,No Primary Status :ADM IN Location: [place] [address] Providers Date of Admission: 11/06/24 Primary Care Physician: Ewa Primary Care Phys Consultations 11/06/24 16:42 Consult: Brush Stainer / Pulmonary Medicine Routine Consulting Provider: Intensivists/Pulmonary Med Reason for Consult: B interstitial infiltrates EMERGENT Consult: No MD Notified: Yes Date Notified: 11/06/24 Time Notified: 15:58 Method of Notification: Tele Med Consult placed 11/07/24 09:19 Consult: Infectious Disease Routine Consulting Provider: Chidi Arellano Reason for Consult: HIV + EMERGENT Consult: No Notified: Yes Date Notified: 11/07/24 Time Notified: 09:20 Method of Notification: Verbal Reason For Visit: HYPOXIA 2/2 CAP Diagnosis Discharge Diagnosis (1) Bilateral interstitial pneumonia: Status: Acute Code(s): J84.9 - Interstitial pulmonary disease, unspecified Plan: Diffuse bilaterally. Unclear type. Given the +HIV test, concern for Pneumocystisjiroveci infection. On vancomycin, clindamycin, fluconazole. Methylpred Methylpred, BDs, respiratory panel Blood culture pending autoimmune work ordered Endoscopy performed on 11/08 which was grossly normal DW Dr. Arellano on 11/08: ok for discharge on 11/09. Follow up with ID for results of the studies. Cefdinir for pneumonia. Fluconazole. Biktarvy. Primaquine (discussed w patient--not for malaria, but concern for PCP) (2) HIV (human immunodeficiency virus infection): Status: Acute Code(s): Z21 - Asymptomatic human immunodeficiency virus [HIV] infection status Plan: Concern for active infection, cannot rule out the possibility of AIDS at this time. ID consulted. CD4, viral load pending Plan VTE prophylaxis: LMWH. Medications at Discharge Home Medications bictegravir 50 mg-emtricitabine 200 mg-tenofovir alafenam 25 mg tablet (Biktarvy) 1 tab PO DAILY #30 tabs 11/08/24 cefdinir 300 mg capsule 300 mg PO BID #10 caps 11/08/24 clindamycin HCl 150 mg capsule (Cleocin HCl) 450 mg (3 x 150 mg) PO TID 19 days #171 caps 11/08/24 fluconazole 100 mg tablet 100 mg PO DAILY 7 days #7 tabs 11/08/24 primaquine 26.3 mg (15 mg base) tablet 52.6 mg (2 x 26.3 mg (15 mg base)) PO DAILY 19 days #38 tabs11/08/24 Hospital Course Operations None Procedures Bronchoscopy Summary of Care Provided Minutes Spent on Discharge: 35 Medical Records Data Medical Nutrition Assessment Dietitian: Malnutrition Criteria Met Start: 11/07/24 10:31 Freq: Status: Active Protocol: Document 11/07/24 11:07 SB (Rec: 11/07/24 11:08 [id number]) Nutrition Malnutrition Evidence of Yes Malnutrition Exists Malnutrition (severe Chronic ): Evidenced By Suboptimal Energy Intake (Severe),Weight Loss (Severe) Clinical Problem Chronic Disease or Condition Related Malnutrition Etiology severe related to inadequate oral intake Signs/Symptoms as evidenced by PO meeting <75% of estimated nutrition needs x 4 months and 18% weight loss x 6 months. Status Active Problem Recommendation Dietitian Continue regular diet. Recommendations/ Pt denied ONS at this time, will ask again at time of Changes follow up if PO is still poor. Will order orange/red Gatorade per pt request. Will monitor weight trends. Weight / BMI Weight Weight: 55.8 kg Body Mass Index (BMI) 24.0 ABG / Lab / Microbiology Data 11/08/24 04:19 11/08/24 04:19 Laboratory: Laboratory Results - last 24 hr 11/07/24 15:14: Miscellaneous Test 2 Cancelled 11/08/24 11:37: Fluid Source BRONCHIAL LAVAGE, Fluid Color COLORLESS, Fluid Appearance CLOUDY, Fluid WBC 670, Fluid RBC 130, Fluid Tot Cell Count TNP, Fluid Neutrophils 84, Fluid Lymphocytes 8, FluidOther Cells 8, Fl Pathologist Comment May follow Microbiology: Microbiology 11/08/24 11:37 Bronchial Lavage - Right Middle Lobe Respiratory Culture - Preliminary Presumptive C albicans 11/07/24 Unknown Urine, Clean Catch Chlamydia/Neisseria (PCR) - Final 11/07/24 11:21 Nasal Secretion MRSA (PCR) - Final 11/06/24 17:54 Mucosa - Nasopharyngeal Respiratory Panel (PCR) - Final 11/06/24 Unknown Urine, Random Legionella Antigen - Final 11/06/24 Unknown Urine, Random Streptococcus pneumoniae Antigen (M - Final 11/06/24 11:49 Mucosa - Nose SARS-CoV-2, Influenza & RSV (PCR) - Final D/C Instructions Discharge Diet: No restrictions DC O2, CPAP, BIPAP Needs Home O2 Discharge instructions: No Meaningful Use Info Meaningful Use Meaningful Use Diagnoses (Choose all that apply): None applicable Ischemic Stroke Statin Dosing Therapy Reference: STATIN DOSE THERAPY REFERENCE: * Patients > 75 years receive moderate or high dose statin therapy. * Patients 75 years or YOUNGER should receive HIGH intensity statin dose unless contraindicated. You will be required to document reason for non-treatment if statin daily dose does not meet guidelines. HIGH DOSE STATIN THERAPY DAILY Atorvastatin > than or = to 40 mg Rosuvastatin > than or = to 20 mg Amlodipine + Atorvastatin > than or = to 2.5/40 mg Ezetimibe + Simvastatin 10/80 mg Simvastatin 80mg Discharge Plan Admission Admit Date/Time: 11/06/24 15:43 Primary Reason for Your Visit: pneumonia Attending Provider: Pb Adams Primary Care Provider: Care Physician,No Primary Consulting Providers: Damian Lorenzo; Rick Charles; Kee Rodgers; Rangel Cardona; Martell Yin; Martin Rodriguez; Irving Torres; Krissy Wolfe; Miguel Butler; Jimmy Nelson; Juan Carlos Padilla; Maddie Hess; Nan Watson; Sabina Balderas; Davey Rivera; Wilmer Amin; Igor Fall; Sammy Sandhu; Noah Peterson; Suhail Thorpe; Antwon Razo; Mark Coker; Walt Krishnan; Shayy Dodson; Chidi Arellano Discharge Orders/Prescriptions Prescriptions: New fluconazole 100 mg Tablet 100 mg PO DAILY 7 Days Qty: 7 0RF primaquine 26.3 mg (15 mg base) Tablet 52.6 mg PO DAILY 19 Days Qty: 38 0RF clindamycin HCl [Cleocin HCl] 150 mg capsule 450 mg PO TID 19 Days Qty: 171 0RF Biktarvy 50-200-25 mg tablet 1 tab PO DAILY Qty: 30 2RF cefdinir 300 mg capsule 300 mg PO BID Qty: 10 0RF Referrals / Follow Up: Haydee Zambrano [Provider Group] - Within 2 Weeks Chidi Arellano MD [Med Staff - Active Staff] - Within 2 Weeks Care Physician,No Primary [Primary Care Provider] - Disposition Disposition (needs filled in before D/C Order can be placed): Home, Self Care Charges/Coding Visit Charges Inpatient E&M: 79615 Disch Hosp >30min 11/09/24 1256 Cosigner Signature (if applicable): CC: Dr. Pb Adams DO; No Primary Care Physician~ Signed [facility]06-07-2025 [facility] Medical Records Department [address] [place] [address] Discharge Summary 11/09/24 1254 MR#: [id number] Acct: [id number] Name: ALMA DELIA DOW Rep #: [id number] : 1985 38 From: Pb Adams DO PCP: Care Physician,No Primary Status:ADM IN Location: [place] [address] Providers Date of Admission: 11/06/24 Primary Care Physician: No Primary Care Phys Consultations 11/06/24 16:42 Consult: Brush Stainer / Pulmonary Medicine Routine Consulting Provider: Intensivists/Pulmonary Med Reason for Consult: B interstitial infiltrates EMERGENT Consult: No Notified: Yes Date Notified: 11/06/24 Time Notified: 15:58 Method of Notification: Tele Med Consult placed 11/07/24 09:19 Consult: Infectious Disease Routine Consulting Provider: Chidi Arellano Reason for Consult: HIV + EMERGENT Consult: No Notified: Yes Date Notified: 11/07/24 Time Notified: 09:20 Method of Notification: Verbal Reason For Visit: HYPOXIA 2/2 CAP Diagnosis Discharge Diagnosis (1) Bilateral interstitial pneumonia: Status: Acute Code(s): J84.9 - Interstitial pulmonary disease, unspecified Plan: Diffuse bilaterally. Unclear type. Given the +HIV test, concern for Pneumocystis jiroveci infection. On vancomycin, clindamycin, fluconazole. Methylpred Methylpred, BDs, respiratory panel Blood culture pending autoimmune work ordered Endoscopy performed on 11/08 which was grossly normal DW Dr. Arellano on 11/08: ok for discharge on 11/09. Follow up with ID for results of the studies. Cefdinir for pneumonia. Fluconazole. Biktarvy. Primaquine (discussed w patient--not for malaria, but concern for PCP) (2) HIV (human immunodeficiency virus infection): Status: Acute Code(s): Z21 - Asymptomatic human immunodeficiency virus [HIV] infection status Plan: Concern for active infection, cannot rule out the possibility of AIDS at this time. ID consulted. CD4, viral load pending Plan VTE prophylaxis: LMWH. Medications at Discharge Home Medications bictegravir 50 mg-emtricitabine 200 mg-tenofovir alafenam 25 mg tablet (Biktarvy) 1 tab PO DAILY #30 tabs 11/08/24 cefdinir 300 mg capsule 300 mg PO BID #10 caps 11/08/24 clindamycin HCl 150 mg capsule (Cleocin HCl) 450 mg (3 x 150 mg) PO TID 19 days #171 caps 11/08/24 fluconazole 100 mg tablet 100 mg PO DAILY 7 days #7 tabs 11/08/24 primaquine 26.3 mg (15 mg base) tablet 52.6 mg (2 x 26.3 mg (15 mg base)) PO DAILY 19 days #38 tabs 11/08/24 Hospital Course Operations None Procedures Bronchoscopy Summary of Care Provided Minutes Spent on Discharge: 35 Medical Records Data Medical Nutrition Assessment Dietitian: Malnutrition Criteria Met Start: 11/07/24 10:31 Freq: Status: Active Protocol: Document 11/07/24 11:07 SB (Rec: 11/07/24 11:08 SB [id number]) Nutrition Malnutrition Evidence of Yes Malnutrition Exists Malnutrition (severe Chronic ): Evidenced By Suboptimal Energy Intake (Severe),Weight Loss (Severe) Clinical Problem Chronic Disease or Condition Related Malnutrition Etiology severe related to inadequate oral intake Signs/Symptoms as evidenced by PO meeting <75% of estimated nutrition needs x 4 months and 18% weight loss x 6 months. Status Active Problem Recommendation Dietitian Continue regular diet. Recommendations/ Pt denied ONS at this time, will ask again at time of Changes follow up if PO is still poor. Will order orange/red Gatorade per pt request. Will monitor weight trends. Weight / BMI Weight Weight: 55.8 kg Body Mass Index (BMI) 24.0 ABG / Lab / Microbiology Data 11/08/24 04:19 11/08/24 04:19 Laboratory: Laboratory Results - last 24 hr 11/07/24 15:14: Miscellaneous Test 2 Cancelled 11/08/24 11:37: Fluid Source BRONCHIAL LAVAGE, Fluid Color COLORLESS, Fluid Appearance CLOUDY, Fluid WBC 670, Fluid RBC 130, Fluid Tot Cell Count TNP, Fluid Neutrophils 84, Fluid Lymphocytes 8, Fluid Other Cells 8, Fl Pathologist Comment May follow Microbiology: Microbiology 11/08/24 11:37 Bronchial Lavage - Right Middle Lobe Respiratory Culture - Preliminary Presumptive C albicans 11/07/24 Unknown Urine, Clean Catch Chlamydia/Neisseria (PCR) - Final 11/07/24 11:21 Nasal Secretion MRSA (PCR) - Final 11/06/24 17:54 Mucosa - Nasopharyngeal Respiratory Panel (PCR) - Final 11/06/24 Unknown Urine, Random Legionella Antigen - Final 11/06/24 Unknown Urine, Random Streptococcus pneumoniae Antigen (M - Final 11/06/24 11:49 Mucosa - Nose SARS-CoV-2, Influenza RSV (PCR) - Final D/C Instructions Discharge Diet: No restrictions DC O2, CPAP, BIPAP Needs Home O2 Discharge instructions: No Meaningful Use Info Meaningful Use Meaningful Use Diagnoses (Choose all that apply): None applicable Ischemic Stroke Statin Dosing Therapy Reference: (more content not included)...[facility]06-07-2025 Progress [facility] Department [address] [place] [address] Progress Note - Hospitalist 11/09/24 0919 MR#: [id number] Acct: [id number] Name: ALMA DELIA DOW Rep #:[id number] : 1985 38 From: Pb Adams DO PCP: Care Physician,No Primary Status :ADM IN Location: [place] [address] Reason for Visit Reason for Visit: Diagnoses Anemia, unspecified (11/06/24) Hypokalemia (11/06/24) Hypotension, unspecified (11/06/24) Interstitial pulmonary disease, unspecified (11/06/24) Hypoxemia (11/06/24) Asymptomatic human immunodeficiency virus [HIV] infection status (11/06/24) Subjective Subjective Feeling well. Breathing well. Objective Data Objective Data Vital Signs: Vital Signs Temp Pulse Resp BP Pulse Ox O2 Del Method O2 Flow Rate 36.6 C 92 17 122/94 H 99 Room Air 10 11/09/24 08:30 11/09/24 08:30 11/09/24 08:30 11/09/24 08:30 11/09/24 08:30 11/09/24 08:33 11/08/24 11:18 Oxygen Flow Rate (L/min) 10 Oxygen Delivery Method Room Air Weight: 55.8 kg Body Mass Index (BMI) 24.0 Intake & Output: Intake and Output for Last 24 Hours 11/07/24 11/08/24 11/09/24 23:59 23:59 23:59 Intake Total 3660 / 3860 1880 / 2880 1150 / 1150 Balance 3660 / 3860 1880 / 2880 1150 / 1150 Medical Nutrition Assessment Dietitian: Malnutrition Criteria Met Start: 11/07/24 10:31 Freq: Status: Active Protocol: Document 11/07/24 11:07 SB (Rec: 11/07/24 11:08 SB [id number]) Nutrition Malnutrition Evidence of Yes Malnutrition Exists Malnutrition (severe Chronic ): Evidenced By Suboptimal Energy Intake (Severe),Weight Loss (Severe) Clinical Problem Chronic Disease or Condition Related Malnutrition Etiology severe related to inadequate oral intake Signs/Symptoms as evidenced by PO meeting <75% of estimated nutrition needs x 4 months and 18% weight loss x 6 months. Status Active Problem Recommendation Dietitian Continue regular diet. Recommendations/ Pt denied ONS at this time, will ask again at time of Changes follow up if PO is still poor. Will order orange/red Gatorade per pt request. Will monitor weight trends. Lab / Micro Data 11/08/24 04:19 11/08/24 04:19 Labs: Laboratory Results - last 24 hr 11/07/24 15:14: Miscellaneous Test 2 Cancelled 11/08/24 09:10: Vancomycin Trough 13.0 11/08/24 11:37: Fluid Source BRONCHIAL LAVAGE, Fluid Color COLORLESS, Fluid Appearance CLOUDY, Fluid WBC 670, Fluid RBC 130, Fluid Tot Cell Count TNP, Fluid Neutrophils 84, Fluid Lymphocytes 8, FluidOther Cells 8, Fl Pathologist Comment May follow, Fluid Comment 2 Not Reportable Micro: Microbiology 11/07/24 Unknown Urine, Clean Catch Chlamydia/Neisseria (PCR) - Final 11/07/24 11:21 Nasal Secretion MRSA (PCR) - Final 11/06/24 17:54 Mucosa - Nasopharyngeal Respiratory Panel (PCR) - Final 11/06/24 Unknown Urine, Random Legionella Antigen - Final 11/06/24 Unknown Urine, Random Streptococcus pneumoniae Antigen (M - Final 11/06/24 11:49 Mucosa - Nose SARS-CoV-2, Influenza & RSV (PCR) - Final Physical Exam Const alert and no apparent distress Constitutional Narrative: up in chair. no respiratory distress. Assessment & Plan Assessment/Plan (1) Bilateral interstitial pneumonia: PLAN: Diffuse bilaterally. Unclear type. Given the +HIV test, concern for Pneumocystis jiroveci infection. On vancomycin, clindamycin, fluconazole. Methylpred Methylpred, BDs, respiratory panel Blood culture pending autoimmune work ordered Endoscopy performed on 11/08 which was grossly normal DW Dr. Arellano on 11/08: ok for discharge on 11/09. Follow up with ID for results of the studies. Cefdinir for pneumonia. Fluconazole. Biktarvy. Primaquine (discussed w patient--not for malaria, but concern for PCP) (2) HIV (human immunodeficiency virus infection): PLAN: Concern for active infection, cannot rule out the possibility of AIDS at this time. ID consulted. CD4, viral load pending PLAN: Plan VTE prophylaxis: LMWH. 11/09/24 1254 Cosigner Signature (if applicable): CC: ~ Signed [facility] [id number] Progress note Author Pb Adams [facility] Note Date/Time November 09, 2024 12:54 pm [facility] Medical Records Department [address] [place] [address] Progress Note - Hospitalist 11/09/24918 MR#: [id number] Acct: [id number] Name: ALMA DELIA DOW Rep #:[id number] : 1985 38 From: Pb Adams DO PCP: Care Physician,No Primary Status :ADM IN Location: [place] [address] Reason for Visit Reason for Visit: Diagnoses Anemia, unspecified (11/06/24) Hypokalemia (11/06/24) Hypotension, unspecified (11/06/24) Interstitial pulmonary disease, unspecified (11/06/24) Hypoxemia (11/06/24) Asymptomatic human immunodeficiency virus [HIV] infection status (11/06/24) Subjective Subjective Feeling well. Breathing well. Objective Data Objective Data Vital Signs: Vital Signs Temp Pulse Resp BP Pulse Ox O2 Del Method O2 Flow Rate 36.6 C 92 17 122/94 H 99 Room Air 10 11/09/24 08:30 11/09/24 08:30 11/09/24 08:30 11/09/24 08:30 11/09/24 08:30 11/09/24 08:33 11/08/24 11:18 Oxygen Flow Rate (L/min) 10 Oxygen Delivery Method Room Air Weight: 55.8 kg Body Mass Index (BMI) 24.0 Intake & Output: Intake and Output for Last 24 Hours 11/07/24 11/08/24 11/09/24 23:59 23:59 23:59 Intake Total 3660 / 3860 1880 / 2880 1150 / 1150 Balance 3660 / 3860 1880 / 2880 1150 / 1150 Medical Nutrition Assessment Dietitian: Malnutrition Criteria Met Start: 11/07/24 10:31 Freq: Status: Active Protocol: Document 11/07/24 11:07 SB (Rec: 11/07/24 11:08 SB [id number]) Nutrition Malnutrition Evidence of Yes Malnutrition Exists Malnutrition (severe Chronic ): Evidenced By Suboptimal Energy Intake (Severe),Weight Loss (Severe) Clinical Problem Chronic Disease or Condition Related Malnutrition Etiology severe related to inadequate oral intake Signs/Symptoms as evidenced by PO meeting <75% of estimated nutrition needs x 4 months and 18% weight loss x 6 months. Status Active Problem Recommendation Dietitian Continue regular diet. Recommendations/ Pt denied ONS at this time, will ask again at time of Changes follow up if PO is still poor. Will order orange/red Gatorade per pt request. Will monitor weight trends. Lab / Micro Data 11/08/24 04:19 11/08/24 04:19 Labs: Laboratory Results - last 24 hr 11/07/24 15:14: Miscellaneous Test 2 Cancelled 11/08/24 09:10: Vancomycin Trough 13.0 11/08/24 11:37: Fluid Source BRONCHIAL LAVAGE, Fluid Color COLORLESS, Fluid Appearance CLOUDY, Fluid WBC 670, Fluid RBC 130, Fluid Tot Cell Count TNP, Fluid Neutrophils 84, Fluid Lymphocytes 8, Fluid Other Cells 8, Fl Pathologist Comment May follow, Fluid Comment 2 Not Reportable Micro: Microbiology 11/07/24 Unknown Urine, Clean Catch Chlamydia/Neisseria (PCR) - Final 11/07/24 11:21 Nasal Secretion MRSA (PCR) - Final 11/06/24 17:54 Mucosa - Nasopharyngeal Respiratory Panel (PCR) - Final 11/06/24 Unknown Urine, Random Legionella Antigen - Final 11/06/24 Unknown Urine, Random Streptococcus pneumoniae Antigen (M - Final 11/06/24 11:49 Mucosa - Nose SARS-CoV-2, Influenza & RSV (PCR) - Final Physical Exam Const alert and no apparent distress Constitutional Narrative: up in chair. no respiratory distress. Assessment & Plan Assessment/Plan (1) Bilateral interstitial pneumonia: PLAN: Diffuse bilaterally. Unclear type. Given the +HIV test, concern for Pneumocystis jiroveci infection. On vancomycin, clindamycin, fluconazole. Methylpred Methylpred, BDs, respiratory panel Blood culture pending autoimmune work ordered Endoscopy performed on 11/08 which was grossly normal DW Dr. Arellano on 11/08: ok for discharge on 11/09. Follow up with ID for results of the studies. Cefdinir for pneumonia. Fluconazole. Biktarvy. Primaquine (discussed w patient--not for malaria, but concern for PCP) (2) HIV (human immunodeficiency virus infection): PLAN: Concern for active infection, cannot rule out the possibility of AIDS at this time. ID consulted. CD4, viral load pending PLAN: Plan VTE prophylaxis: LMWH. 11/09/24 1254 <Electronically signed by Pb Adams DO> Cosigner Signature (if applicable): CC: ~ Signed [facility] Work Phone: 1(545) 706-512206-06-2025 Progress note Author Chidi Arellano [facility] Note Date/Time November 08, 2024 3:58p m [facility] Medical Records Department [address] [place] [address] Progress Note - Infect Disease 11/08/24 1555 MR#: [id number] Acct: [id number] Name: ALMA DELIA DOW Rep #:[id number] : 1985 38 From: Chidi vivas MD PCP: Care Physician,No Primary Status :ADM IN Location: [place] [address] Physical Exam Narrative Bronch done today, feeling better, sweats/fever/breathing improved. No n/v/d. Feeling upset and frustrated. Wants to go home. Const alert and no apparent distress General Appearance: cooperative Resp normal air movement and clear to auscultation bilaterally Cardio regular rate and regular rhythm GI soft to palpation, non-tender and non-distended Extremity General Extremity: Negative for edema Skin no rashes or lesions noted ID ID: Route of nutrition/ use of supplements: [] Nutritional Intake: [] IV Site: [] Hernandez Catheter: [] Assessment & Plan Assessment/Plan (1) Bilateral interstitial pneumonia: (2) HIV (human immunodeficiency virus infection): PLAN: HIV prelim (+) with hypoxia and several months of dyspnea, dry cough, fatigue, weight loss. CT shows bilat interstitial infiltrates. Concern for OI. Will test for ebv, cmv, histo, crypto, toxo. Uags neg. Resp pcr panel neg. D/w pulm, bronch done today; would send for PJP staining, AFB, fungal, and bacterial cultures. High concern for PJP, has elevated LDH. ABG done. On solumedrol. Has h/o bactrim reaction (ANDREA and bone marrow suppression), so 6/ started clinda and primaquine. Cover with vanc/cefepime for now. For HIV, counseled her re: risk factors for HIV spread, natural history of illness, and role of treatment. Checking viral load, genotype, CD4, STI screen, TB IGRA, lipid panel, and hepatitis screen. Mild transaminitis here. She does not want family to know diagnosis. For reported thrush, will do 10 days of fluconazole. Plan for discharge will be cefdinir for CAP coverage, clinda and primaquine for PJP coverage, fluconazole for thrush, and biktarvy for empiric HIV treatment. Gave her the # for [facility] and counseled her re: potential side effects and importance of compliance with hiv therapy. Will follow, thank you, d/w Dr. Adams and Dr. Cardona. ID followup in 1-2 weeks. 11/08/24 1558 <Electronically signed by Chidi Arellano MD> Cosigner Signature (if applicable): CC: ~ Signed [facility] Work Phone: 1(272) 922-530506-06-2025 Progress note Author Pb Adams [facility] Note Date/Time November 08, 2024 2:34p m [facility] Medical Records Department [address] [place] [address] Progress Note - Hospitalist 11/08/24 0857 MR#: [id number] Acct: [id number] Name: ALMA DELIA DOW Rep #:[id number] : 1985 38 From: bP Adams DO PCP: Care Physician,No Primary Status :ADM IN Location: [place] [address] Reason for Visit Reason for Visit: Diagnoses Anemia, unspecified (11/06/24) Hypokalemia (11/06/24) Hypotension, unspecified (11/06/24) Interstitial pulmonary disease, unspecified (11/06/24) Hypoxemia (11/06/24) Asymptomatic human immunodeficiency virus [HIV] infection status (11/06/24) Subjective Subjective Breathing better today. Objective Data Objective Data Vital Signs: Vital Signs Temp Pulse Resp BP Pulse Ox O2 Del Method O2 Flow Rate 36.8 C 87 18 116/78 99 Nasal Cannula 1 11/07/24 15:07 11/07/24 15:07 11/07/24 15:07 11/07/24 15:07 11/07/24 15:07 11/07/24 18:00 11/07/24 18:00 Oxygen Flow Rate (L/min) 1 Oxygen Delivery Method Nasal Cannula Weight: 55.8 kg Body Mass Index (BMI) 24.0 Intake & Output: Intake and Output for Last 24 Hours 11/06/24 11/07/24 11/08/24 23:59 23:59 23:59 Intake Total 2150 / 2150 3660 / 3660 150 / 150 Output Total 500 / 500 Balance 1650 / 1650 3660 / 3660 150 / 150 Medical Nutrition Assessment Dietitian: Malnutrition Criteria Met Start: 11/07/24 10:31 Freq: Status: Active Protocol: Document 11/07/24 11:07 SB (Rec: 11/07/24 11:08 SB [id number]) Nutrition Malnutrition Evidence of Yes Malnutrition Exists Malnutrition (severe Chronic ): Evidenced By Suboptimal Energy Intake (Severe),Weight Loss (Severe) Clinical Problem Chronic Disease or Condition Related Malnutrition Etiology severe related to inadequate oral intake Signs/Symptoms as evidenced by PO meeting <75% of estimated nutrition needs x 4 months and 18% weight loss x 6 months. Status Active Problem Recommendation Dietitian Continue regular diet. Recommendations/ Pt denied ONS at this time, will ask again at time of Changes follow up if PO is still poor. Will order orange/red Gatorade per pt request. Will monitor weight trends. Lab / Micro Data 11/08/24 04:19 11/08/24 04:19 Labs: Laboratory Results - last 24 hr 11/07/24 10:30: Lactate Dehydrogenase 599 H, Syphilis Total Ab Nonreactive, Chlamydia DNA (JULISSA) Cancelled, Hep Bs Antigen Nonreactive, Hep Bs Antibody Nonreactive, Hepatitis C Antibody Nonreactive, N.gonorrhoeae DNA (JULISSA) Cancelled, Toxoplasma IgG Ab < 3.0, Toxoplasma gondii IgM < 3.0, Toxoplasma Comment Comment 11/08/24 04:19: WBC 5.3, RBC 2.72 L, Hgb 8.2 L, Hct 24.6 L, MCV 90.4, MCH 30.1, MCHC 33.3, RDW Std Deviation 52.0 H, RDW Coeff of Deb 15.7 H, Plt Count 125 L, MPV 10.7, Immature Gran % (Auto) 0.800, Neut % (Auto) 89.7 H, Lymph % (Auto) 5.5 L, Roosevelt % (Auto) 4.0, Eos % (Auto) 0.0, Baso % (Auto) 0.0, Absolute Neuts (auto) 4.7, Absolute Lymphs (auto) 0.29 L, Nucleated RBC % 0, Sodium 138, Potassium 3.7, Chloride 109 H, Carbon Dioxide 16.8 L, Anion Gap 12, BUN 15, Creatinine 0.66 L, Estim Creat Clear Calc 90.53, Est GFR (MDRD) Non-Af 115, BUN/Creatinine Ratio 22.5 H, Glucose 163 H, Calcium 9.1, Triglycerides 279 H, Cholesterol 177, LDL Cholesterol, Calc 99, VLDL Cholesterol 56 H, HDL Cholesterol 22 L, Cholesterol/HDL Ratio 7.94 Micro: Microbiology 11/07/24 Unknown Urine, Clean Catch Chlamydia/Neisseria (PCR) - Final 11/07/24 11:21 Nasal Secretion MRSA (PCR) - Final 11/06/24 17:54 Mucosa - Nasopharyngeal Respiratory Panel (PCR) - Final 11/06/24 Unknown Urine, Random Legionella Antigen - Final 11/06/24 Unknown Urine, Random Streptococcus pneumoniae Antigen (M - Final 11/06/24 11:49 Mucosa - Nose SARS-CoV-2, Influenza & RSV (PCR) - Final Physical Exam Const alert and no apparent distress HEENT head/scalp atraumatic and moist oral mucous membranes Resp normal respiratory effort, no retractions, no use of accessory muscles and clear to auscultation bilaterally Cardio regular rate, regular rhythm, S1 normal heart sound and S2 normal heart sound GI normal to inspection, nondistended, normoactive bowel sounds, soft to palpation, non-tender and non-distended Extremity normal to inspection and full ROM Assessment & Plan Assessment/Plan (1) Bilateral interstitial pneumonia: PLAN: Diffuse bilaterally. Unclear type. Given the +HIV test, concern for Pneumocystis jiroveci infection. On vancomycin, clindamycin, fluconazole. Methylpred Methylpred, BDs, respiratory panel Blood culture pending autoimmune work ordered DW Dr. Cardona, plan for endoscopy. (2) HIV (human immunodeficiency virus infection): PLAN: Concern for active infection, cannot rule out the possibility of AIDS at this time. ID consulted. CD4, viral load pending PLAN: Plan VTE prophylaxis: LMWH. Charges/Coding Visit Charges Inpatient E&M: 19376 Subs Hosp L2 11/08/24 1434 <Electronically signed by Pb Adams DO> Cosigner Signature (if applicable): CC: ~ Signed [facility] Work Phone: 1(229) 847-213006-06-2025 Progress note [facility] Medical Records Department [address] [place] [address] Progress Note - Infect Disease 11/08/24 1555 MR#: [id number] Acct: [id number] Name: ALMA DELIA DOW Rep #:[id number] : 1985 38 From: Chidi vivas MD PCP: Care Physician,No Primary Status :ADM IN Location: [place] [address] Physical Exam Narrative Bronch done today, feeling better, sweats/fever/breathing improved. No n/v/d. Feeling upset and frustrated. Wants to go home. Const alert and no apparent distress General Appearance: cooperative Resp normal air movement and clear to auscultation bilaterally Cardio regular rate and regular rhythm GI soft to palpation, non-tender and non-distended Extremity General Extremity: Negative for edema Skin no rashes or lesions noted ID ID: Route of nutrition/ use of supplements: [] Nutritional Intake: [] IV Site: [] Hernandez Catheter: [] Assessment & Plan Assessment/Plan (1) Bilateral interstitial pneumonia: (2) HIV (human immunodeficiency virus infection): PLAN: HIV prelim (+) with hypoxia and several months of dyspnea, dry cough, fatigue, weight loss. CT shows bilat interstitial infiltrates. Concern for OI. Will test for ebv, cmv, histo, crypto, toxo.Uags neg. Resp pcr panel neg. D/w pulm, bronch done today; would send for PJP staining, AFB, fungal, and bacterial cultures. High concern for PJP, has elevated LDH. ABG done. On solumedrol. Has h/o bactrim reaction (ANDREA and bone marrow suppression), so 6/ started clinda and primaquine. Cover with vanc/cefepime for now. For HIV, counseled her re: risk factors for HIV spread, natural history of illness, and role of treatment. Checking viral load, genotype, CD4, STI screen, TB IGRA, lipid panel, and hepatitis screen. Mild transaminitis here. She does not want family to know diagnosis. For reported thrush, will do 10 days of fluconazole. Plan for discharge will be cefdinir for CAP coverage, clinda and primaquine for PJP coverage, fluconazole for thrush, and biktarvy for empiric HIV treatment. Gave her the # for [facility] and counseled her re: potential side effects and importance of compliance with hiv therapy. Will follow, thank you, d/w Dr. Adams and Dr. Cardona. ID followup in 1-2 weeks. 11/08/24 9528 Cosigner Signature (if applicable): CC: ~ Signed [facility]-06-2025 Consult note Author Pb Michaels [facility] Note Date/Time November 08, 2024 1:03p [facility] Medical Records Department [address] [facility] [place] [address] Pharmacokinetic/Renal -Consult 11/06/24 2301 MR#: [id number] Acct: [id number] Name: ALMA DELIA DOW Rep #:[id number] : 1985 38 From: Pb Michaels PCP: Care Physician,No Primary Status :ADM IN Y Location: [facility] [place] [address] Consult Antibiotic Management Pharmacy has been consulted to manage selected antibiotic: Vancomycin Type of Intervention Type of Consult: New start Suspected Infection Suspected Infection: Pneumonia Labs Labs: Sodium 135 mmol/L (133-145) 11/06/24 11:49 Potassium 2.8 mmol/L (3.3-5.1) L 11/06/24 11:49 Chloride 100 mmol/L (98-108) 11/06/24 11:49 Carbon Dioxide 21.8 mmol/L (21.0-32.0) 11/06/24 11:49 Anion Gap 13 (5-15) 11/06/24 11:49 BUN 13 mg/dL (4-19) 11/06/24 11:49 Creatinine 0.80 mg/dL (0.70-1.20) 11/06/24 11:49 Est GFR (MDRD) Non-Af 97 (>60) 11/06/24 11:49 BUN/Creatinine Ratio 16.6 RATIO (10-20) 11/06/24 11:49 Glucose 105 mg/dL (70-99) H 11/06/24 11:49 Microbiology Microbiology: Microbiology 11/06/24 17:54 Mucosa - Nasopharyngeal Respiratory Panel (PCR) - Final 11/06/24 Unknown Urine, Random Legionella Antigen - Final 11/06/24 Unknown Urine, Random Streptococcus pneumoniae Antigen (M - Final 11/06/24 11:49 Mucosa - Nose SARS-CoV-2, Influenza & RSV (PCR) - Final Dosing Weight Weight used for dosin.8 kg Estimated Creatinine Clearance Estimated Creatinine Clearance: 68 Goal Trough Goal Trough: 15-20 mcg/mL Pharmacy Plan for Drug Dosing Pharmacy Plan for Drug Dosing: Pharmacy Service will continue to monitor and adjust dosing as required. Follow-Up Labs Follow-Up Labs: Trough: Vancomycin Date/Time Labs Ordered Labs to be done on [date and time ordered]: 11/08/24 @0930 11/06/24 2302 <Electronically signed by Pb Tejeda ds> Date _ Pb Michaels 11/08/24 1303 <Electronically signed by Shayy Morales> Cosigner Signature (if applicable): Date Shayy Dodson DO CC: ~ Signed [facility] Work Phone: 1(429) 654-533306-06-2025 Progress note [facility] Medical Records Department [address] [place] [address] Progress Note - Hospitalist 11/08/24 0857 MR#: [id number] Acct: [id number] Name: ALMA DELIA DOW Rep #:[id number] : 1985 38 From: Pb Adams DO PCP: Care Physician,No Primary Status :ADM IN Location: [place] [address] Reason for Visit Reason for Visit: Diagnoses Anemia, unspecified (11/06/24) Hypokalemia (11/06/24) Hypotension, unspecified (11/06/24) Interstitial pulmonary disease, unspecified (11/06/24) Hypoxemia (11/06/24) Asymptomatic human immunodeficiency virus [HIV] infection status (11/06/24) Subjective Subjective Breathing better today. Objective Data Objective Data Vital Signs: Vital Signs Temp Pulse Resp BP Pulse Ox O2 Del Method O2 Flow Rate 36.8 C 87 18 116/78 99 Nasal Cannula 1 11/07/24 15:07 11/07/24 15:07 11/07/24 15:07 11/07/24 15:07 11/07/24 15:07 11/07/24 18:00 11/07/24 18:00 Oxygen Flow Rate (L/min) 1 Oxygen Delivery Method Nasal Cannula Weight: 55.8 kg Body Mass Index (BMI) 24.0 Intake & Output: Intake and Output for Last 24 Hours 11/06/24 11/07/24 11/08/24 23:59 23:59 23:59 Intake Total 2150 / 2150 3660 / 3660 150 / 150 Output Total 500 / 500 Balance 1650 / 1650 3660 / 3660 150 / 150 Medical Nutrition Assessment Dietitian: Malnutrition Criteria Met Start: 11/07/24 10:31 Freq: Status: Active Protocol: Document 11/07/24 11:07 SB (Rec: 11/07/24 11:08 SB [id number]) Nutrition Malnutrition Evidence of Yes Malnutrition Exists Malnutrition (severe Chronic ): Evidenced By Suboptimal Energy Intake (Severe),Weight Loss (Severe) Clinical Problem Chronic Disease or Condition Related Malnutrition Etiology severe related to inadequate oral intake Signs/Symptoms as evidenced by PO meeting <75% of estimated nutrition needs x 4 months and 18% weight loss x 6 months. Status Active Problem Recommendation Dietitian Continue regular diet. Recommendations/ Pt denied ONS at this time, will ask again at time of Changes follow up if PO is still poor. Will order orange/red Gatorade per pt request. Will monitor weight trends. Lab / Micro Data 11/08/24 04:19 11/08/24 04:19 Labs: Laboratory Results - last 24 hr 11/07/24 10:30: Lactate Dehydrogenase 599 H, Syphilis Total Ab Nonreactive, Chlamydia DNA (JULISSA) Cancelled, Hep Bs Antigen Nonreactive, Hep Bs Antibody Nonreactive, Hepatitis C Antibody Nonreactive, N.gonorrhoeae DNA (JULISSA) Cancelled, Toxoplasma IgG Ab < 3.0, Toxoplasma gondii IgM < 3.0, Toxoplasma Comment Comment 11/08/24 04:19: WBC 5.3, RBC 2.72 L, Hgb 8.2 L, Hct 24.6 L, MCV 90.4, MCH 30.1, MCHC 33.3, RDW Std Deviation 52.0 H, RDW Coeff of Deb 15.7 H, Plt Count 125 L, MPV 10.7, Immature Gran % (Auto) 0.800, Neut % (Auto) 89.7 H, Lymph % (Auto) 5.5 L, Roosevelt % (Auto) 4.0, Eos % (Auto) 0.0, Baso % (Auto) 0.0, Absolute Neuts (auto) 4.7, Absolute Lymphs (auto) 0.29 L, Nucleated RBC % 0, Sodium 138, Potassium 3.7, Chloride 109 H, Carbon Dioxide 16.8 L, Anion Gap 12, BUN 15, Creatinine 0.66 L, Estim Creat Clear Calc 90.53, Est GFR (MDRD) Non-Af 115, BUN/Creatinine Ratio 22.5 H, Glucose 163 H, Calcium 9.1, Triglycerides 279 H, Cholesterol 177, LDL Cholesterol, Calc 99, VLDL Cholesterol 56 H, HDL [id number] L, Cholesterol/HDL Ratio 7.94 Micro: Microbiology 11/07/24 Unknown Urine, Clean Catch Chlamydia/Neisseria (PCR) - Final 11/07/24 11:21 Nasal Secretion MRSA (PCR) - Final 11/06/24 17:54 Mucosa - Nasopharyngeal Respiratory Panel (PCR) - Final 11/06/24 Unknown Urine, Random Legionella Antigen - Final 11/06/24 Unknown Urine, Random Streptococcus pneumoniae Antigen (M - Final 11/06/24 11:49 Mucosa - Nose SARS-CoV-2, Influenza & RSV (PCR) - Final Physical Exam Const alert and no apparent distress HEENT head/scalp atraumatic and moist oral mucous membranes Resp normal respiratory effort, no retractions, no use of accessory muscles and clear to auscultation bilaterally Cardio regular rate, regular rhythm, S1 normal heart sound and S2 normal heart sound GI normal to inspection, nondistended, normoactive bowel sounds, soft to palpation, non-tender and non-distended Extremity normal to inspection and full ROM Assessment & Plan Assessment/Plan (1) Bilateral interstitial pneumonia: PLAN: Diffuse bilaterally. Unclear type. Given the +HIV test, concern for Pneumocystis jiroveci infection. On vancomycin, clindamycin, fluconazole. Methylpred Methylpred, BDs, respiratory panel Blood culture pending autoimmune work ordered DW Dr. Cardona, plan for endoscopy. (2) HIV (human immunodeficiency virus infection): PLAN: Concern for active infection, cannot rule out the possibility of AIDS at this time. ID consulted. CD4, viral load pending PLAN: Plan VTE prophylaxis: LMWH. Charges/Coding Visit Charges Inpatient E&M: 19000 Subs Hosp L2 11/08/24 6128 Cosigner Signature (if applicable): CC: ~ Signed [facility]06-06-2025 Consult note Author Steven Kiran [facility] Note Date/Time November 08, 2024 12:17 pm [facility] Medical Records Department [address] [place] [address] Anesthesia Postop Eval II 11/08/24 1217 MR#: [id number] Acct: [id number] Name: ALMA DELIA DOW Rep #:[id number] : 1985 38 From: Steven Kiran MD PCP: Care Physician,No Primary Status :ADM IN Y Race: C Location: [place] [address] 0-1 Anesthesia Postop Eval I Sum Postop Eval Completion status Anesthesia document: Postop Eval 1 completed: Yes Anesthesia Postop Eval I Summary Anesthesia Postop Eval I Summary: Anesthesia Postop Eval I: Assessment Summary Airway patent No 11/08/24 11:18 DATA MIGRATION LEAD.SOBR Spontaneous unlabored No 11/08/24 11:18 DATA MIGRATION LEAD.SOBR respirations Mental status Asleep 11/08/24 11:18 DATA MIGRATION LEAD.SOBR nausea No 11/08/24 11:18 DATA MIGRATION LEAD.SOBR Vomiting No 11/08/24 11:18 DATA MIGRATION LEAD.SOBR Anesthesia Postop Eval I: Fluid Summary Crystalloid volume administer 500 11/08/24 11:18 DATA MIGRATION LEAD.SOBR (ml) Colloids volume administered ( ml) Blood Product volume administered (ml) Total IV fluid infused 500 11/08/24 11:18 DATA MIGRATION LEAD.SOBR Anesthesia Postop Eval I: Summary Notes Anesthesia Complication No 11/08/24 11:18 DATA MIGRATION LEAD.SOBR Anesthesia Complication Comment: Post-operative progress note Anesthesia: Postop Eval II Evaluation Mental status: Awake Pain Level: 1 nausea: No Vomiting: No 11/08/24 1217 <Electronically signed by Steven Kiran MD > Date _ Steven Kiran MD Cosigner Signature: Date CC: ~ Signed [facility] Work Phone: 1(589) 369-371206-06-2025 Consult note Author Narendra Sandoval [facility] Note Date/Time November 08, 2024 11:18 am [facility] Medical Records Department [address] [place] [address] [place] [address] Anesthesia Postop Eval I 11/08/24 1117 MR#: [id number] Acct: [id number] Name: ALMA DELIA DOW Rep #:[id number] : 1985 38 From: Narendra BAUTISTA PCP: Care Physician,No Primary Status :ADM IN Y Race: C Location: [place] [address] 0-1 Anesthesia: Postop Eval I Current Vital Signs Temperature: 97.1 F Pulse Rate: 66 Blood Pressure: 104/73 Respiratory Rate: 16 Pulse Ox: 100 Oxygen Delivery Method: Non-Rebreather Oxygen Flow Rate (L/min): 10 Assessment Airway patent: No Spontaneous unlabored respirations: No Mental status: Asleep nausea: No Vomiting: No Anesthesia Complication: No Fluid Hydration Crystalloid volume administer (ml): 500 Total IV fluid infused: 500 Progress Note Anesthesia document: Postop Eval 1 completed: Yes 11/08/24 1118 <Electronically signed by Narendra Sandoval CRNA> Date _ Narendra Sandoval CRNA Cosigner Signature: Date CC: ~ Signed [facility] Work Phone: 1(827) 288-736706-06-2025 Progress note Author Rangel Cardona [facility] Note Date/Time November 08, 2024 11:16 am [facility] Medical Records Department [address] [place] [address] Progress Note - Brush Stainer 11/08/24 0942 MR#: [id number] Acct: [id number] Name: ALMA DELIA DOW Rep #:[id number] : 1985 38 From: Rangel Brendan HOOKER PCP: Care Physician,No Primary Status :ADM IN Location: [place] [address] Assessment & Plan Assessment/Plan (1) HIV (human immunodeficiency virus infection): (2) Hypoxia: PLAN: Plan RECOMMENDATIONS: 1. Supplemental oxygen, if needed, to maintain saturations at or above 90%. 2. Continue empiric antimicrobials and steroids, per ID recommendations. 3. Given positive HIV screen, will proceed with bronchoscopy later this morning, given concern for opportunistic infections. IMPRESSIONS: 1. Shortness of breath and hypoxemia Initially felt to be multifocal pneumonia. However, the patient subsequently screened positive for HIV. This would raise the concern for an opportunistic infection. Accordingly, antimicrobial therapy will be deferred to infectious diseases. Will plan to proceed with bronchoscopy with BAL later this morning. Continue supplemental oxygen, if needed, to maintain saturations at or above 90%. Will send BAL for AFB, fungal and bacterial cultures along with PCP stain. 2. Chronic tobacco dependency Complicates care, management, recovery and prognosis. Smoking cessation is advisable. This note was generated with [employer] dictation software. It may contain incorrectwords, spelling, and punctuation that were not noted in checking the note beforesigning. Subjective Subjective The patient was seen and examined at the bedside this morning. Events from the last 24 hours have been reviewed. The patient is clinically stable with no overnight events reported. White blood cell count remains normal. Hemoglobin and platelet count are stable. Creatinine is within normal limits. There are plans to proceed with bronchoscopy with BAL later this morning. Objective Data Objective Data The patient's most recent lab work, culture data and imaging studies have all been personally reviewed. Vital Signs: Vital Signs Temp Pulse Resp BP Pulse Ox O2 Del Method O2 Flow Rate 98.2 F 87 18 116/78 99 Nasal Cannula 1 11/07/24 15:07 11/07/24 15:07 11/07/24 15:07 11/07/24 15:07 11/07/24 15:07 11/07/24 18:00 11/07/24 18:00 Oxygen Flow Rate (L/min) 1 Oxygen Delivery Method Nasal Cannula Weight: 123 lb 0.287 oz Body Mass Index (BMI) 24.0 Intake & Output: Intake and Output for Last 24 Hours 11/06/24 11/07/24 11/08/24 23:59 23:59 23:59 Intake Total 2150 / 2150 3660 / 3660 150 / 150 Output Total 500 / 500 Balance 1650 / 1650 3660 / 3660 150 / 150 Medical Nutrition Assessment Dietitian: Malnutrition Criteria Met Start: 11/07/24 10:31 Freq: Status: Active Protocol: Document 11/07/24 11:07 SB (Rec: 11/07/24 11:08 SB [id number]) Nutrition Malnutrition Evidence of Yes Malnutrition Exists Malnutrition (severe Chronic ): Evidenced By Suboptimal Energy Intake (Severe),Weight Loss (Severe) Clinical Problem Chronic Disease or Condition Related Malnutrition Etiology severe related to inadequate oral intake Signs/Symptoms as evidenced by PO meeting <75% of estimated nutrition needs x 4 months and 18% weight loss x 6 months. Status Active Problem Recommendation Dietitian Continue regular diet. Recommendations/ Pt denied ONS at this time, will ask again at time of Changes follow up if PO is still poor. Will order orange/red Gatorade per pt request. Will monitor weight trends. Lab / Micro Data Attestation: I reviewed the patient's lab results. 11/08/24 04:19 11/08/24 04:19 Labs: Laboratory Results - last 24 hr 11/07/24 10:30: Lactate Dehydrogenase 599 H, Syphilis Total Ab Nonreactive, Chlamydia DNA (JULISSA) Cancelled, Hep Bs Antigen Nonreactive, Hep Bs Antibody Nonreactive, Hepatitis C Antibody Nonreactive, N.gonorrhoeae DNA (JULISSA) Cancelled, Toxoplasma IgG Ab < 3.0, Toxoplasma gondii IgM < 3.0, Toxoplasma Comment Comment 11/08/24 04:19: WBC 5.3, RBC 2.72 L, Hgb 8.2 L, Hct 24.6 L, MCV 90.4, MCH 30.1, MCHC 33.3, RDW Std Deviation 52.0 H, RDW Coeff of Deb 15.7 H, Plt Count 125 L, MPV 10.7, Immature Gran % (Auto) 0.800, Neut % (Auto) 89.7 H, Lymph % (Auto) 5.5L, Roosevelt % (Auto) 4.0, Eos % (Auto) 0.0, Baso % (Auto) 0.0, Absolute Neuts (auto)4.7, Absolute Lymphs (auto) 0.29 L, Nucleated RBC % 0, Sodium 138, Potassium 3.7, Chloride 109 H, Carbon Dioxide 16.8 L, Anion Gap 12, BUN 15, Creatinine 0.66 L, Estim Creat Clear Calc 90.53, Est GFR (MDRD) Non-Af 115, BUN/Creatinine Ratio 22.5 H, Glucose 163 H, Calcium 9.1, Triglycerides 279 H, Cholesterol 177, LDL Cholesterol, Calc 99, VLDL Cholesterol 56 H, HDL Cholesterol 22 L, Cholesterol/HDL Ratio 7.94 Micro: Microbiology 11/07/24 Unknown Urine, Clean Catch Chlamydia/Neisseria (PCR) - Final 11/07/24 11:21 Nasal Secretion MRSA (PCR) - Final 11/06/24 17:54 Mucosa - Nasopharyngeal Respiratory Panel (PCR) - Final 11/06/24 Unknown Urine, Random Legionella Antigen - Final 11/06/24 Unknown Urine, Random Streptococcus pneumoniae Antigen (M - Final 11/06/24 11:49 Mucosa - Nose SARS-CoV-2, Influenza & RSV (PCR) - Final Physical Exam Const alert, oriented x3 and no apparent distress General Appearance: cooperative HEENT normocephalic, head/scalp atraumatic and moist oral mucous membranes Eyes PERRL, EOMs intact bilaterally and conjunctivae normal Neck supple General: trachea midline Chest inspection of chest normal Resp normal respiratory effort Auscultation: rales Cardio regular rate and regular rhythm GI normal to inspection, nondistended, normoactive bowel sounds Extremity no clubbing, cyanosis or edema Skin no rashes or lesions noted Neuro CN's II-XII intact bilaterally, moves all extremities and no focal motor deficits Psych cooperative and affect normal Charges/Coding Visit Charges Inpatient E&M: 97026 Subs Hosp L2 11/08/24 1116 <Electronically signed by Rangel Cardona DO> Cosigner Signature (if applicable): CC: ~ Signed [facility] Work Phone: [phone] 319-633706-06-2025 Consult note [facility] Medical Records Department [address] [place] [address] Pharmacokinetic/Renal -Consult 11/06/24 2301 MR#: [id number] Acct: [id number] Name: ALMA DELIA DWO Rep #:[id number] : 1985 38 From: Pb Michaels PCP: Care Physician,No Primary Status :ADM IN Location: [place] [address] Consult Antibiotic Management Pharmacy has been consulted to manage selected antibiotic: Vancomycin Type of Intervention Type of Consult: New start Suspected Infection Suspected Infection: Pneumonia Labs Labs: Sodium 135 mmol/L (133-145) 11/06/24 11:49 Potassium 2.8 mmol/L (3.3-5.1) L 11/06/24 11:49 Chloride 100 mmol/L (98-108) 11/06/24 11:49 Carbon Dioxide 21.8 mmol/L (21.0-32.0) 11/06/24 11:49 Anion Gap 13 (5-15) 11/06/24 11:49 BUN 13 mg/dL (4-19) 11/06/24 11:49 Creatinine 0.80 mg/dL (0.70-1.20) 11/06/24 11:49 Est GFR (MDRD) Non-Af 97 (>60) 11/06/24 11:49 BUN/Creatinine Ratio 16.6 RATIO (10-20) 11/06/24 11:49 Glucose 105 mg/dL (70-99) H 11/06/24 11:49 Microbiology Microbiology: Microbiology 11/06/24 17:54 Mucosa - Nasopharyngeal Respiratory Panel (PCR) - Final 11/06/24 Unknown Urine, Random Legionella Antigen - Final 11/06/24 Unknown Urine, Random Streptococcus pneumoniae Antigen (M - Final 11/06/24 11:49 Mucosa - Nose SARS-CoV-2, Influenza & RSV (PCR) - Final Dosing Weight Weight used for dosin.8 kg Estimated Creatinine Clearance Estimated Creatinine Clearance: 68 Goal Trough Goal Trough: 15-20 mcg/mL Pharmacy Plan for Drug Dosing Pharmacy Plan for Drug Dosing: Pharmacy Service will continue to monitor and adjust dosing as required. Follow-Up Labs Follow-Up Labs: Trough: Vancomycin Date/Time Labs Ordered Labs to be done on [date and time ordered]: 11/08/24 @0930 11/06/24 2302 ds> Date _ Pb Michaels 11/08/24 1303 O> Cosigner Signature (if applicable): Date Shayy Dodson DO CC: ~ Signed [facility]06-06-2025 Consult note [facility] Medical Records Department [address] [place] [address] Anesthesia Postop Eval II 11/08/24 1217 MR#: [id number] Acct: [id number] Name: ALMA DELIA DOW Rep #:[id number] : 1985 38 From: Steven Kiran MD PCP: Care Physician,No Primary Status :ADM IN Y Race: C Location: [place] [address] 0-1 Anesthesia Postop Eval I Sum Postop Eval Completion status Anesthesia document: Postop Eval 1 completed: Yes Anesthesia Postop Eval I Summary Anesthesia Postop Eval I Summary: Anesthesia Postop Eval I: Assessment Summary Airway patent No 11/08/24 11:18 DATA MIGRATION LEAD.SOBR Spontaneous unlabored No 11/08/24 11:18 DATA MIGRATION LEAD.SOBR respirations Mental status Asleep 11/08/24 11:18 DATA MIGRATION LEAD.SOBR nausea No 11/08/24 11:18 DATA MIGRATION LEAD.SOBR Vomiting No 11/08/24 11:18 DATA MIGRATION LEAD.SOBR Anesthesia Postop Eval I: Fluid Summary Crystalloid volume administer 500 11/08/24 11:18 DATA MIGRATION LEAD.SOBR (ml) Colloids volume administered ( ml) Blood Product volume administered (ml) Total IV fluid infused 500 11/08/24 11:18 DATA MIGRATION LEAD.SOBR Anesthesia Postop Eval I: Summary Notes Anesthesia Complication No 11/08/24 11:18 DATA MIGRATION LEAD.SOBR Anesthesia Complication Comment: Post-operative progress note Anesthesia: Postop Eval II Evaluation Mental status: Awake Pain Level: 1 nausea: No Vomiting: No 11/08/24 1217 > Date _ Steven Kiran MD Cosigner Signature: Date CC: ~ Signed [facility]06-06-2025 Consult note Author Steven richelle [facility] Note Date/Time November 08, 2024 10:11 am [facility] Medical Records Department [address] [place] [address] Pre-Anesthesia Evaluation 11/08/24 1009 MR#: [id number] Acct: [id number] Name: ALMA DELIA DOW Rep #:[id number] : 1985 38 From: Steven Kiran MD PCP: Care Physician,No Primary Status :ADM IN Y Race: C Location: [place] [address] 0-1 ASA Classification* ASA Classification ASA Classification: 3 Assessment & Plan Anesthesia* Anesthesia Assessment Anesthesia Assessment: Discussed sedation and/or anesthesia options, risks, benefits, and alternatives with patient/parents/legal guardian/POA. Questions invited. The patient/parents/legal guardian/POA seems to understand and agrees to proceedwith anesthesia plan. Reviewed the physical assessment, medical history, allergy history and patient home medications list prior to surgery/procedure/anesthetic and documented any changes. Performed airway and anesthesia risk assessments. Anesthesia Type Anesthesia Type: MAC (hiv PRECAUTIONS) Anesthesia Focused Assessment* Temperature: 97.5 F Pulse Rate: 71 Blood Pressure: 117/84 Respiratory Rate: 16 Pulse Ox: 96 Oxygen Flow Rate (L/min): 1 Airway Assessment Mouth opens: >3 cm Mallampati Score: II Focused Labs Anesthesia Preop lab: CBC WBC 5.3 K/mm3 (4.4-11.0) 11/08/24 04:19 11/08/24 RBC 2.72 M/mm3 (4.2-5.4) L 11/08/24 04:19 11/08/24 Hgb 8.2 g/dL (12.0-15.0) L 11/08/24 04:19 11/08/24 Hct 24.6 % (37-47) L 11/08/24 04:19 11/08/24 Plt Count 125 K/mm3 (150-450) L 11/08/24 04:19 11/08/24 CHEMISTRY Potassium 3.7 mmol/L (3.3-5.1) 11/08/24 04:19 11/08/24 Sodium 138 mmol/L (133-145) 11/08/24 04:19 11/08/24 Magnesium 1.7 mg/dL (1.5-2.2) 11/07/24 04:55 11/07/24 Phosphorus 4.0 mg/dL (2.7-4.5) 11/07/24 04:55 11/07/24 BUN 15 mg/dL (4-19) 11/08/24 04:19 11/08/24 Creatinine 0.66 mg/dL (0.70-1.20) L 11/08/24 04:19 Glucose 163 mg/dL (70-99) H 11/08/24 04:19 11/08/24 TSH 0.34 uIU/mL (0.358-3.74) L 12/28/17 12:30 12/04 11/20 COAG PT 12.9 SECONDS (11.7-14.9) 12/31/18 14:35 Urine Test Negative Negative 11/06/24 23:59 11/06/24 Pre-Assessment Diagnosis/Proposed Procedure Planned Operative Procedure(s): Bronchoscopy with washings Anesthesia History Anesthesia History - machine stone polisher: Anesthesia History - machine stone polisher Hx Hospitalization No 07/03/23 08:44 Any Problems With Anesthesia No 07/03/23 08:44 Cholinesterase deficiency No 07/03/23 08:44 You/Your Family Experience No 07/03/23 08:44 fever (hyperthermia) with Relationship Recent Exposure to Contagious No 07/03/23 08:44 Disease Does patient have nerve No 07/03/23 08:44 stimulator Patient instructed to have device shut off --Does patient have Pacemaker or ICD? When Was Last Pacemaker Check QUESTION #4 FULL TEXT: You/Your Family Experience fever (hyperthermia) with Anesthesia Last Oral Intake Last Oral intake: Last Oral Intake NPO since Meds taken in AM with sips of water? Meds patient instructed to take am of surgery PONV PONV - machine stone polisher: PONV - machine stone polisher Female HX of Motion Sickness HX of N/V After Surgery Non-Smoker Duration of Surgery greater than 60 minutes Number of Risk Factors PONV Score Height & Weight Height & Weight: Anesthesia: Height & Weight Height 5 ft 11/07/24 10:17 Weight: 55.8 kg 11/07/24 10:17 Body Mass Index (BMI) 24.0 11/06/24 16:46 Respiratory Assessment Respiratory Assessment - machine stone polisher: Respiratory Tract Infection Hx - machine stone polisher Hx Respiratory Tract Infection No 07/03/23 08:44 STOP Sleep Apnea STOP Sleep Apnea - machine stone polisher: STOP Sleep Apnea - machine stone polisher Hx Hypertension No 11/06/24 16:46 Hx Sleep Apnea No 11/06/24 16:46 CPAP BIPAP Do you snore loudly (louder No 11/06/24 16:46 than talking or can be heard Do you often feel tired/ No 11/06/24 16:46 fatigued/ sleepy during daytime? Has anyone observed you stop No 11/06/24 16:46 breathing during sleep? STOP Results Negative 11/06/24 16:46 QUESTION #5 FULL TEXT : Do you snore loudly (louder than talking or can be heard through closed doors)? 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 Specify any problems Hx of Preganancy in last 3 No 11/06/24 16:46 Months Nurse Filling Out Transfusion [email or web address] 11/06/24 16:46 & Questions: Date: 11/06/24 11/06/24 16:46 Time: 17:09 11/06/24 16:46 Patient unable to answer at this time (ie. confused, unrespo /Reproduction History /Reproductive History - machine stone polisher: /Reproductive Hx- machine stone polisher Hx Now Gestational Age (in weeks): EDC: Hx Hx Para Hx Section SAB No 11/06/24 11:15 Active Medications Active Medications: Current Medications Generic Name Dose Route Start Last Admin Trade Name Freq PRN Reason Stop Dose Admin Acetaminophen 650 mg 11/06/24 16:42 11/07/24 18:19 Acetaminophen 325 Mg Tablet PO 650 mg Q6H PRN PRN Administration Pain 1-10 Or Fever>100.7 Albuterol Sulfate 2.5 mg 11/06/24 16:42 Albuterol 2.5 Mg/3 Ml Vial.Neb. INHALATION Q2H PRN PRN SOB &/OR WHEEZING Albuterol/Ipratropium 3 ml 11/07/24 23:03 Ipratropium/Albuterol Sulfate 3 Ml Ampul.Neb INHALATION Q4H PRN PRN SHORTNESS OF BREATH Enoxaparin Sodium 40 mg 11/07/24 10:00 11/07/24 10:55 Enoxaparin 40 Mg/0.4 Ml Syringe SC 40 mg DAILY SHANIA Administration Fluconazole 100 mg 11/08/24 10:00 Fluconazole 100 Mg Tablet PO DAILY SHANIA Guaifenesin 1,200 mg 11/06/24 22:00 11/07/24 20:57 Guaifenesin 1,200 Mg Tablet PO 1,200 mg BID SHANIA Administration Sodium Chloride 250 mls @ 15 mls/hr 11/06/24 17:03 IV .[id number] PRN Saline Flush Sodium Chloride 250 mls @ 15 mls/hr 11/06/24 17:03 IV .[id number] PRN Additional IVPB Infusion Vancomycin IV-PHARMACY TO DOSE 500 mls @ 250 mls/hr 11/06/24 20:03 1 each/ Sodium Chloride IV PRN PRN Rx to Dose Protocol Cefepime HCl 2 gm/ Sodium 100 mls @ 200 mls/hr 11/07/24 09:55 11/08/24 06:35 Chloride IV Infused Q8 SHANIA Infusion Clindamycin Phosphate 600 mg in 50 mls @ 100 mls/hr 11/07/24 14:00 11/08/24 06:35 Cleocin IV Infused Q8 SHANIA Infusion Vancomycin HCl 1,000 mg in 200 mls @ 200 mls/hr 11/08/24 10:30 Vancomycin IV Q12H SHANIA Ibuprofen 600 mg 11/06/24 21:10 11/07/24 19:58 Ibuprofen 600 Mg Tablet PO 600 mg Q6H PRN PRN Administration Pain 1-10 or Fever Lorazepam 1 mg 11/07/24 18:10 11/08/24 03:52 Lorazepam 1 Mg Tablet PO 1 mg Q8H PRN PRN Administration ANXIETY Methylprednisolone 40 mg 11/06/24 22:00 11/08/24 06:00 Methylprednisolone 40 Mg/Ml Vial IV 40 mg Q8 SHANIA Administration Nicotine 21 mg 11/07/24 10:00 11/07/24 10:55 Nicotine 21 Mg Patch TD 21 mg DAILY SHANIA Administration Non-Formulary Medication 30 mg 11/07/24 11:15 Primaquine PO DAILY SHANIA Nystatin 500,000 unit 11/06/24 22:00 11/07/24 21:11 Nystatin 500,000 Unit/5 Ml Udc PO 500,000 unit 4X/DAY SHANIA Administration Ondansetron HCl 4 mg 11/06/24 16:42 11/08/24 08:49 Ondansetron 4 Mg/2 Ml Vial IV 4 mg Q8H PRN PRN Administration NAUSEA/VOMITING Senna/Docusate Sodium 2 tablet 11/06/24 16:42 Senna/Docusate Sodium 1 Tablet PO BID PRN PRN Constipation Sodium Chloride 10 - 40 ml 11/06/24 17:03 11/08/24 08:49 0.9% Saline Lock 10 Ml Syringe IV 10 ml UD PRN Administration SALINE FLUSH Vancomycin Protocol 1 lab 11/08/24 08:30 11/08/24 08:52 Vancomycin Trough/Random Due 11/08/24 10:30 1 lab DAILY SHANIA Administration Vancomycin Protocol 1 lab 11/09/24 21:00 Vancomycin Trough/Random Due 11/09/24 23:00 DAILY SHANIA PFSH Medical History Anemia Migraine headache Gastric reflux Hoarseness Hx of sepsis Smoker Abnormal results of thyroid function studies Malaise and fatigue Unspecified voice and resonance disorder Hair loss Insomnia Home Medications ?Medication ?Instructions ?Recorded ?Last Taken ?Type NK 11/06/24 Unknown History Allergy/AdvReac Type Severity [...] physical activity do you participate in: other Review of Systems (Anesthesia) ROS Narrative System reviewed and no additional complaints, except as documented. 11/08/24 1011 <Electronically signed by Steven Kiran MD > Date _ Steven Kiran MD Cosigner Signature: Date CC: ~ Signed [facility] Work Phone: 1([phone]) 481-556606-06-2025 Consult note Author Hattie Ramos [facility] Note Date/Time November 08, 2024 9:56a [facility] Medical Records Department [address] [place] [address] Pharmacokinetic/Renal -Consult 11/08/24 0953 MR#: [id number] Acct: [id number] Name: ALMA DELIA DOW Rep #:[id number] : 1985 38 From: Hattie Acevedo PCP: Care Physician,No Primary Status :ADM IN Y Location: [place] [address] Consult Antibiotic Management Pharmacy has been consulted to manage selected antibiotic: Vancomycin Type of Intervention Type of Consult: Follow-up Suspected Infection Suspected Infection: Pneumonia Prior Doses of Antibiotics Prior Doses of Antibiotics Received/Current Regimen: Vancomycin 750mg every 12 hours given 11/07/24 @ 1054,11/07/24 @ 2218 Labs Labs: Sodium 138 mmol/L (133-145) 11/08/24 04:19 Potassium 3.7 mmol/L (3.3-5.1) 11/08/24 04:19 Chloride 109 mmol/L (98-108) H 11/08/24 04:19 Carbon Dioxide 16.8 mmol/L (21.0-32.0) L 11/08/24 04:19 Anion Gap 12 (5-15) 11/08/24 04:19 BUN 15 mg/dL (4-19) 11/08/24 04:19 Creatinine 0.66 mg/dL (0.70-1.20) L 11/08/24 04:19 Est GFR (MDRD) Non-Af 115 (>60) 11/08/24 04:19 BUN/Creatinine Ratio 22.5 RATIO (10-20) H 11/08/24 04:19 Glucose 163 mg/dL (70-99) H 11/08/24 04:19 Vancomycin Trough 13.0 ug/mL (5.0-15.0) 11/08/24 09:10 Microbiology Microbiology: Microbiology 11/07/24 Unknown Urine, Clean Catch Chlamydia/Neisseria (PCR) - Final 11/07/24 11:21 Nasal Secretion MRSA (PCR) - Final 11/06/24 17:54 Mucosa - Nasopharyngeal Respiratory Panel (PCR) - Final 11/06/24 Unknown Urine, Random Legionella Antigen - Final 11/06/24 Unknown Urine, Random Streptococcus pneumoniae Antigen (M - Final 11/06/24 11:49 Mucosa - Nose SARS-CoV-2, Influenza & RSV (PCR) - Final Dosing Weight Weight used for dosin kg Estimated Creatinine Clearance Estimated Creatinine Clearance: 91 Goal Trough Goal Trough: 15-20 mcg/mL Pharmacy Plan for Drug Dosing Pharmacy Plan for Drug Dosing: New dosage due to trough level of 13. Vancomycin 1000mg every 12 hours Pharmacy Service will continue to monitor and adjust dosing as required. Follow-Up Labs Follow-Up Labs: Trough: Vancomycin Date/Time Labs Ordered Labs to be done on [date and time ordered]: 11/09/24 @ 2200 11/08/24 0956 <Electronically signed by Hattie Ramos> Date _ Hattie Ramos Cosigner Signature (if applicable): Date CC: ~ Signed [facility] Work Phone: 1(354) 203-761206-06-2025 Consult note [facility] Medical Records Department [address] [place] [address] Anesthesia Postop Eval I 11/08/24 1117 MR#: [id number] Acct: [id number] Name: GRICELDARAMONEALMA DELIA Wyman Rep #:[id number] : 1985 38 From: Narendra BAUTISTA PCP: Care Physician,No Primary Status :ADM IN Y Race: C Location: [place] [address] 0-1 Anesthesia: Postop Eval I Current Vital Signs Temperature: 97.1 F Pulse Rate: 66 Blood Pressure: 104/73 Respiratory Rate: 16 Pulse Ox: 100 Oxygen Delivery Method: Non-Rebreather Oxygen Flow Rate (L/min): 10 Assessment Airway patent: No Spontaneous unlabored respirations: No Mental status: Asleep nausea: No Vomiting: No Anesthesia Complication: No Fluid Hydration Crystalloid volume administer (ml): 500 Total IV fluid infused: 500 Progress Note Anesthesia document: Postop Eval 1 completed: Yes 11/08/24 1118 DATA MIGRATION LEAD> Date _ Narendra MoralesCannon DATA MIGRATION LEAD Cosigner Signature: Date CC: ~ Signed [facility]06-06-2025 Progress note [facility] Medical Records Department [address] [place] [address] Progress Note - Brush Stainer 11/08/24 0942 MR#: [id number] Acct: [id number] Name: ALMA DELIA DOW Rep #:[id number] : 1985 38 From: Rangel Cardona DO PCP: Care Physician,No Primary Status :ADM IN Location: [place] [address] Assessment & Plan Assessment/Plan (1) HIV (human immunodeficiency virus infection): (2) Hypoxia: PLAN: Plan RECOMMENDATIONS: 1. Supplemental oxygen, if needed, to maintain saturations at or above 90%. 2. Continue empiric antimicrobials and steroids, per ID recommendations. 3. Given positive HIV screen, will proceed with bronchoscopy later this morning, given concern for opportunistic infections. IMPRESSIONS: 1. Shortness of breath and hypoxemia Initially felt to be multifocal pneumonia. However, the patient subsequently screened positive for HIV. This would raise the concern for an opportunistic infection. Accordingly, antimicrobial therapywill be deferred to infectious diseases. Will plan to proceed with bronchoscopy with BAL later thismorning. Continue supplemental oxygen, if needed, to maintain saturations at or above 90%. Will send BAL for AFB, fungal and bacterial cultures along with PCP stain. 2. Chronic tobacco dependency Complicates care, management, recovery and prognosis. Smoking cessation is advisable. This note was generated with [employer] software. It may contain incorrectwords, spelling, and punctuation that were not noted in checking the note beforesigning. Subjective Subjective The patient was seen and examined at the bedside this morning. Events from the last 24 hours have been reviewed. The patient is clinically stable with no overnight events reported. White blood cell count remains normal. Hemoglobin and platelet count are stable. Creatinine is within normal limits. There are plans to proceed with bronchoscopy with BAL later this morning. Objective Data Objective Data The patient's most recent lab work, culture data and imaging studies have all been personally reviewed. Vital Signs: Vital Signs Temp Pulse Resp BP Pulse Ox O2 Del Method O2 Flow Rate 98.2 F 87 18 116/78 99 Nasal Cannula 1 11/07/24 15:07 11/07/24 15:07 11/07/24 15:07 11/07/24 15:07 11/07/24 15:07 11/07/24 18:00 11/07/24 18:00 Oxygen Flow Rate (L/min) 1 Oxygen Delivery Method Nasal Cannula Weight: 123 lb 0.287 oz Body Mass Index (BMI) 24.0 Intake & Output: Intake and Output for Last 24 Hours 11/06/24 11/07/24 11/08/24 23:59 23:59 23:59 Intake Total 2150 / 2150 3660 / 3660 150 / 150 Output Total 500 / 500 Balance 1650 / 1650 3660 / 3660 150 / 150 Medical Nutrition Assessment Dietitian: Malnutrition Criteria Met Start: 11/07/24 10:31 Freq: Status: Active Protocol: Document 11/07/24 11:07 SB (Rec: 11/07/24 11:08 SB [id number]) Nutrition Malnutrition Evidence of Yes Malnutrition Exists Malnutrition (severe Chronic ): Evidenced By Suboptimal Energy Intake (Severe),Weight Loss (Severe) Clinical Problem Chronic Disease or Condition Related Malnutrition Etiology severe related to inadequate oral intake Signs/Symptoms as evidenced by PO meeting <75% of estimated nutrition needs x 4 months and 18% weight loss x 6 months. Status Active Problem Recommendation Dietitian Continue regular diet. Recommendations/ Pt denied ONS at this time, will ask again at time of Changes follow up if PO is still poor. Will order orange/red Gatorade per pt request. Will monitor weight trends. Lab / Micro Data Attestation: I reviewed the patient's lab results. 11/08/24 04:19 11/08/24 04:19 Labs: Laboratory Results - last 24 hr 11/07/24 10:30: Lactate Dehydrogenase 599 H, Syphilis Total Ab Nonreactive, Chlamydia DNA (JULISSA) Cancelled, Hep Bs Antigen Nonreactive, Hep Bs Antibody Nonreactive, Hepatitis C Antibody Nonreactive, N.gonorrhoeae DNA (JULISSA) Cancelled, Toxoplasma IgG Ab < 3.0, Toxoplasma gondii IgM < 3.0, Toxoplasma Comment Comment 11/08/24 04:19: WBC 5.3, RBC 2.72 L, Hgb 8.2 L, Hct 24.6 L, MCV 90.4, MCH 30.1, MCHC 33.3, RDW Std Deviation 52.0 H, RDW Coeff of Deb 15.7 H, Plt Count 125 L, MPV 10.7, Immature Gran % (Auto) 0.800, Neut % (Auto) 89.7 H, Lymph % (Auto) 5.5L, Roosevelt % (Auto) 4.0, Eos % (Auto) 0.0, Baso % (Auto) 0.0, Absolute Neuts (auto)4.7, Absolute Lymphs (auto) 0.29 L, Nucleated RBC % 0, Sodium 138, Potassium 3.7, Chloride 109 H, Carbon Dioxide 16.8 L, Anion Gap 12, BUN 15, Creatinine 0.66 L, Estim Creat Clear Calc 90.53, Est GFR (MDRD) Non-Af 115, BUN/Creatinine Ratio 22.5 H, Glucose 163 H, Calcium 9.1, Triglycerides 279 H, Cholesterol 177, LDL Cholesterol, Calc 99, VLDL Cholesterol 56 H, HDL Cholesterol 22 L, Cholesterol/HDL Ratio 7.94 Micro: Microbiology 11/07/24 Unknown Urine, Clean Catch Chlamydia/Neisseria (PCR) - Final 11/07/24 11:21 Nasal Secretion MRSA (PCR) - Final 11/06/24 17:54 Mucosa - Nasopharyngeal Respiratory Panel (PCR) - Final 11/06/24 Unknown Urine, Random Legionella Antigen - Final 11/06/24 Unknown Urine, Random Streptococcus pneumoniae Antigen (M - Final 11/06/24 11:49 Mucosa - Nose SARS-CoV-2, Influenza & RSV (PCR) - Final Physical Exam Const alert, oriented x3 and no apparent distress General Appearance: cooperative HEENT normocephalic, head/scalp atraumatic and moist oral mucous membranes Eyes PERRL, EOMs intact bilaterally and conjunctivae normal Neck supple General: trachea midline Chest inspection of chest normal Resp normal respiratory effort Auscultation: rales Cardio regular rate and regular rhythm GI normal to inspection, nondistended, normoactive bowel sounds Extremity no clubbing, cyanosis or edema Skin no rashes or lesions noted Neuro CN's II-XII intact bilaterally, moves all extremities and no focal motor deficits Psych cooperative and affect normal Charges/Coding Visit Charges Inpatient E&M: 59177 Subs Hosp L2 11/08/24 1116 Cosigner Signature (if applicable): CC: ~ Signed [facility]06-06-2025 Procedure note [facility] Medical Records Department [address] [place] [address] Bronchoscopy Report MR#: [id number] Acct: [id number] Name: ALMA DELIA DOW Rep #:[id number] : 1985 38 From: Rangel Cardona DO PCP: Care Physician,No Primary Status :ADM IN Patient Name: Alma Delia Dow Procedure Date: 11/08/2024 10:39 AM Date of : 1985 Age: 38 Procedure: Bronchoscopy Indications: HIV positive with bilateral infiltrates Providers: Rangel Cardona MD Medicines: See the Anesthesia note for documentation of the administered medications Complications: No immediate complications Procedure: Pre-Anesthesia Assessment: - A History and Physical has been performed. Patient meds and allergies have been reviewed. The risks and benefits of the procedure and the sedation options and risks were discussed with the patient. All questions were answered and informed consent was obtained. Patient identification and proposed procedure were verified prior to the procedure by the physician and the nurse in the procedure room. Mental Status Examination: alert and oriented. Airway Examination: normal oropharyngeal airway. Respiratory Examination: clear to auscultation. CV Examination: normal. ASA Grade Assessment: II - A patient with mild systemic disease. After reviewing the risks and benefits, the patient was deemed in satisfactory condition to undergo the procedure. The anesthesia plan was to use monitored anesthesia care (MAC). Immediately prior to administration of medications, the patient was re-assessed for adequacy to receive sedatives. The heart rate, respiratory rate, oxygen saturations, blood pressure, adequacy of pulmonary ventilation, and response to care were monitored throughout the procedure. The physical status of the patient was re-assessed after the procedure. After I obtained informed consent, the scope was passed under direct vision. Throughout the procedure, the patient's blood pressure, pulse, and oxygen saturations were monitored continuously. The bronchoscope was introduced through the mouth and advanced to the tracheobronchial tree. The procedure was accomplished without difficulty. The patient tolerated the procedure well. Findings: The oropharynx appears normal. The larynx appears normal. The vocal cords appear normal. The subglottic space is normal. The trachea is of normal caliber. The tawanda is sharp. The tracheobronchial tree was examined to at least the first subsegmental level. Bronchial mucosa and anatomy are normal; there are no endobronchial lesions, and no secretions. The bronchoscope was advanced until wedged at the desired location for bronchoalveolar lavage. BAL was performed in the right middle lobe of the lung and sent for cell count, bacterial culture, viral smears & culture, fungal & AFB analysis and cytology for immunocompromised host protocol. 60 mL of fluid were instilled. 20 mL were returned. The return was cloudy. There were no mucoid plugs in the return fluid. Impression: - HIV positive with bilateral infiltrates - The airway examination was normal. - Bronchoalveolar lavage was performed. Recommendation: - Await BAL results. Procedure Code(s): --- Professional --- 16929, Bronchoscopy, rigid or flexible, including fluoroscopic guidance, when performed; with bronchial alveolar lavage Diagnosis Code(s): --- Professional --- B20, Human immunodeficiency virus [HIV] disease R91.8, Other nonspecific abnormal finding of lung field CPT copyright 2021 [employer]. All rights reserved. The codes documented in this report are preliminary and upon medical record coder review may be revised to meet current compliance requirements. DO Rangel Cantrell MD 11/08/2024 11:13:51 AM This report has been signed electronically. Number of Addenda: 0 Note Initiated On: 11/08/2024 10:39 AM 11/08/24 1114 Date _ Rangel Thompsonignroosevelt Signature: Date (if indicated) CC: Dr. Rangel Cardona, DO; No Primary Care Physician ~ Date Dictated: 11/08/24 1039 Date Transcribed: Wallcovering Hanger: DB Signed [facility]06-06-2025 Consult note [facility] Medical Records Department [address] [place] [address] Pre-Anesthesia Evaluation 11/08/24 1009 MR#: [id number] Acct: [id number] Name: ALMA DELIA DOW Rep #:[id number] : 1985 38 From: Steven Kiran MD PCP: Care Physician,No Primary Status :ADM IN Y Race: C Location: [place] [address] 0-1 ASA Classification* ASA Classification ASA Classification: 3 Assessment & Plan Anesthesia* Anesthesia Assessment Anesthesia Assessment: Discussed sedation and/or anesthesia options, risks, benefits, and alternatives with patient/parents/legal guardian/POA. Questions invited. The patient/parents/legal guardian/POA seems to understand and agrees to proceedwith anesthesia plan. Reviewed the physical assessment, medical history, allergy history and patient home medications list prior to surgery/procedure/anesthetic and documented any changes. Performed airway and anesthesia risk assessments. Anesthesia Type Anesthesia Type: MAC (hiv PRECAUTIONS) Anesthesia Focused Assessment* Temperature: 97.5 F Pulse Rate: 71 Blood Pressure: 117/84 Respiratory Rate: 16 Pulse Ox: 96 Oxygen Flow Rate (L/min): 1 Airway Assessment Mouth opens: >3 cm Mallampati Score: II Focused Labs Anesthesia Preop lab: CBC WBC 5.3 K/mm3 (4.4-11.0) 11/08/24 04:11/08/24 RBC 2.72 M/mm3 (4.2-5.4) L 11/08/24 04:11/08/24 Hgb 8.2 g/dL (12.0-15.0) L 11/08/24 04:11/08/24 Hct 24.6 % (37-47) L 11/08/24 04:11/08/24 Plt Count 125 K/mm3 (150-450) L 11/08/24 04:25 CHEMISTRY Potassium 3.7 mmol/L (3.3-5.1) 11/08/24 04:19 11/08/24 Sodium 138 mmol/L (133-145) 11/08/24 04:19 11/08/24 Magnesium 1.7 mg/dL (1.5-2.2) 11/07/24 04:55 11/07/24 Phosphorus 4.0 mg/dL (2.7-4.5) 11/07/24 04:55 11/07/24 BUN 15 mg/dL (4-19) 11/08/24 04:19 11/08/24 Creatinine 0.66 mg/dL (0.70-1.20) L 11/08/24 04:19 Glucose 163 mg/dL (70-99) H 11/08/24 04:19 11/08/24 TSH 0.34 uIU/mL (0.358-3.74) L 12/28/17 12:30 0711/20 COAG PT 12.9 SECONDS (11.7-14.9) 12/31/18 14:35 Urine Test Negative Negative 11/06/24 23:59 11/06/24 Pre-Assessment Diagnosis/Proposed Procedure Planned Operative Procedure(s): Bronchoscopy with washings Anesthesia History Anesthesia History - machine stone polisher: Anesthesia History - machine stone polisher Hx Hospitalization No 07/03/23 08:44 Any Problems With Anesthesia No 07/03/23 08:44 Cholinesterase deficiency No 07/03/23 08:44 You/Your Family Experience No 07/03/23 08:44 fever (hyperthermia) with Relationship Recent Exposure to Contagious No 07/03/23 08:44 Disease Does patient have nerve No 07/03/23 08:44 stimulator Patient instructed to have device shut off --Does patient have Pacemaker or ICD? When Was Last Pacemaker Check QUESTION #4 FULL TEXT: You/Your Family Experience fever (hyperthermia) with Anesthesia Last Oral Intake Last Oral intake: Last Oral Intake NPO since Meds taken in AM with sips of water? Meds patient instructed to take am of surgery PONV PONV - machine stone polisher: PONV - machine stone polisher Female HX of Motion Sickness HX of N/V After Surgery Non-Smoker Duration of Surgery greater than 60 minutes Number of Risk Factors PONV Score Height & Weight Height & Weight: Anesthesia: Height & Weight Height 5 ft 11/07/24 10:17 Weight: 55.8 kg 11/07/24 10:17 Body Mass Index (BMI) 24.0 11/06/24 16:46 Respiratory Assessment Respiratory Assessment - machine stone polisher: Respiratory Tract Infection Hx - machine stone polisher Hx Respiratory Tract Infection No 07/03/23 08:44 STOP Sleep Apnea STOP Sleep Apnea - machine stone polisher: STOP Sleep Apnea - machine stone polisher Hx Hypertension No 11/06/24 16:46 Hx Sleep Apnea No 11/06/24 16:46 CPAP BIPAP Do you snore loudly (louder No 11/06/24 16:46 than talking or can be heard Do you often feel tired/ No 11/06/24 16:46 fatigued/ sleepy during daytime? Has anyone observed you stop No 11/06/24 16:46 breathing during sleep? STOP Results Negative 11/06/24 16:46 QUESTION #5 FULL TEXT : Do you snore loudly (louder than talking or can be heard through closeddoors)? 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 Specify any problems Hx of Preganancy in last 3 No 11/06/24 16:46 Months Nurse Filling Out Transfusion RVIZZO 11/06/24 16:46 & Questions: Date: 11/06/24 11/06/24 16:46 Time: 17:09 11/06/24 16:46 Patient unable to answer at this time (ie. confused, unrespo /Reproduction History /Reproductive History - machine stone polisher: /Reproductive Hx- machine stone polisher Hx Now Gestational Age (in weeks): EDC: Hx Hx Para Hx Section SAB No 11/06/24 11:15 Active Medications Active Medications: Current Medications Generic Name Dose Route Start Last Admin Trade Name Freq PRN Reason Stop Dose Admin Acetaminophen 650 mg 11/06/24 16:42 11/07/24 18:19 Acetaminophen 325 Mg Tablet PO 650 mg Q6H PRN PRN Administration Pain 1-10 Or Fever>100.7 Albuterol Sulfate 2.5 mg 11/06/24 16:42 Albuterol 2.5 Mg/3 Ml Vial.Neb. INHALATION Q2H PRN PRN SOB &/OR WHEEZING Albuterol/Ipratropium 3 ml 11/07/24 23:03 Ipratropium/Albuterol Sulfate 3 Ml Ampul.Neb INHALATION Q4H PRN PRN SHORTNESS OF BREATH Enoxaparin Sodium 40 mg 11/07/24 10:00 11/07/24 10:55 Enoxaparin 40 Mg/0.4 Ml Syringe SC 40 mg DAILY SHANIA Administration Fluconazole 100 mg 11/08/24 10:00 Fluconazole 100 Mg Tablet PO DAILY SHANIA Guaifenesin 1,200 mg 11/06/24 22:00 11/07/24 20:57 Guaifenesin 1,200 Mg Tablet PO 1,200 mg BID SHANIA Administration Sodium Chloride 250 mls @ 15 mls/hr 11/06/24 17:03 IV .[id number] PRN Saline Flush Sodium Chloride 250 mls @ 15 mls/hr 11/06/24 17:03 IV .[id number] PRN Additional IVPB Infusion Vancomycin IV-PHARMACY TO DOSE 500 mls @ 250 mls/hr 11/06/24 20:03 1 each/ Sodium Chloride IV PRN PRN Rx to Dose Protocol Cefepime HCl 2 gm/ Sodium 100 mls @ 200 mls/hr 11/07/24 09:55 11/08/24 06:35 Chloride IV Infused Q8 SHANIA Infusion Clindamycin Phosphate 600 mg in 50 mls @ 100 mls/hr 11/07/24 14:00 11/08/24 06:35 Cleocin IV Infused Q8 SHANIA Infusion Vancomycin HCl 1,000 mg in 200 mls @ 200 mls/hr 11/08/24 10:30 Vancomycin IV Q12H SHANIA Ibuprofen 600 mg 11/06/24 21:10 11/07/24 19:58 Ibuprofen 600 Mg Tablet PO 600 mg Q6H PRN PRN Administration Pain 1-10 or Fever Lorazepam 1 mg 11/07/24 18:10 11/08/24 03:52 Lorazepam 1 Mg Tablet PO 1 mg Q8H PRN PRN Administration ANXIETY Methylprednisolone 40 mg 11/06/24 22:00 11/08/24 06:00 Methylprednisolone 40 Mg/Ml Vial IV 40 mg Q8 SHANIA Administration Nicotine 21 mg 11/07/24 10:00 11/07/24 10:55 Nicotine 21 Mg Patch TD 21 mg DAILY SHANIA Administration Non-Formulary Medication 30 mg 11/07/24 11:15 Primaquine PO DAILY SHANIA Nystatin 500,000 unit 11/06/24 22:00 11/07/24 21:11 Nystatin 500,000 Unit/5 Ml Udc PO 500,000 unit 4X/DAY SHANIA Administration Ondansetron HCl 4 mg 11/06/24 16:42 11/08/24 08:49 Ondansetron 4 Mg/2 Ml Vial IV 4 mg Q8H PRN PRN Administration NAUSEA/VOMITING Senna/Docusate Sodium 2 tablet 11/06/24 16:42 Senna/Docusate Sodium 1 Tablet PO BID PRN PRN Constipation Sodium Chloride 10 - 40 ml 11/06/24 17:03 11/08/24 08:49 0.9% Saline Lock 10 Ml Syringe IV 10 ml UD PRN Administration SALINE FLUSH Vancomycin Protocol 1 lab 11/08/24 08:30 11/08/24 08:52 Vancomycin Trough/Random Due 11/08/24 10:30 1 lab DAILY SHANIA Administration Vancomycin Protocol 1 lab 11/09/24 21:00 Vancomycin Trough/Random Due 11/09/24 23:00 DAILY SHANIA PFSH Medical History Anemia Migraine headache Gastric reflux Hoarseness Hx of sepsis Smoker Abnormal results of thyroid function studies Malaise and fatigue Unspecified voice and resonance disorder Hair loss Insomnia Home Medications ?Medication ?Instructions ?Recorded ?Last Taken ?Type NK 11/06/24 Unknown History Allergy/AdvReac Type Severity [...] physical activity do you participate in: other Review of Systems (Anesthesia) ROS Narrative System reviewed and no additional complaints, except as documented. 11/08/24 1011 > Date _ Steven Kiran MD Cosigner Signature: Date CC: ~ Signed [facility]06-06-2025 Consult note [facility] Medical Records Department [address] [place] [address] Pharmacokinetic/Renal -Consult 11/08/24 0953 MR#: [id number] Acct: [id number] Name: POLLO DOWHENRY Wyman Rep #:[id number] : 1985 38 From: Hattie Acevedo PCP: Care Physician,No Primary Status :ADM IN Location: [place] [address] Consult Antibiotic Management Pharmacy has been consulted to manage selected antibiotic: Vancomycin Type of Intervention Type of Consult: Follow-up Suspected Infection Suspected Infection: Pneumonia Prior Doses of Antibiotics Prior Doses of Antibiotics Received/Current Regimen: Vancomycin 750mg every 12 hours given 11/07/24 @ 1054,11/07/24 @ 2218 Labs Labs: Sodium 138 mmol/L (133-145) 11/08/24 04:19 Potassium 3.7 mmol/L (3.3-5.1) 11/08/24 04:19 Chloride 109 mmol/L (98-108) H 11/08/24 04:19 Carbon Dioxide 16.8 mmol/L (21.0-32.0) L 11/08/24 04:19 Anion Gap 12 (5-15) 11/08/24 04:19 BUN 15 mg/dL (4-19) 11/08/24 04:19 Creatinine 0.66 mg/dL (0.70-1.20) L 11/08/24 04:19 Est GFR (MDRD) Non-Af 115 (>60) 11/08/24 04:19 BUN/Creatinine Ratio 22.5 RATIO (10-20) H 11/08/24 04:19 Glucose 163 mg/dL (70-99) H 11/08/24 04:19 Vancomycin Trough 13.0 ug/mL (5.0-15.0) 11/08/24 09:10 Microbiology Microbiology: Microbiology 11/07/24 Unknown Urine, Clean Catch Chlamydia/Neisseria (PCR) - Final 11/07/24 11:21 Nasal Secretion MRSA (PCR) - Final 11/06/24 17:54 Mucosa - Nasopharyngeal Respiratory Panel (PCR) - Final 11/06/24 Unknown Urine, Random Legionella Antigen - Final 11/06/24 Unknown Urine, Random Streptococcus pneumoniae Antigen (M - Final 11/06/24 11:49 Mucosa - Nose SARS-CoV-2, Influenza & RSV (PCR) - Final Dosing Weight Weight used for dosin kg Estimated Creatinine Clearance Estimated Creatinine Clearance: 91 Goal Trough Goal Trough: 15-20 mcg/mL Pharmacy Plan for Drug Dosing Pharmacy Plan for Drug Dosing: New dosage due to trough level of 13. Vancomycin 1000mg every 12 hours Pharmacy Service will continue to monitor and adjust dosing as required. Follow-Up Labs Follow-Up Labs: Trough: Vancomycin Date/Time Labs Ordered Labs to be done on [date and time ordered]: 11/09/24 @ 2200 11/08/24 0956 Rachel> Date _ Hattie Scott Signature (if applicable): Date CC: ~ Signed [facility]06-05-2025 Progress note Author Pb Adams [facility] Note Date/Time November 07, 2024 12:58 pm [facility] Medical Records Department [address] [place] [address] Progress Note - Hospitalist 11/07/24 0818 MR#: [id number] Acct: [id number] Name: ALMA DELIA DOW Rep #:[id number] : 1985 38 From: Pb Adams DO PCP: Care Physician,No Primary Status :ADM IN Location: [place] [address] Reason for Visit Reason for Visit: Diagnoses Anemia, unspecified (11/06/24) Hypokalemia (11/06/24) Hypotension, unspecified (11/06/24) Interstitial pulmonary disease, unspecified (11/06/24) Hypoxemia (11/06/24) Subjective Subjective Feeling much better. Had been ill for weeks. Denies IV drug abuse. Objective Data Objective Data Vital Signs: Vital Signs Temp Pulse Resp BP Pulse Ox O2 Del Method O2 Flow Rate 36.4 C L 78 20 H 96/66 94 Nasal Cannula 2 11/07/24 05:22 11/07/24 05:22 11/07/24 05:22 11/07/24 05:22 11/07/24 05:22 11/07/24 05:22 11/07/24 05:22 Oxygen Flow Rate (L/min) 2 Oxygen Delivery Method Nasal Cannula Weight: 55.8 kg Body Mass Index (BMI) 24.0 Intake & Output: Intake and Output for Last 24 Hours 11/05/24 11/06/24 11/07/24 23:59 23:59 23:59 Intake Total 2150 / 2150 530 / 530 Output Total 500 / 500 Balance 1650 / 1650 530 / 530 Lab / Micro Data 11/07/24 04:55 11/07/24 04:55 Labs: Laboratory Results - last 24 hr 11/06/24 11:49: WBC 5.1, RBC 3.08 L, Hgb 9.2 L, Hct 27.3 L, MCV 88.6, MCH 29.9, MCHC 33.7, RDW Std Deviation 50.0 H, RDW Coeff of Deb 15.5 H, Plt Count 155, MPV11.0, Immature Gran % (Auto) 0.400, Neut % (Auto) 90.1 H, Lymph % (Auto) 4.9 L, Roosevelt % (Auto) 3.4, Eos % (Auto) 1.0, Baso % (Auto) 0.2, Absolute Neuts (auto) 4.6, Absolute Lymphs (auto) 0.25 L, Nucleated RBC % 0, Sodium 135, Potassium 2.8L, Chloride 100, Carbon Dioxide 21.8, Anion Gap 13, BUN 13, Creatinine 0.80, Estim Creat Clear Calc 68.49, Est GFR (MDRD) Non-Af 97, BUN/Creatinine Ratio 16.6, Glucose 105 H, Lactic Acid < 1.0, Calcium 9.0, Total Bilirubin 0.45, AST 74 H, ALT 42 H, Alkaline Phosphatase 429 H, Lactate Dehydrogenase 467 H, NT pro BNP II 317, Total Protein 6.5, Albumin 3.2 L, Globulin 3.3, Albumin/Globulin Ratio 1.0, HIV 1&2 Antibody Reactive H 11/06/24 17:23: ESR 28, Retic Count 1.09, Immature Retic Fraction 9.90, Retic Hgb Equivalent 29.6 L, Iron 23 L, TIBC 221 L, Iron Saturation 10.4 L, Unsaturated IBC 198 L, Ferritin 1130 H, C-React Prot Ext Range 56.70 H, Procalcitonin 0.53 H, BLOSSOM-1 Antibody Cancelled, SS-A/Ro IgG Antibody Cancelled, SS-B/La IgG Antibody Cancelled, Sm (Olson) Antibody Cancelled, WORK FORCE ADVISOR Antibody Cancelled, Scl-70 Scleroderma Ab Cancelled, Double Strand DNA Ab Cancelled, Antichromatin Antibodies Cancelled, Centromere B Antibody Cancelled 11/06/24 18:26: ANCA Immunofluorescen Cancelled, c-ANCA Antibody Cancelled, Atypical p-ANCA Cancelled, p-ANCA Antibody Cancelled 11/06/24 18:31: Urine Color Straw, Urine Clarity Clear, Urine pH 6.5, Ur Specific Lincoln 1.010, Urine Protein 15 H, Urine Glucose (UA) Normal, Urine Ketones Negative, Urine Occult Blood Negative, Urine Nitrite Negative, Urine Bilirubin Negative, Urine Urobilinogen Normal, Ur Leukocyte Esterase Negative, Urine RBC 0-5 SEEN, Urine WBC 0-5 SEEN, Ur Squamous Epith Cells 0-5 SEEN, Urine Bacteria 0 SEEN, Urine Mucus 0 SEEN, Urine Opiates Screen NEGATIVE, U Buprenorphine Qual NEGATIVE, Ur Oxycodone Screen NEGATIVE, Urine Methadone Screen NEGATIVE, Urine Fentanyl Screen NEGATIVE, Ur Barbiturates Screen NEGATIVE, Ur Phencyclidine Scrn NEGATIVE, Ur Amphetamines Screen NEGATIVE, U Benzodiazepines Scrn NEGATIVE, Urine Cocaine Screen NEGATIVE, U Cannabinoids Screen NEGATIVE 11/06/24 22:22: MRSA (PCR) Negative 11/06/24 : Urine Test Negative 11/07/24 04:55: WBC 5.1, RBC 2.96 L, Hgb 8.9 L, Hct 26.8 L, MCV 90.5, MCH 30.1, MCHC 33.2, RDW Std Deviation 52.1 H, RDW Coeff of Deb 15.7 H, Plt Count 127 L, MPV 11.1, Immature Gran % (Auto) 0.400, Neut % (Auto) 93.7 H, Lymph % (Auto) 3.9L, Roosevelt % (Auto) 1.6, Eos % (Auto) 0.2, Baso % (Auto) 0.2, Absolute Neuts (auto)4.8, Absolute Lymphs (auto) 0.20 L, Nucleated RBC % 0, Sodium 139, Potassium 3.8, Chloride 107, Carbon Dioxide 18.8 L, Anion Gap 12, BUN 11, Creatinine 0.79,Estim Creat Clear Calc 75.63, Est GFR (MDRD) Non-Af 99, BUN/Creatinine Ratio 13.5, Glucose 182 H, Calcium 8.4, Phosphorus 4.0, Magnesium 1.7, Total Bilirubin0.48, AST 89 H, ALT 39 H, Alkaline Phosphatase 463 H, Total Protein 6.0, Albumin3.0 L, Globulin 3.0, Albumin/Globulin Ratio 1.0 Micro: Microbiology 11/06/24 17:54 Mucosa - Nasopharyngeal Respiratory Panel (PCR) - Final 11/06/24 Unknown Urine, Random Legionella Antigen - Final 11/06/24 Unknown Urine, Random Streptococcus pneumoniae Antigen (M - Final 11/06/24 11:49 Mucosa - Nose SARS-CoV-2, Influenza & RSV (PCR) - Final ABG Data ABG results: ABG 11/07/24 00:52 Specimen Type ART Sample Site L Radial pH 7.51 H Bicarbonate Actual 22.7 Total CO2 24 Base Excess 0 O2 Saturation 96 O2 % 6.0 ABG pCO2 28.6 L ABG pO2 69 L Negin Test Positive O2 Delivery Device Cannula Vent Mode Not entered Radiography Diagnostic Testing: Radiology Impression Chest X-Ray 11/06/24 11:55 IMPRESSION: Lungs are relatively hypoinflated, but appear clear of acute disease. No pleural effusion or pneumothorax is noted. The cardiomediastinal silhouette is within the normal range. Mild thoracic spine dextroscoliosis is seen, with mild degenerative changes present. No acute osseous changes seen. Reading Location: [address] Chest CTA 11/06/24 15:06 IMPRESSION: 1. No pulmonary embolism is identified. Some of the distal pulmonary arteries cannot be evaluated due to suboptimal opacification. 2. Multifocal ground-glass attenuation of both lungs, likely multifocal pneumonia. Reading Location: [id number] Physical Exam Const alert and no apparent distress Constitutional Narrative: up in chair. Became exasperated when told about the +HIV test. HEENT head/scalp atraumatic and moist oral mucous membranes Resp normal respiratory effort, no retractions, no use of accessory muscles and clearto auscultation bilaterally Cardio regular rate, regular rhythm, S1 normal heart sound and S2 normal heart sound GI normal to inspection, nondistended, normoactive bowel sounds, soft to palpation,non-tender and non-distended Assessment & Plan Assessment/Plan (1) Bilateral interstitial pneumonia: PLAN: Diffuse bilaterally. Unclear type. Given the +HIV test, concern for Pneumocystis jiroveci infection. On LVQ and vancomycin. Methylpred Methylpred, BDs, respiratory panel Blood culture pending autoimmune work ordered DW Dr. Cardona, plan for endoscopy. (2) HIV (human immunodeficiency virus infection): PLAN: Concern for active infection, even AIDS. ID consulted. CD4, Discussed with patient about the HIV test, need for additional testing. PLAN: Plan VTE prophylaxis: LMWH. Greater than 50 minutes of which was spent discussing with the patient about theHIV test results, discussing with specialists. Charges/Coding Visit Charges Inpatient E&M: 99026 Subs Hosp L3 11/07/24 1258 <Electronically signed by Pb Adams DO> Cosigner Signature (if applicable): CC: ~ Signed [facility] Work Phone: [phone] 307-556906-05-2025 Progress note Author Rangel Cardona [facility] Note Date/Time November 07, 2024 11:49 am [facility] Medical Records Department [address] [place] [address] Progress Note - Brush Stainer 11/07/24 0936 MR#: [id number] Acct: [id number] Name: ALMA DELIA DOW Rep #:[id number] : 1985 38 From: Rangel Cardona DO PCP: Care Physician,No Primary Status :ADM CAROLEE Location: [place] [address] Assessment & Plan Assessment/Plan (1) HIV (human immunodeficiency virus infection): (2) Hypoxia: PLAN: Plan RECOMMENDATIONS: 1. Supplemental oxygen to maintain saturations at or above 90%. 2. Continue empiric antimicrobials and steroids. 3. Given positive HIV screen, will proceed with bronchoscopy tomorrow, given concern for opportunistic infections. 4. N.p.o. after midnight. IMPRESSIONS: 1. Shortness of breath and hypoxemia Initially felt to be multifocal pneumonia. However, the patient subsequently screened positive for HIV. This would raise the concern for an opportunistic infection. Accordingly, antimicrobial therapy will be deferred to infectious diseases. Will plan to proceed with bronchoscopy tomorrow with BAL. The patient should be made n.p.o. after midnight. Supplemental oxygen will be weaned to maintain saturations at or above 90%. 2. Chronic tobacco dependency Complicates care, management, recovery and prognosis. Smoking cessation is advisable. This note was generated with [employer] software. It may contain incorrectwords, spelling, and punctuation that were not noted in checking the note beforesigning. Subjective Subjective The patient was seen and examined at the bedside this morning. Events from the last 24 hours have been reviewed. The patient is currently afebrile, hemodynamically stable and maintaining appropriate oxygen saturations on 2 L/minvia nasal cannula. The patient reported that, overall, she feels much improved from a respiratory perspective since her admission. White blood cell count is normal. Chemistry profile was unremarkable. The patient is HIV test was found to be reactive. Therefore, infectious diseases consultation is going to be obtained. Objective Data Objective Data The patient's most recent lab work, culture data and imaging studies have all been personally reviewed. COVID, influenza and RSV PCR's were negative. Respiratory viral panel was negative. Blood cultures are pending. Strep and urine Legionella antigens were negative. Vital Signs: Vital Signs Temp Pulse Resp BP Pulse Ox O2 Del Method O2 Flow Rate 98.5 F 100 24 H 93/62 95 Nasal Cannula 2 11/07/24 08:24 11/07/24 08:52 11/07/24 08:52 11/07/24 08:24 11/07/24 08:53 11/07/24 08:57 11/07/24 08:57 Oxygen Flow Rate (L/min) 2 Oxygen Delivery Method Nasal Cannula Weight: 123 lb 0.287 oz Body Mass Index (BMI) 24.0 Intake & Output: Intake and Output for Last 24 Hours 11/05/24 11/06/24 11/07/24 23:59 23:59 23:59 Intake Total 2150 / 2150 530 / 530 Output Total 500 / 500 Balance 1650 / 1650 530 / 530 Lab / Micro Data Attestation: I reviewed the patient's lab results. 11/07/24 04:55 11/07/24 04:55 Labs: Laboratory Results - last 24 hr 11/06/24 11:49: WBC 5.1, RBC 3.08 L, Hgb 9.2 L, Hct 27.3 L, MCV 88.6, MCH 29.9, MCHC 33.7, RDW Std Deviation 50.0 H, RDW Coeff of Deb 15.5 H, Plt Count 155, MPV11.0, Immature Gran % (Auto) 0.400, Neut % (Auto) 90.1 H, Lymph % (Auto) 4.9 L, Roosevelt % (Auto) 3.4, Eos % (Auto) 1.0, Baso % (Auto) 0.2, Absolute Neuts (auto) 4.6, Absolute Lymphs (auto) 0.25 L, Nucleated RBC % 0, Sodium 135, Potassium 2.8L, Chloride 100, Carbon Dioxide 21.8, Anion Gap 13, BUN 13, Creatinine 0.80, Estim Creat Clear Calc 68.49, Est GFR (MDRD) Non-Af 97, BUN/Creatinine Ratio 16.6, Glucose 105 H, Lactic Acid < 1.0, Calcium 9.0, Total Bilirubin 0.45, AST 74 H, ALT 42 H, Alkaline Phosphatase 429 H, Lactate Dehydrogenase 467 H, NT pro BNP II 317, Total Protein 6.5, Albumin 3.2 L, Globulin 3.3, Albumin/Globulin Ratio 1.0, HIV 1&2 Antibody Reactive H 11/06/24 17:23: ESR 28, Retic Count 1.09, Immature Retic Fraction 9.90, Retic Hgb Equivalent 29.6 L, Iron 23 L, TIBC 221 L, Iron Saturation 10.4 L, Unsaturated IBC 198 L, Ferritin 1130 H, C-React Prot Ext Range 56.70 H, Procalcitonin 0.53 H, BLOSSOM-1 Antibody Cancelled, SS-A/Ro IgG Antibody Cancelled, SS-B/La IgG Antibody Cancelled, Sm (Olson) Antibody Cancelled, WORK FORCE ADVISOR Antibody Cancelled, Scl-70 Scleroderma Ab Cancelled, Double Strand DNA Ab Cancelled, Antichromatin Antibodies Cancelled, Centromere B Antibody Cancelled 11/06/24 18:26: ANCA Immunofluorescen Cancelled, c-ANCA Antibody Cancelled, Atypical p-ANCA Cancelled, p-ANCA Antibody Cancelled 11/06/24 18:31: Urine Color Straw, Urine Clarity Clear, Urine pH 6.5, Ur Specific Lincoln 1.010, Urine Protein 15 H, Urine Glucose (UA) Normal, Urine Ketones Negative, Urine Occult Blood Negative, Urine Nitrite Negative, Urine Bilirubin Negative, Urine Urobilinogen Normal, Ur Leukocyte Esterase Negative, Urine RBC 0-5 SEEN, Urine WBC 0-5 SEEN, Ur Squamous Epith Cells 0-5 SEEN, Urine Bacteria 0 SEEN, Urine Mucus 0 SEEN, Urine Opiates Screen NEGATIVE, U Buprenorphine Qual NEGATIVE, Ur Oxycodone Screen NEGATIVE, Urine Methadone Screen NEGATIVE, Urine Fentanyl Screen NEGATIVE, Ur Barbiturates Screen NEGATIVE, Ur Phencyclidine Scrn NEGATIVE, Ur Amphetamines Screen NEGATIVE, U Benzodiazepines Scrn NEGATIVE, Urine Cocaine Screen NEGATIVE, U Cannabinoids Screen NEGATIVE 11/06/24 22:22: MRSA (PCR) Negative 11/06/24 : Urine Test Negative 11/07/24 04:55: WBC 5.1, RBC 2.96 L, Hgb 8.9 L, Hct 26.8 L, MCV 90.5, MCH 30.1, MCHC 33.2, RDW Std Deviation 52.1 H, RDW Coeff of Deb 15.7 H, Plt Count 127 L, MPV 11.1, Immature Gran % (Auto) 0.400, Neut % (Auto) 93.7 H, Lymph % (Auto) 3.9L, Roosevelt % (Auto) 1.6, Eos % (Auto) 0.2, Baso % (Auto) 0.2, Absolute Neuts (auto)4.8, Absolute Lymphs (auto) 0.20 L, Nucleated RBC % 0, Sodium 139, Potassium 3.8, Chloride 107, Carbon Dioxide 18.8 L, Anion Gap 12, BUN 11, Creatinine 0.79,Estim Creat Clear Calc 75.63, Est GFR (MDRD) Non-Af 99, BUN/Creatinine Ratio 13.5, Glucose 182 H, Calcium 8.4, Phosphorus 4.0, Magnesium 1.7, Total Bilirubin0.48, AST 89 H, ALT 39 H, Alkaline Phosphatase 463 H, Total Protein 6.0, Albumin3.0 L, Globulin 3.0, Albumin/Globulin Ratio 1.0 Micro: Microbiology 11/06/24 17:54 Mucosa - Nasopharyngeal Respiratory Panel (PCR) - Final 11/06/24 Unknown Urine, Random Legionella Antigen - Final 11/06/24 Unknown Urine, Random Streptococcus pneumoniae Antigen (M - Final 11/06/24 11:49 Mucosa - Nose SARS-CoV-2, Influenza & RSV (PCR) - Final ABG Data ABG results: ABG 11/07/24 00:52 Specimen Type ART Sample Site L Radial pH 7.51 H Bicarbonate Actual 22.7 Total CO2 24 Base Excess 0 O2 Saturation 96 O2 % 6.0 ABG pCO2 28.6 L ABG pO2 69 L Negin Test Positive O2 Delivery Device Cannula Vent Mode Not entered Radiography Diagnostic Testing: Radiology Impression Chest X-Ray 11/06/24 11:55 IMPRESSION: Lungs are relatively hypoinflated, but appear clear of acute disease. No pleural effusion or pneumothorax is noted. The cardiomediastinal silhouette is within the normal range. Mild thoracic spine dextroscoliosis is seen, with mild degenerative changes present. No acute osseous changes seen. Reading Location: [address] Chest CTA 11/06/24 15:06 IMPRESSION: 1. No pulmonary embolism is identified. Some of the distal pulmonary arteries cannot be evaluated due to suboptimal opacification. 2. Multifocal ground-glass attenuation of both lungs, likely multifocal pneumonia. Reading Location: [facility] Physical Exam Const alert and no apparent distress Constitutional Narrative: Sitting in bedside recliner. General Appearance: cooperative HEENT normocephalic, head/scalp atraumatic and moist oral mucous membranes Eyes PERRL, EOMs intact bilaterally and conjunctivae normal Neck supple General: trachea midline Chest inspection of chest normal Resp normal respiratory effort Auscultation: rales Cardio regular rate and regular rhythm GI normal to inspection, nondistended, normoactive bowel sounds Extremity no clubbing, cyanosis or edema Skin no rashes or lesions noted Neuro CN's II-XII intact bilaterally, moves all extremities and no focal motor deficits Psych cooperative and affect normal Charges/Coding Visit Charges Inpatient E&M: 72732 Subs Hosp L2 11/07/24 1149 <Electronically signed by Rangel Cardona DO> Cosigner Signature (if applicable): CC: ~ Signed [facility] Work Phone: [phone] Consult note Author Chidi Arellano [facility] Note Date/Time November 07, 2024 11:17 am [facility] Medical Records Department [address] [place] [address] Consultation - Infectious Dx 11/07/24 1105 MR#: [id number] Acct: [id number] Name: ALMA DELIA DOW Rep #:[id number] : 1985 38 From: Chidi vivas MD PCP: Care Physician,No Primary Status :ADM CAROLEE Location: [place] [address] Assessment & Plan Assessment/Plan (1) Bilateral interstitial pneumonia: (2) HIV (human immunodeficiency virus infection): PLAN: HIV prelim (+) with hypoxia and several months of dyspnea, dry cough, fatigue, weight loss. CT shows bilat interstitial infiltrates. Concern for OI. Will test for ebv, cmv, histo, crypto, toxo. Uags neg. Resp pcr panel neg. D/w pulm, bronch planned for tomorrow; would send for PJP staining, AFB, fungal,and bacterial cultures. High concern for PJP, will check LDH. ABG done. On solumedrol. Has h/o bactrim reaction (ANDREA and bone marrow suppression), so willorder clinda and primaquine if available. Cover with [...] a 38 F with minimal PMH, presented 6/4 to ED with 5 months dry cough, dyspnea, 20lb weight loss, chills/sweats/fever, and fatigue. Reportspoor appetite due to her shortness of breath. No pain or difficulty swallowing. No rash. No diarrhea. No vision changes. No swollen lymph nodes. No sick contacts. Came to ED, CT showed diffuse interstitial infiltrates, admitted on vanc, levaquin, and solumedrol. HIV prelim test now (+). She does not want herfamily to know at this point. Full ROS performed and neg except as noted above. Exposure history: Denies h/o IVDU, no known HIV (+) partners. Has 3 children, 12, 16, and 18. Does not know when last hiv test was. Denies any h/o STI in the past. Has a dog and cats at home, no exposure to other animals. Only travel recently was to [place] in August. [facility] Medical History Anemia Migraine headache Gastric reflux Hoarseness Hx of sepsis Smoker Abnormal results of thyroid function studies Malaise and fatigue Unspecified voice and resonance disorder Hair loss Insomnia Home Medications ?Medication ?Instructions ?Recorded ?Last Taken ?Type NK 11/06/24 Unknown History Allergy/AdvReac Type Severity [...] of Deb 15.5 H, Plt Count 155, MPV11.0, Immature Gran % (Auto) 0.400, Neut % (Auto) 90.1 H, Lymph % (Auto) 4.9 L, Roosevelt % (Auto) 3.4, Eos % (Auto) 1.0, Baso % (Auto) 0.2, Absolute Neuts (auto) 4.6, Absolute Lymphs (auto) 0.25 L, Nucleated RBC % 0, Sodium 135, Potassium 2.8L, Chloride 100, Carbon Dioxide 21.8, Anion Gap 13, BUN 13, Creatinine 0.80, Estim Creat Clear Calc 68.49, Est GFR (MDRD) Non-Af 97, BUN/Creatinine Ratio 16.6, Glucose 105 H, Lactic Acid < 1.0, Calcium 9.0, Total Bilirubin 0.45, AST 74 H, ALT 42 H, Alkaline Phosphatase 429 H, Lactate Dehydrogenase 467 H, NT pro BNP II 317, Total Protein 6.5, Albumin 3.2 L, Globulin 3.3, Albumin/Globulin Ratio 1.0, HIV 1&2 Antibody Reactive H 11/06/24 17:23: ESR 28, Retic Count 1.09, Immature Retic Fraction 9.90, Retic Hgb Equivalent 29.6 L, Iron 23 L, TIBC 221 L, Iron Saturation 10.4 L, Unsaturated IBC 198 L, Ferritin 1130 H, C-React Prot Ext Range 56.70 H, Procalcitonin 0.53 H, BLOSSOM-1 Antibody Cancelled, SS-A/Ro IgG Antibody Cancelled, SS-B/La IgG Antibody Cancelled, Sm (Olson) Antibody Cancelled, WORK FORCE ADVISOR Antibody Cancelled, Scl-70 Scleroderma Ab Cancelled, Double Strand DNA Ab Cancelled, Antichromatin Antibodies Cancelled, Centromere B Antibody Cancelled 11/06/24 18:26: ANCA Immunofluorescen Cancelled, c-ANCA Antibody Cancelled, Atypical p-ANCA Cancelled, p-ANCA Antibody Cancelled 11/06/24 18:31: Urine Color Straw, Urine Clarity Clear, Urine pH 6.5, Ur Specific Lincoln 1.010, Urine Protein 15 H, Urine Glucose (UA) Normal, Urine Ketones Negative, Urine Occult Blood Negative, Urine Nitrite Negative, Urine Bilirubin Negative, Urine Urobilinogen Normal, Ur Leukocyte Esterase Negative, Urine RBC 0-5 SEEN, Urine WBC 0-5 SEEN, Ur Squamous Epith Cells 0-5 SEEN, Urine Bacteria 0 SEEN, Urine Mucus 0 SEEN, Urine Opiates Screen NEGATIVE, U Buprenorphine Qual NEGATIVE, Ur Oxycodone Screen NEGATIVE, Urine Methadone Screen NEGATIVE, Urine Fentanyl Screen NEGATIVE, Ur Barbiturates Screen NEGATIVE, Ur Phencyclidine Scrn NEGATIVE, Ur Amphetamines Screen NEGATIVE, U Benzodiazepines Scrn NEGATIVE, Urine Cocaine Screen NEGATIVE, U Cannabinoids Screen NEGATIVE 11/06/24 22:22: MRSA (PCR) Negative 11/06/24 : Urine Test Negative 11/07/24 04:55: WBC 5.1, RBC 2.96 L, Hgb 8.9 L, Hct 26.8 L, MCV 90.5, MCH 30.1, MCHC 33.2, RDW Std Deviation 52.1 H, RDW Coeff of Deb 15.7 H, Plt Count 127 L, MPV 11.1, Immature Gran % (Auto) 0.400, Neut % (Auto) 93.7 H, Lymph % (Auto) 3.9L, Roosevelt % (Auto) 1.6, Eos % (Auto) 0.2, Baso % (Auto) 0.2, Absolute Neuts (auto)4.8, Absolute Lymphs (auto) 0.20 L, Nucleated RBC % 0, Sodium 139, Potassium 3.8, Chloride 107, Carbon Dioxide 18.8 L, Anion Gap 12, BUN 11, Creatinine 0.79,Estim Creat Clear Calc 75.63, Est GFR (MDRD) Non-Af 99, BUN/Creatinine Ratio 13.5, Glucose 182 H, Calcium 8.4, Phosphorus 4.0, Magnesium 1.7, Total Bilirubin0.48, AST 89 H, ALT 39 H, Alkaline Phosphatase 463 H, Total Protein 6.0, Albumin3.0 L, Globulin 3.0, Albumin/Globulin Ratio 1.0 Micro: Microbiology 11/06/24 17:54 Mucosa - Nasopharyngeal Respiratory Panel (PCR) - Final 11/06/24 Unknown Urine, Random Legionella Antigen - Final 11/06/24 Unknown Urine, Random Streptococcus pneumoniae Antigen (M - Final 11/06/24 11:49 Mucosa - Nose SARS-CoV-2, Influenza & RSV (PCR) - Final ABG Data ABG results: ABG 11/07/24 00:52 Specimen Type ART Sample Site L Radial pH 7.51 H Bicarbonate Actual 22.7 Total CO2 24 Base Excess 0 O2 Saturation 96 O2 % 6.0 ABG pCO2 28.6 L ABG pO2 69 L Negin Test Positive O2 Delivery Device Cannula Vent Mode Not entered Imaging Radiology Impression Chest X-Ray 11/06/24 11:55 IMPRESSION: Lungs are relatively hypoinflated, but appear clear of acute disease. No pleural effusion or pneumothorax is noted. The cardiomediastinal silhouette is within the normal range. Mild thoracic spine dextroscoliosis is seen, with mild degenerative changes present. No acute osseous changes seen. Reading Location: [address] Chest CTA 11/06/24 15:06 IMPRESSION: 1. No pulmonary embolism is identified. Some of the distal pulmonary arteries cannot be evaluated due to suboptimal opacification. 2. Multifocal ground-glass attenuation of both lungs, likely multifocal pneumonia. Reading Location: [facility] 11/07/24 1117 <Electronically signed by Chidi Arellano MD> Cosigner Signature (if applicable): CC: No Primary Care Physician~ Signed [facility] Work Phone: [phone] Progress note [facility] Medical Records Department [address] [place] [address] Progress Note - Hospitalist 11/07/24 0818 MR#: [id number] Acct: [id number] Name: ALMA DELIA DOW Rep #:[id number] : 1985 38 From: Pb Adams DO PCP: Care Physician,No Primary Status :ADM IN Location: [place] [address] Reason for Visit Reason for Visit: Diagnoses Anemia, unspecified (11/06/24) Hypokalemia (11/06/24) Hypotension, unspecified (11/06/24) Interstitial pulmonary disease, unspecified (11/06/24) Hypoxemia (11/06/24) Subjective Subjective Feeling much better. Had been ill for weeks. Denies IV drug abuse. Objective Data Objective Data Vital Signs: Vital Signs Temp Pulse Resp BP Pulse Ox O2 Del Method O2 Flow Rate 36.4 C L 78 20 H 96/66 94 Nasal Cannula 2 11/07/24 05:22 11/07/24 05:22 11/07/24 05:22 11/07/24 05:22 11/07/24 05:22 11/07/24 05:22 11/07/24 05:22 Oxygen Flow Rate (L/min) 2 Oxygen Delivery Method Nasal Cannula Weight: 55.8 kg Body Mass Index (BMI) 24.0 Intake & Output: Intake and Output for Last 24 Hours 11/05/24 11/06/24 11/07/24 23:59 23:59 23:59 Intake Total 2150 / 2150 530 / 530 Output Total 500 / 500 Balance 1650 / 1650 530 / 530 Lab / Micro Data 11/07/24 04:55 11/07/24 04:55 Labs: Laboratory Results - last 24 hr 11/06/24 11:49: WBC 5.1, RBC 3.08 L, Hgb 9.2 L, Hct 27.3 L, MCV 88.6, MCH 29.9, MCHC 33.7, RDW Std Deviation 50.0 H, RDW Coeff of Deb 15.5 H, Plt Count 155, MPV11.0, Immature Gran % (Auto) 0.400, Neut % (Auto) 90.1 H, Lymph % (Auto) 4.9 L, Roosevelt % (Auto) 3.4, Eos % (Auto) 1.0, Baso % (Auto) 0.2, Absolute Neuts (auto) 4.6, Absolute Lymphs (auto) 0.25 L, Nucleated RBC % 0, Sodium 135, Potassium 2.8L, Chloride 100, Carbon Dioxide 21.8, Anion Gap 13, BUN 13, Creatinine 0.80, Estim Creat Clear Calc 68.49, Est GFR (MDRD) Non-Af 97, BUN/Creatinine Ratio 16.6, Glucose 105 H, Lactic Acid < 1.0, Calcium 9.0, Total Bilirubin 0.45, AST 74 H, ALT 42 H, Alkaline Phosphatase 429 H, Lactate [id number] H, NT pro BNP II 317, Total Protein 6.5, Albumin 3.2 L, Globulin 3.3, Albumin/Globulin Ratio 1.0, HIV 1&2 Antibody Reactive H 11/06/24 17:23: ESR 28, Retic Count 1.09, Immature Retic Fraction 9.90, Retic Hgb Equivalent 29.6 L, Iron 23 L, TIBC 221 L, Iron Saturation 10.4 L, Unsaturated IBC 198 L, Ferritin 1130 H, C-React Prot Ext Range 56.70 H, Procalcitonin 0.53 H, BLOSSOM-1 Antibody Cancelled, SS-A/Ro IgG Antibody Cancelled, S S-B/La IgG Antibody Cancelled, Sm (Olson) Antibody Cancelled, WORK FORCE ADVISOR Antibody Cancelled, Scl-70 Scleroderma Ab Cancelled, Double Strand DNA Ab Cancelled, Antichromatin Antibodies Cancelled, Centromere BAntibody Cancelled 11/06/24 18:26: ANCA Immunofluorescen Cancelled, c-ANCA Antibody Cancelled, Atypical p-ANCA Cancelled, p-ANCA Antibody Cancelled 11/06/24 18:31: Urine Color Straw, Urine Clarity Clear, Urine pH 6.5, Ur Specific Lincoln 1.010, Urine Protein 15 H, Urine Glucose (UA) Normal, Urine Ketones Negative, Urine Occult Blood Negative, Urine Nitrite Negative, Urine Bilirubin Negative, Urine Urobilinogen Normal, Ur Leukocyte Esterase Negative, Urine RBC 0-5 SEEN, Urine WBC 0-5 SEEN, Ur Squamous Epith Cells 0-5 SEEN, Urine Bacteria 0 SEEN, Urine Mucus 0 SEEN, Urine Opiates Screen NEGATIVE, U Buprenorphine Qual NEGATIVE, Ur Oxycodone Screen NEGATIVE, Urine Methadone Screen NEGATIVE, Urine Fentanyl Screen NEGATIVE, Ur Barbiturates Screen NEGATIVE, Ur Phencyclidine Scrn NEGATIVE, Ur Amphetamines Screen NEGATIVE, U Benzodiazepines Scrn NEGATIVE, Urine Cocaine Screen NEGATIVE, U Cannabinoids Screen NEGATIVE 11/06/24 22:22: MRSA (PCR) Negative 11/06/24 : Urine Test Negative 11/07/24 04:55: WBC 5.1, RBC 2.96 L, Hgb 8.9 L, Hct 26.8 L, MCV 90.5, MCH 30.1, MCHC 33.2, RDW Std Deviation 52.1 H, RDW Coeff of Deb 15.7 H, Plt Count 127 L, MPV 11.1, Immature Gran % (Auto) 0.400, Neut % (Auto) 93.7 H, Lymph % (Auto) 3.9L, Roosevelt % (Auto) 1.6, Eos % (Auto) 0.2, Baso % (Auto) 0.2, Absolute Neuts (auto)4.8, Absolute Lymphs (auto) 0.20 L, Nucleated RBC % 0, Sodium 139, Potassium 3.8, Chloride 107, Carbon Dioxide 18.8 L, Anion Gap 12, BUN 11, Creatinine 0.79,Estim Creat Clear Calc 75.63, Est GFR (MDRD) Non-Af 99, BUN/Creatinine Ratio 13.5, Glucose 182 H, Calcium 8.4, Phosphorus 4.0, Magnesium 1.7, Total Bilirubin0.48, AST 89 H, ALT 39 H, Alkaline Phosphatase 463 H, Total Protein 6.0, Albumin3.0 L, Globulin 3.0, Albumin/Globulin Ratio 1.0 Micro: Microbiology 11/06/24 17:54 Mucosa - Nasopharyngeal Respiratory Panel (PCR) - Final 11/06/24 Unknown Urine, Random Legionella Antigen - Final 11/06/24 Unknown Urine, Random Streptococcus pneumoniae Antigen (M - Final 11/06/24 11:49 Mucosa - Nose SARS-CoV-2, Influenza & RSV (PCR) - Final ABG Data ABG results: ABG 11/07/24 00:52 Specimen Type ART Sample Site L Radial pH 7.51 H Bicarbonate Actual 22.7 Total CO2 24 Base Excess 0 O2 Saturation 96 O2 % 6.0 ABG pCO2 28.6 L ABG pO2 69 L Negin Test Positive O2 Delivery Device Cannula Vent Mode Not entered Radiography Diagnostic Testing: Radiology Impression Chest X-Ray 11/06/24 11:55 IMPRESSION: Lungs are relatively hypoinflated, but appear clear of acute disease. No pleural effusion or pneumothorax is noted. The cardiomediastinal silhouette is within the normal range. Mild thoracic spine dextroscoliosis is seen, with mild degenerative changes present. No acute osseous changes seen. Reading Location: [id number] Chest CTA 11/06/24 15:06 IMPRESSION: 1. No pulmonary embolism is identified. Some of the distal pulmonary arteries cannot be evaluated due to suboptimal opacification. 2. Multifocal ground-glass attenuation of both lungs, likely multifocal pneumonia. Reading Location: [id number] Physical Exam Const alert and no apparent distress Constitutional Narrative: up in chair. Became exasperated when told about the +HIV test. HEENT head/scalp atraumatic and moist oral mucous membranes Resp normal respiratory effort, no retractions, no use of accessory muscles and clearto auscultation bilaterally Cardio regular rate, regular rhythm, S1 normal heart sound and S2 normal heart sound GI normal to inspection, nondistended, normoactive bowel sounds, soft to palpation,non-tender and non-distended Assessment & Plan Assessment/Plan (1) Bilateral interstitial pneumonia: PLAN: Diffuse bilaterally. Unclear type. Given the +HIV test, concern for Pneumocystis jiroveci infection. On LVQ and vancomycin. Methylpred Methylpred, BDs, respiratory panel Blood culture pending autoimmune work ordered DW Dr. Cardona, plan for endoscopy. (2) HIV (human immunodeficiency virus infection): PLAN: Concern for active infection, even AIDS. ID consulted. CD4, Discussed with patient about the HIV test, need for additional testing. PLAN: Plan VTE prophylaxis: LMWH. Greater than 50 minutes of which was spent discussing with the patient about theHIV test results, discussing with specialists. Charges/Coding Visit Charges Inpatient E&M: 93996 Subs Hosp L3 11/07/24 1258 Cosigner Signature (if applicable): CC: ~ Signed [facility]06-05-2025 Progress note [facility] Medical Records Department [address] [place] [id number] Progress Note - Brush Stainer 11/07/24 0936 MR#: [id number] Acct: [id number] Name: ALMA DELIA DOW Rep #:[id number] : 1985 38 From: Rangel Cardona DO PCP: Care Physician,No Primary Status :ADM CAROLEE Location: [place] [address] Assessment & Plan Assessment/Plan (1) HIV (human immunodeficiency virus infection): (2) Hypoxia: PLAN: Plan RECOMMENDATIONS: 1. Supplemental oxygen to maintain saturations at or above 90%. 2. Continue empiric antimicrobials and steroids. 3. Given positive HIV screen, will proceed with bronchoscopy tomorrow, given concern for opportunistic infections. 4. N.p.o. after midnight. IMPRESSIONS: 1. Shortness of breath and hypoxemia Initially felt to be multifocal pneumonia. However, the patient subsequently screened positive for HIV. This would raise the concern for an opportunistic infection. Accordingly, antimicrobial therapywill be deferred to infectious diseases. Will plan to proceed with bronchoscopy tomorrow with BAL. The patient should be made n.p.o. after midnight. Supplemental oxygen will be weaned to maintain saturations at or above 90%. 2. Chronic tobacco dependency Complicates care, management, recovery and prognosis. Smoking cessation is advisable. This note was generated with [employer] dictation software. It may contain incorrectwords, spelling, and punctuation that were not noted in checking the note beforesigning. Subjective Subjective The patient was seen and examined at the bedside this morning. Events from the last 24 hours have been reviewed. The patient is currently afebrile, hemodynamically stable and maintaining appropriate oxygen saturations on 2 L/minvia nasal cannula. The patient reported that, overall, she feels much im proved from a respiratory perspective since her admission. White blood cell count is normal. Chemistry profile was unremarkable. The patient is HIV test was found to be reactive. Therefore, infectious diseases consultation is going to be obtained. Objective Data Objective Data The patient's most recent lab work, culture data and imaging studies have all been personally reviewed. COVID, influenza and RSV PCR's were negative. Respiratory viral panel was negative. Blood cultures are pending. Strep and urine Legionella antigens were negative. Vital Signs: Vital Signs Temp Pulse Resp BP Pulse Ox O2 Del Method O2 Flow Rate 98.5 F 100 24 H 93/62 95 Nasal Cannula 2 11/07/24 08:24 11/07/24 08:52 11/07/24 08:52 11/07/24 08:24 11/07/24 08:53 11/07/24 08:57 11/07/24 08:57 Oxygen Flow Rate (L/min) 2 Oxygen Delivery Method Nasal Cannula Weight: 123 lb 0.287 oz Body Mass Index (BMI) 24.0 Intake & Output: Intake and Output for Last 24 Hours 11/05/24 11/06/24 11/07/24 23:59 23:59 23:59 Intake Total 2150 / 2150 530 / 530 Output Total 500 / 500 Balance 1650 / 1650 530 / 530 Lab / Micro Data Attestation: I reviewed the patient's lab results. 11/07/24 04:55 11/07/24 04:55 Labs: Laboratory Results - last 24 hr 11/06/24 11:49: WBC 5.1, RBC 3.08 L, Hgb 9.2 L, Hct 27.3 L, MCV 88.6, MCH 29.9, MCHC 33.7, RDW Std Deviation 50.0 H, RDW Coeff of Deb 15.5 H, Plt Count 155, MPV11.0, Immature Gran % (Auto) 0.400, Neut % (Auto) 90.1 H, Lymph % (Auto) 4.9 L, Roosevelt % (Auto) 3.4, Eos % (Auto) 1.0, Baso % (Auto) 0.2, Absolute Neuts (auto) 4.6, Absolute Lymphs (auto) 0.25 L, Nucleated RBC % 0, Sodium 135, Potassium 2.8L, Chloride 100, Carbon Dioxide 21.8, Anion Gap 13, BUN 13, Creatinine 0.80, Estim Creat Clear Calc 68.49, Est GFR (MDRD) Non-Af 97, BUN/Creatinine Ratio 16.6, Glucose 105 H, Lactic Acid < 1.0, Calcium 9.0, Total Bilirubin 0.45, AST 74 H, ALT 42 H, Alkaline Phosphatase 429 H, Lactate [id number] H, NT pro BNP II 317, Total Protein 6.5, Albumin 3.2 L, Globulin 3.3, Albumin/Globulin Ratio 1.0, HIV 1&2 Antibody Reactive H 11/06/24 17:23: ESR 28, Retic Count 1.09, Immature Retic Fraction 9.90, Retic Hgb Equivalent 29.6 L, Iron 23 L, TIBC 221 L, Iron Saturation 10.4 L, Unsaturated IBC 198 L, Ferritin 1130 H, C-React Prot Ext Range 56.70 H, Procalcitonin 0.53 H, BLOSSOM-1 Antibody Cancelled, SS-A/Ro IgG Antibody Cancelled, S S-B/La IgG Antibody Cancelled, Sm (Olson) Antibody Cancelled, WORK FORCE ADVISOR Antibody Cancelled, Scl-70 Scleroderma Ab Cancelled, Double Strand DNA Ab Cancelled, Antichromatin Antibodies Cancelled, Centromere BAntibody Cancelled 11/06/24 18:26: ANCA Immunofluorescen Cancelled, c-ANCA Antibody Cancelled, Atypical p-ANCA Cancelled, p-ANCA Antibody Cancelled 11/06/24 18:31: Urine Color Straw, Urine Clarity Clear, Urine pH 6.5, Ur Specific Lincoln 1.010, Urine Protein 15 H, Urine Glucose (UA) Normal, Urine Ketones Negative, Urine Occult Blood Negative, Urine Nitrite Negative, Urine Bilirubin Negative, Urine Urobilinogen Normal, Ur Leukocyte Esterase Negative, Urine RBC 0-5 SEEN, Urine WBC 0-5 SEEN, Ur Squamous Epith Cells 0-5 SEEN, Urine Bacteria 0 SEEN, Urine Mucus 0 SEEN, Urine Opiates Screen NEGATIVE, U Buprenorphine Qual NEGATIVE, Ur Oxycodone Screen NEGATIVE, Urine Methadone Screen NEGATIVE, Urine Fentanyl Screen NEGATIVE, Ur Barbiturates Screen NEGATIVE, Ur Phencyclidine Scrn NEGATIVE, Ur Amphetamines Screen NEGATIVE, U Benzodiazepines Scrn NEGATIVE, Urine Cocaine Screen NEGATIVE, U Cannabinoids Screen NEGATIVE 11/06/24 22:22: MRSA (PCR) Negative 11/06/24 : Urine Test Negative 11/07/24 04:55: WBC 5.1, RBC 2.96 L, Hgb 8.9 L, Hct 26.8 L, MCV 90.5, MCH 30.1, MCHC 33.2, RDW Std Deviation 52.1 H, RDW Coeff of Deb 15.7 H, Plt Count 127 L, MPV 11.1, Immature Gran % (Auto) 0.400, Neut % (Auto) 93.7 H, Lymph % (Auto) 3.9L, Roosevelt % (Auto) 1.6, Eos % (Auto) 0.2, Baso % (Auto) 0.2, Absolute Neuts (auto)4.8, Absolute Lymphs (auto) 0.20 L, Nucleated RBC % 0, Sodium 139, Potassium 3.8, Chloride 107, Carbon Dioxide 18.8 L, Anion Gap 12, BUN 11, Creatinine 0.79,Estim Creat Clear Calc 75.63, Est GFR (MDRD) Non-Af 99, BUN/Creatinine Ratio 13.5, Glucose 182 H, Calcium 8.4, Phosphorus 4.0, Magnesium 1.7, Total Bilirubin0.48, AST 89 H, ALT 39 H, Alkaline Phosphatase 463 H, Total Protein 6.0, Albumin3.0 L, Globulin 3.0, Albumin/Globulin Ratio 1.0 Micro: Microbiology 11/06/24 17:54 Mucosa - Nasopharyngeal Respiratory Panel (PCR) - Final 11/06/24 Unknown Urine, Random Legionella Antigen - Final 11/06/24 Unknown Urine, Random Streptococcus pneumoniae Antigen (M - Final 11/06/24 11:49 Mucosa - Nose SARS-CoV-2, Influenza & RSV (PCR) - Final ABG Data ABG results: ABG 11/07/24 00:52 Specimen Type ART Sample Site L Radial pH 7.51 H Bicarbonate Actual 22.7 Total CO2 24 Base Excess 0 O2 Saturation 96 O2 % 6.0 ABG pCO2 28.6 L ABG pO2 69 L Negin Test Positive O2 Delivery Device Cannula Vent Mode Not entered Radiography Diagnostic Testing: Radiology Impression Chest X-Ray 11/06/24 11:55 IMPRESSION: Lungs are relatively hypoinflated, but appear clear of acute disease. No pleural effusion or pneumothorax is noted. The cardiomediastinal silhouette is within the normal range. Mild thoracic spine dextroscoliosis is seen, with mild degenerative changes present. No acute osseous changes seen. Reading Location: [address] Chest CTA 11/06/24 15:06 IMPRESSION: 1. No pulmonary embolism is identified. Some of the distal pulmonary arteries cannot be evaluated due to suboptimal opacification. 2. Multifocal ground-glass attenuation of both lungs, likely multifocal pneumonia. Reading Location: [id number] Physical Exam Const alert and no apparent distress Constitutional Narrative: Sitting in bedside recliner. General Appearance: cooperative HEENT normocephalic, head/scalp atraumatic and moist oral mucous membranes Eyes PERRL, EOMs intact bilaterally and conjunctivae normal Neck supple General: trachea midline Chest inspection of chest normal Resp normal respiratory effort Auscultation: rales Cardio regular rate and regular rhythm GI normal to inspection, nondistended, normoactive bowel sounds Extremity no clubbing, cyanosis or edema Skin no rashes or lesions noted Neuro CN's II-XII intact bilaterally, moves all extremities and no focal motor deficits Psych cooperative and affect normal Charges/Coding Visit Charges Inpatient E&M: 37758 Subs Hosp L2 11/07/24 1149 Cosigner Signature (if applicable): CC: ~ Signed [facility]06-05-2025 Consult note [facility] Medical Records Department [address] [place] [address] Consultation - Infectious Dx 11/07/24 1105 MR#: [id number] Acct: [id number] Name: ALMA DELIA DOW Rep #:[id number] : 1985 38 From: Chidi vivas MD PCP: Care Physician,No Primary Status :ADM CAROLEE Location: [place] [address] Assessment & Plan Assessment/Plan (1) Bilateral interstitial pneumonia: (2) HIV (human immunodeficiency virus infection): PLAN: HIV prelim (+) with hypoxia and several months of dyspnea, dry cough, fatigue, weight loss. CT shows bilat interstitial infiltrates. Concern for OI. Will test for ebv, cmv, histo, crypto, toxo.Uags neg. Resp pcr panel neg. D/w pulm, bronch planned for tomorrow; would send for PJP staining, AFB, fungal,and bacterial cultures. High concern for PJP, will check LDH. ABG done. On solumedrol. Has h/o bactrim reaction (ANDREA and bone marrow suppression), so willorder clinda and primaquine if available. Cover with [...] a 38 F with minimal PMH, presented 6/4 to ED with 5 months dry cough, dyspnea, 20lb weight loss, chills/sweats/fever, and fatigue. Reportspoor appetite due to her shortness of breath. No pain or difficulty swallowing. No rash. No diarrhea. No vision changes. No swollen lymph nodes. No sick contacts. Came to ED, CT showed diffuse interstitial infiltrates, admitted on vanc, levaquin, and solumedrol. HIV prelim test now (+). She does not want herfamily to know at this point. Full ROS performed and neg except as noted above. Exposure history: Denies h/o IVDU, no known HIV (+) partners. Has 3 children, 12, 16, and 18. Does not know when last hiv test was. Denies any h/o STI in the past. Has a dog and cats at home, no exposure to other animals. Only travel recently was to [place] in August. [facility] Medical History Anemia Migraine headache Gastric reflux Hoarseness Hx of sepsis Smoker Abnormal results of thyroid function studies Malaise and fatigue Unspecified voice and resonance disorder Hair loss Insomnia Home Medications ?Medication ?Instructions ?Recorded ?Last Taken ?Type NK 11/06/24 Unknown History Allergy/AdvReac Type Severity [...] of Deb 15.5 H, Plt Count 155, MPV11.0, Immature Gran % (Auto) 0.400, Neut % (Auto) 90.1 H, Lymph % (Auto) 4.9 L, Roosevelt % (Auto) 3.4, Eos % (Auto) 1.0, Baso % (Auto) 0.2, Absolute Neuts (auto) 4.6, Absolute Lymphs (auto) 0.25 L, Nucleated RBC % 0, Sodium 135, Potassium 2.8L, Chloride 100, Carbon Dioxide 21.8, Anion Gap 13, BUN 13, Creatinine 0.80, Estim Creat Clear Calc 68.49, Est GFR (MDRD) Non-Af 97, BUN/Creatinine Ratio 16.6, Glucose 105 H, Lactic Acid < 1.0, Calcium 9.0, Total Bilirubin 0.45, AST 74 H, ALT 42 H, Alkaline Phosphatase 429 H, Lactate [id number] H, NT pro BNP II 317, Total Protein 6.5, Albumin 3.2 L, Globulin 3.3, Albumin/Globulin Ratio 1.0, HIV 1&2 Antibody Reactive H 11/06/24 17:23: ESR 28, Retic Count 1.09, Immature Retic Fraction 9.90, Retic Hgb Equivalent 29.6 L, Iron 23 L, TIBC 221 L, Iron Saturation 10.4 L, Unsaturated IBC 198 L, Ferritin 1130 H, C-React Prot Ext Range 56.70 H, Procalcitonin 0.53 H, BLOSSOM-1 Antibody Cancelled, SS-A/Ro IgG Antibody Cancelled, S S-B/La IgG Antibody Cancelled, Sm (Olson) Antibody Cancelled, WORK FORCE ADVISOR Antibody Cancelled, Scl-70 Scleroderma Ab Cancelled, Double Strand DNA Ab Cancelled, Antichromatin Antibodies Cancelled, Centromere BAntibody Cancelled 11/06/24 18:26: ANCA Immunofluorescen Cancelled, c-ANCA Antibody Cancelled, Atypical p-ANCA Cancelled, p-ANCA Antibody Cancelled 11/06/24 18:31: Urine Color Straw, Urine Clarity Clear, Urine pH 6.5, Ur Specific Lincoln 1.010, Urine Protein 15 H, Urine Glucose (UA) Normal, Urine Ketones Negative, Urine Occult Blood Negative, Urine Nitrite Negative, Urine Bilirubin Negative, Urine Urobilinogen Normal, Ur Leukocyte Esterase Negative, Urine RBC 0-5 SEEN, Urine WBC 0-5 SEEN, Ur Squamous Epith Cells 0-5 SEEN, Urine Bacteria 0 SEEN, Urine Mucus 0 SEEN, Urine Opiates Screen NEGATIVE, U Buprenorphine Qual NEGATIVE, Ur Oxycodone Screen NEGATIVE, Urine Methadone Screen NEGATIVE, Urine Fentanyl Screen NEGATIVE, Ur Barbiturates Screen NEGATIVE, Ur Phencyclidine Scrn NEGATIVE, Ur Amphetamines Screen NEGATIVE, U Benzodiazepines Scrn NEGATIVE, Urine Cocaine Screen NEGATIVE, U Cannabinoids Screen NEGATIVE 11/06/24 22:22: MRSA (PCR) Negative 11/06/24 : Urine Test Negative 11/07/24 04:55: WBC 5.1, RBC 2.96 L, Hgb 8.9 L, Hct 26.8 L, MCV 90.5, MCH 30.1, MCHC 33.2, RDW Std Deviation 52.1 H, RDW Coeff of Deb 15.7 H, Plt Count 127 L, MPV 11.1, Immature Gran % (Auto) 0.400, Neut % (Auto) 93.7 H, Lymph % (Auto) 3.9L, Roosevelt % (Auto) 1.6, Eos % (Auto) 0.2, Baso % (Auto) 0.2, Absolute Neuts (auto)4.8, Absolute Lymphs (auto) 0.20 L, Nucleated RBC % 0, Sodium 139, Potassium 3.8, Chloride 107, Carbon Dioxide 18.8 L, Anion Gap 12, BUN 11, Creatinine 0.79,Estim Creat Clear Calc 75.63, Est GFR (MDRD) Non-Af 99, BUN/Creatinine Ratio 13.5, Glucose 182 H, Calcium 8.4, Phosphorus 4.0, Magnesium 1.7, Total Bilirubin0.48, AST 89 H, ALT 39 H, Alkaline Phosphatase 463 H, Total Protein 6.0, Albumin3.0 L, Globulin 3.0, Albumin/Globulin Ratio 1.0 Micro: Microbiology 11/06/24 17:54 Mucosa - Nasopharyngeal Respiratory Panel (PCR) - Final 11/06/24 Unknown Urine, Random Legionella Antigen - Final 11/06/24 Unknown Urine, Random Streptococcus pneumoniae Antigen (M - Final 11/06/24 11:49 Mucosa - Nose SARS-CoV-2, Influenza & RSV (PCR) - Final ABG Data ABG results: ABG 11/07/24 00:52 Specimen Type ART Sample Site L Radial pH 7.51 H Bicarbonate Actual 22.7 Total CO2 24 Base Excess 0 O2 Saturation 96 O2 % 6.0 ABG pCO2 28.6 L ABG pO2 69 L Negin Test Positive O2 Delivery Device Cannula Vent Mode Not entered Imaging Radiology Impression Chest X-Ray 11/06/24 11:55 IMPRESSION: Lungs are relatively hypoinflated, but appear clear of acute disease. No pleural effusion or pneumothorax is noted. The cardiomediastinal silhouette is within the normal range. Mild thoracic spine dextroscoliosis is seen, with mild degenerative changes present. No acute osseous changes seen. Reading Location: [address] Chest CTA 11/06/24 15:06 IMPRESSION: 1. No pulmonary embolism is identified. Some of the distal pulmonary arteries cannot be evaluated due to suboptimal opacification. 2. Multifocal ground-glass attenuation of both lungs, likely multifocal pneumonia. Reading Location: [facility] 11/07/24 1117 Cosigner Signature (if applicable): CC: No Primary Care Physician~ Signed [facility]06-05-2025 Progress note Author Mora López [facility] Note Date/Time November 07, 2024 12:16 am [facility] Medical Records Department [address] [place] [address] Progress Note - Hospitalist 11/07/24 0015 MR#: [id number] Acct: [id number] Name: ALMA DELIA DOW Zamzam Rep #:[id number] : 1985 38 From: Mora López MD PCP: Care Physician,No Primary Status :ADM IN Location: [place] [address] Hospitalist Note Patient with increasing oxygen requirements, ongoing tachypnea. BL multifocal PNA admission. Will obtain ABG to be cautious. 11/07/2415 <Electronically signed by Mora López MD> Cosigner Signature (if applicable): CC: ~ Signed [facility] Work Phone: 1(744) 815-285206-05-2025 Progress note [facility] Medical Records Department [address] [place] [address] Progress Note - Hospitalist 11/07/24 001 MR#: [id number] Acct: [id number] Name: ALMA DELIA DOW Rep #:[id number] : 1985 38 From: Mora López MD PCP: Care Physician,No Primary Status :ADM IN Location: [place] [address] Hospitalist Note Patient with increasing oxygen requirements, ongoing tachypnea. BL multifocal PNA admission. Will obtain ABG to be cautious. 11/07/2415 Cosigner Signature (if applicable): CC: ~ Signed [facility]06-04-2025 History and physical note Author Shayy Dodson [facility] Note Date/Time November 06, 2024 8:19p m [facility] Medical Records Department [address] [place] [address] H&P Exam - Hospitalist 11/06/24 1549 MR#: [id number] Acct: [id number] Name: ALMA DELIA DOW Rep #:[id number] : 1985 38 From: Shayy Dodson DO PCP: Care Physician,No Primary Status :ADM IN Location: [place] [address] HPI - General General Date of Admission: 11/06/24 Date of Service: 11/06/24 Chief Complaint: Shortness of breath HPI Narrative ALMA DELIA DOW, is a 38 F who presented to the emergency department [facility] on 11/06/2024 with a chief complaint [...] autoimmune disease. She denies any rashes but doescomplain of myalgias particularly in her legs. Vital [...] CTA was performed due to her symptoms andshowed no PE but multifocal ground glass attenuation in both lungs consistent with multifocal pneumonia. [facility] for [facility] wasmade. [facility] Medical History Anemia Migraine headache Gastric reflux Hoarseness Hx of sepsis Smoker Abnormal results of thyroid function studies Malaise and fatigue Unspecified voice and resonance disorder Hair loss Insomnia Home Medications ?Medication ?Instructions ?Recorded ?Last Taken ?Type NK 11/06/24 Unknown History Allergy/AdvReac Type Severity [...] breath at rest, shortness of breath with exertionand wheezing; Denies hemoptysis or other Gastrointestinal Gastrointestinal: Reports nausea; Denies abdominal pain, coffee ground emesis, constipation, diarrhea, dyspepsia, hematemesis, hematochezia, loose stools, melena, vomiting or other Genitourinary Genitourinary: Denies burning urination, difficulty urinating, dysuria, hematuria, nocturia, urinary frequency, urinary hesitancy, urinary incontinence,urinary urgency or other Musculoskeletal Musculoskeletal: Reports myalgias; Denies arthralgias, back pain, joint pain, joint stiffness, joint swelling, neck pain or other Neurologic Neurologic: Denies abnormal gait, abnormal speech, confusion, disequilibrium, dizziness, focal weakness, headache(s), numbness, paresthesias, seizure-like activity, seizures, syncope, tingling, tremor(s) or other Psychiatric Psychiatric: Denies anxiety, depression, homicidal ideation, suicidal ideation or other Endocrine Endocrinology: Denies change in body appearance, cold intolerance, excessive sweating, heat intolerance, polydipsia, polyuria or other Hematologic/Lymphatic Hematologic/Lymphatic: Denies anemia, easy bleeding, easy bruising, lymphadenopathy or other Allergic/Immunologic Allergic/Immunologic: Denies rhinitis, hives, eczemia, asthma or other Vital Signs Vital Signs Vital Signs: 11/06/24 11:15 11/06/24 12:07 11/06/24 [...] Ox 99 96 Oxygen Delivery Method Room Air Room Air Weight Weight: 54.1 kg Body Mass Index (BMI) 23.3 Physical Exam Const alert, oriented x3 and average body habitus; Negative for no apparent distress or healthy appearing Constitutional Narrative: Ill-appearing, middle-aged, white female, appears older than stated age, lying in bed, currently has rigors, appears toxic, significant other at bedside General Appearance: cooperative HEENT normocephalic, head/scalp atraumatic, hearing grossly normal bilaterally and moist oral mucous membranes HEENT Narrative: Mallampati 2, no thrush Eyes conjunctivae normal Eyes Narrative: No scleral icterus, conjunctiva are mildly pale bilateral Neck supple Neck Narrative: Trachea midline Resp no retractions, no use of accessory muscles and No clear to auscultation bilaterally Resp Narrative: , Tachypneic scattered crackles and end expiratory wheezes with adventitious sounds noted throughout Auscultation: crackles and wheezes; Negative for rhonchi Cardio regular rhythm, S1 normal heart sound, S2 normal heart sound, no murmurs, no rub, no gallops and no clicks Cardio Narrative: Tachycardia GI normal to inspection, nondistended, normoactive bowel sounds and soft to palpation Extremity no clubbing, cyanosis or edema Extremity Narrative: 2+ pedal and radial pulses Neuro oriented x3, moves all extremities and no focal motor deficits Neuro Narrative: Appears generally weak Speech: speech normal Psych Psych Narrative: Affect is flat but appropriate for current situation Results Lab / Micro Data 11/06/24 11:49 11/06/24 11:49 Labs: Laboratory Results - last 24 hr 11/06/24 11:49: WBC 5.1, RBC 3.08 L, Hgb 9.2 L, Hct 27.3 L, MCV 88.6, MCH 29.9, MCHC 33.7, RDW Std Deviation 50.0 H, RDW Coeff of Deb 15.5 H, Plt Count 155, MPV11.0, Immature Gran % (Auto) 0.400, Neut % (Auto) 90.1 H, Lymph % (Auto) 4.9 L, Roosevelt % (Auto) 3.4, Eos % (Auto) 1.0, Baso % (Auto) 0.2, Absolute Neuts (auto) 4.6, Absolute Lymphs (auto) 0.25 L, Nucleated RBC % 0, Sodium 135, Potassium 2.8L, Chloride 100, Carbon Dioxide 21.8, Anion Gap 13, BUN 13, Creatinine 0.80, Estim Creat Clear Calc 68.49, Est GFR (MDRD) Non-Af 97, BUN/Creatinine Ratio 16.6, Glucose 105 H, Lactic Acid < 1.0, Calcium 9.0, Total Bilirubin 0.45, AST 74 H, ALT 42 H, Alkaline Phosphatase 429 H, Total Protein 6.5, Albumin 3.2 L, Globulin 3.3, Albumin/Globulin Ratio 1.0 Micro: Microbiology 11/06/24 11:49 Mucosa - Nose SARS-CoV-2, Influenza & RSV (PCR) - Final Imaging Radiology Impression Chest X-Ray 11/06/24 11:55 IMPRESSION: Lungs are relatively hypoinflated, but appear clear of acute disease. No pleural effusion or pneumothorax is noted. The cardiomediastinal silhouette is within the normal range. Mild thoracic spine dextroscoliosis is seen, with mild degenerative changes present. No acute osseous changes seen. Reading Location: [address] Assessment & Plan Assessment/Plan (1) Hypoxia: (2) Acute hypotension: (3) Bilateral interstitial pneumonia: (4) Anemia: (5) Hypokalemia: PLAN: Plan Hypoxia secondary to bilateral interstitial pneumonia - CT is markedly abnormal - With fevers suspect this is bilateral pneumonia - Check MRSA PCR - Continue Levaquin as initiated emergency department - Add vancomycin for MRSA coverage due to the extensiveness of the pneumonia - Aggressive pulmonary toilet - Solu-Medrol 40 every 8 - I-S and Acapella - COVID/flu/RSV is negative - Check respiratory viral panel - Check strep pneumo and Legionella antigens - Continue oxygen at 2 L and wean as able - will need ambulatory pulse ox prior to discharge - Will check for autoimmune issues with ANCA and DEDRICK as well as ESR, CRP due to marked anemia in conjunction with the above and ongoing fevers and rigors for months - Consult pulmonary medicine with the extensiveness of her pneumonia on imaging Hypokalemia - 60 mill equivalents p.o. potassium - Recheck in a.m. - Check a magnesium level Acute hypotension - Has been fluid responsive and maps have all been greater than 65 - Cultures are all pending - Antibiotics as above - Lactic acid was within normal limits Anemia - Recent baseline is unknown - Check iron studies - check ferritin - Check reticulocyte count - Suspect may be related to the acute illness above Transaminitis - Suspect related to the above - Will trend - No current further workup needed at this time Tobacco abuse - Recommend cessation - Nicotine patch available DVT Prophylaxis - Lovenox subcu daily CODE STATUS - Verified is full code on admission Charges/Coding Visit Charges Inpatient E&M: 27419 Init Hosp L3 11/06/242018 <Electronically signed by Shayy Dodson DO> Cosigner Signature (if applicable): CC: Dr. Shayy Dodson DO; No Primary Care Physician~ Signed [facility] Work Phone: 1(770) 555-508706-04-2025 Consult note Author Walt Krishnan [facility] Note Date/Time November 06, 2024 6:48p m [facility] Medical Records Department [address] [place] [id number] Consultation - Brush Stainer 11/06/24 1831 MR#: [id number] Acct: [id number] Name: ALMA DELIA DOW Rep #:[id number] : 1985 38 From: Walt Wyman PCP: Care Physician,No Primary Status :ADM IN Location: [place] [id number] HPI Consult Data Date of Consult: 11/06/24 HPI Narrative HPI Narrative: ALMA DELIA DOW, is a 38 F who presents [facility] Medical History Anemia Migraine headache Gastric reflux Hoarseness Hx of sepsis Smoker Abnormal results of thyroid function studies Malaise and fatigue Unspecified voice and resonance disorder Hair loss Insomnia Home Medications ?Medication ?Instructions ?Recorded ?Last Taken ?Type NK 11/06/24 Unknown History Allergy/AdvReac Type Severity [...] Oxygen Flow Rate (L/min) 3 11/06/24 18:00 I&O: I&O Last 24 Hours 3 11/05/24 11/06/24 11/06/24 23:59 11:59 23:59 Intake Total 2150 / 2150 Output Total 500 / 500 Balance 1650 / 1650 I&O: Total Stay 3 11/06/24 11:14 thru 11/06/24 [...] Ml Vial.Neb. INHALATION Q2H PRN PRN SOB &/OR WHEEZING Albuterol/Ipratropium 3 ml 11/06/24 16:42 Ipratropium/Albuterol [...] mls @ 15 mls/hr 11/06/24 17:03 IV .[id number] PRN Saline Flush Sodium Chloride 250 mls @ 15 mls/hr 11/06/24 17:03 IV .[id number] PRN Additional IVPB Infusion Methylprednisolone 40 mg [...] of Deb 15.5 H, Plt Count 155, MPV11.0, Immature Gran % (Auto) 0.400, Neut % (Auto) 90.1 H, Lymph % (Auto) 4.9 L, Roosevelt % (Auto) 3.4, Eos % (Auto) 1.0, Baso % (Auto) 0.2, Absolute Neuts (auto) 4.6, Absolute Lymphs (auto) 0.25 L, Nucleated RBC % 0, Sodium 135, Potassium 2.8L, Chloride 100, Carbon Dioxide 21.8, Anion Gap 13, BUN 13, Creatinine 0.80, Estim Creat Clear Calc 68.49, Est GFR (MDRD) Non-Af 97, BUN/Creatinine Ratio 16.6, Glucose 105 H, Lactic Acid < 1.0, Calcium 9.0, Total Bilirubin 0.45, AST 74 H, ALT 42 H, Alkaline Phosphatase 429 H, Total Protein 6.5, Albumin 3.2 L, Globulin 3.3, Albumin/Globulin Ratio 1.0 11/06/24 17:23: ESR 28, Retic Count 1.09, Immature Retic Fraction 9.90, Retic Hgb Equivalent 29.6 L, Iron Saturation 10.0 L, Ferritin 1130 H, Procalcitonin 0.53 H, BLOSSOM-1 Antibody TNP, Sm (Olson) Antibody TNP, WORK FORCE ADVISOR Antibody TNP, Scl-70 Scleroderma Ab TNP, Antichromatin Antibodies TNP, Centromere B Antibody TNP 11/06/24 : Urine Test Negative Micro: Microbiology 11/06/24 Unknown Urine, Random Legionella Antigen - Final 11/06/24 Unknown Urine, Random Streptococcus pneumoniae Antigen (M - Final 11/06/24 11:49 Mucosa - Nose SARS-CoV-2, Influenza & RSV (PCR) - Final Imaging Radiology Impression Chest X-Ray 11/06/24 11:55 IMPRESSION: Lungs are relatively hypoinflated, but appear clear of acute disease. No pleural effusion or pneumothorax is noted. The cardiomediastinal silhouette is within the normal range. Mild thoracic spine dextroscoliosis is seen, with mild degenerative changes present. No acute osseous changes seen. Reading Location: [address] Chest CTA 11/06/24 15:06 IMPRESSION: 1. No pulmonary embolism is identified. Some of the distal pulmonary arteries cannot be evaluated due to suboptimal opacification. 2. Multifocal ground-glass attenuation of both lungs, likely multifocal pneumonia. Reading Location: [id number] Assessment and Plan . Assessment and plan: HPI 38 yo previously healthy female smoker admitted 11/06/24 w/ several weeks to months of cough, dyspnea, fever. She says she had influenza infection in Jun, initially felt improved at that time, but soon began to have recurrent symptoms including dry cough, malaise, ARNOLD, and intermittent fevers. She apparently has not sought medical attention until a few weeks ago at which time she was prescribed ABX and prednisone. She says that she did not feel much better when taking these. She has not had much in the wasof associated symptoms - no CP, no edema, no hemoptysis, minimal sputum. She is a smoker. She drinks alcohol occasionally. She denies illicit drug use. No significant travel. No known ill contacts. No reported exposures. 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 She does not report known illnesses and does not report taking any medications routinely. Noted fever in the ED. She is breathing 3 LPM O2 comfortably at rest. She appears ill, but NAD and is not toxic. Lab reveals anemia as well as elevated LFT, w/ significant elevation alkaline phosphatase. Micro studies are pending. CT chest reveals extensive bilateral alveolar infiltrates in all lobes. No significant LULU, no effusions. She has been started on empiric anti-bacterials and IV steroids. EXAM GEN NAD VS as above HEENT o/p clear NECK supple COR RRR CHEST bronchial ABD soft EXT no edema SKIN w/d EL NF ASSESSMENT/PLAN 1. Subacute febrile illness w/ extensive bilateral alveolar infiltrates on CT chest. Extensive DDX at this time. Micro studies are pending. At this time, check UA, LDH, p-BNP, UDS, HIV serology. Await micro studies. Follow clinically on empiric treatment. Anticipate a high likelihood she will require diagnostic bronchoscopy at some point soon. The entirety of this encounter was done via Telemedicine 11/06/241847 <Electronically signed by Walt Krishnan MD> Cosigner Signature (if applicable): CC: No Primary Care Physician~ Signed [facility] Work Phone: [phone] 431-677906-04-2025 History and physical note [facility] Medical Records Department [address] [place] [address] H&P Exam - Hospitalist 11/06/24 1549 MR#: [id number] Acct: [id number] Name: ALMA DELIA DOW Rep #:[id number] : 1985 38 From: Shayy Dodson DO PCP: Care Physician,No Primary Status :ADM IN [facility] HPI - General General Date of Admission: 11/06/24 Date of Service: 11/06/24 Chief Complaint: Shortness of breath HPI Narrative ALMA DELIA DOW, is a 38 F who presented to the emergency department [facility] on 11/06/2024 with a chief complaint of shortness of breath, nonproductive cough and fevers. She reports her Tmax at home has been 105 degrees. She reports that she has been acutely ill for about 3 weeks but has been feeling poorly for about 4 months. She states she has had intermittent fevers and cough.She sought attention for the first time for [...] autoimmune disease. She denies any rashes but doescomplain of myalgias particularly in her legs. Vital signs on presentation showed a temperature of 98.4, heart rate 117, respiratory 16, blood pressure was 94/64 and pulse ox was 98% on room air initially. CBC shows a normal white count but it does show an anemia with a hemoglobin of 9.2. Baseline recently is unclear. She has a history of thromb ocytopenia but currently her platelet count is elevated at 155,000. Chemistry panel shows significant hypokalemia with potassium of 2.8 but was otherwise unremarkable. Lactic acid was less than 1. LFTs are slightly abnormal with an AST of 74 and an ALT of 42. Alk phos is elevated at 429,000. Chest x-ray was overtly unremarkable. CTA was performed due to her symptoms andshowed no PE but multifocalground glass attenuation in both lungs consistent with multifocal pneumonia. She was treated with Levaquin emergency department and request for admission wasmade. [facility] Medical History Anemia Migraine headache Gastric reflux Hoarseness Hx of sepsis Smoker Abnormal results of thyroid function studies Malaise and fatigue Unspecified voice and resonance disorder Hair loss Insomnia Home Medications ?Medication ?Instructions ?Recorded ?Last Taken ?Type NK 11/06/24 Unknown History Allergy/AdvReac Type Severity [...] cough, dyspnea, excessive phlegm production, productive cough, shortnessof breath at rest, shortness of breath with exertionand wheezing; Denies hemoptysis or other Gastrointestinal Gastrointestinal: Reports nausea; Denies abdominal pain, coffee ground emesis, constipation, diarrhea, dyspepsia, hematemesis, hematochezia, loose stools, melena, vomiting or other Genitourinary Genitourinary: Denies burning urination, difficulty urinating, dysuria, hematuria, nocturia, urinary frequency, urinary hesitancy, urinary incontinence,urinary urgency or other Musculoskeletal Musculoskeletal: Reports myalgias; Denies arthralgias, back pain, joint pain, joint stiffness, joint swelling, neck pain or other Neurologic Neurologic: Denies abnormal gait, abnormal speech, confusion, disequilibrium, dizziness, focal weakness, headache(s), numbness, paresthesias, seizure-like activity, seizures, syncope, tingling, tremor(s) or other Psychiatric Psychiatric: Denies anxiety, depression, homicidal ideation, suicidal ideation or other Endocrine Endocrinology: Denies change in body appearance, cold intolerance, excessive sweating, heat intolerance, polydipsia, polyuria or other Hematologic/Lymphatic Hematologic/Lymphatic: Denies anemia, easy bleeding, easy bruising, lymphadenopathy or other Allergic/Immunologic Allergic/Immunologic: Denies rhinitis, hives, eczemia, asthma or other Vital Signs Vital Signs Vital Signs: 11/06/24 11:15 11/06/24 12:07 11/06/24 [...] Ox 99 96 Oxygen Delivery Method Room Air Room Air Weight Weight: 54.1 kg Body Mass Index (BMI) 23.3 Physical Exam Const alert, oriented x3 and average body habitus; Negative for no apparent distress or healthy appearing Constitutional Narrative: Ill-appearing, middle-aged, white female, appears older than stated age, lying in bed, currently has rigors, appears toxic, significant other at bedside General Appearance: cooperative HEENT normocephalic, head/scalp atraumatic, hearing grossly normal bilaterally and moist oral mucous membranes HEENT Narrative: Mallampati 2, no thrush Eyes conjunctivae normal Eyes Narrative: No scleral icterus, conjunctiva are mildly pale bilateral Neck supple Neck Narrative: Trachea midline Resp no retractions, no use of accessory muscles and No clear to auscultation bilaterally Resp Narrative: , Tachypneic scattered crackles and end expiratory wheezes with adventitious sounds noted throughout Auscultation: crackles and wheezes; Negative for rhonchi Cardio regular rhythm, S1 normal heart sound, S2 normal heart sound, no murmurs, no rub, no gallops and noclicks Cardio Narrative: Tachycardia GI normal to inspection, nondistended, normoactive bowel sounds and soft to palpation Extremity no clubbing, cyanosis or edema Extremity Narrative: 2+ pedal and radial pulses Neuro oriented x3, moves all extremities and no focal motor deficits Neuro Narrative: Appears generally weak Speech: speech normal Psych Psych Narrative: Affect is flat but appropriate for current situation Results Lab / Micro Data 11/06/24 11:49 11/06/24 11:49 Labs: Laboratory Results - last 24 hr 11/06/24 11:49: WBC 5.1, RBC 3.08 L, Hgb 9.2 L, Hct 27.3 L, MCV 88.6, MCH 29.9, MCHC 33.7, RDW Std Deviation 50.0 H, RDW Coeff of Deb 15.5 H, Plt Count 155, MPV11.0, Immature Gran % (Auto) 0.400, Neut % (Auto) 90.1 H, Lymph % (Auto) 4.9 L, Roosevelt % (Auto) 3.4, Eos % (Auto) 1.0, Baso % (Auto) 0.2, Absolute Neuts (auto) 4.6, Absolute Lymphs (auto) 0.25 L, Nucleated RBC % 0, Sodium 135, Potassium 2.8L, Chloride 100, Carbon Dioxide 21.8, Anion Gap 13, BUN 13, Creatinine 0.80, Estim Creat Clear Calc 68.49, Est GFR (MDRD) Non-Af 97, BUN/Creatinine Ratio 16.6, Glucose 105 H, Lactic Acid < 1.0, Calcium 9.0, Total Bilirubin 0.45, AST 74 H, ALT 42 H, Alkaline Phosphatase 429 H, Total Protein 6.5, Albumin 3.2 L, Globulin 3.3, Albumin/Globulin Ratio 1.0 Micro: Microbiology 11/06/24 11:49 Mucosa - Nose SARS-CoV-2, Influenza & RSV (PCR) - Final Imaging Radiology Impression Chest X-Ray 11/06/24 11:55 IMPRESSION: Lungs are relatively hypoinflated, but appear clear of acute disease. No pleural effusion or pneumothorax is noted. The cardiomediastinal silhouette is within the normal range. Mild thoracic spine dextroscoliosis is seen, with mild degenerative changes present. No acute osseous changes seen. Reading Location: [address] Assessment & Plan Assessment/Plan (1) Hypoxia: (2) Acute hypotension: (3) Bilateral interstitial pneumonia: (4) Anemia: (5) Hypokalemia: PLAN: Plan Hypoxia secondary to bilateral interstitial pneumonia - CT is markedly abnormal - With fevers suspect this is bilateral pneumonia - Check MRSA PCR - Continue Levaquin as initiated emergency department - Add vancomycin for MRSA coverage due to the extensiveness of the pneumonia - Aggressive pulmonary toilet - Solu-Medrol 40 every 8 - I-S and Acapella - COVID/flu/RSV is negative - Check respiratory viral panel - Check strep pneumo and Legionella antigens - Continue oxygen at 2 L and wean as able - will need ambulatory pulse ox prior to discharge - Will check for autoimmune issues with ANCA and DEDRICK as well as ESR, CRP due to marked anemia in conjunction with the above and ongoing fevers and rigors for months - Consult pulmonary medicine with the extensiveness of her pneumonia on imaging Hypokalemia - 60 mill equivalents p.o. potassium - Recheck in a.m. - Check a magnesium level Acute hypotension - Has been fluid responsive and maps have all been greater than 65 - Cultures are all pending - Antibiotics as above - Lactic acid was within normal limits Anemia - Recent baseline is unknown - Check iron studies - check ferritin - Check reticulocyte count - Suspect may be related to the acute illness above Transaminitis - Suspect related to the above - Will trend - No current further workup needed at this time Tobacco abuse - Recommend cessation - Nicotine patch available DVT Prophylaxis - Lovenox subcu daily CODE STATUS - Verified is full code on admission Charges/Coding Visit Charges Inpatient E&M: 52677 Init Hosp L3 11/06/242018 Cosigner Signature (if applicable): CC: Dr. Shayy Dodson, DO; No Primary Care Physician~ Signed [facility]06-04-2025 Consult note [facility] Medical Records Department [address] [place] [address] Consultation - Brush Stainer 11/06/24 1831 MR#: [id number] Acct: [id number] Name: ALMA DELIA DOW Rep #:[id number] : 1985 38 From: Walt Wyman PCP: Care Physician,No Primary Status :ADM IN Location: [place] [address] HPI Consult Data Date of Consult: 11/06/24 HPI Narrative HPI Narrative: ALMA DELIA DOW, is a 38 F who presents [facility] Medical History Anemia Migraine headache Gastric reflux Hoarseness Hx of sepsis Smoker Abnormal results of thyroid function studies Malaise and fatigue Unspecified voice and resonance disorder Hair loss Insomnia Home Medications ?Medication ?Instructions ?Recorded ?Last Taken ?Type NK 11/06/24 Unknown History Allergy/AdvReac Type Severity [...] Oxygen Flow Rate (L/min) 3 11/06/24 18:00 I&O: I&O Last 24 Hours 3 11/05/24 11/06/24 11/06/24 23:59 11:59 23:59 Intake Total 2150 / 2150 Output Total 500 / 500 Balance 1650 / 1650 I&O: Total Stay 3 11/06/24 11:14 thru 11/06/24 [...] Ml Vial.Neb. INHALATION Q2H PRN PRN SOB &/OR WHEEZING Albuterol/Ipratropium 3 ml 11/06/24 16:42 Ipratropium/Albuterol Sulfate 3 Ml Ampul.Neb INHALATION Q4H.RT SHANIA Enoxaparin Sodium 40 mg 11/07/24 10:00 Enoxaparin 40 Mg/0.4 Ml Syringe SC DAILY SHANIA Guaifenesin 1,200 mg 11/06/24 22:00 Guaifenesin 1,200 Mg Tablet PO BID [facility] Levofloxacin 750 mg in 150 mls @ 100 mls/hr 11/07/24 10:00 Levaquin Iv IV 11/14/24 10:01 Q24 SHANIA Sodium Chloride 250 mls @ 15 mls/hr 11/06/24 17:03 IV .[id number] PRN Saline Flush Sodium Chloride 250 mls @ 15 mls/hr 11/06/24 17:03 IV .[id number] PRN Additional IVPB Infusion Methylprednisolone 40 mg 11/06/24 22:00 Methylprednisolone 40 Mg/Ml Vial IV Q8 SHANIA Nicotine 21 mg 11/07/24 10:00 Nicotine 21 Mg Patch TD DAILY [facility] Ondansetron HCl 4 mg 11/06/24 16:42 Ondansetron [...] of Deb 15.5 H, Plt Count 155, MPV11.0, Immature Gran % (Auto) 0.400, Neut % (Auto) 90.1 H, Lymph % (Auto) 4.9 L, Roosevelt % (Auto) 3.4, Eos % (Auto) 1.0, Baso % (Auto) 0.2, Absolute Neuts (auto) 4.6, Absolute Lymphs (auto) 0.25 L, Nucleated RBC % 0, Sodium 135, Potassium 2.8L, Chloride 100, Carbon Dioxide 21.8, Anion Gap 13, BUN 13, Creatinine 0.80, Estim Creat Clear Calc 68.49, Est GFR (MDRD) Non-Af 97, BUN/Creatinine Ratio 16.6, Glucose 105 H, Lactic Acid < 1.0, Calcium 9.0, Total Bilirubin 0.45, AST 74 H, ALT 42 H, Alkaline Phosphatase 429 H, Total Protein 6.5, Albumin 3.2 L, Globulin 3.3, Albumin/Globulin Ratio 1.0 11/06/24 17:23: ESR 28, Retic Count 1.09, Immature Retic Fraction 9.90, Retic Hgb Equivalent 29.6 L, Iron Saturation 10.0 L, Ferritin 1130 H, Procalcitonin 0.53 H, BLOSSOM-1 Antibody TNP, Sm (Olson) Antibody TNP, [employer] Antibody TNP, Scl-70 Scleroderma Ab TNP, Antichromatin Antibodies TNP, Centromere B Antibody TNP 11/06/24 : Urine Test Negative Micro: Microbiology 11/06/24 Unknown Urine, Random Legionella Antigen - Final 11/06/24 Unknown Urine, Random Streptococcus pneumoniae Antigen (M - Final 11/06/24 11:49 Mucosa - Nose SARS-CoV-2, Influenza & RSV (PCR) - Final Imaging Radiology Impression Chest X-Ray 11/06/24 11:55 IMPRESSION: Lungs are relatively hypoinflated, but appear clear of acute disease. No pleural effusion or pneumothorax is noted. The cardiomediastinal silhouette is within the normal range. Mild thoracic spine dextroscoliosis is seen, with mild degenerative changes present. No acute osseous changes seen. Reading Location: [id number] Chest CTA 11/06/24 15:06 IMPRESSION: 1. No pulmonary embolism is identified. Some of the distal pulmonary arteries cannot be evaluated due to suboptimal opacification. 2. Multifocal ground-glass attenuation of both lungs, likely multifocal pneumonia. Reading Location: [id number] Assessment and Plan . Assessment and plan: HPI 38 yo previously healthy female smoker admitted 11/06/24 w/ several weeks to months of cough, dyspnea, fever. She says she had influenza infection in Jun, initially felt improved at that time, but soonbegan to have recurrent symptoms including dry cough, malaise, ARNOLD, and intermittent fevers. She apparently has not sought medical attention until a few weeks ago at which time she was prescribed ABXand prednisone. She says that she did not feel much better when taking these. She has not had much in the wasof associated symptoms - no CP, no edema, no hemoptysis, minimal sputum. She is a smoker. She drinks alcohol occasionally. She denies illicit drug use. No significant travel. No known ill contacts. No reported exposures. 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 She does not report known illnesses and does not report taking any medications routinely. Noted fever in the ED. She is breathing 3 LPM O2 comfortably at rest. She appears ill, but NAD and is not toxic. Lab reveals anemia as well as elevated LFT, w/ significant elevation alkaline phosphatase. Micro studies are pending. CT chest reveals extensive bilateral alveolar infiltrates in all lobes. No significant LULU, no effusions. She has been started on empiric anti-bacterials and IV steroids. EXAM GEN NAD VS as above HEENT o/p clear NECK supple COR RRR CHEST bronchial ABD soft EXT no edema SKIN w/d EL NF ASSESSMENT/PLAN 1. Subacute febrile illness w/ extensive bilateral alveolar infiltrates on CT chest. Extensive DDX at this time. Micro studies are pending. At this time, check UA, LDH, p-BNP, UDS, HIV serology. Await micro studies. Follow clinically on empiric treatment. Anticipate a high likelihood she will require diagnostic bronchoscopy at some point soon. The entirety of this encounter was done via Telemedicine 11/06/24 6795 Cosigner Signature (if applicable): CC: No Primary Care Physician~ Signed [facility]06-04-2025 Discharge summary Author Parish Frias [facility] Note Date/Time November 06, 2024 3:45p m [facility] Medical Records Department [address] [place] [address] Emergency Department Summary 11/06/24 MR#: [id number] Acct: [id number] Name: ALMA DELIA DOW Rep #:[id number] : 1985 38 From: Parish Frias MD PCP: Care Physician,No Primary Status :REG ER Location: ED HPI History of Present Illness Chief Complaint: Shortness of Breath Detail of Chief Complaint: Shortness of breath, nonproductive cough presently, documented Tmax 105.0 ? Informant: patient and spouse/S.O. Onset/Context/Timing Onset: Weeks [...] a smoker. She was seen at the [facility] urgent care and diagnosed with a clinical pneumonia. Prior similar symptoms: Yes Recent Illness/Hospitalization: Yes PFSH PFS Medical History Anemia Migraine headache Gastric reflux Hoarseness Hx of sepsis Smoker Abnormal results of thyroid function studies Malaise and fatigue Unspecified voice and resonance disorder Hair loss Insomnia Home Medications ?Medication ?Instructions ?Recorded ?Last Taken ?Type NK 11/06/24 Unknown History Allergy/AdvReac Type Severity [...] Reports cold intolerance and heat intolerance Hematologic/Lymphatic Hematologic/Lymphatic: Reports systems reviewed and no addt'l complaints, exceptas documented EXAM Physical Exam Const Vital Signs: [...] Ox 99 96 Oxygen Delivery Method Room Air Room Air Positive well nourished and well developed General Appearance ED: well developed and NAD; Negative for cyanotic, diaphoretic or pallor HEENT Reports dry mucous membranes Negative for trauma or tenderness Mouth ED: Yes dry mucous membranes Mouth: dry mucous membranes Eyes PERRL and EOMs intact bilaterally General Eye ED: Negative for pale conjunctiva or scleral icterus Neck no lymphadenopathy, supple and no JVD Chest Wall inspection of chest normal and palpation of chest normal Resp normal respiratory effort Auscultation: wheezes expiratory wheezes and scattered wheezes (Predominantly lower lung anne) Cardio regular rhythm, S1 normal heart sound, S2 normal heart sound and no murmurs Rate: tachycardic GI normal to inspection, nondistended, normoactive bowel sounds, non-tender, non-distended and no masses; Negative for hepatosplenomegaly Back/Spine no CVA tenderness Extremity normal to inspection General Extremety ED: Negative for edema or tenderness General Extremity: Negative for edema Neuro oriented x3 and CN's II-XII intact bilaterally Sensorium / Orientation: alert Psych mental status grossly normal Skin Skin Narrative: Patient has a lenticular rash. Capillary refill is delayed. General Skin Exam: Negative for jaundice or pallor MDM MDM MDM Narrative Medical decision making narrative: The patient having symptoms for 3 weeks fever up to 105 with mild arthralgias may represent a viral infection recent antibiotics did not help. Since she is tachycardic mottled with delayed capillary fill 1 L of normal saline was ordered. Sepsis workup was undertaken. Because she is wheezing albuterol was ordered. Patient was seen by orthopedics in 2023 and for wrist problems by Dr. Nitin Scott and Dr. Reece respectively. She was seen by Dr. Shiva Knott for thyroid abnormality. She was seen by [facility] February 2019 for cat bite. And she was admitted in January 2019 for adverse drug reaction and Dr. Arndt's note was reviewed. History & Record Review Additional record(s) reviewed:: Prior inpatient record, Prior outpatient record,Prior ED visit and Prior labs Lab Data Attestation: I reviewed the patient's lab results. Lab results narrative: CBC is normal. Differential reveals a mild shift. H&H is 9.2 and 27.3 with normal indices. Most recent hemoglobin was 13 5 and 38.7 on January 03, 2019. Lactate is less than 1. Electrolyte panel is unremarkable. Liver enzymes are slightly elevated 74 and 42. Alkaline phosphatase elevated at 429. Labs: Laboratory Results - last 24 hr 11/06/24 11:49 WBC 5.1 RBC 3.08 L Hgb 9.2 L Hct 27.3 L MCV 88.6 MCH 29.9 MCHC 33.7 RDW Std Deviation 50.0 H RDW Coeff of Deb 15.5 H Plt Count 155 MPV 11.0 Immature Gran % (Auto) 0.400 Neut % (Auto) 90.1 H Lymph % (Auto) 4.9 L Roosevelt % (Auto) 3.4 Eos % (Auto) 1.0 Baso % (Auto) 0.2 Absolute Neuts (auto) 4.6 Absolute Lymphs (auto) 0.25 L Nucleated RBC % 0 Sodium 135 Potassium 2.8 L Chloride 100 Carbon Dioxide 21.8 Anion Gap 13 BUN 13 Creatinine 0.80 Estim Creat Clear Calc 68.49 Est GFR (MDRD) Non-Af 97 BUN/Creatinine Ratio 16.6 Glucose 105 H Lactic Acid < 1.0 Calcium 9.0 Total Bilirubin 0.45 AST 74 H ALT 42 H Alkaline Phosphatase 429 H Total Protein 6.5 Albumin 3.2 L Globulin 3.3 Albumin/Globulin Ratio 1.0 Rapid antigen for COVID, RSV and influenza was negative. Radiography Chest X-Ray - ED: 2 View and Read by ED Physician (Independently reviewed interpreted by me 46 as negative for any acute process. Question may be some increased interstitial markings near the right heart border. Cardiac size is normal. Hilum is normal. There is no evidence of obvious infiltrate, effusion. There is no pneumothorax. Osseous stru) Diagnostic Testing: Clinical Impression(s) from Imaging Studies Chest X-Ray 11/06/24 11:55 IMPRESSION: Lungs are relatively hypoinflated, but appear clear of acute disease. No pleural effusion or pneumothorax is noted. The cardiomediastinal silhouette is within the normal range. Mild thoracic spine dextroscoliosis is seen, with mild degenerative changes present. No acute osseous changes seen. Reading Location: [address] Management Discussion w/another healthcare provider: Hospitalist (Case discussed with hospitalist. Full admit PCU. Antibiotics were changed after discussion with Dr. Shayy Dodson) Treatment and Re-Evaluation :: Patient was reassessed at 1350. First liter is infused. Her blood pressure is lower. Her systolic is 87. Second liter was ordered wide open. Comments:: Patient was reassessed at 1500. Blood pressure is 106. Pulse ox is 90 to 93% with a good waveform. Amatory pulse ox was ordered. Vital Sign Attestation:: Patient pulse ox was 80% with ambulation. In light of the fact that she had a normal chest x-ray is hypoxic now and has had tachycardia CTA of the chest was obtained to rule out PE. CTA of the chest reveals multilobar pneumonia. Initially ordered Rocephin and azithromycin. After speaking with the hospitalist Dr. Dodson she requested levofloxacin. Critical Care Time Critical Care Time: Yes Critical care time (excluding procedures): 30-74 minutes (32), Including time spent: (History, physical, documentation, independent rotation laboratory results chest x-ray and CT, numerous repeat evaluations and treatment for hypotension), Discussing w/Patient &/or Family/Operations Administrator, Discussing w/Consultants and Arranging Admission or Transfer Discharge Plan Triage Chief Complaint: Shortness of Breath ED Provider: Parish Frias Dx/Rx/DC Orders Clinical Impression: Bilateral interstitial pneumonia, Acute hypotension, Hypoxia, Rigors Prescriptions: No Action NK Primary Care Provider: Care Physician,No Primary Referrals: Care Physician,No Primary [Primary Care Provider] - Print Language: Colombian Disposition Disposition: Acute Care Hospital [facility] What to do if you have Problems For any increased pain, shortness of breath, bleeding, nausea or vomiting, chestpain, or any unexpected problems, contact your Primary Care Provider. Call [facility] ([phone]) or report to the closest Emergency Room. Call 911 if necessary. 11/06/24 4695 <Electronically signed by Parish Frias MD> Cosigner Signature (if applicable): CC: No Primary Care Physician ~ Signed [facility] Work Phone: 1([phone]) [phone] Evaluation note* Diagnosis Onset Date Resolution Status Admit Date Acute hypotension acute November 3:43pm Anemia acute November 06, 2024 3:43pm Bilateral interstitial pneumonia acu te November 06, 2024 3:43pm HIV (human immunodeficiency virus infection) acute November 06, 2024 3 :43pm Hypokalemia acute November 06 3:43pm Hypoxia acute November 06, 2024 3:43pm Rigors acute November 06, 2024 3:43pm [facility] Work Phone: [phone] Evaluation note* Diagnosis Onset Date Resolution Status Admit Date HIV (human immunodeficiency virus infection) acute November 06, 2024 3 :43pm Acute hypotension resolved November 3:43pm Anemia resolved November 06, 2024 3:43pm Bilateral interstitial pneumonia res olved November 06, 2024 3:43pm Hypokalemia resolved November 06 3:43pm Hypoxia resolved November 06, 2024 3:43pm Rigors resolved November 06, 2024 3:43pm Acute prerenal azotemia acute J une 2024 3:54pm Bilateral interstitial pneumonia acu te November 20, 2024 3:54pm HIV (human immunodeficiency virus infection) acute November 20, 2024 3:54pm Hypochloremia acute November 20, 2024 3:54pm Hyponatremia acute November 20, 025 3:54pm Hypoxia acute November 20 3:54pm Iron deficiency anemia acute Ju 2024 3:54pm Neutropenia associated with infection acute November 20, 2024 3:54pm Nondiabetic hyperglycemia acute November 20, 2024 3:54pm Sepsis acute November 20 3:54pm Severe sepsis acute November 20, 2024 3:54pm [facility] Work Phone: [phone] 875-144206-04-2025 Radiology Diagnostic study note [facility] Imaging Services [address] [place] [id number] CTA Chest W/WO Contrast MR#: [id number] Acct: [id number] Name: ALMA DELIA DOW Zamzam Rep #: [id number] : 1985 F 38 From: Janette Davila MD PCP: Care Physician,No Primary Status: ADM IN Study:CTA Chest W/WO Contrast Date of Exam: 11/06/24 Exam# [id number] Ordering Dr: Kip Frias MD EXAM: CT Angiography Chest Without and With Intravenous Contrast CLINICAL INDICATION: SHORTNESS OF BREATH, HYPOXIA, HISTORY OF SMOKING A TECHNIQUE: Axial computed tomographic angiography images of the chest without and with intravenous contrast. This CT exam was performed using one or more of the following dose reduction techniques: automated exposure control,adjustment of the mA and/or kV according to [...] both lungs, likely multifocal pneumonia. Reading Location: [facility] CC: Dr. Parish Frias MD; No Primary Care Physician ~ Wallcovering Hanger: Signed [facility]06-04-2025 Discharge summary [facility] Medical Records Department [address] [place] [id number] Emergency Department Summary 11/06/24 MR#: [id number] Acct: [id number] Name: ALMA DELIA DOW Rep #:[id number] : 1985 38 From: Parish Frias MD PCP: Care Physician,No Primary Status :REG ER Location: ED HPI History of Present Illness Chief Complaint: Shortness of Breath Detail of Chief Complaint: Shortness of breath, nonproductive cough presently, documented Tmax 105.0 ? Informant: patient and spouse/S.O. Onset/Context/Timing Onset: Weeks [...] a smoker. She was seen at the [facility] urgent care and diagnosed with a clinical pneumonia. Prior similar symptoms: Yes Recent Illness/Hospitalization: Yes [facility] Medical History Anemia Migraine headache Gastric reflux Hoarseness Hx of sepsis Smoker Abnormal results of thyroid function studies Malaise and fatigue Unspecified voice and resonance disorder Hair loss Insomnia Home Medications ?Medication ?Instructions ?Recorded ?Last Taken ?Type NK 11/06/24 Unknown History Allergy/AdvReac Type Severity [...] Reports cold intolerance and heat intolerance Hematologic/Lymphatic Hematologic/Lymphatic: Reports systems reviewed and no addt'l complaints, exceptas documented EXAM Physical Exam Const Vital Signs: [...] Ox 99 96 Oxygen Delivery Method Room Air Room Air Positive well nourished and well developed General Appearance ED: well developed and NAD; Negative for cyanotic, diaphoretic or pallor HEENT Reports dry mucous membranes Negative for trauma or tenderness Mouth ED: Yes dry mucous membranes Mouth: dry mucous membranes Eyes PERRL and EOMs intact bilaterally General Eye ED: Negative for pale conjunctiva or scleral icterus Neck no lymphadenopathy, supple and no JVD Chest Wall inspection of chest normal and palpation of chest normal Resp normal respiratory effort Auscultation: wheezes expiratory wheezes and scattered wheezes (Predominantly lower lung anne) Cardio regular rhythm, S1 normal heart sound, S2 normal heart sound and no murmurs Rate: tachycardic GI normal to inspection, nondistended, normoactive bowel sounds, non-tender, non- distended and no masses; Negative for hepatosplenomegaly Back/Spine no CVA tenderness Extremity normal to inspection General Extremety ED: Negative for edema or tenderness General Extremity: Negative for edema Neuro oriented x3 and CN's II-XII intact bilaterally Sensorium / Orientation: alert Psych mental status grossly normal Skin Skin Narrative: Patient has a lenticular rash. Capillary refill is delayed. General Skin Exam: Negative for jaundice or pallor MDM MDM MDM Narrative Medical decision making narrative: The patient having symptoms for 3 weeks fever up to 105 with mild arthralgias may represent a viralinfection recent antibiotics did not help. Since she is tachycardic mottled with delayed capillary fill 1 L of normal saline was ordered. Sepsis workup was undertaken. Because she is wheezing albuterol was ordered. Patient was seen by orthopedics in 2023 and for wrist problems by Dr. Nitin Scott and Dr. Reece respectively. She was seen by Dr. Shiva Knott for thyroid abnormality. She was seen by [facility] February 2019 for cat bite. And she was admitted in January 2019 for adverse drug reaction and Dr. Arndt's note was reviewed. History & Record Review Additional record(s) reviewed:: Prior inpatient record, Prior outpatient record,Prior ED visit and Prior labs Lab Data Attestation: I reviewed the patient's lab results. Lab results narrative: CBC is normal. Differential reveals a mild shift. H&H is 9.2 and 27.3 with normal indices. Mostrecent hemoglobin was 13 5 and 38.7 on January 03, 2019. Lactate is less than 1. Electrolyte panel isunremarkable. Liver enzymes are slightly elevated 74 and 42. Alkaline phosphatase elevated at 429. Labs: Laboratory Results - last 24 hr 11/06/24 11:49 WBC 5.1 RBC 3.08 L Hgb 9.2 L Hct 27.3 L MCV 88.6 MCH 29.9 MCHC 33.7 RDW Std Deviation 50.0 H RDW Coeff of Deb 15.5 H Plt Count 155 MPV 11.0 Immature Gran % (Auto) 0.400 Neut % (Auto) 90.1 H Lymph % (Auto) 4.9 L Roosevelt % (Auto) 3.4 Eos % (Auto) 1.0 Baso % (Auto) 0.2 Absolute Neuts (auto) 4.6 Absolute Lymphs (auto) 0.25 L Nucleated RBC % 0 Sodium 135 Potassium 2.8 L Chloride 100 Carbon Dioxide 21.8 Anion Gap 13 BUN 13 Creatinine 0.80 Estim Creat Clear Calc 68.49 Est GFR (MDRD) Non-Af 97 BUN/Creatinine Ratio 16.6 Glucose 105 H Lactic Acid < 1.0 Calcium 9.0 Total Bilirubin 0.45 AST 74 H ALT 42 H Alkaline Phosphatase 429 H Total Protein 6.5 Albumin 3.2 L Globulin 3.3 Albumin/Globulin Ratio 1.0 Rapid antigen for COVID, RSV and influenza was negative. Radiography Chest X-Ray - ED: 2 View and Read by ED Physician (Independently reviewed interpreted by me 46 as negative for any acute process. Question may be some increased interstitial markings near the right heart border. Cardiac size is normal. Hilum is normal. There is no evidence of obvious infiltrate, effusion. There is no pneumothorax. Osseous stru) Diagnostic Testing: Clinical Impression(s) from Imaging Studies Chest X-Ray 11/06/24 11:55 IMPRESSION: Lungs are relatively hypoinflated, but appear clear of acute disease. No pleural effusion or pneumothorax is noted. The cardiomediastinal silhouette is within the normal range. Mild thoracic spine dextroscoliosis is seen, with mild degenerative changes present. No acute osseous changes seen. Reading Location: [address] Management Discussion w/another healthcare provider: Hospitalist (Case discussed with hospitalist. Full admit PCU. Antibiotics were changed after discussion with Dr. Shayy Dodson) Treatment and Re-Evaluation :: Patient was reassessed at 1350. First liter is infused. Her blood pressure is lower. Her systolic is 87. Second liter was ordered wide open. Comments:: Patient was reassessed at 1500. Blood pressure is 106. Pulse ox is 90 to 93% with a goodwaveform. Amatory pulse ox was ordered. Vital Sign Attestation:: Patient pulse ox was 80% with ambulation. In light of the fact that she had a normal chest x-ray is hypoxic now and has had tachycardia CTA of the chest was obtained to rule out PE. CTA of the chest reveals multilobar pneumonia. Initially ordered Rocephin and azithromycin. After speaking with the hospitalist Dr. Dodson she requested levofloxacin. Critical Care Time Critical Care Time: Yes Critical care time (excluding procedures): 30-74 minutes (32), Including time spent: (History, physical, documentation, independent rotation laboratory results chest x-ray and CT, numerous repeat evaluations and treatment for hypotension), Discussing w/Patient &/or Family/Operations Administrator, Discussing w/Consultants and Arranging Admission or Transfer Discharge Plan Triage Chief Complaint: Shortness of Breath ED Provider: Parish Frias Dx/Rx/DC Orders Clinical Impression: Bilateral interstitial pneumonia, Acute hypotension, Hypoxia, Rigors Prescriptions: No Action NK Primary Care Provider: Care Physician,No Primary Referrals: Care Physician,No Primary [Primary Care Provider] - Print Language: Colombian Disposition Disposition: Acute Care Hospital [facility] What to do if you have Problems For any increased pain, shortness of breath, bleeding, nausea or vomiting, chestpain, or any unexpected problems, contact your Primary Care Provider. Call [facility] ([phone]) or report tothe closest Emergency Room. Call 911 if necessary. 11/06/24 1541 Cosigner Signature (if applicable): CC: No Primary Care Physician ~ Signed [facility]06-04-2025 Discharge summary Author Parish Frias [facility] Note Date/Time November 06, 2024 3:45p m [facility] Medical Records Department [address] [place] [address] Emergency Department Summary 11/06/24 MR#: [id number] Acct: [id number] Name: ALMA DELIA DOW Rep #:[id number] : 1985 38 From: Parish Frias MD PCP: Care Physician,No Primary Status :REG ER Location: ED HPI History of Present Illness Chief Complaint: Shortness of Breath Detail of Chief Complaint: Shortness of breath, nonproductive cough presently, documented Tmax 105.0 ? Informant: patient and spouse/S.O. Onset/Context/Timing Onset: Weeks [...] a smoker. She was seen at the [facility] urgent care and diagnosed with a clinical pneumonia. Prior similar symptoms: Yes Recent Illness/Hospitalization: Yes [facility] Medical History Anemia Migraine headache Gastric reflux Hoarseness Hx of sepsis Smoker Abnormal results of thyroid function studies Malaise and fatigue Unspecified voice and resonance disorder Hair loss Insomnia Home Medications ?Medication ?Instructions ?Recorded ?Last Taken ?Type NK 11/06/24 Unknown History Allergy/AdvReac Type Severity [...] Reports cold intolerance and heat intolerance Hematologic/Lymphatic Hematologic/Lymphatic: Reports systems reviewed and no addt'l complaints, exceptas documented EXAM Physical Exam Const Vital Signs: [...] Ox 99 96 Oxygen Delivery Method Room Air Room Air Positive well nourished and well developed General Appearance ED: well developed and NAD; Negative for cyanotic, diaphoretic or pallor HEENT Reports dry mucous membranes Negative for trauma or tenderness Mouth ED: Yes dry mucous membranes Mouth: dry mucous membranes Eyes PERRL and EOMs intact bilaterally General Eye ED: Negative for pale conjunctiva or scleral icterus Neck no lymphadenopathy, supple and no JVD Chest Wall inspection of chest normal and palpation of chest normal Resp normal respiratory effort Auscultation: wheezes expiratory wheezes and scattered wheezes (Predominantly lower lung anne) Cardio regular rhythm, S1 normal heart sound, S2 normal heart sound and no murmurs Rate: tachycardic GI normal to inspection, nondistended, normoactive bowel sounds, non-tender, non-distended and no masses; Negative for hepatosplenomegaly Back/Spine no CVA tenderness Extremity normal to inspection General Extremety ED: Negative for edema or tenderness General Extremity: Negative for edema Neuro oriented x3 and CN's II-XII intact bilaterally Sensorium / Orientation: alert Psych mental status grossly normal Skin Skin Narrative: Patient has a lenticular rash. Capillary refill is delayed. General Skin Exam: Negative for jaundice or pallor MDM MDM MDM Narrative Medical decision making narrative: The patient having symptoms for 3 weeks fever up to 105 with mild arthralgias may represent a viral infection recent antibiotics did not help. Since she is tachycardic mottled with delayed capillary fill 1 L of normal saline was ordered. Sepsis workup was undertaken. Because she is wheezing albuterol was ordered. Patient was seen by orthopedics in 2023 and for wrist problems by Dr. Nitin Scott and Dr. Reece respectively. She was seen by Dr. Shiva Knott for thyroid abnormality. She was seen by me February 2019 for cat bite. And she was admitted in January 2019 for adverse drug reaction and Dr. Arndt's note was reviewed. History & Record Review Additional record(s) reviewed:: Prior inpatient record, Prior outpatient record,Prior ED visit and Prior labs Lab Data Attestation: I reviewed the patient's lab results. Lab results narrative: CBC is normal. Differential reveals a mild shift. H&H is 9.2 and 27.3 with normal indices. Most recent hemoglobin was 13 5 and 38.7 on January 03, 2019. Lactate is less than 1. Electrolyte panel is unremarkable. Liver enzymes are slightly elevated 74 and 42. Alkaline phosphatase elevated at 429. Labs: Laboratory Results - last 24 hr 11/06/24 11:49 WBC 5.1 RBC 3.08 L Hgb 9.2 L Hct 27.3 L MCV 88.6 MCH 29.9 MCHC 33.7 RDW Std Deviation 50.0 H RDW Coeff of Deb 15.5 H Plt Count 155 MPV 11.0 Immature Gran % (Auto) 0.400 Neut % (Auto) 90.1 H Lymph % (Auto) 4.9 L Roosevelt % (Auto) 3.4 Eos % (Auto) 1.0 Baso % (Auto) 0.2 Absolute Neuts (auto) 4.6 Absolute Lymphs (auto) 0.25 L Nucleated RBC % 0 Sodium 135 Potassium 2.8 L Chloride 100 Carbon Dioxide 21.8 Anion Gap 13 BUN 13 Creatinine 0.80 Estim Creat Clear Calc 68.49 Est GFR (MDRD) Non-Af 97 BUN/Creatinine Ratio 16.6 Glucose 105 H Lactic Acid < 1.0 Calcium 9.0 Total Bilirubin 0.45 AST 74 H ALT 42 H Alkaline Phosphatase 429 H Total Protein 6.5 Albumin 3.2 L Globulin 3.3 Albumin/Globulin Ratio 1.0 Rapid antigen for COVID, RSV and influenza was negative. Radiography Chest X-Ray - ED: 2 View and Read by ED Physician (Independently reviewed interpreted by me 46 as negative for any acute process. Question may be some increased interstitial markings near the right heart border. Cardiac size is normal. Hilum is normal. There is no evidence of obvious infiltrate, effusion. There is no pneumothorax. Osseous stru) Diagnostic Testing: Clinical Impression(s) from Imaging Studies Chest X-Ray 11/06/24 11:55 IMPRESSION: Lungs are relatively hypoinflated, but appear clear of acute disease. No pleural effusion or pneumothorax is noted. The cardiomediastinal silhouette is within the normal range. Mild thoracic spine dextroscoliosis is seen, with mild degenerative changes present. No acute osseous changes seen. Reading Location: [address] Management Discussion w/another healthcare provider: Hospitalist (Case discussed with hospitalist. Full admit PCU. Antibiotics were changed after discussion with Dr. Shayy Dodson) Treatment and Re-Evaluation :: Patient was reassessed at 1350. First liter is infused. Her blood pressure is lower. Her systolic is 87. Second liter was ordered wide open. Comments:: Patient was reassessed at 1500. Blood pressure is 106. Pulse ox is 90 to 93% with a good waveform. Amatory pulse ox was ordered. Vital Sign Attestation:: Patient pulse ox was 80% with ambulation. In light of the fact that she had a normal chest x-ray is hypoxic now and has had tachycardia CTA of the chest was obtained to rule out PE. CTA of the chest reveals multilobar pneumonia. Initially ordered Rocephin and azithromycin. After speaking with the hospitalist Dr. Dodson she requested levofloxacin. Critical Care Time Critical Care Time: Yes Critical care time (excluding procedures): 30-74 minutes (32), Including time spent: (History, physical, documentation, independent rotation laboratory results chest x-ray and CT, numerous repeat evaluations and treatment for hypotension), Discussing w/Patient &/or Family/Operations Administrator, Discussing w/Consultants and Arranging Admission or Transfer Discharge Plan Triage Chief Complaint: Shortness of Breath ED Provider: Parish Frias Dx/Rx/DC Orders Clinical Impression: Bilateral interstitial pneumonia, Acute hypotension, Hypoxia, Rigors Prescriptions: No Action NK Primary Care Provider: Care Physician,No Primary Referrals: Care Physician,No Primary [Primary Care Provider] - Print Language: Colombian Disposition Disposition: Acute Care Hospital [facility] What to do if you have Problems For any increased pain, shortness of breath, bleeding, nausea or vomiting, chestpain, or any unexpected problems, contact your Primary Care Provider. Call [facility] ([phone]) or report to the closest Emergency Room. Call 911 if necessary. 11/06/24 1545 <Electronically signed by Parish Frias MD> Cosigner Signature (if applicable): CC: No Primary Care Physician ~ Signed [facility] Work Phone: 1(561) 924-477106-04-2025 Radiology Diagnostic study note [facility] Imaging Services [address] [place] [address] Chest PA and Lateral MR#: [id number] Acct: [id number] Name: ALMA DELIA DOW Rep #: [id number] : 1985 F 38 From: Anselmo Mcarthur MD PCP: Care Physician,No Primary Status: REG ER Study:Chest PA and Lateral Date of Exam: 11/06/24 Exam# [id number] Ordering Dr: Kip Frias MD PROCEDURE: CHEST PA AND LATERAL [...] No acute osseous changes seen. Reading Location: [address] CC: Dr. Parish Frias MD; No Primary Care Physician ~ Wallcovering Hanger: Signed [facility]06-04-2025 Evaluation note* Diagnosis Onset Date Resolution Status Admit Date Acute hypotension acute November 42024 3:43pm Anemia acute November 06, 2024 3:43pm Bilateral interstitial pneumonia acu te November 06, 2024 3:43pm Hypoxia acute November 06, 2024 3:43pm Rigors acute November 06, 2024 3:43pm [facility] Work Phone: 1(785) 736-424508-12-2024 NoteHNO ID: [id number] Author: KENDRICK ACOSTA MD Service: ? Author Type: Physician Type: [...] DEVICE - BENZONATATE 100 MG CAPSULE Kendrick Acosta, [facility]08-12-2024 History of Present illness Narrative* Kendrick Acosta MD - 01/15/2024 6:51 PM EDT Patient presents with: Sore Throat: ST x [...] DEVICE - BENZONATATE 100 MG CAPSULE Kendrick Acosta MD documented in this encounterDoctors Hospital03-18-2024 NoteHNO ID: [id number] Author: DEL WU APRN.TRAILER TRUCK DRIVER Service: ? Author Type: Nurse Practitioner Type: [...] Breath. (Patient not taking: Reported on 04/23/2023) Lmebdwridmzcqot-Hiajeaiwd-TL (BROMFED DM) 2-30-10 mg/5 mL syrup Take 5-10 ml po q6h prn (Patient not taking: Reported on 03/17/2021) pseudoephedrine (SUDAFED) 30 mg tablet Take 1 tablet by mouth every 4 hours as needed. (Patient not taking: Reported on 03/17/2021) fluticasone (FLONASE) 50 mcg/actuation nasal spray Use 1 [place] in each nostril once daily. (Patient not [...] tenderness. No pain with (more content not included)...[facility]03-18-2024 History of Present illness Narrative* Del Wu APRN.[facility] - 08/21/2023 6:59 PM EDT Subjective HPI Nontoxic-appearing female presents urgent care chief complaint bilateral ear pain. Duration of symptoms 4 days. Associated symptoms bilateral ear discomfort. States recently got over the flu or a similar virus. Presents today for evaluation. Most bothersome symptom today is ear pressure. States hassome discomfort. Feels like ears are clogged. No ear trauma otorrhea loss hearing. Denies any feverbody aches chills productive cough chest pain shortness [...] 2 Puffs as instructed every 4 hours asneeded for Wheezing/Shortness of Breath. (Patient not taking: Reported on 04/23/2023) Edmdiqxmapelxbs-Ffllsgyux-FM (BROMFED DM) 2-30-10 mg/5 mL syrup Take 5-10 ml po q6h prn (Patient not taking: Reported on 03/17/2021) pseudoephedrine (SUDAFED) 30 mg tablet Take 1 tablet by mouth every 4 hours as needed. (Patient nottaking: Reported on 03/17/2021) fluticasone (FLONASE) 50 mcg/actuation nasal spray Use 1 [place] in each nostril once daily. (Patientnot taking: Reported on 04/23/2023) FAMILY HISTORY Problem [...] Wt 73.3 kg (161 lb 9.6 oz) LMP01/11/2021 SpO2 97% BMI 31.56 kg/m Review of [...] was educated on supportive therapies. Patient will followup with primary care provider as needed. Patient was instructed to immediately proceed to emergencyroom for any new, worsening, or symptoms lasting longer than anticipated. The patient's clinical presentation is otherwise unremarkable at this time. Based on exam and clinical finding, the patient is stable for discharge. Plan of care was discussed with patient. Patient verbalizes understanding and agrees to plan of care. This note was generated using [employer] software. It may contain errors in wording, punctuation, or spelling. Del Wu APRN.TR[employer]ER TRUCK DRIVER documented in this encounterDoctors Hospital11-19-2023 NoteHNO ID: [id number] Author: Marina Winchester APRN.LEO Service: ? Author Type: Nurse Practitioner Type: Progress Notes Filed: 04/23/2023 2:56 PM Note Text: This note was created using [employer] Subjective Alma Delia Dow is a 37 [...] Primary Relevant Medications cefdinir (OMNICEF) 300 mg capsuleOhiohealth Shelby Hospital11-19-2023 History of Present illness Narrative* Marina Winchester APRN.LEO - 04/23/2023 2:50 PM EST This note was created using [employer] Subjective Alma Delia Dow is a 37 [...] (OMNICEF) 300 mg capsule documented in this encounterDoctors Hospital06-15-2023 NotePap Smear Specimen AdequacyJune 2022 11:30amComment.Satisfactory for evaluation. Endocervical and/or squamous metaplasticcells (endocervical component)are present.[facility] INTERFACED A#[id number] HospitalComment on above:Satisfactory for evaluation. Endocervical and/or squamous metaplasticcells (endocervical component)are present.01-28-2021 History of Present illness Narrative* Aleksandra Dawson RT(R) - 01/28/2021 4:30 PM EDT Radiology Service Progress Note PATIENT NAME: Alma Delia Dow DATE OF SERVICE: January 28, 2021 TIME: 4:28 PM PATIENT IDENTITY VERIFICATION COMPLETED USING TWO (2) IDENTIFIERS: Name and Date of confirmedby patient verbally. FALL SCREENING: Has the patient [...] 28, 2021 4:28 PM documented in this encounterOhioHealth [facility] Hospitallt note Author Chidi Arellano [facility] Note Date/Time November 20, 2024 4:38 pm [facility] Medical Records Department [address] [place] [address] Consultation - Infectious Dx 11/20/24 1629 MR#: [id number] Acct: [id number] Name: ALMA DELIA DOW Rep #:[id number] : 1985 39 From: Chidi vivas MD PCP: LILI Taylor Status:ADM I N Location: ICU CVICU 4-1 Assessment & Plan Assessment/Plan (1) Hypoxia: (2) Bilateral interstitial pneumonia: (3) HIV (human immunodeficiency virus infection): PLAN: Recent dx of HIV/AIDS. No h/o ivdu. Treating empirically for PJP with clinda and primaquine. No new focal symptoms. Suspect IRIS as the cause but isat risk for other infections given immunosuppressed state. CD4 47, viral load 763k. Would check sputum cx, full resp pcr panel, and MRSA pcr. With PJP, would be at risk for pneumothorax but no change seen on cxr. Cont primaquine/clinda and biktarvy. Empiric vanc/zosyn. No sign of thrush on exam. If this is IRIS, treatment would be a short course of steroids. Will follow, thank you, d/w Dr. Frias and Tanya. HPI Consult Data Date of Consult: 11/20/24 HPI Narrative Reason for Consultation: fever HPI Narrative: ALMA DELIA DOW, is a 39 F with recent admit with new dx HIV/AIDS, treated for thrush and presumed PJP. Discharged on clinda/primaquine, fluconazole, cefdinir, and started biktarvy. Had been feeling better until one day of fever,mild increase in dry cough. No vision changes, no pain or difficulty swallowing. No sick contacts. No chest pain, abd pain, n/v/d. No new rash. Did scrape her knee recently, healing. Reports compliance with meds. Came to ED, had hypotension, plan is admit to icu. Full ROS performed and neg except as noted above. [facility] Medical History Anemia Migraine headache Gastric reflux Hoarseness Hx of sepsis Smoker Abnormal results of thyroid function studies Malaise and fatigue Unspecified voice and resonance disorder Hair loss Insomnia Home Medications ?Medication ?Instructions ?Recorded ?Last Taken ?Type bictegravir 50 mg-emtricitabine 1 tab PO DAILY #30 tab s 11/08/24 Unknown Rx 200 mg-tenofovir alafenam 25 mg tablet (Biktarvy) cefdinir 300 mg capsule 300 mg PO BID #10 caps 11/08 Unknown Rx clindamycin HCl 150 mg capsule 450 mg (3 x 150 mg) PO TID 19 days 11/08/24 Unknown Rx (Cleocin HCl) #171 caps fluconazole 100 mg tablet 100 mg PO DAILY 7 days #7 ta bs 11/08/24 Unknown Rx primaquine 26.3 mg (15 mg base) 52.6 mg (2 x 26.3 mg ( 15 mg base)) 11/08/24 Unknown Rx tablet PO DAILY 19 days #38 tabs lorazepam 0.5 mg tablet 0.5 mg PO BID PRN anxiety #6 tabs 11/09/24 Unknown Rx ondansetron HCl 8 mg tablet 8 mg PO Q8H PRN nausea and 11/09/24 Unknown Rx vomiting #10 tabs Allergy/AdvReac Type Severity Reaction Status Date / Time sulfamethoxazole (From Allergy Low Verified 11/20/24 13:38 Bactrim) neutrophils trimethoprim (From Bactrim) Allergy Low Verified 11/20/24 13:38 neutrophils Family History Mother Cancer Aunt Thyroid disorder Grandfather CVA (cerebral vascular accident) Parkinsons Surgical History Hx of foot surgery History of oral surgery History of appendectomy History of tonsillectomy Social History household members: significant other current occupational status: employed Smoking Status: Light Smoker (<10/day) alcohol intake: current alcohol intake frequency: a [...] auscultation bilaterally Auscultation: diminished lung sounds Cardio Rate: tachycardic GI soft to palpation, non-tender and non-distended Extremity General Extremity: Negative for edema Skin no rashes or lesions noted Neuro CN's II-XII intact bilaterally Lab / Micro Data Attestation: I reviewed the patient's lab results. 11/20/24 13:46 11/20/24 13:46 Labs: Laboratory Results - last 24 hr 11/20/24 13:46: WBC 3.3 L, RBC 2.91 L, Hgb 8.6 L, Hct 25.2 L, MCV 86.6, MCH 29.6, MCHC 34.1, RDW Std Deviation 49.8 H, RDW Coeff of Deb 15.8 H, Plt Count 228, MPV 10.5, Immature Gran % (Auto) 0.600, Neut % (Auto) 84.7 H, Lymph % (Auto) 4.9 L, Roosevelt % (Auto) 3.1, Eos % (Auto) 6.4 H, Baso % (Auto) 0.3, AbsoluteNeuts (auto) 2.8, Absolute Lymphs (auto) 0.16 L, Nucleated RBC % 0, DifferentialComment COMMENT, Sodium 132 L, Potassium 2.9 L, Chloride 97 L, Carbon Dioxide 19.8 L, Anion Gap 14, BUN 22 H, Creatinine 0.98, Estim Creat Clear Calc 55.36, Est GFR (MDRD) Non-Af 75, BUN/Creatinine Ratio 22.6 H, Glucose 134 H, Calcium 9.3 11/20/24 14:15: Lactate Dehydrogenase 648 H Imaging Radiology Impression Chest X-Ray 11/20/24 14:40 IMPRESSION: Multifocal bilateral areas of patchy airspace disease as described. Infectious process should be ruled out. Radiographic follow-up recommended. Reading Location: [place] [address] 11/20/24 1638 <Electronically signed by Chidi Arellano MD> Cosigner Signature (if applicable): CC: LILI Hudson~ Signed [facility] Work Phone: Discharge summary Author Pb Adams [facility] Note Date/Time November 09, 2024 12:56 pm [facility] Medical Records Department [address] [place] [address] Discharge Summary 11/09/24 1254 MR#: [id number] Acct: [id number] Name: ALMA DELIA DOW Rep #:[id number] : 1985 38 From: Pb Adams DO PCP: Care Physician,No Primary Status :ADM IN Location: [facility] [id number] Providers Date of Admission: 11/06/24 Primary Care Physician: No Primary Care Phys Consultations 11/06/24 16:42 Consult: Brush Stainer / Pulmonary Medicine Routine Consulting Provider: Intensivists/Pulmonary Med Reason for Consult: B interstitial infiltrates EMERGENT Consult: No Notified: Yes Date Notified: 11/06/24 Time Notified: 15:58 Method of Notification: Tele Med Consult placed 11/07/24 09:19 Consult: Infectious Disease Routine Consulting Provider: Chidi Arellano Reason for Consult: HIV + EMERGENT Consult: No MD Notified: Yes Date Notified: 11/07/24 Time Notified: 09:20 Method of Notification: Verbal Reason For Visit: HYPOXIA 2/2 CAP Diagnosis Discharge Diagnosis (1) Bilateral interstitial pneumonia: Status: Acute Code(s): J84.9 - Interstitial pulmonary disease, unspecified Plan: Diffuse bilaterally. Unclear type. Given the +HIV test, concern for Pneumocystisjiroveci infection. On vancomycin, clindamycin, fluconazole. Methylpred Methylpred, BDs, respiratory panel Blood culture pending autoimmune work ordered Endoscopy performed on 11/08 which was grossly normal DW Dr. Arellano on 11/08: ok for discharge on 11/09. Follow up with ID for results of the studies. Cefdinir for pneumonia. Fluconazole. Biktarvy. Primaquine (discussed w patient--not for malaria, but concern for PCP) (2) HIV (human immunodeficiency virus infection): Status: Acute Code(s): Z21 - Asymptomatic human immunodeficiency virus [HIV] infection status Plan: Concern for active infection, cannot rule out the possibility of AIDS at this time. ID consulted. CD4, viral load pending Plan VTE prophylaxis: LMWH. Medications at Discharge Home Medications bictegravir 50 mg-emtricitabine 200 mg-tenofovir alafenam 25 mg tablet (Biktarvy) 1 tab PO DAILY #30 tabs 11/08/24 cefdinir 300 mg capsule 300 mg PO BID #10 caps 11/08/24 clindamycin HCl 150 mg capsule (Cleocin HCl) 450 mg (3 x 150 mg) PO TID 19 days #171 caps 11/08/24 fluconazole 100 mg tablet 100 mg PO DAILY 7 days #7 tabs 11/08/24 primaquine 26.3 mg (15 mg base) tablet 52.6 mg (2 x 26.3 mg (15 mg base)) PO DAILY 19 days #38 tabs 11/08/24 Hospital Course Operations None Procedures Bronchoscopy Summary of Care Provided Minutes Spent on Discharge: 35 Medical Records Data Medical Nutrition Assessment Dietitian: Malnutrition Criteria Met Start: 11/07/24 10:31 Freq: Status: Active Protocol: Document 11/07/24 11:07 SB (Rec: 11/07/24 11:08 SB [id number]) Nutrition Malnutrition Evidence of Yes Malnutrition Exists Malnutrition (severe Chronic ): Evidenced By Suboptimal Energy Intake (Severe),Weight Loss (Severe) Clinical Problem Chronic Disease or Condition Related Malnutrition Etiology severe related to inadequate oral intake Signs/Symptoms as evidenced by PO meeting <75% of estimated nutrition needs x 4 months and 18% weight loss x 6 months. Status Active Problem Recommendation Dietitian Continue regular diet. Recommendations/ Pt denied ONS at this time, will ask again at time of Changes follow up if PO is still poor. Will order orange/red Gatorade per pt request. Will monitor weight trends. Weight / BMI Weight Weight: 55.8 kg Body Mass Index (BMI) 24.0 ABG / Lab / Microbiology Data 11/08/24 04:19 11/08/24 04:19 Laboratory: Laboratory Results - last 24 hr 11/07/24 15:14: Miscellaneous Test 2 Cancelled 11/08/24 11:37: Fluid Source BRONCHIAL LAVAGE, Fluid Color COLORLESS, Fluid Appearance CLOUDY, Fluid WBC 670, Fluid RBC 130, Fluid Tot Cell Count TNP, Fluid Neutrophils 84, Fluid Lymphocytes 8, Fluid Other Cells 8, Fl Pathologist Comment May follow Microbiology: Microbiology 11/08/24 11:37 Bronchial Lavage - Right Middle Lobe Respiratory Culture - Preliminary Presumptive C albicans 11/07/24 Unknown Urine, Clean Catch Chlamydia/Neisseria (PCR) - Final 11/07/24 11:21 Nasal Secretion MRSA (PCR) - Final 11/06/24 17:54 Mucosa - Nasopharyngeal Respiratory Panel (PCR) - Final 11/06/24 Unknown Urine, Random Legionella Antigen - Final 11/06/24 Unknown Urine, Random Streptococcus pneumoniae Antigen (M - Final 11/06/24 11:49 Mucosa - Nose SARS-CoV-2, Influenza & RSV (PCR) - Final D/C Instructions Discharge Diet: No restrictions DC O2, CPAP, BIPAP Needs Home O2 Discharge instructions: No Meaningful Use Info Meaningful Use Meaningful Use Diagnoses (Choose all that apply): None applicable Ischemic Stroke Statin Dosing Therapy Reference: STATIN DOSE THERAPY REFERENCE: * Patients > 75 years receive moderate or high dose statin therapy. * Patients 75 years or YOUNGER should receive HIGH intensity statin dose unless contraindicated. You will be required to document reason for non-treatment if statin daily dose does not meet guidelines. HIGH DOSE STATIN THERAPY DAILY Atorvastatin > than or = to 40 mg Rosuvastatin > than or = to 20 mg Amlodipine + Atorvastatin > than or = to 2.5/40 mg Ezetimibe + Simvastatin 10/80 mg Simvastatin 80mg Discharge Plan Admission Admit Date/Time: 11/06/24 15:43 Primary Reason for Your Visit: pneumonia Attending Provider: Pb Adams Primary Care Provider: Care Physician,No Primary Consulting Providers: Damian Lorenzo; Rick Charles; Kee Rodgers; Rangel Cardona; Martell Yin; Martin Rodriguez; Irving Torres; Krissy Wolfe; Miguel Butler; Jimmy Nelson; Juan Carlos Padilla; Maddie Hess; Nan Watson; Sabina Balderas; Davey Rivera; Wilmer Amin; Igor Fall; Carolynn Sandhukhdeep; Noah Peterson; Suhail Thorpe; Antwon Razo; Mark Coker; Walt Krishnan; Shayy Dodson; Chidi Arellano Discharge Orders/Prescriptions Prescriptions: New fluconazole 100 mg Tablet 100 mg PO DAILY 7 Days Qty: 7 0RF primaquine 26.3 mg (15 mg base) Tablet 52.6 mg PO DAILY 19 Days Qty: 38 0RF clindamycin HCl [Cleocin HCl] 150 mg capsule 450 mg PO TID 19 Days Qty: 171 0RF Biktarvy 50-200-25 mg tablet 1 tab PO DAILY Qty: 30 2RF cefdinir 300 mg capsule 300 mg PO BID Qty: 10 0RF [facility] - Within 2 Weeks Chidi Arellano MD [Med Staff - Active Staff] - Within 2 Weeks Care Physician,No Primary [Primary Care Provider] - Disposition Disposition (needs filled in before D/C Order can be placed): Home, Self Care Charges/Coding Visit Charges Inpatient E&M: 13947 Disch Hosp >30min 11/09/24 1256 <Electronically signed by Pb Adams DO> Cosigner Signature (if applicable): CC: Dr. Pb Adams DO; No Primary Care Physician~ Signed [facility] Work Phone: Evaluation noteNo assessment information available [facility] Work Phone: Evaluation note* Diagnosis Acute otitis media, right- Primary Unspecified otitis media [facility] Diagnosis Onset Date Resolution Status Fracture of distal end of left ulna acute Strain of left wrist acute Fracture of distal end of left ulna acute [facility] Work Phone: Evaluation note* Diagnosis Eustachian tube dysfunction, bilateral- Primary [facility] Diagnosis Sore throat- Primary Acute pharyngitis Acute cough Wheezing [facility] Diagnosis Acute pain of right shoulder Contusion of chest wall, unspecified laterality, initial encounter [facility] Additional Instructions Follow preprinted instructions from your surgeons office Implant Used?: Yes [facility] Work Phone: Reason for referral (narrative)* Diagnostic Procedure Only (Urgent) - Closed Specialty Diagnoses / Procedures Referred By Ricardo augustin Referred To Contact XR IMAGING Diagnoses Acute pain of right shoulder Contusion of chest wall, unspecified laterality, initial encounter Procedures XR RIBS/CHEST 3V AP RIB/OBLS/CXR RT X-RAY RIBS, CHEST 3+ VW Nalini Allen APRN.TRAILER TRUCK DRIVER [address] [place] [address] [place] [address] Referral ID Status Reason Start Date Expiration Date V isits Requested Visits Authorized Closed Auto-Generate d Referral 01/28/2021 02/27/2022 1 1 * Diagnostic Procedure Only (Urgent) - Closed Specialty Diagnoses / Procedures Referred By Ricardo augustin Referred To Contact XR IMAGING Diagnoses Acute pain of right shoulder Contusion of chest wall, unspecified laterality, initial encounter Procedures XR SHOULDER GENERAL 3V OR MORE AP/TRUE AP/OTHER RT X-RAY SHOULDER COMPLET MIN 2 VIEWS Nalini Allen APRN.TRAILER TRUCK DRIVER [address] [place] [address] [place] [address] Referral ID Status Reason Start Date Expiration Date V isits Requested Visits Authorized Closed Auto-Generate d Referral 01/28/2021 02/27/2022 1 1 [facility]No reason for referral information [facility] Work Phone: Reason for visit Narrative* Diagnostic Procedure Only (Urgent) - Closed Specialty Diagnoses / Procedures Referred By Contac t Referred To Contact XR IMAGING Diagnoses Acute pain of right shoulder Contusion of chest wall, unspecified laterality, initial encounter Procedures XR RIBS/CHEST 3V AP RIB/OBLS/CXR RT X-RAY RIBS, CHEST 3+ VW Nalini Allen, ENGINEER PROCESS.TRAILER TRUCK DRIVER [address] [facility] [address] [place] [id number] Referral ID Status Reason Start Date Expiration Date V isits Requested Visits Authorized [id number] Closed Auto-Generate d Referral 01/28/2021 02/27/2022 1 1 [facility] Chief Complaint and Reason for Visit Chief Complaint LEFT ARM PAIN R/T IN JURY LT ORIF RADIUS ULNA Chief Complaint LEFT WRIST INJURY left wrist pain LEFT WRIST LT WRIST - EVAL FRACTURE PATTERN LEFT WRIST Reason for Visit Fracture of distal e nd of left ulna Strain of left wrist Fracture of distal end of left ulna Chief Complaint Admit Date HYPOXIA 2/2 CAP November 06, 2024 3:43p m Reason for Visit Admit Date Acute hypotension November 06, 2024 3:43p m Anemia November 06, 2024 3:43p m Bilateral interstitial pneumonia November 3:43pm Hypoxia November 06, 2024 3:43p m Rigors November 06, 2024 3:43p m Chief Complaint Admit Date HYPOXIA 2/2 CAP November 06, 2024 3:43p m HYPOXIA 2/2 CAP November 06, 2024 3:49p m HYPOXIA 2/2 CAP November 07, 2024 12:15 am HYPOXIA 2/2 CAP November 07, 2024 9:36a m HYPOXIA 2/2 CAP November 08, 2024 8:57a m HYPOXIA 2/2 CAP November 08, 2024 9:42a m HYPOXIA 2/2 CAP November 09, 2024 9:19a m Reason for Visit Admit Date Acute hypotension November 06, 2024 3:43p m Anemia November 06, 2024 3:43p m Bilateral interstitial pneumonia November 3:43pm HIV (human immunodeficiency virus infect ion) November 06, 2024 3:43pm Hypokalemia November 06, 2024 3:43p m Hypoxia November 06, 2024 3:43p m Rigors November 06, 2024 3:43p m Chief Complaint Admit Date HYPOXIA 2/2 CAP November 06, 2024 3:43p m HYPOXIA 2/2 CAP November 06, 2024 3:49p m HYPOXIA 2/2 CAP November 07, 2024 12:15 am HYPOXIA 2/2 CAP November 07, 2024 9:36a m HYPOXIA 2/2 CAP November 08, 2024 8:57a m HYPOXIA 2/2 CAP November 08, 2024 9:42a m PREOP November 08, 2024 10:16 am HYPOXIA 2/2 CAP November 09, 2024 9:19a m SEPSIS DUE TO PNEUMONIA IN SETTING OF HI V/AIDS November 20, 2024 3:54pm Reason for Visit Admit Date HIV (human immunodeficiency virus infect ion) November 06, 2024 3:43pm Acute hypotension November 06, 2024 3:43p m Anemia November 06, 2024 3:43p m Bilateral interstitial pneumonia November 3:43pm Hypokalemia November 06, 2024 3:43p m Hypoxia November 06, 2024 3:43p m Rigors November 06, 2024 3:43p m Acute prerenal azotemia November 20, 2024 3:54pm Bilateral interstitial pneumonia November 202024 3:54pm HIV (human immunodeficiency virus infect ion) November 20, 2024 3:54pm Hypochloremia November 20, 2024 3:54 pm Hyponatremia November 20, 2024 3:54 pm Hypoxia November 20, 2024 3:54 pm Iron deficiency anemia November 20, 2024 3 :54pm Neutropenia associated with infection Ju 2024 3:54pm Nondiabetic hyperglycemia November 20 3:54pm Sepsis November 20, 2024 3:54 pm Severe sepsis November 20, 2024 3:54 pm Family History Relationship Condition Age at Onset Recorded Date/T citlali mother Malignant neoplasm Unknown aunt Disorder of thyroid Unknown grandfather Cerebrovascular accident (CVA) Unknown Parkinson's disease Unknown Advance Directives Advance Directive Response Recorded Date/ Time Living Will No February 03 11:56am Power of Merchandising Representative No February 03, 2022 11:56am Advance Directive Response Recorded Date/ Time Living Will No February 03 10:56am Power of Merchandising Representative No February 03, 2022 10:56am Advance Directive Response Recorded Date/ Time Do you have a Healthcare Power of Merchandising Representative? No November 06, 2024 12:17pm Advance Directive Response Recorded Date/ Time Do you have a Healthcare Power of Merchandising Representative? No November 06, 2024 4:46pm Advance Directive Response Recorded Date/ Time Do you have a Healthcare Power of Merchandising Representative? No November 06, 2024 4:46pm Do you have a Healthcare Power of Merchandising Representative? No November 20, 2024 2:06pm Summary Purpose Additional Source Comments Care Teams (unrecognized sec tion and content) Team Status: Active Member Role Status Dates LILI Taylor Primary Care Provider Active Team Status: Inactive Member Role Status Dates No Primary Care Physician Primary Care Provider Active Start: November 06, 2024 End: November 09, 2024 Dr. Parish Frias MD Emergency Provider Active Sta rt: November 06, 2024 End: November 09, 2024 Dr. Shayy Dodson DO Admit Provider Active Start : November 06, 2024 End: November 09, 2024 Dr. Shayy Dodson DO Other Provider Active Start : November 06, 2024 End: November 09, 2024 Dr. Damian Lorenzo MD Other Provider Active Start: November 06, 2024 End: November 09, 2024 Dr. Rick Charles MD Other Provider Active Start: November 06, 2024 End: November 09, 2024 Dr. Kee Rodgers MD Other Provider Active Star t: November 06, 2024 End: November 09, 2024 Dr. Rangel Cardona DO Other Provider Active Start : November 06, 2024 End: November 09, 2024 Dr. Martell Yin MD Other Provider Active Sta rt: November 06, 2024 End: November 09, 2024 Dr. Martin Rodriguez MD Other Provider Active St art: November 06, 2024 End: November 09, 2024 Dr. Irving Torres MD Other Provider Active S tart: November 06, 2024 End: November 09, 2024 Dr. Krissy Wolfe MD Other Provider Active Start: November 06, 2024 End: November 09, 2024 Dr. Miguel Butler MD Other Provider Active Start : November 06, 2024 End: November 09, 2024 Dr. Jimmy Nelson MD Other Provider Active Start: November 06, 2024 End: November 09, 2024 Dr. Juan Carlos Padilla MD Other Provider Active Start : November 06, 2024 End: November 09, 2024 Dr. Maddie Hess MD Other Provider Active Star t: November 06, 2024 End: November 09, 2024 Dr. Nan Watson MD Other Provider Active Sta rt: November 06, 2024 End: November 09, 2024 Dr. Sabina Balderas MD Other Provider Active Sta rt: November 06, 2024 End: November 09, 2024 Dr. Davey Rivera MD Other Provider Active Star t: November 06, 2024 End: November 09, 2024 Dr. Wilmer Amin MD Other Provider Active St art: November 06, 2024 End: November 09, 2024 Dr. Igor Fall MD Other Provider Active Star t: November 06, 2024 End: November 09, 2024 Dr. Sammy Sandhu DO Other Provider Active St art: November 06, 2024 End: November 09, 2024 Dr. oNah Peterson MD Other Provider Active Start: November 06, 2024 End: November 09, 2024 Dr. Suhail Thorpe MD Other Provider Active St art: November 06, 2024 End: November 09, 2024 Dr. Antwon Razo DO Other Provider Active Start: November 06, 2024 End: November 09, 2024 Dr. Mark Coker MD Other Provider Active Star t: November 06, 2024 End: November 09, 2024 Dr. Walt Krishnan MD Other Provider Active Sta rt: November 06, 2024 End: November 09, 2024 Dr. Chidi Arellano MD Other Provider Active Start: November 06, 2024 End: November 09, 2024 Dr. Pb Adams DO Attending Provider Active Start: November 06, 2024 End: November 09, 2024 Team Status: Active Member Role Status Dates No Primary Care Physician Primary Care Provider Active Start: November 06, 2024 Dr. Parish Frias MD Emergency Provider Active Sta rt: November 06, 2024 Dr. Shayy Dodson DO Admit Provider Active Start : November 06, 2024 Dr. Shayy Dodson DO Attending Provider Active S tart: November 06, 2024 Dr. Shayy Dodson DO Other Provider Active Start : November 06, 2024 Dr. Damian Lorenzo MD Other Provider Active Start: November 06, 2024 Dr. Rick Charles MD Other Provider Active Start: November 06, 2024 Dr. Kee Rodgers MD Other Provider Active Star t: November 06, 2024 Dr. Rangel Cardona DO Other Provider Active Start : November 06, 2024 Dr. Martell Yin MD Other Provider Active Sta rt: November 06, 2024 Dr. Martin Rodriguez MD Other Provider Active St art: November 06, 2024 Dr. Irving Torres MD Other Provider Active S tart: November 06, 2024 Dr. Krissy Wolfe MD Other Provider Active Start: November 06, 2024 Dr. Miguel Butler MD Other Provider Active Start : November 06, 2024 Dr. Jimmy Nelson MD Other Provider Active Start: November 06, 2024 Dr. Juan Carlos Padilla MD Other Provider Active Start : November 06, 2024 Dr. Maddie Hess MD Other Provider Active Star t: November 06, 2024 Dr. Nan Watson MD Other Provider Active Sta rt: November 06, 2024 Dr. Sabina Balderas MD Other Provider Active Sta rt: November 06, 2024 Dr. Davey Rivera MD Other Provider Active Star t: November 06, 2024 Dr. Wilmer Amin MD Other Provider Active St art: November 06, 2024 Dr. Igor Fall MD Other Provider Active Star t: November 06, 2024 Dr. Sammy Sandhu DO Other Provider Active St art: November 06, 2024 Dr. Noah Peterson MD Other Provider Active Start: November 06, 2024 Dr. Suhail Thorpe MD Other Provider Active St art: November 06, 2024 Dr. Antwon Razo DO Other Provider Active Start: November 06, 2024 Dr. Mark Coker MD Other Provider Active Star t: November 06, 2024 Dr. Walt Krishnan MD Other Provider Active Sta rt: November 06, 2024 Team Status: Active Member Role Status Dates No Primary Care Physician Primary Care Provider Active Start: November 07, 2024 Dr. Parish Frias MD Emergency Provider Active Sta rt: November 07, 2024 Dr. Shayy Dodson DO Admit Provider Active Start : November 07, 2024 Dr. Shayy Dodson DO Other Provider Active Start : November 07, 2024 Dr. Damian Lorenzo MD Other Provider Active Start: November 07, 2024 Dr. Rick Charles MD Other Provider Active Start: November 07, 2024 Dr. Kee Rodgers MD Other Provider Active Star t: November 07, 2024 Dr. Rangel Cardona DO Other Provider Active Start : November 07, 2024 Dr. Martell Yin MD Other Provider Active Sta rt: November 07, 2024 Dr. Martin Rodriguez MD Other Provider Active St art: November 07, 2024 Dr. Irving Torres MD Other Provider Active S tart: November 07, 2024 Dr. Krissy Wolfe MD Other Provider Active Start: November 07, 2024 Dr. Miguel Butler MD Other Provider Active Start : November 07, 2024 Dr. Jimmy Nelson MD Other Provider Active Start: November 07, 2024 Dr. Juan Carlos Padilla MD Other Provider Active Start : November 07, 2024 Dr. Maddie Hess MD Other Provider Active Star t: November 07, 2024 Dr. Nan Watson MD Other Provider Active Sta rt: November 07, 2024 Dr. Sabina Balderas MD Other Provider Active Sta rt: November 07, 2024 Dr. Davey Rivera MD Other Provider Active Star t: November 07, 2024 Dr. Wilmer Amin MD Other Provider Active St art: November 07, 2024 Dr. Igor Fall MD Other Provider Active Star t: November 07, 2024 Dr. Sammy Sandhu DO Other Provider Active St art: November 07, 2024 Dr. Noah Peterson MD Other Provider Active Start: November 07, 2024 Dr. Suhail Thorpe MD Other Provider Active St art: November 07, 2024 Dr. Antwon Razo DO Other Provider Active Start: November 07, 2024 Dr. Mark Coker MD Other Provider Active Star t: November 07, 2024 Dr. Walt Krishnan MD Other Provider Active Sta rt: November 07, 2024 Dr. Mora López MD Attending Provider Active Start: November 07, 2024 Team Status: Active Member Role Status Dates No Primary Care Physician Primary Care Provider Active Start: November 07, 2024 Dr. Parish Frias MD Emergency Provider Active Sta rt: November 07, 2024 Dr. Shayy Dodson DO Admit Provider Active Start : November 07, 2024 Dr. Shayy Dodson DO Other Provider Active Start : November 07, 2024 Dr. Damian Lorenzo MD Other Provider Active Start: November 07, 2024 Dr. Rick Charles MD Other Provider Active Start: November 07, 2024 Dr. Kee Rodgers MD Other Provider Active Star t: November 07, 2024 Dr. Rangel Cardona DO Attending Provider Active S tart: November 07, 2024 Dr. Rangel Cardona DO Other Provider Active Start : November 07, 2024 Dr. Martell Yin MD Other Provider Active Sta rt: November 07, 2024 Dr. Martin Rodriguez MD Other Provider Active St art: November 07, 2024 Dr. Irving Torres MD Other Provider Active S tart: November 07, 2024 Dr. Krissy Wolfe MD Other Provider Active Start: November 07, 2024 Dr. Miguel Butler MD Other Provider Active Start : November 07, 2024 Dr. Jimmy Nelson MD Other Provider Active Start: November 07, 2024 Dr. Juan Carlos Padilla MD Other Provider Active Start : November 07, 2024 Dr. Maddie Hess MD Other Provider Active Star t: November 07, 2024 Dr. Nan Watson MD Other Provider Active Sta rt: November 07, 2024 Dr. Sabina Balderas MD Other Provider Active Sta rt: November 07, 2024 Dr. Davey Rivera MD Other Provider Active Star t: November 07, 2024 Dr. Wilmer Amin MD Other Provider Active St art: November 07, 2024 Dr. Igor Fall MD Other Provider Active Star t: November 07, 2024 Dr. Sammy Sandhu DO Other Provider Active St art: November 07, 2024 Dr. Noah Peterson MD Other Provider Active Start: November 07, 2024 Dr. Suhail Thorpe MD Other Provider Active St art: November 07, 2024 Dr. Antwon Razo DO Other Provider Active Start: November 07, 2024 Dr. Mark Coker MD Other Provider Active Star t: November 07, 2024 Dr. Walt Krishnan MD Other Provider Active Sta rt: November 07, 2024 Dr. Pb Adams DO Referring Provider Active Start: November 07, 2024 Dr. Pb Adams DO Other Provider Active Star t: November 07, 2024 Dr. Chidi Arellano MD Other Provider Active Start: November 07, 2024 Team Status: Active Member Role Status Dates No Primary Care Physician Primary Care Provider Active Start: November 08, 2024 Dr. Parish Frias MD Emergency Provider Active Sta rt: November 08, 2024 Dr. Shayy Dodson DO Admit Provider Active Start : November 08, 2024 Dr. Shayy Dodson DO Other Provider Active Start : November 08, 2024 Dr. Damian Lorenzo MD Other Provider Active Start: November 08, 2024 Dr. Rick Charles MD Other Provider Active Start: November 08, 2024 Dr. Kee Rodgers MD Other Provider Active Star t: November 08, 2024 Dr. Rangel Cardona DO Other Provider Active Start : November 08, 2024 Dr. Martell Yin MD Other Provider Active Sta rt: November 08, 2024 Dr. Martin Rodriguez MD Other Provider Active St art: November 08, 2024 Dr. Irving Torres MD Other Provider Active S tart: November 08, 2024 Dr. Krissy Wolfe MD Other Provider Active Start: November 08, 2024 Dr. Miguel Butler MD Other Provider Active Start : November 08, 2024 Dr. Jimmy Nelson MD Other Provider Active Start: November 08, 2024 Dr. Juan Carlos Padilla MD Other Provider Active Start : November 08, 2024 Dr. Maddie Hess MD Other Provider Active Star t: November 08, 2024 Dr. Nan Watson MD Other Provider Active Sta rt: November 08, 2024 Dr. Sabina Balderas MD Other Provider Active Sta rt: November 08, 2024 Dr. Davey Rivera MD Other Provider Active Star t: November 08, 2024 Dr. Wilmer Amin MD Other Provider Active St art: November 08, 2024 Dr. Igor Fall MD Other Provider Active Star t: November 08, 2024 Dr. Sammy Sandhu , Other Provider Active St art: November 08, 2024 Dr. Noah Peterson MD Other Provider Active Start: November 08, 2024 Dr. Suhail Thorpe MD Other Provider Active St art: November 08, 2024 Dr. Antwon Razo DO Other Provider Active Start: November 08, 2024 Dr. Mark Coker MD Other Provider Active Star t: November 08, 2024 Dr. Walt Krishnan MD Other Provider Active Sta rt: November 08, 2024 Dr. Chidi Arellano MD Other Provider Active Start: November 08, 2024 Dr. Pb Adams DO Attending Provider Active Start: November 08, 2024 Dr. Pb Adams DO Other Provider Active Star t: November 08, 2024 Team Status: Active Member Role Status Dates No Primary Care Physician Primary Care Provider Active Start: November 08, 2024 Dr. Parish Frias MD Emergency Provider Active Sta rt: November 08, 2024 Dr. Shayy Dodsno DO Admit Provider Active Start : November 08, 2024 Dr. Shayy Dodson DO Other Provider Active Start : November 08, 2024 Dr. Damian Lorenzo MD Other Provider Active Start: November 08, 2024 Dr. Rick Charles MD Other Provider Active Start: November 08, 2024 Dr. Kee Rodgesr MD Other Provider Active Star t: November 08, 2024 Dr. Rangel Cardona DO Attending Provider Active S tart: November 08, 2024 Dr. Rangel Cardona DO Other Provider Active Start : November 08, 2024 Dr. Martell Yin MD Other Provider Active Sta rt: November 08, 2024 Dr. Martin Rodriguez MD Other Provider Active St art: November 08, 2024 Dr. Irving Torres MD Other Provider Active S tart: November 08, 2024 Dr. Krissy Wolfe MD Other Provider Active Start: November 08, 2024 Dr. Miguel Butler MD Other Provider Active Start : November 08, 2024 Dr. Jimmy Nelson MD Other Provider Active Start: November 08, 2024 Dr. Juan Carlos Padilla MD Other Provider Active Start : November 08, 2024 Dr. Maddie Hess MD Other Provider Active Star t: November 08, 2024 Dr. Nan Watson MD Other Provider Active Sta rt: November 08, 2024 Dr. Sabina Balderas MD Other Provider Active Sta rt: November 08, 2024 Dr. Davey Rivera MD Other Provider Active Star t: November 08, 2024 Dr. Wilmer Amin MD Other Provider Active St art: November 08, 2024 Dr. Igor Fall MD Other Provider Active Star t: November 08, 2024 Dr. Sammy Sandhu , Other Provider Active St art: November 08, 2024 Dr. Noah Peterson MD Other Provider Active Start: November 08, 2024 Dr. Suhail Thorpe MD Other Provider Active St art: November 08, 2024 Dr. Antwon Razo DO Other Provider Active Start: November 08, 2024 Dr. Mark Coker MD Other Provider Active Star t: November 08, 2024 Dr. Walt Krishnan MD Other Provider Active Sta rt: November 08, 2024 Dr. Chidi Arellano MD Other Provider Active Start: November 08, 2024 Dr. Pb Adams DO Referring Provider Active Start: November 08, 2024 Dr. Pb Adams DO Other Provider Active Star t: November 08, 2024 Team Status: Active Member Role Status Dates No Primary Care Physician Primary Care Provider Active Start: November 08, 2024 End: November 08, 2024 Dr. Joseph Currie MD Attending Provider Active Start: November 08, 2024 End: November 08, 2024 Dr. Shayy Dodson DO Referring Provider Active S tart: November 08, 2024 End: November 08, 2024 Team Status: Active Member Role Status Dates No Primary Care Physician Primary Care Provider Active Start: November 09, 2024 Dr. Parish Frias MD Emergency Provider Active Sta rt: November 09, 2024 Dr. Shayy Dodson DO Admit Provider Active Start : November 09, 2024 Dr. Shayy Dodson DO Other Provider Active Start : November 09, 2024 Dr. Damian Lorenzo MD Other Provider Active Start: November 09, 2024 Dr. Rick Charles MD Other Provider Active Start: November 09, 2024 Dr. Kee Rodgers MD Other Provider Active Star t: November 09, 2024 Dr. Rangel Cardona , Other Provider Active Start : November 09, 2024 Dr. Martell Yin MD Other Provider Active Sta rt: November 09, 2024 Dr. Martin Rodriguez MD Other Provider Active St art: November 09, 2024 Dr. Irving Torres MD Other Provider Active S tart: November 09, 2024 Dr. Krissy Wolfe MD Other Provider Active Start: November 09, 2024 Dr. Miguel Butler MD Other Provider Active Start : November 09, 2024 Dr. Jimmy Nelson MD Other Provider Active Start: November 09, 2024 Dr. Juan Carlos Padilla MD Other Provider Active Start : November 09, 2024 Dr. Maddie Hess MD Other Provider Active Star t: November 09, 2024 Dr. Nan Watson MD Other Provider Active Sta rt: November 09, 2024 Dr. Sabina Balderas MD Other Provider Active Sta rt: November 09, 2024 Dr. Davey Rivera MD Other Provider Active Star t: November 09, 2024 Dr. Wilmer Amin MD Other Provider Active St art: November 09, 2024 Dr. Igor Fall MD Other Provider Active Star t: November 09, 2024 Dr. Sammy Sandhu , Other Provider Active St art: November 09, 2024 Dr. Noah Peterson MD Other Provider Active Start: November 09, 2024 Dr. Suhail Thorpe MD Other Provider Active St art: November 09, 2024 Dr. Antwon Razo DO Other Provider Active Start: November 09, 2024 Dr. Mark Coker MD Other Provider Active Star t: November 09, 2024 Dr. Walt Krishnan MD Other Provider Active Sta rt: November 09, 2024 Dr. Chidi Arellano MD Other Provider Active Start: November 09, 2024 Dr. Pb Adams DO Attending Provider Active Start: November 09, 2024 Dr. Pb Adams DO Other Provider Active Star t: November 09, 2024 Team Status: Active Member Role Status Dates LILI Taylor Primary Care Provider Active Start: November 19, 2024 LILI Taylor Attending Provider Active Start: November 19, 2024 Team Status: Active Member Role Status Dates LILI Taylor Primary Care Provider Active Start: November 20, 2024 Dr. Parish Frias MD Emergency Provider Active Sta rt: November 20, 2024 Dr. Cody Martínez DO Admit Provider Active Start: November 20, 2024 Dr. Cody Martínez DO Attending Provider Active Start: November 20, 2024 Dr. Cody Martínez DO Other Provider Active Start: November 20, 2024 Team Status: Active Member Role Status Dates No Primary Care Physician Primary Care Provider Active Team Status: Inactive Member Role Status Dates No Primary Care Physician Primary Care Provider Active Start: November 06, 2024 End: November 09, 2024 Dr. Parish Frias MD Emergency Provider Active Sta rt: November 06, 2024 End: November 09, 2024 Dr. Shayy Dodson DO Admit Provider Active Start : November 06, 2024 End: November 09, 2024 Dr. Shayy Dodson DO Other Provider Active Start : November 06, 2024 End: November 09, 2024 Dr. Damian Lorenzo MD Other Provider Active Start: November 06, 2024 End: November 09, 2024 Dr. Rick Charles MD Other Provider Active Start: November 06, 2024 End: November 09, 2024 Dr. Kee Rodgers MD Other Provider Active Star t: November 06, 2024 End: November 09, 2024 Dr. Rangel Cardona DO Other Provider Active Start : November 06, 2024 End: November 09, 2024 Dr. Martell Yin MD Other Provider Active Sta rt: November 06, 2024 End: November 09, 2024 Dr. Martin Rodriguez MD Other Provider Active St art: November 06, 2024 End: November 09, 2024 Dr. Irving Torres MD Other Provider Active S tart: November 06, 2024 End: November 09, 2024 Dr. Krissy Wolfe MD Other Provider Active Start: November 06, 2024 End: November 09, 2024 Dr. Miguel Butler MD Other Provider Active Start : November 06, 2024 End: November 09, 2024 Dr. Jimmy Nelson MD Other Provider Active Start: November 06, 2024 End: November 09, 2024 Dr. Juan Carlos Padilla MD Other Provider Active Start : November 06, 2024 End: November 09, 2024 Dr. Maddie Hess MD Other Provider Active Star t: November 06, 2024 End: November 09, 2024 Dr. Nan Watson MD Other Provider Active Sta rt: November 06, 2024 End: November 09, 2024 Dr. Sabina Balderas MD Other Provider Active Sta rt: November 06, 2024 End: November 09, 2024 Dr. Davey Rivera MD Other Provider Active Star t: November 06, 2024 End: November 09, 2024 Dr. Wilmer Amin MD Other Provider Active St art: November 06, 2024 End: November 09, 2024 Dr. Igor Fall MD Other Provider Active Star t: November 06, 2024 End: November 09, 2024 Dr. Sammy Sandhu DO Other Provider Active St art: November 06, 2024 End: November 09, 2024 Dr. Noah Peterson MD Other Provider Active Start: November 06, 2024 End: November 09, 2024 Dr. Suhail Thorpe MD Other Provider Active St art: November 06, 2024 End: November 09, 2024 Dr. Antwon Razo DO Other Provider Active Start: November 06, 2024 End: November 09, 2024 Dr. Mark Coker MD Other Provider Active Star t: November 06, 2024 End: November 09, 2024 Dr. Walt Krishnan MD Other Provider Active Sta rt: November 06, 2024 End: November 09, 2024 Dr. Chidi Arellano MD Other Provider Active Start: November 06, 2024 End: November 09, 2024 Dr. Pb Adams DO Attending Provider Active Start: November 06, 2024 End: November 09, 2024 Team Status: Active Member Role Status Dates No Primary Care Physician Primary Care Provider Active Start: November 06, 2024 Dr. Parish Frias MD Emergency Provider Active Sta rt: November 06, 2024 Dr. Shayy Dodson DO Admit Provider Active Start : November 06, 2024 Dr. Shayy Dodson DO Attending Provider Active S tart: November 06, 2024 Dr. Shayy Dodson DO Other Provider Active Start : November 06, 2024 Dr. Damian Lorenzo MD Other Provider Active Start: November 06, 2024 Dr. Rick Charles MD Other Provider Active Start: November 06, 2024 Dr. Kee Rodgers MD Other Provider Active Star t: November 06, 2024 Dr. Rangel Cardona DO Other Provider Active Start : November 06, 2024 Dr. Martell Yin MD Other Provider Active Sta rt: November 06, 2024 Dr. Martin Rodriguez MD Other Provider Active St art: November 06, 2024 Dr. Irving Torres MD Other Provider Active S tart: November 06, 2024 Dr. Krissy Wolfe MD Other Provider Active Start: November 06, 2024 Dr. Miguel Butler MD Other Provider Active Start : November 06, 2024 Dr. Jimmy Nelson MD Other Provider Active Start: November 06, 2024 Dr. Juan Carlos Padilla MD Other Provider Active Start : November 06, 2024 Dr. Maddie Hess MD Other Provider Active Star t: November 06, 2024 Dr. Nan Watson MD Other Provider Active Sta rt: November 06, 2024 Dr. Sabina Balderas MD Other Provider Active Sta rt: November 06, 2024 Dr. Davey Rivera MD Other Provider Active Star t: November 06, 2024 Dr. Wilmer Amin MD Other Provider Active St art: November 06, 2024 Dr. Igor Fall MD Other Provider Active Star t: November 06, 2024 Dr. Sammy Sandhu DO Other Provider Active St art: November 06, 2024 Dr. Noah Peterson MD Other Provider Active Start: November 06, 2024 Dr. Suhail Thorpe MD Other Provider Active St art: November 06, 2024 Dr. Antwon Razo DO Other Provider Active Start: November 06, 2024 Dr. Mark Coker MD Other Provider Active Star t: November 06, 2024 Dr. Walt Krishnan MD Other Provider Active Sta rt: November 06, 2024 Team Status: Active Member Role Status Dates No Primary Care Physician Primary Care Provider Active Start: November 07, 2024 Dr. Parish Frias MD Emergency Provider Active Sta rt: November 07, 2024 Dr. Shayy Dodson DO Admit Provider Active Start : November 07, 2024 Dr. Shayy Dodson , Other Provider Active Start : November 07, 2024 Dr. Damian Lorenzo MD Other Provider Active Start: November 07, 2024 Dr. Rick Charles MD Other Provider Active Start: November 07, 2024 Dr. Kee Rodgers MD Other Provider Active Star t: November 07, 2024 Dr. Rangel Cardona , Other Provider Active Start : November 07, 2024 Dr. Martell Yin MD Other Provider Active Sta rt: November 07, 2024 Dr. Martin Rodriguez MD Other Provider Active St art: November 07, 2024 Dr. Irving Torres MD Other Provider Active S tart: November 07, 2024 Dr. Krissy Wolfe MD Other Provider Active Start: November 07, 2024 Dr. Miguel Butler MD Other Provider Active Start : November 07, 2024 Dr. Jimmy Nelson MD Other Provider Active Start: November 07, 2024 Dr. Juan Carlos Padilla MD Other Provider Active Start : November 07, 2024 Dr. Maddie Hess MD Other Provider Active Star t: November 07, 2024 Dr. Nan Watson MD Other Provider Active Sta rt: November 07, 2024 Dr. Sabina Balderas MD Other Provider Active Sta rt: November 07, 2024 Dr. Davey Rivera MD Other Provider Active Star t: November 07, 2024 Dr. Wilmer Amin MD Other Provider Active St art: November 07, 2024 Dr. Igor Fall MD Other Provider Active Star t: November 07, 2024 Dr. Sammy Sandhu DO Other Provider Active St art: November 07, 2024 Dr. Noah Peterson MD Other Provider Active Start: November 07, 2024 Dr. Suhail Thorpe MD Other Provider Active St art: November 07, 2024 Dr. Antwon Razo DO Other Provider Active Start: November 07, 2024 Dr. Mark Coker MD Other Provider Active Star t: November 07, 2024 Dr. Walt Krishnan MD Other Provider Active Sta rt: November 07, 2024 Dr. Mora López MD Attending Provider Active Start: November 07, 2024 Team Status: Active Member Role Status Dates No Primary Care Physician Primary Care Provider Active Start: November 07, 2024 Dr. Parish Frias MD Emergency Provider Active Sta rt: November 07, 2024 Dr. Shayy Dodson DO Admit Provider Active Start : November 07, 2024 Dr. Shayy Dodson DO Other Provider Active Start : November 07, 2024 Dr. Damian Lorenzo MD Other Provider Active Start: November 07, 2024 Dr. Rick Charles MD Other Provider Active Start: November 07, 2024 Dr. Kee Rodgers MD Other Provider Active Star t: November 07, 2024 Dr. Rangel Cardona DO Attending Provider Active S tart: November 07, 2024 Dr. Rangel Cardona DO Other Provider Active Start : November 07, 2024 Dr. Martell Yin MD Other Provider Active Sta rt: November 07, 2024 Dr. Martin Rodriguez MD Other Provider Active St art: November 07, 2024 Dr. Irving Torres MD Other Provider Active S tart: November 07, 2024 Dr. Krissy Wolfe MD Other Provider Active Start: November 07, 2024 Dr. Miguel Butler MD Other Provider Active Start : November 07, 2024 Dr. Jimmy Nelson MD Other Provider Active Start: November 07, 2024 Dr. Juan Carlos Padilla MD Other Provider Active Start : November 07, 2024 Dr. Maddie Hess MD Other Provider Active Star t: November 07, 2024 Dr. Nan Watson MD Other Provider Active Sta rt: November 07, 2024 Dr. Sabina Balderas MD Other Provider Active Sta rt: November 07, 2024 Dr. Davey Rivera MD Other Provider Active Star t: November 07, 2024 Dr. Wilmer Amin MD Other Provider Active St art: November 07, 2024 Dr. Igor Fall MD Other Provider Active Star t: November 07, 2024 Dr. Sammy Sandhu DO Other Provider Active St art: November 07, 2024 Dr. Noah Peterson MD Other Provider Active Start: November 07, 2024 Dr. Suhail Thorpe MD Other Provider Active St art: November 07, 2024 Dr. Antwon Razo DO Other Provider Active Start: November 07, 2024 Dr. Mark Coker MD Other Provider Active Star t: November 07, 2024 Dr. Walt Krishnan MD Other Provider Active Sta rt: November 07, 2024 Dr. Pb Adams , Other Provider Active Star t: November 07, 2024 Dr. Chidi Arellano MD Other Provider Active Start: November 07, 2024 Team Status: Active Member Role Status Dates No Primary Care Physician Primary Care Provider Active Start: November 08, 2024 Dr. Parish Frias MD Emergency Provider Active Sta rt: November 08, 2024 Dr. Shayy Dodson DO Admit Provider Active Start : November 08, 2024 Dr. Shayy Dodson DO Other Provider Active Start : November 08, 2024 Dr. Damian Lorenzo MD Other Provider Active Start: November 08, 2024 Dr. Rick Charles MD Other Provider Active Start: November 08, 2024 Dr. Kee Rodgers MD Other Provider Active Star t: November 08, 2024 Dr. Rangel Cardona DO Other Provider Active Start : November 08, 2024 Dr. Martell Yin MD Other Provider Active Sta rt: November 08, 2024 Dr. Martin Rodriguez MD Other Provider Active St art: November 08, 2024 Dr. Irving Torres MD Other Provider Active S tart: November 08, 2024 Dr. Krissy Wolfe MD Other Provider Active Start: November 08, 2024 Dr. Miguel Butler MD Other Provider Active Start : November 08, 2024 Dr. Jimmy Nelson MD Other Provider Active Start: November 08, 2024 Dr. Juan Carlos Padilla MD Other Provider Active Start : November 08, 2024 Dr. Maddie Hess MD Other Provider Active Star t: November 08, 2024 Dr. Nan Watson MD Other Provider Active Sta rt: November 08, 2024 Dr. Sabina Balderas MD Other Provider Active Sta rt: November 08, 2024 Dr. Davey Rivera MD Other Provider Active Star t: November 08, 2024 Dr. Wilmer Amin MD Other Provider Active St art: November 08, 2024 Dr. Igor Fall MD Other Provider Active Star t: November 08, 2024 Dr. Sammy Sandhu DO Other Provider Active St art: November 08, 2024 Dr. Noah Peterson MD Other Provider Active Start: November 08, 2024 Dr. Suhail Thorpe MD Other Provider Active St art: November 08, 2024 Dr. Antwon Razo DO Other Provider Active Start: November 08, 2024 Dr. Mark Coker MD Other Provider Active Star t: November 08, 2024 Dr. Walt Krishnan MD Other Provider Active Sta rt: November 08, 2024 Dr. Chidi Arellano MD Other Provider Active Start: November 08, 2024 Dr. Pb Adams DO Attending Provider Active Start: November 08, 2024 Dr. Pb Adams DO Other Provider Active Star t: November 08, 2024 Team Status: Active Member Role Status Dates No Primary Care Physician Primary Care Provider Active Start: November 08, 2024 Dr. Parish Frias MD Emergency Provider Active Sta rt: November 08, 2024 Dr. Shayy Dodson DO Admit Provider Active Start : November 08, 2024 Dr. Shayy Dodson DO Other Provider Active Start : November 08, 2024 Dr. Damian Lorenzo MD Other Provider Active Start: November 08, 2024 Dr. Rick Charles MD Other Provider Active Start: November 08, 2024 Dr. Kee Rodgers MD Other Provider Active Star t: November 08, 2024 Dr. Rangel Cardona DO Attending Provider Active S tart: November 08, 2024 Dr. Rangel Cardona DO Other Provider Active Start : November 08, 2024 Dr. Martell Yin MD Other Provider Active Sta rt: November 08, 2024 Dr. Martin Rodriguez MD Other Provider Active St art: November 08, 2024 Dr. Irving Torres MD Other Provider Active S tart: November 08, 2024 Dr. Krissy Wolfe MD Other Provider Active Start: November 08, 2024 Dr. Miguel Butler MD Other Provider Active Start : November 08, 2024 Dr. Jimmy Nelson MD Other Provider Active Start: November 08, 2024 Dr. Juan Carlos Padilla MD Other Provider Active Start : November 08, 2024 Dr. Maddie Hess MD Other Provider Active Star t: November 08, 2024 Dr. Nan Watson MD Other Provider Active Sta rt: November 08, 2024 Dr. Sabina Balderas MD Other Provider Active Sta rt: November 08, 2024 Dr. Davey Rivera MD Other Provider Active Star t: November 08, 2024 Dr. Wilmer Amin MD Other Provider Active St art: November 08, 2024 Dr. Igor Fall MD Other Provider Active Star t: November 08, 2024 Dr. Sammy Sandhu DO Other Provider Active St art: November 08, 2024 Dr. Noah Peterson MD Other Provider Active Start: November 08, 2024 Dr. Suhail Thorpe MD Other Provider Active St art: November 08, 2024 Dr. Antwon Razo , Other Provider Active Start: November 08, 2024 Dr. Mark Coker MD Other Provider Active Star t: November 08, 2024 Dr. Walt Krishnan MD Other Provider Active Sta rt: November 08, 2024 Dr. Chidi Arellano MD Other Provider Active Start: November 08, 2024 Dr. Pb Adams DO Other Provider Active Star t: November 08, 2024 Team Status: Active Member Role Status Dates No Primary Care Physician Primary Care Provider Active Start: November 09, 2024 Dr. Parish Frias MD Emergency Provider Active Sta rt: November 09, 2024 Dr. Shayy Dodson DO Admit Provider Active Start : November 09, 2024 Dr. Shayy Dodson DO Other Provider Active Start : November 09, 2024 Dr. Damian Lorenzo MD Other Provider Active Start: November 09, 2024 Dr. Rick Charles MD Other Provider Active Start: November 09, 2024 Dr. Kee Rodgers MD Other Provider Active Star t: November 09, 2024 Dr. Rangel Cardona DO Other Provider Active Start : November 09, 2024 Dr. Martell Yin MD Other Provider Active Sta rt: November 09, 2024 Dr. Martin Rodriguez MD Other Provider Active St art: November 09, 2024 Dr. Irving Torres MD Other Provider Active S tart: November 09, 2024 Dr. Krissy Wolfe MD Other Provider Active Start: November 09, 2024 Dr. Miguel Butler MD Other Provider Active Start : November 09, 2024 Dr. Jimmy Nelson MD Other Provider Active Start: November 09, 2024 Dr. Juan Carlos Padilla MD Other Provider Active Start : November 09, 2024 Dr. Maddie Hess MD Other Provider Active Star t: November 09, 2024 Dr. Nan Watson MD Other Provider Active Sta rt: November 09, 2024 Dr. Sabina Balderas MD Other Provider Active Sta rt: November 09, 2024 Dr. Davey Rivera MD Other Provider Active Star t: November 09, 2024 Dr. Wilmer Amin MD Other Provider Active St art: November 09, 2024 Dr. Igor Fall MD Other Provider Active Star t: November 09, 2024 Dr. Sammy Sandhu DO Other Provider Active St art: November 09, 2024 Dr. Noah Peterson MD Other Provider Active Start: November 09, 2024 Dr. Suhail Thorpe MD Other Provider Active St art: November 09, 2024 Dr. Antwon Razo DO Other Provider Active Start: November 09, 2024 Dr. Mark Coker MD Other Provider Active Star t: November 09, 2024 Dr. Walt Krishnan MD Other Provider Active Sta rt: November 09, 2024 Dr. Chidi Arellano MD Other Provider Active Start: November 09, 2024 Dr. Pb Adams DO Attending Provider Active Start: November 09, 2024 Dr. Pb Adams DO Other Provider Active Star t: November 09, 2024 Team Status: Active Member Role Status Dates [...] Primary Care Physician Primary Care Provider Active Casey REEDER PA Attending Provider, Referring Provi tracy Active Team Status: Active Member Role Status Dates No Primary Care Physician Primary Care Provider Active Nitin Scott MD Attending Provider, Referring Prov ider Active Team Status: Inactive Member Role Status Dates No Primary Care Physician Primary Care Provider Active Nitin Scott MD Attending Provider, Referring Prov ider Active [employer] Relationship Specialty Start Date End Date Kyung Potts MD [address] [place] [address] PCP - General Internal Medicine 09/26/18 01/16/22 Team Status: Active Member Role Status Dates No Primary Care Physician Primary Care Provider Active Start: November 06, 2024 Dr. Parish Frias MD Emergency Provider Active Sta rt: November 06, 2024 Dr. Shayy Dodson DO Admit Provider Active Start : November 06, 2024 Dr. Shayy Dodson DO Attending Provider Active S tart: November 06, 2024 Team Status: Active Member Role Status Dates LILI Taylor Primary Care Provider Active Team Status: Active Member Role Status Dates No Primary Care Physician Primary Care Provider Active Start: November 07, 2024 Dr. Parish Frias MD Emergency Provider Active Sta rt: November 07, 2024 Dr. Shayy Dodson DO Admit Provider Active Start : November 07, 2024 Dr. Shayy Dodson DO Other Provider Active Start : November 07, 2024 Dr. Damian Lorenzo MD Other Provider Active Start: November 07, 2024 Dr. Rick Charles MD Other Provider Active Start: November 07, 2024 Dr. Kee Rodgers MD Other Provider Active Star t: November 07, 2024 Dr. Rangel Cardona DO Attending Provider Active S tart: November 07, 2024 Dr. Rangel Cardona DO Other Provider Active Start : November 07, 2024 Dr. Martell Yin MD Other Provider Active Sta rt: November 07, 2024 Dr. Martin Rodriguez MD Other Provider Active St art: November 07, 2024 Dr. Irving Torres MD Other Provider Active S tart: November 07, 2024 Dr. Krissy Wolfe MD Other Provider Active Start: November 07, 2024 Dr. Miguel Butler MD Other Provider Active Start : November 07, 2024 Dr. Jimmy Nelson MD Other Provider Active Start: November 07, 2024 Dr. Juan Carlos Padilla MD Other Provider Active Start : November 07, 2024 Dr. Maddie Hess MD Other Provider Active Star t: November 07, 2024 Dr. Nan Watson MD Other Provider Active Sta rt: November 07, 2024 Dr. Sabina Balderas MD Other Provider Active Sta rt: November 07, 2024 Dr. Davey Rivera MD Other Provider Active Star t: November 07, 2024 Dr. Wilmer Amin MD Other Provider Active St art: November 07, 2024 Dr. Igor Fall MD Other Provider Active Star t: November 07, 2024 Dr. Sammy Sandhu , Other Provider Active St art: November 07, 2024 Dr. Noah Peterson MD Other Provider Active Start: November 07, 2024 Dr. Suhail Thorpe MD Other Provider Active St art: November 07, 2024 Dr. Antwon Razo DO Other Provider Active Start: November 07, 2024 Dr. Mark Coker MD Other Provider Active Star t: November 07, 2024 Dr. Walt Krishnan MD Other Provider Active Sta rt: November 07, 2024 Dr. Pb Adams DO Referring Provider Active Start: November 07, 2024 Dr. Pb Adams DO Other Provider Active Star t: November 07, 2024 Dr. Chidi Arellano MD Other Provider Active Start: November 07, 2024 Team Status: Active Member Role Status Dates No Primary Care Physician Primary Care Provider Active Start: November 08, 2024 Dr. Parish Frias MD Emergency Provider Active Sta rt: November 08, 2024 Dr. Shayy Dodson DO Admit Provider Active Start : November 08, 2024 Dr. Shayy Dodson DO Other Provider Active Start : November 08, 2024 Dr. Damian Lorenzo MD Other Provider Active Start: November 08, 2024 Dr. Rick Charles MD Other Provider Active Start: November 08, 2024 Dr. Kee Rodgers MD Other Provider Active Star t: November 08, 2024 Dr. Rangel Cardona DO Attending Provider Active S tart: November 08, 2024 Dr. Rangel Cardona DO Other Provider Active Start : November 08, 2024 Dr. Martell Yin MD Other Provider Active Sta rt: November 08, 2024 Dr. Martin Rodriguez MD Other Provider Active St art: November 08, 2024 Dr. Irving Torres MD Other Provider Active S tart: November 08, 2024 Dr. Krissy Wolfe MD Other Provider Active Start: November 08, 2024 Dr. Miguel Butler MD Other Provider Active Start : November 08, 2024 Dr. Jimmy Nelson MD Other Provider Active Start: November 08, 2024 Dr. Juan Carlos Padilla MD Other Provider Active Start : November 08, 2024 Dr. Maddie Hess MD Other Provider Active Star t: November 08, 2024 Dr. Nan Watson MD Other Provider Active Sta rt: November 08, 2024 Dr. Sabina Balderas MD Other Provider Active Sta rt: November 08, 2024 Dr. Davey Rivera MD Other Provider Active Star t: November 08, 2024 Dr. Wilmer Amin MD Other Provider Active St art: November 08, 2024 Dr. Igor Fall MD Other Provider Active Star t: November 08, 2024 Dr. Sammy Sandhu DO Other Provider Active St art: November 08, 2024 Dr. Noah Peterson MD Other Provider Active Start: November 08, 2024 Dr. Suhail Thorpe MD Other Provider Active St art: November 08, 2024 Dr. Antwon Razo DO Other Provider Active Start: November 08, 2024 Dr. Mark Coker MD Other Provider Active Star t: November 08, 2024 Dr. Walt Krishnan MD Other Provider Active Sta rt: November 08, 2024 Dr. Chidi Arellano MD Other Provider Active Start: November 08, 2024 Dr. Pb Adams DO Referring Provider Active Start: November 08, 2024 Dr. Pb Adams DO Other Provider Active Star t: November 08, 2024 Team Status: Active Member Role Status Dates No Primary Care Physician Primary Care Provider Active Start: November 08, 2024 End: November 08, 2024 Dr. Joseph Currie MD Attending Provider Active Start: November 08, 2024 End: November 08, 2024 Dr. Shayy Dodson DO Referring Provider Active S tart: November 08, 2024 End: November 08, 2024 Team Status: Active Member Role Status Dates LILI Taylor Primary Care Provider Active Start: November 19, 2024 Tia Tannhof , [employer] Attending Provider Active Start: November 19, 2024 Team Status: Active Member Role Status Dates LILI Taylor Primary Care Provider Active Start: November 20, 2024 Dr. Parish Frias MD Emergency Provider Active Sta rt: November 20, 2024 Dr. Cody Martínez , DO Admit Provider Active Start: November 20, 2024 Dr. Cody Martínez , DO Attending Provider Active Start: November 20, 2024 Dr. Cody Martínez , DO Other Provider Active Start: November 20, 2024 Goals (unrecognized section and content) Goals may [...] or prosecute any alcohol or drug abuse patient.[facility] Hospital[facility] the event this information is protected by the Federal Confidentiality of Alcohol and Drug Abuse Patient Records regulations: The Federal rules restrict any use of the information to criminally investigate or prosecute any alcohol or drug abuse patient.[facility] HospitalIn the event this information is protected by the Federal Confidentiality of Alcohol and Drug Abuse Patient Records regulations: The Federal rules restrict any use of the information to criminally investigate or prosecute any alcohol or drug abuse patient.[facility] Hospital[facility] the event this information is protected by the Federal Confidentiality of Alcohol and Drug Abuse Patient Records regulations: The Federal rules restrict any use of the information to criminally investigate or prosecute any alcohol or drug abuse patient[facility] Reason for Visit (unrecogniz ed section and content) Reason Comments Ear Pain Right ear x4 days Reason Comments Ear Pain Bilateral ear pain x 4 days Reason Comments Sore Throat ST x 1 week INFORMATION SOURCE (unrecogn ized section and content) DATE CREATED AUTHOR 01/17/2024 [facility] DATE CREATED AUTHOR AUTHOR'S ORGANIZ ATION 11/19/2024 [facility] FOR RECORDS PERTAINING TO PATIENTS WHO [...] BE BASED ON THE PRIMARY CLINICAL RECORDS. [employer] [facility]. provides no warranty or guarantee of the accuracy or completeness of information in this document.
[2024-11-20] MEDS: LORazepam 0.5 MG Tablet PO (23:41)
[2024-11-20] MEDS: 0.9% Saline Lock 10 ML Syringe IV (23:43)
[2024-11-21] VITALS (22 sets, daily range): BP systolic 86–112; BP diastolic 51–66; PULSE 88–133; RESP 22–39; TEMP 36.7–38.8; O2SAT 93–99; BMI 23.1
[2024-11-21] MEDS: Vancomycin IV 500 MG/100 ML BAG 100 MG IV (04:06)
[2024-11-21] MEDS: guaiFENesin 10 ML UDC (200MG/10ML) PO (04:10)
[2024-11-21 04:36] LABS: Absolute Lymphocyte Count 0.22 X10^3/uL (0.83-4.51); Absolute Neutrophil Count 2.1 X10^3/uL (2.0-7.7); Eosinophil# 0.24 X10^3/uL; Eosinophils% 9.1 % (0-5); Hemoglobin 7.7 g/dL (12.0-15.0); Lymphocyte # 0.22 X10^3/ul (0.83-4.51); Lymphocyte % 8.4 % (19-41); Mean Corp Hgb Conc 33.5 g/dL (32-36); Mean Corpuscular Hgb 29.7 pg (27.0-32.0); Mean Corpuscular Volume 88.8 fL (81-99); Mean Platelet Vol. 10.8 fl (6.2-12.0); Monocyte% 3.8 % (0-10); NRBC Flagged by Analyzer 0 % (0-5); Neutrophil # 2.05 X10^3/uL (2.7-7.7); Neutrophil % 77.9 % (47-70); POSITIVE DIFFERENTIAL YES; POSITIVE MORPHOLOGY YES; Platelet Count 217 K/mm3 (150-450); RBC Distribution Width CV 15.9 % (11.6-14.6); RBC Distribution Width SD 51.5 fl (35.1-43.9); Red Blood Count 2.59 M/mm3 (4.2-5.4); White Blood Count 2.6 K/mm3 (4.4-11.0)
[2024-11-21 04:50] LABS: ALB/GLOB Ratio 0.9 RATIO (0.9-2.4); AST(SGOT) 48 U/L (<=31); Alanine Aminotransfer ALT/SGPT 23 U/L (<=34); Albumin, Serum 2.7 g/dL (3.5-5.0); Alkaline Phosphatase 278 U/L (35-104); Anion Gap 12 (5-15); BUN 16 mg/dL (4-19); Calcium,Total 8.5 mg/dL (7.6-11.0); Carbon Dioxide 18.8 mmol/L (21.0-32.0); Chloride 102 mmol/L (98-108); Creatinine, Serum 0.92 mg/dL (0.70-1.20); EST Glomerular Filtration Rate 82 (>60); Estimated Creatinine Clearance 58.97 ml/min (50-250); Globulin 3.1 g/dL (2.2-4.2); Glucose 85 mg/dL (70-99); Potassium 3.7 mmol/L (3.3-5.1); Protein, Total 5.9 g/dL (5.9-8.4); Sodium Level 133 mmol/L (133-145); Total Bilirubin 0.61 mg/dL (0.00-1.30)
[2024-11-21] MEDS: Ondansetron 4 MG/2 ML Vial IV ×2 (04:58→21:27)
[2024-11-21] MEDS: 0.9% Saline Lock 10 ML Syringe IV ×2 (04:58→14:24)
[2024-11-21 05:27] LABS: Differential Indicated SCAN CRITERIA MET
[2024-11-21 05:28] LABS: Differential Comment SCANNED
[2024-11-21] MEDS: Albuterol 2.5 MG/3 ML VIAL.NEB. INHALATION ×3 (05:37→17:25)
[2024-11-21] MEDS: Piperacil/Tazobactam 3.375 GM in 0.9% Normal Saline (50mL MB+) 50 ML IV ×3 (05:58→21:26)
[2024-11-21] MEDS: busPIRone 5 MG Tablet PO ×3 (06:05→21:26)
[2024-11-21] MEDS: Clindamycin HCl 150 MG Capsule 450 MG PO ×3 (06:05→21:24)
--- NOTE | 2024-11-21 06:44 | EX.PCM.CONCC ---
Assessment & Plan Assessment/Plan (1) Hypoxia: PLAN: Plan RECOMMENDATIONS: 1. Continue antimicrobials per ID recommendations. 2. If the patient worsens clinically, start IV steroids. 3. Continue Biktarvy, along with clindamycin and primaquine. 4. Lovenox for DVT prophylaxis. 5. Wean supplemental oxygen to maintain saturations at or above 90%. 6. Encourage incentive spirometer use and mobilize patient as tolerated. IMPRESSIONS: 1. Shortness of breath and hypoxemia Clinical concern for underlying pneumonia versus IRIS in the setting of newly diagnosed HIV/AIDS on empiric treatment for PJP on an outpatient basis by infectious diseases with clindamycin and primaquine. Cultures are currently pending. If the patient were to worsen clinically, I would advocate starting IV steroids. Otherwise, continue current supportive care. 2. History of anemia/tobacco dependency Complicates care, management, recovery and prognosis. Continue supportive measures as noted above. Continue to monitor blood counts and transfuse if hemoglobin drops below 7 g/dL. This note was generated with Singular dictation software. It may contain incorrect words, spelling, and punctuation that were not noted in checking the note before signing. HPI Consult Data Date of Consult: 11/21/24 HPI Narrative Reason for Consultation: Critical care management HPI Narrative: The patient is a 39-year-old female, with a history as outlined below, who presented to the emergency department on November 20 with complaints of progressive dyspnea, fevers and chills. The patient was just hospitalized earlier this month, during which time, she was diagnosed with HIV in the setting of shortness of breath and hypoxemia. The patient subsequently underwent bronchoscopy with BAL on November 08, with antimicrobial therapy deferred to infectious diseases. Since that time, the patient has been treated empirically for PJP with clindamycin and primaquine. She was also started on Biktarvy. On presentation to the emergency department, the patient was documented to be febrile, tachycardic and tachypneic. Chemistry profile was notable for a potassium of 2.9 with creatinine of 0.98. Lactate was within normal limits. Total bilirubin was normal at 0.61. LDH was elevated at 648. Chest x-ray demonstrated bilateral groundglass opacities. The patient was subsequently placed on empiric vancomycin and Zosyn. [facility] Medical History HIV (human immunodeficiency virus infection) Anemia Migraine headache Gastric reflux Hoarseness Hx of sepsis Smoker Abnormal results of thyroid function studies Malaise and fatigue Unspecified voice and resonance disorder Hair loss Insomnia Home Medications ?Medication ?Instructions ?Recorded ?Last Taken ?Type bictegravir 50 mg-emtricitabine 1 tab PO DAILY HIV TREATMENT #30 11/08/24 Unknown Rx 200 mg-tenofovir alafenam 25 mg tabs tablet (Biktarvy) cefdinir 300 mg capsule 300 mg PO BID PNEUMONIA #10 caps 11/08/24 Unknown Rx clindamycin HCl 150 mg capsule 450 mg (3 x 150 mg) PO TID 11/08/24 Unknown Rx (Cleocin HCl) PNEUMONIA 19 days #171 caps fluconazole 100 mg tablet 100 mg PO DAILY PNEUMONIA 7 days 11/08/24 Unknown Rx #7 tabs primaquine 26.3 mg (15 mg base) 52.6 mg (2 x 26.3 mg (15 mg base)) 11/08/24 Unknown Rx tablet PO DAILY MALARIA 19 days #38 tabs ondansetron HCl 8 mg tablet 8 mg PO Q8H PRN nausea and 11/09/24 Unknown Rx vomiting #10 tabs albuterol sulfate 90 mcg/actuation 2 puff inhalation Q4H PRN PRN 11/20/24 Unknown History aerosol inhaler wheezing buspirone 5 mg tablet 5 mg PO TID depression 11/20/24 Unknown History Allergy/AdvReac Type Severity Reaction Status Date / Time sulfamethoxazole (From Allergy Low Verified 11/20/24 13:38 Bactrim) neutrophils trimethoprim (From Bactrim) Allergy Low Verified 11/20/24 13:38 neutrophils Family History Mother Cancer Aunt Thyroid disorder Grandfather CVA (cerebral vascular accident) Parkinsons Surgical History Hx of foot surgery History of oral surgery History of appendectomy History of tonsillectomy Social History household members: significant other current occupational status: employed Smoking Status: Light Smoker (<10/day) alcohol intake: current alcohol intake frequency: a few times a month substance use type: does not use what type of physical activity do you participate in: other ROS ROS Narrative 10 systems were reviewed with pertinent positives as noted in the HPI above. Physical Exam Const alert and no apparent distress Constitutional Narrative: Resting comfortably in bed at the present time. General Appearance: cooperative HEENT normocephalic and head/scalp atraumatic Eyes PERRL, EOMs intact bilaterally and conjunctivae normal Neck supple General: trachea midline Chest inspection of chest normal Resp no use of accessory muscles Effort and Inspection: able to speak in complete sentences and tachypneic Auscultation: Negative for rales, rhonchi or wheezes Cardio S1 normal heart sound and S2 normal heart sound Rate: tachycardic GI normal to inspection, nondistended, normoactive bowel sounds Extremity no clubbing, cyanosis or edema Skin no rashes or lesions noted Neuro CN's II-XII intact bilaterally, moves all extremities and no focal motor deficits Psych cooperative and affect normal Lab / Micro Data 11/21/24 04:20 11/21/24 04:20 Labs: Laboratory Results - last 24 hr 11/20/24 13:46: WBC 3.3 L, RBC 2.91 L, Hgb 8.6 L, Hct 25.2 L, MCV 86.6, MCH 29.6, MCHC 34.1, RDW Std Deviation 49.8 H, RDW Coeff of Deb 15.8 H, Plt Count 228, MPV 10.5, Immature Gran % (Auto) 0.600, Neut % (Auto) 84.7 H, Lymph % (Auto) 4.9 L, Mckenzie % (Auto) 3.1, Eos % (Auto) 6.4 H, Baso % (Auto) 0.3, Absolute Neuts (auto) 2.8, Absolute Lymphs (auto) 0.16 L, Nucleated RBC % 0, Differential Comment COMMENT, Sodium 132 L, Potassium 2.9 L, Chloride 97 L, Carbon Dioxide 19.8 L, Anion Gap 14, BUN 22 H, Creatinine 0.98, Estim Creat Clear Calc 55.36, Est GFR (MDRD) Non-Af 75, BUN/Creatinine Ratio 22.6 H, Glucose 134 H, Calcium 9.3, Phosphorus 1.9 L, Magnesium 1.7 11/20/24 14:15: Lactate Dehydrogenase 648 H 11/20/24 15:27: Lactic Acid 1.9 11/21/24 04:20: WBC 2.6 L, RBC 2.59 L, Hgb 7.7 L, Hct 23.0 L, MCV 88.8, MCH 29.7, MCHC 33.5, RDW Std Deviation 51.5 H, RDW Coeff of Deb 15.9 H, Plt Count 217, MPV 10.8, Immature Gran % (Auto) 0.800, Neut % (Auto) 77.9 H, Lymph % (Auto) 8.4 L, Mckenzie % (Auto) 3.8, Eos % (Auto) 9.1 H, Baso % (Auto) 0.0, Absolute Neuts (auto) 2.1, Absolute Lymphs (auto) 0.22 L, Nucleated RBC % 0, Differential Comment SCANNED, Sodium 133, Potassium 3.7, Chloride 102, Carbon Dioxide 18.8 L, Anion Gap 12, BUN 16, Creatinine 0.92, Estim Creat Clear Calc 58.97, Est GFR (MDRD) Non-Af 82, BUN/Creatinine Ratio 17.0, Glucose 85, Calcium 8.5, Total Bilirubin 0.61, AST 48 H, ALT 23, Alkaline Phosphatase 278 H, Total Protein 5.9, Albumin 2.7 L, Globulin 3.1, Albumin/Globulin Ratio 0.9 Micro: Microbiology 11/20/24 19:15 Mucosa - Nasopharyngeal Respiratory Panel (PCR) - Final 11/20/24 18:10 Nasal Secretion MRSA (PCR) - Final 11/20/24 18:10 Urine, Clean Catch Legionella Antigen - Final 11/20/24 18:10 Urine, Clean Catch Streptococcus pneumoniae Antigen (M - Final Imaging Radiology Impression Chest X-Ray 11/20/24 14:40 IMPRESSION: Multifocal bilateral areas of patchy airspace disease as described. Infectious process should be ruled out. Radiographic follow-up recommended. Reading Location: [facility] Charges/Coding Visit Charges Inpatient E&M: 83871 Init Hosp L3
[2024-11-21] MEDS: Enoxaparin 40 MG/0.4 ML Syringe SC (08:37)
[2024-11-21] MEDS: PRIMAQUINE PHOSPHATE 26.3 MG TABLET 52.6 MG PO (08:38)
[2024-11-21] MEDS: Acetaminophen 325 MG Tablet 650 MG PO ×2 (09:21→17:53)
[2024-11-21] MEDS: guaiFENesin 10 ML UDC (200MG/10ML) 20 ML PO ×2 (10:16→21:23)
--- NOTE | 2024-11-21 10:30 | PCM.PN.ID ---
Physical Exam Narrative Feeling ok, on O2, fever overnight, breathing about the same. Const alert and no apparent distress General Appearance: cooperative Resp Auscultation: diminished lung sounds Cardio regular rate and regular rhythm GI soft to palpation, non-tender and non-distended Skin no rashes or lesions noted ID ID: Route of nutrition/ use of supplements: [] Nutritional Intake: [] IV Site: [] Hernandez Catheter: [] Assessment & Plan Assessment/Plan (1) Hypoxia: (2) Bilateral interstitial pneumonia: (3) HIV (human immunodeficiency virus infection): PLAN: Recent dx of HIV/AIDS. No h/o ivdu. Treating empirically for PJP with clinda and primaquine. No new focal symptoms. Suspect IRIS as the cause but is at risk for other infections given immunosuppressed state. CD4 47, viral load 763k. Cont primaquine/clinda and biktarvy. Empiric zosyn, will stop vanc. No sign of thrush on exam. For IRIS, will start prednisone taper (40mg bid x 5 days, 40mg daily x 5 days, 20mg daily for 11 days) Will follow
--- NOTE | 2024-11-21 10:51 | PN.HOSP_ITS ---
Subjective Subjective Continues to have some fevers but she says that she feels a little bit better than when she came in. Objective Data Objective Data Vital Signs: Vital Signs Temp Pulse Resp BP Pulse Ox O2 Del Method O2 Flow Rate 98.8 F 116 H 29 H 104/60 96 Nasal Cannula 4 11/21/24 10:00 11/21/24 09:00 11/21/24 09:00 11/21/24 09:00 11/21/24 09:00 11/21/24 09:00 11/21/24 09:00 Oxygen Flow Rate (L/min) 4 Oxygen Delivery Method Nasal Cannula Weight: 118 lb 6.4 oz Body Mass Index (BMI) 23.1 Intake & Output: Intake and Output for Last 24 Hours 11/20/24 11/21/24 11/22/24 03:59 03:59 03:59 Intake Total 2365 / 2365 390 / 390 Output Total 90 / 90 Balance 2275 / 2275 390 / 390 Lab / Micro Data 11/21/24 04:20 11/21/24 04:20 Labs: Laboratory Results - last 24 hr 11/20/24 13:46: WBC 3.3 L, RBC 2.91 L, Hgb 8.6 L, Hct 25.2 L, MCV 86.6, MCH 29.6, MCHC 34.1, RDW Std Deviation 49.8 H, RDW Coeff of Deb 15.8 H, Plt Count 228, MPV 10.5, Immature Gran % (Auto) 0.600, Neut % (Auto) 84.7 H, Lymph % (Auto) 4.9 L, Henderson % (Auto) 3.1, Eos % (Auto) 6.4 H, Baso % (Auto) 0.3, Absolute Neuts (auto) 2.8, Absolute Lymphs (auto) 0.16 L, Nucleated RBC % 0, Differential Comment COMMENT, Sodium 132 L, Potassium 2.9 L, Chloride 97 L, Carbon Dioxide 19.8 L, Anion Gap 14, BUN 22 H, Creatinine 0.98, Estim Creat Clear Calc 55.36, Est GFR (MDRD) Non-Af 75, BUN/Creatinine Ratio 22.6 H, Glucose 134 H, Calcium 9.3, Phosphorus 1.9 L, Magnesium 1.7 11/20/24 14:15: Lactate Dehydrogenase 648 H 11/20/24 15:27: Lactic Acid 1.9 11/21/24 04:20: WBC 2.6 L, RBC 2.59 L, Hgb 7.7 L, Hct 23.0 L, MCV 88.8, MCH 29.7, MCHC 33.5, RDW Std Deviation 51.5 H, RDW Coeff of Deb 15.9 H, Plt Count 217, MPV 10.8, Immature Gran % (Auto) 0.800, Neut % (Auto) 77.9 H, Lymph % (Auto) 8.4 L, Henderson % (Auto) 3.8, Eos % (Auto) 9.1 H, Baso % (Auto) 0.0, Absolute Neuts (auto) 2.1, Absolute Lymphs (auto) 0.22 L, Nucleated RBC % 0, Differential Comment SCANNED, Sodium 133, Potassium 3.7, Chloride 102, Carbon Dioxide 18.8 L, Anion Gap 12, BUN 16, Creatinine 0.92, Estim Creat Clear Calc 58.97, Est GFR (MDRD) Non-Af 82, BUN/Creatinine Ratio 17.0, Glucose 85, Calcium 8.5, Total Bilirubin 0.61, AST 48 H, ALT 23, Alkaline Phosphatase 278 H, Total Protein 5.9, Albumin 2.7 L, Globulin 3.1, Albumin/Globulin Ratio 0.9 Micro: Microbiology 11/20/24 19:15 Mucosa - Nasopharyngeal Respiratory Panel (PCR) - Final 11/20/24 18:10 Nasal Secretion MRSA (PCR) - Final 11/20/24 18:10 Urine, Clean Catch Legionella Antigen - Final 11/20/24 18:10 Urine, Clean Catch Streptococcus pneumoniae Antigen (M - Final Radiography Diagnostic Testing: Radiology Impression Chest X-Ray 11/20/24 14:40 IMPRESSION: Multifocal bilateral areas of patchy airspace disease as described. Infectious process should be ruled out. Radiographic follow-up recommended. Reading Location: [place] [id number] Physical Exam Narrative General: Alert, Oriented x3, Cooperative, No apparent distress HEENT: Atraumatic, PERRLA, EOMI, Normocephalic Oral: Moist Mucosa Neck: Supple, No JVD Lungs: Diminished, Normal air movement, No rhonchi, No wheeze, No rales Cardiovascular: Tachycardic, Regular Rhythm, Normal S1, Normal S2, No murmurs Abdomen: Soft, Non Tender, Non-Distended, No Hepato-splenomegaly Extremities: No edema, Capillary Refill Less than 3 Seconds Skin: No rashes, No breakdown Musculoskeletal: No Tenderness to Palpation of Joints or Extremities Neurological: No focal neurological deficits, Motor Exam 5/5 strength throughout, Sensory exam intact to light touch and pain Psych/Mental Status: Normal Affect, Appropriate Assessment & Plan Assessment/Plan (1) Sepsis: (2) Bilateral interstitial pneumonia: PLAN: Plan 1. Sepsis secondary to community-acquired pneumonia in the setting of HIV ? She recently had PJP infection versus a possible immune reconstitution inflammatory syndrome because of her Biktarvy, which she will continue on the inpatient side ? Appreciate infectious disease assistance ? Continue with broad-spectrum IV antibiotics ? Continue with IV fluids ? Cultures are pending ?Will continue with primaquine, and clindamycin ? She recently had a bronchoscopy which did grow Luz albicans and she has been on fluconazole prior to admission ? She does meet septic criteria secondary to the carbon dioxide level and systolics below 90 fairly consistently 2. Chronic normocytic anemia ? Will continue to monitor hemoglobin and transfuse if below 7 ? Currently today 7.7 DVT: Lovenox Charges/Coding Visit Charges Inpatient E&M: 53873 Subs Hosp L2
--- NOTE | 2024-11-21 11:14 | CASEMGMT ---
CHAS STRAUSS Readmission Assessment and Chart Review Index: 11/06/24-11/09/24. Dx: Hypoxia, CAP Current: 11/20/24. Dx: Sepsis d/t PNA in Setting of HIV/AIDS During the index admission, the pt was newly diagnosed with HIV/AIDS. The pt was subsequently discharged home with new medication prescriptions. Pt lives at home with 2 of her sons. Pt did not qualify for any home oxygen during the index admission. CHAS STRAUSS to the pt room at this time. Pt sitting up in the bed and is calm. Pt is currently on 4L of oxygen. Pt states that she was able to get established with a PCP through the [facility] and did follow-up between admissions. Pt states that she was able to get all of her new medications and take them as ordered, including the Biktarvy. Pt re-presents to [facility] ER with fever, chills, and SOB. Pt was diagnosed with Sepsis d/t PNA in the setting of HIV/AIDS. Pt was admitted to the ICU for further management. ID is consulted and following. Moving forward, pt plans to DC home with her sons once she is medically ready. Pt denies the need for any OP therapy. Pt is currently denying the need for PT/OT in the hospital and states that she is entirely independent. Pt states that she would like a pulse oximeter to check her HR and oxygen levels. Pt was educated on purchasing options and states that she can afford one. Pt is currently requiring additional oxygen and may qualify for home oxygen use. A verbal list of local in-network DME companies were provided to the pt at this time. Pt prefers [employer]Pt denies any further questions, concerns, or needs at this time. Maximino GONZALEZ RN, CM
[2024-11-21] MEDS: LORazepam 0.5 MG Tablet PO (11:41)
[2024-11-21] MEDS: predniSONE 20 MG Tablet 40 MG PO ×2 (11:41→17:44)
--- NOTE | 2024-11-21 15:14 | CHAPLAIN ---
Type of Pastoral Visit _x__ Initial Visit ___ Follow-up Visit ___ On-call Visit ___ General Patient Visit ___ Spiritual Assessment ___ Family Conference ___ Bereavement ___ Rapid Response ___ Code Blue ___ Other (describe below) Pastoral Care Referral From _x__ Patient ___ Family ___ Nurse ___ Physician ___ Child Nutrition Manager ___ Lamp Replacer ___ Other (describe below) Sacrament/Intervention _x__ Active listening ___ Anointing ___ Pentecostal ___ Bereavement ___ Communion _x__ Sallie exploration ___ _x__ Life review _x__ Prayer ___ Reconciliation ___ Sacrament of Sick _x__ Supportive presence ___ Wedding ___ Other (describe below) Pastoral Comments patient has learned about a new diagnosis that by her admission leaves her with angry thoughts and many questions that elicit fear and anxiety; pt is able to articulate her frustrations and some of the questions in her mind; pt has other concerns including financial, work ability and continuation, family reactions, and social/muslim processing; pt admits to concern about how to tell the news to her three teenage sons; pt has some helpful insights but is focused more of the negative possibilities; conversation steered toward what is positive, hopeful, more likely, etc.; pt welcomes presence and prayers for support today
[2024-11-21] MEDS: MELATONIN 3 MG TABLET PO (21:26)
[2024-11-22 02:00] VITALS: BP 107/64; PULSE 72; RESP 14; TEMP 36.4; O2SAT 94
[2024-11-22 06:00] VITALS: BP 94/61; PULSE 94; RESP 16; O2SAT 92; BMI 23.1
[2024-11-22] MEDS: Piperacil/Tazobactam 3.375 GM in 0.9% Normal Saline (50mL MB+) 50 ML IV (06:00)
[2024-11-22] MEDS: Ondansetron 4 MG/2 ML Vial IV (06:08)
[2024-11-22] MEDS: Clindamycin HCl 150 MG Capsule 450 MG PO (06:12)
[2024-11-22] MEDS: busPIRone 5 MG Tablet PO (06:13)
--- NOTE | 2024-11-22 06:51 | PCM.PN.INT ---
Assessment & Plan Assessment/Plan (1) Hypoxia: PLAN: Plan RECOMMENDATIONS: 1. Continue antimicrobials per ID recommendations. 2. Prednisone taper as prescribed. 3. Continue Biktarvy, along with clindamycin and primaquine. 4. Lovenox for DVT prophylaxis. 5. Wean supplemental oxygen to maintain saturations at or above 90%. 6. Encourage incentive spirometer use and mobilize patient as tolerated. 7. Will sign off from a critical care perspective. Please call with any additional questions. IMPRESSIONS: 1. Shortness of breath and hypoxemia Clinical concern for underlying pneumonia versus IRIS in the setting of newly diagnosed HIV/AIDS on empiric treatment for PJP on an outpatient basis by infectious diseases with clindamycin and primaquine. Cultures are currently pending. Antimicrobials will be continued per ID recommendations along with prednisone taper, as ordered. Recommend performing a walking oximetry study prior to consideration for discharge home. 2. History of anemia/tobacco dependency Complicates care, management, recovery and prognosis. Continue supportive measures as noted above. Continue to monitor blood counts and transfuse if hemoglobin drops below 7 g/dL. This note was generated with [employer] dictation software. It may contain incorrect words, spelling, and punctuation that were not noted in checking the note before signing. Subjective Subjective The patient was seen and examined at the bedside this morning. Events from the last 24 hours have been reviewed. The patient is currently afebrile, hemodynamically stable and maintaining appropriate oxygen saturations on 2 L/min via nasal cannula. The patient reported that she slept well last night and has no specific complaints this morning. Objective Data Objective Data The patient's most recent lab work, culture data and imaging studies have all been personally reviewed. Sputum culture is currently pending. Vital Signs: Vital Signs Temp Pulse Resp BP Pulse Ox O2 Del Method O2 Flow Rate 97.6 F L 94 16 94/61 92 Nasal Cannula 2 11/22/24 02:00 11/22/24 06:00 11/22/24 06:11/22/24 06:11/22/24 06:00 11/22/24 06:11/22/24 06:00 Oxygen Flow Rate (L/min) 2 Oxygen Delivery Method Nasal Cannula Weight: 118 lb 6.4 oz Body Mass Index (BMI) 23.1 Intake & Output: Intake and Output for Last 24 Hours 11/20/24 11/21/24 11/22/24 23:59 23:59 23:59 Intake Total 2315 / 2315 490 / 490 50 / 50 Output Total 90 / 90 Balance 5 / 5 490 / 490 50 / 50 Medical Nutrition Assessment Dietitian: Malnutrition Criteria Met Start: 11/21/24 15:09 Freq: Status: Active Protocol: Document 11/21/24 15:09 TEODORA (Rec: 11/21/24 15:09 [id number]) Nutrition Malnutrition Evidence of Yes Malnutrition Exists Malnutrition (severe Chronic ): Evidenced By Suboptimal Energy Intake (Severe),Weight Loss (Severe) Clinical Problem Chronic Disease or Condition Related Malnutrition Etiology severe related to inadequate oral intakes secondary to PNA and HIV/AIDS Signs/Symptoms as evidenced by PO intakes meeting <75% of estimated nutrition needs x 4 months and 15.61kg (22.9%) in ~5 months Status Active Problem Unintended Weight Loss Status Inactive Problem Recommendation Dietitian Continue Regular diet to optimize oral intakes. Recommendations/ Will order 120mL Ensure Plus High Protein 4x daily. Changes Lab / Micro Data Attestation: I reviewed the patient's lab results. 11/21/24 04:20 11/21/24 04:20 Micro: Microbiology 11/20/24 15:27 Blood Culture (Wb) - Anticubital Right Bacteria Detection (PCR) - Preliminary Staphylococcus epidermidis 11/20/24 15:27 Blood Culture (Wb) - Anticubital Right Blood Culture - Preliminary 11/21/24 12:02 Sputum, Expectorated/Coughed Gram Stain - Final 11/20/24 19:15 Mucosa - Nasopharyngeal Respiratory Panel (PCR) - Final 11/20/24 18:10 Nasal Secretion MRSA (PCR) - Final 11/20/24 18:10 Urine, Clean Catch Legionella Antigen - Final 11/20/24 18:10 Urine, Clean Catch Streptococcus pneumoniae Antigen (M - Final Physical Exam Const alert, oriented x3 and no apparent distress General Appearance: cooperative HEENT normocephalic, head/scalp atraumatic and moist oral mucous membranes Eyes PERRL, EOMs intact bilaterally and conjunctivae normal Neck supple General: trachea midline Chest inspection of chest normal Resp normal respiratory effort and no use of accessory muscles Effort and Inspection: able to speak in complete sentences Auscultation: Negative for rales, rhonchi or wheezes Cardio regular rate, regular rhythm, S1 normal heart sound and S2 normal heart sound GI normal to inspection, nondistended, normoactive bowel sounds Extremity no clubbing, cyanosis or edema Skin no rashes or lesions noted Neuro CN's II-XII intact bilaterally, moves all extremities and no focal motor deficits Psych cooperative and affect normal Charges/Coding Visit Charges Inpatient E&M: 09150 Subs Hosp L2
[2024-11-22] MEDS: Albuterol 2.5 MG/3 ML VIAL.NEB. INHALATION (08:37)
[2024-11-22 08:40] VITALS: PULSE 93; RESP 18; O2SAT 93
[2024-11-22 09:00] VITALS: BP 100/72; PULSE 111; RESP 17; TEMP 36.4; O2SAT 97
[2024-11-22] MEDS: predniSONE 20 MG Tablet 40 MG PO (09:03)
[2024-11-22] MEDS: PRIMAQUINE PHOSPHATE 26.3 MG TABLET 52.6 MG PO (09:05)
[2024-11-22] MEDS: guaiFENesin 10 ML UDC (200MG/10ML) 20 ML PO (09:27)
[2024-11-22] MEDS: Acetaminophen 325 MG Tablet 650 MG PO (09:28)
--- NOTE | 2024-11-22 10:01 | CASEMGMT ---
SW participated in interdisciplinary rounds with care team. Pt is PCU status and expected to transfer units. Pt remains sensitive to diagnosis and privacy regarding diagnosis. SW remains available to follow. AILIN Trotter
--- NOTE | 2024-11-22 11:05 | PCM.PN.ID ---
Physical Exam Narrative Feeling much better, no fever, breathing improved, slept well Const alert and no apparent distress General Appearance: cooperative HEENT HEENT Narrative: no thrush Resp normal air movement and clear to auscultation bilaterally Cardio regular rate and regular rhythm GI soft to palpation, non-tender and non-distended Skin no rashes or lesions noted ID ID: Route of nutrition/ use of supplements: [] Nutritional Intake: [] IV Site: [] Hernandez Catheter: [] Assessment & Plan Assessment/Plan (1) Hypoxia: (2) Bilateral interstitial pneumonia: (3) HIV (human immunodeficiency virus infection): PLAN: Recent dx of HIV/AIDS. No h/o ivdu. Treating empirically for PJP with clinda and primaquine. No new focal symptoms. Suspect IRIS as the cause but is at risk for other infections given immunosuppressed state. CD4 47, viral load 763k. Cont primaquine/clinda and biktarvy. Will stop zosyn. No sign of thrush on exam. For IRIS, 11/21 started prednisone taper (40mg bid x 5 days, 40mg daily x 5 days, 20mg daily for 11 days). Feeling much better. Ok for d/c home. Primaquine/clinda finishes 11/28, then will start atovaquone liquid 1500mg daily for secondary PJP prophylaxis. Gave her # for [facility]. ID followup in 4 weeks with labs prior to appt. Will follow, d/w Dr. Cardona. Updated d/c meds.
--- NOTE | 2024-11-22 12:38 | DS.PCM_ITS ---
Providers Date of Admission: 11/20/24 Primary Care Physician: LILI Taylor Consultations 11/20/24 17:47 Consult: Computer Consultant / Pulmonary Medicine Routine Consulting Provider: Intensivists/Pulmonary Med Reason for Consult: sepsis due to pneumonia in setting of HIV/AIDS EMERGENT Consult: No Notified: Yes Date Notified: 11/20/24 Time Notified: 15:59 Method of Notification: Text 11/21/24 09:00 Consult: Infectious Disease Routine Consulting Provider: Chidi Arellano Reason for Consult: HIV EMERGENT Consult: No Notified: Yes Date Notified: 11/21/24 Time Notified: 09:00 Method of Notification: Verbal Reason For Visit: SEPSIS DUE TO PNEUMONIA IN SETTING OF HIV/AIDS Diagnosis Discharge Diagnosis (1) Hypoxia: Status: Acute Code(s): R09.02 - Hypoxemia (2) Bilateral interstitial pneumonia: Status: Acute Code(s): J84.9 - Interstitial pulmonary disease, unspecified (3) HIV (human immunodeficiency virus infection): Status: Acute Code(s): Z21 - Asymptomatic human immunodeficiency virus [HIV] infection status Medications at Discharge Home Medications bictegravir 50 mg-emtricitabine 200 mg-tenofovir alafenam 25 mg tablet (Biktarvy) 1 tab PO DAILY HIV TREATMENT #30 tabs 11/08/24 ondansetron HCl 8 mg tablet 8 mg PO Q8H PRN nausea and vomiting #10 tabs 11/09/24 albuterol sulfate 90 mcg/actuation aerosol inhaler 2 puff inhalation Q4H PRN PRN wheezing 11/20/24 buspirone 5 mg tablet 5 mg PO TID depression 11/20/24 atovaquone 750 mg/5 mL oral suspension 1,500 mg (10 mL) PO DAILY 30 days #300 mL 11/22/24 clindamycin HCl 150 mg capsule (Cleocin HCl) 450 mg (3 x 150 mg) PO TID PNEUMONIA 19 days #171 caps 11/22/24 ferrous sulfate 325 mg (65 mg iron) tablet 325 mg PO QODAY #30 tabs 11/22/24 prednisone 10 mg tablet 10 mg PO DAILY #29 tabs 11/22/24 primaquine 26.3 mg (15 mg base) tablet 52.6 mg (2 x 26.3 mg (15 mg base)) PO DAILY MALARIA 19 days #38 tabs 11/22/24 Hospital Course Operations None Procedures None Summary of Care Provided Minutes Spent on Discharge: 35 Hospital Course: This is a 39-year-old female that was recently discharged with pneumonia concern for active HIV. During that hospitalization she did have a CD4 count which came back after she left and it was noted to be an absolute CD4 count of 47. So she as HIV/AIDS. She was started on ART therapy prior to discharge with Biktarvy despite not having viral load received before count. The patient came back with fever chills and shortness of breath. Patient was seen by infectious disease who was concerned that patient may have IRIS. Patient was ambulated today and lowest her pulse ox got was to 91%. Patient does not use IV drugs and knows the individual who gave it to her and found out later that he knew he had HIV and not had been compliant with treatment. So reassurance was provided to the patient and advised her to have close follow-up with infectious disease as well as her primary care doctor. Additionally she does have anemia. She does have periods but she describes them as not being heavy. I would recommend that she be on iron. I would be concerned with her having the HIV/AIDS that this could be anemia of chronic disease and hopefully with treating the HIV that that would improve with time. Physical Exam Const Constitutional Narrative: Up in chair. No respiratory distress. No conversational dyspnea. HEENT HEENT Narrative: No thrush on tongue nor on palate. Resp normal respiratory effort, no retractions, no use of accessory muscles and clear to auscultation bilaterally Cardio regular rate, regular rhythm, S1 normal heart sound and S2 normal heart sound GI normal to inspection, nondistended, normoactive bowel sounds and soft to palpation Medical Records Data Medical Nutrition Assessment Dietitian: Malnutrition Criteria Met Start: 11/21/24 15:09 Freq: Status: Active Protocol: Document 11/21/24 15:09 TEODORA (Rec: 11/21/24 15:09 [id number]) Nutrition Malnutrition Evidence of Yes Malnutrition Exists Malnutrition (severe Chronic ): Evidenced By Suboptimal Energy Intake (Severe),Weight Loss (Severe) Clinical Problem Chronic Disease or Condition Related Malnutrition Etiology severe related to inadequate oral intakes secondary to PNA and HIV/AIDS Signs/Symptoms as evidenced by PO intakes meeting <75% of estimated nutrition needs x 4 months and 15.61kg (22.9%) in ~5 months Status Active Problem Unintended Weight Loss Status Inactive Problem Recommendation Dietitian Continue Regular diet to optimize oral intakes. Recommendations/ Will order 120mL Ensure Plus High Protein 4x daily. Changes Weight / BMI Weight Weight: 53.705 kg Body Mass Index (BMI) 23.1 ABG / Lab / Microbiology Data 11/21/24 04:20 11/21/24 04:20 Microbiology: Microbiology 11/20/24 15:27 Blood Culture (Wb) - Anticubital Right Bacteria Detection (PCR) - Preliminary Staphylococcus epidermidis 11/20/24 15:27 Blood Culture (Wb) - Anticubital Right Blood Culture - Preliminary 11/21/24 12:02 Sputum, Expectorated/Coughed Gram Stain - Final 11/20/24 19:15 Mucosa - Nasopharyngeal Respiratory Panel (PCR) - Final 11/20/24 18:10 Nasal Secretion MRSA (PCR) - Final 11/20/24 18:10 Urine, Clean Catch Legionella Antigen - Final 11/20/24 18:10 Urine, Clean Catch Streptococcus pneumoniae Antigen (M - Final D/C Instructions Discharge Diet: No restrictions DC O2, CPAP, BIPAP Needs Home O2 Discharge instructions: No Meaningful Use Info Meaningful Use Meaningful Use Diagnoses (Choose all that apply): None applicable Ischemic Stroke Statin Dosing Therapy Reference: STATIN DOSE THERAPY REFERENCE: * Patients > 75 years receive moderate or high dose statin therapy. * Patients 75 years or YOUNGER should receive HIGH intensity statin dose unless contraindicated. You will be required to document reason for non-treatment if statin daily dose does not meet guidelines. HIGH DOSE STATIN THERAPY DAILY Atorvastatin > than or = to 40 mg Rosuvastatin > than or = to 20 mg Amlodipine + Atorvastatin > than or = to 2.5/40 mg Ezetimibe + Simvastatin 10/80 mg Simvastatin 80mg Discharge Plan Admission Admit Date/Time: 11/20/24 15:54 Primary Reason for Your Visit: IRIS Attending Provider: Pb Adams Primary Care Provider: Tia Hudson Consulting Providers: Cody Martínez; Chidi Arellano; Joseph Osuna Instructions Additional Instructions / Restrictions: You had what looks like immune reconstitution inflammatory syndrome (IRIS) secondary to improvement of your immune system with the Biktarvy. To help with this, you will be on prednisone for 30 days. Please follow-up with infectious disease. Additionally while you are here it is noted that your hemoglobin (your blood count) is low. I suspect that this is probably due to your body's resources spent fighting various diseases along with HIV. Suspect as the HIV improves that that should improve as well but in the meantime I would have you taking iron. I would like for you to have some blood work in the coming weeks to make sure that that is remaining stable. Discharge Orders/Prescriptions Prescriptions: New prednisone 10 mg tablet 10 mg PO DAILY Qty: 29 0RF Rx Instructions: Take 2 pills twice a day for 2 days, then 1 pill twice a day for 5 days, then 1 pill in AM for 11 days atovaquone 750 mg/5 mL suspension 1,500 mg PO DAILY 30 Days Qty: 300 3RF Rx Instructions: must administer with food, preferably a high-fat meal. Start taking 11/28/24 when clinda and primaquine finish. 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 ferrous sulfate 325 mg (65 mg iron) tablet 325 mg PO QODAY Qty: 30 0RF Continued Biktarvy 50-200-25 mg tablet 1 tab PO DAILY Qty: 30 2RF ondansetron HCl 8 mg tablet 8 mg PO Q8H PRN (Reason: nausea and vomiting) Qty: 10 0RF buspirone 5 mg tablet 5 mg PO TID albuterol sulfate 90 mcg/actuation HFA aerosol inhaler 2 puff INHALATION Q4H PRN PRN (Reason: wheezing) clindamycin HCl [Cleocin HCl] 150 mg capsule 450 mg PO TID 19 Days Qty: 171 0RF Rx Instructions: stop date 11/28/24 primaquine 26.3 mg (15 mg base) Tablet 52.6 mg PO DAILY 19 Days Qty: 38 0RF Rx Instructions: stop date 11/28/24 Discontinued fluconazole 100 mg Tablet 100 mg PO DAILY 7 Days Qty: 7 0RF cefdinir 300 mg capsule 300 mg PO BID Qty: 10 0RF Referrals / Follow Up: Chidi Arellano MD [Med Staff - Active Staff] - Within 1 Month Tia Hudson NP-C [Primary Care Provider] - Within 2 Weeks Disposition Disposition (needs filled in before D/C Order can be placed): Home, Self Care Charges/Coding Visit Charges Inpatient E&M: 03105 Disch Hosp >30min
[2024-11-22 12:51] VITALS: O2SAT 91; O2SAT 97
--- NOTE | 2024-11-22 12:55 | CASEMGMT ---
Pt has an order for DC placed. Per the automotive detailer, pt does not qualify for home oxygen. No further DC needs identified.
[2024-11-22 14:17] VITALS: TEMP 36.4
== END 2024-11-22 14:00 | disposition home or self-care (01) | DRG 892 ==
LOC: ED 16:04 → ICU 16:25
PROVIDERS: Admitting Provider Hospitalist; Emergency Provider Emergency Medicine; PCP Nurse Practitioner Family
DX: A41.9 Sepsis, unspecified organism (principal); B20 Human immunodeficiency virus [HIV] disease; E43 Unspecified severe protein-calorie malnutrition; D63.8 Anemia in other chronic diseases classified elsewhere; E87.1 Hypo-osmolality and hyponatremia; J84.9 Interstitial pulmonary disease, unspecified; F17.200 Nicotine dependence, unspecified, uncomplicated; E87.6 Hypokalemia; Z79.51 Long term (current) use of inhaled steroids; Z79.899 Other long term (current) drug therapy; Z68.21 Body mass index [BMI] 21.0-21.9, adult
CPT/HCPCS: 36415; 71046; 80048; 80053; 82728; 83540; 83550; 83605; 83615; 83735; 84100; 85025; 87040; 87070; 87149; 87205; 87449; 87633; 87641; 93005; 94640; 94668; 94760; 94762; 97802; 99252; 99284; A4216; G0463; J2405

== ENCOUNTER → 2024-12-02 | Outpatient (CLI) | payer MEDICAID, SELFPAY ==
[2024-12-02 12:39] LABS: Absolute Lymphocyte Count 1.12 X10^3/uL (0.83-4.51); Absolute Neutrophil Count 3.7 X10^3/uL (2.0-7.7); Basophil# 0.03 X10^3/uL; Basophil% 0.5 % (0-1); Eosinophils% 1.8 % (0-5); Hemoglobin 9.4 g/dL (12.0-15.0); Lymphocyte # 1.12 X10^3/ul (0.83-4.51); Lymphocyte % 20.3 % (19-41); Mean Corp Hgb Conc 31.3 g/dL (32-36); Mean Corpuscular Hgb 30.4 pg (27.0-32.0); Mean Corpuscular Volume 97.1 fL (81-99); Mean Platelet Vol. 9.9 fl (6.2-12.0); Monocyte# 0.51 X10^3/uL; Monocyte% 9.3 % (0-10); NRBC Flagged by Analyzer 0 % (0-5); Neutrophil # 3.72 X10^3/uL (2.7-7.7); Neutrophil % 67.6 % (47-70); POSITIVE MORPHOLOGY YES; Platelet Count 294 K/mm3 (150-450); RBC Distribution Width CV 19.2 % (11.6-14.6); RBC Distribution Width SD 66.4 fl (35.1-43.9); Red Blood Count 3.09 M/mm3 (4.2-5.4); White Blood Count 5.5 K/mm3 (4.4-11.0)
[2024-12-02 12:42] LABS: ALB/GLOB Ratio 1.2 RATIO (0.9-2.4); AST(SGOT) 34 U/L (<=31); Alanine Aminotransfer ALT/SGPT 38 U/L (<=34); Albumin, Serum 3.8 g/dL (3.5-5.0); Alkaline Phosphatase 255 U/L (35-104); Anion Gap 10 (5-15); BUN 27 mg/dL (4-19); BUN/Creat Ratio 33.2 RATIO (10-20); Calcium,Total 9.7 mg/dL (7.6-11.0); Carbon Dioxide 25.4 mmol/L (21.0-32.0); Chloride 100 mmol/L (98-108); Creatinine, Serum 0.81 mg/dL (0.70-1.20); EST Glomerular Filtration Rate 95 (>60); Globulin 3.3 g/dL (2.2-4.2); Glucose 94 mg/dL (70-99); Potassium 4.3 mmol/L (3.3-5.1); Protein, Total 7.1 g/dL (5.9-8.4); Sodium Level 135 mmol/L (133-145); Total Bilirubin 0.37 mg/dL (0.00-1.30)
[2024-12-02 13:48] LABS: Anisocytosis 1+
[2024-12-02 13:49] LABS: Differential Indicated SCAN CRITERIA MET
== END | disposition home or self-care (01) ==
LOC: VSLAB 10:13
PROVIDERS: PCP Nurse Practitioner Family; Visit Provider Nurse Practitioner Family
DX: E87.6 Hypokalemia (principal)
CPT/HCPCS: 36415; 80053; 85025

== ENCOUNTER → 2024-12-25 | Outpatient (CLI) | payer MEDICAID, SELFPAY ==
[2024-12-27 17:08] LABS: Hematocrit 37.9 % (34.0-46.6); Hemoglobin 11.3 g/dL (11.1-15.9); MCH 31.4 pg (26.6-33.0); MCHC 29.8 g/dL (31.5-35.7); MCV 105 fL (79-97); Percent % CD4 Pos. Lymph. 33.3 % (30.8-58.5); RDW 17.9 % (11.7-15.4)
[2024-12-30 16:08] LABS: HIV-1 RNA by PCR, Quant. 110 copies/mL (.); LOG10 HIV-1 RNA 2.041 (.)
== END | disposition home or self-care (01) ==
LOC: VSLAB 15:43
PROVIDERS: PCP Nurse Practitioner Family; Visit Provider Internal Medicine Infectious Disease
DX: Z21 Asymptomatic human immunodeficiency virus [HIV] infection status (principal)
CPT/HCPCS: 36415; 86361; 87536

== ENCOUNTER → 2025-01-14 | Outpatient (CLI) | payer MEDICAID, SELFPAY ==
[2025-01-14 16:54] LABS: Hematocrit 35.1 % (37-47); Hemoglobin 12.1 g/dL (12.0-15.0); Immature Granulocytes Count 0.020 X10^3/uL (0.0-0.0); Mean Corp Hgb Conc 34.5 g/dL (32-36); Mean Corpuscular Volume 94.6 fL (81-99); Mean Platelet Vol. 8.2 fl (6.2-12.0); NRBC Flagged by Analyzer 0 % (0-5); Platelet Count 349 K/mm3 (150-450); RBC Distribution Width CV 16.5 % (11.6-14.6); RBC Distribution Width SD 56.6 fl (35.1-43.9); Red Blood Count 3.71 M/mm3 (4.2-5.4); White Blood Count 6.5 K/mm3 (4.4-11.0)
[2025-01-14 17:40] LABS: AST(SGOT) 25 U/L (<=31); Alanine Aminotransfer ALT/SGPT 27 U/L (<=34); Albumin, Serum 4.6 g/dL (3.5-5.0); Alkaline Phosphatase 214 U/L (35-104); Anion Gap 16 (5-15); BUN 19 mg/dL (4-19); BUN/Creat Ratio 21.8 RATIO (10-20); Calcium,Total 10.1 mg/dL (7.6-11.0); Carbon Dioxide 20.2 mmol/L (21.0-32.0); Chloride 100 mmol/L (98-108); Globulin 3.6 g/dL (2.2-4.2); Glucose 86 mg/dL (70-99); Potassium 3.7 mmol/L (3.3-5.1); Syphilis Antibodies Nonreactive (Nonreactive)
[2025-01-17 14:08] LABS: Hematocrit 39.2 % (34.0-46.6); Hemoglobin 12.6 g/dL (11.1-15.9); MCH 32.6 pg (26.6-33.0); MCHC 32.1 g/dL (31.5-35.7); MCV 101 fL (79-97); Percent % CD4 Pos. Lymph. 31.4 % (30.8-58.5); QNTFERON TB Mitogen Value > 10.00 IU/mL (.); QNTFERON TB Nil Value 0.07 IU/mL (.); QNTFERON TB1+ Ag Value 0.07 IU/mL (.); QNTFERON TB2+ Ag Value 0.07 IU/mL (.); QNTIFERON TB Positive Criteria Negative (Negative); RDW 16.7 % (11.7-15.4)
[2025-01-18 04:07] LABS: HIV-1 RNA by PCR, Quant. 90 copies/mL (.); LOG10 HIV-1 RNA 1.954 (.)
== END | disposition home or self-care (01) ==
LOC: VSLAB 16:15
PROVIDERS: PCP Nurse Practitioner Family
DX: H30.91 Unspecified chorioretinal inflammation, right eye (principal); B20 Human immunodeficiency virus [HIV] disease
CPT/HCPCS: 36415; 80053; 85025; 86361; 86480; 86777; 86778; 86780; 87497; 87536